=== PATIENT | male | born 1955 | race Asian ===

== ENCOUNTER 2017-06-01 17:13 | Inpatient (IN) | payer BC, MEDICAID ==
[~2017-06-01] VITALS: Ht 167.6 cm; Wt 59.0 kg
[~2017-06-01 17:13] MED LIST: ACETAMINOP650 MG/20. GT; ACETAMINOPHEN325 M1 GT; ALIGN PROBIOTIC; ALIGN PROBIOTIC GT; BACTROBAN 2% OI15 GM TOPIC; BISACODYL10 M1; BISCOLAX10 MG GT; CALCIUM 500 +1 EAC3 PO; CEFEPIME-D1 GM/50 ML IVPB; CLOTRIMAZOLE15 GM TOPIC; COLACE100 MG/10 GT; COLACE250 MG GT; Colace GT; DEXILANT30 MG ORAL; DIFLUCAN100 MG GT; ENALAPRIL MALEA10 MG GT; FLEET ENEMA133 M1; GLUCERNA 1.2; ISENTRESS400 MG ORAL; K-PHOS NEUTRAL250 MG GT; METOPROLOL TART50 MG GT; MIRALAX17 G2; MULTIVITAMIN HEX5 ML GT; MULTIVITAMINS1 EAC2 GT; NKM; NORCO 5-325 TA1 EAC1 ORAL; NORVASC5 MG GT; ONDANSETRON4 MG/2 M2 IM; OS-CAL 500+D C1 EAC1 GT; PROAIR HFA8.5 GM INH; PROTONIX40 M2 GT; SENNA LAX8.6 MG GT; SENNA8.6 M3 GT; SPIRIVA18 MCG INH; TRAZODONE HCL50 MG GT; TRUVADA1 TAB ORAL; TUMS500 MG GT; VASOTEC10 MG ORAL; Vancomycin Hcl MISC; ZITHROMAX500 M1 IVPB; ZOFRAN 4 MG4 MG/2 ML IM; ZOFRAN4 M3 GT; ZOFRAN4 MG IM; ZOFRAN4 MG/5 ML PO
[2017-06-01] MEDS ORDERED: Pantoprazole Inj IV ONE (17:30)
[2017-06-01 18:13] LABS: MEAN CORPUSCULAR HGB CONC 31.6 G/DL (32.0-36.0); MEAN CORPUSCULAR VOLUME 89 FL (80-99); MEAN PLATELET VOLUME 6.3 FL (6.5-10.1); PLATELET COUNT 377 K/UL (150-450); RED BLOOD COUNT 6.05 M/UL (4.70-6.10); RED CELL DISTRIBUTION WIDTH 12.8 % (11.6-14.8); WHITE BLOOD COUNT 14.9 K/UL (4.8-10.8)
[2017-06-01 18:16] LABS: LYMPHOCYTES % (AUTO) 4.1 % (20.0-45.0); MONOCYTES % (AUTO) 4.8 % (1.0-10.0); NEUTROPHILS % (AUTO) 90.4 % (45.0-75.0)
[2017-06-01 18:17] LABS: BASOPHILS % (AUTO) 0.7 % (0.0-2.0)
[2017-06-01 18:22] LABS: APPEARANCE,URINE CLOUDY; KETONES,URINE NEGATIVE (NEGATIVE); LEUKOCYTE ESTERASE ,URINE 3+ (NEGATIVE); NITRITE,URINE NEGATIVE (NEGATIVE); PH,URINE 8 (4.5-8.0); PROTEIN,URINE 2+ (NEGATIVE); UROBILINOGEN,URINE NORMAL MG/DL (0.0-1.0)
[2017-06-01 18:38] LABS: BACTERIA,URINE MANY /HPF; TRIPLE PHOSPHATE CRYSTAL,UR MANY /LPF; WBC,URINE 0-2 /HPF (0 - 0)
[2017-06-01 18:46] LABS: CKMB 7.8 NG/ML (0.0-3.6)
[2017-06-01 18:50] VITALS: BP 133/99
[2017-06-01 18:55] LABS: ALANINE AMINOTRANSFERASE 28 U/L (12-78); ALBUMIN/GLOBULIN RATIO 0.9 (1.0-2.7); ANION GAP 13 mmol/L (5-15); ASPARTATE AMINO TRANSFERASE 38 U/L (15-37); CARBON DIOXIDE 20 MMOL/L (21-32); CHLORIDE 99 MMOL/L (98-107); LIPASE 135 U/L (73-393); POTASSIUM 4.9 MMOL/L (3.5-5.1); SODIUM 132 MMOL/L (136-145); TOTAL PROTEIN 8.9 G/DL (6.4-8.2)
[2017-06-01 19:08] LABS: BILIRUBIN,DIRECT 0.2 MG/DL (0.0-0.3); CREATININE 1.5 MG/DL (0.55-1.30); GLOMERULAR FILTRATION RATE 47.1 mL/min (>60)
[2017-06-01] MEDS ORDERED: DULCOLAX10 MG RC (19:14)
[2017-06-01] MEDS ORDERED: FLEET ENEMA133 ML RECTAL (19:14)
[2017-06-01 19:16] LABS: CALCIUM 10.2 MG/DL (8.5-10.1)
[2017-06-01] MEDS ORDERED: CITRACAL + D E1 EACH GT (19:17)
[2017-06-01] MEDS ORDERED: OMEPRAZOLE40 M1 ORAL (19:17)
[2017-06-01] MEDS ORDERED: PAZEO2.5 ML OP (19:20)
[2017-06-01] MEDS ORDERED: PHOS-NAK PACKE1 EAC1 GT (19:20)
[2017-06-01] MEDS ORDERED: PROSCAR5 MG GT (19:20)
[2017-06-01] MEDS ORDERED: sodium chloride GT (19:22)
[2017-06-01] MEDS ORDERED: TAMSULOSIN HCL0.4 MG GT (19:22)
[2017-06-01] MEDS ORDERED: Piperacillin/Tazobactam 3.375 GM in NS 55 ML IVPB ONE (19:30)
[2017-06-01] MEDS ORDERED: Fleet's Enema 133ml RECTAL ONE (19:30)
[2017-06-01] MEDS ORDERED: Zosyn 3.375gm inj ONE (19:34)
--- NOTE | 2017-06-01 19:35 | Emergency Room Report ---
History of Present Illness General Chief Complaint: Dyspnea/Respdistress Source: Medical Record Present Illness HPI Patient is a 62-year-old male presented after increased abdominal distention as well as difficulty breathing. Patient prior history of the G-tube dependence and had previous episodes of fecal impaction. Patient was noted to having to discoloration from his Quiles catheter. The patient been given a breathing treatment by facility prior to being transported. He was noted to have increased abdominal distention. He had been recently given an enema without any resolution Allergies: Coded Allergies: NO KNOWN ALLERGIES (Unverified Allergy, Unknown, 03/02/15) Nursing Documentation-[facility] Past Medical History: No History, Except For Hx Cardiac Problems: Yes Hx Hypertension: Yes Hx Pacemaker: No Hx Asthma: No Hx COPD: Yes Hx Diabetes: No Hx Cancer: No Hx Gastrointestinal Problems: No Hx Dialysis: No Hx Neurological Problems: No Hx Cerebrovascular Accident: Yes Hx Seizures: Yes Hx Paralysis: Yes - Right sided Hemiplegia Hx Head Trauma: Yes - INTERCEREBRAL HEMORRHAGE Hx Speech Problem: Yes Hx Aphasia: Yes Hx Dysphasia: Yes Hx Weakness: Yes Physical Exam Vital Signs Date Time Temp Pulse Resp B/P (MAP) Pulse Ox O2 Delivery O2 Flow Rate FiO2 06/01/17 17:07 97.0 93 20 143/102 99 Room Air General Appearance: alert, moderate distress, Chronically Ill Eyes: bilateral eye PERRL ENT: hearing grossly normal Neck: limited range of motion Respiratory: chest non-tender, lungs clear, no rhonchi Cardiovascular #1: normal inspection, normal peripheral pulses, regular rate, rhythm Gastrointestinal: normal bowel sounds, distended, tenderness Genitourinary: other - quiles catheter in place urethral ulceration Musculoskeletal: decreased range of motion - left upper extremity Neurologic: alert, responsive, motor weakness - left upper extremity Medical Decision Making Diagnostic Impression: Primary Impression: Sepsis Additional Impressions: Quiles catheter in place on admission Obstructed Quiles catheter Feeding by G-tube ER Course Patient presented for increased distention. Differential diagnosis included wasn't limited to pneumonia, urinary tract infection, drug fever, allergic reaction, sepsis, cholecystitis, among others.Because of complexity of patient' s case laboratory testing and imaging studies were ordered. A Quiles catheter was changed with a large amount of purulent urine. The patient was noted to have CT imaging of the abdomen pelvis read by radiology which showed severe bladder distention, Quiles catheter was in the bladder. The patient started on IV antibiotics as well as IV fluids . No ureteral calculus was noted. Dr. Raza Oquendo was contacted for inpatient management due to primary care physician Labs Test 06/01/17 17:35 06/01/17 18:10 White Blood Count 14.9 K/UL (4.8-10.8) Red Blood Count 6.05 M/UL (4.70-6.10) Hemoglobin 17.0 G/DL (14.2-18.0) Hematocrit 53.7 % (42.0-52.0) Mean Corpuscular Volume 89 FL (80-99) Mean Corpuscular Hemoglobin 28.0 PG (27.0-31.0) Mean Corpuscular Hemoglobin Concent 31.6 G/DL (32.0-36.0) Red Cell Distribution Width 12.8 % (11.6-14.8) Platelet Count 377 K/UL (150-450) Mean Platelet Volume 6.3 FL (6.5-10.1) Neutrophils (%) (Auto) 90.4 % (45.0-75.0) Lymphocytes (%) (Auto) 4.1 % (20.0-45.0) Monocytes (%) (Auto) 4.8 % (1.0-10.0) Eosinophils (%) (Auto) 0.0 % (0.0-3.0) Basophils (%) (Auto) 0.7 % (0.0-2.0) Urine Color Pale yellow Urine Appearance Cloudy Urine pH 8 (4.5-8.0) Urine Specific [place] 1.010 (1.005-1.035) Urine Protein 2+ (NEGATIVE) Urine Glucose (UA) Negative (NEGATIVE) Urine Ketones Negative (NEGATIVE) Urine Occult Blood 3+ (NEGATIVE) Urine Nitrite Negative (NEGATIVE) Urine Bilirubin Negative (NEGATIVE) Urine Urobilinogen Normal MG/DL (0.0-1.0) Urine Leukocyte Esterase 3+ (NEGATIVE) Urine RBC 2-4 /HPF (0 - 0) Urine WBC 0-2 /HPF (0 - 0) Urine Squamous Epithelial Cells None /LPF (NONE/OCC) Urine Calcium Phosphate Crystals Many /LPF (NONE) Urine Triple Phosphate Crystals Many /LPF (NONE) Urine Bacteria Many /HPF (NONE) Sodium Level 132 MMOL/L (136-145) Potassium Level 4.9 MMOL/L (3.5-5.1) Chloride Level 99 MMOL/L (98-107) Carbon Dioxide Level 20 MMOL/L (21-32) Anion Gap 13 mmol/L (5-15) Blood Urea Nitrogen 35 mg/dL (7-18) Creatinine 1.5 MG/DL (0.55-1.30) Estimat Glomerular Filtration Rate 47.1 mL/min (>60) Glucose Level 122 MG/DL (74-106) Calcium Level 10.2 MG/DL (8.5-10.1) Total Bilirubin 1.2 MG/DL (0.2-1.0) Direct Bilirubin 0.2 MG/DL (0.0-0.3) Aspartate Amino Transf (AST/SGOT) 38 U/L (15-37) Alanine Aminotransferase (ALT/SGPT) 28 U/L (12-78) Alkaline Phosphatase 220 U/L (46-116) Total Creatine Kinase 702 U/L (26-308) Creatine Kinase MB 7.8 NG/ML (0.0-3.6) Creatine Kinase MB Relative Index 1.1 Troponin I 0.051 ng/mL (0.000-0.056) Total Protein 8.9 G/DL (6.4-8.2) Albumin 4.1 G/DL (3.4-5.0) Globulin 4.8 g/dL Albumin/Globulin Ratio 0.9 (1.0-2.7) Lipase 135 U/L (73-393) Lactic Acid Level 1.70 mmol/L (0.66-2.22) Last Vital Signs Date Time Temp Pulse Resp B/P (MAP) Pulse Ox O2 Delivery O2 Flow Rate FiO2 06/01/17 18:50 99.4 108 24 133/99 99 Room Air Status: improved Disposition: HOME, SELF-CARE Condition: Stable Referrals: RAZA OQUENDO (PCP) Robby Hess Jun 01, 2017 19:35
[2017-06-01 20:37] VITALS: BP 119/92
[2017-06-01] MEDS ORDERED: Sennosides 8.6mg GT PRN (21:15)
[2017-06-01] MEDS ORDERED: Acetaminophen 650mg/20.3ml GT PRN (21:15)
[2017-06-01 21:51] VITALS: BP 112/78
[2017-06-01] MEDS: TraZODone HCl 25 mg tablet GT SCH (22:30)
[2017-06-01] MEDS ORDERED: Sodium Chloride 1gm Tab GT ONE (22:30)
[2017-06-01] MEDS ORDERED: Sodium Chloride 500ML 550 ML IV SCH (22:45)
[2017-06-01] MEDS: Sodium Chloride 500ML 550 ML IV SCH (23:47)
[2017-06-02] MEDS: Sodium Chloride 500ML 550 ML IV SCH (04:49)
[2017-06-02 05:36] LABS: ALANINE AMINOTRANSFERASE 22 U/L (12-78); ALBUMIN/GLOBULIN RATIO 0.8 (1.0-2.7); ANION GAP 9 mmol/L (5-15); ASPARTATE AMINO TRANSFERASE 31 U/L (15-37); CARBON DIOXIDE 23 MMOL/L (21-32); CHLORIDE 108 MMOL/L (98-107); CREATININE 0.9 MG/DL (0.55-1.30); GLOMERULAR FILTRATION RATE > 60 mL/min (>60); MAGNESIUM 2.1 MG/DL (1.8-2.4); PHOSPHORUS 1.8 MG/DL (2.5-4.9); SODIUM 140 MMOL/L (136-145); TOTAL PROTEIN 7.2 G/DL (6.4-8.2)
[2017-06-02 05:54] LABS: BILIRUBIN,DIRECT 0.3 MG/DL (0.0-0.3)
[2017-06-02 08:00] VITALS: BP 134/93
[2017-06-02] MEDS ORDERED: Docusate 100mg cap ORAL SCH (09:00)
[2017-06-02] MEDS: Multivitamins W/Minerals 15 ML UDC GT SCH (09:15)
[2017-06-02] MEDS: Docusate 100mg/10ml Liq NG SCH (09:15)
[2017-06-02] MEDS: Pantoprazole Inj IVP SCH ×2 (09:16→21:58)
[2017-06-02 12:00] VITALS: BP 138/92
--- NOTE | 2017-06-02 13:45 | Diagnostic Imaging Report ---
Indication: Pain Technique: CT of the abdomen and pelvis utilizing automated exposure control without intravenous or oral contrast. CT dose: Total DLP 796.15 mGycm; CTDI vol 16.82 mGy Comparison: None Findings: Evaluation is limited without the use of intravenous and oral contrast. Images are also degraded by patient motion. Within these limitations, the following observations are made: Images through the lower chest demonstrate bibasilar atelectatic changes with more linear atelectasis/scarring in the left lower lobe. Heart is mildly enlarged. No pericardial effusion. There is a 1.6 cm simple cyst in the medial right hepatic lobe. Otherwise, noncontrast evaluation of the liver, gallbladder, spleen, adrenal glands and pancreas is grossly unremarkable. There is a 6.9 cm simple renal cysts arising from the lower pole of the left kidney. The bladder is markedly distended. A Lynn catheter is in place. Correlate to assure proper catheter functioning. The prostate is enlarged, particularly the central gland. There is mild fullness of the bilateral renal collecting systems, likely related to bladder distention. No urinary tract stones appreciated. There is no bowel obstruction. No free intraperitoneal air is seen. A gastrostomy tube is in place. The abdominal aorta is normal in caliber. The bones are diffusely demineralized and there are multilevel degenerative changes in the thoracolumbar spine. Degenerative changes of the bilateral hips and sacroiliac joints also noted. 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 Impression: Limited, motion degraded exam without intravenous or oral contrast. Within these limitations: * Severe bladder distention. Lynn in place. Correlate with physical exam to assure appropriate catheter functioning. Fullness of the bilateral renal collecting system likely related to bladder distention. * Prostatomegaly * Skeletal findings suggestive of ankylosing spondylitis or diffuse idiopathic skeletal hyperostosis. No acute fracture. The CT scanner at [facility] is accredited by the [employer] and the scans are performed using protocols designed to limit radiation exposure to as low as reasonably achievable to attain images of sufficient resolution adequate for diagnostic evaluation.
[2017-06-02 16:00] VITALS: BP 121/85
--- NOTE | 2017-06-02 16:09 | General Progress Note ---
Assessment/Plan Assessment/Plan GI CONSULT ATSP for abdominal distention No stool in rectal vault on examination - will try po laxatives CT shows bladder distension - RN advised to check for quiles patency Will restart TF once has a BM Thank you Trip David MD Subjective Allergies: Coded Allergies: NO KNOWN ALLERGIES (Unverified Allergy, Unknown, 03/02/15) Objective Last 24 Hour Vital Signs Date Time Temp Pulse Resp B/P (MAP) Pulse Ox O2 Delivery O2 Flow Rate FiO2 06/02/17 13:09 76 138/92 06/02/17 12:00 98.2 86 20 138/92 98 Room Air 06/02/17 12:00 76 06/02/17 09:16 134/93 06/02/17 09:16 80 134/93 06/02/17 08:00 78 06/02/17 08:00 97.9 80 19 134/93 99 Room Air 06/02/17 06:27 89 136/82 06/02/17 04:00 86 06/02/17 00:00 99 06/01/17 23:45 137 96/102 06/01/17 22:35 99.2 96 21 112/78 97 Room Air 06/01/17 21:51 96 21 112/78 97 Room Air 06/01/17 20:37 99.2 97 24 119/92 97 Room Air 06/01/17 18:50 99.4 108 24 133/99 99 Room Air 06/01/17 18:38 93 20 Room Air 06/01/17 17:07 97.0 93 20 143/102 99 Room Air Intake and Output 06/02/17 06/03/17 19:00 07:00 Intake Total 831.67 ml Balance 831.67 ml Intake Free Water 100 ml IV Total 731.67 ml Laboratory Tests 06/01/17 17:35: White Blood Count 14.9H, Red Blood Count 6.05, Hemoglobin 17.0, Hematocrit 53.7H , Mean Corpuscular Volume 89, Mean Corpuscular Hemoglobin 28.0, Mean Corpuscular Hemoglobin Concent 31.6L, Red Cell Distribution Width 12.8, Platelet Count 377, Mean Platelet Volume 6.3L, Neutrophils (%) (Auto) 90.4H, Lymphocytes (%) (Auto) 4.1L, Monocytes (%) (Auto) 4.8, Eosinophils (%) (Auto) 0.0, Basophils (%) (Auto) 0.7, Urine Color Pale yellow, Urine Appearance Cloudy , Urine pH 8, Urine Specific [place] 1.010, Urine Protein 2+H, Urine Glucose (UA ) Negative, Urine Ketones Negative, Urine Occult Blood 3+H, Urine Nitrite Negative, Urine Bilirubin Negative, Urine Urobilinogen Normal, Urine Leukocyte Esterase 3+H, Urine RBC 2-4H, Urine WBC 0-2, Urine Squamous Epithelial Cells None, Urine Calcium Phosphate Crystals Many, Urine Triple Phosphate Crystals ManyH, Urine Bacteria ManyH, Sodium Level 132L, Potassium Level 4.9, Chloride Level 99, Carbon Dioxide Level 20L, Anion Gap 13, Blood Urea Nitrogen 35H, Creatinine 1.5H, Estimat Glomerular Filtration Rate 47.1, Glucose Level 122H, Calcium Level 10.2H, Total Bilirubin 1.2H, Direct Bilirubin 0.2, Aspartate Amino Transf (AST/SGOT) 38H, Alanine Aminotransferase (ALT/SGPT) 28, Alkaline Phosphatase 220H, Total Creatine Kinase 702H, Creatine Kinase MB 7.8H, Creatine Kinase MB Relative Index 1.1, Troponin I 0.051, Total Protein 8.9H, Albumin 4.1 , Globulin 4.8, Albumin/Globulin Ratio 0.9L, Lipase 135 06/01/17 18:10: Lactic Acid Level 1.70 06/02/17 04:00: Sodium Level 140, Potassium Level 4.0, Chloride Level 108H, Carbon Dioxide Level 23, Anion Gap 9, Blood Urea Nitrogen 23H, Creatinine 0.9, Estimat Glomerular Filtration Rate > 60, Glucose Level 83, Calcium Level 9.0, Total Bilirubin 1.2H, Direct Bilirubin 0.3, Aspartate Amino Transf (AST/SGOT) 31, Alanine Aminotransferase (ALT/SGPT) 22, Alkaline Phosphatase 164H, Total Protein 7.2, Albumin 3.2L, Globulin 4.0, Albumin/Globulin Ratio 0.8L, Phosphorus Level 1.8L, Magnesium Level 2.1 Height (Feet): 5 Height (Inches): 6.00 Weight (Pounds): 130 NITATRIP PADILLA Jun 02, 2017 16:09
--- NOTE | 2017-06-02 16:40 | History & Physical ---
History and Physical History & Physicial #[id number] malfunctioning quiles and retention RI UTI sepsis HTN consiptation CARMINA SPENCE DO Jun 02, 2017 16:40
[2017-06-02] MEDS ORDERED: Sorbitol Solution UD 30ml GT ONE (17:30)
[2017-06-02] MEDS: Piperacillin/Tazobactam 3.375 GM in D5W 55 ML IVPB SCH (18:31)
[2017-06-02 20:00] VITALS: BP_SYST 121; BP_SYST 133; BP_DIAS 85; BP_DIAS 89
[2017-06-02 20:17] VITALS: BP 133/89
[2017-06-02] MEDS: TraZODone HCl 25 mg tablet GT SCH (21:58)
[2017-06-02] MEDS: Miralax 17gm pkt GT SCH (21:58)
[2017-06-02] MEDS: Tamsulosin 0.4mg cap ORAL SCH (21:58)
[2017-06-02] MEDS: Heparin 5000 units/ml inj SUBQ SCH (22:05)
--- NOTE | 2017-06-02 22:45 | History and Physical Report ---
DATE OF ADMISSION: 06/01/2017 REASON FOR ADMISSION: Shortness of breath. HISTORY OF PRESENT ILLNESS: The patient is a 62-year-old gentleman, who [facility] with increasing abdominal distention and shortness of breath. He has history of fecal impaction. He is NPO with a G-tube and Lynn catheter is in place. No episodes of nausea, vomiting, or diarrhea. He was given an enema without any resolution at the facility, admitted through the emergency room with sepsis, obstructed Lynn catheter, and fever. PAST MEDICAL HISTORY: Coronary disease, hypertension, COPD, stroke with right hemiparesis and aphasia, cerebral hemorrhage, dysphagia, and nonambulatory. MEDICATIONS: Reviewed, reconciled, and documented in the electronic medical record. ALLERGIES: No known drug allergies. SOCIAL HISTORY: Negative for tobacco, alcohol, and drugs. PHYSICAL EXAMINATION: GENERAL: At the time of my exam, he is arousable, in no acute distress, on supplemental oxygen. VITAL SIGNS: He is afebrile currently, pulse is 77, blood pressure 120/85, pulse is , and respirations are 20. He is 97% on room air. HEENT: Normocephalic and atraumatic. Oropharynx is moist. Nasal mucosa is moist. NECK: Supple without lymphadenopathy. LUNGS: Decreased breath sounds at the bases. Wheezes present. HEART: Regular rate and rhythm without a murmur. ABDOMEN: Distended, soft, and nontender. Positive bowel sounds. G-tube is in place. EXTREMITIES: Positive edema. NEUROLOGIC: He has right hemiparesis in upper and lower extremities. Cranial nerves are intact. SKIN: He has a skin rash, which appeared to be old zoster across the left breast region. DIAGNOSTIC DATA: CT of the abdomen and pelvis noted with severe bladder distention with a Lynn that was in place, prostatomegaly, and suggestion of skeletal findings for diffuse idiopathic skeletal hyperostosis or ankylosing spondylitis, renal cyst, and atelectasis. Per the emergency room record, Lynn catheter was changed out at the emergency room and a large amount of purulent urine was removed that correlates with findings that were found on CT. The patient was started on IV antibiotics. LABORATORY DATA: White count of 49, hemoglobin 17, and platelets are 377,000. His sodium was 132, potassium 4.9, chloride 90, bicarbonate 20, BUN 35, creatinine 1.5, glucose 122, and calcium 10. Lactic acid 1.7. Troponin was 0.015. Urinalysis was positive for leukocyte esterase. ASSESSMENT: 1. Urinary retention due to malfunctioning Lynn. 2. Sepsis. 3. History of fecal impaction. 4. Hypertension. 5. Zoster. 6. Gastroesophageal reflux disease. PLAN: 1. He has clinically improved. His laboratories are improving as well. 2. DVT prophylaxis. 3. Nebulizers. 4. IV antibiotics. 5. Follow up his urine culture, which has now been sent. 6. He is currently on Zosyn per pharmacy protocol. 7. Aspiration precautions. 8. G-tube feeds. 9. We will check laboratories in 24 hours. Indigo Alarcon D.O. DR: MIMI JOB#: [id number] CC:
[2017-06-03] VITALS (7 sets, daily range): BP systolic 128–148; BP diastolic 73–98
[2017-06-03] MEDS: Piperacillin/Tazobactam 3.375 GM in D5W 55 ML IVPB SCH ×3 (02:20→17:15)
[2017-06-03 05:53] LABS: BASOPHILS % (AUTO) 0.9 % (0.0-2.0); LYMPHOCYTES % (AUTO) 12.9 % (20.0-45.0); MEAN CORPUSCULAR HEMOGLOBIN 30.4 PG (27.0-31.0); MEAN CORPUSCULAR HGB CONC 33.4 G/DL (32.0-36.0); MEAN CORPUSCULAR VOLUME 91 FL (80-99); MEAN PLATELET VOLUME 6.8 FL (6.5-10.1); MONOCYTES % (AUTO) 6.2 % (1.0-10.0); PLATELET COUNT 200 K/UL (150-450); RED BLOOD COUNT 3.84 M/UL (4.70-6.10); RED CELL DISTRIBUTION WIDTH 13.6 % (11.6-14.8); WHITE BLOOD COUNT 7.3 K/UL (4.8-10.8)
[2017-06-03 06:25] LABS: ANION GAP 15 mmol/L (5-15); CARBON DIOXIDE 16 MMOL/L (21-32); CHLORIDE 114 MMOL/L (98-107); CREATININE 0.7 MG/DL (0.55-1.30); GLOMERULAR FILTRATION RATE > 60 mL/min (>60); SODIUM 146 MMOL/L (136-145)
[2017-06-03 07:07] LABS: BASOPHILS % (AUTO) 1.1 % (0.0-2.0); EOSINOPHILS % (AUTO) 2.4 % (0.0-3.0); LYMPHOCYTES % (AUTO) 11.9 % (20.0-45.0); MEAN CORPUSCULAR HEMOGLOBIN 30.1 PG (27.0-31.0); MEAN CORPUSCULAR HGB CONC 33.5 G/DL (32.0-36.0); MEAN CORPUSCULAR VOLUME 90 FL (80-99); MEAN PLATELET VOLUME 6.9 FL (6.5-10.1); MONOCYTES % (AUTO) 6.1 % (1.0-10.0); NEUTROPHILS % (AUTO) 78.6 % (45.0-75.0); PLATELET COUNT 276 K/UL (150-450); RED BLOOD COUNT 4.59 M/UL (4.70-6.10); RED CELL DISTRIBUTION WIDTH 13.5 % (11.6-14.8); WHITE BLOOD COUNT 8.1 K/UL (4.8-10.8)
[2017-06-03 07:26] LABS: ANION GAP 10 mmol/L (5-15); CALCIUM 8.8 MG/DL (8.5-10.1); CARBON DIOXIDE 21 MMOL/L (21-32); CHLORIDE 110 MMOL/L (98-107); CREATININE 0.7 MG/DL (0.55-1.30); GLOMERULAR FILTRATION RATE > 60 mL/min (>60); POTASSIUM 3.7 MMOL/L (3.5-5.1); SODIUM 141 MMOL/L (136-145)
[2017-06-03 07:32] LABS: CALCIUM 5.9 MG/DL (8.5-10.1)
[2017-06-03 07:33] LABS: POTASSIUM 2.6 MMOL/L (3.5-5.1)
[2017-06-03] MEDS: Docusate 100mg/10ml Liq NG SCH (09:00)
[2017-06-03] MEDS: Pantoprazole Inj IVP SCH ×2 (09:48→20:44)
[2017-06-03] MEDS: Multivitamins W/Minerals 15 ML UDC GT SCH (09:49)
[2017-06-03] MEDS: Heparin 5000 units/ml inj SUBQ SCH ×2 (09:50→20:48)
--- NOTE | 2017-06-03 09:59 | Pulmonology Progress Note ---
Assessment/Plan Assessment/Plan ASSESSMENT: 1. Urinary retention due to malfunctioning Quiles. 2. Sepsis. 3. History of fecal impaction. 4. Hypertension. 5. Zoster. 6. Gastroesophageal reflux disease. PLAN: 1. He has clinically improved and laboratories are improving as well. 2. DVT prophylaxis. 3. Nebulizers. 4. IV antibiotics. 5. Follow up his urine culture, which has now been sent. 6. He is currently on Zosyn per pharmacy protocol. 7. Aspiration precautions. 8. G-tube feeds. Subjective Constitutional: Reports: no symptoms HEENT: Repors: no symptoms Respiratory: Reports: no symptoms Cardiovascular: Reports: no symptoms Gastrointestinal/Abdominal: Reports: no symptoms Genitourinary: Reports: no symptoms Neurologic: Reports: no symptoms Allergies: Coded Allergies: NO KNOWN ALLERGIES (Unverified Allergy, Unknown, 03/02/15) Subjective better today uop clear in quiles toelrating po denies cp nv or bleeding nonambulatory on RA Objective Last 24 Hour Vital Signs Date Time Temp Pulse Resp B/P (MAP) Pulse Ox O2 Delivery O2 Flow Rate FiO2 06/03/17 09:18 98.2 74 19 141/98 97 Room Air 06/03/17 08:00 62 06/03/17 08:00 98.2 74 19 141/98 97 Room Air 06/03/17 06:13 74 133/90 06/03/17 04:00 98.3 81 20 133/90 100 Room Air 06/03/17 04:00 74 06/03/17 00:00 71 06/03/17 00:00 98.6 82 20 128/84 97 Room Air 06/02/17 22:07 87 133/89 06/02/17 21:59 133/89 06/02/17 20:00 81 06/02/17 20:00 98.0 87 20 133/89 97 Room Air 06/02/17 16:00 77 06/02/17 16:00 98.2 77 20 121/85 97 Room Air 06/02/17 13:09 76 138/92 06/02/17 12:00 98.2 86 20 138/92 98 Room Air 06/02/17 12:00 76 Intake and Output 06/03/17 06/04/17 19:00 07:00 Intake Total 200 ml Balance 200 ml IV Total 200 ml General Appearance: WD/WN HEENT: atraumatic, anicteric Respiratory/Chest: lungs clear Cardiovascular: normal rate Abdomen: soft, non tender, distended, other - get site .cdi Skin: no rash, no lesions Neurologic/Psychiatric: normal mood/affect, motor weakness - right Lymphatic: no neck adenopathy Microbiology Date/Time Source Procedure Growth Status 06/01/17 19:20 Blood Blood Culture - Preliminary NO GROWTH AFTER 24 HOURS Resulted 06/01/17 19:05 Blood Blood Culture - Preliminary NO GROWTH AFTER 24 HOURS Resulted Laboratory Tests 06/03/17 05:00: White Blood Count 7.3#, Red Blood Count 3.84L, Hemoglobin 11.7#L, Hematocrit 34.9#L, Mean Corpuscular Volume 91, Mean Corpuscular Hemoglobin 30.4, Mean Corpuscular Hemoglobin Concent 33.4, Red Cell Distribution Width 13.6, Platelet Count 200, Mean Platelet Volume 6.8, Neutrophils (%) (Auto) 78.0H, Lymphocytes ( %) (Auto) 12.9L, Monocytes (%) (Auto) 6.2, Eosinophils (%) (Auto) 2.0, Basophils (%) (Auto) 0.9, Sodium Level 146H, Potassium Level 2.6*L, Chloride Level 114H, Carbon Dioxide Level 16L, Anion Gap 15, Blood Urea Nitrogen 9, Creatinine 0.7, Estimat Glomerular Filtration Rate > 60, Glucose Level 194#H, Calcium Level 5.9#*L 06/03/17 06:55: White Blood Count 8.1, Red Blood Count 4.59L, Hemoglobin 13.8L, Hematocrit 41.4L , Mean Corpuscular Volume 90, Mean Corpuscular Hemoglobin 30.1, Mean Corpuscular Hemoglobin Concent 33.5, Red Cell Distribution Width 13.5, Platelet Count 276, Mean Platelet Volume 6.9, Neutrophils (%) (Auto) 78.6H, Lymphocytes ( %) (Auto) 11.9L, Monocytes (%) (Auto) 6.1, Eosinophils (%) (Auto) 2.4, Basophils (%) (Auto) 1.1, Sodium Level 141, Potassium Level 3.7, Chloride Level 110H, Carbon Dioxide Level 21, Anion Gap 10, Blood Urea Nitrogen 11, Creatinine 0.7, Estimat Glomerular Filtration Rate > 60, Glucose Level 84#, Calcium Level 8.8# Current Medications Medications (Trade) Dose Ordered Sig/Kehinde Route PRN Reason Start Time Stop Time Status Last Admin Dose Admin Acetaminophen (Tylenol) 650 mg Q6H PRN GT Mild Pain/Temp > 100.5 06/01/17 21:15 07/01/17 21:14 Acyclovir (Zovirax) 800 mg FIVE TIMES A DAY GT 06/02/17 07:00 07/02/17 06:59 06/03/17 06:13 Amlodipine Besylate (Norvasc) 5 mg DAILY GT 06/02/17 09:00 07/02/17 08:59 06/02/17 09:16 Bisacodyl (Dulcolax) 10 mg DAILYPRN PRN RECTAL Constipation 06/01/17 21:15 07/01/17 21:14 Docusate Sodium (Colace) 100 mg DAILY NG 06/02/17 09:00 07/02/17 08:59 06/02/17 09:15 Enalapril Maleate (Vasotec) 20 mg EVERY 12 HOURS GT 06/02/17 09:00 07/02/17 08:59 06/02/17 21:59 Finasteride (Proscar) 5 mg DAILY ORAL 06/02/17 09:00 07/02/17 08:59 06/02/17 09:15 Heparin Sodium (Porcine) (Heparin 5000 units/ml) 5,000 units EVERY 12 HOURS SUBQ 06/02/17 21:00 07/02/17 20:59 06/02/17 22:05 Metoprolol Tartrate (Lopressor) 100 mg Q8HR GT 06/01/17 22:00 07/01/17 21:59 06/03/17 06:13 Multivitamins (Multivitamins W/ Minerals 15ml Liquid) 15 ml DAILY GT 06/02/17 09:00 07/02/17 08:59 06/02/17 09:15 Ondansetron HCl (Zofran ODT) 4 mg Q6H PRN GT Nausea & Vomiting 06/01/17 21:15 07/01/17 21:14 Pantoprazole (Protonix) 40 mg EVERY 12 HOURS IVP 06/02/17 09:00 07/02/17 08:59 06/02/17 21:58 Piperacillin Sod/ Tazobactam Sod 3.375 gm/Dextrose 55 ml @ 13.75 mls/ hr Q8H IVPB 06/02/17 18:00 06/09/17 17:59 06/03/17 02:20 Polyethylene Glycol (Miralax) 17 gm BEDTIME GT 06/02/17 21:00 07/02/17 20:59 06/02/17 21:58 Sennosides (Senokot) 8.6 mg DAILYPRN PRN GT Constipation 06/01/17 21:15 07/01/17 21:14 Sodium Chloride 1,000 ml @ 100 mls/hr Q10H IV 06/02/17 11:00 07/02/17 10:59 06/03/17 06:13 Tamsulosin HCl (Flomax) 0.4 mg BEDTIME ORAL 06/02/17 21:00 07/02/17 20:59 06/02/17 21:58 Trazodone HCl (Desyrel) 12.5 mg BEDTIME GT 06/01/17 22:30 07/01/17 22:29 06/02/17 21:58 CARMINA SPENCE DO Jun 03, 2017 09:59
--- NOTE | 2017-06-03 13:32 | General Progress Note ---
Assessment/Plan Assessment/Plan Assessment - urinary retention - CVA - dysphagia - CAD - COPD Recommendations - resume TF - laxatives PRN - Elevate HOB Subjective Allergies: Coded Allergies: NO KNOWN ALLERGIES (Unverified Allergy, Unknown, 03/02/15) Subjective awake calm (+) BM no vomiting Objective Last 24 Hour Vital Signs Date Time Temp Pulse Resp B/P (MAP) Pulse Ox O2 Delivery O2 Flow Rate FiO2 06/03/17 12:00 64 06/03/17 12:00 97.7 97 20 138/92 97 Room Air 06/03/17 09:49 141/98 06/03/17 09:48 74 141/98 06/03/17 09:18 98.2 74 19 141/98 97 Room Air 06/03/17 08:00 62 06/03/17 08:00 98.2 74 19 141/98 97 Room Air 06/03/17 06:13 74 133/90 06/03/17 04:00 98.3 81 20 133/90 100 Room Air 06/03/17 04:00 74 06/03/17 00:00 71 06/03/17 00:00 98.6 82 20 128/84 97 Room Air 06/02/17 22:07 87 133/89 06/02/17 21:59 133/89 06/02/17 20:00 81 06/02/17 20:00 98.0 87 20 133/89 97 Room Air 06/02/17 16:00 77 06/02/17 16:00 98.2 77 20 121/85 97 Room Air Intake and Output 06/03/17 06/04/17 19:00 07:00 Intake Total 200 ml Balance 200 ml IV Total 200 ml # Bowel Movements 1 Laboratory Tests 06/03/17 05:00: White Blood Count 7.3#, Red Blood Count 3.84L, Hemoglobin 11.7#L, Hematocrit 34.9#L, Mean Corpuscular Volume 91, Mean Corpuscular Hemoglobin 30.4, Mean Corpuscular Hemoglobin Concent 33.4, Red Cell Distribution Width 13.6, Platelet Count 200, Mean Platelet Volume 6.8, Neutrophils (%) (Auto) 78.0H, Lymphocytes ( %) (Auto) 12.9L, Monocytes (%) (Auto) 6.2, Eosinophils (%) (Auto) 2.0, Basophils (%) (Auto) 0.9, Sodium Level 146H, Potassium Level 2.6*L, Chloride Level 114H, Carbon Dioxide Level 16L, Anion Gap 15, Blood Urea Nitrogen 9, Creatinine 0.7, Estimat Glomerular Filtration Rate > 60, Glucose Level 194#H, Calcium Level 5.9#*L 06/03/17 06:55: White Blood Count 8.1, Red Blood Count 4.59L, Hemoglobin 13.8L, Hematocrit 41.4L , Mean Corpuscular Volume 90, Mean Corpuscular Hemoglobin 30.1, Mean Corpuscular Hemoglobin Concent 33.5, Red Cell Distribution Width 13.5, Platelet Count 276, Mean Platelet Volume 6.9, Neutrophils (%) (Auto) 78.6H, Lymphocytes ( %) (Auto) 11.9L, Monocytes (%) (Auto) 6.1, Eosinophils (%) (Auto) 2.4, Basophils (%) (Auto) 1.1, Sodium Level 141, Potassium Level 3.7, Chloride Level 110H, Carbon Dioxide Level 21, Anion Gap 10, Blood Urea Nitrogen 11, Creatinine 0.7, Estimat Glomerular Filtration Rate > 60, Glucose Level 84#, Calcium Level 8.8# Height (Feet): 5 Height (Inches): 6.00 Weight (Pounds): 130 Objective Elderly man NCAT supple CTA RRR abd softer, less distended Ext (R) sided contractures (R) ximena HERNAN GORDON Jun 03, 2017 13:32
--- NOTE | 2017-06-03 14:29 | Cardiology Report ---
APPROVED REPORT EKG Measurement Heart [id number] Sinus tachycardia Otherwise normal ECG
[2017-06-03] MEDS ORDERED: NS 500ML ONE (17:34)
--- NOTE | 2017-06-03 20:41 | Wound Care Consultation ---
Wound Assessment Wound Assessment #1: Wound Number: 1 Wound Present on Admission: Yes New Wound: No Status Change of Wound: No Wound Location Body Site Modif: right, plantar Wound Location Body Site: metatarsal head - 1st Wound Type: pressure ulcer Nahid Test: Does not Nahid Pressure Ulcer Stage: II Wound Thickness: Partial Thickness Wound Length: 0.5 Wound Width: 0.3 Wound Depth: less than 0.1 Percent of Wound [place]/Red: 100 Wound Drainage Amount: None Wound Drainage Odor: None/Absent Tissue Surrounding Wound: Intact Wound General Appearance: Reddened Wound Assessment #2: Wound Number: 2 Wound Present on Admission: Yes New Wound: No Status Change of Wound: No Wound Location Body Site: perineal area Wound Type: chemical burn Nahid Test: Does not Nahid Percent of Wound [place]/Red: 100 Wound Drainage Amount: None Wound Drainage Odor: None/Absent Tissue Surrounding Wound: Erythemic Wound General Appearance: Reddened Wound Assessment #3: Wound Number: 3 Wound Present on Admission: Yes New Wound: No Status Change of Wound: No Wound Location Body Site Modif: mid Wound Location Body Site: coccyx Wound Type: scar - two sites Nahid Test: Does not Nahid Wound Thickness: Full Thickness Wound Length: 2.0 Wound Width: 3.5 Percent of Wound [place]/Red: 100 Wound Drainage Amount: None Wound Drainage Odor: None/Absent Tissue Surrounding Wound: Intact Wound General Appearance: Asymptomatic Wound Comment #1 Right plantar 1st metatarsal head stage II pressure ulcer #2 Chemical burn on perineal area #3 Two sites, full thickness scar tissue on coccygeal area Recommendation -Local wound care per protocol -Keep clean and dry -Turn and reposition -Low air loss mattress -Optimize nutrition -Offload both heels -Heel protector on both heels -Assess and f/u accordingly for any changes SIMONE AVITIA RN Jun 03, 2017 20:41
[2017-06-03] MEDS: Tamsulosin 0.4mg cap ORAL SCH (20:44)
[2017-06-03] MEDS: TraZODone HCl 25 mg tablet GT SCH (20:46)
[2017-06-03] MEDS: Miralax 17gm pkt GT SCH (20:46)
[2017-06-04] VITALS: BP_SYST 121; BP_SYST 148; BP_DIAS 51; BP_DIAS 78
[2017-06-04] MEDS: Piperacillin/Tazobactam 3.375 GM in D5W 55 ML IVPB SCH ×3 (02:10→18:22)
[2017-06-04 04:00] VITALS: BP 140/88
--- NOTE | 2017-06-04 04:45 | Consultation ---
DATE OF CONSULTATION: 06/02/2017 GASTROENTEROLOGY CONSULTATION CONSULTING PHYSICIAN: Trip David M.D. REFERRING PHYSICIAN: Jose J Oquendo M.D. CHIEF COMPLAINT: I was asked to see this patient by Dr. Jose J Oquendo for evaluation of abdominal distention. HISTORY OF PRESENT ILLNESS: The patient is a debilitated 62-year-old man who is from a longterm, who was brought to the hospital with progressive abdominal distention and shortness of breath. The patient himself is unable to provide any history due to his expressive aphasia, and therefore, most of the information is only available from the chart. The patient has a history of fecal impaction. There is a concern that he may have a recurrent fecal impaction. He does have a Lynn catheter and a gastrostomy tube in place. There has been no nausea or vomiting. In the emergency room, the patient appeared to be uroseptic and obstructed, and therefore, he was admitted. PAST MEDICAL HISTORY: History of coronary artery disease, hypertension, COPD, stroke with right-sided hemiparesis, hemiplegia, cerebral hemorrhage, dysphagia and bedbound state. MEDICATIONS: See the chart list for details. FAMILY HISTORY: Noncontributory. SOCIAL HISTORY: The patient does not smoke, drink, or use drugs. ALLERGIES: None. REVIEW OF SYSTEMS: Otherwise negative. PHYSICAL EXAMINATION: GENERAL: Debilitated, [place] man, seen in his room. HEENT: Normocephalic and atraumatic. Sclerae anicteric. Oropharynx clear. NECK: Supple. CHEST: Clear to auscultation. CARDIOVASCULAR: Revealed regular rate. ABDOMEN: Soft, mildly distended especially in the suprapubic region. EXTREMITIES: Revealed no edema. There was contraction deformity noted in the right upper extremity and right side of the body. NEUROLOGIC: Notable for stroke with right-sided hemiplegia and aphasia. RECTAL: Exam revealed an empty rectal vault. LABORATORY AND DIAGNOSTIC DATA: CT scan was noted. ASSESSMENT: This patient has abdominal distention, but does not appear to be impacted in the rectum. The CT scan also does not show any evidence of significant stool loading in the abdomen. Instead, it shows urinary system distention and I suspect that the catheter may be occluded since Lynn catheter does appear to be in the bladder. I have instructed the nursing staff to flush the catheter and if necessary to replace it to maintain patency. In the meantime, I will give the patient some laxatives to clear out his bowels. Should the gastrointestinal tract clear, then his tube feeding can be restarted. Should the urinary symptoms not respond, then Urology consultation can be considered. RECOMMENDATIONS: Per above discussion and per orders written in the chart. Thank you for asking me to participate in the care of this patient. Trip David M.D. DR: LANRE JOB#: [id number] CC: [email or web address]
[2017-06-04 06:12] LABS: BASOPHILS % (AUTO) 1.7 % (0.0-2.0); EOSINOPHILS % (AUTO) 4.1 % (0.0-3.0); LYMPHOCYTES % (AUTO) 22.3 % (20.0-45.0); MEAN CORPUSCULAR HEMOGLOBIN 30.1 PG (27.0-31.0); MEAN CORPUSCULAR HGB CONC 33.7 G/DL (32.0-36.0); MEAN CORPUSCULAR VOLUME 89 FL (80-99); MEAN PLATELET VOLUME 7.3 FL (6.5-10.1); MONOCYTES % (AUTO) 11.4 % (1.0-10.0); NEUTROPHILS % (AUTO) 60.6 % (45.0-75.0); PLATELET COUNT 250 K/UL (150-450); RED BLOOD COUNT 4.61 M/UL (4.70-6.10); RED CELL DISTRIBUTION WIDTH 13.2 % (11.6-14.8)
[2017-06-04 06:25] LABS: ANION GAP 9 mmol/L (5-15); CALCIUM 8.5 MG/DL (8.5-10.1); CARBON DIOXIDE 23 MMOL/L (21-32); CHLORIDE 106 MMOL/L (98-107); CREATININE 0.6 MG/DL (0.55-1.30); GLOMERULAR FILTRATION RATE > 60 mL/min (>60); POTASSIUM 3.3 MMOL/L (3.5-5.1); SODIUM 138 MMOL/L (136-145)
[2017-06-04 08:00] VITALS: BP 152/102
[2017-06-04] MEDS: Multivitamins W/Minerals 15 ML UDC GT SCH (09:10)
[2017-06-04] MEDS: Pantoprazole Inj IVP SCH ×2 (09:10→21:24)
[2017-06-04] MEDS: Docusate 100mg/10ml Liq NG SCH (09:11)
[2017-06-04] MEDS: Heparin 5000 units/ml inj SUBQ SCH ×2 (09:13→21:27)
--- NOTE | 2017-06-04 09:22 | General Progress Note ---
Assessment/Plan Assessment/Plan Assessment - urinary retention - CVA - dysphagia - CAD - COPD Recommendations - laxatives PRN - Elevate HOB - follow exam Subjective Allergies: Coded Allergies: NO KNOWN ALLERGIES (Unverified Allergy, Unknown, 03/02/15) Subjective awake calm No abdominal complaints Objective Last 24 Hour Vital Signs Date Time Temp Pulse Resp B/P (MAP) Pulse Ox O2 Delivery O2 Flow Rate FiO2 06/04/17 09:11 152/102 06/04/17 09:11 91 152/102 06/04/17 08:00 97.7 91 20 152/102 98 Room Air 06/04/17 06:00 57 138/90 06/04/17 04:00 75 06/04/17 00:00 53 06/04/17 00:00 97.5 74 20 121/51 96 28 06/04/17 00:00 97.7 77 20 148/78 97 Room Air 06/03/17 21:46 54 128/54 06/03/17 20:45 148/78 06/03/17 20:00 97.7 77 20 148/73 97 Room Air 06/03/17 20:00 53 06/03/17 16:00 98.1 73 18 128/98 98 Room Air 06/03/17 16:00 73 06/03/17 13:44 64 138/92 06/03/17 12:00 64 06/03/17 12:00 97.7 97 20 138/92 97 Room Air 06/03/17 09:49 141/98 06/03/17 09:48 74 141/98 Laboratory Tests 06/04/17 05:45: White Blood Count 5.0, Red Blood Count 4.61L, Hemoglobin 13.9L, Hematocrit 41.2L , Mean Corpuscular Volume 89, Mean Corpuscular Hemoglobin 30.1, Mean Corpuscular Hemoglobin Concent 33.7, Red Cell Distribution Width 13.2, Platelet Count 250, Mean Platelet Volume 7.3, Neutrophils (%) (Auto) 60.6, Lymphocytes (% ) (Auto) 22.3, Monocytes (%) (Auto) 11.4H, Eosinophils (%) (Auto) 4.1H, Basophils (%) (Auto) 1.7, Sodium Level 138, Potassium Level 3.3L, Chloride Level 106, Carbon Dioxide Level 23, Anion Gap 9, Blood Urea Nitrogen 7, Creatinine 0.6, Estimat Glomerular Filtration Rate > 60, Glucose Level 108H, Calcium Level 8.5 Height (Feet): 5 Height (Inches): 6.00 Weight (Pounds): 130 Objective Elderly man NCAT supple CTA RRR abd softer, less distended Ext (R) sided contractures (R) ximena HERNAN GORDON Jun 04, 2017 09:22
[2017-06-04 12:00] VITALS: BP 129/99
--- NOTE | 2017-06-04 15:59 | General Progress Note ---
Assessment/Plan Assessment/Plan 1. Urinary retention due to malfunctioning Lynn. 2. Zoster. 3. History of fecal impaction. 4. Hypertension. 5. Gastroesophageal reflux disease. Acyclovir Lynn laxatives dc plan tomorrow Subjective ROS Limited/Unobtainable: Yes Allergies: Coded Allergies: NO KNOWN ALLERGIES (Unverified Allergy, Unknown, 03/02/15) Objective Last 24 Hour Vital Signs Date Time Temp Pulse Resp B/P (MAP) Pulse Ox O2 Delivery O2 Flow Rate FiO2 06/04/17 13:27 91 152/102 06/04/17 12:00 90 06/04/17 12:00 97.7 100 20 129/99 96 Room Air 06/04/17 09:11 152/102 06/04/17 09:11 91 152/102 06/04/17 08:00 97.7 91 20 152/102 98 Room Air 06/04/17 08:00 85 06/04/17 06:00 57 138/90 06/04/17 04:00 75 06/04/17 00:00 53 06/04/17 00:00 97.5 74 20 121/51 96 28 06/04/17 00:00 97.7 77 20 148/78 97 Room Air 06/03/17 21:46 54 128/54 06/03/17 20:45 148/78 06/03/17 20:00 97.7 77 20 148/73 97 Room Air 06/03/17 20:00 53 06/03/17 16:00 98.1 73 18 128/98 98 Room Air 06/03/17 16:00 73 Intake and Output 06/04/17 06/05/17 19:00 07:00 Intake Total 455.00 ml Balance 455.00 ml IV Total 455.00 ml Laboratory Tests 06/04/17 05:45: White Blood Count 5.0, Red Blood Count 4.61L, Hemoglobin 13.9L, Hematocrit 41.2L , Mean Corpuscular Volume 89, Mean Corpuscular Hemoglobin 30.1, Mean Corpuscular Hemoglobin Concent 33.7, Red Cell Distribution Width 13.2, Platelet Count 250, Mean Platelet Volume 7.3, Neutrophils (%) (Auto) 60.6, Lymphocytes (% ) (Auto) 22.3, Monocytes (%) (Auto) 11.4H, Eosinophils (%) (Auto) 4.1H, Basophils (%) (Auto) 1.7, Sodium Level 138, Potassium Level 3.3L, Chloride Level 106, Carbon Dioxide Level 23, Anion Gap 9, Blood Urea Nitrogen 7, Creatinine 0.6, Estimat Glomerular Filtration Rate > 60, Glucose Level 108H, Calcium Level 8.5 Height (Feet): 5 Height (Inches): 6.00 Weight (Pounds): 130 General Appearance: no apparent distress, alert Cardiovascular: normal rate Respiratory/Chest: lungs clear Abdomen: non tender, no mass, distended Genitourinary/Rectal: other - Lynn Skin: rash - L chest RAZA AGUILAR Jun 04, 2017 15:59
[2017-06-04 16:00] VITALS: BP 130/83
[2017-06-04 20:00] VITALS: BP 132/88
[2017-06-04] MEDS: Miralax 17gm pkt GT SCH (21:23)
[2017-06-04] MEDS: TraZODone HCl 25 mg tablet GT SCH (21:23)
[2017-06-04] MEDS: Tamsulosin 0.4mg cap ORAL SCH (21:24)
[2017-06-05] VITALS: BP 130/84
[2017-06-05] MEDS: Piperacillin/Tazobactam 3.375 GM in D5W 55 ML IVPB SCH ×2 (02:19→10:41)
[2017-06-05 04:00] VITALS: BP 130/89
[2017-06-05 05:47] LABS: ANION GAP 7 mmol/L (5-15); CALCIUM 8.4 MG/DL (8.5-10.1); CARBON DIOXIDE 24 MMOL/L (21-32); CHLORIDE 106 MMOL/L (98-107); CREATININE 0.6 MG/DL (0.55-1.30); GLOMERULAR FILTRATION RATE > 60 mL/min (>60); SODIUM 137 MMOL/L (136-145)
[2017-06-05 08:00] VITALS: BP 148/96
[2017-06-05] MEDS ORDERED: ZOSYN 3.373.375 GM/1 IVPB (08:52)
[2017-06-05] MEDS: Multivitamins W/Minerals 15 ML UDC GT SCH (10:37)
[2017-06-05] MEDS: Docusate 100mg/10ml Liq NG SCH (10:37)
[2017-06-05] MEDS: Pantoprazole Inj IVP SCH (10:38)
[2017-06-05] MEDS: Heparin 5000 units/ml inj SUBQ SCH (10:40)
[2017-06-05 12:00] VITALS: BP 137/92
[2017-06-05] MEDS ORDERED: ZOVIRAX400 MG GT (12:41)
[2017-06-05 12:55] VITALS: BP 137/92
[2017-06-05] MEDS ORDERED: NS 500ML ONE (14:39)
--- NOTE | 2017-06-05 18:25 | Discharge Summary ---
Discharge Summary Hospital Course Date of Admission Jun 01, 2017 at 19:20 Date of Discharge Jun 05, 2017 at 14:40 Admitting Diagnosis sepsis, anemia HPI Mentalasti Claudette Martel is a 62 year old male who was admitted on Jun 01, 2017 at 19:20 for Sepsis,Anemia Hospital Course [id number] Discharge Discharge Disposition Patient was discharged to snf Discharge Diagnoses: Kenyetta Shannon NP Jun 05, 2017 18:25
--- NOTE | 2017-06-05 18:52 | General Progress Note ---
Assessment/Plan Assessment/Plan Assessment - urinary retention - CVA - dysphagia - CAD - COPD Recommendations - laxatives PRN - Elevate HOB - follow exam - d/c planning Subjective Allergies: Coded Allergies: NO KNOWN ALLERGIES (Unverified Allergy, Unknown, 03/02/15) Subjective awake calm No abdominal complaints for discharge today Objective Last 24 Hour Vital Signs Date Time Temp Pulse Resp B/P (MAP) Pulse Ox O2 Delivery O2 Flow Rate FiO2 06/05/17 12:55 77 137/92 06/05/17 12:00 97.5 77 24 137/92 97 Room Air 06/05/17 12:00 86 06/05/17 10:38 148/96 06/05/17 10:38 71 148/96 06/05/17 09:03 64 06/05/17 08:00 97.0 71 24 148/96 97 Room Air 06/05/17 06:21 76 130/89 06/05/17 04:00 99.0 75 20 130/89 98 Room Air 06/05/17 04:00 76 06/05/17 00:00 98.1 66 20 130/84 99 Room Air 06/05/17 00:00 61 06/04/17 21:25 77 132/88 06/04/17 21:24 132/88 06/04/17 20:00 98.0 77 20 132/88 98 Room Air 06/04/17 20:00 76 Intake and Output 06/05/17 06/06/17 19:00 07:00 Intake Total 60 ml Output Total 1100 ml Balance -1040 ml Tube Feeding 60 ml Output Urine Total 1100 ml # Bowel Movements 3 Laboratory Tests 06/05/17 03:30: Sodium Level 137, Potassium Level 4.0, Chloride Level 106, Carbon Dioxide Level 24, Anion Gap 7, Blood Urea Nitrogen 7, Creatinine 0.6, Estimat Glomerular Filtration Rate > 60, Glucose Level 127H, Calcium Level 8.4L Height (Feet): 5 Height (Inches): 6.00 Weight (Pounds): 130 Objective Elderly man NCAT supple CTA RRR abd softer, less distended Ext (R) sided contractures (R) ximena HERNAN GORDON Jun 05, 2017 18:52
--- NOTE | 2017-06-06 03:45 | Discharge Summary 2 SIG ---
DATE OF ADMISSION: 06/01/2017 DATE OF DISCHARGE: 06/05/2017 TRAVELING CRANE OPERATOR: Trip David M.D. BRIEF HOSPITAL COURSE: The patient is a 62-year-old gentleman, who presented from detention with increasing abdominal distention and shortness of breath. He has history of fecal impaction. He is NPO with G-tube and Lynn catheter in place. No episode of nausea, vomiting, or diarrhea. He was given an enema without any resolution. On evaluation at ED, blood work showed leukocytosis. Lynn catheter was changed and had a large amount of purulent urine. CT of the abdomen and pelvis showed severe bladder distention. He was started on IV antibiotics as well as IV fluids. Creatinine was 1.9. BUN was 35. He was admitted for sepsis and obstructed Lynn catheter with urinary retention. He was started on IV Zosyn. He was seen by Dr. David and on examination, there was no stool in the rectal vault. He was given laxatives. He had positive BM. Tube feeding was started. Urine culture showed growth of gram-negative bacillus. Potassium was replenished. He was given acyclovir 800 mg 5 times a day via G-tube. He came in with a stage II pressure ulcer on the right plantar first metatarsal head and a full-thickness scar on the coccygeal area with chemical burn on the perineal area. He was given wound care. He was eventually subsequently discharged back to detention. FINAL DIAGNOSES: 1. Urinary retention due to malfunctioning Lynn catheter. 2. Zoster. 3. History of fecal impaction. 4. Hypertension. 5. Gastroesophageal reflux disease. DISPOSITION: The patient was discharged back to [facility]. DISCHARGE MEDICATIONS: Refer to medication list. Jose J Oquendo M.D. I have been assigned to dictate discharge summary on this account and I was not involved in the patient's management. Kenyetta Shannon N.P. DR: NOE JOB#: [id number] CC: [email or web address]
== END 2017-06-05 14:40 | DRG 699 ==
LOC: EDBD 17:13 → EMR 17:28 → 2W 19:20 → EDBEDREQ 20:29
DX: T83.018A Breakdown (mechanical) of other urinary catheter, initial encounter (principal); I69.351 Hemiplegia and hemiparesis following cerebral infarction affecting right dominant side; B02.9 Zoster without complications; L89.892 Pressure ulcer of other site, stage 2; R13.10 Dysphagia, unspecified; I10 Essential (primary) hypertension; Y84.6 Urinary catheterization as the cause of abnormal reaction of the patient, or of later complication, without mention of misadventure at the time of the procedure; R33.8 Other retention of urine; K21.9 Gastro-esophageal reflux disease without esophagitis; I25.10 Atherosclerotic heart disease of native coronary artery without angina pectoris; J44.9 Chronic obstructive pulmonary disease, unspecified
CPT/HCPCS: 36415; 74176; 80048; 80053; 81003; 82248; 82550; 82553; 83605; 83690; 83735; 84100; 84484; 85025; 86850; 86900; 86901; 87040; 87081; 87086; 87181; 93005; 99285; J8499

== ENCOUNTER 2018-05-30 04:32 | Inpatient (IN) | payer MEDICARE, BC, MEDICAID ==
[~2018-05-30] VITALS: Ht 162.6 cm; Wt 72.6 kg
[~2018-05-30 04:32] MED LIST changes: +CITRACAL + D E1 EACH GT; +DULCOLAX10 MG RC; +FLEET ENEMA133 ML RECTAL; +OMEPRAZOLE40 M1 ORAL; +PAZEO2.5 ML OP; +PHOS-NAK PACKE1 EAC1 GT; +PROSCAR5 MG GT; +TAMSULOSIN HCL0.4 MG GT; +ZOSYN 3.373.375 GM/1 IVPB; +ZOVIRAX400 MG GT; +sodium chloride GT
[2018-05-30 04:35] VITALS: BP 134/95
[2018-05-30] MEDS ORDERED: Acetaminophen 500mg (ES) tab ORAL ONE (04:45)
[2018-05-30] MEDS ORDERED: NS 1000ml 2,200 ML IVLG ONE (04:45)
--- NOTE | 2018-05-30 04:54 | Emergency Room Report ---
History of Present Illness General Chief Complaint: Dyspnea/Respdistress Source: Medical Record, EMS Present Illness HPI This is a 63-year-old male with a history of CVA, G-tube, COPD who presents with chief complaint of shortness of breath. History is limited because patient is nonverbal. Per EMS, jail called 911 because he was breathing fast. No cough or congestion. Questionable fever. Onset tonight. No meds given. Allergies: Coded Allergies: NO KNOWN ALLERGIES (Unverified Allergy, Unknown, 03/02/15) Patient History Past Medical History: see triage record, old chart reviewed, HTN, COPD Past Surgical History: other Pertinent Family History: none Social History: Denies: smoking Immunizations: other Reviewed Nursing Documentation: PMH: Agreed; PSxH: Agreed Nursing Documentation-PMH Hx Cardiac Problems: Yes - atherosclerotic heart disease Hx Hypertension: Yes Hx Pacemaker: No Hx Asthma: No Hx COPD: Yes Hx Diabetes: No Hx Cancer: No Hx Gastrointestinal Problems: No - dysphagia, BPH, urinary retention Hx Dialysis: No Hx Neurological Problems: No Hx Cerebrovascular Accident: Yes - cerbral infarction Hx Seizures: Yes Hx Paralysis: Yes - right sided hemiplegia Hx Head Trauma: Yes - INTERCEREBRAL HEMORRHAGE Hx Speech Problem: Yes - APHASIA Hx Aphasia: Yes Hx Dysphasia: Yes Hx Weakness: Yes - Right sided weakness Review of Systems Eye: Denies: eye pain, blurred vision ENT: Denies: ear pain, nose congestion, throat swelling Respiratory: Reports: shortness of breath; Denies: cough Cardiovascular: Denies: chest pain, palpitations Gastrointestinal: Denies: abdominal pain, diarrhea, nausea, vomiting Musculoskeletal: Denies: back pain, joint pain Skin: Denies: rash Neurological: Denies: headache, numbness Endocrine: Denies: increased thirst, increased urine Hematologic/Lymphatic: Denies: easy bruising All Other Systems: limited - Secondary to patient condiyion Physical Exam Vital Signs Date Time Temp Pulse Resp B/P (MAP) Pulse Ox O2 Delivery O2 Flow Rate FiO2 05/30/18 04:26 101.5 145 30 140/100 100 Nasal Cannula 2.0 vitals with fever Sp02 EP Interpretation: abnormal General Appearance: moderate distress Head: normocephalic, atraumatic Eyes: bilateral eye PERRL, bilateral eye EOMI ENT: hearing grossly normal, normal pharynx Neck: full range of motion, supple, no meningismus Respiratory: chest non-tender, lungs clear, normal breath sounds Cardiovascular #1: regular rate, rhythm, no murmur Gastrointestinal: normal bowel sounds, non tender, no mass, no organomegaly, no bruit, non-distended, other - G-tube intact Genitourinary: other - Lynn Musculoskeletal: back normal Neurologic: alert Psychiatric: mood/affect normal Skin: warm/dry Procedures Critical Care Time Critical Care Time Critical care is mandated in this patient who presented with sepsis. Patient require my urgent intervention to attenuate the risks of or metabolic collapse which may lead to cardiovascular collapse and . Critical care time is 35 minutes excluding any reportable procedure. Critical care time included evaluation, multiple reevaluation, looking at old charts, interpreting laboratory and diagnostic data, discussing case with patient and family and consultants, and charting. Medical Decision Making Diagnostic Impression: Primary Impression: SEPSIS, UNSPECIFIED ORGANISM Additional Impressions: Healthcare-associated pneumonia UTI (urinary tract infection) Qualified Codes: N30.00 - Acute cystitis without hematuria Proteinuria Qualified Codes: R80.9 - Proteinuria, unspecified Prerenal azotemia HTN (hypertension) Qualified Codes: I10 - Essential (primary) hypertension ER Course Patient present with sepsis secondary to pneumonia and UTI. He grew out Morganella in the past. Sensitive to Zosyn and Levaquin. Antibiotics to cover for healthcare associated pneumonia. Blood pressure stable. Heart rate improved with IV fluid and Tylenol. Patient more alert. Patient will be admitted to telemetry. He is a DO NOT RESUSCITATE. Condition is guarded. I discussed the case with Dr. Mckeon who is covering for Dr. Oquendo. Lab Results Impression labs with elevated lactic and WBC EKG Diagnostic Results Rate: tachycardiac Rhythm: NSR ST Segments: other - Nonspecific changes Rhythm Strip Diag. Results Rhythm Strip Time: 04:54 EP Interpretation: yes Rate: 139 Rhythm: NSR, no PVC's, no ectopy Chest X-Ray Diagnostic Results Chest X-Ray Diagnostic Results : Chest X-Ray Ordered: Yes # of Views/Limited/Complete: 1 View Indication: Shortness of Breath EP Interpretation: Yes Interpretation: no effusion, no pneumothorax, other - rml infiltrate Impression: Other - RML infiltrate Electronically Signed by: Quinten Joyce MD Last Vital Signs Date Time Temp Pulse Resp B/P (MAP) Pulse Ox O2 Delivery O2 Flow Rate FiO2 05/30/18 04:26 101.5 145 30 140/100 100 Nasal Cannula 2.0 Status: improved Disposition: ADMITTED INPATIENT Condition: Critical Quinten Joyce MD May 30, 2018 04:54
[2018-05-30 05:14] LABS: APPEARANCE,URINE CLEAR; BILIRUBIN, URINE NEGATIVE (NEGATIVE); COLOR,URINE PALE YELLOW; GLUCOSE, URINE (UA) 4+ (NEGATIVE); KETONES,URINE NEGATIVE (NEGATIVE); NITRITE,URINE NEGATIVE (NEGATIVE); PH,URINE 8 (4.5-8.0); PROTEIN,URINE 3+ (NEGATIVE); UROBILINOGEN,URINE 1 MG/DL (0.0-1.0)
[2018-05-30 05:21] LABS: HEMATOCRIT 47.3 % (42.0-52.0); HEMOGLOBIN 16.1 G/DL (14.2-18.0); MEAN CORPUSCULAR VOLUME 86 FL (80-99); PLATELET COUNT 312 K/UL (150-450); RED BLOOD COUNT 5.49 M/UL (4.70-6.10); RED CELL DISTRIBUTION WIDTH 12.3 % (11.6-14.8); WHITE BLOOD COUNT 18.3 K/UL (4.8-10.8)
[2018-05-30 05:22] LABS: LEUKOCYTE ESTERASE ,URINE 1+ (NEGATIVE)
[2018-05-30 05:23] LABS: ALANINE AMINOTRANSFERASE 40 U/L (12-78); ALBUMIN 3.6 G/DL (3.4-5.0); ALBUMIN/GLOBULIN RATIO 0.6 (1.0-2.7); ALKALINE PHOSPHATASE 239 U/L (46-116); ANION GAP 12 mmol/L (5-15); ASPARTATE AMINO TRANSFERASE 40 U/L (15-37); BILIRUBIN,TOTAL 1.5 MG/DL (0.2-1.0); BLOOD UREA NITROGEN 21 mg/dL (7-18); CALCIUM 9.2 MG/DL (8.5-10.1); CARBON DIOXIDE 22 MMOL/L (21-32); CHLORIDE 100 MMOL/L (98-107); CKMB 1.5 NG/ML (0.0-3.6); CREATINE KINASE 111 U/L (26-308); CREATININE 1.2 MG/DL (0.55-1.30); POTASSIUM 4.5 MMOL/L (3.5-5.1); SODIUM 134 MMOL/L (136-145)
[2018-05-30 05:32] LABS: BILIRUBIN,DIRECT 0.3 MG/DL (0.0-0.3)
[2018-05-30] MEDS ORDERED: Piperacillin/Tazobactam 3.375 GM in NS 110 ML IVPB ONE (05:45)
[2018-05-30 08:00] VITALS: BP 145/100
--- NOTE | 2018-05-30 10:12 | Diagnostic Imaging Report ---
Indication: Shortness of breath Technique: One view of the chest Comparison: 06/09/2016 Findings: The heart is borderline enlarged. The aorta is tortuous and ectatic. No definite acute infiltrates, effusions, or congestion. Minimal interstitial prominence appears similar to the prior exam. There is considerable fracture deformity of multiple lower ribs bilaterally. There is also healed fracture deformity of the left clavicle. There are are extensive degenerative changes of the right shoulder. Impression: Borderline cardiomegaly No definite acute pulmonary process Ectatic aorta, aneurysm not excludable. Consider chest CT for further evaluation as clinically indicated
[2018-05-30] MEDS ORDERED: D5NS 1,000 ML IV SCH (11:31)
[2018-05-30] MEDS ORDERED: Acetaminophen 650mg/20.3ml GT PRN (11:45)
[2018-05-30] MEDS ORDERED: Norco 5mg/325mg tab GT PRN ×2 (11:45→16:18)
[2018-05-30] MEDS ORDERED: Fleet's Enema 133ml RECTAL PRN ×2 (11:45→16:18)
[2018-05-30] MEDS ORDERED: Albuterol ud Inhalation HHN PRN (12:15)
[2018-05-30] MEDS ORDERED: Sennosides 8.6mg tab GT SCH (12:30)
[2018-05-30] MEDS ORDERED: Sodium Chloride 1gm Tab GT SCH (13:00)
[2018-05-30] MEDS ORDERED: Miralax 17gm pkt GT SCH (13:00)
[2018-05-30] MEDS ORDERED: Phospha 250 Neutral tab GT SCH (13:00)
[2018-05-30] MEDS ORDERED: Gastrograffin 30ml RECTAL PRN ×2 (14:30→16:17)
[2018-05-30] MEDS ORDERED: Gastrograffin 30ml ORAL PRN ×2 (14:30→16:16)
[2018-05-30] MEDS ORDERED: Isovue-300 100ml vial INJ PRN ×2 (14:30→16:18)
--- NOTE | 2018-05-30 14:38 | History & Physical ---
History and Physical History & Physicial dict DNR disc w daughter move to [place] seriously ill Jose J Oquendo MD May 30, 2018 14:38
[2018-05-30] MEDS ORDERED: Vancomycin 500mg/D5W 110ml IVPB SCH ×2 (15:00)
[2018-05-30 15:15] VITALS: BP 111/80
--- NOTE | 2018-05-30 16:11 | GI Initial Consult Note ---
History of Present Illness General Date patient seen: May 30, 2018 Time patient seen: 16:10 Reason for Hospitalization: Dyspnea/Respdistress Referring physician: JOSE J AGUILAR Reason for Consultation: GT MALFUNCTION/ABDOMINAL DISTENTION Present Illness HPI This is a 63-year-old male with a history of CVA, G-tube, COPD who presents with chief complaint of shortness of breath. History is limited because patient is nonverbal. Per EMS, halfway called 911 because he was breathing fast. No cough or congestion. Questionable fever. Onset tonight. No meds given. GI consulted for reports of malfunctioning G-tube and abdominal distention. ROS is limited, patient was seen, awake alert currently on BiPAP. It was reported by the nursing staff that the G-tube has been unclogged and is now working properly. G-tube site assessed and noted to be 28 [place], clean dressing intact, minimal leakage noted. In addition, noted that the patient has severe abdominal distention, tympanic in all quadrants. Abdominal pelvic CT is pending. The patient's last upper endoscopy was performed in 2014, noted summary of findings include esophagitis, hiatal hernia, status post PEG placement. Presents today with leukocytosis and hyponatremia. No anemia noted. Unknown history of colonoscopy. Home Meds Active Scripts Fluconazole* (DIFLUCAN*) 100 Mg Tablet, 100 MG GT DAILY, #2 TAB Prov:Jose J Aguilar MD 06/12/16 [Vancomycin Hcl] 1 EA MISC No Conflict Check, 1 EA [facility] DAILY PRN for Per rx protocol, #10 Prov:Jose J Aguilar MD 02/19/15 Reported Medications Acyclovir (Zovirax) 400 Mg Tablet, 800 MG GT FIVE TIMES A DAY, TAB 06/05/17 Jptpfuixhujj-Zcab-Nziegyjq,Iso (ZOSYN 3.375 GM PRE MIX-BAG) 3.375 Gm/50 Ml Froz.piggy, 3.375 GM IVPB EVERY 8 HOURS for 3 Days, BAG 06/05/17 Tamsulosin Hcl (TAMSULOSIN HCL*) 0.4 Mg Cap.er.24h, 0.4 MG GT BEDTIME, CAP 06/01/17 [sodium chloride] No Conflict Check, 2 TAB GT DAILY 06/01/17 Finasteride* (PROSCAR*) 5 Mg Tablet, 5 MG GT DAILY, #30 TAB 0 Refills 06/01/17 Naph,Mb-Db/K Ph,Mbdb (PHOS-NAK PACKET) 1 Each Powd.pack, 1 EACH GT FOUR TIMES A DAY, PACK 06/01/17 Olopatadine HCl (Pazeo) 2.5 Ml Drops, 2.5 ML OP DAILY, ML 06/01/17 Calcium Carb & Cit/Vitamin D3 (CITRACAL + D ER TABLET) 1 Each Tablet.er, 1 EACH GT DAILY, TAB 06/01/17 Omeprazole (OMEPRAZOLE) 40 Mg Capsule., 40 MG ORAL DAILY, CAP 06/01/17 Na Phos,M-B/Na Phos,Di-Ba* (FLEET ENEMA*) 133 Ml Enema, 133 ML RECTAL DAILY PRN for Constipation, ML 0 Refills 06/01/17 Bisacodyl (DULCOLAX) 10 Mg Supp.rect, 10 MG RC PRN PRN for Constipation, SUPP 06/01/17 Tiotropium [place]* (SPIRIVA*) 18 Mcg Cap.w.dev, 1 PUFF INH DAILY, EA 06/05/16 Calcium Carbonate/Vitamin D3 (CALCIUM 500 + D TABLET) 1 Each Tablet, 1 EACH PO, TAB 06/05/16 Hydrocodone Bit/Acetaminophen 5-325* (NORCO 5-325 TABLET*) 1 Each Tablet, 1 TAB ORAL Q4H PRN for For Pain, TAB 06/05/16 Dexlansoprazole (Dexilant) 30 Mg Cap.bp, 30 MG ORAL DAILY, MG 06/05/16 Ondansetron* (ZOFRAN*) 4 Mg Tablet, 4 MG GT Q6H PRN for Nausea & Vomiting, TAB 03/02/15 Docusate Sodium (Docusate Sodium) 100 Mg/10 Ml Udc, 100 MG GT DAILY for Constipation, EA 03/02/15 Calcium Carbonate (Calcium) 500 Mg Tab, 500 MG GT DAILY PRN for supplement, #30 TAB 0 Refills 03/02/15 Sennosides (SENNA) 8.6 Mg Capsule, 8.6 MG GT HS 02/17/15 Polyethylene Glycol 3350* (MIRALAX*) 17 Gm Powd.pack, QD 02/17/15 Trazodone Hcl* (DESYREL*) 50 Mg Tablet, 12.5 MG GT QHS 04/27/13 Albuterol Sulfate* (PROAIR HFA*) 8.5 Gm Hfa.aer.ad, 1 PUFF INH Q6H, #1 INH 0 Refills 04/27/13 Pantoprazole Sodium (Protonix) 40 Mg Suspdr.pkt, 40 MG GT DAILY, #30 PKT 11/25/12 Multivitamins Liq* (MULTIVITAMIN LIQ*) 5 Ml Udc, 5 ML GT DAILY, ML 07/08/12 Ondansetron* (ZOFRAN*) 4 Mg/2 Ml Vial, 4 MG IM Q6HR PRN 07/08/12 [Glucerna 1.2 ] No Conflict Check 05/29/12 Bisacodyl (BISCOLAX) 10 Mg Supp.rect, 10 MG GT DAILY PRN 05/29/12 Acetaminophen* (TYLENOL*) 650 Mg/20.3 Ml Oral.susp, 650 MG GT Q6HR PRN 05/29/12 [Align Probiotic ] No Conflict Check, 1 CAP GT DAILY 05/29/12 Metoprolol Tartrate* (METOPROLOL TARTRATE*) 50 Mg Tablet, 100 MG GT TID, #30 TAB 05/29/12 Enalapril Maleate* (ENALAPRIL MALEATE*) 10 Mg Tablet, 20 MG GT BID 05/29/12 Phosphorus #1 (K-PHOS NEUTRAL TABLET) 250 Mg Tablet, 750 MG GT QID 05/29/12 Calcium Carbonate/Vitamin D3 (OS-IFTIKHAR 500+D CAPLET) 1 Each Tablet, 1 EACH GT 05/29/12 Amlodipine Besylate (Norvasc) 5 Mg Tab, 10 MG GT DAILY, TAB 05/29/12 Docusate Sodium (Docusate Sodium) 250 Mg Cap, 250 MG GT BID, #10 CAP 05/29/12 Med list reviewed/reconciled: Yes Allergies: Coded Allergies: NO KNOWN ALLERGIES (Unverified Allergy, Unknown, 03/02/15) Patient History Limited by: medical condition History Provided By: Medical Record PMH Narrative Past Medical History: see triage record, old chart reviewed, HTN, COPD Past Surgical History: other Pertinent Family History: none Social History: Denies: smoking Immunizations: other Reviewed Nursing Documentation: PMH: Agreed; PSxH: Agreed Nursing Documentation-PMH Hx Cardiac Problems: Yes - atherosclerotic heart disease Hx Hypertension: Yes Hx Pacemaker: No Hx Asthma: No Hx COPD: Yes Hx Diabetes: No Hx Cancer: No Hx Gastrointestinal Problems: No - dysphagia, BPH, urinary retention Hx Dialysis: No Hx Neurological Problems: No Hx Cerebrovascular Accident: Yes - cerbral infarction Hx Seizures: Yes Hx Paralysis: Yes - right sided hemiplegia Hx Head Trauma: Yes - INTERCEREBRAL HEMORRHAGE Hx Speech Problem: Yes - APHASIA Hx Aphasia: Yes Hx Dysphasia: Yes Hx Weakness: Yes - Right sided weakness Social History: Denies: smoking, alcohol use, drug use, other Review of Systems All Other Systems: limited Physical Exam Vital Signs Date Time Temp Pulse Resp B/P (MAP) Pulse Ox O2 Delivery O2 Flow Rate FiO2 05/30/18 04:26 101.5 145 30 140/100 100 Nasal Cannula 2.0 05/30/18 14:00 40 Sp02 EP Interpretation: reviewed Labs Laboratory Tests Test 05/30/18 04:30 05/30/18 04:43 05/30/18 06:55 05/30/18 13:55 White Blood Count 18.3 K/UL (4.8-10.8) H Red Blood Count 5.49 M/UL (4.70-6.10) Hemoglobin 16.1 G/DL (14.2-18.0) Hematocrit 47.3 % (42.0-52.0) Mean Corpuscular Volume 86 FL (80-99) Mean Corpuscular Hemoglobin 29.3 PG (27.0-31.0) Mean Corpuscular Hemoglobin Concent 34.0 G/DL (32.0-36.0) Red Cell Distribution Width 12.3 % (11.6-14.8) Platelet Count 312 K/UL (150-450) Mean Platelet Volume 6.4 FL (6.5-10.1) L Neutrophils (%) (Auto) % (45.0-75.0) Lymphocytes (%) (Auto) % (20.0-45.0) Monocytes (%) (Auto) % (1.0-10.0) Eosinophils (%) (Auto) % (0.0-3.0) Basophils (%) (Auto) % (0.0-2.0) Prothrombin Time 10.5 SEC (9.30-11.50) Prothromb Time International Ratio 1.0 (0.9-1.1) Activated Partial Thromboplast Time 34 SEC (23-33) H Sodium Level 134 MMOL/L (136-145) L Potassium Level 4.5 MMOL/L (3.5-5.1) Chloride Level 100 MMOL/L (98-107) Carbon Dioxide Level 22 MMOL/L (21-32) Anion Gap 12 mmol/L (5-15) Blood Urea Nitrogen 21 mg/dL (7-18) H Creatinine 1.2 MG/DL (0.55-1.30) Estimat Glomerular Filtration Rate > 60 mL/min (>60) Glucose Level 161 MG/DL (74-106) H Lactic Acid Level 3.90 mmol/L (0.4-2.0) H 1.80 mmol/L (0.66-2.22) Calcium Level 9.2 MG/DL (8.5-10.1) Total Bilirubin 1.5 MG/DL (0.2-1.0) H Direct Bilirubin 0.3 MG/DL (0.0-0.3) Aspartate Amino Transf (AST/SGOT) 40 U/L (15-37) H Alanine Aminotransferase (ALT/SGPT) 40 U/L (12-78) Alkaline Phosphatase 239 U/L (46-116) H Total Creatine Kinase 111 U/L (26-308) Creatine Kinase MB 1.5 NG/ML (0.0-3.6) Creatine Kinase MB Relative Index 1.3 Troponin I 0.000 ng/mL (0.000-0.056) Total Protein 9.5 G/DL (6.4-8.2) H Albumin 3.6 G/DL (3.4-5.0) Globulin 5.9 g/dL Albumin/Globulin Ratio 0.6 (1.0-2.7) L Urine Color Pale yellow Urine Appearance Clear Urine pH 8 (4.5-8.0) Urine Specific [place] 1.015 (1.005-1.035) Urine Protein 3+ (NEGATIVE) H Urine Glucose (UA) 4+ (NEGATIVE) H Urine Ketones Negative (NEGATIVE) Urine Blood 2+ (NEGATIVE) H Urine Nitrite Negative (NEGATIVE) Urine Bilirubin Negative (NEGATIVE) Urine Urobilinogen 1 MG/DL (0.0-1.0) H Urine Leukocyte Esterase 1+ (NEGATIVE) H Urine RBC 5-10 /HPF (0 - 0) H Urine WBC 5-10 /HPF (0 - 0) H Urine Squamous Epithelial Cells None /LPF (NONE/OCC) Urine Bacteria Moderate /HPF (NONE) H Arterial Blood pH 7.276 (7.350-7.450) Arterial Blood Partial Pressure CO2 36.6 mmHg (35.0-45.0) Arterial Blood Partial Pressure O2 132.7 mmHg (75.0-100.0) H Arterial Blood HCO3 16.7 mmol/L (22.0-26.0) *L Arterial Blood Oxygen Saturation 98.7 % (95-100) Arterial Blood Base Excess -9.3 (-2-2) *L Ja Test Positive General Appearance: well appearing, alert, mild distress, other - Patient currently on a BiPAP Head: normocephalic EENT: normal ENT inspection Neck: supple Respiratory: normal breath sounds Cardiovascular: normal rate Gastrointestinal: gt - 28 [place] NGT noted Neurologic: alert Current Medications Current Medications Medications (Trade) Dose Ordered Sig/Kehinde Route PRN Reason Start Time Stop Time Status Last Admin Dose Admin Acetaminophen (Tylenol) 650 mg Q6H PRN GT Mild Pain/Temp > 100.5 05/30/18 11:45 06/29/18 11:44 Acetaminophen/ Hydrocodone Bitart ([place] 5/325) 1 tab Q4H PRN GT PAIN 4-10 05/30/18 11:45 06/06/18 11:44 Albuterol Sulfate (Proventil) 2.5 mg Q6H PRN HHN Shortness of Breath 05/30/18 12:15 06/04/18 12:14 Bisacodyl (Dulcolax) 10 mg DAILYPRN PRN RECTAL Constipation 05/30/18 11:45 06/29/18 11:44 Calcium Carbonate (Tums) 500 mg DAILY GT 05/31/18 09:00 06/30/18 08:59 Dextrose/Sodium Chloride 1,000 ml @ 100 mls/hr Q10H IV 05/30/18 11:31 06/29/18 11:30 05/30/18 12:51 Diatrizoate Meglum/ Diatrizoate Sod (Gastrografin) 30 ml NOW PRN ORAL Radiology Procedure 05/30/18 14:30 06/01/18 14:29 Diatrizoate Meglum/ Diatrizoate Sod (Gastrografin) 60 ml NOW PRN RECTAL Radiology Procedure 05/30/18 14:30 06/01/18 14:28 Docusate Sodium (Colace) 100 mg DAILY GT 05/31/18 09:00 06/30/18 08:59 Enalapril Maleate (Vasotec) 20 mg Q12HR GT 05/30/18 21:00 06/29/18 20:59 Finasteride (Proscar) 5 mg DAILY ORAL 05/30/18 11:45 06/29/18 11:44 05/30/18 12:50 Iopamidol (Isovue-300 100ml) 100 ml NOW PRN INJ Radiology Procedure 05/30/18 14:30 06/01/18 14:29 Ketotifen Fumarate (Zatidor) 1 drop Q12HR BOTH EYES 05/30/18 21:00 06/29/18 20:59 Lansoprazole (Prevacid) 30 mg DAILY GT 05/31/18 09:00 06/30/18 08:59 Metoprolol Tartrate (Lopressor) 100 mg Q8HR GT 05/30/18 13:00 06/29/18 12:59 05/30/18 13:32 Ondansetron HCl (Zofran) 4 mg Q6H PRN GT Nausea & Vomiting 05/30/18 11:45 06/29/18 11:44 Polyethylene Glycol (Miralax) 17 gm DAILY GT 05/30/18 13:00 06/29/18 12:59 05/30/18 13:31 Sennosides (Senokot) 8.6 mg QHS GT 05/30/18 12:30 06/29/18 12:29 05/30/18 12:50 Sodium Chloride (NaCl) 2 gm DAILY GT 05/30/18 13:00 06/29/18 12:59 05/30/18 13:32 Sodium Phosphate (Fleet's Sodium Phosl Enema) 133 ml DAILYPRN PRN RECTAL Constipation 05/30/18 11:45 06/29/18 11:44 05/30/18 13:35 Trazodone HCl (Desyrel) 12.5 mg QHS GT 05/30/18 21:00 06/29/18 20:59 Vancomycin HCl (Vanco rx to dose) 1 ea DAILY PRN MISC Per rx protocol 05/30/18 11:45 06/29/18 11:44 Vancomycin HCl 500 mg/Dextrose 110 ml @ 110 mls/hr Q12H IVPB 05/30/18 15:00 06/04/18 14:59 05/30/18 15:26 GI: Plan Problems: (1) SBO (small bowel obstruction) (2) Ileus (3) Malfunction of gastrostomy tube (4) G-tube replacement (5) Abdominal distension (6) Constipated (7) PEG (percutaneous endoscopic gastrostomy) adjustment/replacement/removal Plan Differential diagnosis noted above Maintain n.p.o. with IV fluids Follow-up with the abdominal pelvis CT Note that the gastrostomy tube at this time is working properly, The gastrostomy tube at times could be kinked at the base of the retention ring which would make it appeared to be clogged. We will follow with additional recs post imaging Antibiotics Prevacid GT Bowel regimen Follow-up labs Discussed with Dr. Parra. Thank you for this patient referral, we will follow. Raudel Joyce NP May 30, 2018 16:11
--- NOTE | 2018-05-30 16:21 | Diagnostic Imaging Report ---
Indication: Shortness of breath Technique: One view of the chest Comparison: 05/30/2018 Findings: Slightly improved inspiration. The heart size is upper limits normal. The aorta is tortuous and ectatic. Upper mediastinum is unremarkable. Findings are unchanged Impression: Configuration. Otherwise little change coordinator 10 hours
--- NOTE | 2018-05-30 16:24 | Infectious Diseases Prog Note ---
Assessment/Plan Assessment/Plan Full consult dictated: sepsis, sirs, fevers, leukocytosis possible sbo, peritonitis, g-tube infection possible aspiration pna/hcap ? uti pmh noted allergies - nkda zosyn and vancomycin check cultures, labs, ct scan, chest x-ray d/w Dr. Oquendo thank you Subjective Allergies: Coded Allergies: NO KNOWN ALLERGIES (Unverified Allergy, Unknown, 03/02/15) Objective Vital Signs Last 24 Hour Vital Signs Date Time Temp Pulse Resp B/P (MAP) Pulse Ox O2 Delivery O2 Flow Rate FiO2 05/30/18 16:14 109 05/30/18 14:00 121 33 99 Facial 40 05/30/18 13:32 126 137/89 05/30/18 08:00 130 05/30/18 08:00 98.2 20 145/100 (115) 98 05/30/18 07:41 100.8 125 24 138/95 100 Nasal Cannula 2.0 05/30/18 06:24 120 24 Nasal Cannula 2.0 05/30/18 05:21 101.0 05/30/18 04:35 102.0 120 24 134/95 100 Nasal Cannula 2.0 05/30/18 04:26 101.5 145 30 140/100 100 Nasal Cannula 2.0 Height (Feet): 5 Height (Inches): 4.00 Weight (Pounds): 160 Microbiology Date/Time Source Procedure Growth Status 05/30/18 05:28 Nasal Nares Influenza Types A,B Antigen (MICAELA) - Final Complete 05/30/18 05:00 Rectum Received Laboratory Tests Test 05/30/18 04:30 05/30/18 04:43 05/30/18 06:55 05/30/18 13:55 White Blood Count 18.3 K/UL (4.8-10.8) H Red Blood Count 5.49 M/UL (4.70-6.10) Hemoglobin 16.1 G/DL (14.2-18.0) Hematocrit 47.3 % (42.0-52.0) Mean Corpuscular Volume 86 FL (80-99) Mean Corpuscular Hemoglobin 29.3 PG (27.0-31.0) Mean Corpuscular Hemoglobin Concent 34.0 G/DL (32.0-36.0) Red Cell Distribution Width 12.3 % (11.6-14.8) Platelet Count 312 K/UL (150-450) Mean Platelet Volume 6.4 FL (6.5-10.1) L Neutrophils (%) (Auto) % (45.0-75.0) Lymphocytes (%) (Auto) % (20.0-45.0) Monocytes (%) (Auto) % (1.0-10.0) Eosinophils (%) (Auto) % (0.0-3.0) Basophils (%) (Auto) % (0.0-2.0) Prothrombin Time 10.5 SEC (9.30-11.50) Prothromb Time International Ratio 1.0 (0.9-1.1) Activated Partial Thromboplast Time 34 SEC (23-33) H Sodium Level 134 MMOL/L (136-145) L Potassium Level 4.5 MMOL/L (3.5-5.1) Chloride Level 100 MMOL/L (98-107) Carbon Dioxide Level 22 MMOL/L (21-32) Anion Gap 12 mmol/L (5-15) Blood Urea Nitrogen 21 mg/dL (7-18) H Creatinine 1.2 MG/DL (0.55-1.30) Estimat Glomerular Filtration Rate > 60 mL/min (>60) Glucose Level 161 MG/DL (74-106) H Lactic Acid Level 3.90 mmol/L (0.4-2.0) H 1.80 mmol/L (0.66-2.22) Calcium Level 9.2 MG/DL (8.5-10.1) Total Bilirubin 1.5 MG/DL (0.2-1.0) H Direct Bilirubin 0.3 MG/DL (0.0-0.3) Aspartate Amino Transf (AST/SGOT) 40 U/L (15-37) H Alanine Aminotransferase (ALT/SGPT) 40 U/L (12-78) Alkaline Phosphatase 239 U/L (46-116) H Total Creatine Kinase 111 U/L (26-308) Creatine Kinase MB 1.5 NG/ML (0.0-3.6) Creatine Kinase MB Relative Index 1.3 Troponin I 0.000 ng/mL (0.000-0.056) Total Protein 9.5 G/DL (6.4-8.2) H Albumin 3.6 G/DL (3.4-5.0) Globulin 5.9 g/dL Albumin/Globulin Ratio 0.6 (1.0-2.7) L Urine Color Pale yellow Urine Appearance Clear Urine pH 8 (4.5-8.0) Urine Specific [place] 1.015 (1.005-1.035) Urine Protein 3+ (NEGATIVE) H Urine Glucose (UA) 4+ (NEGATIVE) H Urine Ketones Negative (NEGATIVE) Urine Blood 2+ (NEGATIVE) H Urine Nitrite Negative (NEGATIVE) Urine Bilirubin Negative (NEGATIVE) Urine Urobilinogen 1 MG/DL (0.0-1.0) H Urine Leukocyte Esterase 1+ (NEGATIVE) H Urine RBC 5-10 /HPF (0 - 0) H Urine WBC 5-10 /HPF (0 - 0) H Urine Squamous Epithelial Cells None /LPF (NONE/OCC) Urine Bacteria Moderate /HPF (NONE) H Arterial Blood pH 7.276 (7.350-7.450) Arterial Blood Partial Pressure CO2 36.6 mmHg (35.0-45.0) Arterial Blood Partial Pressure O2 132.7 mmHg (75.0-100.0) H Arterial Blood HCO3 16.7 mmol/L (22.0-26.0) *L Arterial Blood Oxygen Saturation 98.7 % (95-100) Arterial Blood Base Excess -9.3 (-2-2) *L Ja Test Positive Current Medications Medications (Trade) Dose Ordered Sig/Kehinde Route PRN Reason Start Time Stop Time Status Last Admin Dose Admin Acetaminophen (Tylenol) 650 mg Q6H PRN GT Mild Pain/Temp > 100.5 05/30/18 16:16 06/29/18 16:15 Acetaminophen/ Hydrocodone Bitart ([place] 5/325) 1 tab Q4H PRN GT PAIN 4-10 05/30/18 16:18 06/06/18 16:17 Albuterol Sulfate (Proventil) 2.5 mg Q6H PRN HHN Shortness of Breath 05/30/18 16:16 06/04/18 16:15 Bisacodyl (Dulcolax) 10 mg DAILYPRN PRN RECTAL Constipation 05/30/18 16:16 06/29/18 16:15 Calcium Carbonate (Tums) 500 mg DAILY GT 05/31/18 09:00 06/30/18 08:59 Dextrose/Sodium Chloride 1,000 ml @ 100 mls/hr Q10H IV 05/30/18 16:16 06/29/18 16:15 Diatrizoate Meglum/ Diatrizoate Sod (Gastrografin) 30 ml NOW PRN ORAL Radiology Procedure 05/30/18 16:16 05/31/18 23:59 Diatrizoate Meglum/ Diatrizoate Sod (Gastrografin) 60 ml NOW PRN RECTAL Radiology Procedure 05/30/18 16:17 05/31/18 23:59 Docusate Sodium (Colace) 100 mg DAILY GT 05/31/18 09:00 06/30/18 08:59 Enalapril Maleate (Vasotec) 20 mg Q12HR GT 05/30/18 21:00 06/29/18 20:59 Finasteride (Proscar) 5 mg DAILY ORAL 05/31/18 09:00 06/29/18 11:44 Iopamidol (Isovue-300 100ml) 100 ml NOW PRN INJ Radiology Procedure 05/30/18 16:18 05/31/18 23:59 Ketotifen Fumarate (Zatidor) 1 drop Q12HR BOTH EYES 05/30/18 21:00 06/29/18 20:59 Lansoprazole (Prevacid) 30 mg DAILY GT 05/31/18 09:00 06/30/18 08:59 Metoprolol Tartrate (Lopressor) 100 mg Q8HR GT 05/30/18 22:00 06/29/18 12:59 Ondansetron HCl (Zofran) 4 mg Q6H PRN GT Nausea & Vomiting 05/30/18 16:19 06/29/18 16:18 Polyethylene Glycol (Miralax) 17 gm DAILY GT 05/31/18 09:00 06/29/18 12:59 Sennosides (Senokot) 8.6 mg QHS GT 05/30/18 21:00 06/29/18 12:29 Sodium Chloride (NaCl) 2 gm DAILY GT 05/31/18 09:00 06/29/18 12:59 Sodium Phosphate (Fleet's Sodium Phosl Enema) 133 ml DAILYPRN PRN RECTAL Constipation 05/30/18 16:18 06/29/18 16:17 Trazodone HCl (Desyrel) 12.5 mg QHS GT 05/30/18 21:00 06/29/18 20:59 Vancomycin HCl (Vanco rx to dose) 1 ea DAILY PRN MISC Per rx protocol 05/31/18 09:00 06/29/18 11:44 Vancomycin HCl 500 mg/Dextrose 110 ml @ 110 mls/hr Q12H IVPB 05/31/18 03:00 06/04/18 14:59 Rodriguez Hawthorne MD May 30, 2018 16:24
[2018-05-30] MEDS: D5NS 1,000 ML IV SCH (16:52)
[2018-05-30 17:24] LABS: HEMATOCRIT 40.3 % (42.0-52.0); HEMOGLOBIN 13.7 G/DL (14.2-18.0); MEAN CORPUSCULAR VOLUME 87 FL (80-99); PLATELET COUNT 219 K/UL (150-450); RED BLOOD COUNT 4.66 M/UL (4.70-6.10); RED CELL DISTRIBUTION WIDTH 12.5 % (11.6-14.8)
[2018-05-30 17:39] LABS: ANION GAP 10 mmol/L (5-15); BLOOD UREA NITROGEN 18 mg/dL (7-18); CALCIUM 9.3 MG/DL (8.5-10.1); CARBON DIOXIDE 21 MMOL/L (21-32); CHLORIDE 107 MMOL/L (98-107); CREATININE 1.1 MG/DL (0.55-1.30); POTASSIUM 4.1 MMOL/L (3.5-5.1); SODIUM 138 MMOL/L (136-145)
[2018-05-30 17:47] LABS: ALANINE AMINOTRANSFERASE 31 U/L (12-78); ALBUMIN 2.9 G/DL (3.4-5.0); ALBUMIN/GLOBULIN RATIO 0.6 (1.0-2.7); ALKALINE PHOSPHATASE 171 U/L (46-116); ASPARTATE AMINO TRANSFERASE 23 U/L (15-37); BILIRUBIN,TOTAL 1.5 MG/DL (0.2-1.0)
[2018-05-30 17:48] LABS: BILIRUBIN,DIRECT 0.5 MG/DL (0.0-0.3)
[2018-05-30] MEDS ORDERED: Docusate 250mg cap ORAL SCH (18:00)
[2018-05-30 18:38] LABS: APPEARANCE,URINE SLIGHTLY CLOUDY; BILIRUBIN, URINE NEGATIVE (NEGATIVE); COLOR,URINE AMBER; GLUCOSE, URINE (UA) 1+ (NEGATIVE); KETONES,URINE NEGATIVE (NEGATIVE); LEUKOCYTE ESTERASE ,URINE 3+ (NEGATIVE); NITRITE,URINE NEGATIVE (NEGATIVE); PH,URINE 8 (4.5-8.0); PROTEIN,URINE 3+ (NEGATIVE); UROBILINOGEN,URINE 1 MG/DL (0.0-1.0)
[2018-05-30 20:00] VITALS: BP 125/80
[2018-05-30] MEDS: Sennosides 8.6mg tab GT SCH (20:10)
[2018-05-30] MEDS: TraZODone HCl 25 mg tablet GT SCH (20:25)
[2018-05-30] MEDS: Ketotifen Fumarate 0.035% 5ml BOTH EYES SCH (20:27)
[2018-05-30] MEDS ORDERED: Ketotifen Fumarate 0.035% 5ml BOTH EYES SCH (21:00)
[2018-05-30] MEDS ORDERED: TraZODone HCl 25 mg tablet GT SCH (21:00)
[2018-05-30] MEDS ORDERED: Tamsulosin 0.4mg cap ORAL SCH (21:00)
--- NOTE | 2018-05-30 22:45 | Consultation ---
DATE OF CONSULTATION: 05/30/2018 CARDIOLOGY CONSULTATION CONSULTING PHYSICIAN: Fuentes Gutierres M.D. REQUESTING PHYSICIAN: Jose J Oquendo M.D. REASON FOR CONSULTATION: Tachycardia. HISTORY OF PRESENT ILLNESS: This is a 63-year-old male with CVA, right hemiparesis, dysphagia, and NG-tube, as well as chronic obstructive pulmonary disease, presented to the hospital with severe shortness of breath. He was admitted late last evening with diagnosis of pneumonia. Today, he became increasingly tachypneic, tachycardic, congested, and had a drop in the blood pressure readings noted. PAST MEDICAL HISTORY: 1. Atherosclerotic cardiovascular disease. 2. Hypertension. 3. Chronic obstructive pulmonary disease. 4. Hemorrhagic stroke with right-sided hemiplegia, aphasia, and dysphagia. 5. G-tube. 6. Prostatic hypertrophy. 7. Urinary retention. MEDICATIONS: Prior to admission, reviewed and reconciled. ALLERGIES: None known. SOCIAL HISTORY: No record of prior smoking, alcohol, or substance abuse. FAMILY HISTORY: Unremarkable. REVIEW OF SYSTEMS: Cannot be reliably obtained at this time. PHYSICAL EXAMINATION: GENERAL: The patient is awake, but withdrawn. He is responsive. VITAL SIGNS: Blood pressure 145/100 to 111/82, heart rate 130, and respiratory rate 20. Monitored rhythm, sinus tachycardia. He is afebrile. T-max early this morning 102. LUNGS: Bilateral breath sounds. Scattered rhonchi. HEART: Regular rhythm. Rapid rate. Normal S1, S2. ABDOMEN: Soft. G-tube intact. EXTREMITIES: No edema. NEUROLOGIC: Right hemiparesis with contractures. LABORATORY DATA: White count 22 and hemoglobin 13.7. Sodium 138, potassium 4.1, bicarb 21, BUN 18, creatinine 1.1, and glucose 140. Lactic acid early this morning 3.9, now 1.8. Albumin 2.9. ABG, pH 7.27, pCO2 36, and pO2 132. Urinalysis 5 to 10 white cells. Chest x-ray is notable for ectatic aorta, no acute process, mild cardiomegaly. IMPRESSION: 1. Sepsis. 2. Secondary sinus tachycardia. 3. Metabolic encephalopathy. 4. Lactic acidosis. 5. Probable aspiration pneumonia. 6. Possible small bowel obstruction and G-tube infection. 7. Moderate protein-calorie malnutrition. 8. Acute respiratory acidosis. 9. Cerebrovascular disease with complications as outlined. 10. The patient is high risk. 11. Advanced directives for DNR is appropriate. PLAN: 1. Plan of care includes antimicrobials, volume support, and respiratory hygiene with BiPAP as needed. 2. We will await culture results. 3. DVT and stress ulcer prophylaxis. 4. Transfer to higher level of care. 5. No need for pressors at this time. 6. No role for antiarrhythmics. Fuentes Gutierres M.D. DR: TIMOTHY JOB#: [id number] CC:
[2018-05-31] VITALS: BP 124/95
--- NOTE | 2018-05-31 | Consultation ---
DATE OF CONSULTATION: 05/30/2018 INFECTIOUS DISEASES CONSULT: CONSULTING PHYSICIAN: Rodriguez Hawthorne M.D. ATTENDING PHYSICIAN: Jose J Oquendo M.D. REFERRING PHYSICIAN: Jose J Oquendo M.D. REASON FOR CONSULTATION: Sepsis, leukocytosis, fever, SIRS criteria. Possible bowel infection such as peritonitis or small bowel obstruction. Possible G-tube infection. Possible UTI. Possible pneumonia. CHIEF COMPLAINT: The patient's chief complaint coming to the hospital is sepsis, fever, leukocytosis, and shortness of breath. HISTORY OF PRESENT ILLNESS: This is a 63-year-old male, who has multiple medical problems who comes in to [facility] and was noted that the patient had leukocytosis, fevers likely septic with SIRS criteria. Temperature as high as 102 and white count was over 18,000, it was 18.3 to be specific. The patient now is acutely short of breath on BiPAP. He is being transferred to the step-down unit. Case was discussed with Dr. Oquendo. The patient has significantly distended abdomen and it is unclear if he has a bowel obstruction or signs of intra-abdominal infection such as peritonitis. The patient has G-tube. In discussing with the nursing staff, he had drainage from his G-tube site earlier that looked mucousy. The patient is currently on vancomycin and Zosyn. He was given a dose of Levaquin. Cultures are pending at this time. Chest x-ray initially was negative. CT scan abdomen and pelvis has been noted. UA was mildly positive with 5 to 10 white cells, 1+ leukocyte esterase. The patient will be continued on vancomycin and Zosyn. MAR was noted. Orders were noted. Notes were reviewed. Case was discussed with Dr. Oquendo and the RN. REVIEW OF SYSTEMS: CONSTITUTIONAL: He opens his eyes, but is responsive. He has BiPAP and Lynn. I do not believe he has a central line. Otherwise, he is responsive. He came in with fevers. Currently not on pressors. He is short of breath. General fatigue, weakness, and fevers. No mention of night sweats or weight loss. HEAD AND NECK: No mention of head pain or neck pain. CARDIAC: No chest pain. GASTROINTESTINAL: Distended abdomen and abdominal discomfort. He has a G-tube. GENITOURINARY: He has a Lynn. PULMONARY: Congestion and short of breath on BiPAP. No secretions seen. SKIN: No rash. NEUROLOGIC: No seizures. Review of systems is otherwise limited in this patient who is in distress on a BiPAP. PAST MEDICAL HISTORY: The patient's past medical history includes the following. The patient has G-tube and dysphagia. He has hyponatremia. The other past medical history includes history of cerebral infarction, dysphagia, G-tube, essential hypertension, history of atherosclerotic heart disease, history of COPD, history of BPH, history of urinary retention. No history of diabetes. No history of cancer mentioned. ALLERGIES: No known drug allergies. No antibiotic allergies. SOCIAL HISTORY: Negative for smoking, alcohol, or drug abuse per the records. FAMILY HISTORY: Per the records, no mention of exposure to tuberculosis or cancer. MEDICATIONS: Upon the MAR, the patient is on following medications. He is on TUMS or calcium carbonate. He is on docusate. He is on pravastatin, enalapril, and trazodone. He is on vancomycin and Zosyn. He is on Lopressor or metoprolol. He is on polyethylene glycol or MiraLAX. He is on Senokot. Antibiotics, vancomycin and Zosyn. Vancomycin per pharmacy dosing. Albuterol. He is on acetaminophen, bisacodyl, finasteride, hydrocodone, Zofran, and IV fluids. Outside medications were noted and reconciled. PHYSICAL EXAMINATION: VITAL SIGNS: Temperature maximum 102, pulse rate currently is 121, respiratory rate 33, and saturation 99% FiO2 40%. He is on BiPAP. He is on facial mass non-rebreather. GENERAL: He is responsive, but he is short of breath and in distress. HEAD AND NECK: Oral exam, no thrush. Eye exam, no icterus. Normocephalic. Neck is supple. No JVD. He is on BiPAP and breathing mask. HEART: Regular. No obvious gallop or murmur. Tachycardic. No friction rub. ABDOMEN: Significantly distended tense. Decreased bowel sounds. Possible tenderness, but there is discomfort. LUNGS: Bilateral rhonchi, rales, and crackles. SKIN: No obvious rash. I reviewed the G-tube site. There is no drainage per the RN. There is mucus drainage previously. MUSCULOSKELETAL: No effusion. Legs are without cellulitis. PERIPHERAL VASCULAR: No cyanosis or gangrene. GENITOURINARY: Has a Lynn. Urine is slightly cloudy. LINES: Line sites without phlebitis. NEUROLOGIC: Generalized weakness, responsive. LABORATORY AND DIAGNOSTIC DATA: As follows: White count 18.3 and hemoglobin 16.1. Sodium is 134, potassium 4.5, and creatinine 1.2. LFTs were noted. Urinalysis had 1+ leukocyte esterase and 5 to 10 white blood cells. Cultures are pending. Influenza screen was negative. Imaging studies, chest x-ray initially shows no acute disease noted on review. CT scan, followup chest x-ray, and cultures are pending at this time. Follow up laboratories ordered. ASSESSMENT AND PLAN: 1. The patient is certainly septic. The patient has sepsis, fevers, and leukocytosis. SIRS criteria positive with high respiratory rate and heart rate, shortness of breath, and tachycardia. The patient has distended and tense abdomen and certainly could have processes such as small bowel obstruction and peritonitis. He also could have a G-tube infection. The patient has possible UTI. The patient is short of breath and high risk for aspiration and healthcare-acquired pneumonia. Continue vancomycin and Zosyn for broad-spectrum antibiotic coverage. Vancomycin for MRSA coverage and Zosyn for gram-negative anaerobic coverage. Continue vancomycin and Zosyn. Check cultures, labs, CT scan of abdomen and pelvis, chest x-ray, G-tube culture, urine and blood culture, and sputum culture. Continue vancomycin and Zosyn pending workup. Consider also GI evaluation. On review of CT scan, there is no evidence of polyps, infections, peritonitis, or bowel obstruction. Monitor chest x-ray to see if there is any pneumonia. 2. The patient has history of dysphagia and G-tube. 3. Hypernatremia. 4. Shortness of breath requiring breathing treatments, BiPAP, and non-rebreather. 5. The patient has history of CVA and aspiration risk. 6. Dysphagia. G-tube. 7. Essential hypertension. Blood pressure treatment per Dr. Oquendo. 8. Atherosclerotic heart disease and angina pectoris history. 9. COPD. 10. BPH. 11. History of urinary retention. 12. No history diabetes. 13. No known allergies. 14. Social history is negative. 15. Family history is noncontributory. 16. MAR was noted. 17. Case was discussed with RN. 18. The patient is now in the step-down unit care. 19. Case was discussed with Dr. Oquendo. 20. Continue treatment per primary consultants. 21. Notes and records were noted. 22. Skin care protocol. 23. Orders were entered. Rodriguez Hawthorne M.D. DR: NELLY JOB#: [id number] CC:
--- NOTE | 2018-05-31 02:00 | History and Physical Report ---
DATE OF ADMISSION: 05/30/2018 CHIEF COMPLAINT: Short of breath. HISTORY OF PRESENT ILLNESS: This 63-year-old man was transferred from a snf by paramedics to the emergency department, here because of rapid breathing. He is aphasic and can provide no additional history. He was found to have sepsis with severe leukocytosis, but the chest x-ray and urine appear reasonably clear. The abdomen was reported by the emergency department not to be distended, but now it is quite distended and the gastric tube is no longer functioning. PAST MEDICAL HISTORY: He was hospitalized a year ago with similar findings of abdominal distention and shortness of breath. He has a history of fecal impaction and has a G-tube in place. He has a history of cerebral hemorrhage and right hemiparesis with aphasia, dysphagia, coronary disease, hypertension, COPD, and hyponatremia. ALLERGIES: None to medications. MEDICATIONS: Reviewed. CODE STATUS: DNR according to my discussion today with the daughter. A POLST is on file. PHYSICAL EXAMINATION: GENERAL: The patient is awake and regards me and seems to remember me. He is well developed and well nourished. VITAL SIGNS: Currently show a heart rate of 160; blood pressure 137/89; temperature was up to 102 when he arrived, but now is down to normal; respirations 24, now on BiPAP; saturation is 98%. HEENT: The head is normocephalic. NECK: No jugular venous distention. CHEST: Clear. CARDIAC: Rhythm is rapid and regular. ABDOMEN: Soft and nontender. It is markedly distended. A gastric tube is in place. There is no evidence of ascites. EXTREMITIES: No clubbing, cyanosis, or edema. NEUROLOGIC: Aphasic, right hemiparesis. LABORATORY STUDIES: The white count is 18,300 and hemoglobin is 16. Chemistry shows sodium 134, potassium was normal, creatinine 1.2, and glucose 161. Bilirubin is mildly elevated. Liver enzymes are mildly elevated. Total protein is high. Lactic acid was elevated and repeat was normal. Urinalysis shows 5 to 10 white cells with glucose and protein. Blood gas was done this afternoon at 1355 hours showing pH 7.27, pCO2 36, pO2 132, bicarbonate 16, and base excess -9. A chest x-ray was reported as showing no acute disease with cardiomegaly and ectatic aorta. IMPRESSION: 1. Sepsis with fever and leukocytosis, etiology unclear. 2. Abdominal distention, possible abdominal sepsis. 3. Acute respiratory failure, requiring BiPAP. 4. History of stroke with right hemiparesis and aphasia. 5. Gastric tube dysfunction/malfunction. 6. Hypertension. 7. DNR. PLAN: The patient will be transferred to [facility]. We will continue intravenous fluids and antibiotics. GI and cardiac consultations have been requested. The patient is seriously ill and I have informed the daughter who is aware and confirm the DNR status. Jose J Oquendo M.D. DR: EV JOB#: [id number] CC: [email or web address]
[2018-05-31] MEDS: Vancomycin 500 MG in D5W 110 ML IVPB SCH ×2 (03:00→18:22)
[2018-05-31] MEDS: D5NS 1,000 ML IV SCH ×3 (03:01→21:59)
[2018-05-31 04:00] VITALS: BP 125/72
[2018-05-31 05:17] LABS: HEMATOCRIT 41.7 % (42.0-52.0); HEMOGLOBIN 14.1 G/DL (14.2-18.0); MEAN CORPUSCULAR VOLUME 86 FL (80-99); PLATELET COUNT 194 K/UL (150-450); RED BLOOD COUNT 4.83 M/UL (4.70-6.10); RED CELL DISTRIBUTION WIDTH 12.5 % (11.6-14.8); WHITE BLOOD COUNT 13.2 K/UL (4.8-10.8)
[2018-05-31 06:17] LABS: ALANINE AMINOTRANSFERASE 28 U/L (12-78); ALBUMIN 2.9 G/DL (3.4-5.0); ALBUMIN/GLOBULIN RATIO 0.6 (1.0-2.7); ALKALINE PHOSPHATASE 179 U/L (46-116); ANION GAP 13 mmol/L (5-15); ASPARTATE AMINO TRANSFERASE 21 U/L (15-37); BILIRUBIN,TOTAL 1.4 MG/DL (0.2-1.0); BLOOD UREA NITROGEN 17 mg/dL (7-18); CALCIUM 9.3 MG/DL (8.5-10.1); CARBON DIOXIDE 19 MMOL/L (21-32); CHLORIDE 105 MMOL/L (98-107); CREATININE 1.1 MG/DL (0.55-1.30); POTASSIUM 3.6 MMOL/L (3.5-5.1); SODIUM 137 MMOL/L (136-145)
[2018-05-31 06:41] LABS: BILIRUBIN,DIRECT 0.6 MG/DL (0.0-0.3)
[2018-05-31 08:00] VITALS: BP 110/72
--- NOTE | 2018-05-31 08:27 | Pulmonology Progress Note ---
Assessment/Plan Assessment/Plan 1. Sepsis with fever and leukocytosis 2. Abdominal distention, possible abdominal sepsis. 3. Acute respiratory failure, requiring BiPAP. 4. History of stroke with right hemiparesis and aphasia. 5. Gastric tube dysfunction/malfunction. 6. Hypertension. 7. DNR. 8. Possible pneumonia off BiPAP but still SOB and wheezing temps lower HR 106 ST more comfortable repeat CXR, CT abd pdg labs better continue abx HHN Subjective ROS Limited/Unobtainable: Yes Constitutional: Reports: fever Respiratory: Reports: shortness of breath Allergies: Coded Allergies: NO KNOWN ALLERGIES (Unverified Allergy, Unknown, 03/02/15) Objective Last 24 Hour Vital Signs Date Time Temp Pulse Resp B/P (MAP) Pulse Ox O2 Delivery O2 Flow Rate FiO2 05/31/18 06:23 98 130/82 05/31/18 04:00 Bi-pap 05/31/18 04:00 Bi-pap 05/31/18 04:00 97.4 95 20 125/72 (89) 100 05/31/18 04:00 116 05/31/18 00:58 94 26 100 Facial 40 05/31/18 00:00 88 05/31/18 00:00 Bi-pap 05/31/18 00:00 98.4 91 25 124/95 (105) 100 05/30/18 23:15 81 25 99 Facial 40 05/30/18 21:44 86 121/88 05/30/18 20:42 95 27 99 Facial 40 05/30/18 20:11 124/89 05/30/18 20:00 96 05/30/18 20:00 98.6 86 20 125/80 (95) 100 05/30/18 20:00 Bi-pap 05/30/18 19:05 104 26 99 Facial 40 05/30/18 19:04 104 25 Bi-pap 40 05/30/18 18:00 Bi-pap 05/30/18 17:00 101 20 99 05/30/18 16:14 109 05/30/18 15:15 98.2 108 22 111/80 (90) 99 05/30/18 14:00 121 33 99 Facial 40 05/30/18 13:32 126 137/89 05/30/18 09:00 Nasal Cannula 3.0 05/30/18 08:32 Room Air 3.0 Intake and Output 05/30/18 05/31/18 18:59 06:59 Intake Total 173.33 ml 1260.000 ml Output Total 1750 ml 1000 ml Balance -1576.67 ml 260.000 ml Intake Free Water 60 ml 150 ml IV Total 113.33 ml 1110.000 ml Output Urine Total 1750 ml 1000 ml # Bowel Movements 2 2 General Appearance: other - mild SOB HEENT: normocephalic Respiratory/Chest: expiratory wheezing Cardiovascular: regular rhythm Abdomen: soft, non tender, distended Microbiology Date/Time Source Procedure Growth Status 05/30/18 04:30 Blood Blood Culture - Preliminary NO GROWTH AFTER 24 HOURS Resulted 05/30/18 04:15 Blood Blood Culture - Preliminary NO GROWTH AFTER 24 HOURS Resulted 05/30/18 05:28 Nasal Nares Influenza Types A,B Antigen (MICAELA) - Final Complete 05/30/18 05:00 Rectum Received Laboratory Tests 05/30/18 13:55: Arterial Blood pH 7.276L, Arterial Blood Partial Pressure CO2 36.6, Arterial Blood Partial Pressure O2 132.7H, Arterial Blood HCO3 16.7*L, Arterial Blood Oxygen Saturation 98.7, Arterial Blood Base Excess -9.3*L, Ja Test Positive 05/30/18 17:00: White Blood Count 22.0H, Red Blood Count 4.66L, Hemoglobin 13.7L, Hematocrit 40.3L, Mean Corpuscular Volume 87, Mean Corpuscular Hemoglobin 29.4, Mean Corpuscular Hemoglobin Concent 33.9, Red Cell Distribution Width 12.5, Platelet Count 219, Mean Platelet Volume 6.7, Neutrophils (%) (Auto) , Lymphocytes (%) ( Auto) , Monocytes (%) (Auto) , Eosinophils (%) (Auto) , Basophils (%) (Auto) , Differential Total Cells Counted 100, Neutrophils % (Manual) 65, Lymphocytes % ( Manual) 3L, Monocytes % (Manual) 4, Eosinophils % (Manual) 0, Basophils % ( Manual) 0, Band Neutrophils 28H, Platelet Estimate Adequate, Platelet Morphology Normal, Red Blood Cell Morphology Normal, Sodium Level 138, Potassium Level 4.1, Chloride Level 107, Carbon Dioxide Level 21, Anion Gap 10, Blood Urea Nitrogen 18, Creatinine 1.1, Estimat Glomerular Filtration Rate > 60 , Glucose Level 140H, Calcium Level 9.3, Total Bilirubin 1.5H, Direct Bilirubin 0.5H, Aspartate Amino Transf (AST/SGOT) 23, Alanine Aminotransferase (ALT/SGPT) 31, Alkaline Phosphatase 171H, Total Protein 7.6, Albumin 2.9L, Globulin 4.7, Albumin/Globulin Ratio 0.6L 05/30/18 18:20: Urine Color Josseline, Urine Appearance Slightly cloudy, Urine pH 8, Urine Specific [place] 1.010, Urine Protein 3+H, Urine Glucose (UA) 1+H, Urine Ketones Negative , Urine Blood 4+H, Urine Nitrite Negative, Urine Bilirubin Negative, Urine Ictotest Negative, Urine Urobilinogen 1H, Urine Leukocyte Esterase 3+H, Urine RBC 10-15H, Urine WBC TntcH, Urine Squamous Epithelial Cells None, Urine Bacteria Few 05/31/18 03:20: White Blood Count 13.2H, Red Blood Count 4.83, Hemoglobin 14.1L, Hematocrit 41.7L, Mean Corpuscular Volume 86, Mean Corpuscular Hemoglobin 29.3, Mean Corpuscular Hemoglobin Concent 33.9, Red Cell Distribution Width 12.5, Platelet Count 194, Mean Platelet Volume 7.2, Neutrophils (%) (Auto) , Lymphocytes (%) ( Auto) , Monocytes (%) (Auto) , Eosinophils (%) (Auto) , Basophils (%) (Auto) , Sodium Level 137, Potassium Level 3.6, Chloride Level 105, Carbon Dioxide Level 19L, Anion Gap 13, Blood Urea Nitrogen 17, Creatinine 1.1, Estimat Glomerular Filtration Rate > 60, Glucose Level 105, Calcium Level 9.3, Total Bilirubin 1.4H , Direct Bilirubin 0.6H, Aspartate Amino Transf (AST/SGOT) 21, Alanine Aminotransferase (ALT/SGPT) 28, Alkaline Phosphatase 179H, Total Protein 7.7, Albumin 2.9L, Globulin 4.8, Albumin/Globulin Ratio 0.6L Current Medications Medications (Trade) Dose Ordered Sig/Kehinde Route PRN Reason Start Time Stop Time Status Last Admin Dose Admin Acetaminophen (Tylenol) 650 mg Q6H PRN GT Mild Pain/Temp > 100.5 05/30/18 16:16 06/29/18 16:15 Acetaminophen/ Hydrocodone Bitart ([place] 5/325) 1 tab Q4H PRN GT PAIN 4-10 05/30/18 16:18 06/06/18 16:17 Albuterol Sulfate (Proventil) 2.5 mg Q6H PRN HHN Shortness of Breath 05/30/18 16:16 06/04/18 16:15 Bisacodyl (Dulcolax) 10 mg DAILYPRN PRN RECTAL Constipation 05/30/18 16:16 06/29/18 16:15 Calcium Carbonate (Tums) 500 mg DAILY GT 05/31/18 09:00 06/30/18 08:59 Dextrose/Sodium Chloride 1,000 ml @ 100 mls/hr Q10H IV 05/30/18 16:16 06/29/18 16:15 05/31/18 03:01 Diatrizoate Meglum/ Diatrizoate Sod (Gastrografin) 30 ml NOW PRN ORAL Radiology Procedure 05/30/18 16:16 05/31/18 23:59 Diatrizoate Meglum/ Diatrizoate Sod (Gastrografin) 60 ml NOW PRN RECTAL Radiology Procedure 05/30/18 16:17 05/31/18 23:59 Docusate Sodium (Colace) 100 mg DAILY GT 05/31/18 09:00 06/30/18 08:59 Enalapril Maleate (Vasotec) 20 mg Q12HR GT 05/30/18 21:00 06/29/18 20:59 05/30/18 20:11 Finasteride (Proscar) 5 mg DAILY ORAL 05/31/18 09:00 06/29/18 11:44 Iopamidol (Isovue-300 100ml) 100 ml NOW PRN INJ Radiology Procedure 05/30/18 16:18 05/31/18 23:59 Ketotifen Fumarate (Zatidor) 1 drop Q12HR BOTH EYES 05/30/18 21:00 06/29/18 20:59 05/30/18 20:27 Lansoprazole (Prevacid) 30 mg DAILY GT 05/31/18 09:00 06/30/18 08:59 Metoprolol Tartrate (Lopressor) 100 mg Q8HR GT 05/30/18 22:00 06/29/18 12:59 05/31/18 06:23 Ondansetron HCl (Zofran) 4 mg Q6H PRN GT Nausea & Vomiting 05/30/18 16:19 06/29/18 16:18 Piperacillin Sod/ Tazobactam Sod 3.375 gm/Dextrose 100 ml @ 25 mls/hr EVERY 8 HOURS IVPB 05/30/18 22:00 06/04/18 21:59 05/31/18 06:23 Polyethylene Glycol (Miralax) 17 gm DAILY GT 05/31/18 09:00 06/29/18 12:59 Sennosides (Senokot) 8.6 mg QHS GT 05/30/18 21:00 06/29/18 12:29 05/30/18 20:10 Sodium Chloride (NaCl) 2 gm DAILY GT 05/31/18 09:00 06/29/18 12:59 Sodium Phosphate (Fleet's Sodium Phosl Enema) 133 ml DAILYPRN PRN RECTAL Constipation 05/30/18 16:18 06/29/18 16:17 Trazodone HCl (Desyrel) 12.5 mg QHS GT 05/30/18 21:00 06/29/18 20:59 05/30/18 20:25 Vancomycin HCl (Vanco rx to dose) 1 ea DAILY PRN MISC Per rx protocol 05/31/18 09:00 06/29/18 11:44 Vancomycin HCl 500 mg/Dextrose 110 ml @ 110 mls/hr Q12H IVPB 05/31/18 03:00 06/04/18 14:59 05/31/18 03:00 Jose J Oquendo MD May 31, 2018 08:27
[2018-05-31] MEDS: Levalbuterol Inh UD 1.25mg/0.5ml HHN SCH ×3 (08:30→19:45)
[2018-05-31] MEDS ORDERED: Fluconazole 100mg tab GT SCH (09:00)
[2018-05-31] MEDS ORDERED: Tums 500mg GT SCH (09:00)
[2018-05-31] MEDS ORDERED: Docusate 100mg/10ml Liq GT SCH (09:00)
[2018-05-31] MEDS ORDERED: Levalbuterol Inh UD 1.25mg/0.5ml HHN SCH (09:00)
[2018-05-31] MEDS: Albuterol ud Inhalation HHN PRN (09:10)
[2018-05-31] MEDS: Tums 500mg GT SCH (09:54)
[2018-05-31] MEDS: Docusate 100mg/10ml Liq GT SCH (09:54)
[2018-05-31] MEDS: Miralax 17gm pkt GT SCH (09:54)
[2018-05-31] MEDS: Sodium Chloride 1gm Tab GT SCH (09:56)
[2018-05-31] MEDS: Ketotifen Fumarate 0.035% 5ml BOTH EYES SCH ×2 (10:03→20:28)
[2018-05-31] MEDS ORDERED: Amikacin Rx to dose MISC PRN (11:45)
[2018-05-31 12:00] VITALS: BP 109/75
[2018-05-31] MEDS ORDERED: Gastrograffin 30ml ORAL PRN (12:30)
--- NOTE | 2018-05-31 12:34 | GI Progress Note ---
Assessment/Plan Problems: (1) Malfunction of gastrostomy tube ICD Codes: K94.23 - Gastrostomy malfunction SNOMED: 257106267 (2) Ileus ICD Codes: K56.7 - Ileus, unspecified SNOMED: 293690364 (3) SBO (small bowel obstruction) ICD Codes: K56.609 - Unspecified intestinal obstruction, unspecified as to partial versus complete obstruction SNOMED: 255027104 (4) Constipated ICD Codes: K59.00 - Constipation, unspecified SNOMED: 55432079 (5) Malfunction of gastrostomy tube ICD Codes: K94.23 - Gastrostomy malfunction SNOMED: 072733829 (6) G-tube replacement (7) PEG (percutaneous endoscopic gastrostomy) adjustment/replacement/removal ICD Codes: Z43.1 - Encounter for attention to gastrostomy SNOMED: 458549899, 299030401 (8) Abdominal distension ICD Codes: R14.0 - Abdominal distension (gaseous) SNOMED: 38915259 Status: progressing Status Narrative Discussed with Dr. Parra. Assessment/Plan Differential diagnosis noted above GT changed to 24 [place], KUB for confirmation. Reviewed abdominal pelvis CT >> No bowel obstruction free fluid or free air identified. start GTFs at low rate to goal turn patient q2 hours simethicone prn GT site care daily / prn >> zinc oxide daily Antibiotics Prevacid GT Bowel regimen Follow-up labs The patient was seen and examined at bedside and all new and available data was reviewed in the patients chart. I agree with the above findings, impression and plan. (Patient seen earlier today. Signature stamp does not reflect patient encounter time.). - Homar Parra MD Subjective Subjective limited Objective Last 24 Hour Vital Signs Date Time Temp Pulse Resp B/P (MAP) Pulse Ox O2 Delivery O2 Flow Rate FiO2 05/31/18 09:55 110/72 05/31/18 09:11 102 20 100 Nasal Cannula 3.0 32 05/31/18 09:00 102 22 100 Nasal Cannula 3.0 32 05/31/18 09:00 Nasal Cannula 3.0 32 05/31/18 09:00 100 22 100 Nasal Cannula 3.0 32 05/31/18 09:00 36 05/31/18 08:00 Nasal Cannula 2.0 05/31/18 08:00 98.1 103 20 110/72 (85) 96 05/31/18 07:50 103 05/31/18 06:23 98 130/82 05/31/18 04:00 Bi-pap 05/31/18 04:00 Bi-pap 05/31/18 04:00 97.4 95 20 125/72 (89) 100 05/31/18 04:00 116 05/31/18 00:58 94 26 100 Facial 40 05/31/18 00:00 88 05/31/18 00:00 Bi-pap 05/31/18 00:00 98.4 91 25 124/95 (105) 100 05/30/18 23:15 81 25 99 Facial 40 05/30/18 21:44 86 121/88 05/30/18 20:42 95 27 99 Facial 40 05/30/18 20:11 124/89 05/30/18 20:00 96 05/30/18 20:00 98.6 86 20 125/80 (95) 100 05/30/18 20:00 Bi-pap 05/30/18 19:05 104 26 99 Facial 40 05/30/18 19:04 104 25 Bi-pap 40 05/30/18 18:00 Bi-pap 05/30/18 17:00 101 20 99 05/30/18 16:14 109 05/30/18 15:15 98.2 108 22 111/80 (90) 99 05/30/18 14:00 121 33 99 Facial 40 05/30/18 13:32 126 137/89 Intake and Output 05/30/18 05/31/18 19:00 07:00 Intake Total 273.33 ml 1260.000 ml Output Total 1750 ml 1000 ml Balance -1476.67 ml 260.000 ml Intake Free Water 60 ml 150 ml IV Total 213.33 ml 1110.000 ml Output Urine Total 1750 ml 1000 ml # Bowel Movements 2 2 Laboratory Tests Test 05/30/18 13:55 05/30/18 17:00 05/30/18 18:20 05/31/18 03:20 Arterial Blood pH 7.276 (7.350-7.450) Arterial Blood Partial Pressure CO2 36.6 mmHg (35.0-45.0) Arterial Blood Partial Pressure O2 132.7 mmHg (75.0-100.0) H Arterial Blood HCO3 16.7 mmol/L (22.0-26.0) *L Arterial Blood Oxygen Saturation 98.7 % (95-100) Arterial Blood Base Excess -9.3 (-2-2) *L Ja Test Positive White Blood Count 22.0 K/UL (4.8-10.8) H 13.2 K/UL (4.8-10.8) H Red Blood Count 4.66 M/UL (4.70-6.10) L 4.83 M/UL (4.70-6.10) Hemoglobin 13.7 G/DL (14.2-18.0) L 14.1 G/DL (14.2-18.0) L Hematocrit 40.3 % (42.0-52.0) L 41.7 % (42.0-52.0) L Mean Corpuscular Volume 87 FL (80-99) 86 FL (80-99) Mean Corpuscular Hemoglobin 29.4 PG (27.0-31.0) 29.3 PG (27.0-31.0) Mean Corpuscular Hemoglobin Concent 33.9 G/DL (32.0-36.0) 33.9 G/DL (32.0-36.0) Red Cell Distribution Width 12.5 % (11.6-14.8) 12.5 % (11.6-14.8) Platelet Count 219 K/UL (150-450) 194 K/UL (150-450) Mean Platelet Volume 6.7 FL (6.5-10.1) 7.2 FL (6.5-10.1) Neutrophils (%) (Auto) % (45.0-75.0) % (45.0-75.0) Lymphocytes (%) (Auto) % (20.0-45.0) % (20.0-45.0) Monocytes (%) (Auto) % (1.0-10.0) % (1.0-10.0) Eosinophils (%) (Auto) % (0.0-3.0) % (0.0-3.0) Basophils (%) (Auto) % (0.0-2.0) % (0.0-2.0) Differential Total Cells Counted 100 Neutrophils % (Manual) 65 % (45-75) Lymphocytes % (Manual) 3 % (20-45) L Monocytes % (Manual) 4 % (1-10) Eosinophils % (Manual) 0 % (0-3) Basophils % (Manual) 0 % (0-2) Band Neutrophils 28 % (0-8) H Platelet Estimate Adequate Platelet Morphology Normal Red Blood Cell Morphology Normal Sodium Level 138 MMOL/L (136-145) 137 MMOL/L (136-145) Potassium Level 4.1 MMOL/L (3.5-5.1) 3.6 MMOL/L (3.5-5.1) Chloride Level 107 MMOL/L (98-107) 105 MMOL/L (98-107) Carbon Dioxide Level 21 MMOL/L (21-32) 19 MMOL/L (21-32) L Anion Gap 10 mmol/L (5-15) 13 mmol/L (5-15) Blood Urea Nitrogen 18 mg/dL (7-18) 17 mg/dL (7-18) Creatinine 1.1 MG/DL (0.55-1.30) 1.1 MG/DL (0.55-1.30) Estimat Glomerular Filtration Rate > 60 mL/min (>60) > 60 mL/min (>60) Glucose Level 140 MG/DL (74-106) H 105 MG/DL (74-106) Calcium Level 9.3 MG/DL (8.5-10.1) 9.3 MG/DL (8.5-10.1) Total Bilirubin 1.5 MG/DL (0.2-1.0) H 1.4 MG/DL (0.2-1.0) H Direct Bilirubin 0.5 MG/DL (0.0-0.3) H 0.6 MG/DL (0.0-0.3) H Aspartate Amino Transf (AST/SGOT) 23 U/L (15-37) 21 U/L (15-37) Alanine Aminotransferase (ALT/SGPT) 31 U/L (12-78) 28 U/L (12-78) Alkaline Phosphatase 171 U/L (46-116) H 179 U/L (46-116) H Total Protein 7.6 G/DL (6.4-8.2) 7.7 G/DL (6.4-8.2) Albumin 2.9 G/DL (3.4-5.0) L 2.9 G/DL (3.4-5.0) L Globulin 4.7 g/dL 4.8 g/dL Albumin/Globulin Ratio 0.6 (1.0-2.7) L 0.6 (1.0-2.7) L Urine Color Josseline Urine Appearance Slightly cloudy Urine pH 8 (4.5-8.0) Urine Specific [place] 1.010 (1.005-1.035) Urine Protein 3+ (NEGATIVE) H Urine Glucose (UA) 1+ (NEGATIVE) H Urine Ketones Negative (NEGATIVE) Urine Blood 4+ (NEGATIVE) H Urine Nitrite Negative (NEGATIVE) Urine Bilirubin Negative (NEGATIVE) Urine Ictotest Negative (NEGATIVE) Urine Urobilinogen 1 MG/DL (0.0-1.0) H Urine Leukocyte Esterase 3+ (NEGATIVE) H Urine RBC 10-15 /HPF (0 - 0) H Urine WBC Tntc /HPF (0 - 0) H Urine Squamous Epithelial Cells None /LPF (NONE/OCC) Urine Bacteria Few /HPF (NONE) Microbiology Date/Time Source Procedure Growth Status 05/30/18 18:20 Indwelling Cath Urine Culture - Preliminary Resulted Height (Feet): 5 Height (Inches): 4.00 Weight (Pounds): 160 General Appearance: WD/WN, no apparent distress, alert Cardiovascular: normal rate Respiratory/Chest: normal breath sounds, no respiratory distress Abdominal Exam: normal bowel sounds, non tender, soft, GT site - changed today Extremities: non-tender Raudel Joyce NP May 31, 2018 12:34
--- NOTE | 2018-05-31 13:47 | Diagnostic Imaging Report ---
Indication: Abdominal pain Technique: Continuous helical transaxial imaging of the abdomen and pelvis was obtained from the lung bases to the pubic symphysis during intravenous contrast administration. Coronal 2-D reformats were also obtained. Study obtained in a Siemens sensation [address] Automatic Exposure Control was utilized. Total Dose length Product (DLP): 743.[address] Dose Index Volume (CTDIvol): 16.82 mGy Comparison: None Findings: There is posterior basal atelectasis. Generalized cardiomegaly demonstrated. There is mild right hydroureteronephrosis secondary to a small stone in the distal right ureter measuring 5 mm. The bladder is notable for Lynn catheter. There is some wall thickening noted. Cystitis not excluded.. In addition there is a nonobstructing 4 mm stone in the central portion of the right kidney. The left kidney is notable for a exophytic 7.2 cm cyst. The gallbladder is unremarkable. There is a gastrostomy present which appears to be in good position. No bowel obstruction free fluid or free air identified. IMPRESSION: Mild right hydroureteronephrosis secondary to a 5 mm obstructing stone in the distal right ureter. Additional 4 mm nonobstructive stone in the right kidney. Left renal cyst Gastrostomy Basilar atelectasis and/or scarring Hiatal hernia. Lynn catheter. Thickening of the wall the urinary bladder noted. Cystitis not excluded. [facility] has communicated the preliminary results to the Emergency Department. Their findings are largely concordant with this report. The CT scanner at [facility] is accredited by the [employer] and the scans are performed using dose optimization techniques as appropriate to a performed exam including Automatic Exposure control.
--- NOTE | 2018-05-31 13:48 | Diagnostic Imaging Report ---
Indication: Dyspnea Comparison: 05/30/2018 A single view chest radiograph was obtained. Findings: Interstitial edema and prominent pulmonary vascularity demonstrated. Heart is enlarged. Lung volumes are low. The bones are osteopenic. There are erosive changes involving the humeral head on the right suspected. These correlate clinically. IMPRESSION: Moderate CHF. Right humeral head erosions. Further evaluation recommended
[2018-05-31] MEDS ORDERED: Zinc Oxide Oint 2oz TOPIC SCH (14:00)
[2018-05-31] MEDS ORDERED: Simethicone 80mg tab GT SCH (14:15)
--- NOTE | 2018-05-31 14:35 | Diagnostic Imaging Report ---
Indication: Gastrostomy placement Comparison: None Single view of the abdomen obtained Findings: There is contrast within the stomach and duodenum. No extravasation is seen. The gastrostomy is not well seen however and position is uncertain. IMPRESSION: Contrast in the stomach and the first portion of duodenum. No leak identified. The gastrostomy catheter is not well seen.
[2018-05-31 15:36] VITALS: BP 125/95
[2018-05-31] MEDS: Amikacin 1,000 MG in NS 110 ML IV SCH (15:42)
[2018-05-31 20:00] VITALS: BP 133/88
[2018-05-31] MEDS: TraZODone HCl 25 mg tablet GT SCH (20:26)
[2018-05-31] MEDS: Acetaminophen 650mg/20.3ml GT PRN (20:27)
[2018-05-31] MEDS: Zinc Oxide Oint 2oz TOPIC SCH (20:29)
[2018-05-31] MEDS: Sennosides 8.6mg tab GT SCH (20:29)
[2018-06-01] VITALS (13 sets, daily range): BP systolic 116–140; BP diastolic 74–106
[2018-06-01] MEDS: Levalbuterol Inh UD 1.25mg/0.5ml HHN SCH ×4 (01:15→19:09)
--- NOTE | 2018-06-01 02:00 | Consultation ---
DATE OF CONSULTATION: 05/31/2018 CONSULTING PHYSICIAN: Freedom Paris M.D. REFERRING PHYSICIAN: Jose J Oquendo M.D. REASON FOR CONSULTATION: Evaluation of ureteral calculus and hydronephrosis. HISTORY OF PRESENT ILLNESS: This is a 63-year-old male who was transferred from the long term because of tachypnea. He had clinical findings consistent with sepsis including leukocytosis. He did have fevers and on a CT scan, there was mention of stone in his right ureter with mild hydronephrosis. Urology evaluation requested. The patient is aphasic. I am not able to get any history from him. I am not sure if he has any flank pain. He currently has a Lynn catheter indwelling. PAST MEDICAL HISTORY: Significant for above. History of cerebral hemorrhage, hemiparesis, aphasia, coronary artery disease, hypertension, COPD, and BPH. PAST SURGICAL HISTORY: Unknown. CURRENT MEDICATIONS: Here in the hospital, the patient is on zinc, amikacin, Gastrografin, Tums, Colace, Proscar, Prevacid, MiraLAX, Xopenex, vancomycin, Zosyn, Vasotec, , Senokot, trazodone, hydrocodone, Tylenol, Proventil, and Dulcolax. ALLERGIES: No known drug allergies. SOCIAL HISTORY: Resident of a long term. REVIEW OF SYSTEMS: Unable to obtain. FAMILY HISTORY: Unable to obtain. PHYSICAL EXAMINATION: GENERAL: Elderly male. VITAL SIGNS: Temperature 98.6, blood pressure 125/80, pulse 96, and respirations 20. HEENT: Normocephalic. ABDOMEN: Soft. No CVA tenderness. Lynn is in place. Urine is oracio. LABORATORY DATA: UA on admission showed 5 to 10 rbcs, 5 to 10 wbcs, 3+ protein, and moderate bacteria. He did have a urine culture, which is growing gram-negative bacilli. He did have a blood culture, and by report, the culture is also positive for gram-negative bacilli. His white count is 13.2, hemoglobin 14.1, and platelets 194. BUN 17, creatinine 1.1, and potassium 3.6. DIAGNOSTIC IMAGING STUDIES: The patient had a CT scan of the abdomen and pelvis. This is from yesterday. There was mention of mild right-sided hydronephrosis secondary to a 5 mm obstructing stone in the distal right ureter. There was also mention of 4 mm nonobstructive stone in the right kidney as well as a renal cyst. IMPRESSION: 1. UTI with sepsis. 2. Right renal and ureteral calculi. 3. Hydronephrosis. 4. Hematuria. 5. Urinary retention. 6. BPH. 7. Neurogenic bladder. 8. Proteinuria. 9. Renal cyst. PLAN AND DISCUSSION: Again, the patient does have findings consistent with sepsis and it appears that the source is urinary. He does have a stone in the ureter; however, the obstruction is mild. He appears to be improving clinically. However, again he does have both blood cultures and urine cultures that are positive. I did discuss the case with Dr. Oquendo and Dr. Hawthorne and the patient may need to have placement of ureteral stent to decompress the kidney to help resolve his sepsis and infection. He also will need to have treatment of the stone in the ureter, which potentially needs to be done once the infection has cleared. I will discuss the findings with the patient's daughter and go from there. Thank you for this consultation. Freedom Paris M.D. DR: HUNTER JOB#: [id number] CC:
[2018-06-01] MEDS: Vancomycin 500 MG in D5W 110 ML IVPB SCH ×3 (02:18→13:38)
[2018-06-01 04:10] LABS: HEMATOCRIT 40.8 % (42.0-52.0); HEMOGLOBIN 14.1 G/DL (14.2-18.0); MEAN CORPUSCULAR VOLUME 87 FL (80-99); PLATELET COUNT 168 K/UL (150-450); RED BLOOD COUNT 4.71 M/UL (4.70-6.10); RED CELL DISTRIBUTION WIDTH 12.7 % (11.6-14.8); WHITE BLOOD COUNT 15.4 K/UL (4.8-10.8)
[2018-06-01 04:29] LABS: ALANINE AMINOTRANSFERASE 23 U/L (12-78); ALBUMIN 2.7 G/DL (3.4-5.0); ALBUMIN/GLOBULIN RATIO 0.6 (1.0-2.7); ALKALINE PHOSPHATASE 149 U/L (46-116); ANION GAP 10 mmol/L (5-15); ASPARTATE AMINO TRANSFERASE 18 U/L (15-37); BILIRUBIN,TOTAL 0.9 MG/DL (0.2-1.0); BLOOD UREA NITROGEN 15 mg/dL (7-18); CARBON DIOXIDE 22 MMOL/L (21-32); CHLORIDE 109 MMOL/L (98-107); POTASSIUM 3.2 MMOL/L (3.5-5.1); SODIUM 141 MMOL/L (136-145)
[2018-06-01] MEDS: Acetaminophen 650mg/20.3ml GT PRN (05:58)
[2018-06-01] MEDS: D5NS 1,000 ML IV SCH ×2 (08:31→18:38)
[2018-06-01] MEDS ORDERED: Iothalamate Meglumine 60% 30ML INJ ONE (08:43)
[2018-06-01] MEDS: Docusate 100mg/10ml Liq GT SCH ×2 (09:00→13:05)
[2018-06-01] MEDS ORDERED: NS Irrig 1000ml ONE (09:00)
[2018-06-01] MEDS: Tums 500mg GT SCH ×2 (09:00→13:08)
[2018-06-01] MEDS: Ketotifen Fumarate 0.035% 5ml BOTH EYES SCH ×2 (09:00→20:53)
[2018-06-01] MEDS ORDERED: Sterile Water Irrig 1000ml IRRIG ONE ×2 (09:00→15:44)
[2018-06-01] MEDS ORDERED: LR 1000ml ONE (09:00)
[2018-06-01] MEDS: Sodium Chloride 1gm Tab GT SCH ×2 (09:00→13:07)
[2018-06-01] MEDS ORDERED: Sterile Water For Irrig 2000ml IRRIG ONE ×2 (09:00→10:30)
[2018-06-01] MEDS: Miralax 17gm pkt GT SCH ×2 (09:00→13:05)
[2018-06-01] MEDS ORDERED: LR 1000ml 1,000 ML IVLG SCH (09:18)
--- NOTE | 2018-06-01 09:23 | Anethesia Preoperative Eval ---
Anesthesia Pre-op PMH/ROS General Date of Evaluation: Jun 01, 2018 Time of Evaluation: 09:11 Anesthesiologist: Nica ASA Score: ASA 4 - Emergency Mallampati Score Class I : Soft palate, uvula, fauces, pillars visible Class II: Soft palate, uvula, fauces visible Class III: Soft palate, base of uvula visible Class IV: Only hard plate visible Mallampati Classification: Class II Surgeon: Raina Diagnosis: Abd Pain Surgical Procedure: Cystoscopy, Stent Anesthesia History: none Family History: no anesthesia problems Allergies: Coded Allergies: NO KNOWN ALLERGIES (Unverified Allergy, Unknown, 03/02/15) Medications: see eMAR Patient NPO?: Yes Past Medical History Cardiovascular: Reports: HTN, CAD, arrhythmia - Afib Pulmonary: Reports: COPD, other - old Trach Gastrointestinal/Genitourinary: Reports: CRI Neurologic/Psychiatric: Reports: CVA, depression/anxiety, other - Aphasia, Seizures Musculoskeletal/Integumentary: Reports: other - Contractures Anesthesia Pre-op Phys. Exam Physician Exam Last Vital Signs Date Time Temp Pulse Resp B/P (MAP) Pulse Ox O2 Delivery O2 Flow Rate FiO2 06/01/18 06:28 98.6 06/01/18 05:58 110 134/96 06/01/18 04:39 27 100 Facial 40 06/01/18 04:00 2.0 Constitutional: NAD Neurologic: CN 2-12 intact Cardiovascular: RRR Respiratory: CTA Gastrointestinal: S/NT/ND Airway Exam Mallampati Score: Class II MO: limited ROM: limited Teeth: missing Anesthesia Pre-op A/P Labs Hematology Test 06/01/18 03:00 White Blood Count 15.4 K/UL (4.8-10.8) H Red Blood Count 4.71 M/UL (4.70-6.10) Hemoglobin 14.1 G/DL (14.2-18.0) L Hematocrit 40.8 % (42.0-52.0) L Mean Corpuscular Volume 87 FL (80-99) Mean Corpuscular Hemoglobin 29.9 PG (27.0-31.0) Mean Corpuscular Hemoglobin Concent 34.5 G/DL (32.0-36.0) Red Cell Distribution Width 12.7 % (11.6-14.8) Platelet Count 168 K/UL (150-450) Mean Platelet Volume 7.7 FL (6.5-10.1) Neutrophils (%) (Auto) % (45.0-75.0) Lymphocytes (%) (Auto) % (20.0-45.0) Monocytes (%) (Auto) % (1.0-10.0) Eosinophils (%) (Auto) % (0.0-3.0) Basophils (%) (Auto) % (0.0-2.0) Neutrophils % (Manual) Pending Lymphocytes % (Manual) Pending Platelet Estimate Pending Platelet Morphology Pending Chemistry Test 06/01/18 03:00 Sodium Level 141 MMOL/L (136-145) Potassium Level 3.2 MMOL/L (3.5-5.1) L Chloride Level 109 MMOL/L (98-107) H Carbon Dioxide Level 22 MMOL/L (21-32) Anion Gap 10 mmol/L (5-15) Blood Urea Nitrogen 15 mg/dL (7-18) Creatinine 1.0 MG/DL (0.55-1.30) Estimat Glomerular Filtration Rate > 60 mL/min (>60) Glucose Level 137 MG/DL (74-106) H Calcium Level 9.0 MG/DL (8.5-10.1) Total Bilirubin 0.9 MG/DL (0.2-1.0) Aspartate Amino Transf (AST/SGOT) 18 U/L (15-37) Alanine Aminotransferase (ALT/SGPT) 23 U/L (12-78) Alkaline Phosphatase 149 U/L (46-116) H Total Protein 7.5 G/DL (6.4-8.2) Albumin 2.7 G/DL (3.4-5.0) L Globulin 4.8 g/dL Albumin/Globulin Ratio 0.6 (1.0-2.7) L Risk Assessment & Plan Assessment: ASA 4E Plan: GA, SED Status Change Before Surgery: No Pre-Antibiotics Dru Gram Ancef IV Given Within 1 Hr of Incision: Yes Time Given: 09:31 Preston Yousif MD Jun 01, 2018 09:23
[2018-06-01] MEDS ORDERED: Lidocaine 1% MPF 10mg/ml 5ml ONE (09:24)
[2018-06-01] MEDS ORDERED: Sodium Chloride 10ml vial INJ ONE (09:24)
[2018-06-01] MEDS ORDERED: Dexamethasone 4mg/ml vial ONE (09:24)
[2018-06-01] MEDS ORDERED: Propofol 200mg/20ml IV ONE (09:24)
--- NOTE | 2018-06-01 09:24 | Immediate Post-Op Evaluation ---
Immediate Post-Op Evalulation Immediate Post-Op Evalulation Procedure: Cystoscopy, Stent Date of Evaluation: Jun 01, 2018 Time of Evaluation: 11:19 IV Fluids: 200 LR Blood Products: 0 Estimated Blood Loss: 25 Urinary Output: 0 Blood Pressure Systolic: 121 Blood Pressure Diastolic: 78 Pulse Rate: 86 Respiratory Rate: 16 O2 Sat by Pulse Oximetry: 100 Temperature (Fahrenheit): 99 Pain Score (1-10): 2 Nausea: No Vomiting: No Complications 0 Patient Status: awake, reacts, patent, none Hydration Status: adequate Dru Gram Ancef IV Given Within 1 Hr of Incision: Yes Time Given: 09:31 Preston Yousif MD Jun 01, 2018 09:24
[2018-06-01] MEDS ORDERED: LORazepam Inj 2mg/ml 1ml IV PRN (09:30)
[2018-06-01] MEDS ORDERED: Hydromorphone 0.5mg/0.5ml inj IVP PRN (09:30)
[2018-06-01] MEDS ORDERED: oxyCODONE HCL/Acetaminophen 5/325mg ORAL PRN (09:30)
[2018-06-01] MEDS ORDERED: HYDROcodone/Acetamin 7.5/325 tab ORAL PRN (09:30)
[2018-06-01] MEDS ORDERED: Midazolam 2mg/2ml Inj IVP PRN (09:30)
[2018-06-01] MEDS ORDERED: Atropine Sulfate 0.4mg/ml inj IVP PRN (09:30)
[2018-06-01] MEDS ORDERED: Meperidine 50mg/ml Inj(FOR RIGORS ONLY) IVP PRN (09:30)
[2018-06-01] MEDS ORDERED: DiphenhydrAMINE 50mg/ml Inj IVP PRN (09:30)
[2018-06-01] MEDS ORDERED: Norco 5mg/325mg tab ORAL PRN (09:30)
[2018-06-01] MEDS ORDERED: fentaNYL 100 mcg/2 mL IV PRN (09:30)
[2018-06-01] MEDS ORDERED: Metoclopramide 10mg/2ml Inj IVP PRN (09:30)
--- NOTE | 2018-06-01 09:31 | Pre-Procedure Note/Attestation ---
Pre-Procedure Note/Attestation Complete Prior to Procedure Planned Procedure: right Procedure Narrative: cysto, retrograde pyelogram, ureteral stent, ureteroscopy Indications for Procedure Pre-Operative Diagnosis: urosepsis, right ureteral calc with hydro Attestation I attest that I discussed the nature of the procedure; its benefits; risks and complications; and alternatives (and the risks and benefits of such alternatives ), prior to the procedure, with the patient (or the patient's legal business representative). I attest that, if there was a reasonable possibility of needing a blood transfusion, the patient (or the patient's legal business representative) was given the [facility] standardized written summary, pursuant to the [place] Blood Safety Act ([place] Health and Safety Code # 1645, as amended). I attest that I re-evaluated the patient just prior to the surgery and that there has been no change in the patient's H&P, except as documented below: n/a Freedom Paris MD Jun 01, 2018 09:31
[2018-06-01] MEDS ORDERED: Midazolam 2mg/2ml Inj ONE (09:32)
--- NOTE | 2018-06-01 09:32 | Urology Progress Note ---
Assessment/Plan Assessment/Plan 1. UTI with sepsis. 2. Right renal and ureteral calculi. 3. Hydronephrosis. 4. Hematuria. 5. Urinary retention. 6. BPH. 7. Neurogenic bladder. 8. Proteinuria. 9. Renal cyst. case d/w pt's daughter extensively also d/w DrVanna's Jere and Christoph urosepsis with obst ureteral calc still with leukocytosis cont abx as ordered will need decompression of right kidney will proceed with placement of ureteral stent tx of stones later once infection/sepsis resolved Subjective Allergies: Coded Allergies: NO KNOWN ALLERGIES (Unverified Allergy, Unknown, 03/02/15) Subjective all noted, no new changes Objective Last 24 Hour Vital Signs Date Time Temp Pulse Resp B/P (MAP) Pulse Ox O2 Delivery O2 Flow Rate FiO2 06/01/18 06:28 98.6 06/01/18 05:58 110 134/96 06/01/18 04:39 110 27 100 Facial 40 06/01/18 04:00 110 06/01/18 04:00 99.2 110 24 134/96 (109) 99 06/01/18 04:00 Nasal Cannula 2.0 06/01/18 01:16 108 18 100 Nasal Cannula 2.0 06/01/18 01:15 97 18 97 Nasal Cannula 2.0 06/01/18 01:00 102 28 100 06/01/18 00:00 Nasal Cannula 2.0 06/01/18 00:00 98.2 93 20 116/79 (91) 99 05/31/18 23:00 98 24 100 Facial 40 05/31/18 21:29 100 133/88 05/31/18 20:27 133/88 05/31/18 20:00 Nasal Cannula 2.0 05/31/18 20:00 99.5 100 22 133/88 (103) 100 05/31/18 20:00 108 05/31/18 19:50 104 18 Nasal Cannula 2.0 05/31/18 19:48 105 18 100 Nasal Cannula 2.0 28 05/31/18 19:37 103 18 98 Nasal Cannula 2.0 28 05/31/18 16:00 Nasal Cannula 2.0 05/31/18 15:36 99.5 102 20 125/95 (105) 100 05/31/18 15:22 105 05/31/18 14:18 120 109/75 05/31/18 13:07 120 18 98 Nasal Cannula 3.0 32 05/31/18 12:52 106 20 97 Nasal Cannula 3.0 32 05/31/18 12:00 Nasal Cannula 2.0 05/31/18 12:00 97.5 101 20 109/75 (86) 100 05/31/18 11:52 96 05/31/18 09:55 110/72 Intake and Output 05/31/18 06/01/18 18:59 06:59 Intake Total 1337.33 ml 1260.000 ml Output Total 750 ml 1000 ml Balance 587.33 ml 260.000 ml Intake Free Water 150 ml IV Total 1337.33 ml 1110.000 ml Output Urine Total 750 ml 1000 ml # Bowel Movements 2 Microbiology Date/Time Source Procedure Growth Status 05/30/18 04:30 Blood Blood Culture - Preliminary Gram Negative Bacillus 1 Gram Negative Bacillus 2 Resulted 05/31/18 12:30 Wound Gram Stain - Final Resulted 05/31/18 12:30 Wound Wound Culture Pending Resulted 05/30/18 05:28 Nasal Nares Influenza Types A,B Antigen (MICAELA) - Final Complete 05/30/18 18:20 Indwelling Cath Urine Culture - Preliminary Gram Negative Ravindra Resulted 05/30/18 05:00 Rectum - Final NO CARBAPENEM-RESISTANT ENTEROBACTERI... Complete Current Medications Medications (Trade) Dose Ordered Sig/Kehinde Route PRN Reason Start Time Stop Time Status Last Admin Dose Admin Acetaminophen (Tylenol) 650 mg Q6H PRN GT Mild Pain/Temp > 100.5 05/30/18 16:16 06/29/18 16:15 06/01/18 05:58 Acetaminophen/ Hydrocodone Bitart ([place] 5/325) 1 tab Q1H PRN ORAL Mild Pain (Pain Scale 1-3) 06/01/18 09:30 UNV Acetaminophen/ Hydrocodone Bitart ([place] 5/325) 1 tab Q4H PRN GT PAIN 4-10 05/30/18 16:18 06/06/18 16:17 Acetaminophen/ Hydrocodone Bitart ([place] 7.5/325) 1 tab Q1H PRN ORAL Moderate Pain (Pain Scale 4-6) 06/01/18 09:30 UNV Al Hydroxide/Mg Hydroxide (Mylanta) 15 ml Q1H PRN ORAL gi upset 06/01/18 09:30 UNV Albuterol Sulfate (Proventil) 2.5 mg Q6H PRN HHN Shortness of Breath 05/30/18 16:16 06/04/18 16:15 05/31/18 09:10 Amikacin Protocol (Amikacin pharmacy to dose) 1 ea DAILY PRN MISC Per rx protocol 05/31/18 11:45 06/30/18 11:44 Amikacin Sulfate 1000 mg/Sodium Chloride 114 ml @ 114 mls/hr Q36H IV 05/31/18 15:00 06/07/18 14:59 05/31/18 15:42 Atropine Sulfate (Atropine 0.4mg/ ml) 0.5 mg Q5M PRN IVP HR<40 06/01/18 09:30 UNV Bisacodyl (Dulcolax) 10 mg DAILYPRN PRN RECTAL Constipation 05/30/18 16:16 06/29/18 16:15 Calcium Carbonate (Tums) 500 mg DAILY GT 05/31/18 09:00 06/30/18 08:59 05/31/18 09:54 Dextrose/Sodium Chloride 1,000 ml @ 100 mls/hr Q10H IV 05/30/18 16:16 06/29/18 16:15 06/01/18 08:31 Diatrizoate Meglum/ Diatrizoate Sod (Gastrografin) 30 ml ONCE PRN ORAL RADIOLOGY 05/31/18 12:30 06/01/18 23:59 Diphenhydramine HCl (Benadryl) 25 mg Q15M PRN IVP Itching 06/01/18 09:30 UNV Docusate Sodium (Colace) 100 mg DAILY GT 05/31/18 09:00 06/30/18 08:59 05/31/18 09:54 Enalapril Maleate (Vasotec) 20 mg Q12HR GT 05/30/18 21:00 06/29/18 20:59 05/31/18 20:27 Fentanyl Citrate (Sublimaze 100 mcg/2 mL) 25 mcg Q10M PRN IV Moderate Pain (Pain Scale 4-6) 06/01/18 09:30 UNV Finasteride (Proscar) 5 mg DAILY ORAL 05/31/18 09:00 06/29/18 11:44 05/31/18 09:55 Hydralazine HCl (Apresoline) 5 mg Q30M PRN IV SBP>160 / DBP>90 06/01/18 09:30 UNV Hydromorphone HCl (Dilaudid) 0.5 mg Q15M PRN IVP Severe Pain (Pain Scale 7-10) 06/01/18 09:30 UNV Ketotifen Fumarate (Zatidor) 1 drop Q12HR BOTH EYES 05/30/18 21:00 06/29/18 20:59 05/31/18 20:28 Lactated Ringer's 1,000 ml @ 10 mls/hr Q24H IVLG 06/01/18 09:18 06/01/18 11:17 UNV Lansoprazole (Prevacid) 30 mg DAILY GT 05/31/18 09:00 06/30/18 08:59 05/31/18 09:55 Levalbuterol HCl (Xopenex) 1.25 mg Q6HRT HHN 05/31/18 08:30 06/05/18 08:29 06/01/18 01:15 Lorazepam (Ativan 2mg/ml 1ml) 1 mg Q15M PRN IV For Anxiety 06/01/18 09:30 UNV Meperidine HCl (Demerol) 25 mg Q5M PRN IVP Shivering.May repeat x 1 06/01/18 09:30 UNV Metoclopramide HCl (Reglan) 10 mg Q1H PRN IVP Nausea & Vomiting 06/01/18 09:30 UNV Metoprolol Tartrate (Lopressor) 100 mg Q8HR GT 05/30/18 22:00 06/29/18 12:59 06/01/18 05:58 Midazolam HCl (Versed 2mg/2ml vial) 1 mg Q15M PRN IVP For Anxiety 06/01/18 09:30 UNV Ondansetron HCl (Zofran) 4 mg Q1H PRN IVP Nausea & Vomiting 06/01/18 09:30 UNV Ondansetron HCl (Zofran) 4 mg Q6H PRN GT Nausea & Vomiting 05/30/18 16:19 06/29/18 16:18 Oxycodone/ Acetaminophen (Percocet 5-325) 1 tab Q1H PRN ORAL Severe Pain (Pain Scale 7-10) 06/01/18 09:30 UNV Piperacillin Sod/ Tazobactam Sod 3.375 gm/Dextrose 100 ml @ 25 mls/hr EVERY 8 HOURS IVPB 05/30/18 22:00 06/04/18 21:59 06/01/18 06:05 Polyethylene Glycol (Miralax) 17 gm DAILY GT 05/31/18 09:00 06/29/18 12:59 05/31/18 09:54 Sennosides (Senokot) 8.6 mg QHS GT 05/30/18 21:00 06/29/18 12:29 05/30/18 20:10 Sodium Chloride (NaCl) 2 gm DAILY GT 05/31/18 09:00 06/29/18 12:59 05/31/18 09:56 Sodium Phosphate (Fleet's Sodium Phosl Enema) 133 ml DAILYPRN PRN RECTAL Constipation 05/30/18 16:18 06/29/18 16:17 Trazodone HCl (Desyrel) 12.5 mg QHS GT 05/30/18 21:00 06/29/18 20:59 05/31/18 20:26 Vancomycin HCl (Vanco rx to dose) 1 ea DAILY PRN MISC Per rx protocol 05/31/18 09:00 06/29/18 11:44 Vancomycin HCl 500 mg/Dextrose 110 ml @ 110 mls/hr Q8H IVPB 06/01/18 10:00 06/06/18 09:59 Zinc Oxide (Zinc Oxide) 1 applic BEDTIME TOPIC 05/31/18 21:00 06/30/18 13:59 05/31/18 20:29 Laboratory Tests 06/01/18 02:05: Vancomycin Level Trough 11.1 06/01/18 03:00: White Blood Count 15.4H, Red Blood Count 4.71, Hemoglobin 14.1L, Hematocrit 40.8L, Mean Corpuscular Volume 87, Mean Corpuscular Hemoglobin 29.9, Mean Corpuscular Hemoglobin Concent 34.5, Red Cell Distribution Width 12.7, Platelet Count 168, Mean Platelet Volume 7.7, Neutrophils (%) (Auto) , Lymphocytes (%) ( Auto) , Monocytes (%) (Auto) , Eosinophils (%) (Auto) , Basophils (%) (Auto) , Neutrophils % (Manual) [Pending], Lymphocytes % (Manual) [Pending], Platelet Estimate [Pending], Platelet Morphology [Pending], Sodium Level 141, Potassium Level 3.2L, Chloride Level 109H, Carbon Dioxide Level 22, Anion Gap 10, Blood Urea Nitrogen 15, Creatinine 1.0, Estimat Glomerular Filtration Rate > 60, Glucose Level 137H, Calcium Level 9.0, Total Bilirubin 0.9, Aspartate Amino Transf (AST/SGOT) 18, Alanine Aminotransferase (ALT/SGPT) 23, Alkaline Phosphatase 149H, Total Protein 7.5, Albumin 2.7L, Globulin 4.8, Albumin/ Globulin Ratio 0.6L, Random Amikacin Level 14.9 Height (Feet): 5 Height (Inches): 4.00 Weight (Pounds): 160 Objective exam stable Freedom Paris MD Jun 01, 2018 09:32
--- NOTE | 2018-06-01 09:54 | 48 Hour Post Anesthesia Eval ---
Post Anesthesia Evaluation Procedure: Cystoscopy, Stent Date of Evaluation: Jun 01, 2018 Time of Evaluation: 13:26 Blood Pressure Systolic: 145 0: 93 Pulse Rate: 97 Respiratory Rate: 18 Temperature (Fahrenheit): 99 O2 Sat by Pulse Oximetry: 100 Airway: patent Nausea: No Vomiting: No Pain Intensity: 2 Hydration Status: adequate Cardiopulmonary Status: Stable Mental Status/LOC: patient returned to baseline Follow-up Care/Observations: 0 Post-Anesthesia Complications: 0 Follow-up care needed: N/A Preston Yousif MD Jun 01, 2018 09:54
--- NOTE | 2018-06-01 11:06 | Brief Operative Note ---
Immediate Post Operative Note Operative Note Pre-op Diagnosis: urosepsis, right ureteral calc with hydro Procedure: cysto, right retrograde pyelogram, ureteroscopy, cystogram Post-op Diagnosis: urosepsis, obst right ureteral calc with hydro Post-op Diagnosis: same as pre-op Findings: other - very diff positioning secondary to contruactures, tortuous ureter, possible impacted stone, unable to pass wire or place stent Surgeon: lydia Anesthesiologist: elaina Anesthesia: general Specimen: none Complications: none Condition: stable Fluids: NS Estimated Blood Loss: minimal Implant(s) used?: No Freedom Paris MD Jun 01, 2018 11:06
[2018-06-01] MEDS ORDERED: Albuterol ud Inhalation ONE (11:24)
[2018-06-01] MEDS: Albuterol/Ipratropium 3ml neb HHN PRN (11:35)
[2018-06-01] MEDS: Albuterol ud Inhalation HHN PRN ×2 (11:35→11:37)
[2018-06-01] MEDS ORDERED: D5NS 1000ml IV ONE (15:44)
[2018-06-01] MEDS ORDERED: NS 275ml ONE (15:44)
[2018-06-01] MEDS ORDERED: Tubing IV Secondary IV ONE (15:44)
--- NOTE | 2018-06-01 16:50 | Pulmonology Progress Note ---
Assessment/Plan Assessment/Plan Assessment/Plan 1. Sepsis with fever and leukocytosis 2. Abdominal distention, possible abdominal sepsis. 3. Acute respiratory failure, requiring BiPAP. 4. History of stroke with right hemiparesis and aphasia. 5. Gastric tube dysfunction/malfunction. 6. Hypertension. 7. DNR. 8. Possible pneumonia 9. bacteremia and UTI bipap qhs adn prn distress nebs adn suction CXR in am IV abx per ID wound care and Fu with sugery recommendations TF pain control check Am labs labs better Subjective ROS Limited/Unobtainable: Yes Allergies: Coded Allergies: NO KNOWN ALLERGIES (Unverified Allergy, Unknown, 03/02/15) Subjective awake tolerating TF bipap at night' no cp nv or bleeding no fevern oted doesnt get oob Objective Last 24 Hour Vital Signs Date Time Temp Pulse Resp B/P (MAP) Pulse Ox O2 Delivery O2 Flow Rate FiO2 06/01/18 16:00 Nasal Cannula 2.0 06/01/18 15:04 104 120/87 06/01/18 13:06 134/74 06/01/18 13:00 98.1 120 24 134/74 (94) 98 06/01/18 12:50 125 06/01/18 12:12 110 18 100 Nasal Cannula 2.0 28 06/01/18 12:02 111 18 100 Simple Mask 6.0 40 06/01/18 12:00 Nasal Cannula 2.0 06/01/18 11:50 102 22 139/106 98 Simple Mask 6 06/01/18 11:35 99 22 135/98 99 Simple Mask 8 06/01/18 11:25 101 22 124/79 99 Simple Mask 8 06/01/18 11:15 93 22 130/91 99 Simple Mask 8 06/01/18 11:10 93 22 128/83 99 Simple Mask 8 06/01/18 11:08 99.0 91 22 130/93 99 Simple Mask 8 06/01/18 11:08 97 18 100 06/01/18 11:07 86 16 100 06/01/18 08:00 97.9 96 28 135/92 (106) 93 06/01/18 08:00 Nasal Cannula 2.0 06/01/18 08:00 98 06/01/18 06:30 Nasal Cannula 06/01/18 06:30 Nasal Cannula 2.0 28 06/01/18 06:30 96 Nasal Cannula 2.0 28 06/01/18 06:28 98.6 06/01/18 05:58 110 134/96 06/01/18 04:39 110 27 100 Facial 40 06/01/18 04:00 110 06/01/18 04:00 99.2 110 24 134/96 (109) 99 06/01/18 04:00 Nasal Cannula 2.0 06/01/18 01:16 108 18 100 Nasal Cannula 2.0 28 06/01/18 01:15 97 18 97 Nasal Cannula 2.0 28 06/01/18 01:00 102 28 100 06/01/18 00:00 Nasal Cannula 2.0 06/01/18 00:00 98.2 93 20 116/79 (91) 99 05/31/18 23:00 98 24 100 Facial 40 05/31/18 21:29 100 133/88 05/31/18 20:27 133/88 05/31/18 20:00 Nasal Cannula 2.0 05/31/18 20:00 99.5 100 22 133/88 (103) 100 05/31/18 20:00 108 05/31/18 19:50 104 18 Nasal Cannula 2.0 28 05/31/18 19:48 105 18 100 Nasal Cannula 2.0 28 05/31/18 19:37 103 18 98 Nasal Cannula 2.0 28 Intake and Output 05/31/18 06/01/18 19:00 07:00 Intake Total 1337.33 ml 1160.000 ml Output Total 750 ml 1000 ml Balance 587.33 ml 160.000 ml Intake Free Water 150 ml IV Total 1337.33 ml 1010.000 ml Output Urine Total 750 ml 1000 ml # Bowel Movements 2 General Appearance: cachetic Respiratory/Chest: rhonchi Cardiovascular: normal rate, regular rhythm, edema Abdomen: soft, non tender, non distended Extremities: no clubbing Skin: no rash Neurologic/Psychiatric: alert, motor weakness Lymphatic: no neck adenopathy Microbiology Date/Time Source Procedure Growth Status 05/30/18 04:30 Blood Blood Culture - Preliminary Gram Negative Bacillus 1 Gram Negative Bacillus 2 Resulted 05/30/18 04:15 Blood Blood Culture - Preliminary Gram Negative Bacillus 1 Gram Negative Bacillus 2 Resulted 05/31/18 12:30 Wound Gram Stain - Final Resulted 05/31/18 12:30 Wound Culture - Preliminary Gram Negative Bacillus 1 Resulted 05/30/18 05:28 Nasal Nares Influenza Types A,B Antigen (MICAELA) - Final Complete 05/30/18 05:00 Nose MRSA Culture - Final NO METHICILLIN RESISTANT STAPH AUREUS... Complete 05/30/18 18:20 Indwelling Cath Urine Culture - Preliminary Gram Negative Ravindra Resulted 05/30/18 04:43 Urine,Clean Catch Urine Culture - Preliminary Proteus Mirabilis Gram Negative Bacillus 2 Resulted 05/30/18 05:00 Rectum - Final NO CARBAPENEM-RESISTANT ENTEROBACTERI... Complete 05/30/18 05:00 Rectum VRE Culture - Final Enterococcus Faecium - Vre Complete Laboratory Tests 06/01/18 02:05: Vancomycin Level Trough 11.1 06/01/18 03:00: White Blood Count 15.4H, Red Blood Count 4.71, Hemoglobin 14.1L, Hematocrit 40.8L, Mean Corpuscular Volume 87, Mean Corpuscular Hemoglobin 29.9, Mean Corpuscular Hemoglobin Concent 34.5, Red Cell Distribution Width 12.7, Platelet Count 168, Mean Platelet Volume 7.7, Neutrophils (%) (Auto) , Lymphocytes (%) ( Auto) , Monocytes (%) (Auto) , Eosinophils (%) (Auto) , Basophils (%) (Auto) , Differential Total Cells Counted 100, Neutrophils % (Manual) 71, Lymphocytes % ( Manual) 7L, Monocytes % (Manual) 4, Eosinophils % (Manual) 0, Basophils % ( Manual) 0, Band Neutrophils 18H, Platelet Estimate Adequate, Platelet Morphology Normal, Red Blood Cell Morphology Normal, Sodium Level 141, Potassium Level 3.2L, Chloride Level 109H, Carbon Dioxide Level 22, Anion Gap 10 , Blood Urea Nitrogen 15, Creatinine 1.0, Estimat Glomerular Filtration Rate > 60, Glucose Level 137H, Calcium Level 9.0, Total Bilirubin 0.9, Aspartate Amino Transf (AST/SGOT) 18, Alanine Aminotransferase (ALT/SGPT) 23, Alkaline Phosphatase 149H, Total Protein 7.5, Albumin 2.7L, Globulin 4.8, Albumin/ Globulin Ratio 0.6L, Random Amikacin Level 14.9 Current Medications Medications (Trade) Dose Ordered Sig/Kehinde Route PRN Reason Start Time Stop Time Status Last Admin Dose Admin Acetaminophen (Tylenol) 650 mg Q6H PRN GT Mild Pain/Temp > 100.5 05/30/18 16:16 06/29/18 16:15 06/01/18 05:58 Acetaminophen/ Hydrocodone Bitart ([place] 5/325) 1 tab Q4H PRN GT PAIN 4-10 05/30/18 16:18 06/06/18 16:17 Albuterol Sulfate (Proventil) 2.5 mg Q6H PRN HHN Shortness of Breath 05/30/18 16:16 06/04/18 16:15 05/31/18 09:10 Albuterol/ Ipratropium (Albuterol/ Ipratropium) 3 ml STAT PRN HHN Shortness of Breath 06/01/18 11:30 06/06/18 11:29 06/01/18 11:35 Amikacin Protocol (Amikacin pharmacy to dose) 1 ea DAILY PRN MISC Per rx protocol 05/31/18 11:45 06/30/18 11:44 Amikacin Sulfate 1000 mg/Sodium Chloride 114 ml @ 114 mls/hr Q36H IV 05/31/18 15:00 06/07/18 14:59 05/31/18 15:42 Bisacodyl (Dulcolax) 10 mg DAILYPRN PRN RECTAL Constipation 05/30/18 16:16 06/29/18 16:15 Calcium Carbonate (Tums) 500 mg DAILY GT 05/31/18 09:00 06/30/18 08:59 06/01/18 13:08 Dextrose/Sodium Chloride 1,000 ml @ 100 mls/hr Q10H IV 05/30/18 16:16 06/29/18 16:15 06/01/18 08:31 Diatrizoate Meglum/ Diatrizoate Sod (Gastrografin) 30 ml ONCE PRN ORAL RADIOLOGY 05/31/18 12:30 06/01/18 23:59 Docusate Sodium (Colace) 100 mg DAILY GT 05/31/18 09:00 06/30/18 08:59 06/01/18 13:05 Enalapril Maleate (Vasotec) 20 mg Q12HR GT 05/30/18 21:00 06/29/18 20:59 06/01/18 13:06 Finasteride (Proscar) 5 mg DAILY ORAL 05/31/18 09:00 06/29/18 11:44 06/01/18 13:07 Ketotifen Fumarate (Zatidor) 1 drop Q12HR BOTH EYES 05/30/18 21:00 06/29/18 20:59 05/31/18 20:28 Lansoprazole (Prevacid) 30 mg DAILY GT 05/31/18 09:00 06/30/18 08:59 06/01/18 13:08 Levalbuterol HCl (Xopenex) 1.25 mg Q6HRT HHN 05/31/18 08:30 06/05/18 08:29 06/01/18 12:02 Metoprolol Tartrate (Lopressor) 100 mg Q8HR GT 05/30/18 22:00 06/29/18 12:59 06/01/18 15:04 Ondansetron HCl (Zofran) 4 mg Q6H PRN GT Nausea & Vomiting 05/30/18 16:19 06/29/18 16:18 Piperacillin Sod/ Tazobactam Sod 3.375 gm/Dextrose 100 ml @ 25 mls/hr EVERY 8 HOURS IVPB 05/30/18 22:00 06/04/18 21:59 06/01/18 15:03 Polyethylene Glycol (Miralax) 17 gm DAILY GT 05/31/18 09:00 06/29/18 12:59 06/01/18 13:05 Sennosides (Senokot) 8.6 mg QHS GT 05/30/18 21:00 06/29/18 12:29 05/30/18 20:10 Sodium Chloride (NaCl) 2 gm DAILY GT 05/31/18 09:00 06/29/18 12:59 06/01/18 13:07 Sodium Phosphate (Fleet's Sodium Phosl Enema) 133 ml DAILYPRN PRN RECTAL Constipation 05/30/18 16:18 06/29/18 16:17 Tamsulosin HCl (Flomax) 0.4 mg BEDTIME ORAL 06/01/18 21:00 07/01/18 20:59 Trazodone HCl (Desyrel) 12.5 mg QHS GT 05/30/18 21:00 06/29/18 20:59 05/31/18 20:26 Vancomycin HCl (Vanco rx to dose) 1 ea DAILY PRN MISC Per rx protocol 05/31/18 09:00 06/29/18 11:44 Vancomycin/Sodium Chloride 250 ml @ 166.667 mls/hr Q12H IVPB 06/02/18 04:00 06/07/18 03:59 Zinc Oxide (Zinc Oxide) 1 applic BEDTIME TOPIC 05/31/18 21:00 06/30/18 13:59 05/31/18 20:29 Indigo Alarcon DO Jun 01, 2018 16:50
--- NOTE | 2018-06-01 18:07 | Infectious Diseases Prog Note ---
Assessment/Plan Assessment/Plan ASSESSMENT AND PLAN: 1. Gram neg bacteremia, sepsis, sirs, proteus uti, nephrolithiasis/ hydronephrosis, ? g-tube infection - zosyn, vancomycin and amikacin for now - clinically improved, fevers better, leukocytosis persists - check cultures, monitor labs, f/u chest x-ray, imaging noted - d/w Dr. Paris, unable to place stent secondary to contractures and pt positioning - d/w microbiology and RN at length 2. The patient has history of dysphagia and G-tube 3. Hypernatremia. 4. Shortness of breath, chf - clinically better 5. The patient has history of CVA and aspiration risk. 6. Dysphagia. G-tube. 7. Essential hypertension. Blood pressure treatment per Dr. Oquendo. 8. Atherosclerotic heart disease and angina pectoris history. 9. COPD. 10. BPH. 11. History of urinary retention. 12. No history diabetes. 13. No known allergies. 14. Social history is negative. 15. Family history is noncontributory. 16. MAR was noted. 17. Case was discussed with RN. 18. The patient is now in the step-down unit care. 19. Case was discussed with Dr. Oquendo. 20. Continue treatment per primary consultants. 21. Notes and records were noted. 22. Skin care protocol. 23. Orders were entered. Subjective Constitutional: Reports: fever, fatigue, other - fever curve better, less sob and distress, no bipap, more alert HEENT: Reports: congestion - less Respiratory: Reports: shortness of breath - less Cardiovascular: Denies: chest pain Gastrointestinal/Abdominal: Denies: nausea, vomiting, diarrhea Genitourinary: Reports: other - + quiles Neurologic: Denies: headache Psychiatric: Denies: depression Skin: Denies: rash Hematologic: Denies: bleeding Musculoskeletal: Denies: pain Allergies: Coded Allergies: NO KNOWN ALLERGIES (Unverified Allergy, Unknown, 03/02/15) Objective Vital Signs Last 24 Hour Vital Signs Date Time Temp Pulse Resp B/P (MAP) Pulse Ox O2 Delivery O2 Flow Rate FiO2 06/01/18 16:00 Nasal Cannula 2.0 06/01/18 16:00 103 06/01/18 16:00 97.9 87 24 131/92 (105) 97 06/01/18 15:04 104 120/87 06/01/18 13:06 134/74 06/01/18 13:00 98.1 120 24 134/74 (94) 98 06/01/18 12:50 125 06/01/18 12:12 110 18 100 Nasal Cannula 2.0 28 06/01/18 12:02 111 18 100 Simple Mask 6.0 40 06/01/18 12:00 Nasal Cannula 2.0 06/01/18 11:50 102 22 139/106 98 Simple Mask 6 06/01/18 11:35 99 22 135/98 99 Simple Mask 8 06/01/18 11:25 101 22 124/79 99 Simple Mask 8 06/01/18 11:15 93 22 130/91 99 Simple Mask 8 06/01/18 11:10 93 22 128/83 99 Simple Mask 8 06/01/18 11:08 99.0 91 22 130/93 99 Simple Mask 8 06/01/18 11:08 97 18 100 06/01/18 11:07 86 16 100 06/01/18 08:00 97.9 96 28 135/92 (106) 93 06/01/18 08:00 Nasal Cannula 2.0 06/01/18 08:00 98 06/01/18 06:30 Nasal Cannula 06/01/18 06:30 Nasal Cannula 2.0 28 06/01/18 06:30 96 Nasal Cannula 2.0 28 06/01/18 06:28 98.6 06/01/18 05:58 110 134/96 06/01/18 04:39 110 27 100 Facial 40 06/01/18 04:00 110 06/01/18 04:00 99.2 110 24 134/96 (109) 99 06/01/18 04:00 Nasal Cannula 2.0 06/01/18 01:16 108 18 100 Nasal Cannula 2.0 28 06/01/18 01:15 97 18 97 Nasal Cannula 2.0 28 06/01/18 01:00 102 28 100 06/01/18 00:00 Nasal Cannula 2.0 06/01/18 00:00 98.2 93 20 116/79 (91) 99 05/31/18 23:00 98 24 100 Facial 40 05/31/18 21:29 100 133/88 05/31/18 20:27 133/88 05/31/18 20:00 Nasal Cannula 2.0 05/31/18 20:00 99.5 100 22 133/88 (103) 100 05/31/18 20:00 108 05/31/18 19:50 104 18 Nasal Cannula 2.0 28 05/31/18 19:48 105 18 100 Nasal Cannula 2.0 28 05/31/18 19:37 103 18 98 Nasal Cannula 2.0 28 Height (Feet): 5 Height (Inches): 4.00 Weight (Pounds): 160 General Appearance: no acute distress, other - less sob, more alert, less distress HEENT: normocephalic, atraumatic, anicteric Respiratory/Chest: crackles/rales, rhonchi - bilaterally Cardiovascular: normal rate, regular rhythm, no gallop/murmur, no JVD Abdomen: normal bowel sounds, soft, non tender, no organomegaly, non distended Genitourinary: other - + quiles - urine cloudy but clearer Extremities: no cyanosis, other - no cellultis Skin: no rash Neurologic/Psychiatric: restrooms or lounges maid II-XII grossly normal, alert, responsive, motor weakness Lymphatic: no neck adenopathy Musculoskeletal: no effusion Objective Chest x-ray - 05/31/18 - Findings: Interstitial edema and prominent pulmonary vascularity demonstrated. Heart is enlarged. Lung volumes are low. The bones are osteopenic. There are erosive changes involving the humeral head on the right suspected. These correlate clinically. IMPRESSION: Moderate CHF. Right humeral head erosions. Further evaluation recommended CT abdomen and pelvis - IMPRESSION: Mild right hydroureteronephrosis secondary to a 5 mm obstructing stone in the distal right ureter. Additional 4 mm nonobstructive stone in the right kidney. Left renal cyst Gastrostomy Basilar atelectasis and/or scarring Hiatal hernia. Quiles catheter. Thickening of the wall the urinary bladder noted. Cystitis not excluded. [facility] has communicated the preliminary results to the Emergency Department. Their findings are largely concordant with this report. Microbiology Date/Time Source Procedure Growth Status 05/30/18 04:30 Blood Blood Culture - Preliminary Gram Negative Bacillus 1 Gram Negative Bacillus 2 Resulted 05/30/18 04:15 Blood Blood Culture - Preliminary Gram Negative Bacillus 1 Gram Negative Bacillus 2 Resulted 05/31/18 12:30 Wound Gram Stain - Final Resulted 05/31/18 12:30 Wound Culture - Preliminary Gram Negative Bacillus 1 Resulted 12/13/18 05:28 Nasal Nares Influenza Types A,B Antigen (MICAELA) - Final Complete 05/30/18 05:00 Nose MRSA Culture - Final NO METHICILLIN RESISTANT STAPH AUREUS... Complete 05/30/18 18:20 Indwelling Cath Urine Culture - Preliminary Gram Negative Ravindra Resulted 05/30/18 04:43 Urine,Clean Catch Urine Culture - Preliminary Proteus Mirabilis Gram Negative Bacillus 2 Resulted 05/30/18 05:00 Rectum - Final NO CARBAPENEM-RESISTANT ENTEROBACTERI... Complete 05/30/18 05:00 Rectum VRE Culture - Final Enterococcus Faecium - Vre Complete Laboratory Tests Test 06/01/18 02:05 06/01/18 03:00 Vancomycin Level Trough 11.1 ug/mL (5.0-12.0) White Blood Count 15.4 K/UL (4.8-10.8) H Red Blood Count 4.71 M/UL (4.70-6.10) Hemoglobin 14.1 G/DL (14.2-18.0) L Hematocrit 40.8 % (42.0-52.0) L Mean Corpuscular Volume 87 FL (80-99) Mean Corpuscular Hemoglobin 29.9 PG (27.0-31.0) Mean Corpuscular Hemoglobin Concent 34.5 G/DL (32.0-36.0) Red Cell Distribution Width 12.7 % (11.6-14.8) Platelet Count 168 K/UL (150-450) Mean Platelet Volume 7.7 FL (6.5-10.1) Neutrophils (%) (Auto) % (45.0-75.0) Lymphocytes (%) (Auto) % (20.0-45.0) Monocytes (%) (Auto) % (1.0-10.0) Eosinophils (%) (Auto) % (0.0-3.0) Basophils (%) (Auto) % (0.0-2.0) Differential Total Cells Counted 100 Neutrophils % (Manual) 71 % (45-75) Lymphocytes % (Manual) 7 % (20-45) L Monocytes % (Manual) 4 % (1-10) Eosinophils % (Manual) 0 % (0-3) Basophils % (Manual) 0 % (0-2) Band Neutrophils 18 % (0-8) H Platelet Estimate Adequate Platelet Morphology Normal Red Blood Cell Morphology Normal Sodium Level 141 MMOL/L (136-145) Potassium Level 3.2 MMOL/L (3.5-5.1) L Chloride Level 109 MMOL/L (98-107) H Carbon Dioxide Level 22 MMOL/L (21-32) Anion Gap 10 mmol/L (5-15) Blood Urea Nitrogen 15 mg/dL (7-18) Creatinine 1.0 MG/DL (0.55-1.30) Estimat Glomerular Filtration Rate > 60 mL/min (>60) Glucose Level 137 MG/DL (74-106) H Calcium Level 9.0 MG/DL (8.5-10.1) Total Bilirubin 0.9 MG/DL (0.2-1.0) Aspartate Amino Transf (AST/SGOT) 18 U/L (15-37) Alanine Aminotransferase (ALT/SGPT) 23 U/L (12-78) Alkaline Phosphatase 149 U/L (46-116) H Total Protein 7.5 G/DL (6.4-8.2) Albumin 2.7 G/DL (3.4-5.0) L Globulin 4.8 g/dL Albumin/Globulin Ratio 0.6 (1.0-2.7) L Random Amikacin Level 14.9 ug/mL Current Medications Medications (Trade) Dose Ordered Sig/Kehinde Route PRN Reason Start Time Stop Time Status Last Admin Dose Admin Acetaminophen (Tylenol) 650 mg Q6H PRN GT Mild Pain/Temp > 100.5 05/30/18 16:16 06/29/18 16:15 06/01/18 05:58 Acetaminophen/ Hydrocodone Bitart ([place] 5/325) 1 tab Q4H PRN GT PAIN 4-10 05/30/18 16:18 06/06/18 16:17 Albuterol Sulfate (Proventil) 2.5 mg Q6H PRN HHN Shortness of Breath 05/30/18 16:16 06/04/18 16:15 05/31/18 09:10 Albuterol/ Ipratropium (Albuterol/ Ipratropium) 3 ml STAT PRN HHN Shortness of Breath 06/01/18 11:30 06/06/18 11:29 06/01/18 11:35 Amikacin Protocol (Amikacin pharmacy to dose) 1 ea DAILY PRN MISC Per rx protocol 05/31/18 11:45 06/30/18 11:44 Amikacin Sulfate 1000 mg/Sodium Chloride 114 ml @ 114 mls/hr Q36H IV 05/31/18 15:00 06/07/18 14:59 05/31/18 15:42 Bisacodyl (Dulcolax) 10 mg DAILYPRN PRN RECTAL Constipation 05/30/18 16:16 06/29/18 16:15 Calcium Carbonate (Tums) 500 mg DAILY GT 05/31/18 09:00 06/30/18 08:59 06/01/18 13:08 Dextrose/Sodium Chloride 1,000 ml @ 100 mls/hr Q10H IV 05/30/18 16:16 06/29/18 16:15 06/01/18 08:31 Diatrizoate Meglum/ Diatrizoate Sod (Gastrografin) 30 ml ONCE PRN ORAL RADIOLOGY 05/31/18 12:30 06/01/18 23:59 Docusate Sodium (Colace) 100 mg DAILY GT 05/31/18 09:00 06/30/18 08:59 06/01/18 13:05 Enalapril Maleate (Vasotec) 20 mg Q12HR GT 05/30/18 21:00 06/29/18 20:59 06/01/18 13:06 Finasteride (Proscar) 5 mg DAILY ORAL 05/31/18 09:00 06/29/18 11:44 06/01/18 13:07 Ketotifen Fumarate (Zatidor) 1 drop Q12HR BOTH EYES 05/30/18 21:00 06/29/18 20:59 05/31/18 20:28 Lansoprazole (Prevacid) 30 mg DAILY GT 05/31/18 09:00 06/30/18 08:59 06/01/18 13:08 Levalbuterol HCl (Xopenex) 1.25 mg Q6HRT HHN 05/31/18 08:30 06/05/18 08:29 06/01/18 12:02 Metoprolol Tartrate (Lopressor) 100 mg Q8HR GT 05/30/18 22:00 06/29/18 12:59 06/01/18 15:04 Ondansetron HCl (Zofran) 4 mg Q6H PRN GT Nausea & Vomiting 05/30/18 16:19 06/29/18 16:18 Piperacillin Sod/ Tazobactam Sod 3.375 gm/Dextrose 100 ml @ 25 mls/hr EVERY 8 HOURS IVPB 05/30/18 22:00 06/04/18 21:59 06/01/18 15:03 Polyethylene Glycol (Miralax) 17 gm DAILY GT 05/31/18 09:00 06/29/18 12:59 06/01/18 13:05 Sennosides (Senokot) 8.6 mg QHS GT 05/30/18 21:00 06/29/18 12:29 05/30/18 20:10 Sodium Chloride (NaCl) 2 gm DAILY GT 05/31/18 09:00 06/29/18 12:59 06/01/18 13:07 Sodium Phosphate (Fleet's Sodium Phosl Enema) 133 ml DAILYPRN PRN RECTAL Constipation 05/30/18 16:18 06/29/18 16:17 Tamsulosin HCl (Flomax) 0.4 mg BEDTIME ORAL 06/01/18 21:00 07/01/18 20:59 Trazodone HCl (Desyrel) 12.5 mg QHS GT 05/30/18 21:00 06/29/18 20:59 05/31/18 20:26 Vancomycin HCl (Vanco rx to dose) 1 ea DAILY PRN MISC Per rx protocol 05/31/18 09:00 06/29/18 11:44 Vancomycin/Sodium Chloride 250 ml @ 166.667 mls/hr Q12H IVPB 06/02/18 04:00 06/07/18 03:59 Zinc Oxide (Zinc Oxide) 1 applic BEDTIME TOPIC 05/31/18 21:00 06/30/18 13:59 05/31/18 20:29 Rodriguez Hawthorne MD Jun 01, 2018 18:07
[2018-06-01] MEDS: TraZODone HCl 25 mg tablet GT SCH (20:53)
[2018-06-01] MEDS: Tamsulosin 0.4mg cap ORAL SCH (20:53)
[2018-06-01] MEDS: Sennosides 8.6mg tab GT SCH (20:54)
[2018-06-01] MEDS: Zinc Oxide Oint 2oz TOPIC SCH (20:54)
--- NOTE | 2018-06-01 21:15 | Operative Note - Dictated ---
DATE OF OPERATION: 06/01/2018 PREOPERATIVE DIAGNOSES: Urosepsis and right hydronephrosis with right ureteral calculus. POSTOPERATIVE DIAGNOSES: Urosepsis and right hydronephrosis with right ureteral calculus. PROCEDURE PERFORMED: Cystoscopy with right retrograde pyelogram, right ureteroscopy, and cystogram. OPERATING SURGEON: Freedom Paris M.D. ANESTHESIOLOGIST: Dr. Yousif. ANESTHESIA: General. INDICATIONS FOR PROCEDURE: This is an unfortunate 63-year-old male with multiple medical problems. He was admitted to the hospital because of fevers as well as tachypnea. He was noted to have leukocytosis. He had a workup that showed positive urine and blood cultures with obstructive stone of the right ureter on CT scan. There was a question that the sepsis is arising from this obstruction of his kidney, and as such, decision was made to place a stent to unobstruct the kidney. The patient is not able to make decisions and I did talk to his daughter extensively and consent was obtained. Possible risks and complications of bleeding, infection, anesthesia, and damage to the urethra, bladder, ureter and need for surgery were discussed. No guarantees were implied. FINDINGS: The patient is severely contracted and positioning was very difficult. It was very difficult to gain access to the patient's bladder. The right ureter was tortuous. I was able to get to the ureter, however, I was not able to pass the wire up, possibly secondary to tortuosity and also possibly impacted stone, as such I was not able to place a stent. PROCEDURE IN DETAIL: Informed consent was obtained from the patient's daughter. The patient was brought to the operating room and then placed in the supine position. Successful general anesthesia was induced. The patient was then attempted to be positioned. His lower extremities are severely contracted and positioning was very difficult. We took great care not to pull on his ligaments and tendons too much, and again it was very difficult to position him and just barely be able to do a cystoscopy. He was then prepped and draped in usual sterile fashion. He had no antibiotics on the floor. I then did cystoscopy, and again because of his positioning, it was very difficult to gain access to the bladder. I was able to eventually get into the bladder. There were some bullous changes around the bladder neck and some mucosal changes. I was able to identify what appeared to be a right ureteral orifice with some mucus surrounded. This was cannulated with an open-ended catheter. Some contrast was injected and there was severe tortuosity of the entire ureter. I did attempt to pass a wire through this area, however, the wire would not go through and an open-ended catheter would not go through either. I was not able to get enough of fulcrum to pass it. I could not get a good angle on the orifice because of the positioning and anatomy of severe contractures. The flexible cystoscope was not available. I then used a flexible ureteroscope to go in through the urethra and I was able to actually gain access to the orifice and get into the distal ureter where some resistance was noted, was gently dilated with passage of the scope. I also attempted to pass a wire through the scope into the ureter and again the wire would not go up. I could not have enough of fulcrum to pass it up and this may be because of severe tortuosity of the ureter or possibly impaction of the stone. After multiple tries, this was abandoned. Ureteroscope was removed. I then placed a Lynn catheter and a cystogram was done and that showed good positioning of the Lynn. The patient was awakened, was taken to recovery room in stable condition. Blood loss was is minimal. He will be need to be monitored clinically and if need be possibly have a nephrostomy placed by Interventional Radiology to decompress the right kidney. Freedom Paris M.D. DR: ERIC JOB#: [id number] CC: Jose J Oquendo M.D.; Fax#: [phone]
[2018-06-02] VITALS: BP 141/90
[2018-06-02] MEDS: Levalbuterol Inh UD 1.25mg/0.5ml HHN SCH ×4 (01:22→20:07)
[2018-06-02] MEDS: Amikacin 1,000 MG in NS 110 ML IV SCH (02:11)
[2018-06-02 04:00] VITALS: BP 138/95
[2018-06-02] MEDS: Vancomycin 750mg/NS 250ml 250 ML IVPB SCH ×2 (04:16→16:55)
[2018-06-02] MEDS: D5NS 1,000 ML IV SCH ×2 (04:16→14:32)
[2018-06-02 05:06] LABS: HEMATOCRIT 41.7 % (42.0-52.0); HEMOGLOBIN 14.2 G/DL (14.2-18.0); MEAN CORPUSCULAR VOLUME 87 FL (80-99); PLATELET COUNT 156 K/UL (150-450); RED BLOOD COUNT 4.81 M/UL (4.70-6.10); RED CELL DISTRIBUTION WIDTH 13.1 % (11.6-14.8); WHITE BLOOD COUNT 7.2 K/UL (4.8-10.8)
[2018-06-02] MEDS: Albuterol/Ipratropium 3ml neb HHN PRN (05:23)
[2018-06-02 05:35] LABS: ALANINE AMINOTRANSFERASE 20 U/L (12-78); ALBUMIN 2.6 G/DL (3.4-5.0); ALBUMIN/GLOBULIN RATIO 0.6 (1.0-2.7); ALKALINE PHOSPHATASE 131 U/L (46-116); ANION GAP 10 mmol/L (5-15); ASPARTATE AMINO TRANSFERASE 12 U/L (15-37); BILIRUBIN,TOTAL 0.6 MG/DL (0.2-1.0); BLOOD UREA NITROGEN 14 mg/dL (7-18); CALCIUM 8.9 MG/DL (8.5-10.1); CARBON DIOXIDE 23 MMOL/L (21-32); CHLORIDE 109 MMOL/L (98-107); CREATININE 0.9 MG/DL (0.55-1.30); POTASSIUM 3.2 MMOL/L (3.5-5.1); SODIUM 142 MMOL/L (136-145)
--- NOTE | 2018-06-02 06:37 | Pulmonology Progress Note ---
Assessment/Plan Assessment/Plan Assessment/Plan 1. Sepsis with fever and leukocytosis 2. Abdominal distention, possible abdominal sepsis. 3. Acute respiratory failure, requiring BiPAP. 4. History of stroke with right hemiparesis and aphasia. 5. Gastric tube dysfunction/malfunction. 6. Hypertension. 7. DNR. 8. Possible pneumonia 9. bacteremia and UTI bipap qhs adn prn distress nebs adn suction CXR in am IV abx per ID no fever adn WBC normal this am wound care and Fu with sugery recommendations TF pain control check Am labs labs better Subjective ROS Limited/Unobtainable: Yes Allergies: Coded Allergies: NO KNOWN ALLERGIES (Unverified Allergy, Unknown, 03/02/15) Subjective awake this AM tolerating TF used bipap at night' no cp nv or bleeding no fever noted doesnt get oob Objective Last 24 Hour Vital Signs Date Time Temp Pulse Resp B/P (MAP) Pulse Ox O2 Delivery O2 Flow Rate FiO2 06/02/18 05:33 84 20 100 Nasal Cannula 2.0 28 06/02/18 05:23 89 20 98 Bi-pap 40 06/02/18 05:22 89 20 98 06/02/18 05:07 98 138/95 06/02/18 04:00 Room Air 06/02/18 04:00 97.7 96 20 138/95 (109) 98 06/02/18 04:00 86 06/02/18 03:27 85 20 100 Facial 40 06/02/18 01:35 84 18 100 Bi-pap 40 06/02/18 01:24 89 22 99 Facial 40 06/02/18 01:22 83 18 99 Bi-pap 40 06/02/18 00:00 81 06/02/18 00:00 97.7 85 22 141/90 (107) 98 06/02/18 00:00 Room Air 06/01/18 23:12 89 22 99 Facial 40 06/01/18 21:00 92 123/90 06/01/18 20:52 123/90 06/01/18 20:00 Room Air 06/01/18 20:00 96 06/01/18 20:00 98.2 93 20 123/90 (101) 97 06/01/18 19:22 92 18 99 Nasal Cannula 2.0 28 06/01/18 19:09 89 18 98 Nasal Cannula 2.0 28 06/01/18 19:09 Nasal Cannula 2.0 28 06/01/18 19:09 98 Nasal Cannula 2.0 28 06/01/18 16:00 Nasal Cannula 2.0 06/01/18 16:00 103 06/01/18 16:00 97.9 87 24 131/92 (105) 97 06/01/18 15:04 104 120/87 06/01/18 13:06 134/74 06/01/18 13:00 98.1 120 24 134/74 (94) 98 06/01/18 12:50 125 06/01/18 12:12 110 18 100 Nasal Cannula 2.0 28 06/01/18 12:05 94 22 140/88 100 Simple Mask 6 06/01/18 12:02 111 18 100 Simple Mask 6.0 40 06/01/18 12:00 Nasal Cannula 2.0 06/01/18 11:50 102 22 139/106 98 Simple Mask 6 06/01/18 11:35 99 22 135/98 99 Simple Mask 8 06/01/18 11:25 101 22 124/79 99 Simple Mask 8 06/01/18 11:15 93 22 130/91 99 Simple Mask 8 06/01/18 11:10 93 22 128/83 99 Simple Mask 8 06/01/18 11:08 99.0 91 22 130/93 99 Simple Mask 8 06/01/18 11:08 97 18 100 06/01/18 11:07 86 16 100 06/01/18 08:00 97.9 96 28 135/92 (106) 93 06/01/18 08:00 Nasal Cannula 2.0 06/01/18 08:00 98 Intake and Output 06/01/18 06/02/18 19:00 07:00 Intake Total 510 ml 1585.667 ml Output Total 1025 ml Balance -515 ml 1585.667 ml Intake Free Water 50 ml 60 ml IV Total 400 ml 1325.667 ml Tube Feeding 60 ml 200 ml Output Urine Total 1000 ml Estimated Blood Loss 25 ml # Bowel Movements 1 General Appearance: cachetic HEENT: atraumatic, anicteric Respiratory/Chest: rhonchi Cardiovascular: normal rate, regular rhythm, edema Abdomen: soft, non tender, no organomegaly Skin: no rash Neurologic/Psychiatric: alert Microbiology Date/Time Source Procedure Growth Status 05/31/18 20:00 Blood Blood Culture - Preliminary NO GROWTH AFTER 24 HOURS Resulted 05/31/18 19:45 Blood Blood Culture - Preliminary NO GROWTH AFTER 24 HOURS Resulted 05/31/18 12:30 Wound Gram Stain - Final Resulted 05/31/18 12:30 Wound Culture - Preliminary Gram Negative Bacillus 1 Resulted 05/30/18 18:20 Indwelling Cath Urine Culture - Preliminary Gram Negative Ravindra Resulted Laboratory Tests 06/02/18 03:35: White Blood Count 7.2#, Red Blood Count 4.81, Hemoglobin 14.2, Hematocrit 41.7L , Mean Corpuscular Volume 87, Mean Corpuscular Hemoglobin 29.6, Mean Corpuscular Hemoglobin Concent 34.2, Red Cell Distribution Width 13.1, Platelet Count 156, Mean Platelet Volume 7.4, Neutrophils (%) (Auto) , Lymphocytes (%) ( Auto) , Monocytes (%) (Auto) , Eosinophils (%) (Auto) , Basophils (%) (Auto) , Neutrophils % (Manual) [Pending], Lymphocytes % (Manual) [Pending], Platelet Estimate [Pending], Platelet Morphology [Pending], Sodium Level 142, Potassium Level 3.2L, Chloride Level 109H, Carbon Dioxide Level 23, Anion Gap 10, Blood Urea Nitrogen 14, Creatinine 0.9, Estimat Glomerular Filtration Rate > 60, Glucose Level 205H, Calcium Level 8.9, Total Bilirubin 0.6, Aspartate Amino Transf (AST/SGOT) 12L, Alanine Aminotransferase (ALT/SGPT) 20, Alkaline Phosphatase 131H, Total Protein 7.3, Albumin 2.6L, Globulin 4.7, Albumin/ Globulin Ratio 0.6L Current Medications Medications (Trade) Dose Ordered Sig/Kehinde Route PRN Reason Start Time Stop Time Status Last Admin Dose Admin Acetaminophen (Tylenol) 650 mg Q6H PRN GT Mild Pain/Temp > 100.5 05/30/18 16:16 06/29/18 16:15 06/01/18 05:58 Acetaminophen/ Hydrocodone Bitart ([place] 5/325) 1 tab Q4H PRN GT PAIN 4-10 05/30/18 16:18 06/06/18 16:17 Albuterol Sulfate (Proventil) 2.5 mg Q6H PRN HHN Shortness of Breath 05/30/18 16:16 06/04/18 16:15 12/14/18 09:10 Albuterol/ Ipratropium (Albuterol/ Ipratropium) 3 ml STAT PRN HHN Shortness of Breath 06/01/18 11:30 06/06/18 11:29 06/02/18 05:23 Amikacin Protocol (Amikacin pharmacy to dose) 1 ea DAILY PRN MISC Per rx protocol 05/31/18 11:45 06/30/18 11:44 Amikacin Sulfate 1000 mg/Sodium Chloride 114 ml @ 114 mls/hr Q36H IV 05/31/18 15:00 06/07/18 14:59 06/02/18 02:11 Bisacodyl (Dulcolax) 10 mg DAILYPRN PRN RECTAL Constipation 05/30/18 16:16 06/29/18 16:15 Calcium Carbonate (Tums) 500 mg DAILY GT 05/31/18 09:00 06/30/18 08:59 06/01/18 13:08 Dextrose/Sodium Chloride 1,000 ml @ 100 mls/hr Q10H IV 05/30/18 16:16 06/29/18 16:15 06/01/18 18:38 Docusate Sodium (Colace) 100 mg DAILY GT 05/31/18 09:00 06/30/18 08:59 06/01/18 13:05 Enalapril Maleate (Vasotec) 20 mg Q12HR GT 05/30/18 21:00 06/29/18 20:59 06/01/18 20:52 Finasteride (Proscar) 5 mg DAILY ORAL 05/31/18 09:00 06/29/18 11:44 06/01/18 13:07 Ketotifen Fumarate (Zatidor) 1 drop Q12HR BOTH EYES 05/30/18 21:00 06/29/18 20:59 06/01/18 20:53 Lansoprazole (Prevacid) 30 mg DAILY GT 05/31/18 09:00 06/30/18 08:59 06/01/18 13:08 Levalbuterol HCl (Xopenex) 1.25 mg Q6HRT HHN 05/31/18 08:30 06/05/18 08:29 06/02/18 01:22 Metoprolol Tartrate (Lopressor) 100 mg Q8HR GT 05/30/18 22:00 06/29/18 12:59 06/02/18 05:07 Ondansetron HCl (Zofran) 4 mg Q6H PRN GT Nausea & Vomiting 05/30/18 16:19 06/29/18 16:18 Piperacillin Sod/ Tazobactam Sod 3.375 gm/Dextrose 100 ml @ 25 mls/hr EVERY 8 HOURS IVPB 05/30/18 22:00 06/04/18 21:59 06/02/18 05:04 Polyethylene Glycol (Miralax) 17 gm DAILY GT 05/31/18 09:00 06/29/18 12:59 06/01/18 13:05 Sennosides (Senokot) 8.6 mg QHS GT 05/30/18 21:00 06/29/18 12:29 05/30/18 20:10 Sodium Chloride (NaCl) 2 gm DAILY GT 05/31/18 09:00 06/29/18 12:59 06/01/18 13:07 Sodium Phosphate (Fleet's Sodium Phosl Enema) 133 ml DAILYPRN PRN RECTAL Constipation 05/30/18 16:18 06/29/18 16:17 Tamsulosin HCl (Flomax) 0.4 mg BEDTIME ORAL 06/01/18 21:00 07/01/18 20:59 06/01/18 20:53 Trazodone HCl (Desyrel) 12.5 mg QHS GT 05/30/18 21:00 06/29/18 20:59 06/01/18 20:53 Vancomycin HCl (Vanco rx to dose) 1 ea DAILY PRN MISC Per rx protocol 05/31/18 09:00 06/29/18 11:44 Vancomycin/Sodium Chloride 250 ml @ 166.667 mls/hr Q12H IVPB 06/02/18 04:00 06/07/18 03:59 06/02/18 04:16 Zinc Oxide (Zinc Oxide) 1 applic BEDTIME TOPIC 05/31/18 21:00 06/30/18 13:59 06/01/18 20:54 Indigo Alarcon DO Jun 02, 2018 06:37
[2018-06-02 08:00] VITALS: BP 135/97
[2018-06-02] MEDS: Docusate 100mg/10ml Liq GT SCH (08:36)
[2018-06-02] MEDS: Tums 500mg GT SCH (08:36)
[2018-06-02] MEDS: Sodium Chloride 1gm Tab GT SCH (08:36)
[2018-06-02] MEDS: Miralax 17gm pkt GT SCH (08:38)
[2018-06-02] MEDS: Ketotifen Fumarate 0.035% 5ml BOTH EYES SCH ×2 (09:02→21:25)
--- NOTE | 2018-06-02 09:12 | Urology Progress Note ---
Assessment/Plan Assessment/Plan 1. UTI with sepsis. 2. Right renal and ureteral calculi. 3. Hydronephrosis. 4. Hematuria. 5. Urinary retention. 6. BPH. 7. Neurogenic bladder. 8. Proteinuria. 9. Renal cyst. 10. POD # 1, cysto, right attempted ureteral stent urosepsis with obst right ureteral calc unable to place ureteral stent leukocytosis improved cont abx as ordered monitor clinically may need decompression of right kidney with nephrostomy tx of stones later once infection/sepsis resolved I personally irrigated quiles, no sig clots d/w 's Jere and Christoph Subjective Allergies: Coded Allergies: NO KNOWN ALLERGIES (Unverified Allergy, Unknown, 03/02/15) Subjective all noted, looks comfortable Objective Last 24 Hour Vital Signs Date Time Temp Pulse Resp B/P (MAP) Pulse Ox O2 Delivery O2 Flow Rate FiO2 06/02/18 08:37 135/97 06/02/18 08:00 97.0 89 20 135/97 (110) 97 06/02/18 07:04 88 18 99 Nasal Cannula 3.0 32 06/02/18 07:04 Nasal Cannula 2.0 28 06/02/18 07:04 98 Nasal Cannula 2.0 28 06/02/18 07:00 85 18 98 Nasal Cannula 3.0 32 06/02/18 05:33 84 20 100 Nasal Cannula 2.0 28 06/02/18 05:23 89 20 98 Bi-pap 40 06/02/18 05:22 89 20 98 06/02/18 05:07 98 138/95 06/02/18 04:00 Room Air 06/02/18 04:00 97.7 96 20 138/95 (109) 98 06/02/18 04:00 86 06/02/18 03:27 85 20 100 Facial 40 06/02/18 01:35 84 18 100 Bi-pap 40 06/02/18 01:24 89 22 99 Facial 40 06/02/18 01:22 83 18 99 Bi-pap 40 06/02/18 00:00 81 06/02/18 00:00 97.7 85 22 141/90 (107) 98 06/02/18 00:00 Room Air 06/01/18 23:12 89 22 99 Facial 40 06/01/18 21:00 92 123/90 06/01/18 20:52 123/90 06/01/18 20:00 Room Air 06/01/18 20:00 96 06/01/18 20:00 98.2 93 20 123/90 (101) 97 06/01/18 19:22 92 18 99 Nasal Cannula 2.0 28 06/01/18 19:09 89 18 98 Nasal Cannula 2.0 28 06/01/18 19:09 Nasal Cannula 2.0 28 06/01/18 19:09 98 Nasal Cannula 2.0 28 06/01/18 16:00 Nasal Cannula 2.0 06/01/18 16:00 103 06/01/18 16:00 97.9 87 24 131/92 (105) 97 06/01/18 15:04 104 120/87 06/01/18 13:06 134/74 06/01/18 13:00 98.1 120 24 134/74 (94) 98 06/01/18 12:50 125 06/01/18 12:12 110 18 100 Nasal Cannula 2.0 28 06/01/18 12:05 94 22 140/88 100 Simple Mask 6 06/01/18 12:02 111 18 100 Simple Mask 6.0 40 06/01/18 12:00 Nasal Cannula 2.0 06/01/18 11:50 102 22 139/106 98 Simple Mask 6 06/01/18 11:35 99 22 135/98 99 Simple Mask 8 06/01/18 11:25 101 22 124/79 99 Simple Mask 8 06/01/18 11:15 93 22 130/91 99 Simple Mask 8 06/01/18 11:10 93 22 128/83 99 Simple Mask 8 06/01/18 11:08 99.0 91 22 130/93 99 Simple Mask 8 06/01/18 11:08 97 18 100 06/01/18 11:07 86 16 100 Intake and Output 06/01/18 06/02/18 19:00 07:00 Intake Total 510 ml 1615.667 ml Output Total 1025 ml 1000 ml Balance -515 ml 615.667 ml Intake Free Water 50 ml 60 ml IV Total 400 ml 1325.667 ml Tube Feeding 60 ml 230 ml Output Urine Total 1000 ml 1000 ml Estimated Blood Loss 25 ml # Bowel Movements 1 Microbiology Date/Time Source Procedure Growth Status 05/31/18 20:00 Blood Blood Culture - Preliminary NO GROWTH AFTER 24 HOURS Resulted 05/31/18 12:30 Wound Gram Stain - Final Resulted 05/31/18 12:30 Wound Culture - Preliminary Gram Negative Bacillus 1 Resulted 05/30/18 05:28 Nasal Nares Influenza Types A,B Antigen (MICAELA) - Final Complete 05/30/18 18:20 Indwelling Cath Urine Culture - Final Providencia Stuartii Proteus Mirabilis Complete 05/30/18 05:00 Rectum - Final NO CARBAPENEM-RESISTANT ENTEROBACTERI... Complete Current Medications Medications (Trade) Dose Ordered Sig/Kehinde Route PRN Reason Start Time Stop Time Status Last Admin Dose Admin Acetaminophen (Tylenol) 650 mg Q6H PRN GT Mild Pain/Temp > 100.5 05/30/18 16:16 06/29/18 16:15 06/01/18 05:58 Acetaminophen/ Hydrocodone Bitart ([place] 5/325) 1 tab Q4H PRN GT PAIN 4-10 05/30/18 16:18 06/06/18 16:17 Albuterol Sulfate (Proventil) 2.5 mg Q6H PRN HHN Shortness of Breath 05/30/18 16:16 06/04/18 16:15 05/31/18 09:10 Albuterol/ Ipratropium (Albuterol/ Ipratropium) 3 ml STAT PRN HHN Shortness of Breath 06/01/18 11:30 06/06/18 11:29 06/02/18 05:23 Amikacin Protocol (Amikacin pharmacy to dose) 1 ea DAILY PRN MISC Per rx protocol 05/31/18 11:45 06/30/18 11:44 Amikacin Sulfate 1000 mg/Sodium Chloride 114 ml @ 114 mls/hr Q36H IV 05/31/18 15:00 06/07/18 14:59 06/02/18 02:11 Bisacodyl (Dulcolax) 10 mg DAILYPRN PRN RECTAL Constipation 05/30/18 16:16 06/29/18 16:15 Calcium Carbonate (Tums) 500 mg DAILY GT 05/31/18 09:00 06/30/18 08:59 06/02/18 08:36 Dextrose/Sodium Chloride 1,000 ml @ 100 mls/hr Q10H IV 05/30/18 16:16 06/29/18 16:15 06/01/18 18:38 Docusate Sodium (Colace) 100 mg DAILY GT 05/31/18 09:00 06/30/18 08:59 06/02/18 08:36 Enalapril Maleate (Vasotec) 20 mg Q12HR GT 05/30/18 21:00 06/29/18 20:59 06/02/18 08:37 Finasteride (Proscar) 5 mg DAILY ORAL 05/31/18 09:00 06/29/18 11:44 06/02/18 08:36 Ketotifen Fumarate (Zatidor) 1 drop Q12HR BOTH EYES 05/30/18 21:00 06/29/18 20:59 06/02/18 09:02 Lansoprazole (Prevacid) 30 mg DAILY GT 05/31/18 09:00 06/30/18 08:59 06/02/18 08:36 Levalbuterol HCl (Xopenex) 1.25 mg Q6HRT HHN 05/31/18 08:30 06/05/18 08:29 06/02/18 07:04 Metoprolol Tartrate (Lopressor) 100 mg Q8HR GT 05/30/18 22:00 06/29/18 12:59 06/02/18 05:07 Ondansetron HCl (Zofran) 4 mg Q6H PRN GT Nausea & Vomiting 05/30/18 16:19 06/29/18 16:18 Piperacillin Sod/ Tazobactam Sod 3.375 gm/Dextrose 100 ml @ 25 mls/hr EVERY 8 HOURS IVPB 05/30/18 22:00 06/04/18 21:59 06/02/18 05:04 Polyethylene Glycol (Miralax) 17 gm DAILY GT 05/31/18 09:00 06/29/18 12:59 06/01/18 13:05 Sennosides (Senokot) 8.6 mg QHS GT 05/30/18 21:00 06/29/18 12:29 05/30/18 20:10 Sodium Chloride (NaCl) 2 gm DAILY GT 05/31/18 09:00 06/29/18 12:59 06/02/18 08:36 Sodium Phosphate (Fleet's Sodium Phosl Enema) 133 ml DAILYPRN PRN RECTAL Constipation 05/30/18 16:18 06/29/18 16:17 Tamsulosin HCl (Flomax) 0.4 mg BEDTIME ORAL 06/01/18 21:00 07/01/18 20:59 06/01/18 20:53 Trazodone HCl (Desyrel) 12.5 mg QHS GT 05/30/18 21:00 06/29/18 20:59 06/01/18 20:53 Vancomycin HCl (Vanco rx to dose) 1 ea DAILY PRN MISC Per rx protocol 05/31/18 09:00 06/29/18 11:44 Vancomycin/Sodium Chloride 250 ml @ 166.667 mls/hr Q12H IVPB 06/02/18 04:00 06/07/18 03:59 06/02/18 04:16 Zinc Oxide (Zinc Oxide) 1 applic BEDTIME TOPIC 05/31/18 21:00 06/30/18 13:59 06/01/18 20:54 Laboratory Tests 06/02/18 03:35: White Blood Count 7.2#, Red Blood Count 4.81, Hemoglobin 14.2, Hematocrit 41.7L , Mean Corpuscular Volume 87, Mean Corpuscular Hemoglobin 29.6, Mean Corpuscular Hemoglobin Concent 34.2, Red Cell Distribution Width 13.1, Platelet Count 156, Mean Platelet Volume 7.4, Neutrophils (%) (Auto) , Lymphocytes (%) ( Auto) , Monocytes (%) (Auto) , Eosinophils (%) (Auto) , Basophils (%) (Auto) , Differential Total Cells Counted 100, Neutrophils % (Manual) 89H, Lymphocytes % (Manual) 3L, Monocytes % (Manual) 4, Eosinophils % (Manual) 0, Basophils % ( Manual) 0, Band Neutrophils 4, Platelet Estimate Adequate, Platelet Morphology Normal, Red Blood Cell Morphology Normal, Sodium Level 142, Potassium Level 3.2L , Chloride Level 109H, Carbon Dioxide Level 23, Anion Gap 10, Blood Urea Nitrogen 14, Creatinine 0.9, Estimat Glomerular Filtration Rate > 60, Glucose Level 205H, Calcium Level 8.9, Total Bilirubin 0.6, Aspartate Amino Transf (AST/ SGOT) 12L, Alanine Aminotransferase (ALT/SGPT) 20, Alkaline Phosphatase 131H, Total Protein 7.3, Albumin 2.6L, Globulin 4.7, Albumin/Globulin Ratio 0.6L Height (Feet): 5 Height (Inches): 4.00 Weight (Pounds): 160 Objective exam stable, quiles indwelling, urine blood-tinged Freedom Paris MD Jun 02, 2018 09:12
--- NOTE | 2018-06-02 09:12 | Diagnostic Imaging Report ---
EXAM: XR Chest, 1 View CLINICAL HISTORY: INFECT TECHNIQUE: Frontal view of the chest. COMPARISON: Chest x-ray 05/31/18 813 FINDINGS: Lungs: Vascular and interstitial prominence, slightly worse than prior study. No consolidation. Pleural space: Unremarkable. No pneumothorax. Heart: Cardiac memory. Mediastinum: Unremarkable. Bones/joints: Unremarkable. IMPRESSION: Vascular and interstitial prominence, slightly worse than prior study. Slightly worsening CHF.
[2018-06-02 12:30] VITALS: BP 130/89
[2018-06-02] MEDS: Meropenem 1 GM in NS 55 ML IVPB SCH (15:07)
[2018-06-02] MEDS ORDERED: Sterile Water Irrig 1000ml IRRIG ONE (15:50)
[2018-06-02] MEDS ORDERED: Tubing IV Secondary IV ONE (15:50)
[2018-06-02] MEDS ORDERED: NS 275ml ONE (15:50)
[2018-06-02] MEDS ORDERED: D5 1/2NS 1000ml IV ONE (15:50)
[2018-06-02] MEDS ORDERED: D5W 275ml ONE (15:50)
[2018-06-02 16:00] VITALS: BP 129/93
[2018-06-02 20:00] VITALS: BP 146/90
[2018-06-02] MEDS: Sennosides 8.6mg tab GT SCH (21:00)
[2018-06-02] MEDS: TraZODone HCl 25 mg tablet GT SCH (21:24)
[2018-06-02] MEDS: Tamsulosin 0.4mg cap ORAL SCH (21:24)
[2018-06-02] MEDS: Zinc Oxide Oint 2oz TOPIC SCH (21:26)
--- NOTE | 2018-06-02 21:38 | General Progress Note ---
Assessment/Plan Assessment/Plan Assessment (1) Malfunction of gastrostomy tube ICD Codes: K94.23 - Gastrostomy malfunction SNOMED: 791982036 (2) Ileus ICD Codes: K56.7 - Ileus, unspecified SNOMED: 561872341 (3) SBO (small bowel obstruction) ICD Codes: K56.609 - Unspecified intestinal obstruction, unspecified as to partial versus complete obstruction SNOMED: 416946753 (4) Constipation - resolved ICD Codes: K59.00 - Constipation, unspecified SNOMED: 65853904 (5) Malfunction of gastrostomy tube ICD Codes: K94.23 - Gastrostomy malfunction SNOMED: 948898210 (6) G-tube replacement (7) PEG (percutaneous endoscopic gastrostomy) adjustment/replacement/removal ICD Codes: Z43.1 - Encounter for attention to gastrostomy SNOMED: 502901090, 510090002 (8) Abdominal distension ICD Codes: R14.0 - Abdominal distension (gaseous) SNOMED: 39873033 Status: progressing Status Narrative Recommendations GTFs to goal turn patient q2 hours simethicone prn GT site care daily / prn >> zinc oxide daily Antibiotics Prevacid GT Bowel regimen Follow-up labs Subjective Allergies: Coded Allergies: NO KNOWN ALLERGIES (Unverified Allergy, Unknown, 03/02/15) Subjective Above noted NAD non communicative tolerating TF diarrhea per staffing coordinator (on laxatives) Objective Last 24 Hour Vital Signs Date Time Temp Pulse Resp B/P (MAP) Pulse Ox O2 Delivery O2 Flow Rate FiO2 06/02/18 21:25 86 140/90 06/02/18 21:25 140/90 06/02/18 20:00 98 Nasal Cannula 2.0 28 06/02/18 20:00 Nasal Cannula 2.0 28 06/02/18 20:00 90 18 98 Nasal Cannula 3.0 32 06/02/18 19:50 79 18 95 Nasal Cannula 3.0 32 06/02/18 16:00 86 06/02/18 16:00 97.2 84 22 129/93 (105) 96 06/02/18 16:00 Room Air Room Air 06/02/18 14:32 83 130/89 06/02/18 12:40 89 18 99 Nasal Cannula 3.0 32 06/02/18 12:32 75 18 96 Nasal Cannula 3.0 32 06/02/18 12:30 97.9 83 20 130/89 (103) 97 06/02/18 12:00 86 06/02/18 12:00 Room Air Room Air 06/02/18 08:37 135/97 06/02/18 08:00 Room Air Room Air 06/02/18 08:00 89 06/02/18 08:00 97.0 89 20 135/97 (110) 97 06/02/18 07:04 88 18 99 Nasal Cannula 3.0 32 06/02/18 07:04 Nasal Cannula 2.0 28 06/02/18 07:04 98 Nasal Cannula 2.0 28 06/02/18 07:00 85 18 98 Nasal Cannula 3.0 32 06/02/18 05:33 84 20 100 Nasal Cannula 2.0 28 06/02/18 05:23 89 20 98 Bi-pap 40 06/02/18 05:22 89 20 98 06/02/18 05:07 98 138/95 06/02/18 04:00 Room Air 06/02/18 04:00 97.7 96 20 138/95 (109) 98 06/02/18 04:00 86 06/02/18 03:27 85 20 100 Facial 40 06/02/18 01:35 84 18 100 Bi-pap 40 06/02/18 01:24 89 22 99 Facial 40 06/02/18 01:22 83 18 99 Bi-pap 40 06/02/18 00:00 81 06/02/18 00:00 97.7 85 22 141/90 (107) 98 06/02/18 00:00 Room Air 06/01/18 23:12 89 22 99 Facial 40 Intake and Output 06/01/18 06/02/18 19:00 07:00 Intake Total 510 ml 1773.167 ml Output Total 1025 ml 1000 ml Balance -515 ml 773.167 ml Intake Free Water 50 ml 60 ml IV Total 400 ml 1453.167 ml Tube Feeding 60 ml 260 ml Output Urine Total 1000 ml 1000 ml Estimated Blood Loss 25 ml # Bowel Movements 1 Laboratory Tests 06/02/18 03:35: White Blood Count 7.2#, Red Blood Count 4.81, Hemoglobin 14.2, Hematocrit 41.7L , Mean Corpuscular Volume 87, Mean Corpuscular Hemoglobin 29.6, Mean Corpuscular Hemoglobin Concent 34.2, Red Cell Distribution Width 13.1, Platelet Count 156, Mean Platelet Volume 7.4, Neutrophils (%) (Auto) , Lymphocytes (%) ( Auto) , Monocytes (%) (Auto) , Eosinophils (%) (Auto) , Basophils (%) (Auto) , Differential Total Cells Counted 100, Neutrophils % (Manual) 89H, Lymphocytes % (Manual) 3L, Monocytes % (Manual) 4, Eosinophils % (Manual) 0, Basophils % ( Manual) 0, Band Neutrophils 4, Platelet Estimate Adequate, Platelet Morphology Normal, Red Blood Cell Morphology Normal, Sodium Level 142, Potassium Level 3.2L , Chloride Level 109H, Carbon Dioxide Level 23, Anion Gap 10, Blood Urea Nitrogen 14, Creatinine 0.9, Estimat Glomerular Filtration Rate > 60, Glucose Level 205H, Calcium Level 8.9, Total Bilirubin 0.6, Aspartate Amino Transf (AST/ SGOT) 12L, Alanine Aminotransferase (ALT/SGPT) 20, Alkaline Phosphatase 131H, Total Protein 7.3, Albumin 2.6L, Globulin 4.7, Albumin/Globulin Ratio 0.6L Height (Feet): 5 Height (Inches): 4.00 Weight (Pounds): 160 Objective Elderly man NCAT supple scattered ronchi RR abd soft, (+) GT no edema OBS Trip David MD Jun 02, 2018 21:38
[2018-06-03] VITALS: BP 138/78
[2018-06-03] MEDS: Meropenem 1 GM in NS 55 ML IVPB SCH ×3 (00:27→18:43)
[2018-06-03] MEDS: Levalbuterol Inh UD 1.25mg/0.5ml HHN SCH ×4 (02:30→19:25)
[2018-06-03 03:23] LABS: ANION GAP 8 mmol/L (5-15); BLOOD UREA NITROGEN 11 mg/dL (7-18); CALCIUM 8.8 MG/DL (8.5-10.1); CARBON DIOXIDE 25 MMOL/L (21-32); CHLORIDE 107 MMOL/L (98-107); CREATININE 0.7 MG/DL (0.55-1.30); POTASSIUM 3.1 MMOL/L (3.5-5.1); SODIUM 140 MMOL/L (136-145)
[2018-06-03] MEDS: Vancomycin 750mg/NS 250ml 250 ML IVPB SCH (03:24)
[2018-06-03 03:31] VITALS: BP 147/99
[2018-06-03] MEDS ORDERED: Vancomycin 1gm in D5W 275ml IVPB SCH ×2 (04:00→16:00)
[2018-06-03 08:00] VITALS: BP 143/80
--- NOTE | 2018-06-03 08:53 | Pulmonology Progress Note ---
Assessment/Plan Assessment/Plan 1. G neg sepsis due to UTI 2. Abdominal distention, improved 3. Acute respiratory failure, requiring BiPAP, resolved 4. History of stroke with right hemiparesis and aphasia. 5. Gastric tube dysfunction/malfunction. 6. Hypertension. 7. DNR. 8. R ureter obstruction due to stone, failed stent placement dc BiPAP no fever, taper abx per sensi labs better, WBC normal dc to snf Subjective ROS Limited/Unobtainable: Yes Allergies: Coded Allergies: NO KNOWN ALLERGIES (Unverified Allergy, Unknown, 03/02/15) Objective Last 24 Hour Vital Signs Date Time Temp Pulse Resp B/P (MAP) Pulse Ox O2 Delivery O2 Flow Rate FiO2 06/03/18 07:39 84 18 100 Bi-pap 40 06/03/18 07:31 Nasal Cannula 2.0 28 06/03/18 07:31 76 18 97 Nasal Cannula 2.0 28 06/03/18 07:31 98 Nasal Cannula 2.0 28 06/03/18 05:17 74 21 100 Full Face 40 06/03/18 05:05 99 147/99 06/03/18 04:00 Room Air Room Air 06/03/18 04:00 89 06/03/18 03:31 97.7 99 19 147/99 (115) 96 06/03/18 03:30 71 18 98 Facial 40 06/03/18 02:00 82 20 100 Bi-pap 40 06/03/18 01:50 77 18 98 Bi-pap 40 06/03/18 01:30 72 18 100 Facial 40 06/03/18 00:00 Room Air Room Air 06/03/18 00:00 97.7 85 18 138/78 (98) 96 06/02/18 23:30 80 20 100 Facial 40 06/02/18 21:25 86 140/90 06/02/18 21:25 140/90 06/02/18 20:00 85 06/02/18 20:00 Room Air Room Air 06/02/18 20:00 98 Nasal Cannula 2.0 28 06/02/18 20:00 97.5 89 20 146/90 (108) 96 06/02/18 20:00 Nasal Cannula 2.0 28 06/02/18 20:00 90 18 98 Nasal Cannula 3.0 32 06/02/18 19:50 79 18 95 Nasal Cannula 3.0 32 06/02/18 16:00 86 06/02/18 16:00 97.2 84 22 129/93 (105) 96 06/02/18 16:00 Room Air Room Air 06/02/18 14:32 83 130/89 06/02/18 12:40 89 18 99 Nasal Cannula 3.0 32 06/02/18 12:32 75 18 96 Nasal Cannula 3.0 32 06/02/18 12:30 97.9 83 20 130/89 (103) 97 06/02/18 12:00 86 06/02/18 12:00 Room Air Room Air Intake and Output 06/02/18 06/03/18 19:00 07:00 Intake Total 1195.0 ml 900 ml Output Total 1400 ml 2000 ml Balance -205.0 ml -1100 ml Intake Free Water 130 ml 60 ml IV Total 455.0 ml 210 ml Tube Feeding 610 ml 630 ml Output Urine Total 1400 ml 2000 ml # Bowel Movements 2 1 General Appearance: no acute distress Respiratory/Chest: lungs clear Cardiovascular: normal rate Microbiology Date/Time Source Procedure Growth Status 05/31/18 20:00 Blood Blood Culture - Preliminary NO GROWTH AFTER 48 HOURS Resulted 05/31/18 19:45 Blood Blood Culture - Preliminary NO GROWTH AFTER 48 HOURS Resulted 05/31/18 12:30 Wound Gram Stain - Final Complete 05/31/18 12:30 Wound Culture - Final Escherichia Coli - Esbl Debi Albicans Complete Laboratory Tests 06/03/18 02:55: Sodium Level 140, Potassium Level 3.1L, Chloride Level 107, Carbon Dioxide Level 25, Anion Gap 8, Blood Urea Nitrogen 11, Creatinine 0.7, Estimat Glomerular Filtration Rate > 60, Glucose Level 101#, Calcium Level 8.8, Vancomycin Level Trough 11.6 Current Medications Medications (Trade) Dose Ordered Sig/Kehinde Route PRN Reason Start Time Stop Time Status Last Admin Dose Admin Acetaminophen (Tylenol) 650 mg Q6H PRN GT Mild Pain/Temp > 100.5 05/30/18 16:16 06/29/18 16:15 06/01/18 05:58 Acetaminophen/ Hydrocodone Bitart ([place] 5/325) 1 tab Q4H PRN GT PAIN 4-10 05/30/18 16:18 06/06/18 16:17 Albuterol Sulfate (Proventil) 2.5 mg Q6H PRN HHN Shortness of Breath 05/30/18 16:16 06/04/18 16:15 05/31/18 09:10 Albuterol/ Ipratropium (Albuterol/ Ipratropium) 3 ml STAT PRN HHN Shortness of Breath 06/01/18 11:30 06/06/18 11:29 06/02/18 05:23 Amikacin Protocol (Amikacin pharmacy to dose) 1 ea DAILY PRN MISC Per rx protocol 05/31/18 11:45 06/30/18 11:44 Amikacin Sulfate 1000 mg/Sodium Chloride 114 ml @ 114 mls/hr Q36H IV 05/31/18 15:00 06/07/18 14:59 06/02/18 02:11 Bisacodyl (Dulcolax) 10 mg DAILYPRN PRN RECTAL Constipation 05/30/18 16:16 06/29/18 16:15 Calcium Carbonate (Tums) 500 mg DAILY GT 05/31/18 09:00 06/30/18 08:59 06/02/18 08:36 Docusate Sodium (Colace) 100 mg DAILY GT 05/31/18 09:00 06/30/18 08:59 06/02/18 08:36 Enalapril Maleate (Vasotec) 20 mg Q12HR GT 05/30/18 21:00 06/29/18 20:59 06/02/18 21:25 Finasteride (Proscar) 5 mg DAILY ORAL 05/31/18 09:00 06/29/18 11:44 06/02/18 08:36 Ketotifen Fumarate (Zatidor) 1 drop Q12HR BOTH EYES 05/30/18 21:00 06/29/18 20:59 06/02/18 21:25 Lansoprazole (Prevacid) 30 mg DAILY GT 05/31/18 09:00 06/30/18 08:59 06/02/18 08:36 Levalbuterol HCl (Xopenex) 1.25 mg Q6HRT HHN 05/31/18 08:30 06/05/18 08:29 06/03/18 07:31 Meropenem 1 gm/ Sodium Chloride 55 ml @ 110 mls/hr Q8H IVPB 06/02/18 16:00 06/07/18 15:59 06/03/18 00:27 Metoprolol Tartrate (Lopressor) 100 mg Q8HR GT 05/30/18 22:00 06/29/18 12:59 06/03/18 05:05 Ondansetron HCl (Zofran) 4 mg Q6H PRN GT Nausea & Vomiting 05/30/18 16:19 06/29/18 16:18 Polyethylene Glycol (Miralax) 17 gm DAILY GT 05/31/18 09:00 06/29/18 12:59 06/01/18 13:05 Sennosides (Senokot) 8.6 mg QHS GT 05/30/18 21:00 06/29/18 12:29 05/30/18 20:10 Sodium Chloride (NaCl) 2 gm DAILY GT 05/31/18 09:00 06/29/18 12:59 06/02/18 08:36 Sodium Phosphate (Fleet's Sodium Phosl Enema) 133 ml DAILYPRN PRN RECTAL Constipation 05/30/18 16:18 06/29/18 16:17 Tamsulosin HCl (Flomax) 0.4 mg BEDTIME ORAL 06/01/18 21:00 07/01/18 20:59 06/02/18 21:24 Trazodone HCl (Desyrel) 12.5 mg QHS GT 05/30/18 21:00 06/29/18 20:59 06/02/18 21:24 Vancomycin HCl (Vanco rx to dose) 1 ea DAILY PRN MISC Per rx protocol 05/31/18 09:00 06/29/18 11:44 Vancomycin HCl 1 gm/Dextrose 275 ml @ 183.708 mls/hr Q12H IVPB 06/03/18 16:00 06/08/18 15:59 Zinc Oxide (Zinc Oxide) 1 applic BEDTIME TOPIC 05/31/18 21:00 06/30/18 13:59 06/02/18 21:26 Jose J Oquendo MD Jun 03, 2018 08:53
[2018-06-03] MEDS: Sodium Chloride 1gm Tab GT SCH (09:19)
[2018-06-03] MEDS: Tums 500mg GT SCH (09:19)
[2018-06-03] MEDS: Docusate 100mg/10ml Liq GT SCH (09:19)
[2018-06-03] MEDS: Miralax 17gm pkt GT SCH (09:28)
[2018-06-03] MEDS: Ketotifen Fumarate 0.035% 5ml BOTH EYES SCH (09:32)
--- NOTE | 2018-06-03 11:15 | Urology Progress Note ---
Assessment/Plan Assessment/Plan 1. UTI with sepsis. 2. Right renal and ureteral calculi. 3. Hydronephrosis. 4. Hematuria. 5. Urinary retention. 6. BPH. 7. Neurogenic bladder. 8. Proteinuria. 9. Renal cyst. 10. POD # 2, cysto, right attempted ureteral stent urosepsis with obst right ureteral calc unable to place ureteral stent leukocytosis improved cont abx as ordered, per ID monitor clinically may need decompression of right kidney with nephrostomy tx of stones later once infection/sepsis resolved Hand irrigate quiles PRN f/u on repeat blood cx Subjective Allergies: Coded Allergies: NO KNOWN ALLERGIES (Unverified Allergy, Unknown, 03/02/15) Subjective all noted, looks comfortable Objective Last 24 Hour Vital Signs Date Time Temp Pulse Resp B/P (MAP) Pulse Ox O2 Delivery O2 Flow Rate FiO2 06/03/18 09:27 143/80 06/03/18 08:00 87 06/03/18 07:39 84 18 100 Bi-pap 40 06/03/18 07:31 Nasal Cannula 2.0 28 06/03/18 07:31 76 18 97 Nasal Cannula 2.0 28 06/03/18 07:31 98 Nasal Cannula 2.0 28 06/03/18 05:17 74 21 100 Full Face 40 06/03/18 05:05 99 147/99 06/03/18 04:00 Room Air Room Air 06/03/18 04:00 89 06/03/18 03:31 97.7 99 19 147/99 (115) 96 06/03/18 03:30 71 18 98 Facial 40 06/03/18 02:00 82 20 100 Bi-pap 40 06/03/18 01:50 77 18 98 Bi-pap 40 06/03/18 01:30 72 18 100 Facial 40 06/03/18 00:00 Room Air Room Air 06/03/18 00:00 97.7 85 18 138/78 (98) 96 06/02/18 23:30 80 20 100 Facial 40 06/02/18 21:25 86 140/90 06/02/18 21:25 140/90 06/02/18 20:00 85 06/02/18 20:00 Room Air Room Air 06/02/18 20:00 98 Nasal Cannula 2.0 28 06/02/18 20:00 97.5 89 20 146/90 (108) 96 06/02/18 20:00 Nasal Cannula 2.0 28 06/02/18 20:00 90 18 98 Nasal Cannula 3.0 32 06/02/18 19:50 79 18 95 Nasal Cannula 3.0 32 18 16:00 86 06/02/18 16:00 97.2 84 22 129/93 (105) 96 06/02/18 16:00 Room Air Room Air 06/02/18 14:32 83 130/89 06/02/18 12:40 89 18 99 Nasal Cannula 3.0 32 06/02/18 12:32 75 18 96 Nasal Cannula 3.0 32 06/02/18 12:30 97.9 83 20 130/89 (103) 97 06/02/18 12:00 86 06/02/18 12:00 Room Air Room Air Intake and Output 06/02/18 06/03/18 19:00 07:00 Intake Total 1195.0 ml 900 ml Output Total 1400 ml 2000 ml Balance -205.0 ml -1100 ml Intake Free Water 130 ml 60 ml IV Total 455.0 ml 210 ml Tube Feeding 610 ml 630 ml Output Urine Total 1400 ml 2000 ml # Bowel Movements 2 1 Microbiology Date/Time Source Procedure Growth Status 05/31/18 20:00 Blood Blood Culture - Preliminary NO GROWTH AFTER 48 HOURS Resulted 05/31/18 12:30 Wound Gram Stain - Final Complete 05/31/18 12:30 Wound Culture - Final Escherichia Coli - Esbl Debi Albicans Complete 05/30/18 05:28 Nasal Nares Influenza Types A,B Antigen (MICAELA) - Final Complete 05/30/18 18:20 Indwelling Cath Urine Culture - Final Providencia Stuartii Proteus Mirabilis Complete 05/30/18 05:00 Rectum - Final NO CARBAPENEM-RESISTANT ENTEROBACTERI... Complete Current Medications Medications (Trade) Dose Ordered Sig/Kehinde Route PRN Reason Start Time Stop Time Status Last Admin Dose Admin Acetaminophen (Tylenol) 650 mg Q6H PRN GT Mild Pain/Temp > 100.5 05/30/18 16:16 06/29/18 16:15 06/01/18 05:58 Acetaminophen/ Hydrocodone Bitart ([place] 5/325) 1 tab Q4H PRN GT PAIN 4-10 05/30/18 16:18 06/06/18 16:17 Albuterol Sulfate (Proventil) 2.5 mg Q6H PRN HHN Shortness of Breath 05/30/18 16:16 06/04/18 16:15 05/31/18 09:10 Albuterol/ Ipratropium (Albuterol/ Ipratropium) 3 ml STAT PRN HHN Shortness of Breath 06/01/18 11:30 06/06/18 11:29 06/02/18 05:23 Amikacin Protocol (Amikacin pharmacy to dose) 1 ea DAILY PRN MISC Per rx protocol 05/31/18 11:45 06/30/18 11:44 Amikacin Sulfate 1000 mg/Sodium Chloride 114 ml @ 114 mls/hr Q36H IV 05/31/18 15:00 06/07/18 14:59 06/02/18 02:11 Bisacodyl (Dulcolax) 10 mg DAILYPRN PRN RECTAL Constipation 05/30/18 16:16 06/29/18 16:15 Calcium Carbonate (Tums) 500 mg DAILY GT 05/31/18 09:00 06/30/18 08:59 06/03/18 09:19 Docusate Sodium (Colace) 100 mg DAILY GT 05/31/18 09:00 06/30/18 08:59 06/03/18 09:19 Enalapril Maleate (Vasotec) 20 mg Q12HR GT 05/30/18 21:00 06/29/18 20:59 06/03/18 09:27 Finasteride (Proscar) 5 mg DAILY ORAL 05/31/18 09:00 06/29/18 11:44 06/03/18 09:19 Ketotifen Fumarate (Zatidor) 1 drop Q12HR BOTH EYES 05/30/18 21:00 06/29/18 20:59 06/03/18 09:32 Lansoprazole (Prevacid) 30 mg DAILY GT 05/31/18 09:00 06/30/18 08:59 06/03/18 09:27 Levalbuterol HCl (Xopenex) 1.25 mg Q6HRT HHN 05/31/18 08:30 06/05/18 08:29 06/03/18 07:31 Meropenem 1 gm/ Sodium Chloride 55 ml @ 110 mls/hr Q8H IVPB 06/02/18 16:00 06/07/18 15:59 06/03/18 09:18 Metoprolol Tartrate (Lopressor) 100 mg Q8HR GT 05/30/18 22:00 06/29/18 12:59 06/03/18 05:05 Ondansetron HCl (Zofran) 4 mg Q6H PRN GT Nausea & Vomiting 05/30/18 16:19 06/29/18 16:18 Polyethylene Glycol (Miralax) 17 gm DAILY GT 05/31/18 09:00 06/29/18 12:59 06/03/18 09:28 Potassium Chloride (K-Dur) 20 meq BID GT 06/03/18 09:15 07/03/18 09:14 06/03/18 09:19 Sennosides (Senokot) 8.6 mg QHS GT 05/30/18 21:00 06/29/18 12:29 05/30/18 20:10 Sodium Chloride (NaCl) 2 gm DAILY GT 05/31/18 09:00 06/29/18 12:59 06/03/18 09:19 Sodium Phosphate (Fleet's Sodium Phosl Enema) 133 ml DAILYPRN PRN RECTAL Constipation 05/30/18 16:18 06/29/18 16:17 Tamsulosin HCl (Flomax) 0.4 mg BEDTIME ORAL 06/01/18 21:00 07/01/18 20:59 06/02/18 21:24 Trazodone HCl (Desyrel) 12.5 mg QHS GT 05/30/18 21:00 06/29/18 20:59 06/02/18 21:24 Vancomycin HCl (Vanco rx to dose) 1 ea DAILY PRN MISC Per rx protocol 05/31/18 09:00 06/29/18 11:44 Vancomycin HCl 1 gm/Dextrose 275 ml @ 183.708 mls/hr Q12H IVPB 06/03/18 16:00 06/08/18 15:59 Zinc Oxide (Zinc Oxide) 1 applic BEDTIME TOPIC 05/31/18 21:00 06/30/18 13:59 06/02/18 21:26 Laboratory Tests 06/03/18 02:55: Sodium Level 140, Potassium Level 3.1L, Chloride Level 107, Carbon Dioxide Level 25, Anion Gap 8, Blood Urea Nitrogen 11, Creatinine 0.7, Estimat Glomerular Filtration Rate > 60, Glucose Level 101#, Calcium Level 8.8, Vancomycin Level Trough 11.6 Height (Feet): 5 Height (Inches): 4.00 Weight (Pounds): 160 Objective exam stable, quiles indwelling, urine clearing Freedom Paris MD Jun 03, 2018 11:15
--- NOTE | 2018-06-03 11:41 | GI Progress Note ---
Assessment/Plan Problems: (1) Malfunction of gastrostomy tube ICD Codes: K94.23 - Gastrostomy malfunction SNOMED: 109622269 (2) Ileus ICD Codes: K56.7 - Ileus, unspecified SNOMED: 854450343 (3) SBO (small bowel obstruction) ICD Codes: K56.609 - Unspecified intestinal obstruction, unspecified as to partial versus complete obstruction SNOMED: 846746777 (4) Constipated ICD Codes: K59.00 - Constipation, unspecified SNOMED: 98949199 (5) Malfunction of gastrostomy tube ICD Codes: K94.23 - Gastrostomy malfunction SNOMED: 361650859 (6) G-tube replacement (7) PEG (percutaneous endoscopic gastrostomy) adjustment/replacement/removal ICD Codes: Z43.1 - Encounter for attention to gastrostomy SNOMED: 754103762, 097245661 (8) Abdominal distension ICD Codes: R14.0 - Abdominal distension (gaseous) SNOMED: 12002085 Status: unchanged Status Narrative Discussed with Dr. Parra. Assessment/Plan Differential diagnosis noted above GT changed to 24 kiswahili, KUB for confirmation. Reviewed abdominal pelvis CT >> No bowel obstruction free fluid or free air identified. GTFs to goal turn patient q2 hours simethicone prn GT site care daily / prn >> zinc oxide daily Antibiotics Prevacid GT Bowel regimen Follow-up labs The patient was seen and examined at bedside and all new and available data was reviewed in the patients chart. I agree with the above findings, impression and plan. (Patient seen earlier today. Signature stamp does not reflect patient encounter time.). - Homar Parra MD Subjective Subjective limited Objective Last 24 Hour Vital Signs Date Time Temp Pulse Resp B/P (MAP) Pulse Ox O2 Delivery O2 Flow Rate FiO2 06/03/18 09:27 143/80 06/03/18 08:00 87 06/03/18 07:39 84 18 100 Bi-pap 40 06/03/18 07:31 Nasal Cannula 2.0 28 06/03/18 07:31 76 18 97 Nasal Cannula 2.0 28 06/03/18 07:31 98 Nasal Cannula 2.0 28 06/03/18 05:17 74 21 100 Full Face 40 06/03/18 05:05 99 147/99 06/03/18 04:00 Room Air Room Air 06/03/18 04:00 89 06/03/18 03:31 97.7 99 19 147/99 (115) 96 06/03/18 03:30 71 18 98 Facial 40 06/03/18 02:00 82 20 100 Bi-pap 40 06/03/18 01:50 77 18 98 Bi-pap 40 06/03/18 01:30 72 18 100 Facial 40 06/03/18 00:00 Room Air Room Air 06/03/18 00:00 97.7 85 18 138/78 (98) 96 06/02/18 23:30 80 20 100 Facial 40 06/02/18 21:25 86 140/90 06/02/18 21:25 140/90 06/02/18 20:00 85 06/02/18 20:00 Room Air Room Air 06/02/18 20:00 98 Nasal Cannula 2.0 28 06/02/18 20:00 97.5 89 20 146/90 (108) 96 06/02/18 20:00 Nasal Cannula 2.0 28 06/02/18 20:00 90 18 98 Nasal Cannula 3.0 32 06/02/18 19:50 79 18 95 Nasal Cannula 3.0 32 06/02/18 16:00 86 06/02/18 16:00 97.2 84 22 129/93 (105) 96 06/02/18 16:00 Room Air Room Air 06/02/18 14:32 83 130/89 06/02/18 12:40 89 18 99 Nasal Cannula 3.0 32 06/02/18 12:32 75 18 96 Nasal Cannula 3.0 32 06/02/18 12:30 97.9 83 20 130/89 (103) 97 06/02/18 12:00 86 06/02/18 12:00 Room Air Room Air Intake and Output 06/02/18 06/03/18 19:00 07:00 Intake Total 1195.0 ml 900 ml Output Total 1400 ml 2000 ml Balance -205.0 ml -1100 ml Intake Free Water 130 ml 60 ml IV Total 455.0 ml 210 ml Tube Feeding 610 ml 630 ml Output Urine Total 1400 ml 2000 ml # Bowel Movements 2 1 Laboratory Tests Test 06/03/18 02:55 Sodium Level 140 MMOL/L (136-145) Potassium Level 3.1 MMOL/L (3.5-5.1) L Chloride Level 107 MMOL/L (98-107) Carbon Dioxide Level 25 MMOL/L (21-32) Anion Gap 8 mmol/L (5-15) Blood Urea Nitrogen 11 mg/dL (7-18) Creatinine 0.7 MG/DL (0.55-1.30) Estimat Glomerular Filtration Rate > 60 mL/min (>60) Glucose Level 101 MG/DL (74-106) # Calcium Level 8.8 MG/DL (8.5-10.1) Vancomycin Level Trough 11.6 ug/mL (5.0-12.0) Height (Feet): 5 Height (Inches): 4.00 Weight (Pounds): 160 General Appearance: WD/WN, no apparent distress, alert Cardiovascular: normal rate Respiratory/Chest: normal breath sounds, no respiratory distress Abdominal Exam: normal bowel sounds, non tender, soft, distended, GT site - c/d /i Extremities: non-tender Raudel Joyce NP Jun 03, 2018 11:41
[2018-06-03 12:00] VITALS: BP 136/98
[2018-06-03 16:00] VITALS: BP 139/98
[2018-06-03] MEDS: Amikacin 1,000 MG in NS 110 ML IV SCH (16:27)
--- NOTE | 2018-06-03 16:29 | Diagnostic Imaging Report ---
INDICATION: Pain, intraoperative TECHNIQUE: Intraoperative imaging Fluoroscopy time: 47.9 seconds Total dose: 13.5 mGy Total number of images: 6 COMPARISON: None FINDINGS: Intraoperative images demonstrate opacification of the right ureter and bladder IMPRESSION: Intraoperative images as described
--- NOTE | 2018-06-03 18:02 | Infectious Diseases Prog Note ---
Assessment/Plan Assessment/Plan ASSESSMENT AND PLAN: 1. esbl e.coli bacteremia, sepsis, sirs, esbl e.coli/providencia/proteus uti, nephrolithiasis/hydronephrosis, ? e.coli g-tube infection, fevers, leukocytosis - meropenem x 10 days more, discontinue other antibiotics - clinically improved, fevers better, leukocytosis persists. surveillance blood cultures negative - check cultures, monitor labs, f/u chest x-ray, chest x-ray with chf - d/w RN about antibiotics - see multiple orders for abx change 2. The patient has history of dysphagia and G-tube 3. Hypernatremia. 4. Shortness of breath, chf - clinically better 5. The patient has history of CVA and aspiration risk. 6. Dysphagia. G-tube. 7. Essential hypertension. Blood pressure treatment per Dr. Oquendo. 8. Atherosclerotic heart disease and angina pectoris history. 9. COPD. 10. BPH. 11. History of urinary retention. 12. No history diabetes. 13. No known allergies. 14. Social history is negative. 15. Family history is noncontributory. 16. MAR was noted. 17. Case was discussed with RN. 18. The patient is now in the step-down unit care. 19. Case was discussed with Dr. Oquendo. 20. Continue treatment per primary consultants. 21. Notes and records were noted. 22. Skin care protocol. 23. Orders were entered. 24. vre colonization and isolation Subjective Constitutional: Reports: fatigue, other - more alert ; Denies: fever HEENT: Reports: congestion - less Respiratory: Reports: shortness of breath - less Cardiovascular: Reports: other - no pressors; Denies: chest pain Gastrointestinal/Abdominal: Denies: nausea, vomiting, diarrhea Genitourinary: Reports: other - + quiles Neurologic: Reports: other - no sz Psychiatric: Reports: other - na Skin: Denies: rash Hematologic: Denies: bleeding Musculoskeletal: Denies: pain Allergies: Coded Allergies: NO KNOWN ALLERGIES (Unverified Allergy, Unknown, 03/02/15) Objective Vital Signs Last 24 Hour Vital Signs Date Time Temp Pulse Resp B/P (MAP) Pulse Ox O2 Delivery O2 Flow Rate FiO2 06/03/18 16:00 Room Air 2.0 Nasal Cannula 06/03/18 16:00 98.1 85 22 139/98 (112) 98 06/03/18 13:49 90 136/98 06/03/18 12:47 78 18 100 Nasal Cannula 2.0 28 06/03/18 12:39 78 18 98 Nasal Cannula 3.0 32 06/03/18 12:00 98.2 90 22 136/98 (111) 98 06/03/18 12:00 Room Air 2.0 Nasal Cannula 06/03/18 09:27 143/80 06/03/18 08:00 87 06/03/18 08:00 98.1 87 20 143/80 (101) 100 06/03/18 08:00 Room Air 2.0 Nasal Cannula 06/03/18 07:39 84 18 100 Nasal Cannula 2.0 28 06/03/18 07:31 Nasal Cannula 2.0 28 06/03/18 07:31 76 18 97 Nasal Cannula 2.0 28 06/03/18 07:31 98 Nasal Cannula 2.0 28 06/03/18 05:17 74 21 100 Full Face 40 06/03/18 05:05 99 147/99 06/03/18 04:00 Room Air Room Air 06/03/18 04:00 89 06/03/18 03:31 97.7 99 19 147/99 (115) 96 06/03/18 03:30 71 18 98 Facial 40 06/03/18 02:00 82 20 100 Bi-pap 40 06/03/18 01:50 77 18 98 Bi-pap 40 06/03/18 01:30 72 18 100 Facial 40 06/03/18 00:00 Room Air Room Air 06/03/18 00:00 97.7 85 18 138/78 (98) 96 06/02/18 23:30 80 20 100 Facial 40 06/02/18 21:25 86 140/90 06/02/18 21:25 140/90 06/02/18 20:00 85 06/02/18 20:00 Room Air Room Air 06/02/18 20:00 98 Nasal Cannula 2.0 28 06/02/18 20:00 97.5 89 20 146/90 (108) 96 06/02/18 20:00 Nasal Cannula 2.0 28 06/02/18 20:00 90 18 98 Nasal Cannula 3.0 32 06/02/18 19:50 79 18 95 Nasal Cannula 3.0 32 Height (Feet): 5 Height (Inches): 4.00 Weight (Pounds): 160 General Appearance: no acute distress HEENT: normocephalic, atraumatic, anicteric, mucous membranes moist, EOMI, pharynx normal, supple Respiratory/Chest: crackles/rales, rhonchi - bilaterally Cardiovascular: normal rate, regular rhythm, no gallop/murmur, no JVD Abdomen: normal bowel sounds, soft, non tender, no organomegaly, distended Genitourinary: other - + quiles - urine slt cloudy Extremities: no cyanosis Skin: no rash 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 Heart is enlarged. Lung volumes are low. The bones are osteopenic. There are erosive changes involving the humeral head on the right suspected. These correlate clinically. IMPRESSION: Moderate CHF. Right humeral head erosions. Further evaluation recommended CT abdomen and pelvis - IMPRESSION: Mild right hydroureteronephrosis secondary to a 5 mm obstructing stone in the distal right ureter. Additional 4 mm nonobstructive stone in the right kidney. Left renal cyst Gastrostomy Basilar atelectasis and/or scarring Hiatal hernia. Quiles catheter. Thickening of the wall the urinary bladder noted. Cystitis not excluded. [facility] has communicated the preliminary results to the Emergency Department. Their findings are largely concordant with this report. Chest x-ray - 06/02/18 - IMPRESSION: Vascular and interstitial prominence, slightly worse than prior study. Slightly worsening CHF. Labs Test 06/01/18 02:05 06/01/18 03:00 06/02/18 03:35 06/03/18 02:55 Vancomycin Level Trough 11.1 ug/mL (5.0-12.0) 11.6 ug/mL (5.0-12.0) White Blood Count 15.4 K/UL (4.8-10.8) 7.2 K/UL (4.8-10.8) Red Blood Count 4.71 M/UL (4.70-6.10) 4.81 M/UL (4.70-6.10) Hemoglobin 14.1 G/DL (14.2-18.0) 14.2 G/DL (14.2-18.0) Hematocrit 40.8 % (42.0-52.0) 41.7 % (42.0-52.0) Mean Corpuscular Volume 87 FL (80-99) 87 FL (80-99) Mean Corpuscular Hemoglobin 29.9 PG (27.0-31.0) 29.6 PG (27.0-31.0) Mean Corpuscular Hemoglobin Concent 34.5 G/DL (32.0-36.0) 34.2 G/DL (32.0-36.0) Red Cell Distribution Width 12.7 % (11.6-14.8) 13.1 % (11.6-14.8) Platelet Count 168 K/UL (150-450) 156 K/UL (150-450) Mean Platelet Volume 7.7 FL (6.5-10.1) 7.4 FL (6.5-10.1) Neutrophils (%) (Auto) % (45.0-75.0) % (45.0-75.0) Lymphocytes (%) (Auto) % (20.0-45.0) % (20.0-45.0) Monocytes (%) (Auto) % (1.0-10.0) % (1.0-10.0) Eosinophils (%) (Auto) % (0.0-3.0) % (0.0-3.0) Basophils (%) (Auto) % (0.0-2.0) % (0.0-2.0) Differential Total Cells Counted 100 100 Neutrophils % (Manual) 71 % (45-75) 89 % (45-75) Lymphocytes % (Manual) 7 % (20-45) 3 % (20-45) Monocytes % (Manual) 4 % (1-10) 4 % (1-10) Eosinophils % (Manual) 0 % (0-3) 0 % (0-3) Basophils % (Manual) 0 % (0-2) 0 % (0-2) Band Neutrophils 18 % (0-8) 4 % (0-8) Platelet Estimate Adequate Adequate Platelet Morphology Normal Normal Red Blood Cell Morphology Normal Normal Sodium Level 141 MMOL/L (136-145) 142 MMOL/L (136-145) 140 MMOL/L (136-145) Potassium Level 3.2 MMOL/L (3.5-5.1) 3.2 MMOL/L (3.5-5.1) 3.1 MMOL/L (3.5-5.1) Chloride Level 109 MMOL/L (98-107) 109 MMOL/L (98-107) 107 MMOL/L (98-107) Carbon Dioxide Level 22 MMOL/L (21-32) 23 MMOL/L (21-32) 25 MMOL/L (21-32) Anion Gap 10 mmol/L (5-15) 10 mmol/L (5-15) 8 mmol/L (5-15) Blood Urea Nitrogen 15 mg/dL (7-18) 14 mg/dL (7-18) 11 mg/dL (7-18) Creatinine 1.0 MG/DL (0.55-1.30) 0.9 MG/DL (0.55-1.30) 0.7 MG/DL (0.55-1.30) Estimat Glomerular Filtration Rate > 60 mL/min (>60) > 60 mL/min (>60) > 60 mL/min (>60) Glucose Level 137 MG/DL (74-106) 205 MG/DL (74-106) 101 MG/DL (74-106) Calcium Level 9.0 MG/DL (8.5-10.1) 8.9 MG/DL (8.5-10.1) 8.8 MG/DL (8.5-10.1) Total Bilirubin 0.9 MG/DL (0.2-1.0) 0.6 MG/DL (0.2-1.0) Aspartate Amino Transf (AST/SGOT) 18 U/L (15-37) 12 U/L (15-37) Alanine Aminotransferase (ALT/SGPT) 23 U/L (12-78) 20 U/L (12-78) Alkaline Phosphatase 149 U/L (46-116) 131 U/L (46-116) Total Protein 7.5 G/DL (6.4-8.2) 7.3 G/DL (6.4-8.2) Albumin 2.7 G/DL (3.4-5.0) 2.6 G/DL (3.4-5.0) Globulin 4.8 g/dL 4.7 g/dL Albumin/Globulin Ratio 0.6 (1.0-2.7) 0.6 (1.0-2.7) Random Amikacin Level 14.9 ug/mL Microbiology Date/Time Source Procedure Growth Status 05/31/18 20:00 Blood Blood Culture - Preliminary NO GROWTH AFTER 48 HOURS Resulted 05/31/18 19:45 Blood Blood Culture - Preliminary NO GROWTH AFTER 48 HOURS Resulted Microbiology Date/Time Source Procedure Growth Status 05/31/18 20:00 Blood Blood Culture - Preliminary NO GROWTH AFTER 48 HOURS Resulted 05/31/18 12:30 Wound Gram Stain - Final Complete 05/31/18 12:30 Wound Culture - Final Escherichia Coli - Esbl Debi Albicans Complete 05/30/18 05:28 Nasal Nares Influenza Types A,B Antigen (MICAELA) - Final Complete 05/30/18 18:20 Indwelling Cath Urine Culture - Final Providencia Stuartii Proteus Mirabilis Complete 05/30/18 05:00 Rectum - Final NO CARBAPENEM-RESISTANT ENTEROBACTERI... Complete Laboratory Tests Test 06/03/18 02:55 Sodium Level 140 MMOL/L (136-145) Potassium Level 3.1 MMOL/L (3.5-5.1) L Chloride Level 107 MMOL/L (98-107) Carbon Dioxide Level 25 MMOL/L (21-32) Anion Gap 8 mmol/L (5-15) Blood Urea Nitrogen 11 mg/dL (7-18) Creatinine 0.7 MG/DL (0.55-1.30) Estimat Glomerular Filtration Rate > 60 mL/min (>60) Glucose Level 101 MG/DL (74-106) # Calcium Level 8.8 MG/DL (8.5-10.1) Vancomycin Level Trough 11.6 ug/mL (5.0-12.0) Current Medications Medications (Trade) Dose Ordered Sig/Kehinde Route PRN Reason Start Time Stop Time Status Last Admin Dose Admin Acetaminophen (Tylenol) 650 mg Q6H PRN GT Mild Pain/Temp > 100.5 05/30/18 16:16 06/29/18 16:15 06/01/18 05:58 Acetaminophen/ Hydrocodone Bitart (Madison 5/325) 1 tab Q4H PRN GT PAIN 4-10 05/30/18 16:18 06/06/18 16:17 Albuterol Sulfate (Proventil) 2.5 mg Q6H PRN HHN Shortness of Breath 05/30/18 16:16 06/04/18 16:15 05/31/18 09:10 Albuterol/ Ipratropium (Albuterol/ Ipratropium) 3 ml STAT PRN HHN Shortness of Breath 06/01/18 11:30 06/06/18 11:29 06/02/18 05:23 Amikacin Protocol (Amikacin pharmacy to dose) 1 ea DAILY PRN MISC Per rx protocol 05/31/18 11:45 06/30/18 11:44 Amikacin Sulfate 1000 mg/Sodium Chloride 114 ml @ 114 mls/hr Q36H IV 05/31/18 15:00 06/07/18 14:59 06/03/18 16:27 Bisacodyl (Dulcolax) 10 mg DAILYPRN PRN RECTAL Constipation 05/30/18 16:16 06/29/18 16:15 Calcium Carbonate (Tums) 500 mg DAILY GT 05/31/18 09:00 06/30/18 08:59 06/03/18 09:19 Docusate Sodium (Colace) 100 mg DAILY GT 05/31/18 09:00 06/30/18 08:59 06/03/18 09:19 Enalapril Maleate (Vasotec) 20 mg Q12HR GT 05/30/18 21:00 06/29/18 20:59 06/03/18 09:27 Finasteride (Proscar) 5 mg DAILY ORAL 05/31/18 09:00 06/29/18 11:44 06/03/18 09:19 Ketotifen Fumarate (Zatidor) 1 drop Q12HR BOTH EYES 05/30/18 21:00 06/29/18 20:59 06/03/18 09:32 Lansoprazole (Prevacid) 30 mg DAILY GT 05/31/18 09:00 06/30/18 08:59 06/03/18 09:27 Levalbuterol HCl (Xopenex) 1.25 mg Q6HRT HHN 05/31/18 08:30 06/05/18 08:29 06/03/18 12:39 Meropenem 1 gm/ Sodium Chloride 55 ml @ 110 mls/hr Q8H IVPB 06/02/18 16:00 06/07/18 15:59 06/03/18 09:18 Metoprolol Tartrate (Lopressor) 100 mg Q8HR GT 05/30/18 22:00 06/29/18 12:59 06/03/18 13:49 Ondansetron HCl (Zofran) 4 mg Q6H PRN GT Nausea & Vomiting 05/30/18 16:19 06/29/18 16:18 Polyethylene Glycol (Miralax) 17 gm DAILY GT 05/31/18 09:00 06/29/18 12:59 06/03/18 09:28 Potassium Chloride (K-Dur) 20 meq BID GT 06/03/18 09:15 07/03/18 09:14 06/03/18 09:19 Sennosides (Senokot) 8.6 mg QHS GT 05/30/18 21:00 06/29/18 12:29 05/30/18 20:10 Sodium Chloride (NaCl) 2 gm DAILY GT 05/31/18 09:00 06/29/18 12:59 06/03/18 09:19 Sodium Phosphate (Fleet's Sodium Phosl Enema) 133 ml DAILYPRN PRN RECTAL Constipation 05/30/18 16:18 06/29/18 16:17 Tamsulosin HCl (Flomax) 0.4 mg BEDTIME ORAL 06/01/18 21:00 07/01/18 20:59 06/02/18 21:24 Trazodone HCl (Desyrel) 12.5 mg QHS GT 05/30/18 21:00 06/29/18 20:59 06/02/18 21:24 Vancomycin HCl (Vanco rx to dose) 1 ea DAILY PRN MISC Per rx protocol 05/31/18 09:00 06/29/18 11:44 Vancomycin HCl 1 gm/Dextrose 275 ml @ 183.708 mls/hr Q12H IVPB 06/03/18 16:00 06/08/18 15:59 06/03/18 16:58 Zinc Oxide (Zinc Oxide) 1 applic BEDTIME TOPIC 05/31/18 21:00 06/30/18 13:59 06/02/18 21:26 Rodriguez Hawthorne MD Jun 03, 2018 18:02
[2018-06-03 20:00] VITALS: BP 109/98
--- NOTE | 2018-06-03 21:00 | Progress Note ---
CARDIOLOGY PROGRESS NOTE DATE: 06/03/2018 OBJECTIVE: GENERAL: The patient is more awake and alert, and in no distress. He is off high-flow oxygen with no distress. VITAL SIGNS: Blood pressure 147/99, pulse 99, and respirations 21. Afebrile. Earlier, 138/78, heart rate 85, and respiratory rate 18. HEENT: Right-sided hemiplegia with aphasia. G-tube site intact. LUNGS: Clear. CARDIAC: Regular rhythm and rate. Normal S1, S2 with a fourth heart sound. EXTREMITIES: No edema. LABORATORY DATA: Labs yesterday, white count 7.2. Today, sodium 140, potassium 3.1, BUN 11, and creatinine 0.7. IMPRESSION: 1. Sepsis with recovered shock. 2. Hypovolemia and dehydration, corrected. 3. Hypokalemia. 4. Cerebrovascular accident with hemiparesis. 5. Arteriosclerotic cardiovascular disease. 6. Hypertensive heart disease with labile blood pressure. 7. Lactic acidosis, recovered. 8. Metabolic encephalopathy, resolved. 9. Moderate protein-calorie malnutrition. PLAN: 1. Titrate antihypertensives based on clinical parameters. 2. Maintain adequate hydration by G-tube. 3. Replace potassium, check magnesium. 4. Protein supplementation. Fuentes Gutierres M.D. DR: BUNNY JOB#: [id number] CC:
--- NOTE | 2018-06-05 09:37 | Discharge Summary ---
Discharge Summary Discharge Summary _ DATE OF ADMISSION: 05/30/2018 DATE OF DISCHARGE: 06/03/2018 DISCHARGED BY: Dr. Oquendo REASON FOR ADMISSION: 63 years old male , with DNR/DNI status, with past medical history of CVA with right hemiparesis and aphasia, dysphagia, G-tube, coronary artery disease, hypertension, COPD, presented with abdominal distention and shortness of breath. Patient by himself aphasic and was unable to provide any history. Upon evaluation patient was febrile tachycardic tachypneic and requiring supplemental oxygen. Laboratory workup revealed significant leukocytosis WBC 18.3. Chemistry unremarkable with stable electrolytes and renal parameters. Total bilirubin 1.5 direct bilirubin 0.5. Stable LFT. Albumin 2.9. Troponin negative. EKG reveals sinus tachycardia no acute ischemic changes. ABG with evidence of hypoxemia. Patient was subsequently placed on BiPAP. Urinalysis revealed +3 protein, plus for glucose, +2 blood, and show evidence of pyuria and moderate bacteria. Chest x-ray revealed borderline cardiomegaly but no acute cardiopulmonary process otherwise. Septic workup initiated patient . Patient admitted with diagnoses of sepsis, urinary tract infection , acute respiratory failure. CONSULTANTS: gopherman Dr. Gutierres ID specialist Urologist Dr. Paris GI specialist dr. David [facility] COURSE: Patient admitted to [facility] and started on intravenous hydration and empiric antibiotics. Upon evaluation by attending physician, patient noted to be quite distended , and gastrostomy tube was not functioning. Patient was kept n.p.o. CT of the abdomen and pelvis was subsequently done and revealed mild right hydroureteronephrosis, secondary to a 5 mm obstructing stone in the distal right ureter. Additional 4 mm nonobstructive stone in the right kidney. GI , urology and ID specialist consults were requested . Urologist seen and evaluated patient. Patient subsequently undergone cystoscopy with right retrograde pyelogram, right ureteroscopy and cystogram on 06/01/2018. Right ureteral stent placement was attempted, but failed. Lynn catheter was placed with cystogram confirming the placement. Renal parameters remained stable. Patient was clinically monitored. Urologist recommended treatment of stones later , once infection/sepsis resolved. Per urologist, patient may need decompression of right kidney with nephrostomy tube if not improving. Infectious disease specialist closely followed. Blood culture revealed growth of Proteus mirabilis and E. coli ESBL. Urine culture revealed growth of Proteus mirabilis, E. coli ESBL and Providencia. Influenza screen was negative. Repeated blood culture on 05/31 were negative. Antibiotic regimen provided as per ID specialist recommendations. Patient was discharged on IV meropenem [facility] to complete the course of treatment , for additional 10 days. Leukocytosis and fevers resolved. GI specialist closely followed for e initial malfunctioning of G-tube. Patient initially kept n.p.o. as mentioned above due to concern of possible small bowel obstruction. CT of the abdomen revealed no evidence of small bowel obstruction. G-tube was evaluated by GI specialist and at time of evaluation was working properly. According to GI specialist , gastrostomy tube at times could become kinked at the base of the retention ring , which would make it appeared to be clogged. G-tube site care provided as per GI recommendations. Bowel regimen instituted. Supportive care provided. Patient started on tube feeding with strict aspiration /reflux precautions per surveillance dual rate officer recommendations with slowly advancing to goal rate. Patient was able to tolerate tube feeding. Abdominal distention resolved. Um Rn followed for initial tachycardia and management of cardiovascular status. Blood pressure initially was trending down., but responded to volume support. There was no need for pressors or antiarrhythmics. Antihypertensive regimen was titrated based on clinical parameters. Patient initially required BiPAP. Pulmonary toilet provided as needed. Patient was able to be weaned from the BiPAP . Pulse ohmmetry stable on oxygen 2 L via nasal cannula prior to discharge. Supplemental oxygen provided as needed to keep pulse oximetry above 92%. DVT prophylaxis provided. Patient was maintained adequate hydration , initially with IV fluids and then by G-tube with flushes. Renal parameters and electrolytes were closely monitored. Electrolytes replaced as needed , nephrotoxins were avoided. Protein supplementation provided. Supportive care provided. Patient stabilized and was [facility] . Patient with DNR/DNI status. FINAL DIAGNOSES: Acute respiratory failure requiring BiPAP - resolved Sepsis with Proteus and E. coli ESBL bacteremia Providencia, E. coli ESBL, Proteus UTI Recovering shock Right ureteral obstruction due to stone Status post cystoscopy with attempted but failed ureteral stent placement G-tube dysfunction/malfunction -resolved Dehydration and hypovolemia -corrected Hypokalemia History of CVA with right hemiparesis and aphasia Metabolic encephalopathy Lactic acidosis Moderate protein calorie malnutrition COPD Atherosclerotic cardiovascular disease Hypertensive heart disease with labile blood pressure Hematuria Hydronephrosis Urinary retention BPH Neurogenic bladder DISCHARGE MEDICATIONS: List of medication was sent to accepting facility. DISCHARGE INSTRUCTIONS: [facility]. Follow up with medical doctor at the facility. I have been assigned to dictate discharge summary for this account. I was not involved in the patient's management. Mimi Feliz NP Jun 05, 2018 09:37
== END 2018-06-03 20:55 | DRG 871 ==
LOC: EDBD 04:32 → EDBEDREQ 04:57 → EMR 05:30 → 2E 05:41 → EDBEDREQ 06:20 → 2W 15:30
PROC: 5A09457 Assistance with Respiratory Ventilation, 24-96 Consecutive Hours, Continuous Positive Airway Pressure (ICD-10-PCS; 2018-06-01)
PROC: BT1DZZZ Fluoroscopy of Right Kidney, Ureter and Bladder (ICD-10-PCS; principal; 2018-06-01 13:00)
PROC: 0TJ98ZZ Inspection of Ureter, Via Natural or Artificial Opening Endoscopic (ICD-10-PCS; principal; 2018-06-01 13:00)
DX: A41.51 Sepsis due to Escherichia coli [E. coli] (principal); J96.00 Acute respiratory failure, unspecified whether with hypoxia or hypercapnia; G93.41 Metabolic encephalopathy; R65.21 Severe sepsis with septic shock; N39.0 Urinary tract infection, site not specified; N20.1 Calculus of ureter; K94.23 Gastrostomy malfunction; I69.351 Hemiplegia and hemiparesis following cerebral infarction affecting right dominant side; E44.0 Moderate protein-calorie malnutrition; K56.609 Unspecified intestinal obstruction, unspecified as to partial versus complete obstruction; K56.7 Ileus, unspecified; N13.2 Hydronephrosis with renal and ureteral calculous obstruction; B96.4 Proteus (mirabilis) (morganii) as the cause of diseases classified elsewhere; B96.89 Other specified bacterial agents as the cause of diseases classified elsewhere; Z16.12 Extended spectrum beta lactamase (ESBL) resistance; Y83.3 Surgical operation with formation of external stoma as the cause of abnormal reaction of the patient, or of later complication, without mention of misadventure at the time of the procedure; E86.1 Hypovolemia; E86.0 Dehydration; I69.320 Aphasia following cerebral infarction; I69.391 Dysphagia following cerebral infarction; R13.10 Dysphagia, unspecified; J44.9 Chronic obstructive pulmonary disease, unspecified; I25.10 Atherosclerotic heart disease of native coronary artery without angina pectoris; I11.9 Hypertensive heart disease without heart failure; N40.1 Benign prostatic hyperplasia with lower urinary tract symptoms; R33.8 Other retention of urine; N31.9 Neuromuscular dysfunction of bladder, unspecified; Z66 Do not resuscitate; R14.0 Abdominal distension (gaseous); Z68.27 Body mass index [BMI] 27.0-27.9, adult
CPT/HCPCS: 36415; 36600; 71045; 74018; 74177; 74420; 76000; 80048; 80053; 80150; 80202; 81003; 82248; 82550; 82553; 82803; 83605; 84484; 85007; 85025; 85610; 85730; 86710; 87040; 87070; 87081; 87086; 87181; 87205; 93005; 94640; 94660; 94664; 94760; 96361; 96365; 96368; 99291; J2250; J2405; J7620; J8499

== ENCOUNTER 2018-07-05 15:39 | Inpatient (IN) | payer MEDICARE, BC ==
[2018-07-05] VITALS: BP 177/117
[~2018-07-05] VITALS: Ht 172.7 cm; Wt 71.7 kg
--- NOTE | 2018-07-05 15:42 | NUR ---
ED Nurse Note: patient brought in by ambulance from [facility] due to abnormal x-ray result facility called ambulance to send the patient, patient has g-tube/ aspiration pneumonia suspected. patient has lot of secretion, oral suction done
[2018-07-05] MEDS ORDERED: CATAPRES0.2 MG GT (16:00)
[2018-07-05] MEDS ORDERED: TAMSULOSIN HCL0.4 MG GT (16:02)
[2018-07-05] MEDS ORDERED: ALBUTEROL SULF8.5 GM INH (16:08)
[2018-07-05] MEDS ORDERED: POTASSIUM CHLO20 ME1 GT (16:16)
[2018-07-05] MEDS ORDERED: LEVALBUTER0.31 MG/3 IH (16:16)
[2018-07-05] MEDS ORDERED: LANSOPRAZOLE30 MG GT (16:16)
[2018-07-05] MEDS ORDERED: NORCO 5-325 TA1 EACH GT (16:16)
[2018-07-05] MEDS ORDERED: PREVACID30 M2 GT (16:16)
[2018-07-05] MEDS ORDERED: MIRALAX17 G2 GT (16:16)
[2018-07-05] MEDS ORDERED: Sodium chloride GT (16:18)
[2018-07-05] MEDS ORDERED: SENOKOT8.6 MG GT (16:18)
[2018-07-05] MEDS ORDERED: VASOTEC20 MG GT (16:19)
--- NOTE | 2018-07-05 16:32 | History & Physical ---
History and Physical History & Physicial DATE OF ADMISSION: 07/05/2018 CHIEF COMPLAINT: cough and congestion HISTORY OF PRESENT ILLNESS: This 63-year-old man was transferred from a halfway by paramedics to the emergency department because of congestion and pneumonia on CXR today. He is aphasic and can provide no additional history. He was confirmed to have pneumonia and admitted. PAST MEDICAL HISTORY: He was hospitalized a month ago with similar findings of pneumonia. He has a history of fecal impaction. He has a G-tube in place for dysphagia. He has a history of cerebral hemorrhage and right hemiparesis with aphasia, dysphagia, coronary disease, hypertension, COPD, and hyponatremia. ALLERGIES: None to medications. MEDICATIONS: Reviewed. CODE STATUS: DNR according to my discussions with the daughter last month. A POLST is on file. PHYSICAL EXAMINATION: GENERAL: The patient is awake and regards me and seems to remember me. He is well developed and well nourished and not in distress. VITAL SIGNS: are stable HEENT: The head is normocephalic. NECK: No jugular venous distention. CHEST: rhonchi CARDIAC: Rhythm is regular. ABDOMEN: Soft and nontender. It is mildly distended. A gastric tube is in place. There is no evidence of ascites. EXTREMITIES: No clubbing, cyanosis, or edema. NEUROLOGIC: Aphasic, right hemiparesis. LABORATORY STUDIES: pending. An outpatient CXR showed RUL infiltrate IMPRESSION: 1. Sepsis with fever and leukocytosis, etiology unclear. 2. Abdominal distention, possible abdominal sepsis. 3. Acute respiratory failure, requiring BiPAP. 4. History of stroke with right hemiparesis and aphasia. 5. Gastric tube dysfunction/malfunction. 6. Hypertension. 7. DNR. PLAN: The patient will be admitted. We will continue intravenous fluids and antibiotics. Respiratory treatments were ordered. Jose J Oquendo MD Jul 05, 2018 16:32
--- NOTE | 2018-07-05 16:44 | Emergency Room Report ---
History of Present Illness General Chief Complaint: Abnormal Labs Source: Medical Record, PMD Present Illness HPI patient is aphasic and offers no meaningful history. sent by PMD for pneumonia and SOB. Allergies: Coded Allergies: NO KNOWN ALLERGIES (Unverified Allergy, Unknown, 03/02/15) Patient History Past Medical History: see triage record, old chart reviewed Past Surgical History: unable to obtain Pertinent Family History: unable to obtain Nursing Documentation-PMH Past Medical History: No History, Except For Hx Cardiac Problems: Yes - atherosclerotic heart disease Hx Hypertension: Yes Hx Pacemaker: No Hx Asthma: No Hx COPD: Yes Hx Diabetes: No Hx Cancer: No Hx Gastrointestinal Problems: No - dysphagia, BPH, urinary retention Hx Dialysis: No Hx Neurological Problems: No Hx Cerebrovascular Accident: Yes - cerbral infarction Hx Seizures: Yes Hx Paralysis: Yes - right sided hemiplegia Hx Head Trauma: Yes - INTERCEREBRAL HEMORRHAGE Hx Speech Problem: Yes - APHASIA Hx Aphasia: Yes Hx Dysphasia: Yes Hx Weakness: Yes - Right sided weakness Review of Systems All Other Systems: limited Physical Exam Vital Signs Date Time Temp Pulse Resp B/P (MAP) Pulse Ox O2 Delivery O2 Flow Rate FiO2 07/05/18 15:35 99.1 89 16 152/103 98 Room Air General Appearance: well appearing, no apparent distress ENT: normal ENT inspection Neck: normal inspection Respiratory: crackles Gastrointestinal: normal inspection, other - G-tube in place Neurologic: aphasia Medical Decision Making Diagnostic Impression: Primary Impression: Sepsis due to pneumonia ER Course Patient has stable vital signs. Is very concerned about acute pneumonia and septic shock. IV advise have been started. Discussed this with the admitting physician, who has placed admitting orders as well. Laboratory Tests Test 07/05/18 16:40 07/05/18 17:23 07/05/18 18:46 Urine Color Yellow Urine Appearance Cloudy Urine pH 6 (4.5-8.0) Urine Specific [place] 1.010 (1.005-1.035) Urine Protein 2+ (NEGATIVE) H Urine Glucose (UA) Negative (NEGATIVE) Urine Ketones Negative (NEGATIVE) Urine Blood 5+ (NEGATIVE) H Urine Nitrite Positive (NEGATIVE) H Urine Bilirubin Negative (NEGATIVE) Urine Urobilinogen 1 MG/DL (0.0-1.0) H Urine Leukocyte Esterase 3+ (NEGATIVE) H Urine RBC 30-40 /HPF (0 - 0) H Urine WBC 20-30 /HPF (0 - 0) H Urine Squamous Epithelial Cells Occasional /LPF Urine Bacteria Many /HPF (NONE) H Sodium Level 125 MMOL/L (136-145) L Potassium Level 5.3 MMOL/L (3.5-5.1) H Chloride Level 94 MMOL/L (98-107) L Carbon Dioxide Level 22 MMOL/L (21-32) Anion Gap 9 mmol/L (5-15) Blood Urea Nitrogen 15 mg/dL (7-18) Creatinine 0.7 MG/DL (0.55-1.30) Estimate Glomerular Filtration Rate > 60 mL/min (>60) Glucose Level 100 MG/DL (74-106) Lactic Acid Level 1.20 mmol/L (0.4-2.0) Calcium Level 9.2 MG/DL (8.5-10.1) Total Bilirubin 1.3 MG/DL (0.2-1.0) H Direct Bilirubin 0.2 MG/DL (0.0-0.3) Aspartate Amino Transferase (AST) 41 U/L (15-37) H Alanine Aminotransferase (ALT) 26 U/L (12-78) Alkaline Phosphatase 204 U/L (46-116) H Creatine Kinase MB 0.9 NG/ML (0.0-3.6) Total Protein 8.3 G/DL (6.4-8.2) H Albumin 3.5 G/DL (3.4-5.0) Globulin 4.8 g/dL Albumin/Globulin Ratio 0.7 (1.0-2.7) L White Blood Count 13.5 K/UL (4.8-10.8) H Red Blood Count 4.68 M/UL (4.70-6.10) L Hemoglobin 14.2 G/DL (14.2-18.0) Hematocrit 41.2 % (42.0-52.0) L Mean Corpuscular Volume 88 FL (80-99) Mean Corpuscular Hemoglobin 30.3 PG (27.0-31.0) Mean Corpuscular Hemoglobin Concent 34.5 G/DL (32.0-36.0) Red Cell Distribution Width 12.4 % (11.6-14.8) Platelet Count 282 K/UL (150-450) Mean Platelet Volume 6.4 FL (6.5-10.1) L Neutrophils (%) (Auto) 80.5 % (45.0-75.0) H Lymphocytes (%) (Auto) 5.8 % (20.0-45.0) L Monocytes (%) (Auto) 9.6 % (1.0-10.0) Eosinophils (%) (Auto) 0.8 % (0.0-3.0) Basophils (%) (Auto) 3.3 % (0.0-2.0) H EKG Diagnostic Results EKG Time: 17:24 Rate: normal Rhythm: NSR ST Segments: no acute changes ASA given to the pt in ED: No Chest X-Ray Diagnostic Results Chest X-Ray Diagnostic Results : Chest X-Ray Ordered: Yes # of Views/Limited/Complete: 1 View Indication: Shortness of Breath EP Interpretation: Yes Impression: Other - increased pulm congestion, ?LLL infiltrate Last Vital Signs Date Time Temp Pulse Resp B/P (MAP) Pulse Ox O2 Delivery O2 Flow Rate FiO2 07/05/18 15:35 99.1 89 16 152/103 98 Room Air Disposition: ADMITTED INPATIENT Admit Decision Time: 19:31 Condition: Serious MELO BURT Jul 05, 2018 16:44
[2018-07-05 17:10] LABS: APPEARANCE,URINE CLOUDY; BILIRUBIN, URINE NEGATIVE (NEGATIVE); COLOR,URINE YELLOW; GLUCOSE, URINE (UA) NEGATIVE (NEGATIVE); KETONES,URINE NEGATIVE (NEGATIVE); LEUKOCYTE ESTERASE ,URINE 3+ (NEGATIVE); NITRITE,URINE POSITIVE (NEGATIVE); PH,URINE 6 (4.5-8.0); PROTEIN,URINE 2+ (NEGATIVE); UROBILINOGEN,URINE 1 MG/DL (0.0-1.0)
[2018-07-05] MEDS: Piperacillin/Tazobactam 3.375 GM in D5W 110 ML IV SCH ×3 (17:10→19:33)
[2018-07-05 17:46] LABS: ANION GAP 9 mmol/L (5-15); BLOOD UREA NITROGEN 15 mg/dL (7-18); CALCIUM 9.2 MG/DL (8.5-10.1); CARBON DIOXIDE 22 MMOL/L (21-32); CHLORIDE 94 MMOL/L (98-107); CREATININE 0.7 MG/DL (0.55-1.30); POTASSIUM 5.3 MMOL/L (3.5-5.1); SODIUM 125 MMOL/L (136-145)
--- NOTE | 2018-07-05 17:58 | Diagnostic Imaging Report ---
EXAM: XR Chest, 1 View CLINICAL HISTORY: SOB TECHNIQUE: Frontal view of the chest. COMPARISON: No relevant prior studies available. FINDINGS: Lungs: Reduced lung volumes and accentuation of markings. Retrocardiac atelectasis/consolidation. Pleural space: Unremarkable. No pneumothorax. Heart: Large cardiomediastinal silhouette. Mediastinum: See above. Bones/joints: Old rib fractures. Old left clavicular fracture. Degenerative arthritic changes of the right shoulder. IMPRESSION: Reduced lung volumes and accentuation of markings. Mild edema could be considered in proper clinical setting.
[2018-07-05 18:01] VITALS: BP 147/105
[2018-07-05 18:01] LABS: ALANINE AMINOTRANSFERASE 26 U/L (12-78); ALBUMIN 3.5 G/DL (3.4-5.0); ALBUMIN/GLOBULIN RATIO 0.7 (1.0-2.7); ALKALINE PHOSPHATASE 204 U/L (46-116); ASPARTATE AMINO TRANSFERASE 41 U/L (15-37); BILIRUBIN,TOTAL 1.3 MG/DL (0.2-1.0); CKMB 0.9 NG/ML (0.0-3.6)
[2018-07-05 18:16] LABS: BILIRUBIN,DIRECT 0.2 MG/DL (0.0-0.3)
[2018-07-05] MEDS ORDERED: METOPROLOL TAR100 M1 GT (18:29)
[2018-07-05] MEDS ORDERED: DOCUSATE SODIU100 MG GT (18:41)
[2018-07-05] MEDS ORDERED: CALCIUM CARBON600 M1 GT (18:41)
[2018-07-05] MEDS ORDERED: ALBUTEROL2.5 MG/3 M INH (18:41)
[2018-07-05] MEDS ORDERED: BISACODYL10 MG/30 M RC (18:41)
[2018-07-05] MEDS ORDERED: SODIUM CHLORIDE1 GM GT (18:43)
[2018-07-05 18:54] LABS: BASOPHILS % (AUTO) 3.3 % (0.0-2.0); EOSINOPHILS % (AUTO) 0.8 % (0.0-3.0); HEMATOCRIT 41.2 % (42.0-52.0); HEMOGLOBIN 14.2 G/DL (14.2-18.0); LYMPHOCYTES % (AUTO) 5.8 % (20.0-45.0); MEAN CORPUSCULAR VOLUME 88 FL (80-99); MONOCYTES % (AUTO) 9.6 % (1.0-10.0); NEUTROPHILS % (AUTO) 80.5 % (45.0-75.0); PLATELET COUNT 282 K/UL (150-450); RED BLOOD COUNT 4.68 M/UL (4.70-6.10); RED CELL DISTRIBUTION WIDTH 12.4 % (11.6-14.8); WHITE BLOOD COUNT 13.5 K/UL (4.8-10.8)
--- NOTE | 2018-07-05 19:15 | NUR ---
HAND-OFF: Report given to Paola Vann RN.
--- NOTE | 2018-07-05 20:16 | NUR ---
ER Nurse Note: Pt a&ox1, able to follow commands. Pt VSS, no signs of distress. Crackles heard on inspiration and expiration; oral suction provided; O2 stat 97%. Pt is infusing vanco, left forearm. Awaiting bed room; will continue to [facility].
[2018-07-05 20:26] VITALS: BP 150/110
[2018-07-05 23:03] VITALS: BP 148/107
--- NOTE | 2018-07-05 23:30 | NUR ---
ER Nurse Note: Report given to NAV Malik in [place]. Pt stable and all belongings taken with pt.
[2018-07-06] VITALS (7 sets, daily range): BP systolic 118–182; BP diastolic 77–127
[2018-07-06] MEDS ORDERED: Albuterol ud Inhalation HHN PRN (00:15)
[2018-07-06] MEDS ORDERED: Norco 5mg/325mg tab GT PRN ×2 (00:15→08:15)
[2018-07-06] MEDS ORDERED: cloNIDine 0.2mg Tab GT PRN (00:15)
--- NOTE | 2018-07-06 00:22 | NUR ---
NURSE NOTES: Received report over the phone from NAV Guevara. Received patient via tech on [facility]. No belongings with patient. Nonverbal. Satting over 95% on room air. Rhonci and rhales heard in lung sounds. IV intact, patent, and saline locked. Bed in lowest position with call light in reach. Will call MD for orders.
[2018-07-06] MEDS ORDERED: Piperacillin/Tazobactam 3.375 GM in NS 110 ML IVPB SCH (01:00)
[2018-07-06] MEDS ORDERED: Vancomycin 1gm in D5W 275ml IVPB SCH ×2 (04:00→06:00)
--- NOTE | 2018-07-06 05:00 | NUR ---
NURSE NOTES: At 0350 patient vitals show HR of 138 and BP of 182/112. Radial pulses bounding. Charge nurse made aware. Rapid response called. MD dairy feed sales consultant notified. Patient received 0.2 mg of Catapres and Tylenol for fever. Gambling Dealer recommended transfer to [facility] and MD agreed. See handwritten rapid response documentation.
--- NOTE | 2018-07-06 05:48 | NUR ---
TRANSFER TO FLOOR: Patient transferred to Tele, per Dr. Alarcon. Report given to NAV Palumbo.
--- NOTE | 2018-07-06 05:50 | NUR ---
NURSE NOTES: Pt transferred from medical-surgical [facility] without incidence. Pt is aphasic but can provide non-verbal yes/no responses to questions. Pt oriented x1-2 to name. Pt is on 2L O2 via nasal cannula. Breathing noted to be somewhat labored with intercostal retractions and rhonchi auscultated throughout bilateral lobes. O2 saturation is 98%. IV site is infiltrated, will attempt to replace LUIZ and contact MD to notify. G-tube site noted to be patent and intact and dressing is also dry and intact. G-tube feeding on hold s/p TRACK CAR OPERATOR called prior to transfer. HOB kept >30 degrees. Bed placed in lowest position with brake engaged, side rails up x3, and bed alarm on. Call light and side table placed within reach. Will continue to monitor.
--- NOTE | 2018-07-06 06:21 | NUR ---
NURSE NOTES: Vitals noted to be as followed: BP: 163/112 O2: 98% on 2L O2 via nasal cannula P: 138 Temp: 100.1F R: 24 MD Alarcon notified of pt status upon transfer and current vitals. No new orders at this time. Pt has already received Clonidine and Tylenol, see emar for further details. MD Alarcon notified that pt does not have IV access at this time but that multiple nurses are attempting to place peripheral IV access. Will continue to monitor and update with any changes in patient condition.
--- NOTE | 2018-07-06 06:30 | NUR ---
NURSE NOTES: IV site placed on L hand #[id number].
--- NOTE | 2018-07-06 07:00 | NUR ---
NURSE NOTES: No residual noted from GT. Okay to restart tube feeding per MD Alarcon. MD Alarcon at bedside. Addendum: 07/06/18 at 0754 by JOHN SIMS RN MD Alarcon notified of all recent labs and vital signs. New orders placed per and endorsed to AM shift.
--- NOTE | 2018-07-06 07:13 | Pulmonology Progress Note ---
Assessment/Plan Assessment/Plan uti sepsis ? 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 ST anysomptomatic check ekg, tropponins IVF home meds via GT TF wound care IV abx FU cultures nebs Subjective ROS Limited/Unobtainable: Yes Allergies: Coded Allergies: NO KNOWN ALLERGIES (Unverified Allergy, Unknown, 03/02/15) Subjective noted with sinus tach over night no distress bp stable positive fever no cp nv or bleeding tolerating tf home meds resumed pt wtih cva expressive aphasia and right HP on abx Objective Last 24 Hour Vital Signs Date Time Temp Pulse Resp B/P (MAP) Pulse Ox O2 Delivery O2 Flow Rate FiO2 07/06/18 06:30 100.1 140 24 163/112 (129) 98 07/06/18 05:59 100.1 07/06/18 05:45 135 07/06/18 04:25 183/112 07/06/18 04:00 98.8 138 20 182/112 (135) 95 07/06/18 02:11 118 20 99 Room Air 21 07/06/18 02:01 116 20 94 Room Air 21 07/06/18 02:00 116 20 Room Air 21 07/06/18 01:07 Room Air 07/05/18 23:30 99.4 124 20 148/107 97 Room Air 07/05/18 23:03 99.4 124 20 148/107 97 Room Air 07/05/18 20:26 99.5 110 22 150/110 98 Room Air 07/05/18 18:01 99.7 106 27 147/105 97 Room Air 07/05/18 15:35 99.1 89 16 152/103 98 Room Air Intake and Output 07/05/18 07/06/18 19:00 07:00 Intake Total 1360 ml Output Total 1000 ml Balance 360 ml Intake IV Total 1360 ml Output Urine Total 1000 ml General Appearance: WD/WN Respiratory/Chest: rhonchi Cardiovascular: arrhythmia, edema Abdomen: soft, non tender, no organomegaly Neurologic/Psychiatric: alert, other - right HP unchanged, expressive aphasia Laboratory Tests 07/05/18 16:40: Urine Color Yellow, Urine Appearance Cloudy, Urine pH 6, Urine Specific [place] 1.010, Urine Protein 2+H, Urine Glucose (UA) Negative, Urine Ketones Negative, Urine Blood 5+H, Urine Nitrite PositiveH, Urine Bilirubin Negative, Urine Urobilinogen 1H, Urine Leukocyte Esterase 3+H, Urine RBC 30-40H, Urine WBC 20- 30H, Urine Squamous Epithelial Cells Occasional, Urine Bacteria ManyH 07/05/18 17:23: Sodium Level 125L, Potassium Level 5.3H, Chloride Level 94L, Carbon Dioxide Level 22, Anion Gap 9, Blood Urea Nitrogen 15, Creatinine 0.7, Estimat Glomerular Filtration Rate > 60, Glucose Level 100, Lactic Acid Level 1.20, Calcium Level 9.2, Total Bilirubin 1.3H, Direct Bilirubin 0.2, Aspartate Amino Transf (AST/SGOT) 41H, Alanine Aminotransferase (ALT/SGPT) 26, Alkaline Phosphatase 204H, Creatine Kinase MB 0.9, Total Protein 8.3H, Albumin 3.5, Globulin 4.8, Albumin/Globulin Ratio 0.7L 07/05/18 18:46: White Blood Count 13.5H, Red Blood Count 4.68L, Hemoglobin 14.2, Hematocrit 41.2L, Mean Corpuscular Volume 88, Mean Corpuscular Hemoglobin 30.3, Mean Corpuscular Hemoglobin Concent 34.5, Red Cell Distribution Width 12.4, Platelet Count 282, Mean Platelet Volume 6.4L, Neutrophils (%) (Auto) 80.5H, Lymphocytes (%) (Auto) 5.8L, Monocytes (%) (Auto) 9.6, Eosinophils (%) (Auto) 0.8, Basophils (%) (Auto) 3.3H Current Medications Medications (Trade) Dose Ordered Sig/Kehinde Route PRN Reason Start Time Stop Time Status Last Admin Dose Admin Acetaminophen (Tylenol) 650 mg Q6H PRN ORAL Mild Pain/Temp > 100.5 07/06/18 10:45 08/05/18 04:44 Acetaminophen/ Hydrocodone Bitart ([place] 5/325) 1 tab Q4H PRN GT Severe Pain (Pain Scale 7-10) 07/06/18 08:15 07/13/18 00:14 Albuterol Sulfate (Proventil) 2.5 mg Q4H PRN HHN Shortness of Breath 07/06/18 08:15 07/11/18 00:14 Calcium Carbonate (Tums) 600 mg DAILY GT 07/06/18 09:00 08/05/18 08:59 Clonidine HCl (Catapres tab) 0.2 mg Q4H PRN GT For SBP >170 07/06/18 08:15 08/05/18 00:14 Docusate Sodium (Colace) 100 mg DAILY ORAL 07/06/18 09:00 08/05/18 08:59 Finasteride (Proscar) 5 mg DAILY ORAL 07/06/18 09:00 08/05/18 08:59 Lansoprazole (Prevacid) 30 mg DAILY GT 07/06/18 09:00 08/05/18 08:59 Metoprolol Tartrate (Lopressor) 100 mg EVERY 8 HOURS GT 07/06/18 06:30 08/05/18 05:59 Ondansetron HCl (Zofran) 4 mg Q6H PRN GT Nausea & Vomiting 07/06/18 12:15 08/05/18 00:14 Piperacillin Sod/ Tazobactam Sod 3.375 gm/Sodium Chloride 110 ml @ 27.5 mls/hr Q8H IVPB 07/06/18 09:00 07/13/18 00:59 Polyethylene Glycol (Miralax) 17 gm DAILY GT 07/06/18 09:00 08/05/18 08:59 Sennosides (Senokot) 8.6 mg BEDTIME GT 07/06/18 21:00 08/05/18 20:59 Sodium Chloride 1,000 ml @ 75 mls/hr [id number] IV 07/06/18 14:00 08/05/18 13:59 Tamsulosin HCl (Flomax) 0.4 mg BEDTIME ORAL 07/06/18 21:00 08/05/18 20:59 Vancomycin HCl (Vanco rx to dose) 1 ea DAILY PRN MISC Per rx protocol 07/06/18 09:00 08/05/18 00:14 Vancomycin HCl 1 gm/Dextrose 275 ml @ 183.708 mls/hr Q12H IVPB 07/06/18 18:00 07/11/18 05:59 Indigo Alarcon DO Jul 06, 2018 07:13
--- NOTE | 2018-07-06 07:30 | NUR ---
HAND-OFF: Report given to Manan Fraga RN. Pt is resting in bed in stable condition. No acute distress noted. Endorsed plan of care.
--- NOTE | 2018-07-06 07:32 | NUR ---
NURSE NOTES: pt awake alert, nonverbal. hob elevated gtf infusing, no residual. scrotal edema. call light within reach. bed in lowest position. will continue to monitor. dr Alarcon aware of recent labs and vitals. pt still sinus tachycardia 120s now in the monitor.
[2018-07-06] MEDS: Tums 500mg GT SCH (08:10)
[2018-07-06] MEDS: Piperacillin/Tazobactam 3.375 GM in NS 110 ML IVPB SCH ×2 (08:10→18:50)
[2018-07-06] MEDS: Miralax 17gm pkt GT SCH (08:11)
[2018-07-06] MEDS: Docusate 100mg/10ml Liq GT SCH (08:11)
--- NOTE | 2018-07-06 08:47 | NUR ---
CASE MANAGEMENT: INITIAL REVIEW 63 YO M TAB FROM REHAB ON CC: ABNORMAL LABS PMHx: ATHEROSCLEROTIC HEART DX. BPH. CVA. APHASIA. SI:LEFT LOWER LOBE PNA. T 99.1 HR 89 RR 16 B/P 152/103 SATS 98% ON RA WBC 13.5 NA 125 K 5.3 CL 94 TBILI 1.3 AST 41 ALP 204 IS: VANCO IV X1 NS BOLUS X1 ZOSYN IV X1 PATIENT ADMITTED TO TELE 07/05/2018 @ 1908 DCP: PATIENT TO BE DISCHARGED TO SNF ONCE MEDICALLY CLEARED. PLAN OF CARE: IVF AND IV ANTIBx Addendum: 07/06/18 at 1425 by Ara Blevins CM INTERQUAL MET FOR ACUTE
[2018-07-06] MEDS ORDERED: Tums 500mg GT SCH (09:00)
[2018-07-06] MEDS ORDERED: Miralax 17gm pkt GT SCH (09:00)
[2018-07-06] MEDS ORDERED: Docusate 100mg cap ORAL SCH ×2 (09:00)
--- NOTE | 2018-07-06 10:11 | Urology Progress Note ---
Assessment/Plan Assessment/Plan hx of right ureteral calc hydro hx BPH hx urinary retention scrotal edema pyuria/UTI hematuria proteinuria possible neurogenic bladder monitor clinically abx as ordered f/u on urine cx quiles for now flomax and proscar check renal u/s may need nephrostomy thanks, Subjective Allergies: Coded Allergies: NO KNOWN ALLERGIES (Unverified Allergy, Unknown, 03/02/15) Subjective pt known to me, recent eval in Dec for right mid ureteral calc with hydro, sepsis, stent attempted, unsuccessful admitted with cough/congestion, pneumonia quiles indwelling PMH/chart all noted Objective Last 24 Hour Vital Signs Date Time Temp Pulse Resp B/P (MAP) Pulse Ox O2 Delivery O2 Flow Rate FiO2 07/06/18 08:38 102 20 Nasal Cannula 2.0 28 07/06/18 07:47 106 07/06/18 07:37 98.6 07/06/18 07:27 Nasal Cannula 2.0 07/06/18 07:15 136 20 147/101 (116) 07/06/18 07:06 140 163/112 07/06/18 06:30 100.1 140 24 163/112 (129) 98 07/06/18 05:59 100.1 07/06/18 05:45 135 07/06/18 04:25 183/112 07/06/18 04:00 98.8 138 20 182/112 (135) 95 07/06/18 02:11 118 20 99 Room Air 21 07/06/18 02:01 116 20 94 Room Air 21 07/06/18 02:00 116 20 Room Air 21 07/06/18 01:07 Room Air 07/05/18 23:30 99.4 124 20 148/107 97 Room Air 07/05/18 23:03 99.4 124 20 148/107 97 Room Air 07/05/18 20:26 99.5 110 22 150/110 98 Room Air 07/05/18 18:01 99.7 106 27 147/105 97 Room Air 07/05/18 15:35 99.1 89 16 152/103 98 Room Air Intake and Output 07/05/18 07/06/18 19:00 07:00 Intake Total 1360 ml Output Total 1000 ml Balance 360 ml Intake IV Total 1360 ml Output Urine Total 1000 ml Microbiology Date/Time Source Procedure Growth Status 07/05/18 16:40 Urine,Clean Catch Urine Culture - Preliminary Gram Negative Ravindra Resulted Current Medications Medications (Trade) Dose Ordered Sig/Kehinde Route PRN Reason Start Time Stop Time Status Last Admin Dose Admin Acetaminophen (Tylenol) 650 mg Q6H PRN ORAL Mild Pain/Temp > 100.5 07/06/18 10:45 08/05/18 04:44 Acetaminophen/ Hydrocodone Bitart ([place] 5/325) 1 tab Q4H PRN GT Severe Pain (Pain Scale 7-10) 07/06/18 08:15 07/13/18 00:14 Albuterol Sulfate (Proventil) 2.5 mg Q4H PRN HHN Shortness of Breath 07/06/18 08:15 07/11/18 00:14 Calcium Carbonate (Tums) 600 mg DAILY GT 07/06/18 09:00 08/05/18 08:59 07/06/18 08:10 Clonidine HCl (Catapres tab) 0.2 mg Q4H PRN GT For SBP >170 07/06/18 08:15 08/05/18 00:14 Docusate Sodium (Colace) 100 mg DAILY GT 07/06/18 09:00 08/05/18 08:59 07/06/18 08:11 Finasteride (Proscar) 5 mg DAILY ORAL 07/06/18 09:00 08/05/18 08:59 07/06/18 08:11 Lansoprazole (Prevacid) 30 mg DAILY GT 07/06/18 09:00 08/05/18 08:59 07/06/18 08:35 Metoprolol Tartrate (Lopressor) 100 mg EVERY 8 HOURS GT 07/06/18 06:30 08/05/18 05:59 07/06/18 07:06 Ondansetron HCl (Zofran) 4 mg Q6H PRN GT Nausea & Vomiting 07/06/18 12:15 08/05/18 00:14 Piperacillin Sod/ Tazobactam Sod 3.375 gm/Sodium Chloride 110 ml @ 27.5 mls/hr Q8H IVPB 07/06/18 09:00 07/13/18 00:59 07/06/18 08:10 Polyethylene Glycol (Miralax) 17 gm DAILY GT 07/06/18 09:00 08/05/18 08:59 07/06/18 08:11 Sennosides (Senokot) 8.6 mg BEDTIME GT 07/06/18 21:00 08/05/18 20:59 Sodium Chloride 1,000 ml @ 75 mls/hr [id number] IV 07/06/18 14:00 08/05/18 13:59 Tamsulosin HCl (Flomax) 0.4 mg BEDTIME ORAL 07/06/18 21:00 08/05/18 20:59 Vancomycin HCl (Vanco rx to dose) 1 ea DAILY PRN MISC Per rx protocol 07/06/18 09:00 08/05/18 00:14 Vancomycin HCl 1 gm/Dextrose 275 ml @ 183.708 mls/hr Q12H IVPB 07/06/18 18:00 07/11/18 05:59 Laboratory Tests 07/05/18 16:40: Urine Color Yellow, Urine Appearance Cloudy, Urine pH 6, Urine Specific [place] 1.010, Urine Protein 2+H, Urine Glucose (UA) Negative, Urine Ketones Negative, Urine Blood 5+H, Urine Nitrite PositiveH, Urine Bilirubin Negative, Urine Urobilinogen 1H, Urine Leukocyte Esterase 3+H, Urine RBC 30-40H, Urine WBC 20- 30H, Urine Squamous Epithelial Cells Occasional, Urine Bacteria ManyH 07/05/18 17:23: Sodium Level 125L, Potassium Level 5.3H, Chloride Level 94L, Carbon Dioxide Level 22, Anion Gap 9, Blood Urea Nitrogen 15, Creatinine 0.7, Estimat Glomerular Filtration Rate > 60, Glucose Level 100, Lactic Acid Level 1.20, Calcium Level 9.2, Total Bilirubin 1.3H, Direct Bilirubin 0.2, Aspartate Amino Transf (AST/SGOT) 41H, Alanine Aminotransferase (ALT/SGPT) 26, Alkaline Phosphatase 204H, Creatine Kinase MB 0.9, Total Protein 8.3H, Albumin 3.5, Globulin 4.8, Albumin/Globulin Ratio 0.7L 07/05/18 18:46: White Blood Count 13.5H, Red Blood Count 4.68L, Hemoglobin 14.2, Hematocrit 41.2L, Mean Corpuscular Volume 88, Mean Corpuscular Hemoglobin 30.3, Mean Corpuscular Hemoglobin Concent 34.5, Red Cell Distribution Width 12.4, Platelet Count 282, Mean Platelet Volume 6.4L, Neutrophils (%) (Auto) 80.5H, Lymphocytes (%) (Auto) 5.8L, Monocytes (%) (Auto) 9.6, Eosinophils (%) (Auto) 0.8, Basophils (%) (Auto) 3.3H Height (Feet): 5 Height (Inches): 8.00 Weight (Pounds): 180 Objective quiles indwelling urine is grossly yellow scrotal edema recent imaging noted Freedom Paris MD Jul 06, 2018 10:11
[2018-07-06] MEDS: Albuterol ud Inhalation HHN PRN ×2 (10:59→15:48)
--- NOTE | 2018-07-06 13:18 | Cardiology Report ---
APPROVED REPORT EKG Measurement Heart [id number] Sinus tachycardia Otherwise normal ECG
--- NOTE | 2018-07-06 13:31 | Cardiology Report ---
APPROVED REPORT EKG Measurement Heart [id number] Sinus rhythm Baseline artifact normal ECG
--- NOTE | 2018-07-06 15:34 | Diagnostic Imaging Report ---
EXAM: US Retroperitoneal Complete, Renal CLINICAL HISTORY: PAIN TECHNIQUE: Real-time ultrasound of the retroperitoneum (complete) with image documentation. COMPARISON: CT abdomen and pelvis 05/30/18 FINDINGS: Limitations: Limited due to body habitus. Right kidney: Right kidney measures 9 x 4.2 x 6.6 cm. No definite stones. No hydronephrosis. Left kidney: 7 cm cystic structure of the left kidney. No hydronephrosis. Left kidney measures 10.6 x 5.8 x 5.4 cm. No stones. Bladder: Lynn catheter in urinary bladder. Other findings: Dense liver likely fatty. IMPRESSION: 1. Limited due to body habitus. 2. 7 cm cystic structure of the left kidney. No hydronephrosis. 3. Dense liver likely fatty.
--- NOTE | 2018-07-06 15:41 | NUR ---
NURSE NOTES: SUCTIONED PT NASOTRACHEAL SUCTION DUE TO WHEEZING AND CONGESTION, COUGHING PT CANNOT EXPECTORATE. OUTPUT SPUTUM IS MODERATE AND WHITISH. HOB ELEVATED. RT CALLED FOR BREATHING TX. PER RT THEY'LL COME
[2018-07-06] MEDS: Vancomycin 1 GM in D5W 275 ML IVPB SCH (17:10)
--- NOTE | 2018-07-06 19:07 | NUR ---
HAND-OFF: Report given to TRUDY CHOPRA. SUCTIONED PT X 1 MINIMAL WHITISH SPUTUM OUTPUT. PT SLEEPING AT THIS TIME. HOB ELEVATED ZOSYN INFUSING. GT PATENT AND INTACT. NO GT RESIDUAL
--- NOTE | 2018-07-06 19:11 | NUR ---
NURSE NOTES: Got report from Manan CHOPRA. Pt in stable condition. No s/s of distress or discomfort noted. Pt resting in bed comfortably. Bed in low and locked position, call light within reach, bedside table within reach. Continue to monitor.
[2018-07-06] MEDS ORDERED: Tubing IV Secondary IV ONE (19:56)
[2018-07-06] MEDS: Sennosides 8.6mg tab GT SCH (20:33)
[2018-07-06] MEDS: Tamsulosin 0.4mg cap ORAL SCH (20:34)
[2018-07-06] MEDS: cloNIDine 0.2mg Tab GT PRN (20:35)
[2018-07-06] MEDS ORDERED: Sennosides 8.6mg tab GT SCH (21:00)
[2018-07-06] MEDS ORDERED: Tamsulosin 0.4mg cap ORAL SCH (21:00)
[2018-07-07] VITALS (7 sets, daily range): BP systolic 126–154; BP diastolic 88–103
[2018-07-07] MEDS: Piperacillin/Tazobactam 3.375 GM in NS 110 ML IVPB SCH ×3 (00:36→17:01)
[2018-07-07] MEDS: Vancomycin 1 GM in D5W 275 ML IVPB SCH ×2 (05:32→18:40)
--- NOTE | 2018-07-07 06:59 | NUR ---
HAND-OFF: Report given to narinder Lezama. endorsed plan of care.
--- NOTE | 2018-07-07 07:00 | NUR ---
NURSE NOTES: pt awake alert, no distress. hob elevated, gtf running. left hand infiltrated iv , puffy hand, instructed prior rn to remove it. will start new iv. call light within reach. will monitor.
[2018-07-07] MEDS: Tums 500mg GT SCH (08:13)
[2018-07-07] MEDS: Docusate 100mg/10ml Liq GT SCH (08:14)
[2018-07-07] MEDS: Miralax 17gm pkt GT SCH (08:14)
[2018-07-07 08:27] LABS: BASOPHILS % (AUTO) 1.4 % (0.0-2.0); EOSINOPHILS % (AUTO) 2.8 % (0.0-3.0); HEMATOCRIT 39.3 % (42.0-52.0); HEMOGLOBIN 13.4 G/DL (14.2-18.0); LYMPHOCYTES % (AUTO) 9.4 % (20.0-45.0); MEAN CORPUSCULAR VOLUME 87 FL (80-99); MONOCYTES % (AUTO) 12.3 % (1.0-10.0); NEUTROPHILS % (AUTO) 74.1 % (45.0-75.0); PLATELET COUNT 338 K/UL (150-450); RED CELL DISTRIBUTION WIDTH 12.9 % (11.6-14.8); WHITE BLOOD COUNT 8.7 K/UL (4.8-10.8)
--- NOTE | 2018-07-07 08:34 | NUR ---
CASE MANAGEMENT: REVIEW 07/07/2018 SI:LEFT LOWER LOBE PNA. T 97.8 HR 84 RR 19 B/P 142/95 SATS 99% ON 2L/NC AML PENDING IS: IVF @ 75 mL/HR LOPRESSOR GT Q8H FLOMAX PO QHS PROSCAR PO QD VANCO IV Q12H ZOSYNIV Q8H TELE STATUS DCP: PATIENT TO BE DISCHARGED TO SNF ONCE MEDICALLY CLEARED. PLAN OF CARE: IVF AND IV ANTIBx
[2018-07-07 08:52] LABS: ALANINE AMINOTRANSFERASE 20 U/L (12-78); ALBUMIN 2.9 G/DL (3.4-5.0); ALKALINE PHOSPHATASE 201 U/L (46-116); ANION GAP 9 mmol/L (5-15); ASPARTATE AMINO TRANSFERASE 17 U/L (15-37); BILIRUBIN,DIRECT 0.2 MG/DL (0.0-0.3); BILIRUBIN,TOTAL 0.6 MG/DL (0.2-1.0); BLOOD UREA NITROGEN 10 mg/dL (7-18); CALCIUM 8.5 MG/DL (8.5-10.1); CARBON DIOXIDE 26 MMOL/L (21-32); CHLORIDE 99 MMOL/L (98-107); CREATININE 0.7 MG/DL (0.55-1.30); POTASSIUM 3.7 MMOL/L (3.5-5.1); SODIUM 133 MMOL/L (136-145)
[2018-07-07] MEDS: Albuterol ud Inhalation HHN PRN (09:02)
--- NOTE | 2018-07-07 09:45 | Pulmonology Progress Note ---
Assessment/Plan Assessment/Plan uti sepsis ? 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 ST asymptomatic resolved IVF home meds via GT TF wound care IV abx FU cultures nebs Subjective ROS Limited/Unobtainable: Yes Constitutional: Reports: fever HEENT: Repors: no symptoms Respiratory: Reports: productive cough, sputum Cardiovascular: Reports: no symptoms Gastrointestinal/Abdominal: Reports: no symptoms Allergies: Coded Allergies: NO KNOWN ALLERGIES (Unverified Allergy, Unknown, 03/02/15) Subjective stillw eak and ill appearing no distress bp stable positive fever no cp nv or bleeding tolerating tf pt wtih cva expressive aphasia and right HP on abx Objective Last 24 Hour Vital Signs Date Time Temp Pulse Resp B/P (MAP) Pulse Ox O2 Delivery O2 Flow Rate FiO2 07/07/18 09:05 99 20 99 Nasal Cannula 2.0 28 07/07/18 09:04 100 20 98 Nasal Cannula 2.0 21 07/07/18 07:48 97.8 84 19 142/95 (111) 99 07/07/18 07:35 74 20 Nasal Cannula 2.0 28 07/07/18 07:03 Nasal Cannula 2.0 07/07/18 05:32 105 143/90 07/07/18 04:00 105 07/07/18 04:00 97.8 105 19 143/90 (107) 99 07/07/18 00:07 98.5 106 19 126/88 (101) 99 07/07/18 00:00 99 07/06/18 22:23 101 118/77 07/06/18 21:15 99.0 07/06/18 21:01 99 07/06/18 21:00 99.0 101 20 118/77 (91) 07/06/18 21:00 Nasal Cannula 2.0 07/06/18 20:35 182/127 07/06/18 20:00 100.0 115 20 182/127 (145) 07/06/18 20:00 117 07/06/18 19:41 101 20 Nasal Cannula 2.0 28 07/06/18 16:25 98.1 104 20 149/109 (122) 07/06/18 15:59 114 20 99 Nasal Cannula 2.0 28 07/06/18 15:48 108 20 98 Nasal Cannula 2.0 07/06/18 13:40 115 138/101 07/06/18 12:51 97.0 115 20 138/101 (113) 07/06/18 11:05 112 20 99 Room Air 21 07/06/18 10:54 110 20 99 Nasal Cannula 2.0 21 Intake and Output 07/06/18 07/07/18 19:00 07:00 Intake Total 1442.416 ml Output Total 700 ml 1000 ml Balance 742.416 ml -1000 ml Intake Free Water 200 ml IV Total 852.416 ml Tube Feeding 390 ml Output Urine Total 700 ml 1000 ml # Bowel Movements 1 General Appearance: cachetic HEENT: atraumatic, anicteric Respiratory/Chest: rhonchi Cardiovascular: tachycardia, edema Abdomen: soft, non tender, no organomegaly Microbiology Date/Time Source Procedure Growth Status 07/05/18 16:43 Blood Blood Culture - Preliminary NO GROWTH AFTER 24 HOURS Resulted 07/05/18 16:40 Blood Blood Culture - Preliminary NO GROWTH AFTER 24 HOURS Resulted 07/06/18 07:00 Indwelling Cath Urine Culture - Preliminary Gram Negative Ravindra Resulted 07/05/18 16:40 Urine,Clean Catch Urine Culture - Final Escherichia Coli - Esbl Complete Laboratory Tests 07/07/18 08:07: White Blood Count 8.7, Red Blood Count 4.50L, Hemoglobin 13.4L, Hematocrit 39.3L , Mean Corpuscular Volume 87, Mean Corpuscular Hemoglobin 29.8, Mean Corpuscular Hemoglobin Concent 34.1, Red Cell Distribution Width 12.9, Platelet Count 338, Mean Platelet Volume 6.2L, Neutrophils (%) (Auto) 74.1, Lymphocytes ( %) (Auto) 9.4L, Monocytes (%) (Auto) 12.3H, Eosinophils (%) (Auto) 2.8, Basophils (%) (Auto) 1.4, Sodium Level 133L, Potassium Level 3.7, Chloride Level 99, Carbon Dioxide Level 26, Anion Gap 9, Blood Urea Nitrogen 10, Creatinine 0.7, Estimat Glomerular Filtration Rate > 60, Glucose Level 174H, Calcium Level 8.5, Magnesium Level 2.3, Total Bilirubin 0.6, Direct Bilirubin 0.2, Aspartate Amino Transf (AST/SGOT) 17, Alanine Aminotransferase (ALT/SGPT) 20, Alkaline Phosphatase 201H, Troponin I 0.003, Pro-B-Type Natriuretic Peptide 598H, Total Protein 6.8, Albumin 2.9L Current Medications Medications (Trade) Dose Ordered Sig/Kehinde Route PRN Reason Start Time Stop Time Status Last Admin Dose Admin Acetaminophen (Tylenol) 650 mg Q6H PRN ORAL Mild Pain/Temp > 100.5 07/06/18 10:45 08/05/18 04:44 07/06/18 20:43 Acetaminophen/ Hydrocodone Bitart ([place] 5/325) 1 tab Q4H PRN GT Severe Pain (Pain Scale 7-10) 07/06/18 08:15 07/13/18 00:14 Albuterol Sulfate (Proventil) 2.5 mg Q4H PRN HHN Shortness of Breath 07/06/18 08:15 07/11/18 00:14 07/07/18 09:02 Calcium Carbonate (Tums) 600 mg DAILY GT 07/06/18 09:00 08/05/18 08:59 07/07/18 08:13 Clonidine HCl (Catapres tab) 0.2 mg Q4H PRN GT For SBP >170 07/06/18 08:15 08/05/18 00:14 07/06/18 20:35 Docusate Sodium (Colace) 100 mg DAILY GT 07/06/18 09:00 08/05/18 08:59 07/07/18 08:14 Finasteride (Proscar) 5 mg DAILY ORAL 07/06/18 09:00 08/05/18 08:59 07/07/18 08:14 Lansoprazole (Prevacid) 30 mg DAILY GT 07/06/18 09:00 08/05/18 08:59 07/07/18 08:14 Metoprolol Tartrate (Lopressor) 100 mg EVERY 8 HOURS GT 07/06/18 06:30 08/05/18 05:59 07/07/18 05:32 Ondansetron HCl (Zofran) 4 mg Q6H PRN GT Nausea & Vomiting 07/06/18 12:15 08/05/18 00:14 Piperacillin Sod/ Tazobactam Sod 3.375 gm/Sodium Chloride 110 ml @ 27.5 mls/hr Q8H IVPB 07/06/18 09:00 07/13/18 00:59 07/07/18 08:49 Polyethylene Glycol (Miralax) 17 gm DAILY GT 07/06/18 09:00 08/05/18 08:59 07/07/18 08:14 Sennosides (Senokot) 8.6 mg BEDTIME GT 07/06/18 21:00 08/05/18 20:59 07/06/18 20:33 Sodium Chloride 1,000 ml @ 75 mls/hr [id number] IV 07/06/18 14:00 08/05/18 13:59 07/07/18 03:15 Tamsulosin HCl (Flomax) 0.4 mg BEDTIME ORAL 07/06/18 21:00 08/05/18 20:59 07/06/18 20:34 Vancomycin HCl (Vanco rx to dose) 1 ea DAILY PRN MISC Per rx protocol 07/06/18 09:00 08/05/18 00:14 Vancomycin HCl 1 gm/Dextrose 275 ml @ 183.708 mls/hr Q12H IVPB 07/06/18 18:00 07/11/18 05:59 07/07/18 05:32 Indigo Alarcon DO Jul 07, 2018 09:45
--- NOTE | 2018-07-07 10:02 | Urology Progress Note ---
Assessment/Plan Assessment/Plan hx of right ureteral calc hydro hx BPH hx urinary retention scrotal edema pyuria/UTI hematuria proteinuria possible neurogenic bladder monitor clinically abx as ordered f/u on urine and blood cx's quiles for now flomax and proscar may need nephrostomy Subjective Allergies: Coded Allergies: NO KNOWN ALLERGIES (Unverified Allergy, Unknown, 03/02/15) Subjective all noted, looks comfortable Objective Last 24 Hour Vital Signs Date Time Temp Pulse Resp B/P (MAP) Pulse Ox O2 Delivery O2 Flow Rate FiO2 07/07/18 09:05 99 20 99 Nasal Cannula 2.0 28 07/07/18 09:04 100 20 98 Nasal Cannula 2.0 07/07/18 07:48 90 07/07/18 07:48 97.8 84 19 142/95 (111) 99 07/07/18 07:35 74 20 Nasal Cannula 2.0 28 07/07/18 07:03 Nasal Cannula 2.0 07/07/18 05:32 105 143/90 07/07/18 04:00 105 07/07/18 04:00 97.8 105 19 143/90 (107) 99 07/07/18 00:07 98.5 106 19 126/88 (101) 99 07/07/18 00:00 99 07/06/18 22:23 101 118/77 07/06/18 21:15 99.0 07/06/18 21:01 99 07/06/18 21:00 99.0 101 20 118/77 (91) 07/06/18 21:00 Nasal Cannula 2.0 07/06/18 20:35 182/127 07/06/18 20:00 100.0 115 20 182/127 (145) 07/06/18 20:00 117 07/06/18 19:41 101 20 Nasal Cannula 2.0 28 07/06/18 16:25 98.1 104 20 149/109 (122) 07/06/18 15:59 114 20 99 Nasal Cannula 2.0 28 07/06/18 15:48 108 20 98 Nasal Cannula 2.0 07/06/18 13:40 115 138/101 07/06/18 12:51 97.0 115 20 138/101 (113) 07/06/18 11:05 112 20 99 Room Air 07/06/18 10:54 110 20 99 Nasal Cannula 2.0 21 Intake and Output 07/06/18 07/07/18 19:00 07:00 Intake Total 1442.416 ml Output Total 700 ml 1000 ml Balance 742.416 ml -1000 ml Intake Free Water 200 ml IV Total 852.416 ml Tube Feeding 390 ml Output Urine Total 700 ml 1000 ml # Bowel Movements 1 Microbiology Date/Time Source Procedure Growth Status 07/05/18 16:43 Blood Blood Culture - Preliminary NO GROWTH AFTER 24 HOURS Resulted 07/06/18 07:00 Indwelling Cath Urine Culture - Preliminary Gram Negative Ravindra Resulted Current Medications Medications (Trade) Dose Ordered Sig/Kehinde Route PRN Reason Start Time Stop Time Status Last Admin Dose Admin Acetaminophen (Tylenol) 650 mg Q6H PRN ORAL Mild Pain/Temp > 100.5 07/06/18 10:45 08/05/18 04:44 07/06/18 20:43 Acetaminophen/ Hydrocodone Bitart ([place] 5/325) 1 tab Q4H PRN GT Severe Pain (Pain Scale 7-10) 07/06/18 08:15 07/13/18 00:14 Albuterol Sulfate (Proventil) 2.5 mg Q4H PRN HHN Shortness of Breath 07/06/18 08:15 07/11/18 00:14 07/07/18 09:02 Calcium Carbonate (Tums) 600 mg DAILY GT 07/06/18 09:00 08/05/18 08:59 07/07/18 08:13 Clonidine HCl (Catapres tab) 0.2 mg Q4H PRN GT For SBP >170 07/06/18 08:15 08/05/18 00:14 07/06/18 20:35 Docusate Sodium (Colace) 100 mg DAILY GT 07/06/18 09:00 08/05/18 08:59 07/07/18 08:14 Finasteride (Proscar) 5 mg DAILY ORAL 07/06/18 09:00 08/05/18 08:59 07/07/18 08:14 Lansoprazole (Prevacid) 30 mg DAILY GT 07/06/18 09:00 08/05/18 08:59 07/07/18 08:14 Metoprolol Tartrate (Lopressor) 100 mg EVERY 8 HOURS GT 07/06/18 06:30 08/05/18 05:59 07/07/18 05:32 Ondansetron HCl (Zofran) 4 mg Q6H PRN GT Nausea & Vomiting 07/06/18 12:15 08/05/18 00:14 Piperacillin Sod/ Tazobactam Sod 3.375 gm/Sodium Chloride 110 ml @ 27.5 mls/hr Q8H IVPB 07/06/18 09:00 07/13/18 00:59 07/07/18 08:49 Polyethylene Glycol (Miralax) 17 gm DAILY GT 07/06/18 09:00 08/05/18 08:59 07/07/18 08:14 Sennosides (Senokot) 8.6 mg BEDTIME GT 07/06/18 21:00 08/05/18 20:59 07/06/18 20:33 Sodium Chloride 1,000 ml @ 75 mls/hr [id number] IV 07/06/18 14:00 08/05/18 13:59 07/07/18 03:15 Tamsulosin HCl (Flomax) 0.4 mg BEDTIME ORAL 07/06/18 21:00 08/05/18 20:59 07/06/18 20:34 Vancomycin HCl (Vanco rx to dose) 1 ea DAILY PRN MISC Per rx protocol 07/06/18 09:00 08/05/18 00:14 Vancomycin HCl 1 gm/Dextrose 275 ml @ 183.708 mls/hr Q12H IVPB 07/06/18 18:00 07/11/18 05:59 07/07/18 05:32 Laboratory Tests 07/07/18 08:07: White Blood Count 8.7, Red Blood Count 4.50L, Hemoglobin 13.4L, Hematocrit 39.3L , Mean Corpuscular Volume 87, Mean Corpuscular Hemoglobin 29.8, Mean Corpuscular Hemoglobin Concent 34.1, Red Cell Distribution Width 12.9, Platelet Count 338, Mean Platelet Volume 6.2L, Neutrophils (%) (Auto) 74.1, Lymphocytes ( %) (Auto) 9.4L, Monocytes (%) (Auto) 12.3H, Eosinophils (%) (Auto) 2.8, Basophils (%) (Auto) 1.4, Sodium Level 133L, Potassium Level 3.7, Chloride Level 99, Carbon Dioxide Level 26, Anion Gap 9, Blood Urea Nitrogen 10, Creatinine 0.7, Estimat Glomerular Filtration Rate > 60, Glucose Level 174H, Calcium Level 8.5, Magnesium Level 2.3, Total Bilirubin 0.6, Direct Bilirubin 0.2, Aspartate Amino Transf (AST/SGOT) 17, Alanine Aminotransferase (ALT/SGPT) 20, Alkaline Phosphatase 201H, Troponin I 0.003, Pro-B-Type Natriuretic Peptide 598H, Total Protein 6.8, Albumin 2.9L Height (Feet): 5 Height (Inches): 8.00 Weight (Pounds): 180 Objective quiles indwelling urine is grossly yellow scrotal edema stable renal u/s (07/06) noted Freedom Paris MD Jul 07, 2018 10:02
--- NOTE | 2018-07-07 11:36 | Diagnostic Imaging Report ---
EXAM: XR Chest, 1 View CLINICAL HISTORY: COUGH TECHNIQUE: Frontal view of the chest. COMPARISON: Chest x-ray 07/05/18 1652 FINDINGS: Lungs: May be mild vascular congestion. No focal infiltrate or consolidation. Hypoventilatory lungs. Pleural space: Unremarkable. No pneumothorax. Heart: Cardiomegaly. Mediastinum: Unremarkable. Bones/joints: Old bilateral rib fractures. Old left clavicle fracture. IMPRESSION: No significant interval change. May be mild vascular congestion. No focal infiltrate or consolidation.
--- NOTE | 2018-07-07 12:40 | NUR ---
RD ASSESSMENT & RECOMMENDATIONS SEE CARE ACTIVITY FOR COMPLETE ASSESSMENT DAILY ESTIMATED NEEDS: Needs based on Sepsis 60kg 25-35 kcals/kg 3102-2005 total kcals 1.2-2 g protein/kg 72-120 g total protein 25-30 mL/kg 5402-6777 total fluid mLs NUTRITION DIAGNOSIS: 1) Swallowing difficulty r/t dysphagia, h/o CVA as evidenced by pt is PEG dep for all nutritional needs. 2) Altered nutrition related lab values r/t hyperglycemia as evidenced by elev BG (160-174) CURRENT TF: Jevity 1.2 @65ml x20 hrs ENTERAL NUTRITION RECOMMENDATIONS: Glucerna 1.2 @ 65ml/hr x 20hrs + Prosource qdaily to provide 1300ml, 1560kcal, 78g + 11g prot, 1047ml free H2O - REC TF CHANGE TO-> Glucerna 1.2 for glycemic control. - Start at 25ml/hr for 4-6 hours, advance by 10ml/hr every 4-6 hours as tolerated to goal rate of 65ml/[id number] -HOB>30degrees, flush per MD ADDITIONAL RECOMMENDATIONS: 1) RE-calibrate bed scale-> per SNF wt of 132# 2) Add PROSOURCE 1 pack daily to better meet est prot needs 3) Check A1C (adm w/ elev BG) 4) Consult RD for any skin breakdown 5) Monitor lytes daily on TF/ replete as needed
[2018-07-07] MEDS ORDERED: Albuterol ud Inhalation HHN SCH (13:00)
--- NOTE | 2018-07-07 17:02 | NUR ---
NURSE NOTES: pt pulled out iv from right hand, reinserted left upper arm patent with good blood return. pt tolerated well.
--- NOTE | 2018-07-07 19:07 | NUR ---
HAND-OFF: Report given to TRUDY CHOPRA.
--- NOTE | 2018-07-07 19:11 | NUR ---
NURSE NOTES: Got report from Manan Lezama. Pt in stable condition. No s/s of distress or discomfort noted. Pt resting in bed comfortably. Bed in low and locked position, call light within reach, bedside table within reach. Continue to monitor.
[2018-07-07] MEDS: Albuterol ud Inhalation HHN SCH ×2 (19:37→23:26)
[2018-07-07] MEDS: Sennosides 8.6mg tab GT SCH (21:01)
[2018-07-07] MEDS: Tamsulosin 0.4mg cap ORAL SCH (21:01)
[2018-07-08] VITALS (7 sets, daily range): BP systolic 116–178; BP diastolic 59–116
[2018-07-08] MEDS: Piperacillin/Tazobactam 3.375 GM in NS 110 ML IVPB SCH ×3 (00:56→17:13)
[2018-07-08] MEDS: Albuterol ud Inhalation HHN SCH ×6 (03:20→23:54)
[2018-07-08] MEDS: Vancomycin 1 GM in D5W 275 ML IVPB SCH ×2 (05:27→17:13)
[2018-07-08 07:23] LABS: ANION GAP 8 mmol/L (5-15); BLOOD UREA NITROGEN 7 mg/dL (7-18); CALCIUM 8.4 MG/DL (8.5-10.1); CARBON DIOXIDE 25 MMOL/L (21-32); CHLORIDE 100 MMOL/L (98-107); CREATININE 0.7 MG/DL (0.55-1.30); POTASSIUM 3.9 MMOL/L (3.5-5.1); SODIUM 133 MMOL/L (136-145)
[2018-07-08 07:26] LABS: BASOPHILS % (AUTO) 1.4 % (0.0-2.0); EOSINOPHILS % (AUTO) 6.2 % (0.0-3.0); HEMATOCRIT 38.1 % (42.0-52.0); HEMOGLOBIN 13.2 G/DL (14.2-18.0); LYMPHOCYTES % (AUTO) 11.3 % (20.0-45.0); MEAN CORPUSCULAR VOLUME 88 FL (80-99); MONOCYTES % (AUTO) 10.4 % (1.0-10.0); NEUTROPHILS % (AUTO) 70.7 % (45.0-75.0); PLATELET COUNT 351 K/UL (150-450); RED BLOOD COUNT 4.32 M/UL (4.70-6.10); RED CELL DISTRIBUTION WIDTH 13.2 % (11.6-14.8); WHITE BLOOD COUNT 7.4 K/UL (4.8-10.8)
--- NOTE | 2018-07-08 07:35 | NUR ---
HAND-OFF: Report given to coretz chacon. endorsed plan of care.
--- NOTE | 2018-07-08 07:36 | NUR ---
NURSE NOTES: Pt received from Pito Pinon RN. Pt is alert and oriented x2, nonverbal but able to answer by nodding and shaking head. No complaints or s/s of pain, SOB, or n/v. Lynn draining to clear and yellow urine. Gtube feed tolerated - 15mL gastric residual, no abd distention or pain. Aspiration precautions implemented - HOB elevated and suction at bedside. IV site asymptomatic and patent, running to NS at 75. Bed in lowest position, call light and belongings within reach.
--- NOTE | 2018-07-08 07:53 | Urology Progress Note ---
Assessment/Plan Assessment/Plan hx of right ureteral calc hydro hx BPH hx urinary retention scrotal edema pyuria/UTI hematuria proteinuria possible neurogenic bladder monitor clinically abx as ordered f/u on urine and blood cx's quiles for now flomax and proscar may need nephrostomy Subjective Allergies: Coded Allergies: NO KNOWN ALLERGIES (Unverified Allergy, Unknown, 03/02/15) Subjective all noted, looks comfortable Objective Last 24 Hour Vital Signs Date Time Temp Pulse Resp B/P (MAP) Pulse Ox O2 Delivery O2 Flow Rate FiO2 07/08/18 06:29 140/95 (110) 07/08/18 05:26 86 145/100 07/08/18 04:55 86 07/08/18 04:48 97.9 102 16 145/100 (115) 98 07/08/18 03:32 96 18 99 Nasal Cannula 2.0 28 07/08/18 03:20 94 18 98 Nasal Cannula 2.0 28 07/08/18 00:00 77 07/08/18 00:00 97.3 91 18 155/102 (119) 98 07/07/18 23:36 90 18 99 Nasal Cannula 2.0 28 07/07/18 23:26 89 18 99 Nasal Cannula 2.0 28 07/07/18 22:30 90 147/99 (115) 07/07/18 21:01 93 153/100 07/07/18 21:00 Nasal Cannula 2.0 07/07/18 20:00 90 07/07/18 20:00 97.5 98 18 153/100 (117) 99 07/07/18 19:47 92 18 99 Nasal Cannula 2.0 28 07/07/18 19:37 92 18 99 Nasal Cannula 2.0 28 07/07/18 19:37 Nasal Cannula 2.0 28 07/07/18 19:37 99 Nasal Cannula 2.0 28 07/07/18 15:48 98.6 96 19 147/103 (118) 99 07/07/18 15:41 98 07/07/18 14:01 100 20 99 Nasal Cannula 2.0 28 07/07/18 13:58 102 20 98 Nasal Cannula 2.0 21 07/07/18 13:10 101 154/102 07/07/18 12:11 98.6 101 19 154/102 (119) 99 07/07/18 11:48 100 07/07/18 09:05 99 20 99 Nasal Cannula 2.0 28 07/07/18 09:04 100 20 98 Nasal Cannula 2.0 21 Intake and Output 07/07/18 07/08/18 19:00 07:00 Intake Total 1060.0 ml Output Total 1100 ml Balance -40.0 ml Intake Free Water 150 ml IV Total 390.0 ml Tube Feeding 520 ml Output Urine Total 1100 ml Microbiology Date/Time Source Procedure Growth Status 07/05/18 16:43 Blood Blood Culture - Preliminary NO GROWTH AFTER 48 HOURS Resulted 07/06/18 07:00 Indwelling Cath Urine Culture - Preliminary Gram Negative Ravindra Resulted Current Medications Medications (Trade) Dose Ordered Sig/Kehinde Route PRN Reason Start Time Stop Time Status Last Admin Dose Admin Acetaminophen (Tylenol) 650 mg Q6H PRN ORAL Mild Pain/Temp > 100.5 07/06/18 10:45 08/05/18 04:44 07/06/18 20:43 Acetaminophen/ Hydrocodone Bitart ([place] 5/325) 1 tab Q4H PRN GT Severe Pain (Pain Scale 7-10) 07/06/18 08:15 07/13/18 00:14 Albuterol Sulfate (Proventil) 2.5 mg Q4HRT HHN 07/07/18 19:00 07/11/18 12:59 07/08/18 03:20 Calcium Carbonate (Tums) 600 mg DAILY GT 07/06/18 09:00 08/05/18 08:59 07/07/18 08:13 Clonidine HCl (Catapres tab) 0.2 mg Q4H PRN GT For SBP >170 07/06/18 08:15 08/05/18 00:14 07/06/18 20:35 Docusate Sodium (Colace) 100 mg DAILY GT 07/06/18 09:00 08/05/18 08:59 07/07/18 08:14 Finasteride (Proscar) 5 mg DAILY ORAL 07/06/18 09:00 08/05/18 08:59 07/07/18 08:14 Lansoprazole (Prevacid) 30 mg DAILY GT 07/06/18 09:00 08/05/18 08:59 07/07/18 08:14 Metoprolol Tartrate (Lopressor) 100 mg EVERY 8 HOURS GT 07/06/18 06:30 08/05/18 05:59 07/08/18 05:26 Ondansetron HCl (Zofran) 4 mg Q6H PRN GT Nausea & Vomiting 07/06/18 12:15 08/05/18 00:14 Piperacillin Sod/ Tazobactam Sod 3.375 gm/Sodium Chloride 110 ml @ 27.5 mls/hr Q8H IVPB 07/06/18 09:00 07/13/18 00:59 07/08/18 00:56 Polyethylene Glycol (Miralax) 17 gm DAILY GT 07/06/18 09:00 08/05/18 08:59 07/07/18 08:14 Sennosides (Senokot) 8.6 mg BEDTIME GT 07/06/18 21:00 08/05/18 20:59 07/07/18 21:01 Sodium Chloride 1,000 ml @ 75 mls/hr [id number] IV 07/06/18 14:00 08/05/18 13:59 07/08/18 05:26 Tamsulosin HCl (Flomax) 0.4 mg BEDTIME ORAL 07/06/18 21:00 08/05/18 20:59 07/07/18 21:01 Vancomycin HCl (Vanco rx to dose) 1 ea DAILY PRN MISC Per rx protocol 07/06/18 09:00 08/05/18 00:14 Vancomycin HCl 1 gm/Dextrose 275 ml @ 183.708 mls/hr Q12H IVPB 07/06/18 18:00 07/11/18 05:59 07/08/18 05:27 Laboratory Tests 07/07/18 08:07: White Blood Count 8.7, Red Blood Count 4.50L, Hemoglobin 13.4L, Hematocrit 39.3L , Mean Corpuscular Volume 87, Mean Corpuscular Hemoglobin 29.8, Mean Corpuscular Hemoglobin Concent 34.1, Red Cell Distribution Width 12.9, Platelet Count 338, Mean Platelet Volume 6.2L, Neutrophils (%) (Auto) 74.1, Lymphocytes ( %) (Auto) 9.4L, Monocytes (%) (Auto) 12.3H, Eosinophils (%) (Auto) 2.8, Basophils (%) (Auto) 1.4, Sodium Level 133L, Potassium Level 3.7, Chloride Level 99, Carbon Dioxide Level 26, Anion Gap 9, Blood Urea Nitrogen 10, Creatinine 0.7, Estimat Glomerular Filtration Rate > 60, Glucose Level 174H, Calcium Level 8.5, Magnesium Level 2.3, Total Bilirubin 0.6, Direct Bilirubin 0.2, Aspartate Amino Transf (AST/SGOT) 17, Alanine Aminotransferase (ALT/SGPT) 20, Alkaline Phosphatase 201H, Troponin I 0.003, Pro-B-Type Natriuretic Peptide 598H, Total Protein 6.8, Albumin 2.9L 07/07/18 15:20: Vancomycin Level Trough 14.1H 07/08/18 05:40: White Blood Count 7.4, Red Blood Count 4.32L, Hemoglobin 13.2L, Hematocrit 38.1L , Mean Corpuscular Volume 88, Mean Corpuscular Hemoglobin 30.5, Mean Corpuscular Hemoglobin Concent 34.6, Red Cell Distribution Width 13.2, Platelet Count 351, Mean Platelet Volume 6.1L, Neutrophils (%) (Auto) 70.7, Lymphocytes ( %) (Auto) 11.3L, Monocytes (%) (Auto) 10.4H, Eosinophils (%) (Auto) 6.2H, Basophils (%) (Auto) 1.4, Sodium Level 133L, Potassium Level 3.9, Chloride Level 100, Carbon Dioxide Level 25, Anion Gap 8, Blood Urea Nitrogen 7, Creatinine 0.7, Estimat Glomerular Filtration Rate > 60, Glucose Level 165H, Calcium Level 8.4L Height (Feet): 5 Height (Inches): 8.00 Weight (Pounds): 180 Objective quiles indwelling urine is grossly yellow scrotal edema stable renal u/s (07/06) noted Freedom Paris MD Jul 08, 2018 07:53
[2018-07-08] MEDS: Tums 500mg GT SCH (08:44)
[2018-07-08] MEDS: Docusate 100mg/10ml Liq GT SCH (08:45)
[2018-07-08] MEDS: Miralax 17gm pkt GT SCH (08:45)
--- NOTE | 2018-07-08 09:35 | NUR ---
NURSE NOTES: Received phone call from Sheila Huber from lab regarding pt's positive MRSA of nares.
--- NOTE | 2018-07-08 09:52 | Pulmonology Progress Note ---
Assessment/Plan Assessment/Plan uti sepsis ? 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 ST asymptomatic resolved IVF home meds via GT TF wound care IV abx FU cultures [facility] urology notes reviewed Subjective Interval Events: None reported; seen by urology Constitutional: Reports: no symptoms HEENT: Repors: no symptoms Respiratory: Reports: no symptoms Cardiovascular: Reports: no symptoms Gastrointestinal/Abdominal: Reports: no symptoms Genitourinary: Reports: no symptoms Allergies: Coded Allergies: NO KNOWN ALLERGIES (Unverified Allergy, Unknown, 03/02/15) Objective Last 24 Hour Vital Signs Date Time Temp Pulse Resp B/P (MAP) Pulse Ox O2 Delivery O2 Flow Rate FiO2 07/08/18 09:00 Nasal Cannula 2.0 07/08/18 08:05 91 16 99 Nasal Cannula 2.0 28 07/08/18 08:00 98.8 82 18 155/103 (120) 99 07/08/18 07:55 91 20 99 Nasal Cannula 2.0 28 07/08/18 07:55 Nasal Cannula 2.0 28 07/08/18 07:54 99 Nasal Cannula 2.0 28 07/08/18 06:29 140/95 (110) 07/08/18 05:26 86 145/100 07/08/18 04:55 86 07/08/18 04:48 97.9 102 16 145/100 (115) 98 07/08/18 03:32 96 18 99 Nasal Cannula 2.0 28 07/08/18 03:20 94 18 98 Nasal Cannula 2.0 28 07/08/18 00:00 77 07/08/18 00:00 97.3 91 18 155/102 (119) 98 07/07/18 23:36 90 18 99 Nasal Cannula 2.0 28 07/07/18 23:26 89 18 99 Nasal Cannula 2.0 28 07/07/18 22:30 90 147/99 (115) 07/07/18 21:01 93 153/100 07/07/18 21:00 Nasal Cannula 2.0 07/07/18 20:00 90 07/07/18 20:00 97.5 98 18 153/100 (117) 99 07/07/18 19:47 92 18 99 Nasal Cannula 2.0 28 07/07/18 19:37 92 18 99 Nasal Cannula 2.0 28 07/07/18 19:37 Nasal Cannula 2.0 28 07/07/18 19:37 99 Nasal Cannula 2.0 28 07/07/18 15:48 98.6 96 19 147/103 (118) 99 07/07/18 15:41 98 07/07/18 14:01 100 20 99 Nasal Cannula 2.0 28 07/07/18 13:58 102 20 98 Nasal Cannula 2.0 21 07/07/18 13:10 101 154/102 07/07/18 12:11 98.6 101 19 154/102 (119) 99 07/07/18 11:48 100 Intake and Output 07/07/18 07/08/18 19:00 07:00 Intake Total 1060.0 ml Output Total 1100 ml Balance -40.0 ml Intake Free Water 150 ml IV Total 390.0 ml Tube Feeding 520 ml Output Urine Total 1100 ml General Appearance: no acute distress HEENT: normocephalic Respiratory/Chest: chest wall non-tender, lungs clear Cardiovascular: normal peripheral pulses, normal rate Abdomen: normal bowel sounds, soft, non tender Microbiology Date/Time Source Procedure Growth Status 07/05/18 16:43 Blood Blood Culture - Preliminary NO GROWTH AFTER 48 HOURS Resulted 07/05/18 16:40 Blood Blood Culture - Preliminary NO GROWTH AFTER 48 HOURS Resulted 07/05/18 16:40 Nasal Nares MRSA Culture - Final Staphylococcus Aureus - Mrsa Complete 07/06/18 07:00 Indwelling Cath Urine Culture - Preliminary Gram Negative Ravindra Resulted 07/05/18 16:40 Urine,Clean Catch Urine Culture - Final Escherichia Coli - Esbl Complete 07/05/18 16:40 Rectum VRE Culture - Final NO VANCOMYCIN RESISTANT ENTEROCOCCUS ... Complete 07/05/18 16:40 Rectum - Final NO CARBAPENEM-RESISTANT ENTEROBACTERI... Complete Laboratory Tests 07/07/18 15:20: Vancomycin Level Trough 14.1H 07/08/18 05:40: White Blood Count 7.4, Red Blood Count 4.32L, Hemoglobin 13.2L, Hematocrit 38.1L , Mean Corpuscular Volume 88, Mean Corpuscular Hemoglobin 30.5, Mean Corpuscular Hemoglobin Concent 34.6, Red Cell Distribution Width 13.2, Platelet Count 351, Mean Platelet Volume 6.1L, Neutrophils (%) (Auto) 70.7, Lymphocytes ( %) (Auto) 11.3L, Monocytes (%) (Auto) 10.4H, Eosinophils (%) (Auto) 6.2H, Basophils (%) (Auto) 1.4, Sodium Level 133L, Potassium Level 3.9, Chloride Level 100, Carbon Dioxide Level 25, Anion Gap 8, Blood Urea Nitrogen 7, Creatinine 0.7, Estimat Glomerular Filtration Rate > 60, Glucose Level 165H, Calcium Level 8.4L Current Medications Medications (Trade) Dose Ordered Sig/Kehinde Route PRN Reason Start Time Stop Time Status Last Admin Dose Admin Acetaminophen (Tylenol) 650 mg Q6H PRN ORAL Mild Pain/Temp > 100.5 07/06/18 10:45 08/05/18 04:44 07/06/18 20:43 Acetaminophen/ Hydrocodone Bitart ([place] 5/325) 1 tab Q4H PRN GT Severe Pain (Pain Scale 7-10) 07/06/18 08:15 07/13/18 00:14 Albuterol Sulfate (Proventil) 2.5 mg Q4HRT HHN 07/07/18 19:00 07/11/18 12:59 07/08/18 07:55 Calcium Carbonate (Tums) 600 mg DAILY GT 07/06/18 09:00 08/05/18 08:59 07/08/18 08:44 Clonidine HCl (Catapres tab) 0.2 mg Q4H PRN GT For SBP >170 07/06/18 08:15 08/05/18 00:14 07/06/18 20:35 Docusate Sodium (Colace) 100 mg DAILY GT 07/06/18 09:00 08/05/18 08:59 07/08/18 08:45 Finasteride (Proscar) 5 mg DAILY ORAL 07/06/18 09:00 08/05/18 08:59 07/08/18 08:45 Lansoprazole (Prevacid) 30 mg DAILY GT 07/06/18 09:00 08/05/18 08:59 07/08/18 08:45 Metoprolol Tartrate (Lopressor) 100 mg EVERY 8 HOURS GT 07/06/18 06:30 08/05/18 05:59 07/08/18 05:26 Ondansetron HCl (Zofran) 4 mg Q6H PRN GT Nausea & Vomiting 07/06/18 12:15 2/18/19 00:14 Piperacillin Sod/ Tazobactam Sod 3.375 gm/Sodium Chloride 110 ml @ 27.5 mls/hr Q8H IVPB 07/06/18 09:00 07/13/18 00:59 07/08/18 08:44 Polyethylene Glycol (Miralax) 17 gm DAILY GT 07/06/18 09:00 08/05/18 08:59 07/08/18 08:45 Sennosides (Senokot) 8.6 mg BEDTIME GT 07/06/18 21:00 08/05/18 20:59 07/07/18 21:01 Sodium Chloride 1,000 ml @ 75 mls/hr [id number] IV 07/06/18 14:00 08/05/18 13:59 07/08/18 05:26 Tamsulosin HCl (Flomax) 0.4 mg BEDTIME ORAL 07/06/18 21:00 08/05/18 20:59 07/07/18 21:01 Vancomycin HCl (Vanco rx to dose) 1 ea DAILY PRN MISC Per rx protocol 07/06/18 09:00 08/05/18 00:14 Vancomycin HCl 1 gm/Dextrose 275 ml @ 183.708 mls/hr Q12H IVPB 07/06/18 18:00 07/11/18 05:59 07/08/18 05:27 Toño Jane MD Jul 08, 2018 09:52
--- NOTE | 2018-07-08 16:58 | NUR ---
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 98.0 HR 82 RR 20 B/P 116/59 2L NC NA 133 IS: ZOSYN IV VANCO IV TELE STATUS
--- NOTE | 2018-07-08 19:15 | NUR ---
HAND-OFF: Report given to Kristian Geronimo RN.
--- NOTE | 2018-07-08 19:20 | NUR ---
NURSE NOTES: Received report from Navneet Mills RN. Pt was resting in the bed w.o any acute disress noted. AO x2-3. patient monitor is on. Bed is on the lowest position and call light is within reach. HOB is elevated more than 45 degree. Zero residual in GT feeding. Will continue to follow the plan of care.
[2018-07-08] MEDS: Sennosides 8.6mg tab GT SCH (21:00)
[2018-07-08] MEDS: Tamsulosin 0.4mg cap ORAL SCH (21:00)
[2018-07-08] MEDS: cloNIDine 0.2mg Tab GT PRN (21:00)
--- NOTE | 2018-07-08 22:44 | Diagnostic Imaging Report ---
APPROVED REPORT CPT Code: 53459 Present Symptoms Shortness of breath BILATERAL: Imaging reveals a patent deep venous system bilaterally. There is no evidence of thrombus within the femoral, popliteal or tibial segments. The greater saphenous veins are also within normal limits. Doppler indicates normal spontaneous flow within these segments.
--- NOTE | 2018-07-08 23:04 | NUR ---
NURSE NOTES: No Residual on NG tube. New feeding bottle of Jevity 1.2 started @ 65 ml/hr . Changed the tubing. Will continue to follow the plan of care.
[2018-07-09] VITALS (7 sets, daily range): BP systolic 143–166; BP diastolic 100–112
[2018-07-09] MEDS: Piperacillin/Tazobactam 3.375 GM in NS 110 ML IVPB SCH ×3 (01:04→18:20)
[2018-07-09] MEDS: Albuterol ud Inhalation HHN SCH ×6 (03:41→22:58)
[2018-07-09] MEDS: Vancomycin 1 GM in D5W 275 ML IVPB SCH ×2 (06:24→17:06)
[2018-07-09] MEDS: cloNIDine 0.2mg Tab GT PRN (06:24)
--- NOTE | 2018-07-09 07:03 | NUR ---
HAND-OFF: Report given to Fatou CHOPRA. No acute distress noted.
--- NOTE | 2018-07-09 07:19 | NUR ---
NURSE NOTES: receive dpatient report from guy chacon. patient is on bed asleep. no acute distress noted. no arrythmias reported during the night.bed is low and locked. will continue plan of care.
[2018-07-09] MEDS: Docusate 100mg/10ml Liq GT SCH (08:23)
[2018-07-09] MEDS: Tums 500mg GT SCH (08:24)
[2018-07-09] MEDS: Miralax 17gm pkt GT SCH (08:24)
--- NOTE | 2018-07-09 09:30 | NUR ---
NURSE NOTES: patient refused to insert another IV line. will continue to monitor.
--- NOTE | 2018-07-09 10:23 | Urology Progress Note ---
Assessment/Plan Assessment/Plan hx of right ureteral calc hydro hx BPH hx urinary retention scrotal edema pyuria/UTI hematuria proteinuria possible neurogenic bladder monitor clinically abx as ordered f/u on blood cx quiles for now flomax and proscar may need nephrostomy Subjective Allergies: Coded Allergies: NO KNOWN ALLERGIES (Unverified Allergy, Unknown, 03/02/15) Subjective all noted, looks comfortable Objective Last 24 Hour Vital Signs Date Time Temp Pulse Resp B/P (MAP) Pulse Ox O2 Delivery O2 Flow Rate FiO2 07/09/18 09:00 Nasal Cannula 2.0 07/09/18 09:00 98.4 79 20 162/109 (126) 98 07/09/18 08:03 87 20 99 Nasal Cannula 2.0 28 07/09/18 07:53 99 Room Air 21 07/09/18 07:53 86 20 99 Room Air 21 07/09/18 07:53 Room Air 21 07/09/18 06:24 81 162/100 07/09/18 06:24 162/100 07/09/18 04:00 97.9 84 19 162/100 (120) 100 07/09/18 04:00 81 07/09/18 03:51 86 18 99 Nasal Cannula 2.0 28 07/09/18 03:41 85 18 99 Nasal Cannula 2.0 28 07/09/18 00:04 70 18 99 Nasal Cannula 2.0 28 07/09/18 00:00 97.7 74 18 143/100 (114) 99 07/09/18 00:00 69 07/08/18 23:54 71 18 98 Nasal Cannula 2.0 28 07/08/18 21:00 85 178/116 07/08/18 21:00 178/116 07/08/18 21:00 Nasal Cannula 2.0 07/08/18 20:44 85 20 99 Nasal Cannula 2.0 28 07/08/18 20:34 88 18 99 Nasal Cannula 2.0 28 07/08/18 20:33 99 Nasal Cannula 2.0 28 07/08/18 20:33 Nasal Cannula 2.0 28 07/08/18 20:00 84 07/08/18 20:00 98.5 85 19 178/116 (136) 97 07/08/18 16:00 77 07/08/18 16:00 97.9 83 24 142/99 (113) 98 07/08/18 15:59 98 20 98 Nasal Cannula 2.0 28 07/08/18 15:49 99 18 98 Nasal Cannula 2.0 28 07/08/18 14:10 82 116/59 07/08/18 12:07 93 20 99 Nasal Cannula 2.0 28 07/08/18 12:00 92 07/08/18 12:00 98.0 82 20 116/59 (78) 96 07/08/18 11:57 93 20 99 Nasal Cannula 2.0 28 Intake and Output 07/08/18 07/09/18 19:00 07:00 Intake Total 455 ml 875 ml Output Total 1350 ml 1000 ml Balance -895 ml -125 ml Tube Feeding 455 ml 715 ml Blood Product 160 ml Output Urine Total 1350 ml 1000 ml # Bowel Movements 1 1 Microbiology Date/Time Source Procedure Growth Status 07/05/18 16:43 Blood Blood Culture - Preliminary NO GROWTH AFTER 72 HOURS Resulted 07/05/18 16:40 Nasal Nares MRSA Culture - Final Staphylococcus Aureus - Mrsa Complete 07/06/18 07:00 Indwelling Cath Urine Culture - Final Pseudomonas Aeruginosa Complete 07/05/18 16:40 Rectum VRE Culture - Final NO VANCOMYCIN RESISTANT ENTEROCOCCUS ... Complete 07/05/18 16:40 Rectum - Final NO CARBAPENEM-RESISTANT ENTEROBACTERI... Complete Current Medications Medications (Trade) Dose Ordered Sig/Kehinde Route PRN Reason Start Time Stop Time Status Last Admin Dose Admin Acetaminophen (Tylenol) 650 mg Q6H PRN ORAL Mild Pain/Temp > 100.5 07/06/18 10:45 08/05/18 04:44 07/08/18 17:18 Acetaminophen/ Hydrocodone Bitart ([place] 5/325) 1 tab Q4H PRN GT Severe Pain (Pain Scale 7-10) 07/06/18 08:15 07/13/18 00:14 Albuterol Sulfate (Proventil) 2.5 mg Q4HRT HHN 07/07/18 19:00 07/11/18 12:59 07/09/18 07:51 Calcium Carbonate (Tums) 500 mg DAILY GT 07/09/18 09:00 08/05/18 08:59 07/09/18 08:24 Clonidine HCl (Catapres tab) 0.2 mg Q4H PRN GT For SBP >170 07/06/18 08:15 08/05/18 00:14 07/09/18 06:24 Docusate Sodium (Colace) 100 mg DAILY GT 07/06/18 09:00 08/05/18 08:59 07/09/18 08:23 Finasteride (Proscar) 5 mg DAILY ORAL 07/06/18 09:00 08/05/18 08:59 07/09/18 08:24 Lansoprazole (Prevacid) 30 mg DAILY GT 07/06/18 09:00 08/05/18 08:59 07/09/18 08:24 Metoprolol Tartrate (Lopressor) 100 mg EVERY 8 HOURS GT 07/06/18 06:30 08/05/18 05:59 07/09/18 06:24 Ondansetron HCl (Zofran) 4 mg Q6H PRN GT Nausea & Vomiting 07/06/18 12:15 08/05/18 00:14 Piperacillin Sod/ Tazobactam Sod 3.375 gm/Sodium Chloride 110 ml @ 27.5 mls/hr Q8H IVPB 07/06/18 09:00 07/13/18 00:59 07/09/18 08:39 Polyethylene Glycol (Miralax) 17 gm DAILY GT 07/06/18 09:00 08/05/18 08:59 07/09/18 08:24 Sennosides (Senokot) 8.6 mg BEDTIME GT 07/06/18 21:00 08/05/18 20:59 07/08/18 21:00 Sodium Chloride 1,000 ml @ 75 mls/hr [id number] IV 07/06/18 14:00 08/05/18 13:59 07/09/18 08:25 Tamsulosin HCl (Flomax) 0.4 mg BEDTIME ORAL 07/06/18 21:00 08/05/18 20:59 07/08/18 21:00 Vancomycin HCl (Vanco rx to dose) 1 ea DAILY PRN MISC Per rx protocol 07/06/18 09:00 08/05/18 00:14 Vancomycin HCl 1 gm/Dextrose 275 ml @ 183.708 mls/hr Q12H IVPB 07/06/18 18:00 07/11/18 05:59 07/09/18 06:24 Height (Feet): 5 Height (Inches): 8.00 Weight (Pounds): 180 Objective quiles indwelling urine is grossly yellow scrotal edema stable renal u/s (07/06) noted Freedom Paris MD Jul 09, 2018 10:23
--- NOTE | 2018-07-09 12:44 | NUR ---
NURSE NOTES: left a message to dr sosa regarding proscar and flomax alternate meds. per pharmacy these meds could not be crushed and cannot be given through GT.
--- NOTE | 2018-07-09 17:21 | NUR ---
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 98.7 HR 88 RR 20 B/P 156/107 2L NC O2 SAT @ 98% IS: VANCO IV IVF NS@ 75ML/HR ZOSYN IV TELE STATUS
--- NOTE | 2018-07-09 19:15 | NUR ---
HAND-OFF: Report given to kristi chacon.
--- NOTE | 2018-07-09 19:51 | NUR ---
NURSE NOTES: Report received from Fatou CHOPRA. Patient is observed in bed, awake, alert, able to open eyes spontaneously and follow simple commands, however, unable to make needs known. IV site is asymptomatic, patent, and intact. IVF and GTF are running at a prescribed rate. No residual noted, pt tolerating feeding well. Bed is in lowest position with side rails up x2 and brakes are engaged. Bed alarm is on. HOB elevated. Will continue to monitor.
[2018-07-09] MEDS: Sennosides 8.6mg tab GT SCH (20:46)
[2018-07-09] MEDS: Terazosin 1mg cap ORAL SCH (20:46)
--- NOTE | 2018-07-10 | NUR ---
NURSE NOTES: Patient is asleep but arousable by voice. No s/s of distress at this time. VSS. SR on the monitor. Will continue to monitor.
[2018-07-10] MEDS: Piperacillin/Tazobactam 3.375 GM in NS 110 ML IVPB SCH ×3 (01:06→16:42)
[2018-07-10] MEDS: Albuterol ud Inhalation HHN SCH ×6 (03:05→23:17)
--- NOTE | 2018-07-10 03:30 | NUR ---
NURSE NOTES: Patient's stomach is distended and tender to touch. Patient c/o abdominal pain, held GTF at this time. Will resume at a later time.
[2018-07-10 04:00] VITALS: BP 171/110
[2018-07-10] MEDS: cloNIDine 0.2mg Tab GT PRN ×2 (04:22→16:42)
[2018-07-10] MEDS: Vancomycin 1 GM in D5W 275 ML IVPB SCH ×2 (05:42→18:00)
--- NOTE | 2018-07-10 07:25 | NUR ---
HAND-OFF: Report given to Natasha CHOPRA. Patient is observed in bed, awake, and alert. No s/s of acute distess. GTF resumed. Lynn catheter in in place and intact. Endorsed plan of care.
--- NOTE | 2018-07-10 07:25 | NUR ---
NURSE NOTES: I received the patient awake and resting in bed. Patient alert and oriented x3. Patient does not display any signs of distress or SOB. Bed in the lowest position and call light within reach. I will continue to monitor the patient and implement care.
[2018-07-10 08:00] VITALS: BP 137/80
[2018-07-10] MEDS: Miralax 17gm pkt GT SCH (09:16)
[2018-07-10] MEDS: Tums 500mg GT SCH (09:16)
[2018-07-10] MEDS: Docusate 100mg/10ml Liq GT SCH (09:16)
--- NOTE | 2018-07-10 09:17 | Pulmonology Progress Note ---
Assessment/Plan Assessment/Plan uti sepsis ? 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 ST asymptomatic resolved IVF home meds via GT TF wound care IV abx FU cultures [facility] urology notes reviewed DC planning Subjective Interval Events: Looking better Constitutional: Reports: no symptoms HEENT: Repors: no symptoms Respiratory: Reports: no symptoms Cardiovascular: Reports: no symptoms Gastrointestinal/Abdominal: Reports: no symptoms Genitourinary: Reports: no symptoms Allergies: Coded Allergies: NO KNOWN ALLERGIES (Unverified Allergy, Unknown, 03/02/15) Objective Last 24 Hour Vital Signs Date Time Temp Pulse Resp B/P (MAP) Pulse Ox O2 Delivery O2 Flow Rate FiO2 07/10/18 07:33 80 18 99 Nasal Cannula 2.0 28 07/10/18 07:28 Nasal Cannula 2.0 28 07/10/18 07:21 73 20 99 Nasal Cannula 2.0 28 07/10/18 07:20 99 Nasal Cannula 2.0 28 07/10/18 05:48 95 155/110 07/10/18 04:22 171/110 07/10/18 04:00 97.2 99 22 171/110 (130) 100 07/10/18 03:15 87 07/10/18 03:15 81 16 99 Nasal Cannula 2.0 28 07/10/18 03:05 79 16 99 Nasal Cannula 2.0 28 07/09/18 23:47 97.3 83 22 164/112 (129) 99 07/09/18 23:08 86 16 99 Nasal Cannula 2.0 28 07/09/18 22:58 81 14 99 Nasal Cannula 2.0 28 07/09/18 21:13 85 166/112 07/09/18 21:00 Nasal Cannula 2.0 07/09/18 20:00 75 07/09/18 20:00 98.0 87 20 166/112 (130) 99 07/09/18 19:44 83 18 99 Nasal Cannula 2.0 28 07/09/18 19:34 80 16 99 Nasal Cannula 2.0 28 07/09/18 19:34 Nasal Cannula 2.0 28 07/09/18 19:34 99 Nasal Cannula 2.0 28 07/09/18 16:00 98.7 88 20 156/107 (123) 98 07/09/18 16:00 77 07/09/18 15:58 79 18 99 Nasal Cannula 2.0 28 07/09/18 15:46 89 18 99 Nasal Cannula 2.0 28 07/09/18 14:09 85 160/105 07/09/18 12:00 81 07/09/18 12:00 98.7 85 20 160/105 (123) 99 07/09/18 11:45 84 18 99 Nasal Cannula 2.0 28 07/09/18 11:40 82 18 97 Nasal Cannula 2.0 28 Intake and Output 07/09/18 07/10/18 19:00 07:00 Intake Total 2068.124 ml 661.208 ml Output Total 1550 ml 1500 ml Balance 518.124 ml -838.792 ml Intake Free Water 90 ml IV Total 1458.124 ml 661.208 ml Tube Feeding 520 ml Output Urine Total 1550 ml 1500 ml General Appearance: no acute distress HEENT: normocephalic Respiratory/Chest: chest wall non-tender, lungs clear Cardiovascular: normal peripheral pulses, normal rate Abdomen: normal bowel sounds, soft, non tender Current Medications Medications (Trade) Dose Ordered Sig/Kehinde Route PRN Reason Start Time Stop Time Status Last Admin Dose Admin Acetaminophen (Tylenol) 650 mg Q6H PRN ORAL Mild Pain/Temp > 100.5 07/06/18 10:45 08/05/18 04:44 07/08/18 17:18 Acetaminophen/ Hydrocodone Bitart ([place] 5/325) 1 tab Q4H PRN GT Severe Pain (Pain Scale 7-10) 07/06/18 08:15 07/13/18 00:14 Albuterol Sulfate (Proventil) 2.5 mg Q4HRT HHN 07/07/18 19:00 07/11/18 12:59 07/10/18 07:24 Calcium Carbonate (Tums) 500 mg DAILY GT 07/09/18 09:00 08/05/18 08:59 07/09/18 08:24 Clonidine HCl (Catapres tab) 0.2 mg Q4H PRN GT For SBP >170 07/06/18 08:15 08/05/18 00:14 07/10/18 04:22 Docusate Sodium (Colace) 100 mg DAILY GT 07/06/18 09:00 08/05/18 08:59 07/09/18 08:23 Lansoprazole (Prevacid) 30 mg DAILY GT 07/06/18 09:00 08/05/18 08:59 07/09/18 08:24 Metoprolol Tartrate (Lopressor) 100 mg EVERY 8 HOURS GT 07/06/18 06:30 08/05/18 05:59 07/10/18 05:48 Ondansetron HCl (Zofran) 4 mg Q6H PRN GT Nausea & Vomiting 07/06/18 12:15 08/05/18 00:14 Piperacillin Sod/ Tazobactam Sod 3.375 gm/Sodium Chloride 110 ml @ 27.5 mls/hr Q8H IVPB 07/06/18 09:00 07/13/18 00:59 07/10/18 01:06 Polyethylene Glycol (Miralax) 17 gm DAILY GT 07/06/18 09:00 08/05/18 08:59 07/09/18 08:24 Sennosides (Senokot) 8.6 mg BEDTIME GT 07/06/18 21:00 08/05/18 20:59 07/09/18 20:46 Sodium Chloride 1,000 ml @ 75 mls/hr [id number] IV 07/06/18 14:00 08/05/18 13:59 07/09/18 21:14 Terazosin HCl (Hytrin) 2 mg BEDTIME ORAL 07/09/18 21:00 08/08/18 20:59 07/09/18 20:46 Vancomycin HCl (Vanco rx to dose) 1 ea DAILY PRN MISC Per rx protocol 07/06/18 09:00 08/05/18 00:14 Vancomycin HCl 1 gm/Dextrose 275 ml @ 183.708 mls/hr Q12H IVPB 07/06/18 18:00 07/11/18 05:59 07/10/18 05:42 Toño Jane MD Jul 10, 2018 09:17
--- NOTE | 2018-07-10 11:08 | Urology Progress Note ---
Assessment/Plan Assessment/Plan hx of right ureteral calc hydro hx BPH hx urinary retention scrotal edema pyuria/UTI hematuria proteinuria possible neurogenic bladder monitor clinically abx as ordered f/u on blood cx quiles indwelling flomax and proscar voiding trial at some point may need nephrostomy, if becomes toxic d/w Dr. Jnae Subjective Allergies: Coded Allergies: NO KNOWN ALLERGIES (Unverified Allergy, Unknown, 03/02/15) Subjective all noted, looks comfortable Objective Last 24 Hour Vital Signs Date Time Temp Pulse Resp B/P (MAP) Pulse Ox O2 Delivery O2 Flow Rate FiO2 07/10/18 08:00 97.7 98 20 137/80 (99) 07/10/18 07:33 80 18 99 Nasal Cannula 2.0 28 07/10/18 07:28 Nasal Cannula 2.0 28 07/10/18 07:21 73 20 99 Nasal Cannula 2.0 28 07/10/18 07:20 99 Nasal Cannula 2.0 28 07/10/18 05:48 95 155/110 07/10/18 04:22 171/110 07/10/18 04:00 97.2 99 22 171/110 (130) 100 07/10/18 03:15 87 07/10/18 03:15 81 16 99 Nasal Cannula 2.0 28 07/10/18 03:05 79 16 99 Nasal Cannula 2.0 28 07/09/18 23:47 97.3 83 22 164/112 (129) 99 07/09/18 23:08 86 16 99 Nasal Cannula 2.0 28 07/09/18 22:58 81 14 99 Nasal Cannula 2.0 28 07/09/18 21:13 85 166/112 07/09/18 21:00 Nasal Cannula 2.0 07/09/18 20:00 75 07/09/18 20:00 98.0 87 20 166/112 (130) 99 07/09/18 19:44 83 18 99 Nasal Cannula 2.0 28 07/09/18 19:34 80 16 99 Nasal Cannula 2.0 28 07/09/18 19:34 Nasal Cannula 2.0 28 07/09/18 19:34 99 Nasal Cannula 2.0 28 07/09/18 16:00 98.7 88 20 156/107 (123) 98 07/09/18 16:00 77 07/09/18 15:58 79 18 99 Nasal Cannula 2.0 28 07/09/18 15:46 89 18 99 Nasal Cannula 2.0 28 07/09/18 14:09 85 160/105 07/09/18 12:00 81 07/09/18 12:00 98.7 85 20 160/105 (123) 99 07/09/18 11:45 84 18 99 Nasal Cannula 2.0 28 07/09/18 11:40 82 18 97 Nasal Cannula 2.0 28 Intake and Output 07/09/18 07/10/18 19:00 07:00 Intake Total 2068.124 ml 661.208 ml Output Total 1550 ml 1500 ml Balance 518.124 ml -838.792 ml Intake Free Water 90 ml IV Total 1458.124 ml 661.208 ml Tube Feeding 520 ml Output Urine Total 1550 ml 1500 ml Microbiology Date/Time Source Procedure Growth Status 07/05/18 16:43 Blood Blood Culture - Preliminary NO GROWTH AFTER 4 DAYS Resulted 07/05/18 16:40 Nasal Nares MRSA Culture - Final Staphylococcus Aureus - Mrsa Complete 07/06/18 07:00 Indwelling Cath Urine Culture - Final Pseudomonas Aeruginosa Complete 07/05/18 16:40 Rectum VRE Culture - Final NO VANCOMYCIN RESISTANT ENTEROCOCCUS ... Complete 07/05/18 16:40 Rectum - Final NO CARBAPENEM-RESISTANT ENTEROBACTERI... Complete Current Medications Medications (Trade) Dose Ordered Sig/Kehinde Route PRN Reason Start Time Stop Time Status Last Admin Dose Admin Acetaminophen (Tylenol) 650 mg Q6H PRN ORAL Mild Pain/Temp > 100.5 07/06/18 10:45 08/05/18 04:44 07/08/18 17:18 Acetaminophen/ Hydrocodone Bitart ([place] 5/325) 1 tab Q4H PRN GT Severe Pain (Pain Scale 7-10) 07/06/18 08:15 07/13/18 00:14 Albuterol Sulfate (Proventil) 2.5 mg Q4HRT HHN 07/07/18 19:00 07/11/18 12:59 07/10/18 07:24 Calcium Carbonate (Tums) 500 mg DAILY GT 07/09/18 09:00 08/05/18 08:59 07/10/18 09:16 Clonidine HCl (Catapres tab) 0.2 mg Q4H PRN GT For SBP >170 07/06/18 08:15 08/05/18 00:14 07/10/18 04:22 Docusate Sodium (Colace) 100 mg DAILY GT 07/06/18 09:00 08/05/18 08:59 07/10/18 09:16 Lansoprazole (Prevacid) 30 mg DAILY GT 07/06/18 09:00 08/05/18 08:59 07/10/18 09:16 Metoprolol Tartrate (Lopressor) 100 mg EVERY 8 HOURS GT 07/06/18 06:30 08/05/18 05:59 07/10/18 05:48 Ondansetron HCl (Zofran) 4 mg Q6H PRN GT Nausea & Vomiting 07/06/18 12:15 08/05/18 00:14 Piperacillin Sod/ Tazobactam Sod 3.375 gm/Sodium Chloride 110 ml @ 27.5 mls/hr Q8H IVPB 07/06/18 09:00 07/13/18 00:59 07/10/18 09:16 Polyethylene Glycol (Miralax) 17 gm DAILY GT 07/06/18 09:00 08/05/18 08:59 07/10/18 09:16 Sennosides (Senokot) 8.6 mg BEDTIME GT 07/06/18 21:00 08/05/18 20:59 07/09/18 20:46 Sodium Chloride 1,000 ml @ 75 mls/hr [id number] IV 07/06/18 14:00 08/05/18 13:59 07/09/18 21:14 Terazosin HCl (Hytrin) 2 mg BEDTIME ORAL 07/09/18 21:00 08/08/18 20:59 07/09/18 20:46 Vancomycin HCl (Vanco rx to dose) 1 ea DAILY PRN MISC Per rx protocol 07/06/18 09:00 07/11/18 05:59 Vancomycin HCl 1 gm/Dextrose 275 ml @ 183.708 mls/hr Q12H IVPB 07/06/18 18:00 07/11/18 05:59 07/10/18 05:42 Height (Feet): 5 Height (Inches): 8.00 Weight (Pounds): 158 Objective quiles indwelling urine is grossly yellow scrotal edema stable renal u/s (07/06) noted Freedom Paris MD Jul 10, 2018 11:08
[2018-07-10 12:00] VITALS: BP 162/108
--- NOTE | 2018-07-10 12:37 | NUR ---
NURSE NOTES: Patient resting in bed. Patient nonverbal but able to non-verbally respond to questions. Patient's g-tube feeding infusing well and no residual noted. Bed in the lowest position and call light within reach.
--- NOTE | 2018-07-10 14:51 | NUR ---
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 97.8 HR 95 RR 12 B/P 162/98 2L NC O2 SAT @ 98% IS: VANCO IV IVF NS @ 75ML/HR ZOSYN IV ALB HHN MED/SURG STATUS
[2018-07-10 16:00] VITALS: BP 171/102
[2018-07-10 18:47] VITALS: BP 156/101
--- NOTE | 2018-07-10 19:38 | NUR ---
HAND-OFF: Report given to NAV Sheldon.
--- NOTE | 2018-07-10 19:40 | NUR ---
NURSE NOTES: Got report from Natasha CHOPRA. Pt in stable condition. No s/s of distress or discomfort. Pt resting in bed comfortably. Bed in low and locked position, call light within reach, bedside table within reach. Continue to monitor.
[2018-07-10 20:00] VITALS: BP 157/97
[2018-07-10] MEDS: Terazosin 1mg cap ORAL SCH (21:00)
[2018-07-10] MEDS: Sennosides 8.6mg tab GT SCH (21:00)
[2018-07-11] VITALS: BP 146/83
[2018-07-11] MEDS: Piperacillin/Tazobactam 3.375 GM in NS 110 ML IVPB SCH ×2 (01:03→09:14)
[2018-07-11] MEDS: Albuterol ud Inhalation HHN SCH ×3 (02:47→11:22)
[2018-07-11 04:21] VITALS: BP 150/60
[2018-07-11 04:27] VITALS: BP 160/90
--- NOTE | 2018-07-11 07:19 | NUR ---
HAND-OFF: Report given to vania RN. endorsed plan of care.
--- NOTE | 2018-07-11 07:20 | NUR ---
NURSE NOTES: Received bedside report from Anthony CHOPRA. Pt. in bed, asleep but arousable. No sign of distress. No grimacing noted. On GTF Glucerna 1.2 at 65cc/hr. Tolerating well. HOB elevated at all times. F/C in placed patent/intact draining pale yellow colored urine. IV at right hand #[id number]. in placed patent/intact running NS at 75cc/hr. Bed in low position, locked. Call light within reach. Will cont. to monitor.
[2018-07-11 07:38] LABS: ANION GAP 9 mmol/L (5-15); BLOOD UREA NITROGEN 9 mg/dL (7-18); CALCIUM 8.6 MG/DL (8.5-10.1); CARBON DIOXIDE 25 MMOL/L (21-32); CHLORIDE 105 MMOL/L (98-107); CREATININE 0.9 MG/DL (0.55-1.30); POTASSIUM 3.7 MMOL/L (3.5-5.1); SODIUM 139 MMOL/L (136-145)
[2018-07-11 07:42] LABS: BASOPHILS % (AUTO) 1.4 % (0.0-2.0); EOSINOPHILS % (AUTO) 4.9 % (0.0-3.0); HEMATOCRIT 39.7 % (42.0-52.0); HEMOGLOBIN 13.3 G/DL (14.2-18.0); LYMPHOCYTES % (AUTO) 15.8 % (20.0-45.0); MEAN CORPUSCULAR VOLUME 89 FL (80-99); MONOCYTES % (AUTO) 13.5 % (1.0-10.0); NEUTROPHILS % (AUTO) 64.4 % (45.0-75.0); PLATELET COUNT 382 K/UL (150-450); RED BLOOD COUNT 4.44 M/UL (4.70-6.10); RED CELL DISTRIBUTION WIDTH 13.7 % (11.6-14.8); WHITE BLOOD COUNT 5.6 K/UL (4.8-10.8)
[2018-07-11 08:00] VITALS: BP 167/108
--- NOTE | 2018-07-11 09:02 | Urology Progress Note ---
Assessment/Plan Assessment/Plan hx of right ureteral calc hydro hx BPH hx urinary retention scrotal edema pyuria/UTI hematuria proteinuria possible neurogenic bladder monitor clinically abx as ordered quiles indwelling flomax and proscar voiding trial at some point may need nephrostomy, if becomes toxic d/w Dr. Jane Subjective Allergies: Coded Allergies: NO KNOWN ALLERGIES (Unverified Allergy, Unknown, 03/02/15) Subjective all noted, looks comfortable Objective Last 24 Hour Vital Signs Date Time Temp Pulse Resp B/P (MAP) Pulse Ox O2 Delivery O2 Flow Rate FiO2 07/11/18 08:00 97.3 82 20 167/108 (127) 99 07/11/18 07:43 73 18 100 Nasal Cannula 2.0 28 07/11/18 07:36 Nasal Cannula 2.0 28 07/11/18 07:36 99 Nasal Cannula 2.0 28 07/11/18 07:35 78 18 99 Nasal Cannula 2.0 28 07/11/18 05:40 84 160/90 07/11/18 04:29 84 07/11/18 04:27 160/90 (113) 07/11/18 04:21 97.0 71 20 150/60 (90) 96 07/11/18 02:57 74 18 99 Nasal Cannula 2.0 28 07/11/18 02:47 77 18 99 Nasal Cannula 2.0 28 07/11/18 00:00 98.0 72 20 146/83 (104) 96 07/11/18 00:00 77 07/10/18 23:27 78 18 100 Nasal Cannula 2.0 28 07/10/18 23:17 75 18 98 Nasal Cannula 2.0 28 07/10/18 21:33 87 151/97 07/10/18 21:00 Nasal Cannula 2.0 07/10/18 20:16 82 18 99 Nasal Cannula 2.0 28 07/10/18 20:05 98 Nasal Cannula 2.0 28 07/10/18 20:05 Nasal Cannula 2.0 28 07/10/18 20:04 89 20 98 Nasal Cannula 2.0 28 07/10/18 20:00 79 07/10/18 20:00 98.4 87 20 157/97 (117) 99 07/10/18 18:47 156/101 (119) 07/10/18 16:42 171/102 07/10/18 16:00 97.9 95 20 171/102 (125) 100 07/10/18 15:55 76 18 99 Nasal Cannula 2.0 28 07/10/18 15:40 76 20 99 Nasal Cannula 2.0 28 07/10/18 15:09 88 07/10/18 14:09 95 162/108 07/10/18 12:00 97.8 95 18 162/108 (126) 98 07/10/18 11:53 83 07/10/18 11:53 83 07/10/18 11:49 77 18 99 Nasal Cannula 2.0 28 07/10/18 11:40 70 20 99 Nasal Cannula 2.0 28 Intake and Output 07/10/18 07/11/18 18:59 06:59 Intake Total 1170.0 ml Output Total 1700 ml Balance -530.0 ml Intake Free Water 140 ml IV Total 315.0 ml Tube Feeding 715 ml Output Urine Total 1700 ml # Bowel Movements 1 Microbiology Date/Time Source Procedure Growth Status 07/05/18 16:43 Blood Blood Culture - Final NO GROWTH AFTER 5 DAYS Complete 07/05/18 16:40 Nasal Nares MRSA Culture - Final Staphylococcus Aureus - Mrsa Complete 07/06/18 07:00 Indwelling Cath Urine Culture - Final Pseudomonas Aeruginosa Complete 07/05/18 16:40 Rectum VRE Culture - Final NO VANCOMYCIN RESISTANT ENTEROCOCCUS ... Complete 07/05/18 16:40 Rectum - Final NO CARBAPENEM-RESISTANT ENTEROBACTERI... Complete Current Medications Medications (Trade) Dose Ordered Sig/Kehinde Route PRN Reason Start Time Stop Time Status Last Admin Dose Admin Acetaminophen (Tylenol) 650 mg Q6H PRN ORAL Mild Pain/Temp > 100.5 07/06/18 10:45 08/05/18 04:44 07/08/18 17:18 Acetaminophen/ Hydrocodone Bitart ([place] 5/325) 1 tab Q4H PRN GT Severe Pain (Pain Scale 7-10) 07/06/18 08:15 07/13/18 00:14 Albuterol Sulfate (Proventil) 2.5 mg Q4HRT HHN 07/07/18 19:00 07/11/18 12:59 07/11/18 07:33 Calcium Carbonate (Tums) 500 mg DAILY GT 07/09/18 09:00 08/05/18 08:59 07/10/18 09:16 Clonidine HCl (Catapres tab) 0.2 mg Q4H PRN GT For SBP >170 07/06/18 08:15 08/05/18 00:14 07/10/18 16:42 Docusate Sodium (Colace) 100 mg DAILY GT 07/06/18 09:00 08/05/18 08:59 07/10/18 09:16 Lansoprazole (Prevacid) 30 mg DAILY GT 07/06/18 09:00 08/05/18 08:59 07/10/18 09:16 Metoprolol Tartrate (Lopressor) 100 mg EVERY 8 HOURS GT 07/06/18 06:30 08/05/18 05:59 07/11/18 05:40 Ondansetron HCl (Zofran) 4 mg Q6H PRN GT Nausea & Vomiting 07/06/18 12:15 08/05/18 00:14 Piperacillin Sod/ Tazobactam Sod 3.375 gm/Sodium Chloride 110 ml @ 27.5 mls/hr Q8H IVPB 07/06/18 09:00 07/13/18 00:59 07/11/18 01:03 Polyethylene Glycol (Miralax) 17 gm DAILY GT 07/06/18 09:00 08/05/18 08:59 07/10/18 09:16 Sennosides (Senokot) 8.6 mg BEDTIME GT 07/06/18 21:00 08/05/18 20:59 07/10/18 21:00 Sodium Chloride 1,000 ml @ 75 mls/hr [id number] IV 07/06/18 14:00 08/05/18 13:59 07/11/18 01:03 Terazosin HCl (Hytrin) 2 mg BEDTIME ORAL 07/09/18 21:00 08/08/18 20:59 07/10/18 21:00 Laboratory Tests 07/11/18 05:54: White Blood Count 5.6, Red Blood Count 4.44L, Hemoglobin 13.3L, Hematocrit 39.7L , Mean Corpuscular Volume 89, Mean Corpuscular Hemoglobin 29.9, Mean Corpuscular Hemoglobin Concent 33.5, Red Cell Distribution Width 13.7, Platelet Count 382, Mean Platelet Volume 5.8L, Neutrophils (%) (Auto) 64.4, Lymphocytes ( %) (Auto) 15.8L, Monocytes (%) (Auto) 13.5H, Eosinophils (%) (Auto) 4.9H, Basophils (%) (Auto) 1.4, Sodium Level 139, Potassium Level 3.7, Chloride Level 105, Carbon Dioxide Level 25, Anion Gap 9, Blood Urea Nitrogen 9, Creatinine 0.9 , Estimat Glomerular Filtration Rate > 60, Glucose Level 97, Calcium Level 8.6 Height (Feet): 5 Height (Inches): 8.00 Weight (Pounds): 158 Objective quiles indwelling urine is grossly yellow scrotal edema stable renal u/s (07/06) noted Freedom Paris MD Jul 11, 2018 09:02
[2018-07-11] MEDS: Miralax 17gm pkt GT SCH (09:13)
[2018-07-11] MEDS: Docusate 100mg/10ml Liq GT SCH (09:13)
[2018-07-11] MEDS: Tums 500mg GT SCH (09:13)
--- NOTE | 2018-07-11 10:14 | Pulmonology Progress Note ---
Assessment/Plan Assessment/Plan uti sepsis ? 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 ST asymptomatic resolved IVF.. will dc home meds via GT TF wound care IV abx has pseudomonas UTI; ogden sensitive nebs urology notes reviewed; no need for nephrostomy at this time DC planning Subjective Interval Events: No new events Constitutional: Reports: no symptoms HEENT: Repors: no symptoms Respiratory: Reports: no symptoms Cardiovascular: Reports: no symptoms Gastrointestinal/Abdominal: Reports: no symptoms Genitourinary: Reports: no symptoms Neurologic: Reports: no symptoms Allergies: Coded Allergies: NO KNOWN ALLERGIES (Unverified Allergy, Unknown, 03/02/15) Objective Last 24 Hour Vital Signs Date Time Temp Pulse Resp B/P (MAP) Pulse Ox O2 Delivery O2 Flow Rate FiO2 07/11/18 09:00 Nasal Cannula 2.0 07/11/18 08:00 97.3 82 20 167/108 (127) 99 07/11/18 07:43 73 18 100 Nasal Cannula 2.0 28 07/11/18 07:36 Nasal Cannula 2.0 28 07/11/18 07:36 99 Nasal Cannula 2.0 28 07/11/18 07:35 78 18 99 Nasal Cannula 2.0 28 07/11/18 05:40 84 160/90 07/11/18 04:29 84 07/11/18 04:27 160/90 (113) 07/11/18 04:21 97.0 71 20 150/60 (90) 96 07/11/18 02:57 74 18 99 Nasal Cannula 2.0 28 07/11/18 02:47 77 18 99 Nasal Cannula 2.0 28 07/11/18 00:00 98.0 72 20 146/83 (104) 96 07/11/18 00:00 77 07/10/18 23:27 78 18 100 Nasal Cannula 2.0 28 07/10/18 23:17 75 18 98 Nasal Cannula 2.0 28 07/10/18 21:33 87 151/97 07/10/18 21:00 Nasal Cannula 2.0 07/10/18 20:16 82 18 99 Nasal Cannula 2.0 28 07/10/18 20:05 98 Nasal Cannula 2.0 28 07/10/18 20:05 Nasal Cannula 2.0 28 07/10/18 20:04 89 20 98 Nasal Cannula 2.0 28 07/10/18 20:00 79 07/10/18 20:00 98.4 87 20 157/97 (117) 99 07/10/18 18:47 156/101 (119) 07/10/18 16:42 171/102 07/10/18 16:00 97.9 95 20 171/102 (125) 100 07/10/18 15:55 76 18 99 Nasal Cannula 2.0 28 07/10/18 15:40 76 20 99 Nasal Cannula 2.0 28 07/10/18 15:09 88 07/10/18 14:09 95 162/108 07/10/18 12:00 97.8 95 18 162/108 (126) 98 07/10/18 11:53 83 07/10/18 11:53 83 07/10/18 11:49 77 18 99 Nasal Cannula 2.0 28 07/10/18 11:40 70 20 99 Nasal Cannula 2.0 28 Intake and Output 07/10/18 07/11/18 18:59 06:59 Intake Total 1170.0 ml Output Total 1700 ml Balance -530.0 ml Intake Free Water 140 ml IV Total 315.0 ml Tube Feeding 715 ml Output Urine Total 1700 ml # Bowel Movements 1 General Appearance: no acute distress HEENT: normocephalic Respiratory/Chest: chest wall non-tender, lungs clear Cardiovascular: normal peripheral pulses, normal rate Abdomen: normal bowel sounds Laboratory Tests 07/11/18 05:54: White Blood Count 5.6, Red Blood Count 4.44L, Hemoglobin 13.3L, Hematocrit 39.7L , Mean Corpuscular Volume 89, Mean Corpuscular Hemoglobin 29.9, Mean Corpuscular Hemoglobin Concent 33.5, Red Cell Distribution Width 13.7, Platelet Count 382, Mean Platelet Volume 5.8L, Neutrophils (%) (Auto) 64.4, Lymphocytes ( %) (Auto) 15.8L, Monocytes (%) (Auto) 13.5H, Eosinophils (%) (Auto) 4.9H, Basophils (%) (Auto) 1.4, Sodium Level 139, Potassium Level 3.7, Chloride Level 105, Carbon Dioxide Level 25, Anion Gap 9, Blood Urea Nitrogen 9, Creatinine 0.9 , Estimat Glomerular Filtration Rate > 60, Glucose Level 97, Calcium Level 8.6 Current Medications Medications (Trade) Dose Ordered Sig/Kehinde Route PRN Reason Start Time Stop Time Status Last Admin Dose Admin Acetaminophen (Tylenol) 650 mg Q6H PRN ORAL Mild Pain/Temp > 100.5 07/06/18 10:45 08/05/18 04:44 07/08/18 17:18 Acetaminophen/ Hydrocodone Bitart ([place] 5/325) 1 tab Q4H PRN GT Severe Pain (Pain Scale 7-10) 07/06/18 08:15 07/13/18 00:14 Albuterol Sulfate (Proventil) 2.5 mg Q4HRT HHN 07/07/18 19:00 07/11/18 12:59 07/11/18 07:33 Calcium Carbonate (Tums) 500 mg DAILY GT 07/09/18 09:00 08/05/18 08:59 07/11/18 09:13 Clonidine HCl (Catapres tab) 0.2 mg Q4H PRN GT For SBP >170 07/06/18 08:15 08/05/18 00:14 07/10/18 16:42 Docusate Sodium (Colace) 100 mg DAILY GT 07/06/18 09:00 08/05/18 08:59 07/11/18 09:13 Lansoprazole (Prevacid) 30 mg DAILY GT 07/06/18 09:00 08/05/18 08:59 07/11/18 09:13 Metoprolol Tartrate (Lopressor) 100 mg EVERY 8 HOURS GT 07/06/18 06:30 08/05/18 05:59 07/11/18 05:40 Ondansetron HCl (Zofran) 4 mg Q6H PRN GT Nausea & Vomiting 07/06/18 12:15 08/05/18 00:14 Piperacillin Sod/ Tazobactam Sod 3.375 gm/Sodium Chloride 110 ml @ 27.5 mls/hr Q8H IVPB 07/06/18 09:00 07/13/18 00:59 07/11/18 09:14 Polyethylene Glycol (Miralax) 17 gm DAILY GT 07/06/18 09:00 08/05/18 08:59 07/11/18 09:13 Sennosides (Senokot) 8.6 mg BEDTIME GT 07/06/18 21:00 2/18/19 20:59 07/10/18 21:00 Sodium Chloride 1,000 ml @ 75 mls/hr [id number] IV 07/06/18 14:00 08/05/18 13:59 07/11/18 01:03 Terazosin HCl (Hytrin) 2 mg BEDTIME ORAL 07/09/18 21:00 08/08/18 20:59 07/10/18 21:00 Toño Jane MD Jul 11, 2018 10:14
[2018-07-11] MEDS ORDERED: LEVAQUIN500 MG ORAL (10:15)
--- NOTE | 2018-07-11 11:18 | NUR ---
*-* DISCHARGE PLANNING *-* PATIENT HAS BEEN REFERRED BACK TO: THE [facility] P:[phone] F: [phone]
--- NOTE | 2018-07-11 11:36 | NUR ---
*-* DISCHARGE PLANNED *-* PATIENT IS DISCHARGE TO: THE [facility] ROOM# 29-C FDC T:[phone] FOR NURSE TO NURSE REPORT [facility] HAS BEEN ARRANGED FOR ORNAMENTER 1230 S/[address] FELIX X88
--- NOTE | 2018-07-11 11:40 | NUR ---
NURSE NOTES: Gave report to [facility] [place] and spoke to Lina CHOPRA.
--- NOTE | 2018-07-11 11:49 | NUR ---
RD ASSESSMENT & RECOMMENDATIONS SEE CARE ACTIVITY FOR COMPLETE ASSESSMENT DAILY ESTIMATED NEEDS: Needs based on Sepsis 60kg 25-35 kcals/kg 4739-9074 total kcals 1.2-2 g protein/kg 72-120 g total protein 25-30 mL/kg 3959-9709 total fluid mLs NUTRITION DIAGNOSIS: 1) Swallowing difficulty r/t dysphagia, h/o CVA as evidenced by pt is PEG dep for all nutritional needs. 2) Altered nutrition related lab values r/t hyperglycemia as evidenced by elev BG (160-174, now improved) CURRENT TF:Jevity 1.2 @65ml x20 hrs ENTERAL NUTRITION RECOMMENDATIONS: Glucerna 1.2 @ 65ml/hr x 20hrs + Prosource qdaily to provide 1300ml, 1560kcal, 78g + 11g prot, 1047ml free H2O - REC TF CHANGE TO-> Glucerna 1.2 for glycemic control. - Start at 25ml/hr for 4-6 hours, advance by 10ml/hr every 4-6 hours as tolerated to goal rate of 65ml/[id number] -HOB>30degrees, flush per MD ADDITIONAL RECOMMENDATIONS: 1) RE-calibrate bed scale-> per SNF wt of 132# 2) Add PROSOURCE 1 pack daily to better meet est prot needs 3) Check A1C (adm w/ elev BG) 4) Consult RD for any skin breakdown 5) Monitor lytes daily on TF/ replete as needed
[2018-07-11 12:00] VITALS: BP 158/108
--- NOTE | 2018-07-11 12:05 | NUR ---
NURSE NOTES: Informed Winter Martel (daughter) of the pt. that her father will be d/c back to SNF today.
--- NOTE | 2018-07-11 13:55 | NUR ---
Discharge: Patient is being discharged to SNF [facility] on from medical care. Awake, alert and oriented x2-3. All medical devices such as IV, monitoring and evaluation advisor and ID band were removed. Discharged with f/c. Patient wheeled out via life line ambulance with all personal belongings.
--- NOTE | 2018-07-12 14:36 | Discharge Summary ---
Discharge Summary Discharge Summary _ DATE OF ADMISSION: 07/05/2018 DATE OF DISCHARGE: 07/11/2018 DISCHARGED BY: Dr. Phong Jane CONSULTANTS: Dr. Freedom Paris BRIEF HOSPITAL COURSE: Patient is a 63-year-old male, who was transferred from [facility] by paramedics because of congestion and pneumonia seen on x-ray. Patient was aphasic and unable to provide any additional history. He has medical history significant for cerebral hemorrhage with right hemiparesis and aphasia, dysphagia, coronary artery disease, hypertension, COPD, hyponatremia fecal impaction. He was hospitalized a month ago with findings of pneumonia. Patient is DNR. On evaluation at ED, blood work showed leukocytosis, WBC was 13. Hemoglobin and hematocrit were stable. He was hyponatremic, sodium level of 125, potassium was elevated at 5.3, chloride 94. BUN was 15, creatinine 0.7. Lactic acid 1.2. Urinalysis showed 20-30 WBC, 30-40 RBC, 3+ leukocyte esterase , positive nitrite, 2+ protein. Chest x-ray showed reduced lung volumes with accentuation of markings. Outpatient chest x-ray showed right upper lung infiltrate. He was then admitted for evaluation of sepsis with fever and leukocytosis, abdominal distention possible abdominal sepsis. He was given respiratory treatments. Patient was febrile and was noted to be sinus tachycardic. He was continued on IV hydration and IV antibiotics. Urologist was consulted. Patient had an indwelling Lynn catheter. Had a history of right ureter renal calculus and hydronephrosis. He had recent evaluation on May where a stent was attempted however was unsuccessful. He was continued on Flomax and Proscar. Renal ultrasound was done and showed cystic structure on the left kidney, no hydronephrosis. Patient may eventually need nephrostomy. Urine culture showed growth of ESBL E. coli. Repeat urine culture with growth of pansensitive Pseudomonas. Blood culture did not isolate any growth. He eventually defervesced. He was discharged back to snf. 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 DISCHARGE MEDICATIONS: Refer to medication reconciliation list. Continue with Levaquin 500 mg daily times 10 days. I have been assigned to complete a discharge summary on this account, I was not involved with the patient's management. Kenyetta Shannon NP Jul 12, 2018 14:36
== END 2018-07-11 13:55 | DRG 871 ==
LOC: EDBD 15:39 → EMR 17:56 → EDBEDREQ 18:24 → 4E 19:08 → EDBEDREQ 22:17 → 2E 07-06 05:56
DX: A41.9 Sepsis, unspecified organism (principal); J18.9 Pneumonia, unspecified organism; J96.00 Acute respiratory failure, unspecified whether with hypoxia or hypercapnia; I69.351 Hemiplegia and hemiparesis following cerebral infarction affecting right dominant side; K94.23 Gastrostomy malfunction; N39.0 Urinary tract infection, site not specified; N20.1 Calculus of ureter; I69.920 Aphasia following unspecified cerebrovascular disease; Z66 Do not resuscitate; Y83.3 Surgical operation with formation of external stoma as the cause of abnormal reaction of the patient, or of later complication, without mention of misadventure at the time of the procedure; I10 Essential (primary) hypertension; I69.320 Aphasia following cerebral infarction; R13.10 Dysphagia, unspecified; I25.10 Atherosclerotic heart disease of native coronary artery without angina pectoris; J44.9 Chronic obstructive pulmonary disease, unspecified; N40.1 Benign prostatic hyperplasia with lower urinary tract symptoms; R33.8 Other retention of urine; N50.89 Other specified disorders of the male genital organs; R80.9 Proteinuria, unspecified; N31.9 Neuromuscular dysfunction of bladder, unspecified; B96.20 Unspecified Escherichia coli [E. coli] as the cause of diseases classified elsewhere; Z16.12 Extended spectrum beta lactamase (ESBL) resistance
CPT/HCPCS: 36415; 71045; 76770; 80048; 80053; 80076; 80202; 81003; 82248; 82553; 83605; 83735; 83880; 84484; 85025; 87040; 87081; 87086; 87181; 93005; 93970; 94640; 94664; 94760; 96361; 96365; 99285

== ENCOUNTER 2018-08-11 11:41 | Inpatient (IN) | payer MEDICARE, BC ==
[~2018-08-11] VITALS: Ht 165.1 cm; Wt 63.5 kg
[~2018-08-11 11:41] MED LIST changes: +ALBUTEROL SULF8.5 GM INH; +ALBUTEROL2.5 MG/3 M INH; +BISACODYL10 MG/30 M RC; +CALCIUM CARBON600 M1 GT; +CATAPRES0.2 MG GT; +DOCUSATE SODIU100 MG GT; +LANSOPRAZOLE30 MG GT; +LEVALBUTER0.31 MG/3 IH; +LEVAQUIN500 MG ORAL; +METOPROLOL TAR100 M1 GT; +MIRALAX17 G2 GT; +NORCO 5-325 TA1 EACH GT; +POTASSIUM CHLO20 ME1 GT; +PREVACID30 M2 GT; +SENOKOT8.6 MG GT; +SODIUM CHLORIDE1 GM GT; +Sodium chloride GT; +VASOTEC20 MG GT
--- NOTE | 2018-08-11 11:50 | NUR ---
ED Nurse Note: Patient biba from [place] c/o of inflamed g tube, patient is awake and is able to nod head but is unable to verbalize pain, upon arrival patient's G tube does have a whitish dicharge surrounding the tube itself. patient is on a gusset stitcher, no distress noted
[2018-08-11 12:00] VITALS: BP 133/96
--- NOTE | 2018-08-11 12:31 | Emergency Room Report ---
History of Present Illness General Chief Complaint: General Complaint Source: Medical Record, EMS Present Illness HPI Patient arrives from a nursing care facility for possible infected feeding tube. The patient offers no history. The patient is nonverbal. History of CVA. Allergies: Coded Allergies: NO KNOWN ALLERGIES (Unverified Allergy, Unknown, 03/02/15) Patient History Past Medical History: see triage record Past Surgical History: unable to obtain Pertinent Family History: unable to obtain Nursing Documentation-PMH Past Medical History: No History, Except For Hx Cardiac Problems: Yes Hx Hypertension: Yes Hx Pacemaker: No Hx Asthma: No Hx COPD: Yes Hx Diabetes: No Hx Cancer: No Hx Gastrointestinal Problems: Yes - abdominal distension, gastrostomy malfunction Hx Dialysis: No Hx Neurological Problems: Yes - contracture 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 Hx Seizures: Yes Hx Paralysis: Yes - right sided hemiplegia Hx Head Trauma: Yes - INTERCEREBRAL HEMORRHAGE Hx Speech Problem: Yes - APHASIA Hx Aphasia: Yes Hx Dysphasia: Yes Hx Weakness: Yes - Right sided weakness Review of Systems All Other Systems: limited Physical Exam Vital Signs Date Time Temp Pulse Resp B/P (MAP) Pulse Ox O2 Delivery O2 Flow Rate FiO2 08/11/18 11:44 98.1 108 20 133/96 93 Room Air ENT: normal ENT inspection Cardiovascular #1: normal inspection, no edema Gastrointestinal: other - G Tube is intact. surrounding erythema. no fluctuance Neurologic: other - unable to obtain Medical Decision Making Diagnostic Impression: Primary Impression: cellulitis ER Course We were able to to flush the G-tube. However, he does have surrounding cellulitis. We will admit the patient for IV antibiotics. Laboratory Tests Test 08/11/18 13:00 White Blood Count 7.7 K/UL (4.8-10.8) Red Blood Count 5.45 M/UL (4.70-6.10) Hemoglobin 15.9 G/DL (14.2-18.0) Hematocrit 48.8 % (42.0-52.0) Mean Corpuscular Volume 89 FL (80-99) Mean Corpuscular Hemoglobin 29.2 PG (27.0-31.0) Mean Corpuscular Hemoglobin Concent 32.6 G/DL (32.0-36.0) Red Cell Distribution Width 14.2 % (11.6-14.8) Platelet Count 217 K/UL (150-450) Mean Platelet Volume 7.5 FL (6.5-10.1) Neutrophils (%) (Auto) 71.0 % (45.0-75.0) Lymphocytes (%) (Auto) 16.6 % (20.0-45.0) L Monocytes (%) (Auto) 9.5 % (1.0-10.0) Eosinophils (%) (Auto) 1.7 % (0.0-3.0) Basophils (%) (Auto) 1.3 % (0.0-2.0) Sodium Level 140 MMOL/L (136-145) Potassium Level 4.3 MMOL/L (3.5-5.1) Chloride Level 101 MMOL/L (98-107) Carbon Dioxide Level 29 MMOL/L (21-32) Anion Gap 11 mmol/L (5-15) Blood Urea Nitrogen 20 mg/dL (7-18) H Creatinine 1.0 MG/DL (0.55-1.30) Estimate Glomerular Filtration Rate > 60 mL/min (>60) Glucose Level 105 MG/DL (74-106) Calcium Level 10.1 MG/DL (8.5-10.1) Total Bilirubin 1.0 MG/DL (0.2-1.0) Aspartate Amino Transferase (AST) 20 U/L (15-37) Alanine Aminotransferase (ALT) 19 U/L (12-78) Alkaline Phosphatase 214 U/L (46-116) H Total Protein 8.8 G/DL (6.4-8.2) H Albumin 3.9 G/DL (3.4-5.0) Globulin 4.9 g/dL Albumin/Globulin Ratio 0.8 (1.0-2.7) L Last Vital Signs Date Time Temp Pulse Resp B/P (MAP) Pulse Ox O2 Delivery O2 Flow Rate FiO2 08/11/18 12:00 98.1 106 20 133/96 93 Room Air Disposition: ADMITTED INPATIENT Condition: Serious MELO BURT Aug 11, 2018 12:31
[2018-08-11 13:27] LABS: BASOPHILS % (AUTO) 1.3 % (0.0-2.0); EOSINOPHILS % (AUTO) 1.7 % (0.0-3.0); HEMATOCRIT 48.8 % (42.0-52.0); HEMOGLOBIN 15.9 G/DL (14.2-18.0); LYMPHOCYTES % (AUTO) 16.6 % (20.0-45.0); MEAN CORPUSCULAR VOLUME 89 FL (80-99); MONOCYTES % (AUTO) 9.5 % (1.0-10.0); PLATELET COUNT 217 K/UL (150-450); RED BLOOD COUNT 5.45 M/UL (4.70-6.10); RED CELL DISTRIBUTION WIDTH 14.2 % (11.6-14.8); WHITE BLOOD COUNT 7.7 K/UL (4.8-10.8)
[2018-08-11 13:36] LABS: ANION GAP 11 mmol/L (5-15); BLOOD UREA NITROGEN 20 mg/dL (7-18); CALCIUM 10.1 MG/DL (8.5-10.1); CARBON DIOXIDE 29 MMOL/L (21-32); CHLORIDE 101 MMOL/L (98-107); POTASSIUM 4.3 MMOL/L (3.5-5.1); SODIUM 140 MMOL/L (136-145)
[2018-08-11 13:46] LABS: ALANINE AMINOTRANSFERASE 19 U/L (12-78); ALBUMIN 3.9 G/DL (3.4-5.0); ALBUMIN/GLOBULIN RATIO 0.8 (1.0-2.7); ALKALINE PHOSPHATASE 214 U/L (46-116); ASPARTATE AMINO TRANSFERASE 20 U/L (15-37)
[2018-08-11] MEDS ORDERED: ceFAZolin 1gm/50ml Premix 50 ML IV ONE (14:15)
--- NOTE | 2018-08-11 16:30 | NUR ---
TRANSFER TO FLOOR: Patient transferred to [facility]. Report given to NAV [place].
--- NOTE | 2018-08-11 16:35 | NUR ---
NURSE NOTES: Received patient from ER. Patient is awake, non-verbal but patient nods his head to some questions. Patient is not in acute respiratory/cardiac distress. Breathing is even and unlabored. Denies any pain or discomfort. Skin assessment done noted with open wound on right sole near right big toe and redness around GT site. And GT is leaking. Rn changed the dressing and took the picture.right side with contracture and right foot drop. No belongings. IV on right hand intact, no s/s of infiltration. Unable to get medical records from the patient since he is non-verbal. Medical records obtained from custodial records. Lynn intact, draining well to gravity. Orientation given about the unit,patient nodded his head. Call light within reach, bed is in lowest position and locked.Will continue plan of care. dr. Oquendo was paged.
--- NOTE | 2018-08-11 17:00 | NUR ---
NURSE NOTES: Received admission orders from Dr. Alarcon to continue fci meds, verified meds with doctor. No IVF per Dr. Alarcon, Dr. Parra for consults and RN relayed that GT is leaking, Dr. Alarcon said may use the GT for meds and keep the patient on NPO.
[2018-08-11] MEDS ORDERED: Albuterol ud Inhalation HHN PRN (18:00)
[2018-08-11] MEDS ORDERED: cloNIDine 0.2mg Tab GT PRN (18:00)
[2018-08-11] MEDS ORDERED: HYDROcodone/Acetamin 5/325 tab GT PRN (18:00)
[2018-08-11] MEDS ORDERED: Sennosides 8.6mg tab GT PRN (18:00)
--- NOTE | 2018-08-11 18:42 | History & Physical ---
History and Physical History & Physicial [id number] gt cellulitis cva with right hp expressive aphasia [facility] Indigo Alarcon DO Aug 11, 2018 18:42
--- NOTE | 2018-08-11 19:30 | NUR ---
HAND-OFF: Report given to Mary.
--- NOTE | 2018-08-11 19:35 | NUR ---
NURSE NOTES: Received patient in bed. On RA, no SOB no acute distress, no s/sx of pain. on NPO status. R hand IV intact patent. GT clamped. F/C intact inplace draining yellowish urine. Bed in lowest position, locked, alarms on. Call light in reach.
[2018-08-11 20:00] VITALS: BP 115/84
[2018-08-11] MEDS: Sennosides 8.6mg tab GT SCH (21:11)
[2018-08-11] MEDS: Tamsulosin 0.4mg cap ORAL SCH (21:11)
[2018-08-11] MEDS: Vancomycin 750mg/D5W 275ml IVPB SCH ×2 (21:11)
[2018-08-11] MEDS: Sodium Chloride 1gm Tab GT SCH (21:11)
[2018-08-11] MEDS: D5NS 1,000 ML IV SCH (21:49)
--- NOTE | 2018-08-11 22:15 | History and Physical Report ---
DATE OF ADMISSION: 08/11/2018 REASON FOR ADMISSION: G-tube insertion site cellulitis. HISTORY OF PRESENT ILLNESS: The patient was admitted. He has a history of CVA with right hemiparesis as well as expressive aphasia, came in with hypertension, which was subsequently controlled, but noted to have a significant amount of erythema and some purulent discharge and malfunctioning G-tube. He was initially given Ancef, but with the history of being in a nosocomial environment, this has been upgraded to Vanco. PAST MEDICAL HISTORY: Includes coronary artery disease, hypertension, COPD, G-tube placement with multiple episodes of G-tube malfunction, CVA with right hemiparesis and cerebral hemorrhage, expressive aphasia, seizure disorder, and dysphagia. SOCIAL HISTORY: Unavailable. MEDICATIONS: Pre-hospital and current hospital medications reviewed and reconciled and documented in the electronic medical record by dose, frequency, and route. ALLERGIES: None. REVIEW OF SYSTEMS: Unavailable as the patient has expressive aphasia. PHYSICAL EXAMINATION: GENERAL: At the time of my exam, he is awake. He is oriented. He is currently in no acute respiratory distress. VITAL SIGNS: He is afebrile. Pulse is 102, blood pressure 133/96, he is 93% on room air. HEENT: Normocephalic, atraumatic. Oropharynx is dry. Nasal mucosa is dry. NECK: Supple. LUNGS: Decreased at bases. HEART: Regular rate and rhythm without murmur. ABDOMEN: Soft, nontender. He has about 3-inch circumferential area of erythema and edema around his G-tube site and purulent material is leaking. EXTREMITIES: He has positive edema in the upper and lower extremities. NEUROLOGIC: He has right hemiparesis, expressive aphasia. LABORATORY DATA: His sodium is 140, potassium 4.3, chloride 101, bicarb 29, BUN 20, creatinine 1, his glucose is 105. His white count 7.7, hemoglobin 15.9, and platelets are 217. IMAGING: No imaging was performed. ASSESSMENT: G-tube cellulitis, malfunctioning G-tube, history of seizure, history of CVA from a right intracranial hemorrhage, right hemiparesis, expressive aphasia, hypertension, coronary artery disease. PLAN: For the patient, he has been admitted. His present medications have been resumed. DVT prophylaxis. Following up with GI. At this time, we will monitor his G-tube site and IV antibiotics. Nebulizers as needed. Fall precautions. We will continue to follow the patient for the remainder of his hospital stay. Indigo Alarcon D.O. DR: PRABHAKAR JOB#: [id number] CC:
[2018-08-11] MEDS: ceFAZolin sod 1 GM in D5W 55 ML IVPB SCH (22:55)
[2018-08-12] VITALS: BP 141/96
[2018-08-12 04:00] VITALS: BP 154/93
[2018-08-12] MEDS: ceFAZolin sod 1 GM in D5W 55 ML IVPB SCH ×2 (05:00→13:02)
[2018-08-12 07:37] LABS: BASOPHILS % (AUTO) 1.3 % (0.0-2.0); EOSINOPHILS % (AUTO) 2.1 % (0.0-3.0); HEMATOCRIT 45.1 % (42.0-52.0); HEMOGLOBIN 14.6 G/DL (14.2-18.0); LYMPHOCYTES % (AUTO) 18.1 % (20.0-45.0); MEAN CORPUSCULAR VOLUME 92 FL (80-99); MONOCYTES % (AUTO) 10.9 % (1.0-10.0); NEUTROPHILS % (AUTO) 67.7 % (45.0-75.0); PLATELET COUNT 207 K/UL (150-450); RED BLOOD COUNT 4.92 M/UL (4.70-6.10); RED CELL DISTRIBUTION WIDTH 14.3 % (11.6-14.8); WHITE BLOOD COUNT 5.7 K/UL (4.8-10.8)
--- NOTE | 2018-08-12 07:46 | NUR ---
HAND-OFF: Report given to Radha CHOPRA.
--- NOTE | 2018-08-12 07:50 | NUR ---
NURSE NOTES: Pt is nonverbal but is able to communicate using hand gestures. Will require to be repositioned Q 2 hours for comfort and preventive measures
[2018-08-12 08:00] VITALS: BP 149/91
[2018-08-12 08:04] LABS: ANION GAP 8 mmol/L (5-15); BLOOD UREA NITROGEN 24 mg/dL (7-18); CALCIUM 9.1 MG/DL (8.5-10.1); CARBON DIOXIDE 26 MMOL/L (21-32); CHLORIDE 107 MMOL/L (98-107); CREATININE 0.9 MG/DL (0.55-1.30); POTASSIUM 3.9 MMOL/L (3.5-5.1); SODIUM 141 MMOL/L (136-145)
[2018-08-12] MEDS: Sodium Chloride 1gm Tab GT SCH ×2 (08:55→20:33)
[2018-08-12] MEDS: Miralax 17gm pkt GT SCH (08:55)
[2018-08-12] MEDS: Lisinopril 20mg tab ORAL SCH ×2 (08:56→17:39)
[2018-08-12] MEDS: Tums 500mg GT SCH (08:56)
[2018-08-12] MEDS: Docusate 100mg/10ml Liq NG SCH (08:56)
[2018-08-12] MEDS: Vancomycin 750mg/D5W 275ml IVPB SCH ×4 (09:03→20:40)
--- NOTE | 2018-08-12 09:59 | NUR ---
NURSE NOTES: Dr Oquendo here to see pt, gave orders to place pt under consult with Fredy. He also gave orders for pt to be seen by Fidel. Call placed to Dr. Daniel , verbal message left at . Dr Novak phoned as well to inform that Dr. Oquendo was here and inquired about GI consult.
--- NOTE | 2018-08-12 10:07 | NUR ---
NURSE NOTES: Dr. Aaron returned call stated he would be in today to see pt.
[2018-08-12] MEDS: D5NS 1,000 ML IV SCH ×2 (11:05→17:39)
--- NOTE | 2018-08-12 11:18 | NUR ---
NURSE NOTES: Emmanuel METAL CASTER is here to see pt, Medications given via gtube, gtube patent , some grainage around site. No facial grimace during medication administration. Current plan of care will be followed
[2018-08-12 12:00] VITALS: BP 140/88
--- NOTE | 2018-08-12 13:51 | GI Initial Consult Note ---
History of Present Illness General Date patient seen: Aug 12, 2018 Time patient seen: 13:46 Reason for Hospitalization: General Complaint Referring physician: JEFF Reason for Consultation: GT SITE CELLULITIS Present Illness HPI The patient was admitted. He has a history of CVA with right hemiparesis as well as expressive aphasia, came in with hypertension, which was subsequently controlled, but noted to have a significant amount of erythema and some purulent discharge and malfunctioning G-tube. He was initially given Ancef, but with the history of being in a nosocomial environment, this has been upgraded to Vanco. GI consulted for GT site cellulitis. ROS limited, patient nonverbal. Patient seen, awake alert no apparent distress, no signs or symptoms of nausea or vomiting. GT site assessed; noted to have severe erythema, mild purulent drainage from the site. The patient has a recent history of PEG placement back in May 2018. Labs reviewed; no anemia, no transaminitis, no leukocytosis. Home Meds Active Scripts Levofloxacin* (LEVAQUIN*) 500 Mg Tablet, 500 MG ORAL DAILY for 10 Days, TAB Prov:Toño Jane MD 07/11/18 Reported Medications Sodium Chloride* (SODIUM CHLORIDE*) 1 Gm Tablet, 1 GM GT BID, TAB 07/05/18 Albuterol Sulfate* (ALBUTEROL SULFATE HHN*) 2.5 Mg/3 Ml Vial.neb, 3 ML INH Q4H PRN for Shortness of Breath, EA 07/05/18 Bisacodyl (BISACODYL) 10 Mg/30 Ml Enema, 10 MG RC PRN, EA 07/05/18 Docusate Sodium* (DOCUSATE SODIUM*) 100 Mg Capsule, 100 MG GT DAILY, CAP 07/05/18 Calcium Carbonate (CALCIUM CARBONATE) 600 Mg Tablet, 600 MG GT DAILY, TAB 07/05/18 Metoprolol Tartrate* (METOPROLOL TARTRATE*) 100 Mg Tablet, 100 MG GT EVERY 8 HOURS, TAB 07/05/18 Enalapril Maleate* (VASOTEC*) 20 Mg Tablet, 20 MG GT EVERY 12 HOURS, TAB 07/05/18 Sennosides (Senokot) 8.6 Mg Tablet, 8.6 MG GT BEDTIME, TAB 07/05/18 Lansoprazole* (LANSOPRAZOLE*) 30 Mg Capsule.dr, 30 MG GT DAILY, CAP 07/05/18 Potassium Chloride* (K-DUR*) 20 Meq Tab.er.prt, 20 MEQ GT BID 07/05/18 Hydrocodone Bit/Acetaminophen 5-325* (NORCO 5-325*) 1 Each Tablet, 1 TAB GT Q4H PRN for Severe Pain (Pain Scale 7-10), TAB 0 Refills 07/05/18 Polyethylene Glycol 3350* (MIRALAX*) 17 Gm Powd.pack, 17 GM GT DAILY, PACKET 07/05/18 Levalbuterol Hcl (LEVALBUTEROL HCL) 0.31 Mg/3 Ml Vial.neb, 0.31 MG IH EVERY 4 HOURS PRN for Shortness of Breath, VIAL 07/05/18 Tamsulosin Hcl (TAMSULOSIN HCL*) 0.4 Mg Cap.er.24h, 0.4 MG GT BEDTIME, CAP 07/05/18 Clonidine Hcl* (CATAPRES*) 0.2 Mg Tablet, 0.2 MG GT Q4HR PRN for For High Blood Pressure, TAB 07/05/18 Finasteride* (PROSCAR*) 5 Mg Tablet, 5 MG GT DAILY, TAB 06/01/17 Ondansetron* (ZOFRAN*) 4 Mg Tablet, 4 MG GT Q6H PRN for Nausea & Vomiting, TAB 03/02/15 Med list reviewed/reconciled: Yes Allergies: Coded Allergies: NO KNOWN ALLERGIES (Unverified Allergy, Unknown, 03/02/15) Patient History Family History Narrative PAST MEDICAL HISTORY: Includes coronary artery disease, hypertension, COPD, G- tube placement with multiple episodes of G-tube malfunction, CVA with right hemiparesis and cerebral hemorrhage, expressive aphasia, seizure disorder, and dysphagia. Review of Systems All Other Systems: limited Physical Exam Vital Signs Date Time Temp Pulse Resp B/P (MAP) Pulse Ox O2 Delivery O2 Flow Rate FiO2 08/11/18 11:44 98.1 108 20 133/96 93 Room Air 08/11/18 20:11 21 Sp02 EP Interpretation: reviewed Labs Laboratory Tests Test 08/12/18 06:20 White Blood Count 5.7 K/UL (4.8-10.8) Red Blood Count 4.92 M/UL (4.70-6.10) Hemoglobin 14.6 G/DL (14.2-18.0) Hematocrit 45.1 % (42.0-52.0) Mean Corpuscular Volume 92 FL (80-99) Mean Corpuscular Hemoglobin 29.6 PG (27.0-31.0) Mean Corpuscular Hemoglobin Concent 32.3 G/DL (32.0-36.0) Red Cell Distribution Width 14.3 % (11.6-14.8) Platelet Count 207 K/UL (150-450) Mean Platelet Volume 6.9 FL (6.5-10.1) Neutrophils (%) (Auto) 67.7 % (45.0-75.0) Lymphocytes (%) (Auto) 18.1 % (20.0-45.0) L Monocytes (%) (Auto) 10.9 % (1.0-10.0) H Eosinophils (%) (Auto) 2.1 % (0.0-3.0) Basophils (%) (Auto) 1.3 % (0.0-2.0) Sodium Level 141 MMOL/L (136-145) Potassium Level 3.9 MMOL/L (3.5-5.1) Chloride Level 107 MMOL/L (98-107) Carbon Dioxide Level 26 MMOL/L (21-32) Anion Gap 8 mmol/L (5-15) Blood Urea Nitrogen 24 mg/dL (7-18) H Creatinine 0.9 MG/DL (0.55-1.30) Estimat Glomerular Filtration Rate > 60 mL/min (>60) Glucose Level 116 MG/DL (74-106) H Calcium Level 9.1 MG/DL (8.5-10.1) Magnesium Level 2.4 MG/DL (1.8-2.4) General Appearance: no apparent distress Head: normocephalic EENT: normal ENT inspection, TMs normal Neck: supple Respiratory: normal breath sounds, no respiratory distress Cardiovascular: normal rate Gastrointestinal: soft, other - See HPI Rectal: deferred Musculoskeletal: back normal Neurologic: alert, responsive Skin: normal inspection, normal color, no rash, warm/dry Lymphatic: normal inspection, no adenopathy Current Medications Current Medications Medications (Trade) Dose Ordered Sig/Kehinde Route PRN Reason Start Time Stop Time Status Last Admin Dose Admin Acetaminophen/ Hydrocodone Bitart ([place] 5/325) 1 tab Q4H PRN GT Severe Pain (Pain Scale 7-10) 08/11/18 18:00 08/18/18 17:59 Albuterol Sulfate (Proventil) 2.5 mg Q4H PRN HHN Shortness of Breath 08/11/18 18:00 08/16/18 17:59 Calcium Carbonate (Tums) 500 mg DAILY GT 08/12/18 09:00 09/11/18 08:59 08/12/18 08:56 Cefazolin Sodium 1 gm/Dextrose 55 ml @ 110 mls/hr Q8HR IVPB 08/11/18 22:00 08/18/18 21:59 08/12/18 13:02 Clonidine HCl (Catapres tab) 0.2 mg Q4H PRN GT For High Blood Pressure 08/11/18 18:00 09/10/18 17:59 Dextrose/Sodium Chloride 1,000 ml @ 75 mls/hr [id number] IV 08/11/18 21:45 09/10/18 21:44 08/11/18 21:49 Docusate Sodium (Colace) 100 mg DAILY NG 08/12/18 09:00 09/11/18 08:59 08/12/18 08:56 Finasteride (Proscar) 5 mg DAILY ORAL 08/12/18 09:00 09/11/18 08:59 08/12/18 08:55 Lansoprazole (Prevacid) 30 mg DAILY GT 08/12/18 09:00 09/11/18 08:59 08/12/18 08:55 Lisinopril (Prinivil) 20 mg BID ORAL 08/12/18 09:00 09/11/18 08:59 08/12/18 08:56 Metoprolol Tartrate (Lopressor) 100 mg EVERY 8 HOURS GT 08/11/18 22:00 09/10/18 21:59 08/12/18 13:01 Ondansetron HCl (Zofran) 4 mg Q6H PRN GT Nausea & Vomiting 08/11/18 18:00 09/10/18 17:59 Polyethylene Glycol (Miralax) 17 gm DAILY GT 08/12/18 09:00 09/11/18 08:59 08/12/18 08:55 Potassium Chloride (K-Dur) 20 meq Q12HR GT 08/11/18 21:00 09/10/18 20:59 2/25/19 08:56 Sennosides (Senokot) 8.6 mg BEDTIME GT 08/11/18 21:00 09/10/18 20:59 08/11/18 21:11 Sennosides (Senokot) 8.6 mg BEDTIME PRN GT Constipation 08/11/18 18:00 09/10/18 17:59 Sodium Chloride (NaCl) 1 gm Q12HR GT 08/11/18 21:00 09/10/18 20:59 08/12/18 08:55 Tamsulosin HCl (Flomax) 0.4 mg BEDTIME ORAL 08/11/18 21:00 09/10/18 20:59 08/11/18 21:11 Vancomycin HCl (Vanco rx to dose) 1 ea DAILY PRN MISC Per rx protocol 08/11/18 19:15 09/10/18 19:14 Vancomycin HCl 750 mg/Dextrose 275 ml @ 183.333 mls/hr Q12H IVPB 08/11/18 21:00 08/16/18 20:59 08/12/18 09:03 GI: Plan Problems: (1) Cellulitis (2) Abdominal wall cellulitis (3) Sepsis due to pneumonia (4) Malfunction of gastrostomy tube (5) G-tube replacement (6) Malfunction of gastrostomy tube (7) Abdominal distension Plan new Gtube to bedside, will replace, obtain imaging confirmation post Obtain wound culture Antibiotics per infectious disease zinc oxide daily around GT site daily GT site care 3 times daily and as needed PPI GTFs per RD Follow labs Discussed with Dr. Parra. Thank you for this patient referral, we will follow. The patient was seen and examined at bedside and all new and available data was reviewed in the patients chart. I agree with the above findings, impression and plan. (Patient seen earlier today. Signature stamp does not reflect patient encounter time.). - MD Maria Del Carmen Kim,[facility] SALES SUPPORT ASSISTANT Aug 12, 2018 13:51
[2018-08-12 16:00] VITALS: BP 144/82
--- NOTE | 2018-08-12 16:55 | General Progress Note ---
Assessment/Plan Assessment/Plan G-tube cellulitis malfunctioning G-tube history of seizure, history of intracranial hemorrhage with right hemiparesis, expressive aphasia hypertension coronary artery disease Abx, called ID GI consult, replace GT cont IVF, hold feeds cont BP rx Subjective Allergies: Coded Allergies: NO KNOWN ALLERGIES (Unverified Allergy, Unknown, 03/02/15) Objective Last 24 Hour Vital Signs Date Time Temp Pulse Resp B/P (MAP) Pulse Ox O2 Delivery O2 Flow Rate FiO2 08/12/18 13:01 79 140/88 08/12/18 12:00 98.5 79 18 140/88 (105) 08/12/18 10:07 84 20 Room Air 21 08/12/18 09:00 Room Air 08/12/18 08:56 149/91 08/12/18 08:00 98.2 18 149/91 (110) 08/12/18 05:00 82 154/93 08/12/18 04:00 98.3 82 18 154/93 (113) 96 08/12/18 00:00 97.7 87 18 141/96 (111) 95 08/11/18 21:49 103 115/84 08/11/18 21:00 Room Air 08/11/18 20:11 99 18 Room Air 21 08/11/18 20:00 97.3 103 18 115/84 (94) 94 Intake and Output 08/11/18 08/12/18 18:59 06:59 Intake Total 0 ml 835.000 ml Output Total 500 ml 750 ml Balance -500 ml 85.000 ml Intake Oral 0 ml IV Total 835.000 ml Output Urine Total 500 ml 750 ml # Bowel Movements 1 Laboratory Tests 08/12/18 06:20: White Blood Count 5.7, Red Blood Count 4.92, Hemoglobin 14.6, Hematocrit 45.1, Mean Corpuscular Volume 92, Mean Corpuscular Hemoglobin 29.6, Mean Corpuscular Hemoglobin Concent 32.3, Red Cell Distribution Width 14.3, Platelet Count 207, Mean Platelet Volume 6.9, Neutrophils (%) (Auto) 67.7, Lymphocytes (%) (Auto) 18.1L, Monocytes (%) (Auto) 10.9H, Eosinophils (%) (Auto) 2.1, Basophils (%) ( Auto) 1.3, Sodium Level 141, Potassium Level 3.9, Chloride Level 107, Carbon Dioxide Level 26, Anion Gap 8, Blood Urea Nitrogen 24H, Creatinine 0.9, Estimat Glomerular Filtration Rate > 60, Glucose Level 116H, Calcium Level 9.1, Magnesium Level 2.4 Height (Feet): 5 Height (Inches): 4.00 Weight (Pounds): 138 Jose J Oquendo MD Aug 12, 2018 16:55
--- NOTE | 2018-08-12 17:35 | Infectious Diseases Prog Note ---
Assessment/Plan Assessment/Plan Full consult dictated: A) abdominal wall cellulitis g-tube infection/cellulitis malfunctioning g-tube pmh noted allergies - nkda P) vancomycin and cefepime check wound culture GI f/u for g-tube replacement continue per Dr. Oquendo thank you Subjective Allergies: Coded Allergies: NO KNOWN ALLERGIES (Unverified Allergy, Unknown, 03/02/15) Objective Vital Signs Last 24 Hour Vital Signs Date Time Temp Pulse Resp B/P (MAP) Pulse Ox O2 Delivery O2 Flow Rate FiO2 08/12/18 16:00 98.4 83 18 144/82 (102) 08/12/18 13:01 79 140/88 08/12/18 12:00 98.5 79 18 140/88 (105) 08/12/18 10:07 84 20 Room Air 21 08/12/18 09:00 Room Air 08/12/18 08:56 149/91 08/12/18 08:00 98.2 18 149/91 (110) 08/12/18 05:00 82 154/93 08/12/18 04:00 98.3 82 18 154/93 (113) 96 08/12/18 00:00 97.7 87 18 141/96 (111) 95 08/11/18 21:49 103 115/84 08/11/18 21:00 Room Air 08/11/18 20:11 99 18 Room Air 21 08/11/18 20:00 97.3 103 18 115/84 (94) 94 Height (Feet): 5 Height (Inches): 4.00 Weight (Pounds): 138 Laboratory Tests Test 08/12/18 06:20 White Blood Count 5.7 K/UL (4.8-10.8) Red Blood Count 4.92 M/UL (4.70-6.10) Hemoglobin 14.6 G/DL (14.2-18.0) Hematocrit 45.1 % (42.0-52.0) Mean Corpuscular Volume 92 FL (80-99) Mean Corpuscular Hemoglobin 29.6 PG (27.0-31.0) Mean Corpuscular Hemoglobin Concent 32.3 G/DL (32.0-36.0) Red Cell Distribution Width 14.3 % (11.6-14.8) Platelet Count 207 K/UL (150-450) Mean Platelet Volume 6.9 FL (6.5-10.1) Neutrophils (%) (Auto) 67.7 % (45.0-75.0) Lymphocytes (%) (Auto) 18.1 % (20.0-45.0) L Monocytes (%) (Auto) 10.9 % (1.0-10.0) H Eosinophils (%) (Auto) 2.1 % (0.0-3.0) Basophils (%) (Auto) 1.3 % (0.0-2.0) Sodium Level 141 MMOL/L (136-145) Potassium Level 3.9 MMOL/L (3.5-5.1) Chloride Level 107 MMOL/L (98-107) Carbon Dioxide Level 26 MMOL/L (21-32) Anion Gap 8 mmol/L (5-15) Blood Urea Nitrogen 24 mg/dL (7-18) H Creatinine 0.9 MG/DL (0.55-1.30) Estimat Glomerular Filtration Rate > 60 mL/min (>60) Glucose Level 116 MG/DL (74-106) H Calcium Level 9.1 MG/DL (8.5-10.1) Magnesium Level 2.4 MG/DL (1.8-2.4) Current Medications Medications (Trade) Dose Ordered Sig/Kehinde Route PRN Reason Start Time Stop Time Status Last Admin Dose Admin Acetaminophen/ Hydrocodone Bitart ([place] 5/325) 1 tab Q4H PRN GT Severe Pain (Pain Scale 7-10) 08/11/18 18:00 08/18/18 17:59 Albuterol Sulfate (Proventil) 2.5 mg Q4H PRN HHN Shortness of Breath 08/11/18 18:00 08/16/18 17:59 Calcium Carbonate (Tums) 500 mg DAILY GT 08/12/18 09:00 09/11/18 08:59 08/12/18 08:56 Clonidine HCl (Catapres tab) 0.2 mg Q4H PRN GT For High Blood Pressure 08/11/18 18:00 09/10/18 17:59 Dextrose/Sodium Chloride 1,000 ml @ 75 mls/hr [id number] IV 08/11/18 21:45 09/10/18 21:44 08/11/18 21:49 Docusate Sodium (Colace) 100 mg DAILY NG 08/12/18 09:00 09/11/18 08:59 08/12/18 08:56 Finasteride (Proscar) 5 mg DAILY ORAL 08/12/18 09:00 09/11/18 08:59 08/12/18 08:55 Lansoprazole (Prevacid) 30 mg DAILY GT 08/12/18 09:00 09/11/18 08:59 08/12/18 08:55 Lisinopril (Prinivil) 20 mg BID ORAL 08/12/18 09:00 09/11/18 08:59 08/12/18 08:56 Metoprolol Tartrate (Lopressor) 100 mg EVERY 8 HOURS GT 08/11/18 22:00 09/10/18 21:59 08/12/18 13:01 Ondansetron HCl (Zofran) 4 mg Q6H PRN GT Nausea & Vomiting 08/11/18 18:00 09/10/18 17:59 Polyethylene Glycol (Miralax) 17 gm DAILY GT 08/12/18 09:00 09/11/18 08:59 08/12/18 08:55 Potassium Chloride (K-Dur) 20 meq Q12HR GT 08/11/18 21:00 09/10/18 20:59 08/12/18 08:56 Sennosides (Senokot) 8.6 mg BEDTIME GT 08/11/18 21:00 09/10/18 20:59 08/11/18 21:11 Sennosides (Senokot) 8.6 mg BEDTIME PRN GT Constipation 08/11/18 18:00 09/10/18 17:59 Sodium Chloride (NaCl) 1 gm Q12HR GT 08/11/18 21:00 09/10/18 20:59 08/12/18 08:55 Tamsulosin HCl (Flomax) 0.4 mg BEDTIME ORAL 08/11/18 21:00 09/10/18 20:59 08/11/18 21:11 Vancomycin HCl (Vanco rx to dose) 1 ea DAILY PRN MISC Per rx protocol 08/11/18 19:15 09/10/18 19:14 Vancomycin HCl 750 mg/Dextrose 275 ml @ 183.333 mls/hr Q12H IVPB 08/11/18 21:00 08/16/18 20:59 08/12/18 09:03 Zinc Oxide (Zinc Oxide) 1 applic DAILY TOPIC 08/13/18 09:00 09/12/18 08:59 Rodriguez Hawthorne MD Aug 12, 2018 17:35
--- NOTE | 2018-08-12 17:58 | NUR ---
CASE MANAGEMENT: INITIAL REVIEW 08/12/2018 63 YO Bev BARTH FROM REHAB ON CC: G TUBE INFECTION PMHx: CVA. HTN. COPD. SI:ABD WALL CELLULITIS. T 98.1 HR 108 RR 20 B/P 133/96 SATS 93% ON RA BUN 20 ALP 214 IS: CEFAZOLIN IV X1 TYLENOL PO X1 PATIENT ADMITTED TO MED/SURG 08/11/2018 @ 1501 DCP: PATIENT TO BE DISCHARGED TO SNF ONCE MEDICALLY CLEARED. PLAN OF CARE: ABD WOUND CX WOUND CARE ID AND GI CONSULT Addendum: 08/12/18 at 2009 by Ara Blevins CM INTERQUAL MET
--- NOTE | 2018-08-12 19:45 | Consultation ---
DATE OF CONSULTATION: 08/12/2018 INFECTIOUS DISEASE CONSULTATION: CONSULTING PHYSICIAN: Rodriguez Hawthorne M.D. ATTENDING PHYSICIAN: Jose J Oquendo M.D. REFERRING PHYSICIAN: Jose J Oquendo M.D. REASON FOR CONSULTATION: Abdominal wall cellulitis and G-tube infection and malfunctioning G-tube. CHIEF COMPLAINT: The patient's chief complaint coming in to the hospital is abdominal wall cellulitis. HISTORY OF PRESENT ILLNESS: This is a 63-year-old male who is mostly nonverbal. The patient has dysphagia and G-tube, but now has a malfunctioning G-tube with G-tube infection abdominal wall cellulitis. Infectious Disease consultation requested for antibiotic management. The patient with abdominal wall cellulitis and G-tube infection. The patient is currently on vancomycin. I am adding cefepime for gram-negative coverage. Culture of the G-tube site is pending and has been ordered previously. The patient really cannot give any further history due to this. MAR was noted. Notes were reviewed. Case discussed with the RN. REVIEW OF SYSTEMS: CONSTITUTIONAL: He is alert, responsive with his eyes. He is nonverbal. He has generalized fatigue and weakness. No fevers. HEAD AND NECK: Limited communication. No obvious head and neck pain. CARDIAC: No chest pain or pressors. GASTROINTESTINAL: No nausea, vomiting, diarrhea. He has a G-tube infection with abdominal wall cellulitis. PULMONARY: No hemoptysis, secretions, cough, and congestion. SKIN: No rash or itching. EXTREMITIES: No extremity pain. NEUROLOGIC: No seizures. Generalized fatigue. No focal weakness. GENITOURINARY: He has a Lynn. PAST MEDICAL HISTORY: Includes the following: The patient has a past medical history of coronary artery disease, history of hypertension, history of G-tube placement, history of COPD, history of G-tube malfunction, history of CVA with weakness and right hemiparesis, history of cerebral hemorrhage, history of expressive aphasia, seizure disorder, and dysphagia. ALLERGIES: No known drug allergies. No antibiotic allergies. SOCIAL HISTORY: Negative for smoking, alcohol, drug abuse. FAMILY HISTORY: Noncontributory. Negative for exposure to tuberculosis or cancer. MEDICATIONS: Upon reviewing the MAR, the patient is on following medications: He is on zinc oxide, calcium carbonate, finasteride, Prevacid, docusate, lisinopril, metoprolol. He is on IV fluids, potassium, Senokot, tamsulosin or Flomax, Vanco, cefepime, albuterol, clonidine, hydrocodone, Zofran. Antibiotics, Vanco and cefepime. Outside medications are noted and reconciliated. PHYSICAL EXAMINATION: VITAL SIGNS: Temperature 98.4, pulse rate 83, respiratory rate 18, blood pressure 144/82, saturation is 96%. GENERAL: Alert, responsive, no acute distress. HEAD AND NECK: Oral exam, no thrush. Eye exam, no icterus. Neck is supple. No JVD. Normocephalic. CARDIAC: Regular. No obvious gallop or murmur. No friction rub. ABDOMEN: Soft. Positive bowel sounds. G-tube has infection with abdominal wall redness and warmth. Positive bowel sounds. No rebound. LUNGS: Clear bilaterally. No rhonchi or rales. SKIN: No other rash noted. MUSCULOSKELETAL: No effusions. Legs are without cellulitis. PERIPHERAL VASCULAR: No cyanosis or gangrene. GENITOURINARY: Has a Lynn. Urine is slightly cloudy. NEUROLOGIC: Generalized weakness. Responsive. He has hemiparesis on the right. LINE SITES: Without phlebitis. Wounds were reviewed. No acutely infected wounds noted on the sacral leg area upon reviewing the wound care photos. LABORATORY DATA: As follows: White count 5.7, hemoglobin 14.6. Creatinine is 0.9. LFTs were noted. Culture of the G-tube site or wound is pending. IMAGING STUDIES: Pending. ASSESSMENT AND PLAN: 1. The patient has abdominal wall cellulitis and G-tube site infection and G-tube site cellulitis. The patient is on Vanco. I am going to add cefepime for gram-negative coverage. There is not an uncommon pathogen G-tube infection and cellulitis. I agree with Vanco for MRSA and Streptococcus pyogenes coverage and begin cefepime for gram-negative coverage. We will G-tube culture. The patient also will need a GI referral, which will be obtained per Dr. Oquendo's note for G-tube replacement. The patient has a malfunction G-tube. Continue Vanco and cefepime. Check G-tube culture. Continue treatment for abdominal wall cellulitis and G-tube infection pending cultures. Check followup labs. Watch creatinine closely. 2. The patient has dysphagia and G-tube. 3. Hypertension. Blood pressure treatment per Dr. Oquendo. 4. CVA. 5. Right hemiparesis. 6. Cerebral hemorrhage. 7. Expressive aphasia. 8. Seizure disorder. 9. COPD. 10. Coronary artery disease. 11. Skin care protocol. 12. No known drug allergies. 13. Social history negative. 14. Family history noncontributory. 15. MAR was noted. 16. Case discussed with RN. 17. Continue treatment per primary consultants. Rodriguez Hawthorne M.D. DR: NELLY JOB#: [id number] CC:
--- NOTE | 2018-08-12 19:48 | NUR ---
NURSE NOTES: Received patient in bed, asleep, eyes closed, no acute distress noted or reported,patient is responsive to verbal and tactile stimuli. Call light is within reach, bed is in low position, locked and alarm is on. Will continue to monitor for safety and comfort.
[2018-08-12 20:00] VITALS: BP 152/100
--- NOTE | 2018-08-12 20:22 | NUR ---
NURSE NOTES: All anticipated needs required to be met 2 to nonverbal status. Is able to communicate minimally with hand gestures. Follows commands. Wound to gtube site swabbed and sent to lab, Bandage saturated, required to be changed. BM today abdomen remained slightly firm. Pt breathing room air. Dr Parra called to inform him that pt remains without NPO. gtube feeding remain pending . Current paln of acre will be followed.
--- NOTE | 2018-08-12 20:28 | NUR ---
HAND-OFF: Report given to .Bobbi CHOPRA
--- NOTE | 2018-08-12 20:29 | NUR ---
NURSE NOTES: Emmanuel gave orders for site to be cleaned with normal saline, pat dry apply zinc oxide and cover. Bandage clean and intact changed due to saturated site. He also stated he was going to change gtube at bedside. Oncoming nurse made aware
[2018-08-12] MEDS: Sennosides 8.6mg tab GT SCH (20:33)
[2018-08-12] MEDS: Tamsulosin 0.4mg cap ORAL SCH (20:34)
[2018-08-13] VITALS: BP 153/88
[2018-08-13 04:47] VITALS: BP 159/90
--- NOTE | 2018-08-13 07:00 | NUR ---
HAND-OFF: Report given to Manan CHOPRA.
[2018-08-13 07:33] LABS: BASOPHILS % (AUTO) 1.2 % (0.0-2.0); EOSINOPHILS % (AUTO) 6.2 % (0.0-3.0); HEMATOCRIT 41.7 % (42.0-52.0); HEMOGLOBIN 13.4 G/DL (14.2-18.0); LYMPHOCYTES % (AUTO) 21.4 % (20.0-45.0); MEAN CORPUSCULAR VOLUME 92 FL (80-99); MONOCYTES % (AUTO) 9.6 % (1.0-10.0); NEUTROPHILS % (AUTO) 61.6 % (45.0-75.0); PLATELET COUNT 212 K/UL (150-450); RED BLOOD COUNT 4.52 M/UL (4.70-6.10); RED CELL DISTRIBUTION WIDTH 14.2 % (11.6-14.8); WHITE BLOOD COUNT 5.5 K/UL (4.8-10.8)
[2018-08-13 07:45] LABS: ALANINE AMINOTRANSFERASE 17 U/L (12-78); ALBUMIN 3.3 G/DL (3.4-5.0); ALBUMIN/GLOBULIN RATIO 0.8 (1.0-2.7); ALKALINE PHOSPHATASE 172 U/L (46-116); ANION GAP 9 mmol/L (5-15); ASPARTATE AMINO TRANSFERASE 19 U/L (15-37); BLOOD UREA NITROGEN 11 mg/dL (7-18); CARBON DIOXIDE 26 MMOL/L (21-32); CHLORIDE 107 MMOL/L (98-107); CREATININE 0.9 MG/DL (0.55-1.30); POTASSIUM 4.1 MMOL/L (3.5-5.1); SODIUM 141 MMOL/L (136-145)
[2018-08-13 07:59] VITALS: BP 168/100
[2018-08-13] MEDS: Sodium Chloride 1gm Tab GT SCH ×2 (08:14→20:29)
[2018-08-13] MEDS: Tums 500mg GT SCH (08:14)
[2018-08-13] MEDS: Lisinopril 20mg tab ORAL SCH ×2 (08:14→17:09)
[2018-08-13] MEDS: Docusate 100mg/10ml Liq NG SCH (08:14)
[2018-08-13] MEDS: Miralax 17gm pkt GT SCH (08:15)
[2018-08-13] MEDS: Zinc Oxide Oint 2oz TOPIC SCH (08:30)
[2018-08-13] MEDS: Vancomycin 750mg/D5W 275ml IVPB SCH ×4 (08:30→20:47)
--- NOTE | 2018-08-13 09:40 | NUR ---
NURSE NOTES: pt asleep arousable, no distress. no sob. call light within reach. will monitor. bed in lowest position, locked.
--- NOTE | 2018-08-13 09:41 | NUR ---
NURSE NOTES: pt awake alert, no distress. no sob. call light within reach. will monitor. bed in lowest position, locked. gt site with redness to surrounding site and still with leakage , pending gt replacement by Josué [employer].
[2018-08-13] MEDS ORDERED: Gastrograffin 30ml ORAL ONE (10:30)
--- NOTE | 2018-08-13 10:37 | General Progress Note ---
Assessment/Plan Assessment/Plan G-tube cellulitis malfunctioning G-tube history of seizure, history of intracranial hemorrhage with right hemiparesis, expressive aphasia hypertension, poor control coronary artery disease Abx adjusted per ID GI consult, replace GT today cont IVF, hold feeds cont BP rx Subjective ROS Limited/Unobtainable: Yes Allergies: Coded Allergies: NO KNOWN ALLERGIES (Unverified Allergy, Unknown, 03/02/15) Objective Last 24 Hour Vital Signs Date Time Temp Pulse Resp B/P (MAP) Pulse Ox O2 Delivery O2 Flow Rate FiO2 08/13/18 09:27 Room Air 08/13/18 08:14 168/100 08/13/18 07:59 98.4 74 20 168/100 (122) 08/13/18 07:12 80 20 Room Air 21 08/13/18 06:26 90 159/90 08/13/18 04:47 98.4 89 20 159/90 (113) 08/13/18 00:00 97.9 72 18 153/88 (109) 08/12/18 22:23 89 145/100 08/12/18 21:51 Room Air 08/12/18 21:44 78 20 Room Air 21 08/12/18 20:00 98.4 78 18 152/100 (117) 08/12/18 17:39 129/74 08/12/18 16:00 98.4 83 18 144/82 (102) 08/12/18 13:01 79 140/88 08/12/18 12:00 98.5 79 18 140/88 (105) Intake and Output 08/12/18 08/13/18 19:00 07:00 Intake Total 741.333 ml 375 ml Output Total 1100 ml 680 ml Balance -358.667 ml -305 ml IV Total 741.333 ml 375 ml Output Urine Total 1100 ml 680 ml Laboratory Tests 08/12/18 20:15: Vancomycin Level Trough 12.8H 08/13/18 05:45: White Blood Count 5.5, Red Blood Count 4.52L, Hemoglobin 13.4L, Hematocrit 41.7L , Mean Corpuscular Volume 92, Mean Corpuscular Hemoglobin 29.8, Mean Corpuscular Hemoglobin Concent 32.3, Red Cell Distribution Width 14.2, Platelet Count 212, Mean Platelet Volume 6.9, Neutrophils (%) (Auto) 61.6, Lymphocytes (% ) (Auto) 21.4, Monocytes (%) (Auto) 9.6, Eosinophils (%) (Auto) 6.2H, Basophils (%) (Auto) 1.2, Sodium Level 141, Potassium Level 4.1, Chloride Level 107, Carbon Dioxide Level 26, Anion Gap 9, Blood Urea Nitrogen 11, Creatinine 0.9, Estimat Glomerular Filtration Rate > 60, Glucose Level 114H, Calcium Level 9.0, Total Bilirubin 1.0, Aspartate Amino Transf (AST/SGOT) 19, Alanine Aminotransferase (ALT/SGPT) 17, Alkaline Phosphatase 172H, Total Protein 7.5, Albumin 3.3L, Globulin 4.2, Albumin/Globulin Ratio 0.8L Height (Feet): 5 Height (Inches): 4.00 Weight (Pounds): 138 General Appearance: alert Cardiovascular: normal rate Respiratory/Chest: lungs clear Abdomen: other - GT cellulitis Jose J Oquendo MD Aug 13, 2018 10:36
[2018-08-13 12:00] VITALS: BP 166/90
--- NOTE | 2018-08-13 12:32 | NUR ---
RADIOLOGY DEPT ABDOMEN X-RAY WITH GASTROGRAFFIN FOR T-TUBE PLMT COMPLETED.-P.DYE
--- NOTE | 2018-08-13 12:43 | Diagnostic Imaging Report ---
Indication: Post gastrostomy Technique: Supine view of the abdomen after injection of water-soluble contrast into gastrostomy Comparison: 05/31/2018 Findings: Contrast opacifies the stomach. No contrast extravasation is demonstrated. The bowel gas pattern is unremarkable. No CVA change Impression: Satisfactory position of gastrostomy tube
--- NOTE | 2018-08-13 13:23 | GI Progress Note ---
Assessment/Plan Problems: (1) G-tube replacement (2) Malfunction of gastrostomy tube ICD Codes: K94.23 - Gastrostomy malfunction SNOMED: 271521145 (3) Abdominal wall cellulitis ICD Codes: L03.311 - Cellulitis of abdominal wall SNOMED: 03468491 (4) Cellulitis ICD Codes: L03.90 - Cellulitis SNOMED: 844916367 (5) Abdominal distension ICD Codes: R14.0 - Abdominal distension (gaseous) SNOMED: 33607927 (6) PEG (percutaneous endoscopic gastrostomy) adjustment/replacement/removal ICD Codes: Z43.1 - Encounter for attention to gastrostomy SNOMED: 934811600, 153816851 Status: unchanged Status Narrative Discussed with Dr. Parra. Assessment/Plan Gtube changed at bedside (24 portuguese), confirmed by KUB start GTFs per RD Obtain wound culture Antibiotics per infectious disease zinc oxide daily around GT site daily GT site care 3 times daily and as needed PPI follow labs The patient was seen and examined at bedside and all new and available data was reviewed in the patients chart. I agree with the above findings, impression and plan. (Patient seen earlier today. Signature stamp does not reflect patient encounter time.). - Homar Parra MD Subjective Gastrointestinal/Abdominal: Reports: no symptoms Subjective limited Objective Last 24 Hour Vital Signs Date Time Temp Pulse Resp B/P (MAP) Pulse Ox O2 Delivery O2 Flow Rate FiO2 08/13/18 12:14 70 150/90 08/13/18 12:00 98.4 95 20 166/90 (115) 08/13/18 09:27 Room Air 08/13/18 08:14 168/100 08/13/18 07:59 98.4 74 20 168/100 (122) 08/13/18 07:12 80 20 Room Air 21 08/13/18 06:26 90 159/90 08/13/18 04:47 98.4 89 20 159/90 (113) 08/13/18 00:00 97.9 72 18 153/88 (109) 08/12/18 22:23 89 145/100 08/12/18 21:51 Room Air 08/12/18 21:44 78 20 Room Air 21 08/12/18 20:00 98.4 78 18 152/100 (117) 08/12/18 17:39 129/74 08/12/18 16:00 98.4 83 18 144/82 (102) Intake and Output 08/12/18 08/13/18 19:00 07:00 Intake Total 741.333 ml 375 ml Output Total 1100 ml 680 ml Balance -358.667 ml -305 ml IV Total 741.333 ml 375 ml Output Urine Total 1100 ml 680 ml Laboratory Tests Test 08/12/18 20:15 08/13/18 05:45 Vancomycin Level Trough 12.8 ug/mL (5.0-12.0) H White Blood Count 5.5 K/UL (4.8-10.8) Red Blood Count 4.52 M/UL (4.70-6.10) L Hemoglobin 13.4 G/DL (14.2-18.0) L Hematocrit 41.7 % (42.0-52.0) L Mean Corpuscular Volume 92 FL (80-99) Mean Corpuscular Hemoglobin 29.8 PG (27.0-31.0) Mean Corpuscular Hemoglobin Concent 32.3 G/DL (32.0-36.0) Red Cell Distribution Width 14.2 % (11.6-14.8) Platelet Count 212 K/UL (150-450) Mean Platelet Volume 6.9 FL (6.5-10.1) Neutrophils (%) (Auto) 61.6 % (45.0-75.0) Lymphocytes (%) (Auto) 21.4 % (20.0-45.0) Monocytes (%) (Auto) 9.6 % (1.0-10.0) Eosinophils (%) (Auto) 6.2 % (0.0-3.0) H Basophils (%) (Auto) 1.2 % (0.0-2.0) Sodium Level 141 MMOL/L (136-145) Potassium Level 4.1 MMOL/L (3.5-5.1) Chloride Level 107 MMOL/L (98-107) Carbon Dioxide Level 26 MMOL/L (21-32) Anion Gap 9 mmol/L (5-15) Blood Urea Nitrogen 11 mg/dL (7-18) Creatinine 0.9 MG/DL (0.55-1.30) Estimat Glomerular Filtration Rate > 60 mL/min (>60) Glucose Level 114 MG/DL (74-106) H Calcium Level 9.0 MG/DL (8.5-10.1) Total Bilirubin 1.0 MG/DL (0.2-1.0) Aspartate Amino Transf (AST/SGOT) 19 U/L (15-37) Alanine Aminotransferase (ALT/SGPT) 17 U/L (12-78) Alkaline Phosphatase 172 U/L (46-116) H Total Protein 7.5 G/DL (6.4-8.2) Albumin 3.3 G/DL (3.4-5.0) L Globulin 4.2 g/dL Albumin/Globulin Ratio 0.8 (1.0-2.7) L Height (Feet): 5 Height (Inches): 4.00 Weight (Pounds): 138 General Appearance: WD/WN, no apparent distress, alert Cardiovascular: normal rate Respiratory/Chest: normal breath sounds, no respiratory distress Abdominal Exam: normal bowel sounds, non tender, soft, GT site - erythema Extremities: normal range of motion, non-tender Raudel Joyce NP Aug 13, 2018 13:23
[2018-08-13] MEDS: D5NS 1,000 ML IV SCH (13:45)
--- NOTE | 2018-08-13 14:22 | NUR ---
RD ASSESSMENT & RECOMMENDATIONS SEE CARE ACTIVITY FOR COMPLETE ASSESSMENT DAILY ESTIMATED NEEDS: Needs based on cardiac, wound 62.7kg 25-35 kcals/kg 0585-0107 total kcals 1.25-1.5 g protein/kg 78-94 g total protein 25-30 mL/kg 4327-3641 total fluid mLs NUTRITION DIAGNOSIS: 1) Swallowing difficulty r/t dysphagia, h/o CVA as evidenced by pt is PEG dep for all nutritional needs. 2) Increased protein needs r/t wound healing as evidenced by R halux pressure injury ENTERAL NUTRITION RECOMMENDATIONS: Jevity 1.2 @ 65ml/hr x 22hrs + Prosource qdaily to provide 1430ml, 1716kcal, 79g + 11g prot, 1154ml free H2O - As medically able, rec to start Jevity 1.2 @ 25ml/hr for 4-6 hours, advance by 10ml/hr every 4-6 hours as tolerated to goal rate of 65ml/hr x22hrs -HOB over 30 degrees, flush per MD ADDITIONAL RECOMMENDATIONS: 1) Maintain calibrated bed scale wts 2) Add PROSOURCE 1 pack daily to better meet est prot needs 3) Monitor BG / need for carb control formula 4) Wound care: Add ALIS BID + Vit C 250mg daily 5) Monitor lytes daily on TF/ replete as needed
[2018-08-13 16:00] VITALS: BP 151/117
--- NOTE | 2018-08-13 19:04 | NUR ---
HAND-OFF: Report given to KIESHA CHOPRA.
--- NOTE | 2018-08-13 19:20 | NUR ---
NURSE NOTES: Received patient in bed, non verbal, responsive to verbal and tactile stimuli, no acute distress noted, call light is within reach, bed is in low position, alarm is on and be dis locked. Will continue to monitor for safety and comfort.
[2018-08-13 20:00] VITALS: BP 150/96
[2018-08-13] MEDS: Tamsulosin 0.4mg cap ORAL SCH (20:28)
[2018-08-13] MEDS: Sennosides 8.6mg tab GT SCH (20:29)
[2018-08-13] MEDS ORDERED: D5NS 1000ml IV ONE (22:24)
[2018-08-14] VITALS (7 sets, daily range): BP systolic 125–160; BP diastolic 78–115
[2018-08-14] MEDS: D5NS 1,000 ML IV SCH ×3 (03:56→21:31)
--- NOTE | 2018-08-14 07:15 | NUR ---
HAND-OFF: Report given to Fuentes CHOPRA.
[2018-08-14] MEDS: Tums 500mg GT SCH (09:58)
[2018-08-14] MEDS: Miralax 17gm pkt GT SCH (09:58)
[2018-08-14] MEDS: Docusate 100mg/10ml Liq NG SCH (09:59)
[2018-08-14] MEDS: Lisinopril 20mg tab ORAL SCH ×2 (09:59→17:49)
[2018-08-14] MEDS: Sodium Chloride 1gm Tab GT SCH ×2 (09:59→21:13)
[2018-08-14] MEDS: Zinc Oxide Oint 2oz TOPIC SCH (10:13)
[2018-08-14] MEDS: Vancomycin 750mg/D5W 275ml IVPB SCH ×2 (10:13)
--- NOTE | 2018-08-14 10:36 | NUR ---
NURSE NOTES: Hold feeding per PEYMAN quinn due to ab ray and distended abdomen.
--- NOTE | 2018-08-14 10:47 | GI Progress Note ---
Assessment/Plan Problems: (1) G-tube replacement (2) Malfunction of gastrostomy tube ICD Codes: K94.23 - Gastrostomy malfunction SNOMED: 402415971 (3) Abdominal wall cellulitis ICD Codes: L03.311 - Cellulitis of abdominal wall SNOMED: 25094213 (4) Cellulitis ICD Codes: L03.90 - Cellulitis SNOMED: 892683184 (5) Abdominal distension ICD Codes: R14.0 - Abdominal distension (gaseous) SNOMED: 95407043 (6) PEG (percutaneous endoscopic gastrostomy) adjustment/replacement/removal ICD Codes: Z43.1 - Encounter for attention to gastrostomy SNOMED: 090380918, 545767194 Status: unchanged Status Narrative Discussed with Dr. Parra. Assessment/Plan new onset abdominal distention, KUB ordered hold GTFs, reported bleeding at site Gtube changed at bedside (24 spanish), confirmed by KUB Obtain wound culture Antibiotics per infectious disease zinc oxide daily around GT site daily GT site care 3 times daily and as needed PPI follow labs The patient was seen and examined at bedside and all new and available data was reviewed in the patients chart. I agree with the above findings, impression and plan. (Patient seen earlier today. Signature stamp does not reflect patient encounter time.). - Homar Parra MD Subjective Subjective limited Objective Last 24 Hour Vital Signs Date Time Temp Pulse Resp B/P (MAP) Pulse Ox O2 Delivery O2 Flow Rate FiO2 08/14/18 09:59 81 160/115 08/14/18 09:59 160/115 08/14/18 08:45 80 20 Room Air 21 08/14/18 08:00 98.1 81 17 160/115 (130) 96 08/14/18 06:19 90 145/85 08/14/18 04:00 97.5 63 17 152/96 (114) 08/14/18 01:25 97.9 81 18 155/98 (117) 08/14/18 00:00 97.9 81 18 155/98 (117) 08/13/18 22:24 89 145/95 08/13/18 21:59 82 20 Room Air 21 08/13/18 21:40 Room Air 08/13/18 20:00 97.7 82 18 150/96 (114) 08/13/18 17:09 151/117 08/13/18 16:00 98.1 89 20 151/117 (128) 08/13/18 14:21 70 150/90 08/13/18 12:14 70 150/90 08/13/18 12:00 98.4 95 20 166/90 (115) Intake and Output 08/13/18 08/14/18 19:00 07:00 Intake Total 1476.666 ml 1285 ml Output Total 600 ml Balance 876.666 ml 1285 ml Free Water 200 ml 100 ml IV Total 1091.666 ml 600 ml Tube Feeding 185 ml 585 ml Output Urine Total 600 ml # Bowel Movements 1 Height (Feet): 5 Height (Inches): 4.00 Weight (Pounds): 138 General Appearance: WD/WN, no apparent distress, alert Cardiovascular: normal rate Respiratory/Chest: normal breath sounds, no respiratory distress Abdominal Exam: normal bowel sounds, non tender, soft, GT site - Erythema improving Extremities: non-tender Raudel Joyce BAKERY MANAGER Aug 14, 2018 10:47
--- NOTE | 2018-08-14 12:20 | Diagnostic Imaging Report ---
Indication: Abdominal pain Comparison: 08/13/2018 Single view of the abdomen obtained Findings: Bowel gas pattern is nonspecific. There is contrast material within portions of the colon. Gastrostomy tube is present. There is diffuse ankylosis of the visualized spine. There is also apparent fusion of the sacroiliac joints. IMPRESSION: Nonspecific bowel gas
--- NOTE | 2018-08-14 13:10 | NUR ---
NURSE NOTES: Resume Gtube feeding, turn Q2 hours.
--- NOTE | 2018-08-14 13:10 | NUR ---
RADIOLOGY DEPT ABDOMEN X-RAY DONE. -P.DYE
[2018-08-14] MEDS ORDERED: Simethicone 80mg tab GT PRN (14:00)
[2018-08-14] MEDS: Simethicone 80mg tab GT PRN (14:35)
--- NOTE | 2018-08-14 17:06 | Infectious Diseases Prog Note ---
Assessment/Plan Assessment/Plan ASSESSMENT AND PLAN: 1. abdominal wall cellulitis, gram neg g-tube infection - vancomycin and cefepime - check g-tube culture/wound culture - monitor labs - g-tube changed - continue treatment per Dr. Oquendo and GI 2. The patient has dysphagia and G-tube. 3. Hypertension. Blood pressure treatment per Dr. Oquendo. 4. CVA. 5. Right hemiparesis. 6. Cerebral hemorrhage. 7. Expressive aphasia. 8. Seizure disorder. 9. COPD. 10. Coronary artery disease. 11. Skin care protocol. 12. No known drug allergies. 13. Social history negative. 14. Family history noncontributory. 15. MAR was noted. 16. Case discussed with RN. 17. Continue treatment per primary consultants. 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, vre colonization Subjective Constitutional: Reports: fatigue, other - alert, non-verbal ; Denies: fever HEENT: Denies: congestion Respiratory: Denies: shortness of breath Cardiovascular: Denies: chest pain Gastrointestinal/Abdominal: Denies: nausea, diarrhea Genitourinary: Reports: other - + Quiles Neurologic: Denies: headache Psychiatric: Denies: depression Skin: Denies: rash Musculoskeletal: Denies: pain Allergies: Coded Allergies: NO KNOWN ALLERGIES (Unverified Allergy, Unknown, 03/02/15) Objective Vital Signs Last 24 Hour Vital Signs Date Time Temp Pulse Resp B/P (MAP) Pulse Ox O2 Delivery O2 Flow Rate FiO2 08/14/18 14:35 110 125/78 08/14/18 12:00 98.8 110 20 125/78 (94) 94 08/14/18 11:14 Room Air 08/14/18 09:59 81 160/115 08/14/18 09:59 160/115 08/14/18 08:45 80 20 Room Air 21 08/14/18 08:00 98.1 81 17 160/115 (130) 96 08/14/18 06:19 90 145/85 08/14/18 04:00 97.5 63 17 152/96 (114) 08/14/18 01:25 97.9 81 18 155/98 (117) 08/14/18 00:00 97.9 81 18 155/98 (117) 08/13/18 22:24 89 145/95 08/13/18 21:59 82 20 Room Air 21 08/13/18 21:40 Room Air 08/13/18 20:00 97.7 82 18 150/96 (114) 08/13/18 17:09 151/117 Height (Feet): 5 Height (Inches): 4.00 Weight (Pounds): 138 General Appearance: no acute distress HEENT: normocephalic, atraumatic, anicteric, mucous membranes moist, EOMI, pharynx normal, supple, no JVD Respiratory/Chest: crackles/rales, rhonchi - bilaterally Cardiovascular: normal rate, regular rhythm, no gallop/murmur, no JVD Abdomen: normal bowel sounds, distended, other - abdominal wall redness/ cellulitis decreased, g-tube site with drainage but less Genitourinary: other - + quiles - urine slt cloudy Extremities: no cyanosis Skin: no rash, other - wounds - covered Neurologic/Psychiatric: filling winder II-XII grossly normal, alert, responsive Lymphatic: no neck adenopathy Musculoskeletal: no effusion Objective Comparison: 08/13/2018 KUB - Single view of the abdomen obtained Findings: Bowel gas pattern is nonspecific. There is contrast material within portions of the colon. Gastrostomy tube is present. There is diffuse ankylosis of the visualized spine. There is also apparent fusion of the sacroiliac joints. IMPRESSION: Nonspecific bowel gas Microbiology Date/Time Source Procedure Growth Status 08/11/18 13:00 Blood Blood Culture - Preliminary NO GROWTH AFTER 48 HOURS Resulted 08/12/18 21:00 Wound Gram Stain - Final Resulted 08/12/18 21:00 Wound Culture - Preliminary Gram Negative Bacillus 1 Resulted 08/11/18 15:30 Nasal Nares MRSA Culture - Final Staphylococcus Aureus - Mrsa Complete 08/11/18 15:30 Rectum VRE Culture - Final Enterococcus Faecalis - Vre Complete 08/11/18 15:30 Rectum - Final NO CARBAPENEM-RESISTANT ENTEROBACTERI... Complete Microbiology Date/Time Source Procedure Growth Status 08/12/18 21:00 Wound Gram Stain - Final Resulted 08/12/18 21:00 Wound Culture - Preliminary Gram Negative Bacillus 1 Resulted Labs Test 08/12/18 06:20 08/12/18 20:15 08/13/18 05:45 White Blood Count 5.7 K/UL (4.8-10.8) 5.5 K/UL (4.8-10.8) Red Blood Count 4.92 M/UL (4.70-6.10) 4.52 M/UL (4.70-6.10) Hemoglobin 14.6 G/DL (14.2-18.0) 13.4 G/DL (14.2-18.0) Hematocrit 45.1 % (42.0-52.0) 41.7 % (42.0-52.0) Mean Corpuscular Volume 92 FL (80-99) 92 FL (80-99) Mean Corpuscular Hemoglobin 29.6 PG (27.0-31.0) 29.8 PG (27.0-31.0) Mean Corpuscular Hemoglobin Concent 32.3 G/DL (32.0-36.0) 32.3 G/DL (32.0-36.0) Red Cell Distribution Width 14.3 % (11.6-14.8) 14.2 % (11.6-14.8) Platelet Count 207 K/UL (150-450) 212 K/UL (150-450) Mean Platelet Volume 6.9 FL (6.5-10.1) 6.9 FL (6.5-10.1) Neutrophils (%) (Auto) 67.7 % (45.0-75.0) 61.6 % (45.0-75.0) Lymphocytes (%) (Auto) 18.1 % (20.0-45.0) 21.4 % (20.0-45.0) Monocytes (%) (Auto) 10.9 % (1.0-10.0) 9.6 % (1.0-10.0) Eosinophils (%) (Auto) 2.1 % (0.0-3.0) 6.2 % (0.0-3.0) Basophils (%) (Auto) 1.3 % (0.0-2.0) 1.2 % (0.0-2.0) Sodium Level 141 MMOL/L (136-145) 141 MMOL/L (136-145) Potassium Level 3.9 MMOL/L (3.5-5.1) 4.1 MMOL/L (3.5-5.1) Chloride Level 107 MMOL/L (98-107) 107 MMOL/L (98-107) Carbon Dioxide Level 26 MMOL/L (21-32) 26 MMOL/L (21-32) Anion Gap 8 mmol/L (5-15) 9 mmol/L (5-15) Blood Urea Nitrogen 24 mg/dL (7-18) 11 mg/dL (7-18) Creatinine 0.9 MG/DL (0.55-1.30) 0.9 MG/DL (0.55-1.30) Estimat Glomerular Filtration Rate > 60 mL/min (>60) > 60 mL/min (>60) Glucose Level 116 MG/DL (74-106) 114 MG/DL (74-106) Calcium Level 9.1 MG/DL (8.5-10.1) 9.0 MG/DL (8.5-10.1) Magnesium Level 2.4 MG/DL (1.8-2.4) Vancomycin Level Trough 12.8 ug/mL (5.0-12.0) Total Bilirubin 1.0 MG/DL (0.2-1.0) Aspartate Amino Transf (AST/SGOT) 19 U/L (15-37) Alanine Aminotransferase (ALT/SGPT) 17 U/L (12-78) Alkaline Phosphatase 172 U/L (46-116) Total Protein 7.5 G/DL (6.4-8.2) Albumin 3.3 G/DL (3.4-5.0) Globulin 4.2 g/dL Albumin/Globulin Ratio 0.8 (1.0-2.7) Current Medications Medications (Trade) Dose Ordered Sig/Kehinde Route PRN Reason Start Time Stop Time Status Last Admin Dose Admin Acetaminophen/ Hydrocodone Bitart ([place] 5/325) 1 tab Q4H PRN GT Severe Pain (Pain Scale 7-10) 08/11/18 18:00 08/18/18 17:59 Albuterol Sulfate (Proventil) 2.5 mg Q4H PRN HHN Shortness of Breath 08/11/18 18:00 08/16/18 17:59 Amlodipine Besylate (Norvasc) 10 mg DAILY GT 08/13/18 11:00 09/12/18 10:59 08/14/18 09:59 Calcium Carbonate (Tums) 500 mg DAILY GT 08/12/18 09:00 09/11/18 08:59 08/14/18 09:58 Cefepime HCl 1 gm/ Dextrose 50 ml @ 100 mls/hr Q12HR@0600,1800 IVPB 08/12/18 18:30 08/19/18 18:29 08/14/18 06:19 Clonidine HCl (Catapres tab) 0.2 mg Q4H PRN GT For High Blood Pressure 08/11/18 18:00 09/10/18 17:59 Dextrose/Sodium Chloride 1,000 ml @ 75 mls/hr [id number] IV 08/11/18 21:45 09/10/18 21:44 08/14/18 03:56 Docusate Sodium (Colace) 100 mg DAILY NG 08/12/18 09:00 09/11/18 08:59 08/14/18 09:59 Finasteride (Proscar) 5 mg DAILY ORAL 08/12/18 09:00 09/11/18 08:59 08/14/18 09:59 Lansoprazole (Prevacid) 30 mg DAILY GT 08/12/18 09:00 09/11/18 08:59 08/14/18 09:58 Lisinopril (Prinivil) 20 mg BID ORAL 08/12/18 09:00 09/11/18 08:59 08/14/18 09:59 Metoprolol Tartrate (Lopressor) 100 mg EVERY 8 HOURS GT 08/11/18 22:00 09/10/18 21:59 08/14/18 14:35 Ondansetron HCl (Zofran) 4 mg Q6H PRN GT Nausea & Vomiting 08/11/18 18:00 09/10/18 17:59 Polyethylene Glycol (Miralax) 17 gm DAILY GT 08/12/18 09:00 09/11/18 08:59 08/14/18 09:58 Potassium Chloride (K-Dur) 20 meq Q12HR GT 08/11/18 21:00 09/10/18 20:59 08/14/18 09:58 Sennosides (Senokot) 8.6 mg BEDTIME GT 08/11/18 21:00 09/10/18 20:59 08/13/18 20:29 Sennosides (Senokot) 8.6 mg BEDTIME PRN GT Constipation 08/11/18 18:00 09/10/18 17:59 Simethicone (Mylicon) 80 mg Q8H PRN GT Abdominal cramps 08/14/18 14:30 09/13/18 14:29 08/14/18 14:35 Sodium Chloride (NaCl) 1 gm Q12HR GT 08/11/18 21:00 09/10/18 20:59 08/14/18 09:59 Tamsulosin HCl (Flomax) 0.4 mg BEDTIME ORAL 08/11/18 21:00 09/10/18 20:59 08/13/18 20:28 Vancomycin HCl (Vanco rx to dose) 1 ea DAILY PRN MISC Per rx protocol 08/11/18 19:15 09/10/18 19:14 Vancomycin HCl 750 mg/Dextrose 275 ml @ 183.333 mls/hr Q12H IVPB 08/11/18 21:00 08/16/18 20:59 08/14/18 10:13 Zinc Oxide (Zinc Oxide) 1 applic DAILY TOPIC 08/13/18 09:00 09/12/18 08:59 08/14/18 10:13 Rodriguez Hawthorne MD Aug 14, 2018 17:06
--- NOTE | 2018-08-14 18:10 | General Progress Note ---
Assessment/Plan Assessment/Plan G-tube cellulitis malfunctioning G-tube history of seizure, history of intracranial hemorrhage with right hemiparesis, expressive aphasia hypertension, poor control coronary artery disease bleeding at GT site Abx per ID GI replaced GT cont IVF, hold feeds cont BP rx Subjective ROS Limited/Unobtainable: Yes Allergies: Coded Allergies: NO KNOWN ALLERGIES (Unverified Allergy, Unknown, 03/02/15) Objective Last 24 Hour Vital Signs Date Time Temp Pulse Resp B/P (MAP) Pulse Ox O2 Delivery O2 Flow Rate FiO2 08/14/18 17:49 139/91 08/14/18 16:00 98.6 80 19 139/91 (107) 94 08/14/18 14:35 110 125/78 08/14/18 12:00 98.8 110 20 125/78 (94) 94 08/14/18 11:14 Room Air 08/14/18 09:59 81 160/115 08/14/18 09:59 160/115 08/14/18 08:45 80 20 Room Air 21 08/14/18 08:00 98.1 81 17 160/115 (130) 96 08/14/18 06:19 90 145/85 08/14/18 04:00 97.5 63 17 152/96 (114) 08/14/18 01:25 97.9 81 18 155/98 (117) 08/14/18 00:00 97.9 81 18 155/98 (117) 08/13/18 22:24 89 145/95 08/13/18 21:59 82 20 Room Air 21 08/13/18 21:40 Room Air 08/13/18 20:00 97.7 82 18 150/96 (114) Intake and Output 08/13/18 08/14/18 18:59 06:59 Intake Total 1311.666 ml 1450 ml Output Total 600 ml Balance 711.666 ml 1450 ml Free Water 100 ml 200 ml IV Total 1091.666 ml 600 ml Tube Feeding 120 ml 650 ml Output Urine Total 600 ml # Bowel Movements 1 Height (Feet): 5 Height (Inches): 4.00 Weight (Pounds): 138 General Appearance: alert Neck: non-tender Cardiovascular: normal rate Respiratory/Chest: lungs clear Abdomen: non tender, no organomegaly, distended, other - GT site cellulitis Jose J Oquendo MD Aug 14, 2018 18:10
--- NOTE | 2018-08-14 18:51 | NUR ---
CASE MANAGEMENT: REVIEW SI: CELLULITIS ABD WALL T 98.8 HR 110 RR 20 BP 160/115 SAT 94% ROOM AIR IS: VANCO IV Q12HR NORVASC GT QD CEFEPIME IV Q12HR LOPRESSOR GT Q12HR D5 NS IVF @ 75ML/HR MED/SURG STATUS' DCP: PATIENT IS FROM [facility]
--- NOTE | 2018-08-14 19:30 | NUR ---
HAND-OFF: Report given to NAV Perry.
--- NOTE | 2018-08-14 20:05 | NUR ---
NURSE NOTES: Received patient asleep,comfortable,tolerating his g-tube feeding well.Kept clean and dry.
[2018-08-14] MEDS: Sennosides 8.6mg tab GT SCH (21:12)
[2018-08-14] MEDS: Vancomycin 750 MG in D5W 275 ML IVPB SCH (21:12)
[2018-08-14] MEDS: Tamsulosin 0.4mg cap ORAL SCH (21:13)
--- NOTE | 2018-08-14 23:00 | NUR ---
NURSE NOTES: Dressing changed on his right foot(hallux). Dressing on his G-tube site is dry and intact.
[2018-08-15] VITALS: BP 142/95
[2018-08-15 04:00] VITALS: BP 136/90
--- NOTE | 2018-08-15 07:17 | NUR ---
HAND-OFF: Report given to Fuentes Jiang RN.
[2018-08-15 07:27] LABS: BASOPHILS % (AUTO) 1.6 % (0.0-2.0); EOSINOPHILS % (AUTO) 10.8 % (0.0-3.0); HEMATOCRIT 40.1 % (42.0-52.0); HEMOGLOBIN 13.3 G/DL (14.2-18.0); LYMPHOCYTES % (AUTO) 20.1 % (20.0-45.0); MEAN CORPUSCULAR VOLUME 91 FL (80-99); MONOCYTES % (AUTO) 9.9 % (1.0-10.0); NEUTROPHILS % (AUTO) 57.6 % (45.0-75.0); PLATELET COUNT 211 K/UL (150-450); WHITE BLOOD COUNT 5.8 K/UL (4.8-10.8)
--- NOTE | 2018-08-15 07:45 | NUR ---
NURSE NOTES: Received patient on bed, awake. Iv site intact and patent. Gtube intact and patent. Lynn catheter present and intact, patent and draining. Bed in low and locked position, call light in reach. no signs of respiratory distress. Abdomen distended. Room board updated, will continue to monitor.
[2018-08-15 07:46] LABS: ALANINE AMINOTRANSFERASE 13 U/L (12-78); ALBUMIN 3.3 G/DL (3.4-5.0); ALBUMIN/GLOBULIN RATIO 0.8 (1.0-2.7); ALKALINE PHOSPHATASE 177 U/L (46-116); ANION GAP 9 mmol/L (5-15); ASPARTATE AMINO TRANSFERASE 18 U/L (15-37); BILIRUBIN,TOTAL 0.8 MG/DL (0.2-1.0); BLOOD UREA NITROGEN 7 mg/dL (7-18); CALCIUM 8.7 MG/DL (8.5-10.1); CARBON DIOXIDE 22 MMOL/L (21-32); CHLORIDE 105 MMOL/L (98-107); CREATININE 0.6 MG/DL (0.55-1.30); POTASSIUM 4.3 MMOL/L (3.5-5.1); SODIUM 136 MMOL/L (136-145)
[2018-08-15 08:00] VITALS: BP 149/104
[2018-08-15] MEDS: Miralax 17gm pkt GT SCH (09:09)
[2018-08-15] MEDS: Tums 500mg GT SCH (09:09)
[2018-08-15] MEDS: Sodium Chloride 1gm Tab GT SCH ×2 (09:10→20:51)
[2018-08-15] MEDS: Zinc Oxide Oint 2oz TOPIC SCH (09:11)
[2018-08-15] MEDS: Docusate 100mg/10ml Liq NG SCH (09:11)
[2018-08-15] MEDS: Lisinopril 20mg tab ORAL SCH ×2 (09:11→18:29)
[2018-08-15] MEDS: Vancomycin 750 MG in D5W 275 ML IVPB SCH ×2 (09:14→20:51)
--- NOTE | 2018-08-15 10:30 | NUR ---
NURSE NOTES: Gtube dressing changed with PEYMAN Moses.
--- NOTE | 2018-08-15 11:00 | NUR ---
NURSE NOTES: [place] [address] until 1500 hours. Line flushed.
--- NOTE | 2018-08-15 11:38 | GI Progress Note ---
Assessment/Plan Problems: (1) G-tube replacement (2) Malfunction of gastrostomy tube ICD Codes: K94.23 - Gastrostomy malfunction SNOMED: 790251332 (3) Abdominal wall cellulitis ICD Codes: L03.311 - Cellulitis of abdominal wall SNOMED: 48809247 (4) Cellulitis ICD Codes: L03.90 - Cellulitis SNOMED: 940770016 (5) Abdominal distension ICD Codes: R14.0 - Abdominal distension (gaseous) SNOMED: 51877998 (6) PEG (percutaneous endoscopic gastrostomy) adjustment/replacement/removal ICD Codes: Z43.1 - Encounter for attention to gastrostomy SNOMED: 047819465, 617462735 Status: progressing, not improved, unchanged Status Narrative Discussed with Dr. Parra Assessment/Plan Gtube changed at bedside (24 senegalese), confirmed by KUB new onset abdominal distention, KUB ordered which was negative GT site bleeding/leakage >> GT site care 3 times daily and as needed Plan for GJ tube tomorrow. - NPO @ [place]. - hold all blood thinners tonight. turn q2 hours Antibiotics per infectious disease zinc oxide daily around GT site daily PPI bowel regime follow labs The patient was seen and examined at bedside and all new and available data was reviewed in the patients chart. I agree with the above findings, impression and plan. (Patient seen earlier today. Signature stamp does not reflect patient encounter time.). - Homar Parra MD Subjective Gastrointestinal/Abdominal: Reports: no symptoms Subjective limited Objective Last 24 Hour Vital Signs Date Time Temp Pulse Resp B/P (MAP) Pulse Ox O2 Delivery O2 Flow Rate FiO2 08/15/18 09:46 89 20 Room Air 21 08/15/18 09:11 149/104 08/15/18 09:09 79 149/104 08/15/18 09:00 Room Air 08/15/18 08:00 99.0 79 19 149/104 (119) 97 08/15/18 05:27 81 136/90 08/15/18 04:00 98.0 81 20 136/90 (105) 98 08/15/18 00:00 97.5 80 18 142/95 (111) 98 08/14/18 21:13 86 139/99 08/14/18 21:00 Room Air 08/14/18 20:06 86 20 Room Air 21 08/14/18 20:00 98.5 86 18 139/99 (112) 94 08/14/18 17:49 139/91 08/14/18 16:00 98.6 80 19 139/91 (107) 94 08/14/18 14:35 110 125/78 08/14/18 12:00 98.8 110 20 125/78 (94) 94 Intake and Output 08/14/18 08/15/18 19:00 07:00 Intake Total 1605.000 ml 2055.000 ml Output Total 600 ml Balance 1005.000 ml 2055.000 ml Free Water 300 ml 200 ml IV Total 850.000 ml 1075.000 ml Tube Feeding 455 ml 780 ml Output Urine Total 600 ml # Bowel Movements 1 Laboratory Tests Test 08/15/18 05:40 White Blood Count 5.8 K/UL (4.8-10.8) Red Blood Count 4.40 M/UL (4.70-6.10) L Hemoglobin 13.3 G/DL (14.2-18.0) L Hematocrit 40.1 % (42.0-52.0) L Mean Corpuscular Volume 91 FL (80-99) Mean Corpuscular Hemoglobin 30.2 PG (27.0-31.0) Mean Corpuscular Hemoglobin Concent 33.2 G/DL (32.0-36.0) Red Cell Distribution Width 14.0 % (11.6-14.8) Platelet Count 211 K/UL (150-450) Mean Platelet Volume 7.0 FL (6.5-10.1) Neutrophils (%) (Auto) 57.6 % (45.0-75.0) Lymphocytes (%) (Auto) 20.1 % (20.0-45.0) Monocytes (%) (Auto) 9.9 % (1.0-10.0) Eosinophils (%) (Auto) 10.8 % (0.0-3.0) H Basophils (%) (Auto) 1.6 % (0.0-2.0) Sodium Level 136 MMOL/L (136-145) Potassium Level 4.3 MMOL/L (3.5-5.1) Chloride Level 105 MMOL/L (98-107) Carbon Dioxide Level 22 MMOL/L (21-32) Anion Gap 9 mmol/L (5-15) Blood Urea Nitrogen 7 mg/dL (7-18) Creatinine 0.6 MG/DL (0.55-1.30) Estimat Glomerular Filtration Rate > 60 mL/min (>60) Glucose Level 95 MG/DL (74-106) Calcium Level 8.7 MG/DL (8.5-10.1) Total Bilirubin 0.8 MG/DL (0.2-1.0) Aspartate Amino Transf (AST/SGOT) 18 U/L (15-37) Alanine Aminotransferase (ALT/SGPT) 13 U/L (12-78) Alkaline Phosphatase 177 U/L (46-116) H Total Protein 7.4 G/DL (6.4-8.2) Albumin 3.3 G/DL (3.4-5.0) L Globulin 4.1 g/dL Albumin/Globulin Ratio 0.8 (1.0-2.7) L Height (Feet): 5 Height (Inches): 4.00 Weight (Pounds): 138 General Appearance: WD/WN, no apparent distress, alert Cardiovascular: normal rate Respiratory/Chest: normal breath sounds, no respiratory distress Abdominal Exam: normal bowel sounds, non tender, soft, GT site - Erythema improved Extremities: non-tender Raudel Joyce NP Aug 15, 2018 11:38
[2018-08-15 12:00] VITALS: BP 149/99
[2018-08-15] MEDS: Simethicone 80mg tab GT PRN (14:50)
[2018-08-15] MEDS: D5NS 1,000 ML IV SCH (14:52)
--- NOTE | 2018-08-15 15:00 | NUR ---
NURSE NOTES: Restarted Gtube feeding.
--- NOTE | 2018-08-15 15:49 | NUR ---
NURSE NOTES: received telephone consent for EGD and GJttube placement over telephone from daughter Winter Martel. Myself and charge nurse Jacey witnessed and signed consent form. RONALDO Moses spoke to Winter prior to telephoen consent.
[2018-08-15 16:00] VITALS: BP 144/98
--- NOTE | 2018-08-15 16:37 | General Progress Note ---
Assessment/Plan Assessment/Plan G-tube cellulitis malfunctioning G-tube history of seizure, history of intracranial hemorrhage with right hemiparesis, expressive aphasia hypertension, poor control coronary artery disease bleeding at GT site Abx per ID GI to be changed to GJT by EGD tomorrow cont IVF, hold feeds adjust BP rx Subjective ROS Limited/Unobtainable: Yes Allergies: Coded Allergies: NO KNOWN ALLERGIES (Unverified Allergy, Unknown, 03/02/15) Objective Last 24 Hour Vital Signs Date Time Temp Pulse Resp B/P (MAP) Pulse Ox O2 Delivery O2 Flow Rate FiO2 08/15/18 16:00 97.5 82 20 144/98 (113) 96 08/15/18 14:50 94 149/99 08/15/18 12:00 99.4 94 19 149/99 (116) 97 08/15/18 11:46 88 20 99 Room Air 21 08/15/18 11:35 89 18 97 Room Air 21 08/15/18 09:46 89 20 Room Air 21 08/15/18 09:11 149/104 08/15/18 09:09 79 149/104 08/15/18 09:00 Room Air 08/15/18 08:00 99.0 79 19 149/104 (119) 97 08/15/18 05:27 81 136/90 08/15/18 04:00 98.0 81 20 136/90 (105) 98 08/15/18 00:00 97.5 80 18 142/95 (111) 98 08/14/18 21:13 86 139/99 08/14/18 21:00 Room Air 08/14/18 20:06 86 20 Room Air 21 08/14/18 20:00 98.5 86 18 139/99 (112) 94 08/14/18 17:49 139/91 Intake and Output 08/14/18 08/15/18 19:00 07:00 Intake Total 1605.000 ml 2055.000 ml Output Total 600 ml Balance 1005.000 ml 2055.000 ml Free Water 300 ml 200 ml IV Total 850.000 ml 1075.000 ml Tube Feeding 455 ml 780 ml Output Urine Total 600 ml # Bowel Movements 1 Laboratory Tests 08/15/18 05:40: White Blood Count 5.8, Red Blood Count 4.40L, Hemoglobin 13.3L, Hematocrit 40.1L , Mean Corpuscular Volume 91, Mean Corpuscular Hemoglobin 30.2, Mean Corpuscular Hemoglobin Concent 33.2, Red Cell Distribution Width 14.0, Platelet Count 211, Mean Platelet Volume 7.0, Neutrophils (%) (Auto) 57.6, Lymphocytes (% ) (Auto) 20.1, Monocytes (%) (Auto) 9.9, Eosinophils (%) (Auto) 10.8H, Basophils (%) (Auto) 1.6, Sodium Level 136, Potassium Level 4.3, Chloride Level 105, Carbon Dioxide Level 22, Anion Gap 9, Blood Urea Nitrogen 7, Creatinine 0.6 , Estimat Glomerular Filtration Rate > 60, Glucose Level 95, Calcium Level 8.7, Total Bilirubin 0.8, Aspartate Amino Transf (AST/SGOT) 18, Alanine Aminotransferase (ALT/SGPT) 13, Alkaline Phosphatase 177H, Total Protein 7.4, Albumin 3.3L, Globulin 4.1, Albumin/Globulin Ratio 0.8L Height (Feet): 5 Height (Inches): 4.00 Weight (Pounds): 138 General Appearance: no apparent distress Neck: normal alignment Cardiovascular: normal rate Respiratory/Chest: lungs clear Abdomen: non tender, distended Jose J Oqeundo MD Aug 15, 2018 16:37
[2018-08-15] MEDS: HydrALAZINE 50mg tab ORAL SCH (18:29)
--- NOTE | 2018-08-15 19:27 | NUR ---
HAND-OFF: Report given to NAV Day.
--- NOTE | 2018-08-15 19:30 | NUR ---
NURSE NOTES: Received patient in no apparent distress. Alert and awake, non verbal. IV site patent and intact. G-tube in place, running Jevity 1.2, 65cc/hr, 0cc residual noted, elevated HOB. Lynn draining well by gravity, yellow urine noted. Bed in lowest position. Call light within reach. Will continue to monitor.
[2018-08-15 20:00] VITALS: BP 130/82
[2018-08-15] MEDS: Sennosides 8.6mg tab GT SCH (20:51)
[2018-08-15] MEDS: Tamsulosin 0.4mg cap ORAL SCH (20:51)
[2018-08-16] VITALS (9 sets, daily range): BP systolic 123–155; BP diastolic 89–108
--- NOTE | 2018-08-16 07:12 | NUR ---
HAND-OFF: Report given to Chana Hoover RN.
[2018-08-16 07:31] LABS: BASOPHILS % (AUTO) 0.8 % (0.0-2.0); EOSINOPHILS % (AUTO) 5.3 % (0.0-3.0); HEMATOCRIT 45.4 % (42.0-52.0); HEMOGLOBIN 14.9 G/DL (14.2-18.0); MEAN CORPUSCULAR VOLUME 91 FL (80-99); MONOCYTES % (AUTO) 7.2 % (1.0-10.0); NEUTROPHILS % (AUTO) 64.7 % (45.0-75.0); PLATELET COUNT 261 K/UL (150-450); RED BLOOD COUNT 5.01 M/UL (4.70-6.10); RED CELL DISTRIBUTION WIDTH 14.2 % (11.6-14.8)
[2018-08-16 07:43] LABS: ANION GAP 9 mmol/L (5-15); BLOOD UREA NITROGEN 5 mg/dL (7-18); CALCIUM 9.3 MG/DL (8.5-10.1); CARBON DIOXIDE 23 MMOL/L (21-32); CHLORIDE 104 MMOL/L (98-107); CREATININE 0.7 MG/DL (0.55-1.30); POTASSIUM 4.1 MMOL/L (3.5-5.1); SODIUM 136 MMOL/L (136-145)
--- NOTE | 2018-08-16 07:51 | NUR ---
NURSE NOTES: pt in bed with no sob nor in any form of distress noted. HOB elevated for aspiration precaution. kept NPO for EGD and J tube placement. kept GT site clean and dry. Lynn draining well. will continue to monitor.
--- NOTE | 2018-08-16 08:33 | General Progress Note ---
Assessment/Plan Assessment/Plan G-tube cellulitis, improved malfunctioning G-tube history of seizure history of intracranial hemorrhage with right hemiparesis, expressive aphasia hypertension, fair control coronary artery disease Abx per ID GT to be changed to GJT by EGD tomorrow cont IVF, hold feeds cont BP rx Subjective ROS Limited/Unobtainable: Yes Allergies: Coded Allergies: NO KNOWN ALLERGIES (Unverified Allergy, Unknown, 03/02/15) Objective Last 24 Hour Vital Signs Date Time Temp Pulse Resp B/P (MAP) Pulse Ox O2 Delivery O2 Flow Rate FiO2 08/16/18 05:40 87 142/95 08/16/18 04:00 98.3 87 18 142/95 (111) 98 08/16/18 00:00 99.3 100 17 155/108 (124) 98 08/15/18 21:17 82 130/82 08/15/18 21:00 Room Air 08/15/18 20:00 97.3 82 17 130/82 (98) 98 08/15/18 19:36 76 18 Room Air 21 08/15/18 18:29 144/98 08/15/18 18:29 144/98 08/15/18 16:00 97.5 82 20 144/98 (113) 96 08/15/18 14:50 94 149/99 08/15/18 12:00 99.4 94 19 149/99 (116) 97 08/15/18 11:46 88 20 99 Room Air 21 08/15/18 11:35 89 18 97 Room Air 21 08/15/18 09:46 89 20 Room Air 21 08/15/18 09:11 149/104 08/15/18 09:09 79 149/104 08/15/18 09:00 Room Air Intake and Output 08/15/18 08/16/18 19:00 07:00 Intake Total 1525.000 ml 1491.666 ml Output Total 3000 ml Balance 1525.000 ml -1508.334 ml Free Water 160 ml 100 ml IV Total 975.000 ml 1066.666 ml Tube Feeding 390 ml 325 ml Output Urine Total 3000 ml # Bowel Movements 1 1 Laboratory Tests 08/16/18 05:40: White Blood Count 8.0, Red Blood Count 5.01, Hemoglobin 14.9, Hematocrit 45.4, Mean Corpuscular Volume 91, Mean Corpuscular Hemoglobin 29.8, Mean Corpuscular Hemoglobin Concent 32.9, Red Cell Distribution Width 14.2, Platelet Count 261, Mean Platelet Volume 7.5, Neutrophils (%) (Auto) 64.7, Lymphocytes (%) (Auto) 22.0, Monocytes (%) (Auto) 7.2, Eosinophils (%) (Auto) 5.3H, Basophils (%) (Auto ) 0.8, Prothrombin Time 10.1, Prothromb Time International Ratio 1.0, Activated Partial Thromboplast Time 32, Sodium Level 136, Potassium Level 4.1, Chloride Level 104, Carbon Dioxide Level 23, Anion Gap 9, Blood Urea Nitrogen 5L, Creatinine 0.7, Estimat Glomerular Filtration Rate > 60, Glucose Level 99, Calcium Level 9.3 Height (Feet): 5 Height (Inches): 5.00 Weight (Pounds): 138 General Appearance: alert, other - aphasic Neck: supple Cardiovascular: normal rate Respiratory/Chest: lungs clear Abdomen: non tender, soft, no organomegaly, distended, other - cellulitis better Jose J Oquendo MD Aug 16, 2018 08:33
[2018-08-16] MEDS: Miralax 17gm pkt GT SCH (08:46)
[2018-08-16] MEDS: Sodium Chloride 1gm Tab GT SCH ×2 (08:46→20:37)
[2018-08-16] MEDS: D5NS 1,000 ML IV SCH (08:46)
[2018-08-16] MEDS: Zinc Oxide Oint 2oz TOPIC SCH (08:47)
[2018-08-16] MEDS: HydrALAZINE 50mg tab ORAL SCH ×2 (08:47→17:01)
[2018-08-16] MEDS: Lisinopril 20mg tab ORAL SCH ×2 (08:47→17:02)
[2018-08-16] MEDS: Docusate 100mg/10ml Liq NG SCH (08:48)
[2018-08-16] MEDS: Tums 500mg GT SCH (08:48)
[2018-08-16] MEDS: Vancomycin 750 MG in D5W 275 ML IVPB SCH ×2 (08:49→20:38)
--- NOTE | 2018-08-16 13:12 | Anethesia Preoperative Eval ---
Anesthesia Pre-op PMH/ROS General Date of Evaluation: Aug 16, 2018 Time of Evaluation: 13:09 ASA Score: ASA 3 Mallampati Score Class I : Soft palate, uvula, fauces, pillars visible Class II: Soft palate, uvula, fauces visible Class III: Soft palate, base of uvula visible Class IV: Only hard plate visible Mallampati Classification: Class II Surgeon: Fidel Diagnosis: abdominal wall cellulitis Surgical Procedure: change G-tube fot GJ tube Anesthesia History: none Family History: no anesthesia problems Allergies: Coded Allergies: NO KNOWN ALLERGIES (Unverified Allergy, Unknown, 03/02/15) Medications: see eMAR Patient NPO?: Yes NPO Date: Aug 16, 2018 Past Medical History Cardiovascular: Reports: HTN Pulmonary: Reports: other - pneumonia; Denies: asthma, COPD, [place] Gastrointestinal/Genitourinary: Reports: other - ilieus, SBO, abdominal wall cellulitis; Denies: GERD, CRI, ESRD Neurologic/Psychiatric: Reports: CVA; Denies: dementia, depression/anxiety, TIA, other Endocrine: Denies: DM, hypothyroidism, steroids, other HEENT: Denies: cataract (L), cataract (R), glaucoma, [place] (L), [place] (R), other Hematology/Immune: Denies: anemia, DVT, bleeding disorder, other Musculoskeletal/Integumentary: Reports: other - tib-fib fracture; Denies: OA, RA, DJD, DDD, edema PMH Narrative: ABOVE PSxH Narrative: see h & p Anesthesia Pre-op Phys. Exam Physician Exam Last Vital Signs Date Time Temp Pulse Resp B/P (MAP) Pulse Ox O2 Delivery O2 Flow Rate FiO2 08/16/18 09:38 Room Air 08/16/18 08:47 144/94 08/16/18 08:47 81 08/16/18 08:28 19 21 08/16/18 08:00 97.8 98 Constitutional: NAD Neurologic: CN 2-12 intact Cardiovascular: RRR Respiratory: CTA Gastrointestinal: S/NT/ND Airway Exam Mallampati Score: Class II MO: full Neck: from TMD: >3FB ROM: full Teeth: intact Dentures: no upper, no lower Anesthesia Pre-op A/P Labs Hematology Test 08/16/18 05:40 White Blood Count 8.0 K/UL (4.8-10.8) Red Blood Count 5.01 M/UL (4.70-6.10) Hemoglobin 14.9 G/DL (14.2-18.0) Hematocrit 45.4 % (42.0-52.0) Mean Corpuscular Volume 91 FL (80-99) Mean Corpuscular Hemoglobin 29.8 PG (27.0-31.0) Mean Corpuscular Hemoglobin Concent 32.9 G/DL (32.0-36.0) Red Cell Distribution Width 14.2 % (11.6-14.8) Platelet Count 261 K/UL (150-450) Mean Platelet Volume 7.5 FL (6.5-10.1) Neutrophils (%) (Auto) 64.7 % (45.0-75.0) Lymphocytes (%) (Auto) 22.0 % (20.0-45.0) Monocytes (%) (Auto) 7.2 % (1.0-10.0) Eosinophils (%) (Auto) 5.3 % (0.0-3.0) H Basophils (%) (Auto) 0.8 % (0.0-2.0) Coagulation Test 08/16/18 05:40 Prothrombin Time 10.1 SEC (9.30-11.50) Prothromb Time International Ratio 1.0 (0.9-1.1) Activated Partial Thromboplast Time 32 SEC (23-33) Chemistry Test 08/16/18 05:40 Sodium Level 136 MMOL/L (136-145) Potassium Level 4.1 MMOL/L (3.5-5.1) Chloride Level 104 MMOL/L (98-107) Carbon Dioxide Level 23 MMOL/L (21-32) Anion Gap 9 mmol/L (5-15) Blood Urea Nitrogen 5 mg/dL (7-18) L Creatinine 0.7 MG/DL (0.55-1.30) Estimat Glomerular Filtration Rate > 60 mL/min (>60) Glucose Level 99 MG/DL (74-106) Calcium Level 9.3 MG/DL (8.5-10.1) Risk Assessment & Plan Status Change Before Surgery: Yes Pre-Antibiotics Given Within 1 Hr of Incision: No Katelyn Reilly CRNA Aug 16, 2018 13:12
--- NOTE | 2018-08-16 13:26 | Pre-Procedure Note/Attestation ---
Pre-Procedure Note/Attestation Complete Prior to Procedure Planned Procedure: not applicable Procedure Narrative: EGD and JT placement Indications for Procedure Pre-Operative Diagnosis: GT leak Attestation I attest that I discussed the nature of the procedure; its benefits; risks and complications; and alternatives (and the risks and benefits of such alternatives ), prior to the procedure, with the patient (or the patient's legal parts counter representative). I attest that, if there was a reasonable possibility of needing a blood transfusion, the patient (or the patient's legal parts counter representative) was given the [place] Department [employer] Services standardized written summary, pursuant to the [place] Blood Safety Act ([place] Health and Safety Code # 1645, as amended). I attest that I re-evaluated the patient just prior to the surgery and that there has been no change in the patient's H&P, except as documented below: Homar Parra MD Aug 16, 2018 13:26
--- NOTE | 2018-08-16 13:36 | NUR ---
RD ASSESSMENT & RECOMMENDATIONS SEE CARE ACTIVITY FOR COMPLETE ASSESSMENT DAILY ESTIMATED NEEDS: Needs based on cardiac, wound 62.7kg 25-30 kcals/kg 8658-3016 total kcals 1.25-1.5 g protein/kg 78-94 g total protein 25-30 mL/kg 9820-6094 total fluid mLs NUTRITION DIAGNOSIS: 1) Swallowing difficulty r/t dysphagia, h/o CVA as evidenced by pt is previously PEG dep, pending GJ tube placement, NPO at this time. 2) Increased protein needs r/t wound healing as evidenced by R halux pressure injury CURRENT TF:NPO ENTERAL NUTRITION RECOMMENDATIONS: Jevity 1.2 @ 60ml/hr x 24 hrs to provide 1440ml, 1728kcal, 80g prot, 1162ml free water - As medically able, rec to resume TF - Initiate Jevity 1.2 @ 20ml/hr X 6 hrs, advance 10ml q 4-6 hrs as tolerated to goal rate. - HOB over 30 degrees/ water flush per MD ADDITIONAL RECOMMENDATIONS: 1) Calibrated bed scale wt 2) Wound care: Add ALIS BID, rec wound eval 3) Monitor lytes, replete as needed . .
[2018-08-16] MEDS ORDERED: Propofol 200mg/20ml IV ONE (14:00)
[2018-08-16] MEDS ORDERED: Midazolam 2mg/2ml Inj ONE (14:00)
--- NOTE | 2018-08-16 14:15 | Anethesia Preoperative Eval ---
Anesthesia Pre-op PMH/ROS General Date of Evaluation: Aug 16, 2018 Time of Evaluation: 14:11 Anesthesiologist: Leo ASA Score: ASA 4 Mallampati Score Class I : Soft palate, uvula, fauces, pillars visible Class II: Soft palate, uvula, fauces visible Class III: Soft palate, base of uvula visible Class IV: Only hard plate visible Mallampati Classification: Class III Surgeon: Fidel Diagnosis: PEG tube malfunction Surgical Procedure: EGD G-tune to J-tube conversion Anesthesia History: none Family History: no anesthesia problems Allergies: Coded Allergies: NO KNOWN ALLERGIES (Unverified Allergy, Unknown, 03/02/15) Medications: see eMAR Patient NPO?: Yes NPO Date: Aug 16, 2018 Past Medical History Cardiovascular: Reports: HTN; Denies: CAD, DC, valve dz, arrhythmia, other Pulmonary: Reports: GUEVARA Gastrointestinal/Genitourinary: Reports: GERD, other - dysphagia Neurologic/Psychiatric: Reports: dementia, CVA; Denies: depression/anxiety, TIA, other Endocrine: Denies: DM, hypothyroidism, steroids, other HEENT: Denies: cataract (L), cataract (R), glaucoma, [place] (L[place] (R), other Hematology/Immune: Reports: anemia Musculoskeletal/Integumentary: Reports: other - contracted; Denies: OA, RA, DJD, DDD, edema Other: other - contructed PMH Narrative: as above PSxH Narrative: see H&P Anesthesia Pre-op Phys. Exam Physician Exam Last Vital Signs Date Time Temp Pulse Resp B/P (MAP) Pulse Ox O2 Delivery O2 Flow Rate FiO2 08/16/18 13:41 81 144/94 08/16/18 09:38 Room Air 08/16/18 08:28 19 21 08/16/18 08:00 97.8 98 Constitutional: NAD Neurologic: other - unable to obtainer Cardiovascular: RRR Respiratory: other Gastrointestinal: S/NT/ND Airway Exam Mallampati Score: Class III MO: limited Neck: stiff ROM: limited Teeth: missing Dentures: no upper, no lower Anesthesia Pre-op A/P Labs Hematology Test 08/16/18 05:40 White Blood Count 8.0 K/UL (4.8-10.8) Red Blood Count 5.01 M/UL (4.70-6.10) Hemoglobin 14.9 G/DL (14.2-18.0) Hematocrit 45.4 % (42.0-52.0) Mean Corpuscular Volume 91 FL (80-99) Mean Corpuscular Hemoglobin 29.8 PG (27.0-31.0) Mean Corpuscular Hemoglobin Concent 32.9 G/DL (32.0-36.0) Red Cell Distribution Width 14.2 % (11.6-14.8) Platelet Count 261 K/UL (150-450) Mean Platelet Volume 7.5 FL (6.5-10.1) Neutrophils (%) (Auto) 64.7 % (45.0-75.0) Lymphocytes (%) (Auto) 22.0 % (20.0-45.0) Monocytes (%) (Auto) 7.2 % (1.0-10.0) Eosinophils (%) (Auto) 5.3 % (0.0-3.0) H Basophils (%) (Auto) 0.8 % (0.0-2.0) Coagulation Test 08/16/18 05:40 Prothrombin Time 10.1 SEC (9.30-11.50) Prothromb Time International Ratio 1.0 (0.9-1.1) Activated Partial Thromboplast Time 32 SEC (23-33) Chemistry Test 08/16/18 05:40 Sodium Level 136 MMOL/L (136-145) Potassium Level 4.1 MMOL/L (3.5-5.1) Chloride Level 104 MMOL/L (98-107) Carbon Dioxide Level 23 MMOL/L (21-32) Anion Gap 9 mmol/L (5-15) Blood Urea Nitrogen 5 mg/dL (7-18) L Creatinine 0.7 MG/DL (0.55-1.30) Estimat Glomerular Filtration Rate > 60 mL/min (>60) Glucose Level 99 MG/DL (74-106) Calcium Level 9.3 MG/DL (8.5-10.1) Risk Assessment & Plan Assessment: ASA 4 Plan: MAC Status Change Before Surgery: Galen Melgar MD Aug 16, 2018 14:15
[2018-08-16] MEDS ORDERED: NS 500ML IVPB ONE (14:27)
--- NOTE | 2018-08-16 14:27 | NUR ---
NURSE NOTES: pt went for GI procedure picked up by transporter with stable condition.
--- NOTE | 2018-08-16 15:11 | Immediate Post-Op Evaluation ---
Immediate Post-Op Evalulation Immediate Post-Op Evalulation Procedure: EGD Attempted J-tube placement Date of Evaluation: Aug 16, 2018 Time of Evaluation: 15:10 IV Fluids: 200 Blood Products: none Estimated Blood Loss: none Urinary Output: none Blood Pressure Systolic: 148 Blood Pressure Diastolic: 94 Pulse Rate: 86 Respiratory Rate: 22 O2 Sat by Pulse Oximetry: 96 Temperature (Fahrenheit): 97.5 Pain Score (1-10): 1 Nausea: No Vomiting: No Complications none Patient Status: reacts, patent, none Galen Bailey MD Aug 16, 2018 15:11
--- NOTE | 2018-08-16 15:28 | NUR ---
NURSE NOTES: pt came back from procedure. still with old GT in placed, per GI nurse, doctor celina was unable to perform J-tube at this time. VSS. will continue to monitor
--- NOTE | 2018-08-16 15:34 | Infectious Diseases Prog Note ---
Assessment/Plan Assessment/Plan ASSESSMENT AND PLAN: 1. abdominal wall cellulitis, esbl e.coli g-tube infection, fungal wound culture likely contaminant - vancomycin meropenem x 5 days, cefepime discontinued - cellulitis clinically improved - monitor labs - g-tube changed - continue treatment per Dr. Oquendo and GI 2. The patient has dysphagia and G-tube - s/p egd 3. Hypertension. Blood pressure treatment per Dr. Oquendo. 4. CVA. 5. Right hemiparesis. 6. Cerebral hemorrhage. 7. Expressive aphasia. 8. Seizure disorder. 9. COPD. 10. Coronary artery disease. 11. Skin care protocol. 12. No known drug allergies. 13. Social history negative. 14. Family history noncontributory. 15. MAR was noted. 16. Case discussed with RN. 17. Continue treatment per primary consultants. 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, vre colonization Subjective Constitutional: Reports: fatigue, other - no fevers; Denies: fever HEENT: Denies: congestion Respiratory: Denies: shortness of breath, productive cough Cardiovascular: Denies: chest pain Gastrointestinal/Abdominal: Denies: nausea, vomiting, diarrhea Genitourinary: Reports: other - + quiles Neurologic: Denies: headache Psychiatric: Reports: other - na Skin: Denies: rash Hematologic: Denies: bleeding Musculoskeletal: Denies: pain Allergies: Coded Allergies: NO KNOWN ALLERGIES (Unverified Allergy, Unknown, 03/02/15) Objective Vital Signs Last 24 Hour Vital Signs Date Time Temp Pulse Resp B/P (MAP) Pulse Ox O2 Delivery O2 Flow Rate FiO2 08/16/18 15:11 86 22 96 08/16/18 15:10 91 15 134/89 99 Nasal Cannula 3 08/16/18 15:06 97.0 92 22 142/94 99 Nasal Cannula 3 08/16/18 13:41 81 144/94 08/16/18 12:00 97.8 85 20 144/94 (111) 98 08/16/18 09:38 Room Air 08/16/18 09:34 Room Air 08/16/18 08:47 144/94 08/16/18 08:47 81 144/94 08/16/18 08:47 144/94 08/16/18 08:28 81 19 Room Air 21 08/16/18 08:00 97.8 85 20 144/94 (111) 98 08/16/18 05:40 87 142/95 08/16/18 04:00 98.3 87 18 142/95 (111) 98 08/16/18 00:00 99.3 100 17 155/108 (124) 98 08/15/18 21:17 82 130/82 08/15/18 21:00 Room Air 08/15/18 20:00 97.3 82 17 130/82 (98) 98 08/15/18 19:36 76 18 Room Air 21 08/15/18 18:29 144/98 08/15/18 18:29 144/98 08/15/18 16:00 97.5 82 20 144/98 (113) 96 Height (Feet): 5 Height (Inches): 5.00 Weight (Pounds): 138 General Appearance: no acute distress HEENT: normocephalic, atraumatic, anicteric, mucous membranes moist, EOMI, pharynx normal, supple, no JVD Respiratory/Chest: lungs clear, normal breath sounds, no respiratory distress, no accessory muscle use Cardiovascular: normal rate, regular rhythm, no gallop/murmur, no JVD Abdomen: normal bowel sounds, soft, non tender, distended Genitourinary: other - + quiles - urine clear Extremities: no cyanosis Skin: no rash, other - abdominal wall cellulitis improved Neurologic/Psychiatric: [place] II-XII grossly normal, alert, responsive Lymphatic: no neck adenopathy Musculoskeletal: no effusion Objective Comparison: 08/13/2018 KUB - Single view of the abdomen obtained Findings: Bowel gas pattern is nonspecific. There is contrast material within portions of the colon. Gastrostomy tube is present. There is diffuse ankylosis of the visualized spine. There is also apparent fusion of the sacroiliac joints. IMPRESSION: Nonspecific bowel gas Microbiology Date/Time Source Procedure Growth Status 08/11/18 13:00 Blood Blood Culture - Preliminary NO GROWTH AFTER 4 DAYS Resulted 08/12/18 21:00 Wound Gram Stain - Final Resulted 08/12/18 21:00 Wound Culture - Preliminary Escherichia Coli Debi Albicans Resulted 08/11/18 15:30 Nasal Nares MRSA Culture - Final Staphylococcus Aureus - Mrsa Complete 08/11/18 15:30 Rectum VRE Culture - Final Enterococcus Faecalis - Vre Complete 08/11/18 15:30 Rectum - Final NO CARBAPENEM-RESISTANT ENTEROBACTERI... Complete Laboratory Tests Test 08/16/18 05:40 White Blood Count 8.0 K/UL (4.8-10.8) Red Blood Count 5.01 M/UL (4.70-6.10) Hemoglobin 14.9 G/DL (14.2-18.0) Hematocrit 45.4 % (42.0-52.0) Mean Corpuscular Volume 91 FL (80-99) Mean Corpuscular Hemoglobin 29.8 PG (27.0-31.0) Mean Corpuscular Hemoglobin Concent 32.9 G/DL (32.0-36.0) Red Cell Distribution Width 14.2 % (11.6-14.8) Platelet Count 261 K/UL (150-450) Mean Platelet Volume 7.5 FL (6.5-10.1) Neutrophils (%) (Auto) 64.7 % (45.0-75.0) Lymphocytes (%) (Auto) 22.0 % (20.0-45.0) Monocytes (%) (Auto) 7.2 % (1.0-10.0) Eosinophils (%) (Auto) 5.3 % (0.0-3.0) H Basophils (%) (Auto) 0.8 % (0.0-2.0) Prothrombin Time 10.1 SEC (9.30-11.50) Prothromb Time International Ratio 1.0 (0.9-1.1) Activated Partial Thromboplast Time 32 SEC (23-33) Sodium Level 136 MMOL/L (136-145) Potassium Level 4.1 MMOL/L (3.5-5.1) Chloride Level 104 MMOL/L (98-107) Carbon Dioxide Level 23 MMOL/L (21-32) Anion Gap 9 mmol/L (5-15) Blood Urea Nitrogen 5 mg/dL (7-18) L Creatinine 0.7 MG/DL (0.55-1.30) Estimat Glomerular Filtration Rate > 60 mL/min (>60) Glucose Level 99 MG/DL (74-106) Calcium Level 9.3 MG/DL (8.5-10.1) Current Medications Medications (Trade) Dose Ordered Sig/Kehinde Route PRN Reason Start Time Stop Time Status Last Admin Dose Admin Acetaminophen/ Hydrocodone Bitart ([place] 5/325) 1 tab Q4H PRN GT Severe Pain (Pain Scale 7-10) 08/11/18 18:00 08/18/18 17:59 Albuterol Sulfate (Proventil) 2.5 mg Q4H PRN HHN Shortness of Breath 08/11/18 18:00 08/16/18 17:59 08/15/18 11:45 Amlodipine Besylate (Norvasc) 10 mg DAILY GT 08/13/18 11:00 09/12/18 10:59 08/16/18 08:47 Calcium Carbonate (Tums) 500 mg DAILY GT 08/12/18 09:00 09/11/18 08:59 08/15/18 09:09 Clonidine HCl (Catapres tab) 0.2 mg Q4H PRN GT For High Blood Pressure 08/11/18 18:00 09/10/18 17:59 Dextrose/Sodium Chloride 1,000 ml @ 75 mls/hr [id number] IV 08/11/18 21:45 09/10/18 21:44 08/16/18 08:46 Docusate Sodium (Colace) 100 mg DAILY NG 08/12/18 09:00 09/11/18 08:59 08/15/18 09:11 Finasteride (Proscar) 5 mg DAILY ORAL 08/12/18 09:00 09/11/18 08:59 08/15/18 09:09 Hydralazine HCl (Apresoline) 50 mg BID ORAL 08/15/18 18:00 09/14/18 17:59 08/16/18 08:47 Lansoprazole (Prevacid) 30 mg DAILY GT 08/12/18 09:00 09/11/18 08:59 08/15/18 09:09 Lisinopril (Prinivil) 20 mg BID ORAL 08/12/18 09:00 09/11/18 08:59 08/16/18 08:47 Meropenem 1 gm/ Sodium Chloride 100 ml @ 200 mls/hr Q8HR IVPB 08/16/18 06:00 08/21/18 05:59 08/16/18 13:23 Metoprolol Tartrate (Lopressor) 100 mg EVERY 8 HOURS GT 08/11/18 22:00 09/10/18 21:59 08/16/18 13:41 Ondansetron HCl (Zofran) 4 mg Q6H PRN GT Nausea & Vomiting 08/11/18 18:00 09/10/18 17:59 Polyethylene Glycol (Miralax) 17 gm DAILY GT 08/12/18 09:00 09/11/18 08:59 08/15/18 09:09 Potassium Chloride (K-Dur) 20 meq Q12HR GT 08/11/18 21:00 09/10/18 20:59 08/15/18 20:51 Sennosides (Senokot) 8.6 mg BEDTIME GT 08/11/18 21:00 09/10/18 20:59 08/15/18 20:51 Sennosides (Senokot) 8.6 mg BEDTIME PRN GT Constipation 08/11/18 18:00 09/10/18 17:59 Simethicone (Mylicon) 80 mg Q8H PRN GT Abdominal cramps 08/14/18 14:30 09/13/18 14:29 08/15/18 14:50 Sodium Chloride (NaCl) 1 gm Q12HR GT 08/11/18 21:00 09/10/18 20:59 08/15/18 20:51 Tamsulosin HCl (Flomax) 0.4 mg BEDTIME ORAL 08/11/18 21:00 09/10/18 20:59 08/15/18 20:51 Vancomycin HCl (Vanco rx to dose) 1 ea DAILY PRN MISC Per rx protocol 08/11/18 19:15 09/10/18 19:14 Vancomycin HCl 750 mg/Dextrose 275 ml @ 183.333 mls/hr Q12H IVPB 08/14/18 21:00 08/19/18 20:59 08/16/18 08:49 Zinc Oxide (Zinc Oxide) 1 applic DAILY TOPIC 08/13/18 09:00 09/12/18 08:59 08/16/18 08:47 Rodriguez Hawthorne MD Aug 16, 2018 15:34
--- NOTE | 2018-08-16 16:01 | NUR ---
BANK ADVISORCAR DELIVERER SI: ABDOMINAL WALL CELLULITIS T.97.8 HR 91 RR 15 B/P 123/93 NC 3L O2 SAT @ 100% IS; MEROPENEM IV VANCO IV IVF D5NS @ 75ML/HR K-DUR PO MED/SURG STATUS
--- NOTE | 2018-08-16 19:10 | NUR ---
HAND-OFF: Report given to NAV Day.
--- NOTE | 2018-08-16 19:30 | NUR ---
NURSE NOTES: Received patient in no apparent distress. Alert and awake, non verbal. IV site patent and intact. G-tube in place, running Jevity 1.2, 30cc/hr, 0cc residual noted, elevated HOB. Lynn draining well by gravity, yellow urine noted. Bed in lowest position. Call light within reach. Will continue to monitor.
[2018-08-16] MEDS: Tamsulosin 0.4mg cap ORAL SCH (20:37)
[2018-08-16] MEDS: Sennosides 8.6mg tab GT SCH (20:37)
[2018-08-17] VITALS: BP 151/88
[2018-08-17 04:00] VITALS: BP 146/90
--- NOTE | 2018-08-17 07:25 | NUR ---
NURSE NOTES: Received patient in bed, patient awake, non verbal. IV site patent and intact.on G-tube feeding ,site still leaking ,no residual noted, on aspiration and fall precaution, elevated HOB. Lynn draining well by gravity, yellow urine noted. Bed in lowest position. Call light within reach. Will continue to monitor. ines christopher
--- NOTE | 2018-08-17 07:27 | NUR ---
HAND-OFF: Report given to Lucy CHOPRA.
[2018-08-17 08:00] VITALS: BP 140/88
[2018-08-17 08:29] LABS: BASOPHILS % (AUTO) 1.2 % (0.0-2.0); EOSINOPHILS % (AUTO) 4.9 % (0.0-3.0); HEMATOCRIT 44.5 % (42.0-52.0); HEMOGLOBIN 14.7 G/DL (14.2-18.0); LYMPHOCYTES % (AUTO) 20.2 % (20.0-45.0); MEAN CORPUSCULAR VOLUME 89 FL (80-99); MONOCYTES % (AUTO) 8.6 % (1.0-10.0); PLATELET COUNT 263 K/UL (150-450); RED BLOOD COUNT 5.01 M/UL (4.70-6.10); RED CELL DISTRIBUTION WIDTH 14.1 % (11.6-14.8); WHITE BLOOD COUNT 6.4 K/UL (4.8-10.8)
[2018-08-17] MEDS: HydrALAZINE 50mg tab ORAL SCH (08:38)
[2018-08-17] MEDS: Lisinopril 20mg tab ORAL SCH ×2 (08:39→17:09)
[2018-08-17] MEDS: Docusate 100mg/10ml Liq NG SCH (08:39)
[2018-08-17] MEDS: Tums 500mg GT SCH (08:39)
[2018-08-17] MEDS: Sodium Chloride 1gm Tab GT SCH ×2 (08:39→21:00)
--- NOTE | 2018-08-17 08:44 | General Progress Note ---
Assessment/Plan Problem List: (1) G-tube replacement (2) Malfunction of gastrostomy tube ICD Codes: K94.23 - Gastrostomy malfunction SNOMED: 115381567 (3) Abdominal distension ICD Codes: R14.0 - Abdominal distension (gaseous) SNOMED: 59217727 (4) HTN (hypertension) ICD Codes: I10 - Essential (primary) hypertension SNOMED: 97526807 Assessment/Plan attempt for JT placement failed yesterday GT site is large and still leaking plan remove the GT today and hopping that the opening will shrink kub fu labs ivf for now Subjective ROS Limited/Unobtainable: No Allergies: Coded Allergies: NO KNOWN ALLERGIES (Unverified Allergy, Unknown, 03/02/15) Objective Last 24 Hour Vital Signs Date Time Temp Pulse Resp B/P (MAP) Pulse Ox O2 Delivery O2 Flow Rate FiO2 08/17/18 08:39 92 146/90 08/17/18 08:39 146/90 08/17/18 08:38 146/90 08/17/18 05:35 92 146/90 08/17/18 04:00 98.5 92 19 146/90 (108) 95 08/17/18 00:00 98.5 82 18 151/88 (109) 96 08/16/18 22:19 94 130/92 08/16/18 21:00 Room Air 08/16/18 20:00 98.0 94 18 130/92 (105) 97 08/16/18 17:02 131/93 08/16/18 17:01 131/93 08/16/18 16:00 98.1 90 19 131/93 (106) 98 08/16/18 15:15 97.8 91 15 123/95 100 Nasal Cannula 3 08/16/18 15:11 86 22 96 08/16/18 15:10 91 15 134/89 99 Nasal Cannula 3 08/16/18 15:06 97.0 92 22 142/94 99 Nasal Cannula 3 08/16/18 13:41 81 144/94 08/16/18 12:00 97.8 85 20 144/94 (111) 98 08/16/18 09:38 Room Air 08/16/18 09:34 Room Air 08/16/18 08:47 144/94 08/16/18 08:47 81 144/94 08/16/18 08:47 144/94 Intake and Output 08/16/18 08/17/18 18:59 06:59 Intake Total 905.000 ml 1100.000 ml Output Total 600 ml 1100 ml Balance 305.000 ml 0 ml Free Water 150 ml IV Total 875.000 ml 475.000 ml Tube Feeding 30 ml 475 ml Output Urine Total 600 ml 1100 ml # Bowel Movements 2 1 Laboratory Tests 08/17/18 07:43: White Blood Count 6.4, Red Blood Count 5.01, Hemoglobin 14.7, Hematocrit 44.5, Mean Corpuscular Volume 89, Mean Corpuscular Hemoglobin 29.3, Mean Corpuscular Hemoglobin Concent 33.1, Red Cell Distribution Width 14.1, Platelet Count 263, Mean Platelet Volume 6.7, Neutrophils (%) (Auto) 65.0, Lymphocytes (%) (Auto) 20.2, Monocytes (%) (Auto) 8.6, Eosinophils (%) (Auto) 4.9H, Basophils (%) (Auto ) 1.2, Sodium Level [Pending], Potassium Level [Pending], Chloride Level [ Pending], Carbon Dioxide Level [Pending], Blood Urea Nitrogen [Pending], Creatinine [Pending], Estimat Glomerular Filtration Rate [Pending], Glucose Level [Pending], Calcium Level [Pending] Height (Feet): 5 Height (Inches): 5.00 Weight (Pounds): 138 General Appearance: alert EENT: normal ENT inspection Neck: supple Cardiovascular: normal rate Respiratory/Chest: decreased breath sounds Abdomen: normal bowel sounds, non tender, soft Extremities: non-tender Homar Parra MD Aug 17, 2018 08:44
[2018-08-17] MEDS: Zinc Oxide Oint 2oz TOPIC SCH (09:00)
[2018-08-17] MEDS: Miralax 17gm pkt GT SCH (09:00)
[2018-08-17 09:20] LABS: ANION GAP 9 mmol/L (5-15); BLOOD UREA NITROGEN 9 mg/dL (7-18); CALCIUM 9.5 MG/DL (8.5-10.1); CARBON DIOXIDE 24 MMOL/L (21-32); CHLORIDE 105 MMOL/L (98-107); CREATININE 0.7 MG/DL (0.55-1.30); POTASSIUM 3.9 MMOL/L (3.5-5.1); SODIUM 138 MMOL/L (136-145)
[2018-08-17] MEDS: Vancomycin 750 MG in D5W 275 ML IVPB SCH (09:48)
--- NOTE | 2018-08-17 10:11 | 48 Hour Post Anesthesia Eval ---
Post Anesthesia Evaluation Procedure: EGD Attempted J-tube placement Date of Evaluation: Aug 17, 2018 Time of Evaluation: 10:09 Blood Pressure Systolic: 148 0: 76 Pulse Rate: 82 Respiratory Rate: 22 Temperature (Fahrenheit): 97.6 O2 Sat by Pulse Oximetry: 97 Airway: patent Nausea: No Vomiting: No Pain Intensity: 1 Hydration Status: adequate Cardiopulmonary Status: stable Mental Status/LOC: patient returned to baseline Follow-up Care/Observations: n/a Post-Anesthesia Complications: none Follow-up care needed: N/A Galen Bailey MD Aug 17, 2018 10:11
--- NOTE | 2018-08-17 10:35 | General Progress Note ---
Assessment/Plan Assessment/Plan G-tube cellulitis, improved malfunctioning G-tube history of seizure history of intracranial hemorrhage with right hemiparesis, expressive aphasia hypertension, fair control coronary artery disease Abx per ID failed JT placement GT removed will place PICC line for TPN cont IVF, no feeds cont BP rx Subjective ROS Limited/Unobtainable: Yes Allergies: Coded Allergies: NO KNOWN ALLERGIES (Unverified Allergy, Unknown, 03/02/15) Objective Last 24 Hour Vital Signs Date Time Temp Pulse Resp B/P (MAP) Pulse Ox O2 Delivery O2 Flow Rate FiO2 08/17/18 10:11 82 22 97 08/17/18 08:39 92 146/90 08/17/18 08:39 146/90 08/17/18 08:38 146/90 08/17/18 08:10 Room Air 08/17/18 08:00 97.7 98 19 140/88 (105) 95 08/17/18 05:35 92 146/90 08/17/18 04:00 98.5 92 19 146/90 (108) 95 08/17/18 00:00 98.5 82 18 151/88 (109) 96 08/16/18 22:19 94 130/92 08/16/18 21:00 Room Air 08/16/18 20:00 98.0 94 18 130/92 (105) 97 08/16/18 17:02 131/93 08/16/18 17:01 131/93 08/16/18 16:00 98.1 90 19 131/93 (106) 98 08/16/18 15:15 97.8 91 15 123/95 100 Nasal Cannula 3 08/16/18 15:11 86 22 96 08/16/18 15:10 91 15 134/89 99 Nasal Cannula 3 08/16/18 15:06 97.0 92 22 142/94 99 Nasal Cannula 3 08/16/18 13:41 81 144/94 08/16/18 12:00 97.8 85 20 144/94 (111) 98 Intake and Output 08/16/18 08/17/18 19:00 07:00 Intake Total 935.000 ml 1070.000 ml Output Total 600 ml 1100 ml Balance 335.000 ml -30.000 ml Free Water 150 ml IV Total 875.000 ml 475.000 ml Tube Feeding 60 ml 445 ml Output Urine Total 600 ml 1100 ml # Bowel Movements 2 1 Laboratory Tests 08/17/18 07:43: White Blood Count 6.4, Red Blood Count 5.01, Hemoglobin 14.7, Hematocrit 44.5, Mean Corpuscular Volume 89, Mean Corpuscular Hemoglobin 29.3, Mean Corpuscular Hemoglobin Concent 33.1, Red Cell Distribution Width 14.1, Platelet Count 263, Mean Platelet Volume 6.7, Neutrophils (%) (Auto) 65.0, Lymphocytes (%) (Auto) 20.2, Monocytes (%) (Auto) 8.6, Eosinophils (%) (Auto) 4.9H, Basophils (%) (Auto ) 1.2, Sodium Level 138, Potassium Level 3.9, Chloride Level 105, Carbon Dioxide Level 24, Anion Gap 9, Blood Urea Nitrogen 9, Creatinine 0.7, Estimat Glomerular Filtration Rate > 60, Glucose Level 118H, Calcium Level 9.5 Height (Feet): 5 Height (Inches): 5.00 Weight (Pounds): 138 General Appearance: no apparent distress Neck: supple Cardiovascular: normal rate Respiratory/Chest: lungs clear Abdomen: non tender Jose J Oquendo MD Aug 17, 2018 10:35
[2018-08-17] MEDS ORDERED: Lidocaine 1% Plain 30 ml INJ PRN (10:45)
[2018-08-17] MEDS ORDERED: Heparin1,000 units/500ml Premix(Conc:2 units/ml) IV PRN (10:45)
[2018-08-17] MEDS: D5 1/2NS w/KCL 10meq 1,000 ML IV SCH (11:55)
[2018-08-17 12:00] VITALS: BP 148/102
[2018-08-17 16:00] VITALS: BP 154/103
--- NOTE | 2018-08-17 17:30 | Procedure Note ---
DATE OF PROCEDURE: 08/16/2018 SURGEON: Homar Parra M.D. REFERRING PHYSICIAN: Jose J Oquendo M.D. ANESTHESIOLOGIST: Galen Bailey M.D. PROCEDURE: Upper endoscopy with biopsy. ANESTHESIA: Per Dr. Bailey. INSTRUMENT: Olympus adult flexible upper endoscope. INDICATION: Malfunctioning G-tube. The procedure, risks, benefits, and possible consequences, including hemorrhage, aspiration, perforation and infection, and alternative treatments, were explained to the patient/legal guardian by Dr. Homar Parra and the patient/legal guardian understood and accepted these risks. DESCRIPTION OF PROCEDURE: After informed consent was obtained and the patient was adequately sedated, the Olympus upper endoscope was advanced from the mouth into the second portion of duodenum and retroflexion was performed in the stomach. The patient had a gastric polyp in the prepyloric area, which measured roughly about 6-7 mm. This polyp was biopsied. Then, we tried to change the G-tube to a J-tube. Unfortunately, this was a very challenging procedure. We were not successful for few reasons, one is that opening of the G-tube stoma was very large and air was leaking out constantly. The other problem was that the abdomen was distended and every time the patient coughed, the J-tube that we placed all the way in would come back out again into the stomach, so after trying for over half an hour, we decided to call the case and we replaced the G-tube again with another 24-Cymro balloon-type G-tube. The patient tolerated the procedure very well without any complication. SUMMARY OF FINDINGS: 1. Gastric polyp, status post biopsy. 2. Status post replacement of the G-tube. RECOMMENDATIONS: 1. We will resume tube feeding. 2. Follow up biopsy results. I want to thank Dr. Oquendo for this kind referral. Homar Parra M.D. DR: PATY JOB#: [id number] CC: Jose J Oquendo M.D.; Fax#: [phone]
--- NOTE | 2018-08-17 19:28 | NUR ---
HAND-OFF: Report given to NAV Pierre
--- NOTE | 2018-08-17 19:42 | NUR ---
NURSE NOTES: Pt received awake, non verbal at the moment, quiles catheter in place, IV fluids running, may need new iV site, bed in lowest position, call light within reach, dressing on abdomen intact and not soiled. will continue to monitor.
[2018-08-17 20:00] VITALS: BP 139/99
[2018-08-17] MEDS ORDERED: Dyna-Hex 2% Top Sol 2oz TOPIC SCH (20:00)
[2018-08-17] MEDS: Sennosides 8.6mg tab GT SCH (21:00)
[2018-08-17] MEDS: Tamsulosin 0.4mg cap ORAL SCH (21:00)
--- NOTE | 2018-08-17 21:06 | NUR ---
NURSE NOTES: Pharmacy called stating Vanco Trough is high, they will decrease the dose to 500mg and not to hang the 750mg.
[2018-08-17] MEDS ORDERED: Vancomycin 500mg/D5W 110ml IVPB SCH ×2 (22:00)
[2018-08-18 04:00] VITALS: BP 155/111
[2018-08-18] MEDS: D5 1/2NS w/KCL 10meq 1,000 ML IV SCH (04:27)
--- NOTE | 2018-08-18 05:10 | NUR ---
Pt BP 165/105 and HR 134, previous BP 155/111 and HR 126. Called Dr Oquendo, received order to transfer to Tele and call him back at change of shift.
--- NOTE | 2018-08-18 05:50 | NUR ---
Pt stat EKG showed Sinus Tachy, called MD Oquendo, order to transfer pt to Tele next shift 7am.
--- NOTE | 2018-08-18 07:20 | NUR ---
NURSE NOTES: received patient awake, non verbal , no sign of distress,NPO , IVF patent and infusing well ,quiles catheter in place draining well,, bed in lowest position, call light within reach, dressing on abdomen dry and intact . will continue to monitor. ines christopher
--- NOTE | 2018-08-18 07:25 | NUR ---
HAND-OFF: Report given to NAV Harrsi. Endorsed about pt transfer to tele.
[2018-08-18 07:45] LABS: BASOPHILS % (AUTO) 1.4 % (0.0-2.0); EOSINOPHILS % (AUTO) 4.2 % (0.0-3.0); HEMOGLOBIN 13.9 G/DL (14.2-18.0); LYMPHOCYTES % (AUTO) 21.6 % (20.0-45.0); MEAN CORPUSCULAR VOLUME 90 FL (80-99); MONOCYTES % (AUTO) 11.5 % (1.0-10.0); NEUTROPHILS % (AUTO) 61.4 % (45.0-75.0); PLATELET COUNT 273 K/UL (150-450); RED BLOOD COUNT 4.68 M/UL (4.70-6.10); RED CELL DISTRIBUTION WIDTH 14.1 % (11.6-14.8); WHITE BLOOD COUNT 5.9 K/UL (4.8-10.8)
[2018-08-18 08:00] VITALS: BP 137/97
[2018-08-18 08:15] LABS: ALANINE AMINOTRANSFERASE 17 U/L (12-78); ALBUMIN 3.5 G/DL (3.4-5.0); ALBUMIN/GLOBULIN RATIO 0.9 (1.0-2.7); ALKALINE PHOSPHATASE 188 U/L (46-116); ANION GAP 10 mmol/L (5-15); ASPARTATE AMINO TRANSFERASE 15 U/L (15-37); BLOOD UREA NITROGEN 5 mg/dL (7-18); CALCIUM 9.2 MG/DL (8.5-10.1); CARBON DIOXIDE 24 MMOL/L (21-32); CHLORIDE 103 MMOL/L (98-107); CREATININE 0.7 MG/DL (0.55-1.30); POTASSIUM 3.4 MMOL/L (3.5-5.1); SODIUM 137 MMOL/L (136-145)
--- NOTE | 2018-08-18 08:30 | NUR ---
NURSE NOTES: Received report from Lucy CHOPRA. Pt was transferred to Tele from Med-Surg via hospital bed. Tele monitor placed on pt, displays Sinus Tachy with HR fluctuating from 105-120's. Pt is awake, alert, oriented x4, pt is nonverbal, however able to comprehend verbal communication, and able to communicate by facial expressions and move of left upper extremity. Skin has dressing on GT site, which has GT removed by Dr Parra on 08/17/18 per report by Lucy CHOPRA, dressing is currently dry/intact, will reassess and change according to order/as needed. Lynn catheter 16F in place, draining clear/yellow urine. Per report, pt is bedbound. Call light is placed within easy reach, bed in lowest position, three side rails up, brakes engaged, alarm on. Will continue to monitor pt and follow plan of care per MD orders and protocol.
--- NOTE | 2018-08-18 08:40 | NUR ---
nurse notes transferred to [facility] bed 2, via bed no belongings ,report given to NAV Nelson, Accordingly notified Marlene daughter tel [phone] regarding patient transfer to [address] nav christopher
[2018-08-18] MEDS: Docusate 100mg/10ml Liq NG SCH (09:00)
[2018-08-18] MEDS: Lisinopril 20mg tab ORAL SCH (09:00)
[2018-08-18] MEDS: Miralax 17gm pkt GT SCH (09:00)
[2018-08-18] MEDS: Tums 500mg GT SCH (09:00)
[2018-08-18] MEDS: Sodium Chloride 1gm Tab GT SCH ×2 (09:00→21:00)
--- NOTE | 2018-08-18 10:06 | General Progress Note ---
Assessment/Plan Assessment/Plan G-tube cellulitis, improved malfunctioning G-tube history of seizure history of intracranial hemorrhage with right hemiparesis, expressive aphasia hypertension, fair control coronary artery disease Abx per ID GT site leaking disc w GI today if we cannot place a feeding tube will need PICC line for TPN cont IVF, no feeds K replacement IV BP rx, catapres topical Subjective ROS Limited/Unobtainable: Yes Allergies: Coded Allergies: NO KNOWN ALLERGIES (Unverified Allergy, Unknown, 03/02/15) Objective Last 24 Hour Vital Signs Date Time Temp Pulse Resp B/P (MAP) Pulse Ox O2 Delivery O2 Flow Rate FiO2 08/18/18 08:00 Room Air 08/18/18 08:00 97.6 110 16 137/97 (110) 96 08/18/18 04:00 97.7 126 21 155/111 (126) 96 08/17/18 21:00 Room Air 08/17/18 20:00 97.7 99 19 139/99 (112) 97 08/17/18 17:09 154/103 08/17/18 16:00 98.2 109 20 154/103 (120) 97 08/17/18 14:59 148/102 08/17/18 12:00 99.3 104 21 148/102 (117) 95 08/17/18 10:11 82 22 97 Intake and Output 08/17/18 08/18/18 18:59 06:59 Intake Total 1035.33 ml 1110 ml Output Total 1500 ml Balance 1035.33 ml -390 ml IV Total 885.33 ml 1110 ml Tube Feeding 150 ml Output Urine Total 1500 ml Laboratory Tests 08/17/18 19:44: Vancomycin Level Trough 17.1H 08/18/18 06:35: White Blood Count 5.9, Red Blood Count 4.68L, Hemoglobin 13.9L, Hematocrit 42.0 , Mean Corpuscular Volume 90, Mean Corpuscular Hemoglobin 29.6, Mean Corpuscular Hemoglobin Concent 33.0, Red Cell Distribution Width 14.1, Platelet Count 273, Mean Platelet Volume 7.2, Neutrophils (%) (Auto) 61.4, Lymphocytes (% ) (Auto) 21.6, Monocytes (%) (Auto) 11.5H, Eosinophils (%) (Auto) 4.2H, Basophils (%) (Auto) 1.4, Sodium Level 137, Potassium Level 3.4L, Chloride Level 103, Carbon Dioxide Level 24, Anion Gap 10, Blood Urea Nitrogen 5L, Creatinine 0.7, Estimat Glomerular Filtration Rate > 60, Glucose Level 120H, Calcium Level 9.2, Total Bilirubin 1.0, Aspartate Amino Transf (AST/SGOT) 15, Alanine Aminotransferase (ALT/SGPT) 17, Alkaline Phosphatase 188H, Total Protein 7.6, Albumin 3.5, Globulin 4.1, Albumin/Globulin Ratio 0.9L Height (Feet): 5 Height (Inches): 5.00 Weight (Pounds): 138 General Appearance: no apparent distress Cardiovascular: regular rhythm, tachycardia Respiratory/Chest: lungs clear Abdomen: non tender Jose J Oquendo MD Aug 18, 2018 10:06
--- NOTE | 2018-08-18 10:16 | NUR ---
CASE MANAGEMENT: REVIEW 08/18/2018 SI:ABD WALL CELLULITIS. T 97.6 HR 110 RR 16 B/P 137/97 SATS 96% ON RA K 3.4 BUN 5 GLU 120 ALP 188 IS: IVF @ 75 mL/HR FLOMAX PO QHS LISINOPRIL PO BID PROSCAR PO QD PREVACID GT QD NORVASC GT QD VANCO IV Q12H K DUR GT Q12H NACL GT 12H MEROPENEM IV Q8H METOPROLOL IV Q6H TELE STATUS DCP: PATIENT TO BE DISCHARGED TO REHAB ON [facility] ONCE MEDICALLY CLEARED.
--- NOTE | 2018-08-18 10:39 | General Progress Note ---
Assessment/Plan Problem List: (1) G-tube replacement (2) Malfunction of gastrostomy tube ICD Codes: K94.23 - Gastrostomy malfunction SNOMED: 332014244 (3) Abdominal distension ICD Codes: R14.0 - Abdominal distension (gaseous) SNOMED: 74514211 (4) HTN (hypertension) ICD Codes: I10 - Essential (primary) hypertension SNOMED: 48774825 Assessment/Plan attempt for JT placement failed GT is now closing plan new PEG placement on Sunday zinc oxide ivf for now Subjective ROS Limited/Unobtainable: No Allergies: Coded Allergies: NO KNOWN ALLERGIES (Unverified Allergy, Unknown, 03/02/15) Objective Last 24 Hour Vital Signs Date Time Temp Pulse Resp B/P (MAP) Pulse Ox O2 Delivery O2 Flow Rate FiO2 08/18/18 08:00 Room Air 08/18/18 08:00 97.6 110 16 137/97 (110) 96 08/18/18 04:00 97.7 126 21 155/111 (126) 96 08/17/18 21:00 Room Air 08/17/18 20:00 97.7 99 19 139/99 (112) 97 08/17/18 17:09 154/103 08/17/18 16:00 98.2 109 20 154/103 (120) 97 08/17/18 14:59 148/102 08/17/18 12:00 99.3 104 21 148/102 (117) 95 Intake and Output 08/17/18 08/18/18 18:59 06:59 Intake Total 1035.33 ml 1110 ml Output Total 1500 ml Balance 1035.33 ml -390 ml IV Total 885.33 ml 1110 ml Tube Feeding 150 ml Output Urine Total 1500 ml Laboratory Tests 08/17/18 19:44: Vancomycin Level Trough 17.1H 08/18/18 06:35: White Blood Count 5.9, Red Blood Count 4.68L, Hemoglobin 13.9L, Hematocrit 42.0 , Mean Corpuscular Volume 90, Mean Corpuscular Hemoglobin 29.6, Mean Corpuscular Hemoglobin Concent 33.0, Red Cell Distribution Width 14.1, Platelet Count 273, Mean Platelet Volume 7.2, Neutrophils (%) (Auto) 61.4, Lymphocytes (% ) (Auto) 21.6, Monocytes (%) (Auto) 11.5H, Eosinophils (%) (Auto) 4.2H, Basophils (%) (Auto) 1.4, Sodium Level 137, Potassium Level 3.4L, Chloride Level 103, Carbon Dioxide Level 24, Anion Gap 10, Blood Urea Nitrogen 5L, Creatinine 0.7, Estimat Glomerular Filtration Rate > 60, Glucose Level 120H, Calcium Level 9.2, Total Bilirubin 1.0, Aspartate Amino Transf (AST/SGOT) 15, Alanine Aminotransferase (ALT/SGPT) 17, Alkaline Phosphatase 188H, Total Protein 7.6, Albumin 3.5, Globulin 4.1, Albumin/Globulin Ratio 0.9L Height (Feet): 5 Height (Inches): 5.00 Weight (Pounds): 138 General Appearance: no apparent distress EENT: normal ENT inspection Neck: supple Cardiovascular: normal rate Respiratory/Chest: decreased breath sounds Abdomen: normal bowel sounds, non tender, soft Extremities: non-tender Homar Parra MD Aug 18, 2018 10:39
[2018-08-18] MEDS ORDERED: Heparin1,000 units/500ml Premix(Conc:2 units/ml) IV PRN (11:00)
[2018-08-18] MEDS ORDERED: Lidocaine 1% Plain 30 ml INJ PRN (11:00)
[2018-08-18] MEDS: D5 1/2NS w/KCl 20mEq 1,000 ML IV SCH (11:30)
[2018-08-18] MEDS ORDERED: D5 1/2NS w/KCl 20mEq 1,000 ML IV SCH (11:30)
[2018-08-18 12:00] VITALS: BP 153/110
[2018-08-18] MEDS ORDERED: cloNIDine 0.2mg Tab GT PRN (12:00)
[2018-08-18] MEDS ORDERED: HYDROcodone/Acetamin 5/325 tab GT PRN (12:00)
[2018-08-18] MEDS ORDERED: Simethicone 80mg tab GT PRN (12:00)
[2018-08-18] MEDS ORDERED: Metoprolol Tartrate 10 MG in D5W 55 ML IVPB SCH (12:00)
[2018-08-18] MEDS: Metoprolol Tartrate 10 MG in D5W 55 ML IVPB SCH ×2 (12:05→18:13)
--- NOTE | 2018-08-18 13:00 | NUR ---
NURSE NOTES: Dr Oquendo aware of pt's heart rhythm/rate, ST at 110's-120's, IV Metoprolol ordered.
--- NOTE | 2018-08-18 15:18 | Infectious Diseases Prog Note ---
Assessment/Plan Assessment/Plan ASSESSMENT AND PLAN: 1. abdominal wall cellulitis, esbl e.coli g-tube infection, fungal wound culture likely contaminant - vancomycin meropenem x 3 days, cefepime discontinued - lotrimin cream for possible fungal rash abdominal wall started - cellulitis clinically improved - monitor labs - g-tube changed - continue treatment per Dr. Oquendo and GI 2. The patient has dysphagia and G-tube - s/p egd 3. Hypertension. Blood pressure treatment per Dr. Oquendo. 4. CVA. 5. Right hemiparesis. 6. Cerebral hemorrhage. 7. Expressive aphasia. 8. Seizure disorder. 9. COPD. 10. Coronary artery disease. 11. Skin care protocol. 12. No known drug allergies. 13. Social history negative. 14. Family history noncontributory. 15. MAR was noted. 16. Case discussed with RN. 17. Continue treatment per primary consultants. 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, vre colonization Subjective Constitutional: Denies: fever HEENT: Denies: congestion Respiratory: Denies: shortness of breath Cardiovascular: Denies: chest pain Gastrointestinal/Abdominal: Denies: nausea, vomiting, diarrhea Genitourinary: Reports: other - + quiles Neurologic: Denies: headache Psychiatric: Denies: depression Skin: Reports: other - cellulitis and rash Hematologic: Denies: swollen lymph nodes Musculoskeletal: Denies: pain Allergies: Coded Allergies: NO KNOWN ALLERGIES (Unverified Allergy, Unknown, 03/02/15) Objective Vital Signs Last 24 Hour Vital Signs Date Time Temp Pulse Resp B/P (MAP) Pulse Ox O2 Delivery O2 Flow Rate FiO2 08/18/18 12:05 117 137/97 08/18/18 08:00 Room Air 08/18/18 08:00 97.6 110 16 137/97 (110) 96 08/18/18 04:00 97.7 126 21 155/111 (126) 96 08/17/18 21:00 Room Air 08/17/18 20:00 97.7 99 19 139/99 (112) 97 08/17/18 17:09 154/103 08/17/18 16:00 98.2 109 20 154/103 (120) 97 Height (Feet): 5 Height (Inches): 5.00 Weight (Pounds): 138 General Appearance: no acute distress HEENT: normocephalic, atraumatic, mucous membranes moist Respiratory/Chest: lungs clear, normal breath sounds, no respiratory distress, no accessory muscle use Cardiovascular: normal rate, regular rhythm, no gallop/murmur, no JVD Abdomen: normal bowel sounds, soft, non tender, no organomegaly, non distended Genitourinary: other - + quiles - urine clear Extremities: no cyanosis Skin: other - abdominal wall redness less, possible fungal rash Neurologic/Psychiatric: consumer services advisor II-XII grossly normal, alert, responsive Lymphatic: no neck adenopathy Musculoskeletal: no effusion Objective Comparison: 08/13/2018 KUB - Single view of the abdomen obtained Findings: Bowel gas pattern is nonspecific. There is contrast material within portions of the colon. Gastrostomy tube is present. There is diffuse ankylosis of the visualized spine. There is also apparent fusion of the sacroiliac joints. IMPRESSION: Nonspecific bowel gas Microbiology Date/Time Source Procedure Growth Status 08/11/18 13:00 Blood Blood Culture - Final NO GROWTH AFTER 5 DAYS Complete 08/12/18 21:00 Wound Gram Stain - Final Complete 08/12/18 21:00 Wound Culture - Final Escherichia Coli - Esbl Debi Albicans Debi Tropicalis Complete 08/11/18 15:30 Nasal Nares MRSA Culture - Final Staphylococcus Aureus - Mrsa Complete 08/11/18 15:30 Rectum VRE Culture - Final Enterococcus Faecalis - Vre Complete 08/11/18 15:30 Rectum - Final NO CARBAPENEM-RESISTANT ENTEROBACTERI... Complete Laboratory Tests Test 08/17/18 19:44 08/18/18 06:35 Vancomycin Level Trough 17.1 ug/mL (5.0-12.0) H White Blood Count 5.9 K/UL (4.8-10.8) Red Blood Count 4.68 M/UL (4.70-6.10) L Hemoglobin 13.9 G/DL (14.2-18.0) L Hematocrit 42.0 % (42.0-52.0) Mean Corpuscular Volume 90 FL (80-99) Mean Corpuscular Hemoglobin 29.6 PG (27.0-31.0) Mean Corpuscular Hemoglobin Concent 33.0 G/DL (32.0-36.0) Red Cell Distribution Width 14.1 % (11.6-14.8) Platelet Count 273 K/UL (150-450) Mean Platelet Volume 7.2 FL (6.5-10.1) Neutrophils (%) (Auto) 61.4 % (45.0-75.0) Lymphocytes (%) (Auto) 21.6 % (20.0-45.0) Monocytes (%) (Auto) 11.5 % (1.0-10.0) H Eosinophils (%) (Auto) 4.2 % (0.0-3.0) H Basophils (%) (Auto) 1.4 % (0.0-2.0) Sodium Level 137 MMOL/L (136-145) Potassium Level 3.4 MMOL/L (3.5-5.1) L Chloride Level 103 MMOL/L (98-107) Carbon Dioxide Level 24 MMOL/L (21-32) Anion Gap 10 mmol/L (5-15) Blood Urea Nitrogen 5 mg/dL (7-18) L Creatinine 0.7 MG/DL (0.55-1.30) Estimat Glomerular Filtration Rate > 60 mL/min (>60) Glucose Level 120 MG/DL (74-106) H Calcium Level 9.2 MG/DL (8.5-10.1) Total Bilirubin 1.0 MG/DL (0.2-1.0) Aspartate Amino Transf (AST/SGOT) 15 U/L (15-37) Alanine Aminotransferase (ALT/SGPT) 17 U/L (12-78) Alkaline Phosphatase 188 U/L (46-116) H Total Protein 7.6 G/DL (6.4-8.2) Albumin 3.5 G/DL (3.4-5.0) Globulin 4.1 g/dL Albumin/Globulin Ratio 0.9 (1.0-2.7) L Current Medications Medications (Trade) Dose Ordered Sig/Kehinde Route PRN Reason Start Time Stop Time Status Last Admin Dose Admin Amlodipine Besylate (Norvasc) 10 mg DAILY GT 08/19/18 09:00 09/12/18 10:59 Calcium Carbonate (Tums) 500 mg DAILY GT 08/19/18 09:00 09/11/18 08:59 Chlorhexidine Gluconate (Ivett-Hex 2%) 1 applic DAILY@1999 TOPIC 08/18/18 20:00 09/16/18 19:59 Clonidine HCl (Catapres TTS-3) 1 patch QWEEK TDERMAL 08/24/18 15:00 09/16/18 14:59 Clonidine HCl (Catapres tab) 0.2 mg Q4H PRN GT SBP > 170mmHg 08/18/18 12:00 09/10/18 11:59 Dextrose/ Electrolytes 1,000 ml @ 75 mls/hr [id number] IV 08/18/18 11:30 09/17/18 11:29 08/18/18 11:30 Docusate Sodium (Colace) 100 mg DAILY NG 08/19/18 09:00 09/11/18 08:59 Finasteride (Proscar) 5 mg DAILY ORAL 08/19/18 09:00 09/11/18 08:59 Heparin Sodium/ Sodium Chloride (Heparin 1000 units/500ml Premix) 1,000 unit ONCE PRN IV PICC PLACEMENT 08/18/18 11:00 08/19/18 23:59 Lansoprazole (Prevacid) 30 mg DAILY GT 08/19/18 09:00 09/11/18 08:59 Lidocaine HCl (Xylocaine 1% 30ml) 30 ml ONCE PRN INJ PICC PLACEMENT 08/18/18 11:00 08/19/18 23:59 Lisinopril (Prinivil) 20 mg BID GT 08/18/18 18:00 09/11/18 08:59 Meropenem 1 gm/ Sodium Chloride 100 ml @ 200 mls/hr Q8HR IVPB 08/18/18 14:00 08/21/18 05:59 08/18/18 13:54 Metoprolol Tartrate 10 mg/ Dextrose 65 ml @ 130 mls/hr Q6HR IVPB 08/18/18 12:00 09/17/18 11:59 08/18/18 12:05 Ondansetron HCl (Zofran) 4 mg Q6H PRN GT Nausea & Vomiting 08/18/18 12:00 09/10/18 17:59 Polyethylene Glycol (Miralax) 17 gm DAILY GT 08/19/18 09:00 09/11/18 08:59 Potassium Chloride (K-Dur) 20 meq Q12HR GT 08/18/18 21:00 09/10/18 20:59 Sennosides (Senokot) 8.6 mg BEDTIME GT 08/18/18 21:00 09/10/18 20:59 Sennosides (Senokot) 8.6 mg BEDTIME PRN GT Constipation 08/18/18 21:00 09/10/18 17:59 Simethicone (Mylicon) 80 mg Q8H PRN GT Abdominal cramps 08/18/18 12:00 09/13/18 11:59 Sodium Chloride (NaCl) 1 gm Q12HR GT 08/18/18 21:00 09/10/18 20:59 Tamsulosin HCl (Flomax) 0.4 mg BEDTIME ORAL 08/18/18 21:00 09/10/18 20:59 Vancomycin HCl (Vanco rx to dose) 1 ea DAILY PRN MISC Per rx protocol 08/18/18 11:00 09/17/18 10:59 Vancomycin HCl 500 mg/Dextrose 110 ml @ 110 mls/hr Q12H IVPB 08/18/18 22:00 08/22/18 21:59 Zinc Oxide (Zinc Oxide) 1 applic TWICE A DAY TOPIC 08/18/18 18:00 09/12/18 08:59 Rodriguez Hawthorne MD Aug 18, 2018 15:18
[2018-08-18 16:00] VITALS: BP 149/97
[2018-08-18] MEDS: Lisinopril 20mg tab GT SCH (17:47)
[2018-08-18] MEDS ORDERED: Zinc Oxide Oint 2oz TOPIC SCH (18:00)
[2018-08-18] MEDS: Zinc Oxide Oint 2oz TOPIC SCH (18:12)
--- NOTE | 2018-08-18 18:30 | NUR ---
NURSE NOTES: Dr Oquendo and Dr Parra both saw pt at bedside. Pt is currently NPO, per MD instructions, ok to hold and non-admin all GT meds due to GT-removal yesterday. Per Dr Oquendo, no need for NG insertion due to risk of gastric contents spilling out from the current GT-site. Per Dr Parra, plan is to wait for GT site to heal/close completely until next PEG placement. Consents filed in chart for PICC placement, EGD and PEG placement. Dressing on GT-site was changed, Zinc Oxide applied topically as ordered and covered with 4x4 gauze and abdominal pad.
[2018-08-18] MEDS: Dyna-Hex 2% Top Sol 2oz TOPIC SCH (19:46)
[2018-08-18 20:00] VITALS: BP 124/87
--- NOTE | 2018-08-18 20:14 | NUR ---
HAND-OFF: Report given to Celina CHOPRA. Pt is resting in bed in stable condition. Endorsed plan of care.
--- NOTE | 2018-08-18 20:20 | NUR ---
NURSE NOTES: Received report from NAV Nelson. Patient is awake lying semi-sena's; resting comfortably. No signs of acute distress noted; denies pain at this time. AOx2-3; able to follow commands, but unable to verbalize needs. Aphasic. Patient on strict NPO. Checked IV site, lines, and IV rate; patent and running. No erythema, bleeding, or infiltration noted. Wound dressings on abdomen and right hallux dry and intact. Lynn catheter draining well to gravity. Bed at lowest position, brakes on, siderails up x3. Call light within reach. Will continue to monitor.
[2018-08-18] MEDS ORDERED: Sennosides 8.6mg tab GT PRN (21:00)
[2018-08-18] MEDS: Tamsulosin 0.4mg cap ORAL SCH (21:00)
[2018-08-18] MEDS: Sennosides 8.6mg tab GT SCH (21:00)
[2018-08-18] MEDS ORDERED: Vancomycin 500 MG in D5W 110 ML IVPB SCH (22:00)
[2018-08-19] VITALS: BP 122/89
[2018-08-19] MEDS: Metoprolol Tartrate 10 MG in D5W 55 ML IVPB SCH ×5 (01:04→17:56)
[2018-08-19] MEDS: D5 1/2NS w/KCl 20mEq 1,000 ML IV SCH ×3 (01:04→21:59)
[2018-08-19 04:00] VITALS: BP 136/87
--- NOTE | 2018-08-19 04:31 | NUR ---
NURSE NOTES: Patient is asleep lying semi-sena's; resting comfortably. No signs of acute distress or pain noted at this time.
--- NOTE | 2018-08-19 07:30 | NUR ---
NURSE NOTES: Received report from Celina CHOPRA. Pt awake, alert, oriented, however nonverbal. Pt is able to comprehend communication, and responds with facial expression and left upper extremity movement. No signs/symptoms of pain or any other discomfort noted. Pt is on room air, with sP02 at 97%. IV access on left hand #24G, infusing D5 0.45%NS with [id number] at 75/hour. Dressing on previous GT site (GT was removed on 08/17/18), small amount of drainage noted, site is covered with 4x4 gauze and abdominal pad. Also dressing on right foot. Will change dressings as needed. Lynn catheter 16F in place, draining clear/yellow urine. Pt is NPO, awaiting for poss PEG placement tomorrow pending successful closure of current GT-surgical site. Pt is placed on seizure, aspiration and fall precautions. Head of bed at 30degrees, side rails padded, bed-height in lowest position, three side rails up, brakes engaged, alarm on.
--- NOTE | 2018-08-19 07:39 | NUR ---
HAND-OFF: Report given to NAV Nelson. Patient is awake lying semi-sena's; resting comfortably. In stable condition. No seizure activity noted throughout shift. Endorsed to oncoming shift RN regarding patient's PICC line procedure later today; verbalized understanding.
[2018-08-19 08:00] VITALS: BP 140/100
[2018-08-19] MEDS ORDERED: Lidocaine 1% Plain 30 ml INJ PRN (08:12)
[2018-08-19] MEDS ORDERED: Heparin1,000 units/500ml Premix(Conc:2 units/ml) IV PRN (08:15)
[2018-08-19] MEDS: Lisinopril 20mg tab GT SCH ×2 (09:00→17:50)
[2018-08-19] MEDS: Sodium Chloride 1gm Tab GT SCH ×2 (09:00→20:16)
[2018-08-19] MEDS: Tums 500mg GT SCH (09:00)
[2018-08-19] MEDS: Docusate 100mg/10ml Liq NG SCH (09:00)
[2018-08-19] MEDS: Miralax 17gm pkt GT SCH (09:00)
[2018-08-19] MEDS: Zinc Oxide Oint 2oz TOPIC SCH ×2 (10:27→17:56)
--- NOTE | 2018-08-19 10:44 | Diagnostic Imaging Report ---
Indications: Needs long-term IV access Technique: Ultrasound confirms patent compressible left basilic vein. Total sterile technique, including sterile probe cover and sterile gel, hat, mask, sterile gown, large sterile drape, and preparation with 2% chlorhexidine utilized. Local anesthesia with 1% lidocaine. Under real-time ultrasound guidance, puncture basilic vein using 21-gauge needle, documented and archived, passage 0.018 guidewire under direct fluoroscopy, which was used to determine appropriate catheter length, exchange for 5 Serbian peel-away sheath. 5 Serbian Bard dual-lumen power PICC cut to 40 cm. It was inserted through the peel-away sheath. Peel-away sheath and guidewire removed. Catheter fixed to the skin. Both catheter ports aspirated and flushed. Patient tolerated procedure well, without immediate complication. Digital radiograph documents satisfactory catheter tip position, at the cavoatrial junction. Total fluoroscopy time 31 seconds . Total dose area product 4.13 mGy Total number of images: 1 Impression: Successful placement of left arm PICC under sonographic and fluoroscopic guidance, as described above.
--- NOTE | 2018-08-19 10:54 | GI Progress Note ---
Assessment/Plan Problems: (1) G-tube replacement (2) Malfunction of gastrostomy tube ICD Codes: K94.23 - Gastrostomy malfunction SNOMED: 054530243 (3) Abdominal wall cellulitis ICD Codes: L03.311 - Cellulitis of abdominal wall SNOMED: 36721971 (4) Cellulitis ICD Codes: L03.90 - Cellulitis SNOMED: 920950241 (5) Abdominal distension ICD Codes: R14.0 - Abdominal distension (gaseous) SNOMED: 02502786 (6) PEG (percutaneous endoscopic gastrostomy) adjustment/replacement/removal ICD Codes: Z43.1 - Encounter for attention to gastrostomy SNOMED: 636296211, 340705923 Status: unchanged Status Narrative Discussed with Dr. Parra. Assessment/Plan attempt for JT placement failed GT is now closing plan new PEG placement on Sunday zinc oxide ivf for now The patient was seen and examined at bedside and all new and available data was reviewed in the patients chart. I agree with the above findings, impression and plan. (Patient seen earlier today. Signature stamp does not reflect patient encounter time.). - Homar Parra MD Subjective Subjective limited Objective Last 24 Hour Vital Signs Date Time Temp Pulse Resp B/P (MAP) Pulse Ox O2 Delivery O2 Flow Rate FiO2 08/19/18 05:42 73 136/87 08/19/18 04:00 97.9 85 20 136/87 (103) 97 08/19/18 04:00 73 08/19/18 01:04 81 122/89 08/19/18 00:00 86 08/19/18 00:00 98.2 81 20 122/89 (100) 98 08/18/18 21:00 Room Air 08/18/18 20:00 98.3 83 20 124/87 (99) 99 08/18/18 20:00 73 08/18/18 18:13 98 149/97 08/18/18 16:00 100 08/18/18 16:00 99.0 98 18 149/97 (114) 98 08/18/18 12:05 117 137/97 08/18/18 12:00 99.0 123 16 153/110 (124) 98 08/18/18 12:00 119 Intake and Output 08/18/18 08/19/18 18:59 06:59 Intake Total 75 ml 1235 ml Output Total 450 ml 450 ml Balance -375 ml 785 ml IV Total 75 ml 1235 ml Output Urine Total 450 ml 450 ml Height (Feet): 5 Height (Inches): 5.00 Weight (Pounds): 138 General Appearance: WD/WN, no apparent distress, alert Cardiovascular: normal rate Respiratory/Chest: normal breath sounds, no respiratory distress Abdominal Exam: normal bowel sounds, non tender, soft Extremities: non-tender Raudel Joyce NP Aug 19, 2018 10:54
[2018-08-19 11:29] LABS: BASOPHILS % (AUTO) 1.9 % (0.0-2.0); EOSINOPHILS % (AUTO) 9.2 % (0.0-3.0); HEMATOCRIT 40.2 % (42.0-52.0); HEMOGLOBIN 13.4 G/DL (14.2-18.0); LYMPHOCYTES % (AUTO) 19.5 % (20.0-45.0); MEAN CORPUSCULAR VOLUME 89 FL (80-99); MONOCYTES % (AUTO) 14.8 % (1.0-10.0); NEUTROPHILS % (AUTO) 54.6 % (45.0-75.0); PLATELET COUNT 251 K/UL (150-450); RED BLOOD COUNT 4.49 M/UL (4.70-6.10); RED CELL DISTRIBUTION WIDTH 14.1 % (11.6-14.8)
[2018-08-19 12:00] VITALS: BP 166/98
--- NOTE | 2018-08-19 12:09 | Infectious Diseases Prog Note ---
Assessment/Plan Assessment/Plan ASSESSMENT AND PLAN: 1. abdominal wall cellulitis, esbl e.coli g-tube infection, fungal wound culture likely contaminant - vancomycin meropenem x 2 days - lotrimin cream for possible fungal rash abdominal wall started - cellulitis clinically improved, less redness - monitor labs - g-tube changed - continue treatment per Dr. Oquendo and GI 2. The patient has dysphagia and G-tube - s/p egd 3. Hypertension. Blood pressure treatment per Dr. Oquendo. 4. CVA. 5. Right hemiparesis. 6. Cerebral hemorrhage. 7. Expressive aphasia. 8. Seizure disorder. 9. COPD. 10. Coronary artery disease. 11. Skin care protocol. 12. No known drug allergies. 13. Social history negative. 14. Family history noncontributory. 15. MAR was noted. 16. Case discussed with RN. 17. Continue treatment per primary consultants. 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, vre colonization Subjective Constitutional: Denies: fever HEENT: Denies: congestion Respiratory: Denies: shortness of breath Cardiovascular: Denies: chest pain Gastrointestinal/Abdominal: Denies: nausea, vomiting, diarrhea Genitourinary: Reports: other - + quiles Neurologic: Denies: headache, numbness Psychiatric: Denies: depression Skin: Denies: rash Hematologic: Denies: bleeding Musculoskeletal: Denies: pain Allergies: Coded Allergies: NO KNOWN ALLERGIES (Unverified Allergy, Unknown, 03/02/15) Objective Vital Signs Last 24 Hour Vital Signs Date Time Temp Pulse Resp B/P (MAP) Pulse Ox O2 Delivery O2 Flow Rate FiO2 08/19/18 05:42 73 136/87 08/19/18 04:00 97.9 85 20 136/87 (103) 97 08/19/18 04:00 73 08/19/18 01:04 81 122/89 08/19/18 00:00 86 08/19/18 00:00 98.2 81 20 122/89 (100) 98 08/18/18 21:00 Room Air 08/18/18 20:00 98.3 83 20 124/87 (99) 99 08/18/18 20:00 73 08/18/18 18:13 98 149/97 08/18/18 16:00 100 08/18/18 16:00 99.0 98 18 149/97 (114) 98 Height (Feet): 5 Height (Inches): 5.00 Weight (Pounds): 138 General Appearance: no acute distress HEENT: normocephalic, atraumatic, anicteric, mucous membranes moist Respiratory/Chest: lungs clear, normal breath sounds, no respiratory distress, no accessory muscle use Cardiovascular: normal rate, regular rhythm, no gallop/murmur, no JVD Abdomen: soft, non tender, no organomegaly, non distended Genitourinary: other - no quiles Extremities: no cyanosis Skin: no rash Neurologic/Psychiatric: recreation adviser II-XII grossly normal, alert, responsive Lymphatic: no neck adenopathy Musculoskeletal: no effusion Objective Comparison: 08/13/2018 KUB - Single view of the abdomen obtained Findings: Bowel gas pattern is nonspecific. There is contrast material within portions of the colon. Gastrostomy tube is present. There is diffuse ankylosis of the visualized spine. There is also apparent fusion of the sacroiliac joints. IMPRESSION: Nonspecific bowel gas Microbiology Date/Time Source Procedure Growth Status 08/11/18 13:00 Blood Blood Culture - Final NO GROWTH AFTER 5 DAYS Complete 08/12/18 21:00 Wound Gram Stain - Final Complete 08/12/18 21:00 Wound Culture - Final Escherichia Coli - Esbl Debi Albicans Debi Tropicalis Complete 08/11/18 15:30 Nasal Nares MRSA Culture - Final Staphylococcus Aureus - Mrsa Complete 08/11/18 15:30 Rectum VRE Culture - Final Enterococcus Faecalis - Vre Complete 08/11/18 15:30 Rectum - Final NO CARBAPENEM-RESISTANT ENTEROBACTERI... Complete Laboratory Tests Test 08/19/18 11:00 White Blood Count 4.0 K/UL (4.8-10.8) L Red Blood Count 4.49 M/UL (4.70-6.10) L Hemoglobin 13.4 G/DL (14.2-18.0) L Hematocrit 40.2 % (42.0-52.0) L Mean Corpuscular Volume 89 FL (80-99) Mean Corpuscular Hemoglobin 29.8 PG (27.0-31.0) Mean Corpuscular Hemoglobin Concent 33.4 G/DL (32.0-36.0) Red Cell Distribution Width 14.1 % (11.6-14.8) Platelet Count 251 K/UL (150-450) Mean Platelet Volume 6.8 FL (6.5-10.1) Neutrophils (%) (Auto) 54.6 % (45.0-75.0) Lymphocytes (%) (Auto) 19.5 % (20.0-45.0) L Monocytes (%) (Auto) 14.8 % (1.0-10.0) H Eosinophils (%) (Auto) 9.2 % (0.0-3.0) H Basophils (%) (Auto) 1.9 % (0.0-2.0) Vancomycin Level Trough 9.5 ug/mL (5.0-12.0) Current Medications Medications (Trade) Dose Ordered Sig/Kehinde Route PRN Reason Start Time Stop Time Status Last Admin Dose Admin Amlodipine Besylate (Norvasc) 10 mg DAILY GT 08/19/18 09:00 09/12/18 10:59 Calcium Carbonate (Tums) 500 mg DAILY GT 08/19/18 09:00 09/11/18 08:59 Chlorhexidine Gluconate (Ivett-Hex 2%) 1 applic DAILY@2000 TOPIC 08/18/18 20:00 09/16/18 19:59 Clonidine HCl (Catapres TTS-3) 1 patch QWEEK TDERMAL 08/24/18 15:00 09/16/18 14:59 Clonidine HCl (Catapres tab) 0.2 mg Q4H PRN GT SBP > 170mmHg 08/18/18 12:00 09/10/18 11:59 Clotrimazole (Lotrimin) 1 applic Q12HR TOPIC 08/18/18 21:00 09/17/18 20:59 08/19/18 10:27 Dextrose/ Electrolytes 1,000 ml @ 75 mls/hr [id number] IV 08/18/18 11:30 09/17/18 11:29 08/19/18 01:04 Docusate Sodium (Colace) 100 mg DAILY NG 08/19/18 09:00 09/11/18 08:59 Finasteride (Proscar) 5 mg DAILY ORAL 08/19/18 09:00 09/11/18 08:59 Heparin Sodium/ Sodium Chloride (Heparin 1000 units/500ml Premix) 1,000 unit ONCE PRN IV LINE 08/19/18 08:15 08/19/18 23:59 Lansoprazole (Prevacid) 30 mg DAILY GT 08/19/18 09:00 09/11/18 08:59 Lidocaine HCl (Xylocaine 1% 30ml) 30 ml ONCE PRN INJ linee 08/19/18 08:12 08/19/18 23:59 Lisinopril (Prinivil) 20 mg BID GT 08/18/18 18:00 09/11/18 08:59 Meropenem 1 gm/ Sodium Chloride 100 ml @ 200 mls/hr Q8HR IVPB 08/18/18 14:00 08/21/18 05:59 08/19/18 07:30 Metoprolol Tartrate 10 mg/ Dextrose 65 ml @ 130 mls/hr Q6HR IVPB 08/18/18 12:00 09/17/18 11:59 08/19/18 05:42 Ondansetron HCl (Zofran) 4 mg Q6H PRN GT Nausea & Vomiting 08/18/18 12:00 09/10/18 17:59 Polyethylene Glycol (Miralax) 17 gm DAILY GT 08/19/18 09:00 09/11/18 08:59 Potassium Chloride (K-Dur) 20 meq Q12HR GT 08/18/18 21:00 09/10/18 20:59 Sennosides (Senokot) 8.6 mg BEDTIME GT 08/18/18 21:00 09/10/18 20:59 Sennosides (Senokot) 8.6 mg BEDTIME PRN GT Constipation 08/18/18 21:00 09/10/18 17:59 Simethicone (Mylicon) 80 mg Q8H PRN GT Abdominal cramps 08/18/18 12:00 09/13/18 11:59 Sodium Chloride (NaCl) 1 gm Q12HR GT 08/18/18 21:00 09/10/18 20:59 Tamsulosin HCl (Flomax) 0.4 mg BEDTIME ORAL 08/18/18 21:00 09/10/18 20:59 Vancomycin HCl (Vanco rx to dose) 1 ea DAILY PRN MISC Per rx protocol 08/18/18 11:00 09/17/18 10:59 Vancomycin HCl 500 mg/Dextrose 110 ml @ 110 mls/hr Q12H IVPB 08/18/18 22:00 08/22/18 21:59 08/18/18 23:40 Zinc Oxide (Zinc Oxide) 1 applic TWICE A DAY TOPIC 08/18/18 18:00 09/12/18 08:59 08/19/18 10:27 Rodriguez Hawthorne MD Aug 19, 2018 12:09
[2018-08-19] MEDS: Morphine Sulfate 2mg/ml Inj(IV/IM USE ONLY) IVP PRN ×2 (13:10→17:56)
[2018-08-19] MEDS: Vancomycin 500 MG in D5W 110 ML IVPB SCH (13:11)
--- NOTE | 2018-08-19 13:38 | General Progress Note ---
Assessment/Plan Assessment/Plan G-tube cellulitis, improved malfunctioning G-tube history of seizure history of intracranial hemorrhage with right hemiparesis, expressive aphasia hypertension, fair control coronary artery disease Abx per ID GT site less leakage GT is now closing plan new PEG placement on Sunday zinc oxide cont IVF, no feeds K replacement IV BP rx, catapres topical Subjective ROS Limited/Unobtainable: Yes Allergies: Coded Allergies: NO KNOWN ALLERGIES (Unverified Allergy, Unknown, 03/02/15) Objective Last 24 Hour Vital Signs Date Time Temp Pulse Resp B/P (MAP) Pulse Ox O2 Delivery O2 Flow Rate FiO2 08/19/18 12:55 73 166/98 08/19/18 05:42 73 136/87 08/19/18 04:00 97.9 85 20 136/87 (103) 97 08/19/18 04:00 73 08/19/18 01:04 81 122/89 08/19/18 00:00 86 08/19/18 00:00 98.2 81 20 122/89 (100) 98 08/18/18 21:00 Room Air 08/18/18 20:00 98.3 83 20 124/87 (99) 99 08/18/18 20:00 73 08/18/18 18:13 98 149/97 08/18/18 16:00 100 08/18/18 16:00 99.0 98 18 149/97 (114) 98 Intake and Output 08/18/18 08/19/18 18:59 06:59 Intake Total 75 ml 1235 ml Output Total 450 ml 450 ml Balance -375 ml 785 ml IV Total 75 ml 1235 ml Output Urine Total 450 ml 450 ml Laboratory Tests 08/19/18 11:00: White Blood Count 4.0L, Red Blood Count 4.49L, Hemoglobin 13.4L, Hematocrit 40.2L, Mean Corpuscular Volume 89, Mean Corpuscular Hemoglobin 29.8, Mean Corpuscular Hemoglobin Concent 33.4, Red Cell Distribution Width 14.1, Platelet Count 251, Mean Platelet Volume 6.8, Neutrophils (%) (Auto) 54.6, Lymphocytes (% ) (Auto) 19.5L, Monocytes (%) (Auto) 14.8H, Eosinophils (%) (Auto) 9.2H, Basophils (%) (Auto) 1.9, Vancomycin Level Trough 9.5 Height (Feet): 5 Height (Inches): 5.00 Weight (Pounds): 138 General Appearance: no apparent distress Neck: supple Cardiovascular: normal rate Respiratory/Chest: lungs clear Jose J Oquendo MD Aug 19, 2018 13:38
[2018-08-19 16:00] VITALS: BP 176/99
--- NOTE | 2018-08-19 17:00 | NUR ---
NURSE NOTES: Pt was placed on overlay mattress to prevent pressure ulcer.
--- NOTE | 2018-08-19 17:39 | NUR ---
NURSE NOTES: Received report from Celina CHOPRA. Pt awake, alert, oriented, however nonverbal. Pt is able to comprehend communication, and responds with facial expression and left upper extremity movement. No signs/symptoms of pain or any other discomfort noted. Pt is on room air, with sP02 at 97%. IV access on left hand #24G, infusing D5 0.45%NS with [id number] at 75/hour. Dressing on previous GT site (GT was removed on 08/17/18), small amount of drainage noted, site is covered with 4x4 gauze and abdominal pad. Also dressing on right foot. Will change dressings as needed. Lynn catheter 16F in place, draining clear/yellow urine. Pt is NPO, awaiting for poss PEG placement tomorrow pending successful closure of current GT-surgical site. Pt is placed on seizure, aspiration and fall precautions. Head of bed at 30degrees, side rails padded, bed-height in lowest position, three side rails up, brakes engaged, alarm on. Addendum: 08/19/18 at 1858 by DELILAH BARNETT RN CORRECTION TO PREVIOUS NOTE: note is duplication from 0730.
--- NOTE | 2018-08-19 19:48 | NUR ---
HAND-OFF: Report given to Celina CHOPRA. Pt is resting in bed in stable condition. Endorsed plan of care.
--- NOTE | 2018-08-19 19:58 | NUR ---
NURSE NOTES: Received report from NAV Nelson. Patient is asleep lying semi-sena's; resting comfortably. Arousable to verbal and tactile stimuli. No signs of acute distress noted; denies pain at this time. AOx2-3; able to follow commands. Aphasic. Patient on strict NPO. Checked left upper arem PICC, lines, and IV rate; patent and running. No erythema, bleeding, or infiltration noted. Wound dressing on abdomen dry and intact. Lynn catheter draining well to gravity. Bed at lowest position, brakes on, siderails up x3. Siderails padded following seizure precautions. Suction at bedside. Call light within reach. Will continue to monitor.
[2018-08-19 20:00] VITALS: BP 160/107
[2018-08-19] MEDS: Sennosides 8.6mg tab GT SCH (20:16)
[2018-08-19] MEDS: Tamsulosin 0.4mg cap ORAL SCH (20:17)
[2018-08-19] MEDS: Dyna-Hex 2% Top Sol 2oz TOPIC SCH (21:45)
[2018-08-20] VITALS: BP 153/100
[2018-08-20] MEDS: Metoprolol Tartrate 10 MG in D5W 55 ML IVPB SCH ×4 (00:52→18:51)
[2018-08-20] MEDS: Vancomycin 500 MG in D5W 110 ML IVPB SCH ×2 (02:06→13:37)
[2018-08-20 04:00] VITALS: BP 148/95
--- NOTE | 2018-08-20 04:41 | NUR ---
NURSE NOTES: Patient is awake lying semi-sena's; resting comfortably. No signs of acute distress noted; complains of pain. Addendum: 08/20/18 at 0441 by SIRENA CRESPO RN RN Wrong patient.
--- NOTE | 2018-08-20 04:42 | NUR ---
NURSE NOTES: Patient is asleep lying semi-sena's; resting comfortably. No signs of acute distress or pain noted at this time.
[2018-08-20 07:10] LABS: BASOPHILS % (AUTO) 1.7 % (0.0-2.0); EOSINOPHILS % (AUTO) 4.3 % (0.0-3.0); HEMATOCRIT 39.8 % (42.0-52.0); HEMOGLOBIN 13.2 G/DL (14.2-18.0); LYMPHOCYTES % (AUTO) 15.9 % (20.0-45.0); MEAN CORPUSCULAR VOLUME 89 FL (80-99); MONOCYTES % (AUTO) 12.3 % (1.0-10.0); NEUTROPHILS % (AUTO) 65.8 % (45.0-75.0); PLATELET COUNT 242 K/UL (150-450); RED BLOOD COUNT 4.45 M/UL (4.70-6.10); RED CELL DISTRIBUTION WIDTH 13.8 % (11.6-14.8); WHITE BLOOD COUNT 5.8 K/UL (4.8-10.8)
[2018-08-20 07:12] LABS: ANION GAP 5 mmol/L (5-15); BLOOD UREA NITROGEN 4 mg/dL (7-18); CALCIUM 8.6 MG/DL (8.5-10.1); CARBON DIOXIDE 26 MMOL/L (21-32); CHLORIDE 99 MMOL/L (98-107); CREATININE 0.6 MG/DL (0.55-1.30); POTASSIUM 3.7 MMOL/L (3.5-5.1); SODIUM 130 MMOL/L (136-145)
--- NOTE | 2018-08-20 07:24 | NUR ---
HAND-OFF: Report given to NAV Knutson. Patient is asleep lying semi-sena's; resting comfortably. In stable condition. Endorsed to oncoming RN regarding patient's pending EGD procedure later today; verbalized understanding.
--- NOTE | 2018-08-20 07:33 | Pre-Procedure Note/Attestation ---
Pre-Procedure Note/Attestation Complete Prior to Procedure Planned Procedure: not applicable Procedure Narrative: egd/peg Indications for Procedure Pre-Operative Diagnosis: GT leak Attestation I attest that I discussed the nature of the procedure; its benefits; risks and complications; and alternatives (and the risks and benefits of such alternatives ), prior to the procedure, with the patient (or the patient's legal scheduling representative). I attest that, if there was a reasonable possibility of needing a blood transfusion, the patient (or the patient's legal scheduling representative) was given the [facility] standardized written summary, pursuant to the [employer] Blood Safety Act ([place] Health and Safety Code # 1645, as amended). I attest that I re-evaluated the patient just prior to the surgery and that there has been no change in the patient's H&P, except as documented below: Homar Parra MD Aug 20, 2018 07:33
[2018-08-20 08:00] VITALS: BP 174/109
--- NOTE | 2018-08-20 08:01 | NUR ---
NURSE NOTES: Received report from NAV Mendez. Patient is asleep lying semi-sena's; resting comfortably. Arousable to verbal and tactile stimuli. No signs of acute distress noted; denies pain at this time. AAOx2; able to follow commands. Aphasic. Patient on strict NPO. Checked left upper arm PICC, lines, and IV rate; patent and running. No erythema, bleeding, or infiltration noted. Wound dressing on abdomen dry and intact. Lynn catheter draining well to gravity. Bed at lowest position, brakes on, siderails up x3. Siderails padded following seizure precautions. Suction at bedside. Call light within reach. Will continue to monitor.
[2018-08-20] MEDS: Miralax 17gm pkt GT SCH (08:31)
[2018-08-20] MEDS: Tums 500mg GT SCH (08:32)
[2018-08-20] MEDS: Docusate 100mg/10ml Liq NG SCH (08:32)
[2018-08-20] MEDS: Sodium Chloride 1gm Tab GT SCH ×2 (08:32→20:33)
[2018-08-20] MEDS: Lisinopril 20mg tab GT SCH ×2 (08:32→18:00)
[2018-08-20] MEDS ORDERED: D5 1/2NS w/KCl 20mEq 1,000 ML IV SCH (09:23)
[2018-08-20] MEDS ORDERED: Metoprolol Tartrate 10 MG in D5W 55 ML IVPB ONE (09:30)
--- NOTE | 2018-08-20 09:30 | NUR ---
NURSE NOTES: @9:30am: Spoke to Dr. Oquendo about sodium 130, elevated blood pressure of 174/109. Received orders.
--- NOTE | 2018-08-20 10:00 | NUR ---
NURSE NOTES: Spoke to GI lab about patient have Caroline gonzalez/nica Will be assessed downstairs.
[2018-08-20] MEDS ORDERED: Lidocaine 1% Plain 30 ml INJ ONE (10:30)
[2018-08-20] MEDS ORDERED: NS 500ML IVPB ONE (10:50)
[2018-08-20] MEDS ORDERED: Atropine Inj 1mg/10ml Syr IV PRN (11:15)
[2018-08-20] MEDS ORDERED: fentaNYL 100 mcg/2 mL IV PRN (11:15)
[2018-08-20] MEDS ORDERED: DiphenhydrAMINE 50mg/ml Inj IVP PRN (11:15)
[2018-08-20] MEDS ORDERED: Midazolam 2mg/2ml Inj IVP PRN (11:15)
--- NOTE | 2018-08-20 11:23 | General Progress Note ---
Assessment/Plan Problem List: (1) G-tube replacement (2) Malfunction of gastrostomy tube ICD Codes: K94.23 - Gastrostomy malfunction SNOMED: 827432695 (3) Abdominal distension ICD Codes: R14.0 - Abdominal distension (gaseous) SNOMED: 90193500 (4) HTN (hypertension) ICD Codes: I10 - Essential (primary) hypertension SNOMED: 02770219 Assessment/Plan attempt for JT placement failed GT is now closing plan new PEG placement for tomorrow today the procedure was canceled due to tachycardia, hypertension and labored breathing zinc oxide ivf for now Subjective ROS Limited/Unobtainable: No Allergies: Coded Allergies: NO KNOWN ALLERGIES (Unverified Allergy, Unknown, 03/02/15) Objective Last 24 Hour Vital Signs Date Time Temp Pulse Resp B/P (MAP) Pulse Ox O2 Delivery O2 Flow Rate FiO2 08/20/18 08:00 97.4 76 18 174/109 (130) 98 08/20/18 06:24 93 148/95 08/20/18 04:00 79 08/20/18 04:00 97.5 93 19 148/95 (112) 99 08/20/18 00:52 94 153/100 08/20/18 00:00 97.3 94 18 153/100 (117) 98 08/20/18 00:00 71 08/19/18 21:00 Room Air 08/19/18 20:00 69 08/19/18 20:00 97.4 87 20 160/107 (124) 98 08/19/18 18:26 98.5 08/19/18 17:56 76 176/99 08/19/18 16:00 98.5 96 16 176/99 (124) 99 08/19/18 16:00 76 08/19/18 12:55 73 166/98 08/19/18 12:00 74 08/19/18 12:00 97.5 67 18 166/98 (120) 98 Intake and Output 08/19/18 08/20/18 18:59 06:59 Intake Total 75 ml 1265 ml Output Total 2000 ml Balance -1925 ml 1265 ml IV Total 75 ml 1265 ml Output Urine Total 2000 ml Laboratory Tests 08/20/18 05:00: White Blood Count 5.8, Red Blood Count 4.45L, Hemoglobin 13.2L, Hematocrit 39.8L , Mean Corpuscular Volume 89, Mean Corpuscular Hemoglobin 29.7, Mean Corpuscular Hemoglobin Concent 33.1, Red Cell Distribution Width 13.8, Platelet Count 242, Mean Platelet Volume 6.7, Neutrophils (%) (Auto) 65.8, Lymphocytes (% ) (Auto) 15.9L, Monocytes (%) (Auto) 12.3H, Eosinophils (%) (Auto) 4.3H, Basophils (%) (Auto) 1.7, Prothrombin Time 10.9, Prothromb Time International Ratio 1.0, Activated Partial Thromboplast Time 35H, Sodium Level 130L, Potassium Level 3.7, Chloride Level 99, Carbon Dioxide Level 26, Anion Gap 5, Blood Urea Nitrogen 4L, Creatinine 0.6, Estimat Glomerular Filtration Rate > 60 , Glucose Level 116H, Calcium Level 8.6 Height (Feet): 5 Height (Inches): 5.00 Weight (Pounds): 162 General Appearance: no apparent distress EENT: normal ENT inspection Neck: supple Cardiovascular: tachycardia Respiratory/Chest: decreased breath sounds Abdomen: soft, decreased bowel sounds, distended Extremities: non-tender Homar Parra MD Aug 20, 2018 11:23
--- NOTE | 2018-08-20 11:33 | General Progress Note ---
Assessment/Plan Assessment/Plan G-tube cellulitis, improved malfunctioning G-tube history of seizure history of intracranial hemorrhage with right hemiparesis, expressive aphasia hypertension, fair control coronary artery disease BP high and some resp distress when EGD attempted unable to control BP well without enteral meds NGT placed by GI and will resume meds Abx per ID GT site less leakage GT is now closing plan new PEG placement when BP controlled zinc oxide cont IVF, no feeds adjust IV for low Na NGT BP rx, catapres topical Subjective ROS Limited/Unobtainable: Yes Allergies: Coded Allergies: NO KNOWN ALLERGIES (Unverified Allergy, Unknown, 03/02/15) Objective Last 24 Hour Vital Signs Date Time Temp Pulse Resp B/P (MAP) Pulse Ox O2 Delivery O2 Flow Rate FiO2 08/20/18 08:00 97.4 76 18 174/109 (130) 98 08/20/18 06:24 93 148/95 08/20/18 04:00 79 08/20/18 04:00 97.5 93 19 148/95 (112) 99 08/20/18 00:52 94 153/100 08/20/18 00:00 97.3 94 18 153/100 (117) 98 08/20/18 00:00 71 08/19/18 21:00 Room Air 08/19/18 20:00 69 08/19/18 20:00 97.4 87 20 160/107 (124) 98 08/19/18 18:26 98.5 08/19/18 17:56 76 176/99 08/19/18 16:00 98.5 96 16 176/99 (124) 99 08/19/18 16:00 76 08/19/18 12:55 73 166/98 08/19/18 12:00 74 08/19/18 12:00 97.5 67 18 166/98 (120) 98 Intake and Output 08/19/18 08/20/18 18:59 06:59 Intake Total 75 ml 1265 ml Output Total 2000 ml Balance -1925 ml 1265 ml IV Total 75 ml 1265 ml Output Urine Total 2000 ml Laboratory Tests 08/20/18 05:00: White Blood Count 5.8, Red Blood Count 4.45L, Hemoglobin 13.2L, Hematocrit 39.8L , Mean Corpuscular Volume 89, Mean Corpuscular Hemoglobin 29.7, Mean Corpuscular Hemoglobin Concent 33.1, Red Cell Distribution Width 13.8, Platelet Count 242, Mean Platelet Volume 6.7, Neutrophils (%) (Auto) 65.8, Lymphocytes (% ) (Auto) 15.9L, Monocytes (%) (Auto) 12.3H, Eosinophils (%) (Auto) 4.3H, Basophils (%) (Auto) 1.7, Prothrombin Time 10.9, Prothromb Time International Ratio 1.0, Activated Partial Thromboplast Time 35H, Sodium Level 130L, Potassium Level 3.7, Chloride Level 99, Carbon Dioxide Level 26, Anion Gap 5, Blood Urea Nitrogen 4L, Creatinine 0.6, Estimat Glomerular Filtration Rate > 60 , Glucose Level 116H, Calcium Level 8.6 Height (Feet): 5 Height (Inches): 5.00 Weight (Pounds): 162 General Appearance: no apparent distress Cardiovascular: normal rate Jose J Oquendo MD Aug 20, 2018 11:33
--- NOTE | 2018-08-20 11:34 | Anethesia Preoperative Eval ---
Anesthesia Pre-op PMH/ROS General Date of Evaluation: Aug 20, 2018 Time of Evaluation: 10:26 Anesthesiologist: conrad ASA Score: ASA 4 Mallampati Score Class I : Soft palate, uvula, fauces, pillars visible Class II: Soft palate, uvula, fauces visible Class III: Soft palate, base of uvula visible Class IV: Only hard plate visible Mallampati Classification: Class III Surgeon: celina Diagnosis: anemia Surgical Procedure: peg Anesthesia History: none Family History: no anesthesia problems Allergies: Coded Allergies: NO KNOWN ALLERGIES (Unverified Allergy, Unknown, 03/02/15) Medications: see eMAR Patient NPO?: Yes NPO Date: Aug 16, 2018 Past Medical History Cardiovascular: Reports: HTN, CAD, arrhythmia - atrial fibrillation, sinus tachycardia, other - atherosclerotic heart disease, Pulmonary: Reports: COPD, other - tracheostomy (closed) Gastrointestinal/Genitourinary: Reports: GERD, other - gi bleed Neurologic/Psychiatric: Reports: CVA, other HEENT: Reports: cataract (L), cataract (R) Hematology/Immune: Reports: anemia Musculoskeletal/Integumentary: Reports: OA Anesthesia Pre-op Phys. Exam Physician Exam Last Vital Signs Date Time Temp Pulse Resp B/P (MAP) Pulse Ox O2 Delivery O2 Flow Rate FiO2 08/20/18 08:00 97.4 76 18 174/109 (130) 98 08/19/18 21:00 Room Air 08/16/18 15:15 3 08/16/18 08:28 21 Constitutional: NAD Neurologic: other - cva with ride sided weakness Cardiovascular: other - tachycardia Respiratory: other - tachypneia using abdominal muscles and accessory muscles Gastrointestinal: other - distended, abdominal wall cellulitis Airway Exam Mallampati Score: Class III MO: limited Neck: flexible TMD: 2fb ROM: limited - contracture right upper extremity Teeth: missing Anesthesia Pre-op A/P Labs Hematology Test 08/20/18 05:00 White Blood Count 5.8 K/UL (4.8-10.8) Red Blood Count 4.45 M/UL (4.70-6.10) L Hemoglobin 13.2 G/DL (14.2-18.0) L Hematocrit 39.8 % (42.0-52.0) L Mean Corpuscular Volume 89 FL (80-99) Mean Corpuscular Hemoglobin 29.7 PG (27.0-31.0) Mean Corpuscular Hemoglobin Concent 33.1 G/DL (32.0-36.0) Red Cell Distribution Width 13.8 % (11.6-14.8) Platelet Count 242 K/UL (150-450) Mean Platelet Volume 6.7 FL (6.5-10.1) Neutrophils (%) (Auto) 65.8 % (45.0-75.0) Lymphocytes (%) (Auto) 15.9 % (20.0-45.0) L Monocytes (%) (Auto) 12.3 % (1.0-10.0) H Eosinophils (%) (Auto) 4.3 % (0.0-3.0) H Basophils (%) (Auto) 1.7 % (0.0-2.0) Coagulation Test 08/20/18 05:00 Prothrombin Time 10.9 SEC (9.30-11.50) Prothromb Time International Ratio 1.0 (0.9-1.1) Activated Partial Thromboplast Time 35 SEC (23-33) H Chemistry Test 08/20/18 05:00 Sodium Level 130 MMOL/L (136-145) L Potassium Level 3.7 MMOL/L (3.5-5.1) Chloride Level 99 MMOL/L (98-107) Carbon Dioxide Level 26 MMOL/L (21-32) Anion Gap 5 mmol/L (5-15) Blood Urea Nitrogen 4 mg/dL (7-18) L Creatinine 0.6 MG/DL (0.55-1.30) Estimat Glomerular Filtration Rate > 60 mL/min (>60) Glucose Level 116 MG/DL (74-106) H Calcium Level 8.6 MG/DL (8.5-10.1) Risk Assessment & Plan Assessment: asa4. patient is tachypneic, using abdominal and accessory muscles, tachycardic with heart rate remaining above 100, and malignant hypertension not responding to hydralazine. ticket writer discussed with drs. bryant and celina Plan: mac when patient's clinical status optimized Status Change Before Surgery: No Pre-Antibiotics Drug: Melodie Olivera MD Aug 20, 2018 11:34
--- NOTE | 2018-08-20 11:39 | NUR ---
NURSE NOTES: Received report from GI lab nurse. Was unsuccessful to put G-tube in. V/s were given. Will call Dr. Oquendo about breathing treatments.
[2018-08-20 12:00] VITALS: BP 170/111
--- NOTE | 2018-08-20 12:06 | NUR ---
RD ASSESSMENT & RECOMMENDATIONS SEE CARE ACTIVITY FOR COMPLETE ASSESSMENT DAILY ESTIMATED NEEDS: Needs based on cardiac, wound 62.7kg 25-30 kcals/kg 5389-7158 total kcals 1.25-1.5 g protein/kg 78-94 g total protein 25-30 mL/kg 3347-0731 total fluid mLs NUTRITION DIAGNOSIS: 1) Swallowing difficulty r/t dysphagia, h/o CVA as evidenced by pt is previously PEG dep, pending GJ tube replacement, NPO at this time. 2) Increased protein needs r/t wound healing as evidenced by R halux pressure injury ENTERAL NUTRITION RECOMMENDATIONS: Jevity 1.2 @ 60ml/hr x 24 hrs to provide 1440ml, 1728kcal, 80g prot, 1162ml free water - As medically able, rec to resume TF - Initiate Jevity 1.2 @ 20ml/hr X 6 hrs, advance 10ml q 4-6 hrs as tolerated to goal rate. - HOB over 30 degrees/ water flush per MD TPN Comment: * CONSULT RD W/ PROLONGED NPO STATUS * ADDITIONAL RECOMMENDATIONS: 1) Calibrated bed scale wt (pt w/ added P200 mattress + pump) 2) Wound care: Add ALIS BID w/ GI access, rec wound eval 3) Monitor lytes, replete as needed 4) Rec TPN w/ anticipated prolonged NPO status .
[2018-08-20] MEDS: Zinc Oxide Oint 2oz TOPIC SCH ×2 (14:06→18:51)
[2018-08-20] MEDS: Albuterol/Ipratropium 3ml neb HHN SCH ×3 (14:29→23:06)
--- NOTE | 2018-08-20 14:30 | NUR ---
NURSE NOTES: NG tube inserted at 14:30. Awaiting CXR for verification.
[2018-08-20 16:00] VITALS: BP 149/65
--- NOTE | 2018-08-20 16:30 | NUR ---
NURSE NOTES: At 70 cm of NG tube, NG tube is patent. Notified Florencio Joyce NP for tube feeding orders. Addendum: 08/20/18 at 1909 by Eamno Goff RN Spoke to Maria Del Carmen HIGGINS. NG tube only for medications order will be entered.
--- NOTE | 2018-08-20 16:53 | Diagnostic Imaging Report ---
Indication: Post nasogastric tube placement Technique: Supine view of the upper abdomen Comparison: 08/17/2018 Findings: Interim placement of a nasogastric tube, tip which projects at the level of the gastric body, proximal port beyond the gastroesophageal junction. Bowel gas pattern is unremarkable. Extensive bilateral pulmonary parenchymal disease is incidentally noted. Impression: Satisfactory nasogastric tube position, suitable for use Other findings as noted
--- NOTE | 2018-08-20 17:19 | Infectious Diseases Prog Note ---
Assessment/Plan Assessment/Plan ASSESSMENT AND PLAN: 1. abdominal wall cellulitis, esbl e.coli g-tube infection, fungal wound culture likely contaminant - vancomycin meropenem x 1 day - lotrimin cream for possible fungal rash abdominal wall started - cellulitis clinically improved, less redness - monitor labs - g-tube changed - continue treatment per Dr. Oquendo and GI 2. The patient has dysphagia and G-tube - s/p egd 3. Hypertension. Blood pressure treatment per Dr. Oquendo. 4. CVA. 5. Right hemiparesis. 6. Cerebral hemorrhage. 7. Expressive aphasia. 8. Seizure disorder. 9. COPD. 10. Coronary artery disease. 11. Skin care protocol. 12. No known drug allergies. 13. Social history negative. 14. Family history noncontributory. 15. MAR was noted. 16. Case discussed with RN. 17. Continue treatment per primary consultants. 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, vre colonization Subjective Constitutional: Denies: fever HEENT: Denies: coryza, congestion Respiratory: Denies: shortness of breath Cardiovascular: Denies: chest pain Gastrointestinal/Abdominal: Denies: nausea, vomiting, diarrhea Genitourinary: Reports: other - + quiles Neurologic: Denies: headache, numbness Psychiatric: Reports: other - na Skin: Denies: rash Hematologic: Denies: bleeding Musculoskeletal: Denies: pain Allergies: Coded Allergies: NO KNOWN ALLERGIES (Unverified Allergy, Unknown, 03/02/15) Objective Vital Signs Last 24 Hour Vital Signs Date Time Temp Pulse Resp B/P (MAP) Pulse Ox O2 Delivery O2 Flow Rate FiO2 08/20/18 14:37 81 22 99 Nasal Cannula 2.0 28 08/20/18 14:33 Nasal Cannula 2.0 28 08/20/18 14:33 98 Nasal Cannula 2.0 28 08/20/18 14:32 84 20 97 Nasal Cannula 2.0 28 08/20/18 13:18 76 174/109 08/20/18 12:38 101 08/20/18 12:00 97.0 112 20 170/111 (130) 100 08/20/18 09:00 Room Air 08/20/18 08:00 97.4 76 18 174/109 (130) 98 08/20/18 07:18 81 08/20/18 06:24 93 148/95 08/20/18 04:00 79 08/20/18 04:00 97.5 93 19 148/95 (112) 99 08/20/18 00:52 94 153/100 08/20/18 00:00 97.3 94 18 153/100 (117) 98 08/20/18 00:00 71 08/19/18 21:00 Room Air 08/19/18 20:00 69 08/19/18 20:00 97.4 87 20 160/107 (124) 98 08/19/18 18:26 98.5 08/19/18 17:56 76 176/99 Height (Feet): 5 Height (Inches): 5.00 Weight (Pounds): 162 General Appearance: no acute distress HEENT: normocephalic, atraumatic, anicteric Respiratory/Chest: lungs clear, normal breath sounds, no respiratory distress, no accessory muscle use Cardiovascular: normal rate, regular rhythm, no gallop/murmur, no JVD Abdomen: normal bowel sounds, soft, non tender, no organomegaly, non distended , distended Genitourinary: other - + quiles - urine slt cloudy Extremities: no cyanosis Skin: no rash Neurologic/Psychiatric: production analyst II-XII grossly normal, alert, oriented x 3, responsive Lymphatic: no neck adenopathy Musculoskeletal: no effusion Objective Comparison: 08/13/2018 KUB - Single view of the abdomen obtained Findings: Bowel gas pattern is nonspecific. There is contrast material within portions of the colon. Gastrostomy tube is present. There is diffuse ankylosis of the visualized spine. There is also apparent fusion of the sacroiliac joints. IMPRESSION: Nonspecific bowel gas Microbiology Date/Time Source Procedure Growth Status 08/11/18 13:00 Blood Blood Culture - Final NO GROWTH AFTER 5 DAYS Complete 08/12/18 21:00 Wound Gram Stain - Final Complete 08/12/18 21:00 Wound Culture - Final Escherichia Coli - Esbl Debi Albicans Debi Tropicalis Complete 08/11/18 15:30 Nasal Nares MRSA Culture - Final Staphylococcus Aureus - Mrsa Complete 08/11/18 15:30 Rectum VRE Culture - Final Enterococcus Faecalis - Vre Complete 08/11/18 15:30 Rectum - Final NO CARBAPENEM-RESISTANT ENTEROBACTERI... Complete Laboratory Tests Test 08/20/18 05:00 White Blood Count 5.8 K/UL (4.8-10.8) Red Blood Count 4.45 M/UL (4.70-6.10) L Hemoglobin 13.2 G/DL (14.2-18.0) L Hematocrit 39.8 % (42.0-52.0) L Mean Corpuscular Volume 89 FL (80-99) Mean Corpuscular Hemoglobin 29.7 PG (27.0-31.0) Mean Corpuscular Hemoglobin Concent 33.1 G/DL (32.0-36.0) Red Cell Distribution Width 13.8 % (11.6-14.8) Platelet Count 242 K/UL (150-450) Mean Platelet Volume 6.7 FL (6.5-10.1) Neutrophils (%) (Auto) 65.8 % (45.0-75.0) Lymphocytes (%) (Auto) 15.9 % (20.0-45.0) L Monocytes (%) (Auto) 12.3 % (1.0-10.0) H Eosinophils (%) (Auto) 4.3 % (0.0-3.0) H Basophils (%) (Auto) 1.7 % (0.0-2.0) Prothrombin Time 10.9 SEC (9.30-11.50) Prothromb Time International Ratio 1.0 (0.9-1.1) Activated Partial Thromboplast Time 35 SEC (23-33) H Sodium Level 130 MMOL/L (136-145) L Potassium Level 3.7 MMOL/L (3.5-5.1) Chloride Level 99 MMOL/L (98-107) Carbon Dioxide Level 26 MMOL/L (21-32) Anion Gap 5 mmol/L (5-15) Blood Urea Nitrogen 4 mg/dL (7-18) L Creatinine 0.6 MG/DL (0.55-1.30) Estimat Glomerular Filtration Rate > 60 mL/min (>60) Glucose Level 116 MG/DL (74-106) H Calcium Level 8.6 MG/DL (8.5-10.1) Current Medications Medications (Trade) Dose Ordered Sig/Kehinde Route PRN Reason Start Time Stop Time Status Last Admin Dose Admin Al Hydroxide/Mg Hydroxide (Mylanta) 15 ml Q1H PRN ORAL gi upset 08/20/18 11:15 08/20/18 18:00 Albuterol/ Ipratropium (Albuterol/ Ipratropium) 3 ml Q4HRT HHN 08/20/18 15:00 08/25/18 14:59 08/20/18 14:29 Amlodipine Besylate (Norvasc) 10 mg DAILY GT 08/19/18 09:00 09/12/18 10:59 Atropine Sulfate (Atropine) 0.5 mg Q5M PRN IV bpm less than 45 08/20/18 11:15 08/20/18 18:00 Calcium Carbonate (Tums) 500 mg DAILY GT 08/19/18 09:00 09/11/18 08:59 Chlorhexidine Gluconate (Ivett-Hex 2%) 1 applic DAILY@2000 TOPIC 08/18/18 20:00 09/16/18 19:59 08/19/18 21:45 Clonidine HCl (Catapres TTS-3) 1 patch QWEEK TDERMAL 08/24/18 15:00 09/16/18 14:59 Clonidine HCl (Catapres tab) 0.2 mg Q4H PRN GT SBP > 170mmHg 08/18/18 12:00 09/10/18 11:59 Clotrimazole (Lotrimin) 1 applic Q12HR TOPIC 08/18/18 21:00 09/17/18 20:59 08/20/18 14:06 Dextrose/ Electrolytes 1,000 ml @ 75 mls/hr [id number] IV 08/20/18 11:00 09/19/18 10:59 08/20/18 13:18 Diphenhydramine HCl (Benadryl) 25 mg Q15M PRN IVP Itching 08/20/18 11:15 08/20/18 18:00 Docusate Sodium (Colace) 100 mg DAILY NG 08/19/18 09:00 09/11/18 08:59 Fentanyl Citrate (Sublimaze 100 mcg/2 mL) 25 mcg Q10M PRN IV Moderate Pain (Pain Scale 4-6) 08/20/18 11:15 08/20/18 18:00 Finasteride (Proscar) 5 mg DAILY ORAL 08/19/18 09:00 09/11/18 08:59 Hydralazine HCl (Apresoline) 5 mg Q30M PRN IV SBP>160 OR___/DBP>90 OR___ 08/20/18 11:15 08/20/18 18:00 Lansoprazole (Prevacid) 30 mg DAILY GT 08/19/18 09:00 09/11/18 08:59 Lisinopril (Prinivil) 20 mg BID GT 08/18/18 18:00 09/11/18 08:59 Meropenem 1 gm/ Sodium Chloride 100 ml @ 200 mls/hr Q8HR IVPB 08/18/18 14:00 08/21/18 05:59 08/20/18 15:24 Metoprolol Tartrate 10 mg/ Dextrose 65 ml @ 130 mls/hr ONCE ONCE IVPB 08/20/18 09:30 08/20/18 09:59 UNV Metoprolol Tartrate 10 mg/ Dextrose 65 ml @ 130 mls/hr Q6HR IVPB 08/18/18 12:00 09/17/18 11:59 08/20/18 13:18 Midazolam HCl (Versed 2mg/2ml vial) 1 mg Q15M PRN IVP For Anxiety 08/20/18 11:15 08/20/18 18:00 Morphine Sulfate (Morphine Sulfate) 1 mg Q3H PRN IVP For Pain 08/19/18 12:30 08/26/18 12:29 08/19/18 17:56 Ondansetron HCl (Zofran) 4 mg Q1H PRN IVP Nausea & Vomiting 08/20/18 11:15 08/20/18 18:00 Ondansetron HCl (Zofran) 4 mg Q6H PRN GT Nausea & Vomiting 08/18/18 12:00 09/10/18 17:59 Polyethylene Glycol (Miralax) 17 gm DAILY GT 08/19/18 09:00 09/11/18 08:59 Potassium Chloride (K-Dur) 20 meq Q12HR GT 08/18/18 21:00 09/10/18 20:59 Sennosides (Senokot) 8.6 mg BEDTIME GT 08/18/18 21:00 09/10/18 20:59 Sennosides (Senokot) 8.6 mg BEDTIME PRN GT Constipation 08/18/18 21:00 09/10/18 17:59 Simethicone (Mylicon) 80 mg Q8H PRN GT Abdominal cramps 08/18/18 12:00 09/13/18 11:59 Sodium Chloride (NaCl) 1 gm Q12HR GT 08/18/18 21:00 09/10/18 20:59 Tamsulosin HCl (Flomax) 0.4 mg BEDTIME ORAL 08/18/18 21:00 09/10/18 20:59 Vancomycin HCl (Vanco rx to dose) 1 ea DAILY PRN MISC Per rx protocol 08/18/18 11:00 09/17/18 10:59 Vancomycin HCl 500 mg/Dextrose 110 ml @ 110 mls/hr Q12H IVPB 08/19/18 13:00 08/24/18 12:59 08/20/18 13:37 Zinc Oxide (Zinc Oxide) 1 applic TWICE A DAY TOPIC 08/18/18 18:00 09/12/18 08:59 08/20/18 14:06 Rodriguez Hawthorne MD Aug 20, 2018 17:19
--- NOTE | 2018-08-20 19:45 | NUR ---
NURSE NOTES: Gave report to NAV Muniz. Endorsed plan of NG tube only for medications and g tube placement for tomorrow. In addition, endorsed to verify IVPB blood pressure medication metoprolol and ng tube medications.
[2018-08-20 20:00] VITALS: BP 154/90
[2018-08-20] MEDS: Tamsulosin 0.4mg cap ORAL SCH (20:33)
[2018-08-20] MEDS: Dyna-Hex 2% Top Sol 2oz TOPIC SCH (20:34)
[2018-08-20] MEDS: Sennosides 8.6mg tab GT SCH (20:34)
[2018-08-21] VITALS (9 sets, daily range): BP systolic 106–141; BP diastolic 61–99
--- NOTE | 2018-08-21 01:28 | Cardiology Report ---
APPROVED REPORT EKG Measurement Heart [id number] Sinus tachycardia Minimal voltage criteria for LVH, may be normal variant Borderline ECG
[2018-08-21] MEDS: Metoprolol Tartrate 10 MG in D5W 55 ML IVPB SCH ×2 (01:47→06:15)
[2018-08-21] MEDS: Vancomycin 500 MG in D5W 110 ML IVPB SCH (01:48)
--- NOTE | 2018-08-21 02:33 | NUR ---
NURSE NOTES: Recvd pt. Pt is awake and lying in bed comfortably. Pt is on room air with no sign of sob or resp distress. Pt has NGT in placed with cxr confirmation of placement. Pt has nonverbal expressive. Rhonchi is immediately noticeable, Dr aware. Pt is NPO prior to procedure. Assessed left upper arm PICC, lines c/d/i and running . Wound dressing on abdomen dry and intact. Lynn catheter in place and draining. Bed at lowest position, brakes on, siderails up x2. Siderails padded following seizure precautions. Suction at bedside. Call light within reach. Will continue to monitor.
[2018-08-21] MEDS: Albuterol/Ipratropium 3ml neb HHN SCH ×4 (03:00→14:33)
--- NOTE | 2018-08-21 06:41 | Pre-Procedure Note/Attestation ---
Pre-Procedure Note/Attestation Complete Prior to Procedure Planned Procedure: not applicable Procedure Narrative: egd Indications for Procedure Pre-Operative Diagnosis: GT leak Attestation I attest that I discussed the nature of the procedure; its benefits; risks and complications; and alternatives (and the risks and benefits of such alternatives ), prior to the procedure, with the patient (or the patient's legal licensing representative). I attest that, if there was a reasonable possibility of needing a blood transfusion, the patient (or the patient's legal licensing representative) was given the [facility] standardized written summary, pursuant to the [place] Blood Safety Act ([place] Health and Safety Code # 1645, as amended). I attest that I re-evaluated the patient just prior to the surgery and that there has been no change in the patient's H&P, except as documented below: Homar Parra MD Aug 21, 2018 06:41
[2018-08-21] MEDS ORDERED: Atropine Sulfate 0.4mg/ml inj IVP PRN (06:45)
[2018-08-21] MEDS ORDERED: DiphenhydrAMINE 50mg/ml Inj IVP PRN (06:45)
[2018-08-21] MEDS ORDERED: fentaNYL 100 mcg/2 mL IV PRN (06:45)
[2018-08-21] MEDS ORDERED: Midazolam 2mg/2ml Inj IVP PRN (06:45)
[2018-08-21] MEDS ORDERED: Lidocaine 1% MPF 10mg/ml 5ml ONE (07:00)
[2018-08-21] MEDS ORDERED: Propofol 200mg/20ml IV ONE (07:00)
--- NOTE | 2018-08-21 07:05 | NUR ---
NURSE NOTES: Received patient from NAV Muniz Pt is awake and lying in bed comfortably. Pt is on room air with no sign of sob or resp distress. Pt has NGT in placed with cxr confirmation of placement. Pt has nonverbal expressive. Rhonchi is immediately noticeable, Dr aware. Pt is NPO prior to procedure. Assessed left upper arm PICC, lines c/d/i and running . Wound dressing on abdomen dry and intact. Lynn catheter in place and draining. Bed at lowest position, brakes on, siderails up x2. Siderails padded following seizure precautions. Suction at bedside. Call light within reach. Patient left for GI LAB for g-tube placement. Will continue to monitor.
[2018-08-21 07:11] LABS: HEMATOCRIT 38.5 % (42.0-52.0); HEMOGLOBIN 12.8 G/DL (14.2-18.0); MEAN CORPUSCULAR VOLUME 89 FL (80-99); PLATELET COUNT 231 K/UL (150-450); RED BLOOD COUNT 4.34 M/UL (4.70-6.10); RED CELL DISTRIBUTION WIDTH 14.2 % (11.6-14.8)
[2018-08-21] MEDS ORDERED: NS 500ML IVPB ONE (07:15)
[2018-08-21 07:29] LABS: ANION GAP 8 mmol/L (5-15); BLOOD UREA NITROGEN 4 mg/dL (7-18); CALCIUM 8.3 MG/DL (8.5-10.1); CARBON DIOXIDE 24 MMOL/L (21-32); CHLORIDE 103 MMOL/L (98-107); CREATININE 0.6 MG/DL (0.55-1.30); POTASSIUM 3.5 MMOL/L (3.5-5.1); SODIUM 135 MMOL/L (136-145)
--- NOTE | 2018-08-21 07:40 | NUR ---
HAND-OFF: Report given to Eamon CHOPRA.
--- NOTE | 2018-08-21 07:44 | Endoscopy Procedure Note ---
Endoscopy Procedure Note General Indication for Procedure: dysphagia Procedures Performed: EGD, PEG Operative Findings/Diagnosis: same Specimen: none Pt Tolerated Procedure Well: Yes Estimated Blood Loss: none Anesthesia Anesthesiologist: conrad Anesthesia: MAC Inserted Devices Implant(s) used?: No GI Core Measures 50 yrs or older w/o bx or poly: Not Applicable 10yrs. F/U not recommended: Not Applicable Homar Parra MD Aug 21, 2018 07:44
--- NOTE | 2018-08-21 08:29 | Immediate Post-Op Evaluation ---
Immediate Post-Op Evalulation Immediate Post-Op Evalulation Procedure: EGD/ g-tube placement Date of Evaluation: Aug 21, 2018 Time of Evaluation: 08:04 IV Fluids: 250ml 0.9ns Blood Products: none Estimated Blood Loss: negligible Blood Pressure Systolic: 106 Blood Pressure Diastolic: 71 Pulse Rate: 84 Respiratory Rate: 23 O2 Sat by Pulse Oximetry: 100 Temperature (Fahrenheit): 97.3 Pain Score (1-10): 0 Nausea: No Vomiting: No Complications none Patient Status: awake, reacts, patent Hydration Status: adequate Drug: Melodie Olivera MD Aug 21, 2018 08:29
--- NOTE | 2018-08-21 08:30 | NUR ---
NURSE NOTES: Spoke to NAV Pedraza. EGD and g-tube placement successful. Tube feeding orders entered by Dr. Parra. Saw patient. Patient is alert and non-verbal from expressive aphasia. Patient denies pain. NG tube removed. Dressing on abdomen is intact and dry. patient is on 2l NC breathing easy and unlabored. Patient on p200 matress. Lynn intact. Left arm picc line still patent, dry and intact. Will follow up with g-tube feeding orders.
--- NOTE | 2018-08-21 08:31 | 48 Hour Post Anesthesia Eval ---
Post Anesthesia Evaluation Procedure: EGD/ g-tube placement Date of Evaluation: Aug 21, 2018 Time of Evaluation: 08:06 Blood Pressure Systolic: 121 0: 73 Pulse Rate: 78 Respiratory Rate: 23 Temperature (Fahrenheit): 97.3 O2 Sat by Pulse Oximetry: 100 Airway: patent Nausea: No Vomiting: No Pain Intensity: 0 Hydration Status: adequate Cardiopulmonary Status: stable Mental Status/LOC: patient returned to baseline Post-Anesthesia Complications: none Follow-up care needed: N/A Melodie Steel MD Aug 21, 2018 08:31
--- NOTE | 2018-08-21 08:40 | NUR ---
NURSE NOTES: Dr. Oquendo saw patient. Received orders. Will follow up with plan of care. Addendum: 08/21/18 at 0917 by Eamon Goff RN Dr. Oquendo is aware of sodium 135 and wbc 3.0.
[2018-08-21] MEDS: Lisinopril 20mg tab GT SCH ×2 (09:29→18:00)
[2018-08-21] MEDS: Tums 500mg GT SCH (09:29)
[2018-08-21] MEDS: Miralax 17gm pkt GT SCH (09:29)
[2018-08-21] MEDS: Sodium Chloride 1gm Tab GT SCH (09:29)
[2018-08-21] MEDS: Docusate 100mg/10ml Liq NG SCH (09:29)
[2018-08-21] MEDS: Zinc Oxide Oint 2oz TOPIC SCH ×2 (09:38→18:00)
--- NOTE | 2018-08-21 10:10 | NUR ---
NURSE NOTES: Start Glucerna 1.2 at 20ml/hr at 10:10. G-tube site is patent and intact. Noted scant sanguinous drainage after checking under dressing. Patient will be monitored.
--- NOTE | 2018-08-21 11:55 | Infectious Diseases Prog Note ---
Assessment/Plan Assessment/Plan ASSESSMENT AND PLAN: 1. abdominal wall cellulitis, esbl e.coli g-tube infection, fungal wound culture likely contaminant - vancomycin, meropenem - finish course, will discontinue - lotrimin cream for possible fungal rash - cellulitis clinically improved/resolved - monitor labs - g-tube changed - continue treatment per Dr. Oquendo and GI 2. The patient has dysphagia and G-tube - s/p egd 3. Hypertension. Blood pressure treatment per Dr. Oquendo. 4. CVA. 5. Right hemiparesis. 6. Cerebral hemorrhage. 7. Expressive aphasia. 8. Seizure disorder. 9. COPD. 10. Coronary artery disease. 11. Skin care protocol. 12. No known drug allergies. 13. Social history negative. 14. Family history noncontributory. 15. MAR was noted. 16. Case discussed with RN. 17. Continue treatment per primary consultants. 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, vre colonization Subjective Constitutional: Denies: fever HEENT: Denies: congestion Respiratory: Denies: shortness of breath Cardiovascular: Denies: chest pain Gastrointestinal/Abdominal: Denies: nausea, vomiting, diarrhea Genitourinary: Reports: other - + quiles Neurologic: Denies: headache Psychiatric: Reports: other - na Skin: Denies: rash Hematologic: Denies: bleeding Musculoskeletal: Denies: pain Allergies: Coded Allergies: NO KNOWN ALLERGIES (Unverified Allergy, Unknown, 03/02/15) Objective Vital Signs Last 24 Hour Vital Signs Date Time Temp Pulse Resp B/P (MAP) Pulse Ox O2 Delivery O2 Flow Rate FiO2 08/21/18 11:47 95 20 99 Room Air 21 08/21/18 11:39 98 Room Air 21 08/21/18 11:39 Room Air 21 08/21/18 11:37 92 18 98 Room Air 21 08/21/18 09:29 110/61 08/21/18 09:29 81 110/61 08/21/18 09:00 Room Air 2.0 Nasal Cannula 08/21/18 08:50 81 08/21/18 08:45 98.2 71 18 110/61 (77) 95 08/21/18 08:31 78 23 100 08/21/18 08:29 84 23 100 08/21/18 08:15 Nasal Cannula 2.0 28 08/21/18 08:15 Nasal Cannula 2.0 28 08/21/18 08:13 97.8 76 20 110/68 100 Nasal Cannula 2 08/21/18 08:02 77 20 110/69 100 Nasal Cannula 2 08/21/18 07:57 78 21 121/73 100 Nasal Cannula 2 08/21/18 07:52 97.3 84 23 106/71 100 Nasal Cannula 2 08/21/18 06:15 79 135/96 08/21/18 04:51 Nasal Cannula 2.0 28 08/21/18 04:00 79 08/21/18 04:00 97.2 84 18 135/96 (109) 100 08/21/18 04:00 Nasal Cannula 2.0 28 08/21/18 01:47 104 141/99 08/21/18 00:00 98.2 104 20 141/99 (113) 98 08/21/18 00:00 104 08/20/18 23:15 94 20 99 Nasal Cannula 2.0 28 08/20/18 23:07 93 20 96 Nasal Cannula 2.0 28 08/20/18 21:11 89 18 Nasal Cannula 2.0 28 08/20/18 21:00 Room Air 08/20/18 20:00 98 Nasal Cannula 2.0 28 08/20/18 20:00 89 08/20/18 20:00 92 20 99 Nasal Cannula 2.0 28 08/20/18 20:00 Nasal Cannula 2.0 28 08/20/18 20:00 98.1 91 20 154/90 (111) 100 08/20/18 20:00 89 18 Nasal Cannula 2.0 28 08/20/18 19:50 88 20 98 Nasal Cannula 2.0 28 08/20/18 19:20 89 18 Nasal Cannula 2.0 28 08/20/18 18:51 104 149/65 08/20/18 16:17 113 08/20/18 16:00 99.2 104 20 149/65 (93) 99 08/20/18 14:37 81 22 99 Nasal Cannula 2.0 28 08/20/18 14:33 Nasal Cannula 2.0 28 08/20/18 14:33 98 Nasal Cannula 2.0 28 08/20/18 14:32 84 20 97 Nasal Cannula 2.0 28 08/20/18 13:18 76 174/109 08/20/18 12:38 101 08/20/18 12:00 97.0 112 20 170/111 (130) 100 Height (Feet): 5 Height (Inches): 5.00 Weight (Pounds): 140 General Appearance: no acute distress HEENT: normocephalic, atraumatic, anicteric, mucous membranes moist Respiratory/Chest: lungs clear, normal breath sounds, no respiratory distress, no accessory muscle use Cardiovascular: normal rate, regular rhythm, no gallop/murmur, no JVD Abdomen: normal bowel sounds, soft, non tender, no organomegaly, non distended Genitourinary: other - + quiles - urine clear Extremities: no cyanosis Skin: no rash, other - abdominal wall cellultis resolved, mild fungal rash Neurologic/Psychiatric: medical scientific liaison II-XII grossly normal, alert, responsive Lymphatic: no neck adenopathy Musculoskeletal: no effusion Objective Comparison: 08/13/2018 KUB - Single view of the abdomen obtained Findings: Bowel gas pattern is nonspecific. There is contrast material within portions of the colon. Gastrostomy tube is present. There is diffuse ankylosis of the visualized spine. There is also apparent fusion of the sacroiliac joints. IMPRESSION: Nonspecific bowel gas Microbiology Date/Time Source Procedure Growth Status 08/11/18 13:00 Blood Blood Culture - Final NO GROWTH AFTER 5 DAYS Complete 08/12/18 21:00 Wound Gram Stain - Final Complete 08/12/18 21:00 Wound Culture - Final Escherichia Coli - Esbl Debi Albicans Debi Tropicalis Complete 08/11/18 15:30 Nasal Nares MRSA Culture - Final Staphylococcus Aureus - Mrsa Complete 08/11/18 15:30 Rectum VRE Culture - Final Enterococcus Faecalis - Vre Complete 08/11/18 15:30 Rectum - Final NO CARBAPENEM-RESISTANT ENTEROBACTERI... Complete Laboratory Tests Test 08/21/18 06:35 White Blood Count 3.0 K/UL (4.8-10.8) L Red Blood Count 4.34 M/UL (4.70-6.10) L Hemoglobin 12.8 G/DL (14.2-18.0) L Hematocrit 38.5 % (42.0-52.0) L Mean Corpuscular Volume 89 FL (80-99) Mean Corpuscular Hemoglobin 29.6 PG (27.0-31.0) Mean Corpuscular Hemoglobin Concent 33.3 G/DL (32.0-36.0) Red Cell Distribution Width 14.2 % (11.6-14.8) Platelet Count 231 K/UL (150-450) Mean Platelet Volume 6.6 FL (6.5-10.1) Neutrophils (%) (Auto) % (45.0-75.0) Lymphocytes (%) (Auto) % (20.0-45.0) Monocytes (%) (Auto) % (1.0-10.0) Eosinophils (%) (Auto) % (0.0-3.0) Basophils (%) (Auto) % (0.0-2.0) Differential Total Cells Counted 100 Neutrophils % (Manual) 43 % (45-75) L Lymphocytes % (Manual) 34 % (20-45) Monocytes % (Manual) 18 % (1-10) H Eosinophils % (Manual) 3 % (0-3) Basophils % (Manual) 0 % (0-2) Band Neutrophils 2 % (0-8) Platelet Estimate Adequate Platelet Morphology Normal Red Blood Cell Morphology Normal Sodium Level 135 MMOL/L (136-145) L Potassium Level 3.5 MMOL/L (3.5-5.1) Chloride Level 103 MMOL/L (98-107) Carbon Dioxide Level 24 MMOL/L (21-32) Anion Gap 8 mmol/L (5-15) Blood Urea Nitrogen 4 mg/dL (7-18) L Creatinine 0.6 MG/DL (0.55-1.30) Estimat Glomerular Filtration Rate > 60 mL/min (>60) Glucose Level 133 MG/DL (74-106) H Calcium Level 8.3 MG/DL (8.5-10.1) L Current Medications Medications (Trade) Dose Ordered Sig/Kehinde Route PRN Reason Start Time Stop Time Status Last Admin Dose Admin Al Hydroxide/Mg Hydroxide (Mylanta) 15 ml Q1H PRN ORAL gi upset 08/21/18 06:45 08/21/18 14:00 Albuterol/ Ipratropium (Albuterol/ Ipratropium) 3 ml Q4HRT HHN 08/20/18 15:00 08/25/18 14:59 08/21/18 11:37 Amlodipine Besylate (Norvasc) 10 mg DAILY GT 08/19/18 09:00 09/12/18 10:59 08/21/18 09:29 Atropine Sulfate (Atropine 0.4mg/ ml) 0.5 mg Q5M PRN IVP HR less than 45 BPM 08/21/18 06:45 08/21/18 14:00 Calcium Carbonate (Tums) 500 mg DAILY GT 08/19/18 09:00 09/11/18 08:59 08/21/18 09:29 Chlorhexidine Gluconate (Ivett-Hex 2%) 1 applic DAILY@2000 TOPIC 08/18/18 20:00 09/16/18 19:59 08/20/18 20:34 Clonidine HCl (Catapres TTS-3) 1 patch QWEEK TDERMAL 08/24/18 15:00 09/16/18 14:59 Clonidine HCl (Catapres tab) 0.2 mg Q4H PRN GT SBP > 170mmHg 08/18/18 12:00 09/10/18 11:59 Clotrimazole (Lotrimin) 1 applic Q12HR TOPIC 08/18/18 21:00 09/17/18 20:59 08/21/18 09:38 Dextrose/ Electrolytes 1,000 ml @ 75 mls/hr [id number] IV 08/20/18 11:00 09/19/18 10:59 08/21/18 01:48 Diphenhydramine HCl (Benadryl) 25 mg Q15M PRN IVP Itching 08/21/18 06:45 08/21/18 14:00 Docusate Sodium (Colace) 100 mg DAILY NG 08/19/18 09:00 09/11/18 08:59 08/21/18 09:29 Fentanyl Citrate (Sublimaze 100 mcg/2 mL) 25 mcg Q10M PRN IV Moderate Pain (Pain Scale 4-6) 08/21/18 06:45 08/21/18 14:00 Finasteride (Proscar) 5 mg DAILY ORAL 08/19/18 09:00 09/11/18 08:59 Hydralazine HCl (Apresoline) 5 mg Q30M PRN IV SBP>160 /DBP>90 08/21/18 06:45 08/21/18 14:00 Lansoprazole (Prevacid) 30 mg DAILY GT 08/19/18 09:00 3/27/19 08:59 08/21/18 09:29 Lisinopril (Prinivil) 20 mg BID GT 08/18/18 18:00 09/11/18 08:59 08/21/18 09:29 Midazolam HCl (Versed 2mg/2ml vial) 1 mg Q15M PRN IVP For Anxiety 08/21/18 06:45 08/21/18 14:00 Morphine Sulfate (Morphine Sulfate) 1 mg Q3H PRN IVP For Pain 08/19/18 12:30 08/26/18 12:29 08/19/18 17:56 Ondansetron HCl (Zofran) 4 mg Q1H PRN IVP Nausea & Vomiting 08/21/18 06:45 08/21/18 14:00 Ondansetron HCl (Zofran) 4 mg Q6H PRN GT Nausea & Vomiting 08/18/18 12:00 09/10/18 17:59 Polyethylene Glycol (Miralax) 17 gm DAILY GT 08/19/18 09:00 09/11/18 08:59 08/21/18 09:29 Potassium Chloride (K-Dur) 20 meq Q12HR GT 08/18/18 21:00 09/10/18 20:59 08/21/18 09:29 Sennosides (Senokot) 8.6 mg BEDTIME GT 08/18/18 21:00 09/10/18 20:59 08/20/18 20:34 Sennosides (Senokot) 8.6 mg BEDTIME PRN GT Constipation 08/18/18 21:00 09/10/18 17:59 Simethicone (Mylicon) 80 mg Q8H PRN GT Abdominal cramps 08/18/18 12:00 09/13/18 11:59 Sodium Chloride (NaCl) 1 gm Q12HR GT 08/18/18 21:00 09/10/18 20:59 08/21/18 09:29 Tamsulosin HCl (Flomax) 0.4 mg BEDTIME ORAL 08/18/18 21:00 09/10/18 20:59 08/20/18 20:33 Zinc Oxide (Zinc Oxide) 1 applic TWICE A DAY TOPIC 08/18/18 18:00 09/12/18 08:59 08/21/18 09:38 Rodriguez Hawthorne MD Aug 21, 2018 11:55
--- NOTE | 2018-08-21 13:00 | NUR ---
NURSE NOTES: G-tube patent. No residual. Flushed 100ml of NS. Increased rate to 40ml/hr of Glucerna 1.2.
--- NOTE | 2018-08-21 13:50 | NUR ---
DISCHARGE PLANNING CLINICALS HAVE BEEN FAXED TO [facility] [address] T: [phone] F: [phone] WAITING FOR BED ASSIGNMENT
--- NOTE | 2018-08-21 14:36 | NUR ---
DISCHARGE PLANNED PATIENT HAS BEEN ACCEPTED BACK AT [facility] [address] T:[phone] FOR NURSE TO NURSE REPORT [facility] HAS BEEN ARRANGED FOR [address] [employer] AND [employer] CHECKOUT TECHNICIAN SPOKE WITH PATIENT'S DAUGHTER AILYN, WHO IS IN AGREEMENT WITH DISCHARGE PLAN
--- NOTE | 2018-08-21 14:36 | NUR ---
NURSE NOTES: Spoke to Dr. Oquendo. Ok to keep PICC line post discharge. IN addition, notified doctor of patient's tolerance of feeding and no residuals. From Dr. Oquendo, to discontinued IV fluids.
--- NOTE | 2018-08-21 15:01 | Procedure Note ---
DATE OF PROCEDURE: 08/21/2018 SURGEON: Homar Parra M.D. PROCEDURE: Upper endoscopy with PEG placement. ANESTHESIA: Per Dr. Chun. INSTRUMENT: Olympus adult flexible upper endoscope. INDICATION: Dysphagia. REASON FOR PROCEDURE: The procedure, risks, benefits, and possible consequences, including hemorrhage, aspiration, perforation and infection, and alternative treatments, were explained to the patient/legal guardian by Dr. Homar Parra and the patient/legal guardian understood and accepted these risks. PROCEDURE IN DETAIL: After informed consent was obtained and the patient was adequately sedated, the Olympus upper endoscope was advanced from mouth into the second portion of the duodenum and retroflexion was performed in the stomach. The patient had persistent leakage from the G-tube site. The G-tube site looks relatively closed from outside, but when we look inside the stoma is wide open and we could see going through the hole, so we decided at this point to place the G-tube through the same hole that would be the safest way to do it, otherwise with the new G-tube will continue to leak from the old G-tube site and will be a disaster. So, over a guidewire, we placed a 20-Prydeinig pull type of G-tube through the same opening without any complication. Of note, the patient had another G-tube site, which was closed. SUMMARY OF FINDINGS: 1. Gastritis. 2. Dysphagia, status post G-tube placement. RECOMMENDATIONS: 1. Abdominal binder. 2. Elevate the head of the bed at all times. 3. G-tube flush. 4. G-tube care. 5. Start tube feeding later today. Homar Parra M.D. DR: MOODY JOB#: [id number] CC:
--- NOTE | 2018-08-21 16:15 | NUR ---
NURSE NOTES: Gave report to [facility]. Endorsed about continuing PICC line and report.
--- NOTE | 2018-08-21 18:08 | NUR ---
SNF Discharge: Patient is being discharged from [facility] to [facility]. Awake, alert and non-verbal. patient is able to follow commands. Patient is on room air with audible ronchi (doctor is aware). Patient has patent G-tube with dressing. Patient has PICC line on left upper arm that was inserted on 08/19. PICC dressing change was completed today at 3pm. Patient abdomen is round and soft. Patient urinate once after quiles was removed 3:15pm. All medical devices such as IV, heart monitor, and ID band were removed. Patient left with [facility] on stretcher to ems vehicle.
[2018-08-21] MEDS ORDERED: D5NS 1000ml IV ONE (18:09)
--- NOTE | 2018-08-22 14:39 | Discharge Summary ---
Discharge Summary Discharge Summary _ DATE OF ADMISSION: 08/11/2018 DATE OF DISCHARGE: 08/21/2018 DISCHARGED BY: Dr. Jose J Oquendo CONSULTANTS: Dr. Hattie Gutierres BRIEF HOSPITAL COURSE: Patient is a 63-year-old male, with history of CVA with right hemiparesis as well as expressive aphasia and hypertension. He was brought in to ED from snf for evaluation of infected feeding tube. He was initially given Ancef, but with history of being in a nosocomial environment. Antibiotic was switched to Vanco. On evaluation at the ED, vital signs were stable. He was slightly tachycardic, heart rate of 108. He was afebrile. Blood work did not show any leukocytosis. He was admitted for evaluation of G-tube cellulitis and malfunctioning G-tube. GI was consulted. On assessment G-tube site was noted to have severe edema with mild purulent drainage coming from the site. He was recommended G-tube care with zinc oxide. G-tube was replaced at bedside. KUB post insertion showed satisfactory position of the gastrostomy tube. ID was consulted. Patient was continued on vancomycin. He was started on cefepime for gram-negative coverage. There was new onset abdominal distention, KUB was negative. There was bleeding noted on G-tube site. On 08/16/2018, he underwent upper endoscopy. Attempted to change the G-tube to a J-tube. Unfortunately was not successful. The G-tube was then replaced with another 24 Ghanaian balloon-type G-tube. He tolerated procedure well. However G- tube size was large and was still leaking. G-tube was removed the following day await for G-tube opening to shrink. He was continued on IV fluids. PICC line was inserted to the left arm. Wound culture showed growth of ESBL E. coli and Debi. Cefepime was discontinued. He was started on meropenem. He was given Lotrimin cream for fungal rash on the abdominal wall. G-tube site was closing. He was scheduled for PEG placement, however procedure was canceled due to tachycardia, hypertension and labored breathing. BP was elevated and patient had respiratory distress when EGD was attempted. Unable to control BP well without enteral medications. NG tube was placed. He was resumed on antihypertensives. On August 21, 2018, he underwent EGD with PEG tube placement. During the procedure. G-tube looked closed from outside, however looking inside, stoma was wide open. A new G-tube was inserted through the same hole. He tolerated procedure well. He was placed on a abdominal binder. He was eventually discharged back to snf. FINAL DIAGNOSES: G-tube cellulitis with ESBL E. coli infection Malfunctioning G-tube status post replacement Seizure disorder History of intracranial hemorrhage with right hemiparesis and expressive aphasia Hypertension Coronary artery disease DISPOSITION: Patient was discharged to a SNF. DISCHARGE MEDICATIONS: Refer to Discharge Medication List. I have been assigned to complete a discharge summary on this account, I was not involved with the patient's management. Kenyetta Shannon NP Aug 22, 2018 14:39
== END 2018-08-21 18:10 | DRG 394 ==
LOC: EDBD 11:41 → EDBEDREQ 14:10 → EMR 14:25 → EDBEDREQ 14:48 → 4E 15:01 → 2E 08-18 08:40
PROC: 0D20XUZ Change Feeding Device in Upper Intestinal Tract, External Approach (ICD-10-PCS; principal; 2018-08-16 14:34)
PROC: 0DB68ZX Excision of Stomach, Via Natural or Artificial Opening Endoscopic, Diagnostic (ICD-10-PCS; principal; 2018-08-16 14:34)
PROC: 02HV33Z Insertion of Infusion Device into Superior Vena Cava, Percutaneous Approach (ICD-10-PCS; 2018-08-19)
PROC: B518ZZA Fluoroscopy of Superior Vena Cava, Guidance (ICD-10-PCS; 2018-08-19)
PROC: 0D20XUZ Change Feeding Device in Upper Intestinal Tract, External Approach (ICD-10-PCS; 2018-08-21)
PROC: 0DJ08ZZ Inspection of Upper Intestinal Tract, Via Natural or Artificial Opening Endoscopic (ICD-10-PCS; 2018-08-21)
DX: K94.23 Gastrostomy malfunction (principal); L03.311 Cellulitis of abdominal wall; I69.351 Hemiplegia and hemiparesis following cerebral infarction affecting right dominant side; K94.22 Gastrostomy infection; I10 Essential (primary) hypertension; R00.0 Tachycardia, unspecified; J44.9 Chronic obstructive pulmonary disease, unspecified; I25.10 Atherosclerotic heart disease of native coronary artery without angina pectoris; K29.70 Gastritis, unspecified, without bleeding; R13.10 Dysphagia, unspecified; K31.7 Polyp of stomach and duodenum; I69.920 Aphasia following unspecified cerebrovascular disease; G40.909 Epilepsy, unspecified, not intractable, without status epilepticus; Z16.12 Extended spectrum beta lactamase (ESBL) resistance
CPT/HCPCS: 36415; 36569; 74018; 76937; 80048; 80053; 80202; 83735; 85007; 85025; 85610; 85730; 87040; 87070; 87081; 87181; 87205; 93005; 94003; 94150; 94640; 94664; 94760; 96365; 99285; J2250; J7620; J8499

== ENCOUNTER 2018-08-27 18:43 | Inpatient (IN) | payer MEDICARE, BC, MEDICAID ==
[~2018-08-27] VITALS: Ht 167.6 cm; Wt 63.0 kg
--- NOTE | 2018-08-27 18:43 | NUR ---
ED Nurse Note: Pt brought in by ambulance from [facility] due to abdominal distention and SOB since today. Possible bowel obstruction per EMS. Pt is awake but non verbal, with SOB at rest and wheezing noted. Noted enlarged abdomen. Gtube and quiles catheter placed.
[2018-08-27] MEDS: Albuterol ud Inhalation HHN SCH ×3 (18:45→19:15)
[2018-08-27] MEDS: Ipratropium 0.02% Inh Soln 2.5ml UD HHN SCH ×3 (18:45→19:15)
[2018-08-27] MEDS ORDERED: ZOFRAN4 M3 ORAL (18:59)
[2018-08-27] MEDS ORDERED: AMLODIPINE BESY10 MG ORAL (18:59)
[2018-08-27] MEDS ORDERED: LISINOPRIL20 MG ORAL (18:59)
[2018-08-27] MEDS ORDERED: CATAPRES-TTS-31 EA TDERMAL (18:59)
--- NOTE | 2018-08-27 19:10 | NUR ---
HAND-OFF: Report given to Meghan CHOPRA.
[2018-08-27 19:15] VITALS: BP 156/95
--- NOTE | 2018-08-27 19:40 | NUR ---
ED Nurse Note: RECIEVED REPORT FROM AM NURSE TO RESUME CARE, PT IS RETURNING FROM IMAGING DEPARTMENT, PT IMMEDIATELY PLACED ON BIPAP, PT IS AWAKE AND ALERT, PT IS NON-VERBAL BUT DOES FOLLOW COMMANDS AND YES NO GESTURES ARE APPROPRIATE, PT HAS PICC LINE IN LEFT ARM, UNABLE TO DRAW, PT LABS DRAWNA AND SENT, PT HAS JOHNS, URINE SAMPLE SENT ALSO, TP ABDOMEN IS VERY DISTENDED AND FIRM, G-TUBE INTACT, PT HAS BILAT FOOT DROP, MD AWARE OF PT INCREASED HEART RATE AT 130'S, AGAIN INFORMED , WILL RESUME CARE ORDERED AND CONTINUE TO CLOSELY MONITOR AND PREPRE FOR PT ADMISSION.
[2018-08-27 20:11] LABS: APPEARANCE,URINE SLIGHTLY CLOUDY; COLOR,URINE YELLOW
[2018-08-27 20:12] LABS: BASOPHILS % (AUTO) 1.3 % (0.0-2.0); EOSINOPHILS % (AUTO) 2.4 % (0.0-3.0); HEMATOCRIT 42.9 % (42.0-52.0); HEMOGLOBIN 13.5 G/DL (14.2-18.0); LYMPHOCYTES % (AUTO) 12.1 % (20.0-45.0); MEAN CORPUSCULAR VOLUME 92 FL (80-99); MONOCYTES % (AUTO) 8.2 % (1.0-10.0); NEUTROPHILS % (AUTO) 76.1 % (45.0-75.0); PLATELET COUNT 335 K/UL (150-450); RED BLOOD COUNT 4.69 M/UL (4.70-6.10); RED CELL DISTRIBUTION WIDTH 14.1 % (11.6-14.8); WHITE BLOOD COUNT 11.8 K/UL (4.8-10.8)
[2018-08-27 20:12] LABS: BILIRUBIN, URINE NEGATIVE (NEGATIVE); GLUCOSE, URINE (UA) NEGATIVE (NEGATIVE); KETONES,URINE NEGATIVE (NEGATIVE); LEUKOCYTE ESTERASE ,URINE 3+ (NEGATIVE); NITRITE,URINE NEGATIVE (NEGATIVE); PROTEIN,URINE 2+ (NEGATIVE); UROBILINOGEN,URINE 1 MG/DL (0.0-1.0)
[2018-08-27 20:24] LABS: INR 0.9 (0.9-1.1)
[2018-08-27 20:34] LABS: ALANINE AMINOTRANSFERASE 19 U/L (12-78); ALBUMIN 3.7 G/DL (3.4-5.0); ALBUMIN/GLOBULIN RATIO 0.8 (1.0-2.7); ALKALINE PHOSPHATASE 195 U/L (46-116); ANION GAP 7 mmol/L (5-15); ASPARTATE AMINO TRANSFERASE 20 U/L (15-37); BILIRUBIN,TOTAL 0.6 MG/DL (0.2-1.0); BLOOD UREA NITROGEN 41 mg/dL (7-18); CALCIUM 9.7 MG/DL (8.5-10.1); CARBON DIOXIDE 24 MMOL/L (21-32); CHLORIDE 106 MMOL/L (98-107); CREATININE 1.2 MG/DL (0.55-1.30); SODIUM 138 MMOL/L (136-145)
[2018-08-27 20:39] LABS: POTASSIUM 6.7 MMOL/L (3.5-5.1)
[2018-08-27 20:45] VITALS: BP 110/75
--- NOTE | 2018-08-27 21:00 | NUR ---
ED Nurse Note: PT CONTINUES TO REST IN BED, REPOSITIONED AND TURNED WITH PILLOW SUPPORT, PT REMAINS ON CARDIAC MONITORING, MD STATES TO CONNECT PT G-TUBE TO SUCTION, PT HAS LARGE AMOUNTS OF AIR IN STOMACH, WILL CONTINUE TO MONITOR WHILE WAITING FOR ADMISION PLACEMENT.
[2018-08-27] MEDS ORDERED: Insulin Human Regular 100units/ml 3ml IV ONE (21:15)
[2018-08-27] MEDS ORDERED: Sodium Bicarbonate 50ml Carp IV ONE (21:15)
[2018-08-27] MEDS ORDERED: Sodium Polystyrene Sulfonate 15gm Powder ORAL ONE (21:15)
[2018-08-27] MEDS ORDERED: Sodium Polystyrene Sulfonate Enema RECTAL ONE (21:30)
[2018-08-27] MEDS ORDERED: Vancomycin 1 GM in NS 275 ML IVPB ONE (21:30)
[2018-08-27] MEDS ORDERED: Azithromycin 500 MG in D5W 275 ML IVPB ONE (21:30)
[2018-08-27] MEDS ORDERED: Piperacillin/Tazobactam 3.375 GM in NS 110 ML IVPB ONE (21:30)
--- NOTE | 2018-08-27 21:30 | NUR ---
ED Nurse Note: PT REPEAT CHEMISTRY DRAWN AND SENT TO MD DU STATES NOT TO MEDICATE TIL RESULTS GIVEN TO MAKE SURE PREVIOUS SAMPLE IS NOT HEMOLIZED.
[2018-08-27 21:58] LABS: ANION GAP 5 mmol/L (5-15); BLOOD UREA NITROGEN 43 mg/dL (7-18); CALCIUM 9.3 MG/DL (8.5-10.1); CARBON DIOXIDE 26 MMOL/L (21-32); CHLORIDE 107 MMOL/L (98-107); CREATININE 1.2 MG/DL (0.55-1.30); SODIUM 138 MMOL/L (136-145)
[2018-08-27 22:04] LABS: POTASSIUM 6.3 MMOL/L (3.5-5.1)
--- NOTE | 2018-08-27 22:13 | Emergency Room Report ---
History of Present Illness General Chief Complaint: General Complaint Source: EMS, PMD Present Illness HPI Patient is from her assisted. Patient has a history of a G-tube. Patient was noted to express evidence of worsening shortness of breath and was with abdominal distention and was brought here for further evaluation referred here by Dr. Jose J Oquendo. Symptoms noted to be highly severe. Patient at baseline is unable to provide much history. History was obtained from medical records. Apparently patient's started to deteriorate today.No other modifying factors. No other associated signs and symptoms. No other complaints were noted. Allergies: Coded Allergies: NO KNOWN ALLERGIES (Unverified Allergy, Unknown, 03/02/15) Patient History Past Medical History: HTN, COPD, CVA/TIA - Right-sided paralysis, seizures, other - Abdominal distention Past Surgical History: other - G-tube Social History Narrative stays at a assisted Reviewed Nursing Documentation: PMH: Agreed; PSxH: Agreed Nursing Documentation-PMH Past Medical History: No History, Except For Hx Cardiac Problems: Yes Hx Hypertension: Yes Hx Pacemaker: No Hx Asthma: No Hx COPD: Yes Hx Diabetes: No Hx Cancer: No Hx Gastrointestinal Problems: Yes - abdominal distension, gastrostomy malfunction Hx Dialysis: No Hx Neurological Problems: Yes - contracture 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 Hx Seizures: Yes Hx Paralysis: Yes - right sided hemiplegia Hx Head Trauma: Yes - INTERCEREBRAL HEMORRHAGE Hx Speech Problem: Yes - APHASIA Hx Aphasia: Yes Hx Dysphasia: Yes Hx Weakness: Yes - Right sided weakness Review of Systems All Other Systems: limited - Patient unable to speak Physical Exam Vital Signs Date Time Temp Pulse Resp B/P (MAP) Pulse Ox O2 Delivery O2 Flow Rate FiO2 08/27/18 18:29 98.8 125 26 130/85 98 Nasal Cannula 5.0 08/27/18 19:15 40 Sp02 EP Interpretation: reviewed, normal General Appearance: alert, moderate distress Head: normocephalic, atraumatic Eyes: bilateral eye normal inspection ENT: normal ENT inspection, dry mucus membranes Neck: normal inspection, full range of motion, supple Respiratory: respiratory distress, decreased breath sounds, accessory muscle use, wheezing, expiration, inspiration Cardiovascular #1: tachycardia Gastrointestinal: distended, other - G-tube in place, decreased bowel sounds Genitourinary: normal inspection Musculoskeletal: decreased range of motion Neurologic: other - Altered, shortness of breath, unable to fully assess Psychiatric: depressed affect, anxious Skin: normal inspection, normal color, no rash Procedures Critical Care Time Critical Care Time Patient had a critical medical condition which untreated could potentially result in life or limb threatening injury. Total critical care time excluding procedures was approximately 45 minutes. Medical Decision Making Diagnostic Impression: Primary Impression: Hyperkalemia Additional Impressions: Respiratory distress Pneumonia Tachycardia UTI (urinary tract infection) Abdominal distention ER Course Patient presents emergency department today complaining of shortness of breath. Differential diagnoses include acute pneumonia, CHF, acute coronary syndrome, pneumothorax, asthma, COPD flare, just to name a few.Given the severity of the patient's presentation I felt this is a highly complex patient. This patient required extensive workup. Because severe he patient's presentation this was considered be a critical patient. Patient was placed on BiPAP for his respirations. X-ray shows evidence of pneumonia blood cultures were obtained patient was started on IV antibiotics. He was also ordered for Solu-Medrol. Because of patient's large amount of abdominal distention patient received a CAT scan the abdomen pelvis. CAT scan abdomen and pelvis show evidence of bowel distention but no definite evidence of bowel obstruction. Because of his bowel distention and dilatation G-tube was placed to suction. Patient's laboratory workup shows evidence of elevated potassium. Because of his elevated potassium repeat potassium was obtained which also shows that it is elevated. Because of the concern patient was started on Kayexalate I car glucose and insulin. Patient case was discussed with Dr. Jose J Oquendo who knows the patient well. Patient's blood pressure has been stable. Patient will be admitted to the [facility] for further treatment. Labs Test 08/27/18 19:30 08/27/18 19:45 08/27/18 21:30 White Blood Count 11.8 K/UL (4.8-10.8) Red Blood Count 4.69 M/UL (4.70-6.10) Hemoglobin 13.5 G/DL (14.2-18.0) Hematocrit 42.9 % (42.0-52.0) Mean Corpuscular Volume 92 FL (80-99) Mean Corpuscular Hemoglobin 28.8 PG (27.0-31.0) Mean Corpuscular Hemoglobin Concent 31.5 G/DL (32.0-36.0) Red Cell Distribution Width 14.1 % (11.6-14.8) Platelet Count 335 K/UL (150-450) Mean Platelet Volume 5.5 FL (6.5-10.1) Neutrophils (%) (Auto) 76.1 % (45.0-75.0) Lymphocytes (%) (Auto) 12.1 % (20.0-45.0) Monocytes (%) (Auto) 8.2 % (1.0-10.0) Eosinophils (%) (Auto) 2.4 % (0.0-3.0) Basophils (%) (Auto) 1.3 % (0.0-2.0) Prothrombin Time 10.0 SEC (9.30-11.50) Prothromb Time International Ratio 0.9 (0.9-1.1) Activated Partial Thromboplast Time 29 SEC (23-33) Sodium Level 138 MMOL/L (136-145) 138 MMOL/L (136-145) Potassium Level 6.7 MMOL/L (3.5-5.1) 6.3 MMOL/L (3.5-5.1) Chloride Level 106 MMOL/L (98-107) 107 MMOL/L (98-107) Carbon Dioxide Level 24 MMOL/L (21-32) 26 MMOL/L (21-32) Anion Gap 7 mmol/L (5-15) 5 mmol/L (5-15) Blood Urea Nitrogen 41 mg/dL (7-18) 43 mg/dL (7-18) Creatinine 1.2 MG/DL (0.55-1.30) 1.2 MG/DL (0.55-1.30) Estimat Glomerular Filtration Rate > 60 mL/min (>60) > 60 mL/min (>60) Glucose Level 108 MG/DL (74-106) 125 MG/DL (74-106) Calcium Level 9.7 MG/DL (8.5-10.1) 9.3 MG/DL (8.5-10.1) Total Bilirubin 0.6 MG/DL (0.2-1.0) Aspartate Amino Transf (AST/SGOT) 20 U/L (15-37) Alanine Aminotransferase (ALT/SGPT) 19 U/L (12-78) Alkaline Phosphatase 195 U/L (46-116) Troponin I 0.000 ng/mL (0.000-0.056) Pro-B-Type Natriuretic Peptide 194 pg/mL (0-125) Total Protein 8.3 G/DL (6.4-8.2) Albumin 3.7 G/DL (3.4-5.0) Globulin 4.6 g/dL Albumin/Globulin Ratio 0.8 (1.0-2.7) Lipase 325 U/L (73-393) Urine Color Yellow Urine Appearance Slightly cloudy Urine pH 7.0 (4.5-8.0) Urine Specific Anselmo 1.010 (1.005-1.035) Urine Protein 2+ (NEGATIVE) Urine Glucose (UA) Negative (NEGATIVE) Urine Ketones Negative (NEGATIVE) Urine Blood 2+ (NEGATIVE) Urine Nitrite Negative (NEGATIVE) Urine Bilirubin Negative (NEGATIVE) Urine Urobilinogen 1 MG/DL (0.0-1.0) Urine Leukocyte Esterase 3+ (NEGATIVE) Urine RBC 5-10 /HPF (0 - 0) Urine WBC 15-20 /HPF (0 - 0) Urine Squamous Epithelial Cells Occasional /LPF Urine Bacteria Few /HPF (NONE) Urine Yeast Many /HPF (NONE) EKG Diagnostic Results Rate: tachycardiac Rhythm: NSR ST Segments: no acute changes Rhythm Strip Diag. Results EP Interpretation: yes Rate: 130s Rhythm: NSR, no PVC's, no ectopy Chest X-Ray Diagnostic Results Chest X-Ray Diagnostic Results : Chest X-Ray Ordered: Yes # of Views/Limited/Complete: 1 View Indication: Shortness of Breath EP Interpretation: Yes Interpretation: other - Left sided consolidatio tortuous aorta, cardiomegaly , pulmonary congestion Impression: Other - Pneumonia, cardiomegaly Electronically Signed by: Electronically signed by Pito Mccrary MD Last Vital Signs Date Time Temp Pulse Resp B/P (MAP) Pulse Ox O2 Delivery O2 Flow Rate FiO2 08/27/18 21:16 117 24 100 Full Face 40 08/27/18 20:45 98.8 110/75 5.0 Status: improved Disposition: ADMITTED INPATIENT Condition: Serious Referrals: Jose J Oquendo MD (PCP) Pito Mccrary MD Aug 27, 2018 22:13
[2018-08-27 22:15] VITALS: BP 121/85
[2018-08-27] MEDS ORDERED: Solu-MEDROL 125mg Inj IVP ONE (22:30)
--- NOTE | 2018-08-27 23:00 | NUR ---
ED Nurse Note: pt has room for admission, pt is currently recieving iv antibiotics as ordered, will send to bull bed when completed, pt also remains on suction to g-tube, noted with coffee ground like contents, immediately reported to md ely, no new orders recieved, will continue to monitor and prepare for admisison when meds complete.
[2018-08-27 23:30] VITALS: BP 112/68
--- NOTE | 2018-08-28 | NUR ---
NURSE NOTES: Received report from ER nurse, Louis Sanders RN. Awaiting patient's arrival
--- NOTE | 2018-08-28 00:05 | NUR ---
ED Nurse Note: PT CONTINUING WITH MEDS ORDERED, TOLERATING WELL, PT NOT TO GO TO FLOOR BED FOR ABOUT ANOTHER HOUR, REPORT CALLED TO FLOOR NURSE [facility] BEFORE COMPUTER CLOSES, WILL SEND PT UP WHEN IVPB COMPLETED.
--- NOTE | 2018-08-28 01:30 | NUR ---
ED Nurse Note: PT REMAINS IN ED RECIEVING IV ANTIBIOTICS, FURTHER MEDS TO GIVE BEFORE PT CAN GO TO FLOOR BED, RECIEVED CALL FROM FLOOR STATING MD IS THERE AND WANTS PT UP THERE NOW, EXPLAINED REASON PT STILL HERE AND INFORMED NURSE THAT VANCOMYCIN STILL NEEDS TO BE GIVEN, PT TAKEN TO FLOOR BED IMMEDIATELY, VIA GURNEY WITH ACLS PROTOCOLS AND ER-TECH, IV ZITHROMAX COMPLETING, PT IS AWAKE AND ALERT, NAD NOTED DURING PT TRANSPORT TO FLOOR.
[2018-08-28 01:40] VITALS: BP 136/83
[2018-08-28] MEDS ORDERED: Sodium Polystyrene Sulfonate 15gm Powder GT ONE (02:00)
[2018-08-28] MEDS ORDERED: Sodium Polystyrene Sulfon/Sorb 15gm/60ml Susp ONE (02:38)
[2018-08-28] MEDS ORDERED: Albuterol/Ipratropium 3ml neb ONE ×2 (02:49→07:43)
--- NOTE | 2018-08-28 03:58 | NUR ---
ED Nurse Note: previous charting on paper, computer on downtime, went to floor unit to hang ordered vancomycin, floor nurse will not do, pt taken to unit before done per md request.
[2018-08-28] MEDS ORDERED: Acetaminophen 650mg/20.3ml GT PRN (04:00)
[2018-08-28 04:31] LABS: HEMATOCRIT 41.7 % (42.0-52.0); HEMOGLOBIN 13.5 G/DL (14.2-18.0); MEAN CORPUSCULAR VOLUME 91 FL (80-99); PLATELET COUNT 308 K/UL (150-450); RED BLOOD COUNT 4.59 M/UL (4.70-6.10); WHITE BLOOD COUNT 7.8 K/UL (4.8-10.8)
[2018-08-28 04:55] LABS: ANION GAP 9 mmol/L (5-15); BLOOD UREA NITROGEN 34 mg/dL (7-18); CALCIUM 9.6 MG/DL (8.5-10.1); CARBON DIOXIDE 26 MMOL/L (21-32); CHLORIDE 106 MMOL/L (98-107); CREATININE 1.2 MG/DL (0.55-1.30); POTASSIUM 5.2 MMOL/L (3.5-5.1); SODIUM 141 MMOL/L (136-145)
[2018-08-28 05:08] LABS: ALANINE AMINOTRANSFERASE 24 U/L (12-78); ALBUMIN 3.5 G/DL (3.4-5.0); ALBUMIN/GLOBULIN RATIO 0.8 (1.0-2.7); ALKALINE PHOSPHATASE 183 U/L (46-116); ASPARTATE AMINO TRANSFERASE 17 U/L (15-37); BILIRUBIN,TOTAL 0.9 MG/DL (0.2-1.0)
[2018-08-28] MEDS ORDERED: Piperacillin/Tazobactam 3.375 GM in NS 110 ML IVPB SCH ×4 (06:00)
--- NOTE | 2018-08-28 07:40 | NUR ---
HAND-OFF: Report given to Juana Garcia RN.
[2018-08-28] MEDS: Albuterol/Ipratropium 3ml neb HHN SCH ×5 (07:45→23:19)
--- NOTE | 2018-08-28 07:45 | NUR ---
NURSE NOTES: Received pt from [facility]. Pt in stable condition. No cardiopulmonary distress noted. Pt is AAOx3 on 4L NC. GT noted on low continuos suction draining gastric content. F/C noted draining yellow urine. Skin alterations noted. Pt has BILLY PICC line. Pt is on seizure precaution with seizure pads attached to side rails. Bed is in lowest position. Call light within reach. Side rails up x 3. Will monitor pt.
[2018-08-28 08:00] VITALS: BP 144/109
[2018-08-28] MEDS ORDERED: Pantoprazole Inj IVP SCH (09:00)
[2018-08-28] MEDS ORDERED: Dyna-Hex 2% Top Sol 2oz TOPIC SCH ×3 (09:00→20:00)
--- NOTE | 2018-08-28 09:31 | Consultation ---
Consult Note Consult Note [id number] Stuart Moyer MD Aug 28, 2018 09:31
--- NOTE | 2018-08-28 10:06 | NUR ---
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 110ml ADMITTED TO SDU DC PLAN: [facility]
[2018-08-28] MEDS: Zosyn 3.375gm q8h **Extended infusion IVPB SCH ×4 (10:15→15:10)
[2018-08-28] MEDS: Pantoprazole Inj IVP SCH (10:16)
--- NOTE | 2018-08-28 11:06 | GI Initial Consult Note ---
History of Present Illness General Date patient seen: Aug 28, 2018 Time patient seen: 10:59 Reason for Hospitalization: General Complaint Referring physician: JOSE J OQUENDO Reason for Consultation: ABDOMINAL DISTENTION Present Illness HPI Patient is from her detention. Patient has a history of a G-tube. Patient was noted to express evidence of worsening shortness of breath and was with abdominal distention and was brought here for further evaluation referred here by Dr. Jose J Oquendo. Symptoms noted to be highly severe. Patient at baseline is unable to provide much history. History was obtained from medical records. Apparently patient's started to deteriorate today.No other modifying factors. No other associated signs and symptoms. No other complaints were noted. GI consulted for abdominal distention. ROS limited, patient nonverbal NAD no active s/sx of N/V/D. Had recent admission here at [place] with GT site cellulitis and GT replacement. Presents today with abdominal distention. Abdominal Pelvis CT was done, pending final read at this time. Labs reviewed; Hgb 13.5, K 5.2. Home Meds Reported Medications Ondansetron* (ZOFRAN*) 4 Mg Tablet, 4 MG ORAL Q6H PRN for Nausea & Vomiting, TAB 08/27/18 Lisinopril (LISINOPRIL*) 20 Mg Tablet, 20 MG ORAL DAILY, TAB 08/27/18 Clonidine HCl (Catapres-Tts 3) 1 Each Patch.tdwk, 1 PATCH TDERMAL ONCE A WEEK, PATCH 08/27/18 Amlodipine Besylate* (AMLODIPINE BESYLATE*) 10 Mg Tablet, 10 MG ORAL DAILY, TAB 08/27/18 Sodium Chloride* (SODIUM CHLORIDE*) 1 Gm Tablet, 1 GM GT BID, TAB 07/05/18 Albuterol Sulfate* (ALBUTEROL SULFATE HHN*) 2.5 Mg/3 Ml Vial.neb, 3 ML INH Q4H PRN for Shortness of Breath, EA 07/05/18 Bisacodyl (BISACODYL) 10 Mg/30 Ml Enema, 10 MG RC PRN, EA 07/05/18 Docusate Sodium* (DOCUSATE SODIUM*) 100 Mg Capsule, 100 MG GT DAILY, CAP 07/05/18 Calcium Carbonate (CALCIUM CARBONATE) 600 Mg Tablet, 600 MG GT DAILY, TAB 07/05/18 Metoprolol Tartrate* (METOPROLOL TARTRATE*) 100 Mg Tablet, 100 MG GT EVERY 8 HOURS, TAB 07/05/18 Enalapril Maleate* (VASOTEC*) 20 Mg Tablet, 20 MG GT EVERY 12 HOURS, TAB 07/05/18 Sennosides (Senokot) 8.6 Mg Tablet, 8.6 MG GT BEDTIME, TAB 07/05/18 Lansoprazole* (LANSOPRAZOLE*) 30 Mg Capsule.dr, 30 MG GT DAILY, CAP 07/05/18 Potassium Chloride* (K-DUR*) 20 Meq Tab.er.prt, 20 MEQ GT BID 07/05/18 Hydrocodone Bit/Acetaminophen 5-325* (NORCO 5-325*) 1 Each Tablet, 1 TAB GT Q4H PRN for Severe Pain (Pain Scale 7-10), TAB 0 Refills 07/05/18 Polyethylene Glycol 3350* (MIRALAX*) 17 Gm Powd.pack, 17 GM GT DAILY, PACKET 07/05/18 Levalbuterol Hcl (LEVALBUTEROL HCL) 0.31 Mg/3 Ml Vial.neb, 0.31 MG IH EVERY 4 HOURS PRN for Shortness of Breath, VIAL 07/05/18 Tamsulosin Hcl (TAMSULOSIN HCL*) 0.4 Mg Cap.er.24h, 0.4 MG GT BEDTIME, CAP 07/05/18 Clonidine Hcl* (CATAPRES*) 0.2 Mg Tablet, 0.2 MG GT Q4HR PRN for For High Blood Pressure, TAB 07/05/18 Finasteride* (PROSCAR*) 5 Mg Tablet, 5 MG GT DAILY, TAB 06/01/17 Ondansetron* (ZOFRAN*) 4 Mg Tablet, 4 MG GT Q6H PRN for Nausea & Vomiting, TAB 03/02/15 Discontinued Scripts Levofloxacin* (LEVAQUIN*) 500 Mg Tablet, 500 MG ORAL DAILY for 10 Days, TAB Prov:Toño Jane MD 07/11/18 Med list reviewed/reconciled: Yes Allergies: Coded Allergies: NO KNOWN ALLERGIES (Unverified Allergy, Unknown, 03/02/15) Patient History Limited by: medical condition History Provided By: Medical Record [facility] Narrative Past Medical History: HTN, COPD, CVA/TIA - Right-sided paralysis, seizures, other - Abdominal distention Past Surgical History: other - G-tube Social History Narrative stays at a detention Reviewed Nursing Documentation: PMH: Agreed; PSxH: Agreed Nursing Documentation-PMH Past Medical History: No History, Except For Hx Cardiac Problems: Yes Hx Hypertension: Yes Hx Pacemaker: No Hx Asthma: No Hx COPD: Yes Hx Diabetes: No Hx Cancer: No Hx Gastrointestinal Problems: Yes - abdominal distension, gastrostomy malfunction Hx Dialysis: No Hx Neurological Problems: Yes - contracture 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 Hx Seizures: Yes Hx Paralysis: Yes - right sided hemiplegia Hx Head Trauma: Yes - INTERCEREBRAL HEMORRHAGE Hx Speech Problem: Yes - APHASIA Hx Aphasia: Yes Hx Dysphasia: Yes Hx Weakness: Yes - Right sided weakness Social History: Denies: smoking, alcohol use, drug use, other Review of Systems All Other Systems: negative except mentioned in HPI Physical Exam Vital Signs Date Time Temp Pulse Resp B/P (MAP) Pulse Ox O2 Delivery O2 Flow Rate FiO2 08/27/18 18:29 98.8 125 26 130/85 98 Nasal Cannula 5.0 08/27/18 19:15 40 Sp02 EP Interpretation: reviewed, normal Labs Laboratory Tests Test 08/27/18 18:46 08/27/18 19:30 08/27/18 19:45 08/27/18 21:30 Arterial Blood pH 7.411 (7.350-7.450) Arterial Blood Partial Pressure CO2 35.1 mmHg (35.0-45.0) Arterial Blood Partial Pressure O2 135.8 mmHg (75.0-100.0) H Arterial Blood HCO3 21.8 mmol/L (22.0-26.0) L Arterial Blood Oxygen Saturation 98.4 % (95-100) Arterial Blood Base Excess -2.3 (-2-2) L Ja Test Positive White Blood Count 11.8 K/UL (4.8-10.8) H Red Blood Count 4.69 M/UL (4.70-6.10) L Hemoglobin 13.5 G/DL (14.2-18.0) L Hematocrit 42.9 % (42.0-52.0) Mean Corpuscular Volume 92 FL (80-99) Mean Corpuscular Hemoglobin 28.8 PG (27.0-31.0) Mean Corpuscular Hemoglobin Concent 31.5 G/DL (32.0-36.0) L Red Cell Distribution Width 14.1 % (11.6-14.8) Platelet Count 335 K/UL (150-450) Mean Platelet Volume 5.5 FL (6.5-10.1) L Neutrophils (%) (Auto) 76.1 % (45.0-75.0) H Lymphocytes (%) (Auto) 12.1 % (20.0-45.0) L Monocytes (%) (Auto) 8.2 % (1.0-10.0) Eosinophils (%) (Auto) 2.4 % (0.0-3.0) Basophils (%) (Auto) 1.3 % (0.0-2.0) Prothrombin Time 10.0 SEC (9.30-11.50) Prothromb Time International Ratio 0.9 (0.9-1.1) Activated Partial Thromboplast Time 29 SEC (23-33) Sodium Level 138 MMOL/L (136-145) 138 MMOL/L (136-145) Potassium Level 6.7 MMOL/L (3.5-5.1) *H 6.3 MMOL/L (3.5-5.1) *H Chloride Level 106 MMOL/L (98-107) 107 MMOL/L (98-107) Carbon Dioxide Level 24 MMOL/L (21-32) 26 MMOL/L (21-32) Anion Gap 7 mmol/L (5-15) 5 mmol/L (5-15) Blood Urea Nitrogen 41 mg/dL (7-18) H 43 mg/dL (7-18) H Creatinine 1.2 MG/DL (0.55-1.30) 1.2 MG/DL (0.55-1.30) Estimat Glomerular Filtration Rate > 60 mL/min (>60) > 60 mL/min (>60) Glucose Level 108 MG/DL (74-106) H 125 MG/DL (74-106) H Calcium Level 9.7 MG/DL (8.5-10.1) 9.3 MG/DL (8.5-10.1) Total Bilirubin 0.6 MG/DL (0.2-1.0) Aspartate Amino Transf (AST/SGOT) 20 U/L (15-37) Alanine Aminotransferase (ALT/SGPT) 19 U/L (12-78) Alkaline Phosphatase 195 U/L (46-116) H Troponin I 0.000 ng/mL (0.000-0.056) Pro-B-Type Natriuretic Peptide 194 pg/mL (0-125) H Total Protein 8.3 G/DL (6.4-8.2) H Albumin 3.7 G/DL (3.4-5.0) Globulin 4.6 g/dL Albumin/Globulin Ratio 0.8 (1.0-2.7) L Lipase 325 U/L (73-393) Urine Color Yellow Urine Appearance Slightly cloudy Urine pH 7.0 (4.5-8.0) Urine Specific Bells 1.010 (1.005-1.035) Urine Protein 2+ (NEGATIVE) H Urine Glucose (UA) Negative (NEGATIVE) Urine Ketones Negative (NEGATIVE) Urine Blood 2+ (NEGATIVE) H Urine Nitrite Negative (NEGATIVE) Urine Bilirubin Negative (NEGATIVE) Urine Urobilinogen 1 MG/DL (0.0-1.0) H Urine Leukocyte Esterase 3+ (NEGATIVE) H Urine RBC 5-10 /HPF (0 - 0) H Urine WBC 15-20 /HPF (0 - 0) H Urine Squamous Epithelial Cells Occasional /LPF Urine Bacteria Few /HPF (NONE) Urine Yeast Many /HPF (NONE) H Test 08/28/18 03:50 White Blood Count 7.8 K/UL (4.8-10.8) Red Blood Count 4.59 M/UL (4.70-6.10) L Hemoglobin 13.5 G/DL (14.2-18.0) L Hematocrit 41.7 % (42.0-52.0) L Mean Corpuscular Volume 91 FL (80-99) Mean Corpuscular Hemoglobin 29.4 PG (27.0-31.0) Mean Corpuscular Hemoglobin Concent 32.4 G/DL (32.0-36.0) Red Cell Distribution Width 15.0 % (11.6-14.8) H Platelet Count 308 K/UL (150-450) Mean Platelet Volume 6.2 FL (6.5-10.1) L Neutrophils (%) (Auto) % (45.0-75.0) Lymphocytes (%) (Auto) % (20.0-45.0) Monocytes (%) (Auto) % (1.0-10.0) Eosinophils (%) (Auto) % (0.0-3.0) Basophils (%) (Auto) % (0.0-2.0) Sodium Level 141 MMOL/L (136-145) Potassium Level 5.2 MMOL/L (3.5-5.1) H Chloride Level 106 MMOL/L (98-107) Carbon Dioxide Level 26 MMOL/L (21-32) Anion Gap 9 mmol/L (5-15) Blood Urea Nitrogen 34 mg/dL (7-18) H Creatinine 1.2 MG/DL (0.55-1.30) Estimat Glomerular Filtration Rate > 60 mL/min (>60) Glucose Level 170 MG/DL (74-106) H Calcium Level 9.6 MG/DL (8.5-10.1) Total Bilirubin 0.9 MG/DL (0.2-1.0) Aspartate Amino Transf (AST/SGOT) 17 U/L (15-37) Alanine Aminotransferase (ALT/SGPT) 24 U/L (12-78) Alkaline Phosphatase 183 U/L (46-116) H Total Protein 8.0 G/DL (6.4-8.2) Albumin 3.5 G/DL (3.4-5.0) Globulin 4.5 g/dL Albumin/Globulin Ratio 0.8 (1.0-2.7) L Thyroid Stimulating Hormone (TSH) 3.821 uiU/mL (0.358-3.740) General Appearance: well appearing, no apparent distress, alert Head: normocephalic EENT: PERRL/EOMI, normal ENT inspection Neck: supple Respiratory: normal breath sounds, no respiratory distress Cardiovascular: normal rate Gastrointestinal: normal inspection, non tender, soft, normal bowel sounds, distended, gt Rectal: deferred Genitourinary: deferred Musculoskeletal: normal inspection, back normal Neurologic: normal inspection, alert, responsive Psychiatric: normal inspection, memory normal Skin: normal inspection, normal color, no rash, warm/dry, palpation normal, well hydrated Lymphatic: normal inspection, no adenopathy Current Medications Current Medications Medications (Trade) Dose Ordered Sig/Kehinde Route PRN Reason Start Time Stop Time Status Last Admin Dose Admin Acetaminophen (Tylenol) 650 mg Q4H PRN GT Mild Pain/Temp > 100.5 08/28/18 04:00 09/27/18 03:59 Albuterol/ Ipratropium (Albuterol/ Ipratropium) 3 ml Q4HRT HHN 08/28/18 07:00 09/02/18 06:59 08/28/18 07:45 Chlorhexidine Gluconate (Ivett-Hex 2%) 1 applic DAILY TOPIC 08/28/18 20:00 09/27/18 19:59 Clonidine HCl (Catapres Tab) 0.1 mg Q3HR PRN GT SBP >150 08/28/18 04:30 09/27/18 04:14 Furosemide (Lasix) 40 mg Q8H IV 08/28/18 10:30 08/28/18 18:31 08/28/18 10:16 Ondansetron HCl (Zofran) 4 mg Q4HR PRN IVP nausea/vomiting 08/28/18 04:30 09/27/18 04:14 Pantoprazole (Protonix) 40 mg DAILY IVP 08/28/18 09:00 09/27/18 08:59 08/28/18 10:16 Piperacillin Sod/ Tazobactam Sod 3.375 gm/Sodium Chloride 110 ml @ 27.5 mls/hr Q8H IVPB 08/28/18 08:00 09/04/18 07:59 08/28/18 10:15 Tamsulosin HCl (Flomax) 0.4 mg BEDTIME ORAL 08/28/18 21:00 09/27/18 20:59 Vancomycin HCl (Vanco rx to dose) 1 ea DAILY PRN MISC Per rx protocol 08/28/18 04:15 09/27/18 03:59 Vancomycin HCl 1.25 gm/Dextrose 275 ml @ 183.333 mls/hr Q24H IVPB 08/28/18 21:00 09/02/18 20:59 GI: Plan Problems: (1) Cellulitis (2) G-tube replacement (3) Abdominal distension (4) Constipated (5) SBO (small bowel obstruction) (6) Ileus Plan maintain NPO + IVFs await AP CT r/o SBO place GT to LIS Antibiotics per infectious disease zinc oxide daily around GT site daily GT site care 3 times daily and as needed PPI GTFs per RD when cleared Follow labs Discussed with Dr. Parra. Thank you for this patient referral, we will follow. The patient was seen and examined at bedside and all new and available data was reviewed in the patients chart. I agree with the above findings, impression and plan. (Patient seen earlier today. Signature stamp does not reflect patient encounter time.). - MD Maria Del Carmen KimHaleigh-Josué RONALDO Aug 28, 2018 11:06
[2018-08-28 12:00] VITALS: BP 124/91
--- NOTE | 2018-08-28 13:02 | History & Physical ---
History and Physical History & Physicial HISTORY OF PRESENT ILLNESS: The patient was admitted for resp distress and abd distension. I saw him at his SNF before transfer. He was on BiPAP last night but improved and is off. PAST MEDICAL HISTORY: CVA with right hemiparesis as well as expressive aphasia, hypertension, coronary artery disease, COPD, G-tube placement with multiple episodes of G- tube malfunction, cerebral hemorrhage, seizure disorder, and dysphagia. Recently hospitalized with GT site cellulitis and tube malfcn. SOCIAL HISTORY: Unavailable. MEDICATIONS: Pre-hospital and current hospital medications reviewed and reconciled and documented in the electronic medical record by dose, frequency, and route. ALLERGIES: None. REVIEW OF SYSTEMS: Unavailable as the patient has expressive aphasia. PHYSICAL EXAMINATION: GENERAL: At the time of my exam, he is awake. He is currently in no acute respiratory distress. VITAL SIGNS: He is afebrile. Pulse is high, BP high HEENT: Normocephalic, atraumatic. Oropharynx is dry. Nasal mucosa is dry. NECK: Supple. LUNGS: Decreased at bases. HEART: Regular rate and rhythm without murmur. ABDOMEN: Soft, nontender. Very distended and tympanitic. EXTREMITIES: He has mild edema in the upper and lower extremities. NEUROLOGIC: He has right hemiparesis, expressive aphasia. LABORATORY DATA: K high - given Kayexelate. Ct doubled to 1.2 IMAGING: reports pdg ASSESSMENT: Resp failure, abd distension, history of seizure,history of CVA from a right intracranial hemorrhage, right hemiparesis, expressive aphasia, hypertension, coronary artery disease. PLAN: Admitted. His present medications have been resumed. DVT prophylaxis. Following up with GI. Nebulizers as needed. Fall precautions. renal, cardiology called. Jose J Oquendo MD Aug 28, 2018 13:02
--- NOTE | 2018-08-28 13:59 | NUR ---
RD ASSESSMENT & RECOMMENDATIONS SEE CARE ACTIVITY FOR COMPLETE ASSESSMENT DAILY ESTIMATED NEEDS: Needs based on cardiac, wound 62.7kg 25-30 kcals/kg 1014-9163 total kcals 1.25-1.5 g protein/kg 78-94 g total protein 25-30 mL/kg 0792-4816 total fluid mLs NUTRITION DIAGNOSIS: 1) Swallowing difficulty r/t dysphagia, h/o CVA as evidenced by pt is PEG dep, NPO at this time w/ GT to LIS. 2) Increased protein needs r/t wound healing as evidenced by R halux pressure injury CURRENT TF:NPO ENTERAL NUTRITION RECOMMENDATIONS: Glucerna 1.2 @ 55ml/hr x 24 hrs to provide 1320ml, 1584kcal, 79g prot, 1062ml free water - As medically able, rec to resume TF - Initiate Glucerna 1.2 @ 25ml/hr X 6 hrs, advance 10ml q 4-6 hrs as tolerated to goal rate. - HOB over 30 degrees/ water flush per PARENTERAL NUTRITION RECOMMENDATIONS: * CONSULT RD W/ PROLONGED NPO STATUS * ADDITIONAL RECOMMENDATIONS: 1) Calibrated bed scale wt (pt w/ added P200 mattress + pump) 2) Wound care: Add ALIS BID w/ GI access, rec wound eval 3) Monitor lytes w/ lasix, replete as needed 4) Monitor K closely, need for renal TF formula - critically elev upon adm, trending down at this time (on Kdur [facility]ITONE[facility] DIAL[facility] REGISTERED NURSE) 5) Monitor NPO status, need for TPN -> on GT to LIS at this time
--- NOTE | 2018-08-28 15:39 | NUR ---
NURSE NOTES:WOUND CARE NOTES:Pt presented on admission with loosening dry eschar L buttocks (L)2cm x (W)0.4cm .Periwound without erythema or induration .Sacral area pink and intact. Stable dry eschar with callused borders noted to R Hallux (L)1cm x (W)1cm. Both heels are boggy but blanchable. Recommendations:Apply Betadine to R hallux.Cover with Optifoam drsg Daily and prn. Apply Moisture Barrier Paste to L Buttocks .Cover with Optifoam drsg. Change Q 3days and prn. Apply Cavilon Skin Barrier to Both heels. Cover each heel with Optifoam drsg. Change Q 7days and prn. APM/AJ mattress overlay. Reposition at least every 2hours or as tolerated. Off-load heels with Pillow.
[2018-08-28 16:00] VITALS: BP 133/92
--- NOTE | 2018-08-28 19:19 | NUR ---
HAND-OFF: Report given to NAV Ellis. Stable condition.
--- NOTE | 2018-08-28 19:25 | NUR ---
NURSE NOTES: Observed pt lying on the bed. Awake and A/O x3. ST with hall monitor. On NC 4L, no signs of SOB noted. Gtube intact and patent and noted low continuous suction. PICC on L UA, intact and patent. Bed in the lowest position. Side rails up x3. Call light within reach. Will continue to monitor.
[2018-08-28 20:00] VITALS: BP 133/92
[2018-08-28] MEDS: Vancomycin 1.25mg/D5W 275ml IVPB SCH ×2 (20:21)
[2018-08-28] MEDS: Tamsulosin 0.4mg cap ORAL SCH (20:22)
[2018-08-28] MEDS ORDERED: Tamsulosin 0.4mg cap ORAL SCH (21:00)
[2018-08-29] VITALS (7 sets, daily range): BP systolic 122–144; BP diastolic 86–99
[2018-08-29] MEDS: Zosyn 3.375gm q8h **Extended infusion IVPB SCH ×8 (00:37→23:00)
[2018-08-29] MEDS: Albuterol/Ipratropium 3ml neb HHN SCH ×6 (03:36→23:00)
[2018-08-29 06:16] LABS: BASOPHILS % (AUTO) 0.5 % (0.0-2.0); EOSINOPHILS % (AUTO) 0.2 % (0.0-3.0); HEMATOCRIT 37.1 % (42.0-52.0); HEMOGLOBIN 12.2 G/DL (14.2-18.0); MEAN CORPUSCULAR VOLUME 90 FL (80-99); MONOCYTES % (AUTO) 11.4 % (1.0-10.0); NEUTROPHILS % (AUTO) 73.9 % (45.0-75.0); PLATELET COUNT 294 K/UL (150-450); RED BLOOD COUNT 4.11 M/UL (4.70-6.10); RED CELL DISTRIBUTION WIDTH 14.5 % (11.6-14.8)
[2018-08-29 06:44] LABS: ANION GAP 8 mmol/L (5-15); BLOOD UREA NITROGEN 20 mg/dL (7-18); CALCIUM 9.6 MG/DL (8.5-10.1); CARBON DIOXIDE 28 MMOL/L (21-32); CHLORIDE 106 MMOL/L (98-107); CREATININE 0.9 MG/DL (0.55-1.30); SODIUM 142 MMOL/L (136-145)
--- NOTE | 2018-08-29 07:00 | NUR ---
NURSE NOTES: Notified MD regarding K level. Will continue to monitor.
--- NOTE | 2018-08-29 07:40 | NUR ---
HAND-OFF: Report given to NAV Marte. No acute disterss noted at this time.
--- NOTE | 2018-08-29 07:41 | NUR ---
NURSE NOTES: RECEIVED PATIENT FROM Juana FITZGERALD RN. PATIENT IS LYING IN BED, AWAKE, RESPONSIVE. 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 ON ROOM AIR. NO SIGNS OF DISTRESS. GT IN PLACE, DRY AND INTACT CONNECTED TO LIS. NOTED GREENISH FLUID FROM GT TUBE. JOHNS NOTED. SKIN ALTERATION NOTED. PICC ON L UA, TKO. CALL LIGHT WITHIN REACH. BED AT LOWEST POSITION. SIDE RAILS UP. WILL CONTINUE TO MONITOR.
[2018-08-29] MEDS: Metoprolol Tartrate 50mg tab GT SCH ×2 (08:44→20:24)
[2018-08-29] MEDS: Pantoprazole Inj IVP SCH (08:49)
--- NOTE | 2018-08-29 09:31 | Diagnostic Imaging Report ---
Indication: Cough Technique: One view of the chest Comparison: 07/07/2018 Findings: Atelectatic bands are seen at the right lung base. There is suggestion of mild interstitial congestion. The colon is distended with gas. The heart is borderline enlarged. There is a left arm PICC now present Impression: Mild cardiomegaly Borderline interstitial congestion Right basilar atelectatic changes Colonic distention, also described on recent CT scan
--- NOTE | 2018-08-29 09:31 | Diagnostic Imaging Report ---
Indication: Abdominal pain Technique: Spiral acquisitions obtained through the abdomen and pelvis. No oral contrast utilized, per emergency room physician request No IV contrast utilized, per referring physician request.. Multiplanar reconstructions were generated. Total dose length product 1033.82 mGycm. CTDIvol(s) 17.73 mGy. Dose reduction achieved using automated exposure control Comparison: 05/30/2018 contrast study Findings: The transverse colon is distended by gas, as is a short segment of the sigmoid colon. No obstructive pathology is demonstrated, however. The appendix is not definitely demonstrated, but no findings to suggest acute appendicitis are evident. The distal ileum is distended by gas, but this extends to the ileocecal valve and no obstructive lesion is demonstrated. Other small bowel loops are prominent, gas-filled and fluid-filled. Considerable stool is seen in the ascending colon and distal colon although there is no distention by such. No free or loculated intraperitoneal gas or fluid is evident. No evidence of diverticulosis or diverticulitis. There is a gastrostomy in good position. There is a small sliding-type hiatal hernia. The duodenum is unremarkable. The hepatic flexure of the colon is now interposed between the anterior left hepatic lobe and left hemidiaphragm, and indents the anterior liver surface to some extent. This is a new finding. Since the previous exam, the colonic distention has increased somewhat. Lack of IV contrast limits assessment of the solid organs. The liver demonstrates some cysts in segment 5, also evident previously. The gallbladder, bile ducts, pancreas, spleen, adrenals are unremarkable. Calcifications are again demonstrated in the upper pole collecting system of the right kidney. A large cyst again comes off of the lower pole of the left kidney. No retroperitoneal or mesenteric mass or adenopathy. No pelvic mass or adenopathy. The bladder is empty, contains a Lynn catheter. The prostate is enlarged. There are small bilateral hydroceles in the scrotum The included lung bases demonstrate atelectasis and consolidation. The heart is mildly enlarged. The bones demonstrate extensive degenerative spondylosis changes, as well as evidence of ankylosis of the bilateral sacroiliac joints. There are extensive degenerative changes of the bilateral hips. Impression: Segmentally distended colon and distal small bowel, as described, without evidence of obstructive pathology. Most likely functional in nature No definite acute process otherwise Nonvisualized appendix Basilar pulmonary parenchymal atelectasis and consolidation Mild cardiomegaly Nonobstructive right upper pole intrarenal calculi Incidental findings as noted, including degenerative spondylosis, bilateral sacroiliac joint ankylosis, bilateral hip degeneration, prostatomegaly, Lynn catheter, left lower pole renal cyst, hepatic cysts, gastrostomy, hiatal hernia, scrotal hydroceles This agrees with the preliminary interpretation provided overnight by [facility] teleradiology service. The CT scanner at [facility] is accredited by the [employer] and the scans are performed using protocols designed to limit radiation exposure to as low as reasonably achievable to attain images of sufficient resolution adequate for diagnostic evaluation.
--- NOTE | 2018-08-29 09:32 | Diagnostic Imaging Report ---
Indication: Acute renal failure Technique: Grayscale and duplex images of the kidneys, retroperitoneum, and bladder were obtained. Comparison: none Findings: Exam is somewhat limited due to patient body habitus. Right kidney measures 9.5 cm in length. Left kidney not well visualized, measures 9.8 cm in length. Both kidneys demonstrate normal echogenicity. No hydronephrosis. Left kidney demonstrates a 7.1 cm cyst coming off of the lower pole. Normal inferior vena cava. Bladder is empty, contains a Lynn catheter. Inferior vena cava is not clearly demonstrated Impression: Limited exam as described Negative for hydronephrosis Left renal cyst incidentally noted.
--- NOTE | 2018-08-29 09:33 | Cardiology Report ---
APPROVED REPORT EXAM: Two-dimensional and M-mode echocardiogram with Doppler and color Doppler. INDICATION Congestive Heart Failure M-Mode DIMENSIONS IVSd0.9 (0.7-1.1cm)Left Atrium (MM)4.5 (1.6-4.0cm) LVDd5.2 (3.5-5.6cm)Aortic Root3.2 (2.0-3.7cm) PWd1.0 (0.7-1.1cm)Aortic Cusp Exc.2.0 (1.5-2.0cm) LVDs3.9 (2.5-4.0cm) PWs1.3 cm Technically difficult study due to poor acoustical windows. Normal left ventricular chamber size, systolic function and wall motion to extent visualized. Left ventricular ejection fraction estimated to be 55-60 %. Mild left ventricular hypertrophy by 2-D. No evidence of pericardial effusion. All other cardiac chamber sizes are within normal limits. Focal aortic valve sclerosis with adequate cusp excursion. Thickened mitral valve leaflets with normal excursion. Mitral annulus and aortic root calcification. Pulmonic valve not well visualized. Normal tricuspid valve structure. IVC at normal size with slight physiologic collapse. A color flow and spectral Doppler study was performed and revealed: Trace aortic regurgitation. Mild mitral regurgitation. Mitral inflow velocities indicates possible pseudo normalization pattern implying moderately elevated left atrial pressure (Grade II). Trace tricuspid regurgitation. Tricuspid systolic velocities suggests peak right ventricular systolic pressure of 17 mmHg.
--- NOTE | 2018-08-29 09:33 | Diagnostic Imaging Report ---
APPROVED REPORT CPT Code: 13987 Present Symptoms Shortness of breath Comments: TDS due to right knee contracture BILATERAL: Imaging reveals a patent deep venous system bilaterally. There is no evidence of thrombus within the common femoral, superficial femoral, popliteal or tibial segments. The greater saphenous veins are within normal limits. Doppler indicates normal spontaneous flow within these segments.
[2018-08-29] MEDS ORDERED: D5 1/2NS w/KCl 20mEq 1,000 ML IV SCH (10:00)
--- NOTE | 2018-08-29 11:58 | GI Progress Note ---
Assessment/Plan Problems: (1) Colon distention ICD Codes: K63.89 - Other specified diseases of intestine SNOMED: 684671070 (2) Constipated ICD Codes: K59.00 - Constipation, unspecified SNOMED: 24079311 (3) SBO (small bowel obstruction) ICD Codes: K56.609 - Unspecified intestinal obstruction, unspecified as to partial versus complete obstruction SNOMED: 598492251 (4) Ileus ICD Codes: K56.7 - Ileus, unspecified SNOMED: 076462106 (5) Abdominal distension ICD Codes: R14.0 - Abdominal distension (gaseous) SNOMED: 97847202 Status: progressing Status Narrative Discussed with Dr. Parra. Assessment/Plan abdominal distention greatly improved CT AP reviewed, SB and sigmoid distention more likely functional in nature insert rectal tube for colonic decompression reglan ATC okay to start GTFs Antibiotics per infectious disease zinc oxide daily around GT site daily GT site care 3 times daily and as needed PPI GTFs per RD when cleared Follow labs The patient was seen and examined at bedside and all new and available data was reviewed in the patients chart. I agree with the above findings, impression and plan. (Patient seen earlier today. Signature stamp does not reflect patient encounter time.). - Homar Parra MD Subjective Subjective LIMITED Objective Last 24 Hour Vital Signs Date Time Temp Pulse Resp B/P (MAP) Pulse Ox O2 Delivery O2 Flow Rate FiO2 08/29/18 09:47 97.5 113 18 141/99 (113) 95 08/29/18 08:44 118 144/105 08/29/18 08:00 113 08/29/18 08:00 Nasal Cannula 4.0 08/29/18 08:00 97.5 113 18 141/99 (113) 95 08/29/18 07:28 109 18 98 Nasal Cannula 2.0 28 08/29/18 07:21 109 20 95 Room Air 21 08/29/18 07:21 95 Room Air 21 08/29/18 07:21 Room Air 21 08/29/18 04:00 98.6 121 24 122/86 (98) 98 08/29/18 04:00 119 08/29/18 04:00 Nasal Cannula 4.0 08/29/18 03:49 116 18 98 Nasal Cannula 2.0 28 3/14/19 03:39 118 20 96 Nasal Cannula 2.0 28 08/29/18 00:00 111 08/29/18 00:00 97.8 122 24 135/88 (104) 100 08/29/18 00:00 Nasal Cannula 4.0 08/28/18 23:29 108 18 99 Nasal Cannula 2.0 28 08/28/18 23:20 110 20 99 Nasal Cannula 3.0 32 08/28/18 20:00 Nasal Cannula 4.0 08/28/18 20:00 98.5 115 24 133/92 (106) 100 08/28/18 20:00 115 08/28/18 19:59 120 18 100 Nasal Cannula 4.0 08/28/18 19:58 97 Nasal Cannula 4.0 36 08/28/18 19:58 Nasal Cannula 4.0 36 08/28/18 19:50 117 20 97 Nasal Cannula 4.0 36 08/28/18 16:00 97.7 121 18 133/92 (106) 97 08/28/18 16:00 Nasal Cannula 4.0 08/28/18 16:00 131 08/28/18 15:37 110 20 100 Nasal Cannula 4.0 08/28/18 15:17 107 20 97 Nasal Cannula 4.0 08/28/18 12:00 116 08/28/18 12:00 97.3 119 20 124/91 (102) 98 08/28/18 12:00 Nasal Cannula 4.0 Intake and Output 08/28/18 08/29/18 19:00 07:00 Intake Total 192.5 ml 385.0 ml Output Total 2625 ml Balance -2432.5 ml 385.0 ml Intake IV Total 192.5 ml 385.0 ml Output Urine Total 2425 ml Gastric Drainage Total 200 ml Laboratory Tests Test 08/29/18 04:25 White Blood Count 7.0 K/UL (4.8-10.8) Red Blood Count 4.11 M/UL (4.70-6.10) L Hemoglobin 12.2 G/DL (14.2-18.0) L Hematocrit 37.1 % (42.0-52.0) L Mean Corpuscular Volume 90 FL (80-99) Mean Corpuscular Hemoglobin 29.8 PG (27.0-31.0) Mean Corpuscular Hemoglobin Concent 33.0 G/DL (32.0-36.0) Red Cell Distribution Width 14.5 % (11.6-14.8) Platelet Count 294 K/UL (150-450) Mean Platelet Volume 5.8 FL (6.5-10.1) L Neutrophils (%) (Auto) 73.9 % (45.0-75.0) Lymphocytes (%) (Auto) 14.0 % (20.0-45.0) L Monocytes (%) (Auto) 11.4 % (1.0-10.0) H Eosinophils (%) (Auto) 0.2 % (0.0-3.0) Basophils (%) (Auto) 0.5 % (0.0-2.0) Sodium Level 142 MMOL/L (136-145) Potassium Level 3.0 MMOL/L (3.5-5.1) L Chloride Level 106 MMOL/L (98-107) Carbon Dioxide Level 28 MMOL/L (21-32) Anion Gap 8 mmol/L (5-15) Blood Urea Nitrogen 20 mg/dL (7-18) H Creatinine 0.9 MG/DL (0.55-1.30) Estimat Glomerular Filtration Rate > 60 mL/min (>60) Glucose Level 118 MG/DL (74-106) H Calcium Level 9.6 MG/DL (8.5-10.1) Pro-B-Type Natriuretic Peptide 494 pg/mL (0-125) H Height (Feet): 5 Height (Inches): 6.00 Weight (Pounds): 139 General Appearance: WD/WN, no apparent distress, alert Cardiovascular: normal rate Respiratory/Chest: normal breath sounds, no respiratory distress Abdominal Exam: normal bowel sounds, non tender, soft, distended - greatly improved Extremities: non-tender Raudel Joyce NP Aug 29, 2018 11:58
--- NOTE | 2018-08-29 13:13 | Consultation ---
DATE OF CONSULTATION: 08/28/2018 NEPHROLOGY CONSULTATION CONSULTING PHYSICIAN: Stuart Moyer M.D. REFERRING PHYSICIAN: Jose J Oquendo M.D. REASON FOR CONSULTATION: Acute kidney injury and hyperkalemia. HISTORY OF PRESENT ILLNESS: This is a very pleasant 63-year-old male, who is a resident of a shelter. He has underlying dementia, has had previous stroke, is not able to give me a very fruitful history, is being brought to the emergency room of [facility], has been admitted after he has had some increasing shortness of breath. He also has very distended abdomen with some tympanic sounds into. He is not able to give me a very fruitful history. His baseline serum creatinine being in the range of 0.6 mg/dL, has gone up to about 1.2 mg/dL and his potassium was 6.8, has been started on normal saline at 100 mL/hour. He is on O2 via nasal cannula. He is complaining of some shortness of breath. Chest x-ray is showing some interstitial pattern with apical redistribution of the vessels, some cardiomegaly. I have been asked to see him for this worsening kidney function and hyperkalemia. PAST MEDICAL HISTORY: Significant for previous septicemia, ileus, small bowel obstruction, dysphagia status post G-tube placement, hypertension, previous cellulitis, left hemispheric CVA with right-sided hemiplegia. PAST SURGICAL HISTORY: Status post fibula fracture, status post G-tube placement. MEDICATIONS: Prior to admission albuterol nebulizer every four hours as needed, amlodipine 10 mg daily, Dulcolax 10 mg rectally as needed, calcium carbonate 600 mg per G-tube daily, clonidine patch apply every week, clonidine 0.2 mg per G-tube every 4 hours as needed, enalapril 20 mg per G-tube q.12 hours, Proscar 5 mg per G-tube daily, hydrocodone 5/325 one tablet per G-tube every 4 hours as needed, Prevacid 30 mg per G-tube daily, lisinopril 20 mg per G-tube daily, metoprolol 100 mg per G-tube every 8 hours, MiraLAX 17 gram per G-tube daily, potassium chloride 20 mEq per G-tube t.i.d., sodium chloride 1 gram per G-tube b.i.d., Flomax 0.4 mg per G-tube daily. SOCIAL HISTORY: He is a resident of a shelter. REVIEW OF SYSTEMS: Unable to give me a very fruitful history. PHYSICAL EXAMINATION: GENERAL: He does not seem to be in much acute distress, lying down in bed. VITAL SIGNS: Blood pressure is 112/68, pulse of 126, respirations 22, temperature 98.8 HEENT: Head is atraumatic. Eyes, pupils reactive to light. He has right-sided facial droop. NECK: Supple. Jugular venous distention is somewhat increased. HEART: Regular rhythm. No gallop. LUNGS: Few expiratory wheezes and few crackles in both bases. ABDOMEN: Bowel sounds diminished. Abdomen is distended, very tympanic in percussion. EXTREMITIES: Lower extremity shows 2+ pedal edema. NEUROLOGICAL: He has right-sided hemiplegia, somewhat aphasic and disoriented. LABORATORY DATA: Sodium 141, potassium 5.2 now, chloride is 106, carbon dioxide 26, BUN is 34, creatinine is 1.2. Troponin 0. Alkaline phosphatase 183. IMPRESSION: 1. Acute kidney injury is most likely secondary to prerenal state caused by congestive heart failure and I am suspecting cardiorenal syndrome. 2. Clinically, he seems to be in congestive heart failure. 3. Distended abdomen with enlarge bowels, rule out small bowel obstruction versus ileus. 4. Hyperkalemia due to the fact that he has been on lisinopril and potassium supplementation as well as prerenal state causing low sodium delivery today in distal tubules. PLAN: 1. I agree with the discontinuation of the lisinopril. 2. I would discontinue IV fluids. 3. We will give him some Lasix. 4. He needs to have a 2D echo performed. 5. A renal ultrasound is going to be ordered. At the end, I would like to thank you, Dr. Oquendo, for letting me be involved in care of this very nice gentleman. Please do not hesitate to contact me if you have any questions. Sincerely, Stuart Moyer M.D. DR: Kristan JOB#: [id number] CC:
--- NOTE | 2018-08-29 13:14 | Progress Note ---
DATE: 08/28/2018 CARDIOLOGY PROGRESS NOTE: SUBJECTIVE: The patient has improvement in respiratory parameters and has come off BiPAP support. The patient's potassium was corrected with several doses of Kayexalate. Monitored rhythm remains sinus and sinus tachycardia with no significant pauses or bradyarrhythmias. The patient had an echocardiogram today that revealed normal ejection fraction, mild mitral regurgitation with diastolic dysfunction, and normal PA systolic pressure. OBJECTIVE: VITAL SIGNS: Blood pressure 133/92, heart rate 115, respiratory rate 24, afebrile. LUNGS: Coarse breath sounds. Scattered rhonchi. HEART: Regular rhythm. Rapid rate. Normal S1, S2 with a fourth heart sound. ABDOMEN: Soft. G-tube intact. EXTREMITIES: Trace dependent edema. NEUROLOGIC: Right hemiparesis. Expressive dysphagia. IMPRESSION: 1. Healthcare-acquired aspiration pneumonia. 2. Acute respiratory insufficiency, resolved. 3. Acute myocardial ischemia, resolved. 4. Hypokalemia, corrected. 5. Hypovolemia, corrected. 6. Secondary sinus tachycardia may be due to beta-josh withdrawal. PLAN: 1. Continue antimicrobials. 2. Bronchodilators. 3. Respiratory hygiene. 4. Discontinue IV fluids. 5. Continue to hold diuretics. 6. Continue to hold angiotensin-converting enzyme inhibitors. 7. Restart beta-josh. 8. DVT and stress ulcer prophylaxes. Fuentes Gutierres M.D. DR: NONA JOB#: [id number] CC:
--- NOTE | 2018-08-29 13:14 | Consultation ---
DATE OF CONSULTATION: 08/27/2018 CARDIOLOGY CONSULT: TIME SEEN: 11 p.m. CONSULTING PHYSICIAN: Fuentes Gutierres M.D. REFERRING PHYSICIAN: Jose J Oquendo M.D. REASON FOR CONSULTATION: Elevated troponin level and acute respiratory distress. HISTORY OF PRESENT ILLNESS: This is an elderly male, age 63 who resides at a assisted facility and is debilitated due to a prior hemorrhagic stroke with resultant aphasia, dysphagia, and right hemiparesis. He was transferred to the emergency room with respiratory distress. On arrival, he required initiation of BiPAP support. He was noted to have abnormal cardiac enzymes. I have been asked to assist with cardiovascular care. The patient was also noted to have an elevated potassium level with concern raised over conduction system abnormalities as a result. PAST MEDICAL HISTORY: Includes: 1. CVA with right hemiparesis. 2. Expressive aphasia. 3. Dysphagia with G-tube. 4. Hypertensive heart disease. 5. Coronary artery disease. 6. COPD. 7. Seizure disorder. 8. History of G-tube cellulitis. MEDICATIONS: Prior to admission, reviewed and reconciled. ALLERGIES: None known. SOCIAL HISTORY: Not obtainable. REVIEW OF SYSTEMS: Unavailable from the patient and chart review is performed for pertinent data as outlined above. PHYSICAL EXAMINATION: GENERAL: Awake and in moderate respiratory distress on a BiPAP mask. VITAL SIGNS: Blood pressure 130/85, pulse 125, respirations 26, afebrile. LUNGS: Coarse breath sounds. Scattered rhonchi. Accessory muscle use. HEART: Regular rhythm. Rapid rate. Normal S1, S2 with no appreciable murmur, but respiratory sounds are loud. ABDOMEN: Soft, nontender with G-tube intact. EXTREMITIES: Without clubbing or cyanosis. No edema. There is right-sided hemiparesis and aphasia. LABORATORY DATA: White count 11.8, hemoglobin 13.5. ABG 7.41, 35, 135. Sodium 138, potassium 6.7, bicarb 24, BUN 41, creatinine 1.2, glucose 108. Troponin 0. Albumin 3.7. EKG reveals sinus tachycardia with nonspecific ST-T wave changes. Chest x-ray reveals left-sided infiltrate and mild pulmonary venous congestion. Urinalysis with 15 to 20 white cells and many yeasts. IMPRESSION: 1. Acute respiratory insufficiency. 2. Healthcare-acquired pneumonia. 3. Secondary sinus tachycardia. 4. Acute myocardial ischemia. 5. Possible fungal cystitis. 6. Probable aspiration pneumonia. 7. History of hypertension. 8. Cerebrovascular disease with right hemiparesis, aphasia, and dysphagia. 9. Hyperkalemia. 10. Prerenal azotemia. 11. Acute kidney insufficiency. PLAN: 1. Hydration with saline. 2. Kayexalate by G-tube. 3. Repeat electrolytes. 4. Cardiac monitoring. 5. Observe for bradyarrhythmias. 6. Woods culture. 7. Broad-spectrum antibiotics. 8. Respiratory hygiene. 9. No potassium replacement. 10. Hold angiotensin-converting enzyme inhibitor therapy. 11. Hold beta-josh until potassium is corrected. 12. No current need for additional antihypertensives. 13. BiPAP support. Fuentes Gutierres M.D. DR: NONA JOB#: [id number] CC:
[2018-08-29] MEDS: Metoclopramide 10mg/2ml Inj IVP SCH ×2 (14:33→22:55)
--- NOTE | 2018-08-29 15:43 | Nephrology Progress Note ---
Assessment/Plan Assessment 1) RANCHO most likely due to cardio-renal syndrome, improved with diuresis 2) Hypokalemia 3) CHF has improved Plan: No IV fluid please Replete K Will check CXR again today Subjective Subjective He had a very good diuresis with lasix yesterday, I/O -2 L, much less sob, creat is down to 0.9, K is 3.0 Objective Objective Last 24 Hour Vital Signs Date Time Temp Pulse Resp B/P (MAP) Pulse Ox O2 Delivery O2 Flow Rate FiO2 08/29/18 12:11 Nasal Cannula 4.0 08/29/18 12:00 97.7 94 20 144/97 (113) 95 08/29/18 11:35 Room Air 08/29/18 11:35 Room Air 08/29/18 09:47 97.5 113 18 141/99 (113) 95 08/29/18 08:44 118 144/105 08/29/18 08:00 113 08/29/18 08:00 Nasal Cannula 4.0 08/29/18 08:00 97.5 113 18 141/99 (113) 95 08/29/18 07:28 109 18 98 Nasal Cannula 2.0 28 08/29/18 07:21 109 20 95 Room Air 21 08/29/18 07:21 95 Room Air 21 08/29/18 07:21 Room Air 21 08/29/18 04:00 98.6 121 24 122/86 (98) 98 08/29/18 04:00 119 08/29/18 04:00 Nasal Cannula 4.0 08/29/18 03:49 116 18 98 Nasal Cannula 2.0 28 08/29/18 03:39 118 20 96 Nasal Cannula 2.0 28 08/29/18 00:00 111 08/29/18 00:00 97.8 122 24 135/88 (104) 100 08/29/18 00:00 Nasal Cannula 4.0 08/28/18 23:29 108 18 99 Nasal Cannula 2.0 28 08/28/18 23:20 110 20 99 Nasal Cannula 3.0 32 08/28/18 20:00 Nasal Cannula 4.0 08/28/18 20:00 98.5 115 24 133/92 (106) 100 08/28/18 20:00 115 08/28/18 19:59 120 18 100 Nasal Cannula 4.0 08/28/18 19:58 97 Nasal Cannula 4.0 36 08/28/18 19:58 Nasal Cannula 4.0 36 08/28/18 19:50 117 20 97 Nasal Cannula 4.0 36 08/28/18 16:00 97.7 121 18 133/92 (106) 97 08/28/18 16:00 Nasal Cannula 4.0 08/28/18 16:00 131 Intake and Output 08/28/18 08/29/18 19:00 07:00 Intake Total 192.5 ml 385.0 ml Output Total 2625 ml Balance -2432.5 ml 385.0 ml Intake IV Total 192.5 ml 385.0 ml Output Urine Total 2425 ml Gastric Drainage Total 200 ml Laboratory Tests 08/29/18 04:25: White Blood Count 7.0, Red Blood Count 4.11L, Hemoglobin 12.2L, Hematocrit 37.1L , Mean Corpuscular Volume 90, Mean Corpuscular Hemoglobin 29.8, Mean Corpuscular Hemoglobin Concent 33.0, Red Cell Distribution Width 14.5, Platelet Count 294, Mean Platelet Volume 5.8L, Neutrophils (%) (Auto) 73.9, Lymphocytes ( %) (Auto) 14.0L, Monocytes (%) (Auto) 11.4H, Eosinophils (%) (Auto) 0.2, Basophils (%) (Auto) 0.5, Sodium Level 142, Potassium Level 3.0L, Chloride Level 106, Carbon Dioxide Level 28, Anion Gap 8, Blood Urea Nitrogen 20H, Creatinine 0.9, Estimat Glomerular Filtration Rate > 60, Glucose Level 118H, Calcium Level 9.6, Pro-B-Type Natriuretic Peptide 494H Height (Feet): 5 Height (Inches): 6.00 Weight (Pounds): 139 General Appearance: WD/WN, no apparent distress EENT: PERRL/EOMI Neck: non-tender Cardiovascular: normal rate, regular rhythm, JVD - nl Respiratory/Chest: decreased breath sounds Abdomen: non tender, soft Neurologic: other - R sided hemiplegia Stuart Moyer MD Aug 29, 2018 15:42
--- NOTE | 2018-08-29 16:04 | Pulmonology Progress Note ---
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 much better with diuresis echo with diastolic dysfcn doubt pneumonia abd less distended, tolerating start of feeding disc w sister at bedside Subjective ROS Limited/Unobtainable: Yes Allergies: Coded Allergies: NO KNOWN ALLERGIES (Unverified Allergy, Unknown, 03/02/15) Objective Last 24 Hour Vital Signs Date Time Temp Pulse Resp B/P (MAP) Pulse Ox O2 Delivery O2 Flow Rate FiO2 08/29/18 15:20 Room Air 08/29/18 15:20 Room Air 08/29/18 12:11 Nasal Cannula 4.0 08/29/18 12:00 97.7 94 20 144/97 (113) 95 08/29/18 11:35 Room Air 08/29/18 11:35 Room Air 08/29/18 09:47 97.5 113 18 141/99 (113) 95 08/29/18 08:44 118 144/105 08/29/18 08:00 113 08/29/18 08:00 Nasal Cannula 4.0 08/29/18 08:00 97.5 113 18 141/99 (113) 95 08/29/18 07:28 109 18 98 Nasal Cannula 2.0 28 08/29/18 07:21 109 20 95 Room Air 21 08/29/18 07:21 95 Room Air 21 08/29/18 07:21 Room Air 21 08/29/18 04:00 98.6 121 24 122/86 (98) 98 08/29/18 04:00 119 08/29/18 04:00 Nasal Cannula 4.0 08/29/18 03:49 116 18 98 Nasal Cannula 2.0 28 08/29/18 03:39 118 20 96 Nasal Cannula 2.0 28 08/29/18 00:00 111 08/29/18 00:00 97.8 122 24 135/88 (104) 100 08/29/18 00:00 Nasal Cannula 4.0 08/28/18 23:29 108 18 99 Nasal Cannula 2.0 28 08/28/18 23:20 110 20 99 Nasal Cannula 3.0 32 08/28/18 20:00 Nasal Cannula 4.0 08/28/18 20:00 98.5 115 24 133/92 (106) 100 08/28/18 20:00 115 08/28/18 19:59 120 18 100 Nasal Cannula 4.0 08/28/18 19:58 97 Nasal Cannula 4.0 36 08/28/18 19:58 Nasal Cannula 4.0 36 08/28/18 19:50 117 20 97 Nasal Cannula 4.0 36 Intake and Output 08/28/18 08/29/18 19:00 07:00 Intake Total 192.5 ml 385.0 ml Output Total 2625 ml Balance -2432.5 ml 385.0 ml Intake IV Total 192.5 ml 385.0 ml Output Urine Total 2425 ml Gastric Drainage Total 200 ml General Appearance: no acute distress HEENT: atraumatic Respiratory/Chest: lungs clear Cardiovascular: normal rate Abdomen: soft, non tender, distended Microbiology Date/Time Source Procedure Growth Status 08/27/18 19:45 Blood Blood Culture - Preliminary NO GROWTH AFTER 24 HOURS Resulted 08/27/18 19:30 Blood Blood Culture - Preliminary NO GROWTH AFTER 24 HOURS Resulted 08/28/18 08:46 Sputum Gram Stain - Final Resulted 08/28/18 08:46 Sputum Culture - Preliminary Gram Negative Bacillus 1 Resulted 08/27/18 19:45 Urine,Clean Catch Urine Culture - Preliminary NO GROWTH Resulted Laboratory Tests 08/29/18 04:25: White Blood Count 7.0, Red Blood Count 4.11L, Hemoglobin 12.2L, Hematocrit 37.1L , Mean Corpuscular Volume 90, Mean Corpuscular Hemoglobin 29.8, Mean Corpuscular Hemoglobin Concent 33.0, Red Cell Distribution Width 14.5, Platelet Count 294, Mean Platelet Volume 5.8L, Neutrophils (%) (Auto) 73.9, Lymphocytes ( %) (Auto) 14.0L, Monocytes (%) (Auto) 11.4H, Eosinophils (%) (Auto) 0.2, Basophils (%) (Auto) 0.5, Sodium Level 142, Potassium Level 3.0L, Chloride Level 106, Carbon Dioxide Level 28, Anion Gap 8, Blood Urea Nitrogen 20H, Creatinine 0.9, Estimat Glomerular Filtration Rate > 60, Glucose Level 118H, Calcium Level 9.6, Pro-B-Type Natriuretic Peptide 494H Current Medications Medications (Trade) Dose Ordered Sig/Kehinde Route PRN Reason Start Time Stop Time Status Last Admin Dose Admin Acetaminophen (Tylenol) 650 mg Q4H PRN GT Mild Pain/Temp > 100.5 08/28/18 04:00 09/27/18 03:59 Albuterol/ Ipratropium (Albuterol/ Ipratropium) 3 ml Q4HRT HHN 08/28/18 15:00 09/02/18 14:59 08/29/18 07:20 Chlorhexidine Gluconate (Ivett-Hex 2%) 1 applic DAILY TOPIC 08/29/18 20:00 09/27/18 19:59 Clonidine HCl (Catapres Tab) 0.1 mg Q3HR PRN GT SBP >150 08/28/18 04:30 09/27/18 04:14 Metoclopramide HCl (Reglan) 10 mg Q8HR IVP 08/29/18 14:00 09/28/18 13:59 08/29/18 14:33 Metoprolol Tartrate (Lopressor) 50 mg Q12HR GT 08/29/18 09:00 09/28/18 08:59 08/29/18 08:44 Ondansetron HCl (Zofran) 4 mg Q4HR PRN IVP nausea/vomiting 08/28/18 04:30 09/27/18 04:14 Pantoprazole (Protonix) 40 mg DAILY IVP 08/28/18 09:00 09/27/18 08:59 08/29/18 08:49 Piperacillin Sod/ Tazobactam Sod 3.375 gm/Sodium Chloride 110 ml @ 27.5 mls/hr Q8H IVPB 08/28/18 08:00 09/04/18 07:59 08/29/18 15:51 Potassium Chloride (K-Dur) 20 meq ONCE NG 08/29/18 15:41 08/29/18 16:41 08/29/18 15:51 Tamsulosin HCl (Flomax) 0.4 mg BEDTIME ORAL 08/28/18 21:00 09/27/18 20:59 08/28/18 20:22 Vancomycin HCl (Vanco rx to dose) 1 ea DAILY PRN MISC Per rx protocol 08/28/18 04:15 09/27/18 03:59 Vancomycin HCl 1.25 gm/Dextrose 275 ml @ 183.333 mls/hr Q24H IVPB 08/28/18 21:00 09/02/18 20:59 08/28/18 20:21 Jose J Oquendo MD Aug 29, 2018 16:04
--- NOTE | 2018-08-29 19:23 | NUR ---
HAND-OFF: Report given to Rajani Gomez RN.
--- NOTE | 2018-08-29 19:24 | NUR ---
NURSE NOTES: BEDSIDE REPORT RECEIVED FROM NAV COONEY. PT IS X3-4, NONVERBAL, ABLE TO SHAKE HEAD YES/NO. RA, SATING WELL. CGT HELD D/T DISTENTION. RT ORDERED FOR POTENTIAL PROCEDURE W/ GO LYTELY. JOHNS NOTED, DRAINING. SKIN IS CLEAN AND DRY, DRESSINGS INTACT. SEJAL PICC NOTED; ASYMPTOMATIC. LOW K, 20 MEQ K GIVEN ON AM SHIFT, OTHER LABS OK. BED IS LOCKED IN LOWEST POSITION, SR X3, CALL NIXON W/ IN REACH, BED ALARM ON, SZ PRECAUTIONS CTND. WILL CONTINUE TO MONITOR AND FOLLOW PLAN OF CARE.
[2018-08-29] MEDS ORDERED: Dyna-Hex 2% Top Sol 2oz TOPIC SCH (20:00)
[2018-08-29] MEDS: Vancomycin 1.25mg/D5W 275ml IVPB SCH ×2 (20:23)
[2018-08-29] MEDS: Tamsulosin 0.4mg cap ORAL SCH (20:24)
[2018-08-30] VITALS: BP 140/96
[2018-08-30] MEDS: Albuterol/Ipratropium 3ml neb HHN SCH ×6 (03:00→23:41)
[2018-08-30 04:00] VITALS: BP 135/96
--- NOTE | 2018-08-30 05:15 | Progress Note ---
DATE: 08/29/2018 CARDIOLOGY PROGRESS NOTE SUBJECTIVE: There is some improvement in his respiratory parameters, episodically off BiPAP support. Monitored sinus rhythm. Sinus tachycardia. Occasional ectopic. OBJECTIVE: VITAL SIGNS: Blood pressure 127/94, pulse 98, respirations 24, and afebrile. LUNGS: Coarse breath sounds. Scattered rhonchi. HEART: Regular rhythm and rate. Normal S1 and S2. ABDOMEN: Soft. EXTREMITIES: Trace edema. Hemiparesis without change. LABORATORY DATA: White count 7 and hemoglobin 12. Potassium 3, BUN 20, and creatinine 0.9. Pro-natriuretic peptide 494. IMPRESSION: 1. Sepsis. 2. Respiratory insufficiency. 3. Pneumonia. 4. Cerebrovascular accident with aphasia. 5. Coronary atherosclerosis. 6. Acute on chronic diastolic congestive heart failure. 7. Hypertensive heart disease. 8. Hyperkalemia. Recovered hypokalemia present. PLAN: 1. Antimicrobials. 2. Respiratory hygiene. 3. Diuresis. 4. DVT and stress ulcer prophylaxis. 5. Normalized potassium levels. Fuentes Gutierres M.D. DR: JUSTIN JOB#: [id number] CC:
[2018-08-30] MEDS: Metoclopramide 10mg/2ml Inj IVP SCH ×2 (05:39→17:23)
[2018-08-30 05:59] LABS: BASOPHILS % (AUTO) 1.2 % (0.0-2.0); HEMOGLOBIN 12.5 G/DL (14.2-18.0); LYMPHOCYTES % (AUTO) 11.7 % (20.0-45.0); MEAN CORPUSCULAR VOLUME 91 FL (80-99); MONOCYTES % (AUTO) 9.2 % (1.0-10.0); NEUTROPHILS % (AUTO) 76.9 % (45.0-75.0); PLATELET COUNT 298 K/UL (150-450); RED BLOOD COUNT 4.18 M/UL (4.70-6.10); RED CELL DISTRIBUTION WIDTH 14.2 % (11.6-14.8); WHITE BLOOD COUNT 6.3 K/UL (4.8-10.8)
[2018-08-30 06:18] LABS: ANION GAP 8 mmol/L (5-15); BLOOD UREA NITROGEN 25 mg/dL (7-18); CALCIUM 9.7 MG/DL (8.5-10.1); CARBON DIOXIDE 24 MMOL/L (21-32); CHLORIDE 110 MMOL/L (98-107); CREATININE 0.7 MG/DL (0.55-1.30); POTASSIUM 3.8 MMOL/L (3.5-5.1); SODIUM 142 MMOL/L (136-145)
--- NOTE | 2018-08-30 07:05 | NUR ---
HAND-OFF: Report given to NAV COONEY.
--- NOTE | 2018-08-30 07:06 | NUR ---
NURSE NOTES: RECEIVED PATIENT FROM Rajani BONE RN. PATIENT IS LYING IN BED, ASLEEP. 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 ON ROOM AIR. NO SIGNS OF DISTRESS. GT IN PLACE, DRY AND INTACT CONNECTED TO LIS. RECTAL TUBE NOTED. JOHNS NOTED. SKIN ALTERATION NOTED. ON OVERLAY MATTRESS. PICC ON L UA, SL. CALL LIGHT WITHIN REACH. BED AT LOWEST POSITION. SIDE RAILS UP. WILL CONTINUE TO MONITOR.
[2018-08-30 08:00] VITALS: BP 145/104
[2018-08-30] MEDS: Zosyn 3.375gm q8h **Extended infusion IVPB SCH ×4 (08:39→17:23)
[2018-08-30] MEDS: Pantoprazole Inj IVP SCH (08:39)
[2018-08-30] MEDS: Metoprolol Tartrate 50mg tab GT SCH ×2 (08:41→20:36)
[2018-08-30] MEDS ORDERED: Lisinopril 20mg tab ORAL SCH (09:00)
--- NOTE | 2018-08-30 09:10 | NUR ---
RADIOLOGY DEPT., CHEST X-RAY DONE..-P.DYE
--- NOTE | 2018-08-30 09:37 | Diagnostic Imaging Report ---
Indication: Shortness of breath Technique: One view of the chest Comparison: 08/27/2018 Findings: Patient is rotated to the left. Stable satisfactory position of left arm PICC. The heart is enlarged. No definite infiltrates, effusions, or congestion. Previously demonstrated interstitial congestive changes have improved Impression: Cardiomegaly. No definite acute process
[2018-08-30 12:00] VITALS: BP 151/107
--- NOTE | 2018-08-30 12:27 | General Progress Note ---
Assessment/Plan Problem List: (1) Colon distention ICD Codes: K63.89 - Other specified diseases of intestine SNOMED: 855355983 (2) Ileus ICD Codes: K56.7 - Ileus, unspecified SNOMED: 569545874 (3) HTN (hypertension) ICD Codes: I10 - Essential (primary) hypertension SNOMED: 39108618 Assessment/Plan abdominal distention greatly improved CT AP reviewed, SB and sigmoid distention more likely functional in nature insert rectal tube for colonic decompression reglan ATC start GTFs Antibiotics per infectious disease zinc oxide daily around GT site daily GT site care 3 times daily and as needed PPI frequent turning in bed Follow lab Subjective ROS Limited/Unobtainable: No Allergies: Coded Allergies: NO KNOWN ALLERGIES (Unverified Allergy, Unknown, 03/02/15) Objective Last 24 Hour Vital Signs Date Time Temp Pulse Resp B/P (MAP) Pulse Ox O2 Delivery O2 Flow Rate FiO2 08/30/18 10:44 82 20 99 Room Air 21 08/30/18 10:33 86 20 96 Room Air 21 08/30/18 08:42 145/104 08/30/18 08:41 97 145/104 08/30/18 08:00 Room Air 08/30/18 08:00 98.4 97 21 145/104 (118) 99 08/30/18 07:56 84 20 98 Room Air 21 08/30/18 07:54 Room Air 21 08/30/18 07:54 96 Room Air 08/30/18 07:50 81 20 95 Room Air 21 08/30/18 04:31 Room Air 08/30/18 04:30 Room Air 08/30/18 04:00 97.5 86 24 135/96 (109) 96 08/30/18 04:00 63 08/30/18 04:00 Room Air 08/30/18 00:50 Nasal Cannula 2.0 28 08/30/18 00:50 Nasal Cannula 2.0 28 08/30/18 00:00 87 08/30/18 00:00 Room Air 08/30/18 00:00 97.5 86 24 140/96 (111) 100 08/29/18 20:24 98 127/94 08/29/18 20:00 87 08/29/18 20:00 Room Air 08/29/18 20:00 97.5 98 24 127/94 (105) 98 08/29/18 19:28 90 20 99 Nasal Cannula 2.0 28 08/29/18 19:15 Nasal Cannula 4.0 36 08/29/18 19:15 84 20 99 Nasal Cannula 2.0 28 08/29/18 19:14 99 Nasal Cannula 4.0 36 08/29/18 16:00 Nasal Cannula 4.0 08/29/18 16:00 97.9 92 20 138/98 (111) 95 08/29/18 15:20 Room Air 08/29/18 15:20 Room Air 08/29/18 15:10 93 Intake and Output 08/29/18 08/30/18 19:00 07:00 Intake Total 415 ml 0 ml Output Total 1700 ml 900 ml Balance -1285 ml -900 ml Intake IV Total 335 ml Tube Feeding 30 ml 0 ml Other 50 ml Output Urine Total 1700 ml 900 ml Laboratory Tests 08/30/18 04:00: White Blood Count 6.3, Red Blood Count 4.18L, Hemoglobin 12.5L, Hematocrit 38.0L , Mean Corpuscular Volume 91, Mean Corpuscular Hemoglobin 29.8, Mean Corpuscular Hemoglobin Concent 32.9, Red Cell Distribution Width 14.2, Platelet Count 298, Mean Platelet Volume 5.8L, Neutrophils (%) (Auto) 76.9H, Lymphocytes (%) (Auto) 11.7L, Monocytes (%) (Auto) 9.2, Eosinophils (%) (Auto) 1.0, Basophils (%) (Auto) 1.2, Sodium Level 142, Potassium Level 3.8, Chloride Level 110H, Carbon Dioxide Level 24, Anion Gap 8, Blood Urea Nitrogen 25H, Creatinine 0.7, Estimat Glomerular Filtration Rate > 60, Glucose Level 100, Calcium Level 9.7 Height (Feet): 5 Height (Inches): 6.00 Weight (Pounds): 139 General Appearance: lethargic EENT: normal ENT inspection Neck: supple Cardiovascular: normal rate Respiratory/Chest: decreased breath sounds Abdomen: soft, hypoactive bowel sounds, distended Extremities: non-tender Homar Parra MD Aug 30, 2018 12:27
--- NOTE | 2018-08-30 12:27 | NUR ---
ACCOUNTING RECONCILIATION CLERKVP LEGAL AFFAIRS SI:HYPERKALEMIA . RESPIRATORY DISTRESS VS: BP145/104, P 97, T 98.4, RR 21, SpO2 96 RBC 4.18, HgB 12.5, Hct 38.0, BUN 25 CXR Impression: Cardiomegaly. No definite acute process IS:LISINOPRIL 40mg REGLAN 10mG IVP LOPRESSOR 50mG GT ALBUTEROL 3ml HHN PROTONIX 40mg PIPERACILLIN SOD/ TAZOBACTAM SOD 110ml SDU STATUS
--- NOTE | 2018-08-30 13:36 | Pulmonology Progress Note ---
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 distended with feeds feeds held and GT to suction no pneumonia on CXR cont rx per GI Subjective ROS Limited/Unobtainable: Yes Allergies: Coded Allergies: NO KNOWN ALLERGIES (Unverified Allergy, Unknown, 03/02/15) Objective Last 24 Hour Vital Signs Date Time Temp Pulse Resp B/P (MAP) Pulse Ox O2 Delivery O2 Flow Rate FiO2 08/30/18 12:00 91 08/30/18 12:00 97.7 95 19 151/107 (122) 97 08/30/18 12:00 Room Air 08/30/18 10:44 82 20 99 Room Air 21 08/30/18 10:33 86 20 96 Room Air 21 08/30/18 08:42 145/104 08/30/18 08:41 97 145/104 08/30/18 08:00 88 08/30/18 08:00 Room Air 08/30/18 08:00 98.4 97 21 145/104 (118) 99 08/30/18 07:56 84 20 98 Room Air 21 08/30/18 07:54 Room Air 21 08/30/18 07:54 96 Room Air 21 08/30/18 07:50 81 20 95 Room Air 21 08/30/18 04:31 Room Air 08/30/18 04:30 Room Air 08/30/18 04:00 97.5 86 24 135/96 (109) 96 08/30/18 04:00 63 08/30/18 04:00 Room Air 08/30/18 00:50 Nasal Cannula 2.0 28 08/30/18 00:50 Nasal Cannula 2.0 28 08/30/18 00:00 87 08/30/18 00:00 Room Air 08/30/18 00:00 97.5 86 24 140/96 (111) 100 08/29/18 20:24 98 127/94 08/29/18 20:00 87 08/29/18 20:00 Room Air 08/29/18 20:00 97.5 98 24 127/94 (105) 98 08/29/18 19:28 90 20 99 Nasal Cannula 2.0 28 08/29/18 19:15 Nasal Cannula 4.0 36 08/29/18 19:15 84 20 99 Nasal Cannula 2.0 28 08/29/18 19:14 99 Nasal Cannula 4.0 36 08/29/18 16:00 Nasal Cannula 4.0 08/29/18 16:00 97.9 92 20 138/98 (111) 95 08/29/18 15:20 Room Air 08/29/18 15:20 Room Air 08/29/18 15:10 93 Intake and Output 08/29/18 08/30/18 19:00 07:00 Intake Total 415 ml 0 ml Output Total 1700 ml 900 ml Balance -1285 ml -900 ml Intake IV Total 335 ml Tube Feeding 30 ml 0 ml Other 50 ml Output Urine Total 1700 ml 900 ml General Appearance: no acute distress HEENT: atraumatic Respiratory/Chest: lungs clear Cardiovascular: normal rate Abdomen: soft, non tender, distended Microbiology Date/Time Source Procedure Growth Status 08/27/18 19:45 Blood Blood Culture - Preliminary NO GROWTH AFTER 48 HOURS Resulted 08/27/18 19:30 Blood Blood Culture - Preliminary NO GROWTH AFTER 48 HOURS Resulted 08/28/18 08:46 Sputum Gram Stain - Final Complete 08/28/18 08:46 Sputum Culture - Final Escherichia Coli - Esbl Complete 08/27/18 19:45 Urine,Clean Catch Urine Culture - Final Debi Albicans Complete Laboratory Tests 08/30/18 04:00: White Blood Count 6.3, Red Blood Count 4.18L, Hemoglobin 12.5L, Hematocrit 38.0L , Mean Corpuscular Volume 91, Mean Corpuscular Hemoglobin 29.8, Mean Corpuscular Hemoglobin Concent 32.9, Red Cell Distribution Width 14.2, Platelet Count 298, Mean Platelet Volume 5.8L, Neutrophils (%) (Auto) 76.9H, Lymphocytes (%) (Auto) 11.7L, Monocytes (%) (Auto) 9.2, Eosinophils (%) (Auto) 1.0, Basophils (%) (Auto) 1.2, Sodium Level 142, Potassium Level 3.8, Chloride Level 110H, Carbon Dioxide Level 24, Anion Gap 8, Blood Urea Nitrogen 25H, Creatinine 0.7, Estimat Glomerular Filtration Rate > 60, Glucose Level 100, Calcium Level 9.7 Current Medications Medications (Trade) Dose Ordered Sig/Keihnde Route PRN Reason Start Time Stop Time Status Last Admin Dose Admin Acetaminophen (Tylenol) 650 mg Q4H PRN GT Mild Pain/Temp > 100.5 08/28/18 04:00 09/27/18 03:59 Albuterol/ Ipratropium (Albuterol/ Ipratropium) 3 ml Q4HRT HHN 08/28/18 15:00 09/02/18 14:59 08/30/18 10:32 Chlorhexidine Gluconate (Ivett-Hex 2%) 1 applic DAILY@2000 TOPIC 08/30/18 20:00 09/28/18 19:59 Clonidine HCl (Catapres Tab) 0.1 mg Q3HR PRN GT SBP >150 08/28/18 04:30 09/27/18 04:14 Docusate Sodium (Colace) 100 mg TWICE A DAY ORAL 08/30/18 18:00 09/29/18 17:59 Lisinopril (Prinivil) 40 mg DAILY ORAL 08/30/18 09:00 09/29/18 08:59 08/30/18 08:42 Metoclopramide HCl (Reglan) 10 mg EVERY 6 HOURS IVP 08/30/18 18:00 09/28/18 13:59 Metoprolol Tartrate (Lopressor) 50 mg Q12HR GT 08/29/18 09:00 09/28/18 08:59 08/30/18 08:41 Ondansetron HCl (Zofran) 4 mg Q4HR PRN IVP nausea/vomiting 08/28/18 04:30 09/27/18 04:14 Pantoprazole (Protonix) 40 mg DAILY IVP 08/28/18 09:00 09/27/18 08:59 08/30/18 08:39 Piperacillin Sod/ Tazobactam Sod 3.375 gm/Sodium Chloride 110 ml @ 27.5 mls/hr Q8H IVPB 08/28/18 08:00 09/04/18 07:59 08/30/18 08:39 Polyethylene Glycol (Miralax) 17 gm BEDTIME ORAL 08/30/18 21:00 09/29/18 20:59 Tamsulosin HCl (Flomax) 0.4 mg BEDTIME ORAL 08/28/18 21:00 09/27/18 20:59 08/29/18 20:24 Vancomycin HCl (Vanco rx to dose) 1 ea DAILY PRN MISC Per rx protocol 08/28/18 04:15 09/27/18 03:59 Vancomycin HCl 1.25 gm/Dextrose 275 ml @ 183.333 mls/hr Q24H IVPB 08/28/18 21:00 09/02/18 20:59 08/29/18 20:23 Jose J Oquendo MD Aug 30, 2018 13:36
[2018-08-30 16:00] VITALS: BP 144/94
[2018-08-30] MEDS ORDERED: Docusate 100mg cap ORAL SCH (18:00)
--- NOTE | 2018-08-30 19:07 | NUR ---
NURSE NOTES: BEDSIDE REPORT RECEIVED FROM NAV COONE[facility]. PT IS X3-4, NONVERBAL, ABLE TO SHAKE HEAD YES/NO. RA, SATING WELL. CGT RUNNING GLUCERNA 1.5 AT 20, GOAL 45. RT ORDERED FOR BOWEL DECOMPRESSION. JOHNS NOTED, DRAINING. SKIN IS CLEAN AND DRY, DRESSINGS INTACT. BILLY PICC NOTED; ASYMPTOMATIC. BED IS LOCKED IN LOWEST POSITION, SR X3, CALL NIXON W/ IN REACH, BED ALARM ON, SZ PRECAUTIONS CTND. WILL CONTINUE TO MONITOR AND FOLLOW PLAN OF CARE.
[2018-08-30 20:00] VITALS: BP 150/100
--- NOTE | 2018-08-30 20:07 | Nephrology Progress Note ---
Assessment/Plan Assessment 1) RANCHO most likely due to cardio-renal syndrome, improved with diuresis 2) Hypokalemia 3) CHF has improved Plan: Will continue current measures Subjective Subjective He had still very good diuresis, I/O -2.1 l, creat is down to 0.7, looks more comfortable, tolerates TF Objective Objective Last 24 Hour Vital Signs Date Time Temp Pulse Resp B/P (MAP) Pulse Ox O2 Delivery O2 Flow Rate FiO2 08/30/18 16:00 105 08/30/18 16:00 Room Air 08/30/18 16:00 97.8 108 19 144/94 (111) 96 08/30/18 15:17 91 20 99 Room Air 21 08/30/18 14:56 93 20 96 Room Air 21 08/30/18 12:00 91 08/30/18 12:00 97.7 95 19 151/107 (122) 97 08/30/18 12:00 Room Air 08/30/18 10:44 82 20 99 Room Air 21 08/30/18 10:33 86 20 96 Room Air 21 08/30/18 08:42 145/104 08/30/18 08:41 97 145/104 08/30/18 08:00 88 08/30/18 08:00 Room Air 08/30/18 08:00 98.4 97 21 145/104 (118) 99 08/30/18 07:56 84 20 98 Room Air 21 08/30/18 07:54 Room Air 21 08/30/18 07:54 96 Room Air 21 08/30/18 07:50 81 20 95 Room Air 21 08/30/18 04:31 Room Air 08/30/18 04:30 Room Air 08/30/18 04:00 97.5 86 24 135/96 (109) 96 08/30/18 04:00 63 08/30/18 04:00 Room Air 08/30/18 00:50 Nasal Cannula 2.0 28 08/30/18 00:50 Nasal Cannula 2.0 28 08/30/18 00:00 87 08/30/18 00:00 Room Air 08/30/18 00:00 97.5 86 24 140/96 (111) 100 08/29/18 20:24 98 127/94 Intake and Output 08/29/18 08/30/18 18:59 06:59 Intake Total 415 ml 0 ml Output Total 1700 ml 900 ml Balance -1285 ml -900 ml IV Total 335 ml Tube Feeding 30 ml 0 ml Other 50 ml Output Urine Total 1700 ml 900 ml Laboratory Tests 08/30/18 04:00: White Blood Count 6.3, Red Blood Count 4.18L, Hemoglobin 12.5L, Hematocrit 38.0L , Mean Corpuscular Volume 91, Mean Corpuscular Hemoglobin 29.8, Mean Corpuscular Hemoglobin Concent 32.9, Red Cell Distribution Width 14.2, Platelet Count 298, Mean Platelet Volume 5.8L, Neutrophils (%) (Auto) 76.9H, Lymphocytes (%) (Auto) 11.7L, Monocytes (%) (Auto) 9.2, Eosinophils (%) (Auto) 1.0, Basophils (%) (Auto) 1.2, Sodium Level 142, Potassium Level 3.8, Chloride Level 110H, Carbon Dioxide Level 24, Anion Gap 8, Blood Urea Nitrogen 25H, Creatinine 0.7, Estimat Glomerular Filtration Rate > 60, Glucose Level 100, Calcium Level 9.7 Height (Feet): 5 Height (Inches): 6.00 Weight (Pounds): 139 General Appearance: WD/WN, no apparent distress EENT: PERRL/EOMI, TMs normal Cardiovascular: normal rate, regular rhythm, no JVD Respiratory/Chest: lungs clear, decreased breath sounds Abdomen: normal bowel sounds, non tender 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
[2018-08-30] MEDS: Miralax 17gm pkt ORAL SCH (20:36)
[2018-08-30] MEDS: Tamsulosin 0.4mg cap ORAL SCH (20:36)
[2018-08-30] MEDS: Dyna-Hex 2% Top Sol 2oz TOPIC SCH (20:36)
[2018-08-30] MEDS: Vancomycin 1.25mg/D5W 275ml IVPB SCH ×2 (20:38)
--- NOTE | 2018-08-30 21:21 | NUR ---
NURSE NOTES: NON ADMIN OF AMLODIPINE, METOPROLOL. PT WAS ALREADY GIVEN METOPROLOL 50 MG. SEE EMAR FOR TIME. WILL MONITOR PT BP.
--- NOTE | 2018-08-30 22:45 | Progress Note ---
DATE: 08/30/2018 NOTE: INCOMPLETE DICTATION CARDIOLOGY PROGRESS NOTE SUBJECTIVE: The patient has diuresed well, less congestion noted. Monitored rhythm, sinus with ectopic atrial beats. OBJECTIVE: VITAL SIGNS: Blood pressure 151/107, pulse rate 95, respirations 19, and afebrile. LUNGS: Diminished breath sounds. CARDIAC: Regular rhythm and rate. Normal S1, S2. ABDOMEN: Slightly distended, but soft. G-tube site intact. EXTREMITIES: With dependent edema. There is left hemiparesis. LABORATORY DATA: White count 6.3, hemoglobin 12.5, potassium 3.8, BUN 25, and creatinine 0.7. Fuentes Gutierres M.D. DR: SOLEDAD JOB#: [id number] CC:
[2018-08-31] VITALS: BP 141/100
--- NOTE | 2018-08-31 00:15 | Progress Note ---
DATE: 08/30/2018 CARDIOLOGY PROGRESS NOTE SUBJECTIVE: The patient has labile blood pressure. Diuresis has been adequate. The patient is saturating at 96% to 99% on room air. OBJECTIVE: VITAL SIGNS: Blood pressure 144/94, pulse 108, and respirations 19. LUNGS: Bilateral breath sounds. Scattered rales. CARDIAC: Regular rhythm and rate. Normal S1, S2 with a fourth heart sound. ABDOMEN: Soft, distended. G-tube intact. EXTREMITIES: Left hemiparesis. Trace dependent edema. LABORATORY DATA: White count 6.3, hemoglobin 12.5. Potassium 3.8, BUN 25, creatinine 0.7. Cultures are noted. IMPRESSION: 1. ESBL E. coli pneumonia. 2. Fungal cystitis. 3. CVA. 4. Acute on chronic kidney injury, resolving. 5. Acute on chronic diastolic congestive heart failure. 6. Hypertensive cardiomyopathy with labile blood pressure. PLAN: 1. Cautious diuresis. 2. Titrate antihypertensive regimen. 3. Antimicrobials. 4. Respiratory hygiene. 5. Promotility agents. Fuentes Gutierres M.D. DR: PRISCILLA JOB#: [id number] CC:
[2018-08-31] MEDS: Metoclopramide 10mg/2ml Inj IVP SCH ×4 (00:58→17:25)
[2018-08-31] MEDS: Zosyn 3.375gm q8h **Extended infusion IVPB SCH ×6 (00:58→16:13)
[2018-08-31] MEDS: Albuterol/Ipratropium 3ml neb HHN SCH ×6 (03:34→23:11)
[2018-08-31 04:00] VITALS: BP 150/100
--- NOTE | 2018-08-31 07:15 | NUR ---
Received pt from [facility] in stable condition. No cardiopulmonary distress noted. Pt is awake lying calmly in bed. Pt is on RA. GT noted running Glucerna 1.5 at 40cc/hr. Rectal tube noted draining stool. F/C noted draining yellow urine. Pt has BILLY PICC. Seizure pads on side rails and SCDs on. Bed is in lowest position and call light within reach. Side rails up x 3. Will continue to monitor pt.
--- NOTE | 2018-08-31 07:50 | General Progress Note ---
Assessment/Plan Problem List: (1) Colon distention ICD Codes: K63.89 - Other specified diseases of intestine SNOMED: 118707184 (2) Ileus ICD Codes: K56.7 - Ileus, unspecified SNOMED: 038935346 (3) HTN (hypertension) ICD Codes: I10 - Essential (primary) hypertension SNOMED: 35692579 Assessment/Plan abdominal distention greatly improved CT AP reviewed, SB and sigmoid distention more likely functional in nature rectal tube for colonic decompression reglan ATC GTF at 40 cc goal of 50>>> no leakage around the GT Antibiotics per infectious disease zinc oxide daily around GT site daily GT site care 3 times daily and as needed PPI frequent turning in bed Follow lab bowel regimen Subjective ROS Limited/Unobtainable: No Allergies: Coded Allergies: NO KNOWN ALLERGIES (Unverified Allergy, Unknown, 03/02/15) Objective Last 24 Hour Vital Signs Date Time Temp Pulse Resp B/P (MAP) Pulse Ox O2 Delivery O2 Flow Rate FiO2 08/31/18 07:14 98 20 100 Room Air 08/31/18 07:07 92 18 98 Room Air 08/31/18 07:07 Room Air 08/31/18 07:07 98 Room Air 08/31/18 04:00 94 08/31/18 04:00 Room Air 08/31/18 04:00 98.3 97 24 150/100 (117) 97 08/31/18 03:45 102 20 100 Room Air 08/31/18 03:35 100 18 100 Room Air 08/31/18 00:00 92 08/31/18 00:00 Room Air 08/31/18 00:00 97.4 93 22 141/100 (114) 97 08/30/18 23:51 89 20 99 Room Air 08/30/18 23:41 90 18 97 Room Air 08/30/18 21:00 89 150/100 08/30/18 21:00 89 150/100 08/30/18 20:36 89 150/100 08/30/18 20:33 90 20 98 Room Air 21 08/30/18 20:23 Room Air 21 08/30/18 20:23 95 18 97 Room Air 21 08/30/18 20:23 97 Room Air 08/30/18 20:23 95 18 Room Air 08/30/18 20:00 97.5 97 24 150/100 (117) 95 08/30/18 20:00 Room Air 08/30/18 20:00 97 08/30/18 16:00 105 08/30/18 16:00 Room Air 08/30/18 16:00 97.8 108 19 144/94 (111) 96 08/30/18 15:17 91 20 99 Room Air 21 08/30/18 14:56 93 20 96 Room Air 21 08/30/18 12:00 91 08/30/18 12:00 97.7 95 19 151/107 (122) 97 08/30/18 12:00 Room Air 08/30/18 10:44 82 20 99 Room Air 21 08/30/18 10:33 86 20 96 Room Air 21 08/30/18 08:42 145/104 08/30/18 08:41 97 145/104 08/30/18 08:00 88 08/30/18 08:00 Room Air 08/30/18 08:00 98.4 97 21 145/104 (118) 99 08/30/18 07:56 84 20 98 Room Air 21 08/30/18 07:54 Room Air 21 08/30/18 07:54 96 Room Air 21 08/30/18 07:50 81 20 95 Room Air 21 Intake and Output 08/30/18 08/31/18 19:00 07:00 Intake Total 465.00 ml 733.333 ml Output Total 650 ml 600 ml Balance -185.00 ml 133.333 ml Intake Free Water 200 ml 90 ml IV Total 165.00 ml 293.333 ml Tube Feeding 100 ml 350 ml Output Urine Total 650 ml 600 ml Height (Feet): 5 Height (Inches): 6.00 Weight (Pounds): 139 General Appearance: no apparent distress EENT: normal ENT inspection Neck: supple Cardiovascular: normal rate Respiratory/Chest: decreased breath sounds Abdomen: soft, hypoactive bowel sounds, distended Extremities: non-tender Homar Parra MD Aug 31, 2018 07:50
[2018-08-31 08:00] VITALS: BP 145/108
[2018-08-31] MEDS ORDERED: Mineral Oil 30ml ud GT SCH (08:30)
[2018-08-31] MEDS: Docusate 100mg/10ml Liq GT SCH ×2 (08:40→17:28)
[2018-08-31] MEDS: Lisinopril 20mg tab GT SCH (08:43)
[2018-08-31 10:32] LABS: BASOPHILS % (AUTO) 1.7 % (0.0-2.0); EOSINOPHILS % (AUTO) 1.3 % (0.0-3.0); HEMATOCRIT 44.6 % (42.0-52.0); HEMOGLOBIN 14.3 G/DL (14.2-18.0); LYMPHOCYTES % (AUTO) 8.2 % (20.0-45.0); MEAN CORPUSCULAR VOLUME 90 FL (80-99); MONOCYTES % (AUTO) 8.9 % (1.0-10.0); NEUTROPHILS % (AUTO) 79.8 % (45.0-75.0); PLATELET COUNT 319 K/UL (150-450); RED BLOOD COUNT 4.94 M/UL (4.70-6.10); RED CELL DISTRIBUTION WIDTH 14.2 % (11.6-14.8); WHITE BLOOD COUNT 7.4 K/UL (4.8-10.8)
[2018-08-31 10:43] LABS: ANION GAP 9 mmol/L (5-15); BLOOD UREA NITROGEN 21 mg/dL (7-18); CALCIUM 9.6 MG/DL (8.5-10.1); CARBON DIOXIDE 23 MMOL/L (21-32); CHLORIDE 109 MMOL/L (98-107); CREATININE 0.9 MG/DL (0.55-1.30); PHOSPHORUS 1.5 MG/DL (2.5-4.9); POTASSIUM 3.6 MMOL/L (3.5-5.1); SODIUM 141 MMOL/L (136-145)
[2018-08-31 12:00] VITALS: BP 157/109
[2018-08-31 16:00] VITALS: BP 131/111
--- NOTE | 2018-08-31 17:51 | Pulmonology Progress Note ---
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 abdomen better TF per GI and GT site care abx o2 fu labs no pneumonia on CXR cont rx per GI Subjective Constitutional: Reports: no symptoms HEENT: Repors: no symptoms Respiratory: Reports: no symptoms Cardiovascular: Reports: no symptoms Gastrointestinal/Abdominal: Reports: no symptoms Allergies: Coded Allergies: NO KNOWN ALLERGIES (Unverified Allergy, Unknown, 03/02/15) Subjective awake toelraign tf no bleeding not getting oob no cp nv or bleeding noted' Objective Last 24 Hour Vital Signs Date Time Temp Pulse Resp B/P (MAP) Pulse Ox O2 Delivery O2 Flow Rate FiO2 08/31/18 16:00 Room Air 08/31/18 16:00 98.3 92 22 131/111 (118) 98 08/31/18 16:00 90 08/31/18 15:37 98 20 100 Room Air 08/31/18 15:30 97 18 98 Room Air 08/31/18 12:48 157/109 08/31/18 12:19 97 20 100 Room Air 08/31/18 12:09 94 18 98 Room Air 21 08/31/18 12:00 97.9 87 20 157/109 (125) 96 08/31/18 12:00 Room Air 08/31/18 12:00 86 08/31/18 08:43 145/108 08/31/18 08:42 111 145/108 08/31/18 08:41 111 145/108 08/31/18 08:00 97.8 111 19 145/108 (120) 97 08/31/18 08:00 Room Air 08/31/18 08:00 109 08/31/18 07:14 98 20 100 Room Air 08/31/18 07:07 92 18 98 Room Air 21 08/31/18 07:07 Room Air 21 08/31/18 07:07 98 Room Air 08/31/18 04:00 94 08/31/18 04:00 Room Air 08/31/18 04:00 98.3 97 24 150/100 (117) 97 08/31/18 03:45 102 20 100 Room Air 08/31/18 03:35 100 18 100 Room Air 21 08/31/18 00:00 92 08/31/18 00:00 Room Air 08/31/18 00:00 97.4 93 22 141/100 (114) 97 08/30/18 23:51 89 20 99 Room Air 21 08/30/18 23:41 90 18 97 Room Air 21 08/30/18 21:00 89 150/100 08/30/18 21:00 89 150/100 08/30/18 20:36 89 150/100 08/30/18 20:33 90 20 98 Room Air 21 08/30/18 20:23 Room Air 21 08/30/18 20:23 95 18 97 Room Air 21 08/30/18 20:23 97 Room Air 21 08/30/18 20:23 95 18 Room Air 21 08/30/18 20:00 97.5 97 24 150/100 (117) 95 08/30/18 20:00 Room Air 08/30/18 20:00 97 Intake and Output 08/30/18 08/31/18 19:00 07:00 Intake Total 465.00 ml 773.333 ml Output Total 650 ml 600 ml Balance -185.00 ml 173.333 ml Intake Free Water 200 ml 90 ml IV Total 165.00 ml 293.333 ml Tube Feeding 100 ml 390 ml Output Urine Total 650 ml 600 ml General Appearance: WD/WN Respiratory/Chest: rhonchi Cardiovascular: normal rate, regular rhythm, edema Abdomen: soft, non tender, non distended Extremities: no cyanosis, no clubbing Neurologic/Psychiatric: responsive Laboratory Tests 08/31/18 09:50: White Blood Count 7.4, Red Blood Count 4.94, Hemoglobin 14.3, Hematocrit 44.6, Mean Corpuscular Volume 90, Mean Corpuscular Hemoglobin 28.9, Mean Corpuscular Hemoglobin Concent 32.0, Red Cell Distribution Width 14.2, Platelet Count 319, Mean Platelet Volume 6.2L, Neutrophils (%) (Auto) 79.8H, Lymphocytes (%) (Auto) 8.2L, Monocytes (%) (Auto) 8.9, Eosinophils (%) (Auto) 1.3, Basophils (%) (Auto ) 1.7, Sodium Level 141, Potassium Level 3.6, Chloride Level 109H, Carbon Dioxide Level 23, Anion Gap 9, Blood Urea Nitrogen 21H, Creatinine 0.9, Estimat Glomerular Filtration Rate > 60, Glucose Level 125H, Calcium Level 9.6, Phosphorus Level 1.5L, Magnesium Level 1.9 Current Medications Medications (Trade) Dose Ordered Sig/Ekhinde Route PRN Reason Start Time Stop Time Status Last Admin Dose Admin Acetaminophen (Tylenol) 650 mg Q4H PRN GT Mild Pain/Temp > 100.5 08/28/18 04:00 09/27/18 03:59 Albuterol/ Ipratropium (Albuterol/ Ipratropium) 3 ml Q4HRT HHN 08/28/18 15:00 09/02/18 14:59 08/31/18 15:29 Amlodipine Besylate (Norvasc) 5 mg Q12HR GT 08/30/18 21:00 09/29/18 20:59 08/31/18 08:42 Chlorhexidine Gluconate (Ivett-Hex 2%) 1 applic DAILY@2000 TOPIC 08/30/18 20:00 09/28/18 19:59 08/30/18 20:36 Clonidine HCl (Catapres Tab) 0.1 mg Q3HR PRN GT SBP >150 08/28/18 04:30 09/27/18 04:14 08/31/18 12:48 Docusate Sodium (Colace) 100 mg TWICE A DAY GT 08/31/18 09:00 09/30/18 08:59 08/31/18 17:28 Lansoprazole (Prevacid) 30 mg DAILY GT 08/31/18 09:00 09/30/18 08:59 08/31/18 08:41 Lisinopril (Prinivil) 40 mg DAILY GT 08/31/18 09:00 09/30/18 08:59 08/31/18 08:43 Metoclopramide HCl (Reglan) 10 mg EVERY 6 HOURS IVP 08/30/18 18:00 09/28/18 13:59 08/31/18 17:25 Metoprolol Tartrate (Lopressor) 100 mg Q12HR GT 08/30/18 21:00 09/29/18 20:59 08/31/18 08:41 Ondansetron HCl (Zofran) 4 mg Q4HR PRN IVP nausea/vomiting 08/28/18 04:30 09/27/18 04:14 Piperacillin Sod/ Tazobactam Sod 3.375 gm/Sodium Chloride 110 ml @ 27.5 mls/hr Q8H IVPB 08/28/18 08:00 09/04/18 07:59 08/31/18 16:13 Polyethylene Glycol (Miralax) 17 gm BEDTIME ORAL 08/30/18 21:00 09/29/18 20:59 08/30/18 20:36 Tamsulosin HCl (Flomax) 0.4 mg BEDTIME ORAL 08/28/18 21:00 09/27/18 20:59 08/30/18 20:36 Vancomycin HCl (Vanco rx to dose) 1 ea DAILY PRN MISC Per rx protocol 08/28/18 04:15 09/27/18 03:59 Vancomycin HCl 1.25 gm/Dextrose 275 ml @ 183.333 mls/hr Q24H IVPB 08/28/18 21:00 09/02/18 20:59 08/30/18 20:38 Indigo Alarcon 16, 2019 17:51
--- NOTE | 2018-08-31 18:06 | Nephrology Progress Note ---
Assessment/Plan Problem List: (1) RANCHO (acute kidney injury) (2) Debi infection (3) Pneumonia (4) Late effects of CVA (cerebrovascular accident) (5) Abdominal distension Plan renal function improving, cont rx sepsis, avoid fluid overload, atonic bowel cont miralax Subjective ROS Limited/Unobtainable: Yes Objective Objective Last 24 Hour Vital Signs Date Time Temp Pulse Resp B/P (MAP) Pulse Ox O2 Delivery O2 Flow Rate FiO2 08/31/18 16:00 Room Air 08/31/18 16:00 98.3 92 22 131/111 (118) 98 08/31/18 16:00 90 08/31/18 15:37 98 20 100 Room Air 08/31/18 15:30 97 18 98 Room Air 08/31/18 12:48 157/109 08/31/18 12:19 97 20 100 Room Air 08/31/18 12:09 94 18 98 Room Air 08/31/18 12:00 97.9 87 20 157/109 (125) 96 08/31/18 12:00 Room Air 08/31/18 12:00 86 08/31/18 08:43 145/108 08/31/18 08:42 111 145/108 08/31/18 08:41 111 145/108 08/31/18 08:00 97.8 111 19 145/108 (120) 97 08/31/18 08:00 Room Air 08/31/18 08:00 109 08/31/18 07:14 98 20 100 Room Air 08/31/18 07:07 92 18 98 Room Air 08/31/18 07:07 Room Air 08/31/18 07:07 98 Room Air 08/31/18 04:00 94 08/31/18 04:00 Room Air 08/31/18 04:00 98.3 97 24 150/100 (117) 97 08/31/18 03:45 102 20 100 Room Air 08/31/18 03:35 100 18 100 Room Air 08/31/18 00:00 92 08/31/18 00:00 Room Air 08/31/18 00:00 97.4 93 22 141/100 (114) 97 08/30/18 23:51 89 20 99 Room Air 08/30/18 23:41 90 18 97 Room Air 21 08/30/18 21:00 89 150/100 08/30/18 21:00 89 150/100 08/30/18 20:36 89 150/100 08/30/18 20:33 90 20 98 Room Air 21 08/30/18 20:23 Room Air 21 08/30/18 20:23 95 18 97 Room Air 21 08/30/18 20:23 97 Room Air 21 08/30/18 20:23 95 18 Room Air 21 08/30/18 20:00 97.5 97 24 150/100 (117) 95 08/30/18 20:00 Room Air 08/30/18 20:00 97 Intake and Output 08/30/18 08/31/18 19:00 07:00 Intake Total 465.00 ml 773.333 ml Output Total 650 ml 600 ml Balance -185.00 ml 173.333 ml Intake Free Water 200 ml 90 ml IV Total 165.00 ml 293.333 ml Tube Feeding 100 ml 390 ml Output Urine Total 650 ml 600 ml Laboratory Tests 08/31/18 09:50: White Blood Count 7.4, Red Blood Count 4.94, Hemoglobin 14.3, Hematocrit 44.6, Mean Corpuscular Volume 90, Mean Corpuscular Hemoglobin 28.9, Mean Corpuscular Hemoglobin Concent 32.0, Red Cell Distribution Width 14.2, Platelet Count 319, Mean Platelet Volume 6.2L, Neutrophils (%) (Auto) 79.8H, Lymphocytes (%) (Auto) 8.2L, Monocytes (%) (Auto) 8.9, Eosinophils (%) (Auto) 1.3, Basophils (%) (Auto ) 1.7, Sodium Level 141, Potassium Level 3.6, Chloride Level 109H, Carbon Dioxide Level 23, Anion Gap 9, Blood Urea Nitrogen 21H, Creatinine 0.9, Estimat Glomerular Filtration Rate > 60, Glucose Level 125H, Calcium Level 9.6, Phosphorus Level 1.5L, Magnesium Level 1.9 Height (Feet): 5 Height (Inches): 6.00 Weight (Pounds): 139 General Appearance: no apparent distress, alert, confused EENT: normal ENT inspection Neck: normal alignment Cardiovascular: normal rate, regular rhythm Respiratory/Chest: lungs clear, normal breath sounds Abdomen: distended Extremities: trace edema Neurologic: motor weakness Sid Mckeon MD Aug 31, 2018 18:06
--- NOTE | 2018-08-31 19:20 | NUR ---
HAND-OFF: Report given to [facility]. Pt in stable condition.
--- NOTE | 2018-08-31 19:22 | NUR ---
NURSE NOTES: BEDSIDE REPORT RECEIVED FROM [facility]. PT IS X3-4, NONVERBAL, ABLE TO SHAKE HEAD YES/NO. RA, SATING WELL. CGT RUNNING GLUCERNA 1.5 AT GOAL 45, NO RESIDUAL. RT ORDERED FOR BOWEL DECOMPRESSION. JOHNS NOTED, DRAINING. SKIN IS CLEAN AND DRY, DRESSINGS INTACT. BILLY PICC NOTED; RED CLOTTED, OTHERWISE ASYMPTOMATIC. BED IS LOCKED IN LOWEST POSITION, SR X3, CALL NIXON W/ IN REACH, BED ALARM ON, SZ PRECAUTIONS CTND. WILL CONTINUE TO MONITOR AND FOLLOW PLAN OF CARE.
[2018-08-31 20:00] VITALS: BP 155/88
[2018-08-31] MEDS: Dyna-Hex 2% Top Sol 2oz TOPIC SCH (20:11)
[2018-08-31] MEDS: Tamsulosin 0.4mg cap ORAL SCH (20:12)
[2018-08-31] MEDS: Miralax 17gm pkt ORAL SCH (20:13)
[2018-08-31] MEDS: Vancomycin 1.25mg/D5W 275ml IVPB SCH ×2 (20:13)
[2018-09-01] VITALS: BP 150/100
--- NOTE | 2018-09-01 | NUR ---
NURSE NOTES: LEFT MESSAGE FOR DR. BRISCOE REGARDING 10 BEATS OF VTACH, ORDER FOR ISOSORBID AND POTASSIUM ONE TIME.
[2018-09-01] MEDS: Metoclopramide 10mg/2ml Inj IVP SCH ×4 (00:04→17:39)
[2018-09-01] MEDS: Zosyn 3.375gm q8h **Extended infusion IVPB SCH ×6 (00:04→15:49)
--- NOTE | 2018-09-01 01:00 | Progress Note ---
DATE: 08/31/2018 CARDIOLOGY PROGRESS NOTE SUBJECTIVE: Condition largely unchanged. Slow improvement in renal function. Remains on antimicrobials. Had an episode of nonsustained ventricular tachycardia today. Blood pressure parameters remained quite elevated. OBJECTIVE: LUNGS: Coarse breath sounds. HEART: Regular rhythm and rate. Normal S1, S2 with a fourth heart sound. ABDOMEN: Soft. G-tube intact. EXTREMITIES: Trace edema. LABORATORY DATA: ESBL in the sputum. Debi in the urine. Potassium 3.6. Magnesium 1.9. Phosphorus 1.5. IMPRESSION: 1. E. coli pneumonia. 2. Fungal cystitis. 3. Hypokalemia. 4. Hypophosphatemia. 5. Recovering renal failure. 6. Hypertensive heart disease with labile blood pressure. 7. Acute myocardial ischemia. 8. Nonsustained ventricular tachycardia. PLAN: 1. Advance antihypertensives. 2. Continue beta-blockade. 3. Bowel regimen. 4. Antimicrobials. 5. Potassium and magnesium replacement as needed. 6. Add phosphorus replacement per Nephrology. 7. DVT prophylaxis. 8. Add anti-platelet therapy if no bleeding concern. Fuentes Gutierres M.D. DR: PRISCILLA JOB#: [id number] CC:
[2018-09-01] MEDS: Albuterol/Ipratropium 3ml neb HHN SCH ×6 (03:16→23:13)
[2018-09-01 04:00] VITALS: BP 157/107
--- NOTE | 2018-09-01 06:59 | NUR ---
HAND-OFF: Report given to [facility].
--- NOTE | 2018-09-01 07:00 | Pulmonology Progress Note ---
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 abdomen better TF per GI and GT site care abx o2 fu labs no pneumonia on CXR cont rx per GI Subjective Constitutional: Reports: no symptoms HEENT: Repors: no symptoms Respiratory: Reports: no symptoms Allergies: Coded Allergies: NO KNOWN ALLERGIES (Unverified Allergy, Unknown, 03/02/15) Subjective sleeping thsi am no distress did not use bipap over night tolerating tf no bleeding not getting oob no cp nv or bleeding noted' no pain Objective Last 24 Hour Vital Signs Date Time Temp Pulse Resp B/P (MAP) Pulse Ox O2 Delivery O2 Flow Rate FiO2 09/01/18 06:55 Room Air 21 09/01/18 06:55 97 Room Air 21 09/01/18 06:55 96 17 97 Room Air 09/01/18 06:33 157/107 09/01/18 04:00 Room Air 09/01/18 04:00 98.6 101 20 157/107 (124) 97 09/01/18 04:00 107 09/01/18 03:26 97 20 100 Room Air 09/01/18 03:16 97 19 96 Room Air 09/01/18 00:00 97.8 89 24 150/100 (117) 97 09/01/18 00:00 88 09/01/18 00:00 Room Air 08/31/18 23:26 89 20 100 Room Air 21 08/31/18 23:12 87 18 97 Room Air 21 08/31/18 20:12 89 155/88 08/31/18 20:12 89 155/88 08/31/18 20:00 99 08/31/18 20:00 98.0 98 24 155/88 (110) 96 08/31/18 20:00 Room Air 08/31/18 19:33 97 20 97 Room Air 21 08/31/18 19:01 Room Air 21 08/31/18 19:01 95 Room Air 21 08/31/18 18:59 91 18 95 Room Air 21 08/31/18 16:00 Room Air 08/31/18 16:00 98.3 92 22 131/111 (118) 98 08/31/18 16:00 90 08/31/18 15:37 98 20 100 Room Air 21 08/31/18 15:30 97 18 98 Room Air 21 08/31/18 12:48 157/109 08/31/18 12:19 97 20 100 Room Air 21 08/31/18 12:09 94 18 98 Room Air 21 08/31/18 12:00 97.9 87 20 157/109 (125) 96 08/31/18 12:00 Room Air 08/31/18 12:00 86 08/31/18 08:43 145/108 08/31/18 08:42 111 145/108 08/31/18 08:41 111 145/108 08/31/18 08:00 97.8 111 19 145/108 (120) 97 08/31/18 08:00 Room Air 08/31/18 08:00 109 08/31/18 07:14 98 20 100 Room Air 21 08/31/18 07:07 92 18 98 Room Air 21 08/31/18 07:07 Room Air 21 08/31/18 07:07 98 Room Air 21 Intake and Output 08/31/18 09/01/18 19:00 07:00 Intake Total 1005.0 ml 695.0 ml Output Total 725 ml 1050 ml Balance 280.0 ml -355.0 ml Intake Free Water 300 ml 90 ml IV Total 165.0 ml 110.0 ml Tube Feeding 540 ml 495 ml Output Urine Total 675 ml 1000 ml Stool Total 50 ml 50 ml General Appearance: WD/WN Respiratory/Chest: lungs clear, normal breath sounds Cardiovascular: normal rate, regular rhythm, edema Abdomen: soft, non tender, tender Neurologic/Psychiatric: alert Laboratory Tests 08/31/18 09:50: White Blood Count 7.4, Red Blood Count 4.94, Hemoglobin 14.3, Hematocrit 44.6, Mean Corpuscular Volume 90, Mean Corpuscular Hemoglobin 28.9, Mean Corpuscular Hemoglobin Concent 32.0, Red Cell Distribution Width 14.2, Platelet Count 319, Mean Platelet Volume 6.2L, Neutrophils (%) (Auto) 79.8H, Lymphocytes (%) (Auto) 8.2L, Monocytes (%) (Auto) 8.9, Eosinophils (%) (Auto) 1.3, Basophils (%) (Auto ) 1.7, Sodium Level 141, Potassium Level 3.6, Chloride Level 109H, Carbon Dioxide Level 23, Anion Gap 9, Blood Urea Nitrogen 21H, Creatinine 0.9, Estimat Glomerular Filtration Rate > 60, Glucose Level 125H, Calcium Level 9.6, Phosphorus Level 1.5L, Magnesium Level 1.9 08/31/18 20:35: Vancomycin Level Trough 27.8H Current Medications Medications (Trade) Dose Ordered Sig/Kehinde Route PRN Reason Start Time Stop Time Status Last Admin Dose Admin Acetaminophen (Tylenol) 650 mg Q4H PRN GT Mild Pain/Temp > 100.5 08/28/18 04:00 09/27/18 03:59 Albuterol/ Ipratropium (Albuterol/ Ipratropium) 3 ml Q4HRT HHN 08/28/18 15:00 09/02/18 14:59 09/01/18 06:54 Amlodipine Besylate (Norvasc) 5 mg Q12HR GT 08/30/18 21:00 09/29/18 20:59 08/31/18 20:12 Aspirin (ASA) 81 mg DAILY GT 09/01/18 09:00 10/01/18 08:59 Chlorhexidine Gluconate (Ivett-Hex 2%) 1 applic DAILY@2000 TOPIC 08/30/18 20:00 09/28/18 19:59 08/31/18 20:11 Clonidine HCl (Catapres Tab) 0.1 mg Q3HR PRN GT SBP >150 08/28/18 04:30 09/27/18 04:14 09/01/18 06:33 Docusate Sodium (Colace) 100 mg TWICE A DAY GT 08/31/18 09:00 09/30/18 08:59 08/31/18 17:28 Isosorbide Dinitrate (Isordil) 20 mg TID PEG 09/01/18 09:00 10/01/18 08:59 Lansoprazole (Prevacid) 30 mg DAILY GT 08/31/18 09:00 09/30/18 08:59 08/31/18 08:41 Lisinopril (Prinivil) 40 mg DAILY GT 08/31/18 09:00 09/30/18 08:59 08/31/18 08:43 Metoclopramide HCl (Reglan) 10 mg EVERY 6 HOURS IVP 08/30/18 18:00 09/28/18 13:59 09/01/18 05:18 Metoprolol Tartrate (Lopressor) 100 mg Q12HR GT 08/30/18 21:00 09/29/18 20:59 08/31/18 20:12 Ondansetron HCl (Zofran) 4 mg Q4HR PRN IVP nausea/vomiting 08/28/18 04:30 09/27/18 04:14 Phosphorus (Phospha 250 Neutral) 250 mg THREE TIMES A DAY ORAL 09/01/18 09:00 09/04/18 08:00 Piperacillin Sod/ Tazobactam Sod 3.375 gm/Sodium Chloride 110 ml @ 27.5 mls/hr Q8H IVPB 08/28/18 08:00 09/04/18 07:59 09/01/18 00:04 Polyethylene Glycol (Miralax) 17 gm BID ORAL 09/01/18 09:00 10/01/18 08:59 Potassium Chloride (K-Dur) 20 meq ONCE GT 09/01/18 06:30 10/01/18 06:29 09/01/18 06:35 Tamsulosin HCl (Flomax) 0.4 mg BEDTIME ORAL 08/28/18 21:00 09/27/18 20:59 08/31/18 20:12 Vancomycin HCl (Vanco rx to dose) 1 ea DAILY PRN MISC Per rx protocol 08/28/18 04:15 09/27/18 03:59 Indigo Alarcon DO Sep 01, 2018 07:00
--- NOTE | 2018-09-01 07:05 | NUR ---
NURSE NOTES: Received pt from [facility] in stable condition. No cardiopulmonary distress noted. Pt is asleep in bed. Pt is on RA. GT noted running Glucerna 1.5 at 45cc/hr. No residuals noted at this time. Rectal tube noted draining stool. F/C noted draining yellow urine. Pt has BILLY PICC. Seizure pads on side rails and SCDs on. Bed is in lowest position and call light within reach. Side rails up x 3. Will continue to monitor pt.
[2018-09-01 07:46] VITALS: BP 131/91
[2018-09-01] MEDS: Docusate 100mg/10ml Liq GT SCH ×2 (08:14→17:39)
[2018-09-01] MEDS: Phospha 250 Neutral tab GT SCH ×3 (08:15→17:39)
[2018-09-01] MEDS: Lisinopril 20mg tab GT SCH (08:16)
[2018-09-01] MEDS: Aspirin Baby 81mg GT SCH (08:17)
[2018-09-01] MEDS: Miralax 17gm pkt GT SCH ×2 (08:22→17:39)
[2018-09-01] MEDS ORDERED: Phospha 250 Neutral tab ORAL SCH (09:00)
[2018-09-01] MEDS ORDERED: Miralax 17gm pkt ORAL SCH (09:00)
--- NOTE | 2018-09-01 10:37 | General Progress Note ---
Assessment/Plan Problem List: (1) Colon distention ICD Codes: K63.89 - Other specified diseases of intestine SNOMED: 732312015 (2) Ileus ICD Codes: K56.7 - Ileus, unspecified SNOMED: 915540408 (3) HTN (hypertension) ICD Codes: I10 - Essential (primary) hypertension SNOMED: 98637953 Assessment/Plan abdominal distention CT AP reviewed, SB and sigmoid distention more likely functional in nature rectal tube for colonic decompression reglan ATC GTF at 40 cc goal of 50>>> m leakage around the GT Antibiotics per infectious disease zinc oxide daily around GT site daily GT site care 3 times daily and as needed PPI frequent turning in bed Follow lab bowel regimen 2 lit of golytely for today repeat labs Subjective ROS Limited/Unobtainable: No Allergies: Coded Allergies: NO KNOWN ALLERGIES (Unverified Allergy, Unknown, 03/02/15) Objective Last 24 Hour Vital Signs Date Time Temp Pulse Resp B/P (MAP) Pulse Ox O2 Delivery O2 Flow Rate FiO2 09/01/18 08:16 131/91 09/01/18 08:16 106 131/91 09/01/18 08:15 106 131/91 09/01/18 08:14 131/91 09/01/18 08:00 101 09/01/18 08:00 Room Air 09/01/18 07:46 98.1 106 20 131/91 (104) 98 09/01/18 07:05 96 18 98 Room Air 09/01/18 06:55 Room Air 09/01/18 06:55 97 Room Air 09/01/18 06:55 96 17 97 Room Air 09/01/18 06:33 157/107 09/01/18 04:00 Room Air 09/01/18 04:00 98.6 101 20 157/107 (124) 97 09/01/18 04:00 107 09/01/18 03:26 97 20 100 Room Air 21 09/01/18 03:16 97 19 96 Room Air 21 09/01/18 00:00 97.8 89 24 150/100 (117) 97 09/01/18 00:00 88 09/01/18 00:00 Room Air 08/31/18 23:26 89 20 100 Room Air 21 08/31/18 23:12 87 18 97 Room Air 21 08/31/18 20:12 89 155/88 08/31/18 20:12 89 155/88 08/31/18 20:00 99 08/31/18 20:00 98.0 98 24 155/88 (110) 96 08/31/18 20:00 Room Air 08/31/18 19:33 97 20 97 Room Air 21 08/31/18 19:01 Room Air 21 08/31/18 19:01 95 Room Air 21 08/31/18 18:59 91 18 95 Room Air 21 08/31/18 16:00 Room Air 08/31/18 16:00 98.3 92 22 131/111 (118) 98 08/31/18 16:00 90 08/31/18 15:37 98 20 100 Room Air 08/31/18 15:30 97 18 98 Room Air 08/31/18 12:48 157/109 08/31/18 12:19 97 20 100 Room Air 08/31/18 12:09 94 18 98 Room Air 08/31/18 12:00 97.9 87 20 157/109 (125) 96 08/31/18 12:00 Room Air 08/31/18 12:00 86 Intake and Output 08/31/18 09/01/18 19:00 07:00 Intake Total 1005.0 ml 770.0 ml Output Total 725 ml 1050 ml Balance 280.0 ml -280.0 ml Intake Free Water 300 ml 120 ml IV Total 165.0 ml 110.0 ml Tube Feeding 540 ml 540 ml Output Urine Total 675 ml 1000 ml Stool Total 50 ml 50 ml Laboratory Tests 08/31/18 20:35: Vancomycin Level Trough 27.8H 09/01/18 09:45: Sodium Level [Pending], Potassium Level [Pending], Chloride Level [Pending], Carbon Dioxide Level [Pending], Blood Urea Nitrogen [Pending], Creatinine [ Pending], Estimat Glomerular Filtration Rate [Pending], Glucose Level [Pending] , Calcium Level [Pending], Troponin I [Pending], Pro-B-Type Natriuretic Peptide [Pending] Height (Feet): 5 Height (Inches): 6.00 Weight (Pounds): 139 General Appearance: no apparent distress EENT: normal ENT inspection Neck: supple Cardiovascular: normal rate Respiratory/Chest: decreased breath sounds Abdomen: soft, hypoactive bowel sounds, distended Extremities: non-tender Homar Parra MD Sep 01, 2018 10:37
--- NOTE | 2018-09-01 10:38 | Nephrology Progress Note ---
Assessment/Plan Problem List: (1) RANCHO (acute kidney injury) (2) Debi infection (3) Pneumonia (4) Late effects of CVA (cerebrovascular accident) (5) Abdominal distension Plan renal function improving, cont rx sepsis, avoid fluid overload, atonic bowel cont miralax, abd less distended Subjective ROS Limited/Unobtainable: Yes Objective Objective Last 24 Hour Vital Signs Date Time Temp Pulse Resp B/P (MAP) Pulse Ox O2 Delivery O2 Flow Rate FiO2 09/01/18 08:16 131/91 09/01/18 08:16 106 131/91 09/01/18 08:15 106 131/91 09/01/18 08:14 131/91 09/01/18 08:00 101 09/01/18 08:00 Room Air 09/01/18 07:46 98.1 106 20 131/91 (104) 98 09/01/18 07:05 96 18 98 Room Air 09/01/18 06:55 Room Air 09/01/18 06:55 97 Room Air 09/01/18 06:55 96 17 97 Room Air 09/01/18 06:33 157/107 09/01/18 04:00 Room Air 09/01/18 04:00 98.6 101 20 157/107 (124) 97 09/01/18 04:00 107 09/01/18 03:26 97 20 100 Room Air 09/01/18 03:16 97 19 96 Room Air 09/01/18 00:00 97.8 89 24 150/100 (117) 97 09/01/18 00:00 88 09/01/18 00:00 Room Air 08/31/18 23:26 89 20 100 Room Air 21 08/31/18 23:12 87 18 97 Room Air 08/31/18 20:12 89 155/88 08/31/18 20:12 89 155/88 08/31/18 20:00 99 08/31/18 20:00 98.0 98 24 155/88 (110) 96 08/31/18 20:00 Room Air 08/31/18 19:33 97 20 97 Room Air 21 08/31/18 19:01 Room Air 21 08/31/18 19:01 95 Room Air 21 08/31/18 18:59 91 18 95 Room Air 21 08/31/18 16:00 Room Air 08/31/18 16:00 98.3 92 22 131/111 (118) 98 08/31/18 16:00 90 08/31/18 15:37 98 20 100 Room Air 21 08/31/18 15:30 97 18 98 Room Air 21 08/31/18 12:48 157/109 08/31/18 12:19 97 20 100 Room Air 21 08/31/18 12:09 94 18 98 Room Air 21 08/31/18 12:00 97.9 87 20 157/109 (125) 96 08/31/18 12:00 Room Air 08/31/18 12:00 86 Intake and Output 08/31/18 09/01/18 19:00 07:00 Intake Total 1005.0 ml 770.0 ml Output Total 725 ml 1050 ml Balance 280.0 ml -280.0 ml Intake Free Water 300 ml 120 ml IV Total 165.0 ml 110.0 ml Tube Feeding 540 ml 540 ml Output Urine Total 675 ml 1000 ml Stool Total 50 ml 50 ml Laboratory Tests 08/31/18 20:35: Vancomycin Level Trough 27.8H 09/01/18 09:45: Sodium Level [Pending], Potassium Level [Pending], Chloride Level [Pending], Carbon Dioxide Level [Pending], Blood Urea Nitrogen [Pending], Creatinine [ Pending], Estimat Glomerular Filtration Rate [Pending], Glucose Level [Pending] , Calcium Level [Pending], Troponin I [Pending], Pro-B-Type Natriuretic Peptide [Pending] Height (Feet): 5 Height (Inches): 6.00 Weight (Pounds): 139 General Appearance: no apparent distress, alert, confused EENT: normal ENT inspection Neck: normal alignment Cardiovascular: normal rate, regular rhythm Respiratory/Chest: lungs clear Abdomen: non tender, soft Extremities: other - no edema Neurologic: motor weakness, disoriented Sid Mckeon MD Sep 01, 2018 10:38
[2018-09-01 11:02] LABS: ANION GAP 13 mmol/L (5-15); BLOOD UREA NITROGEN 21 mg/dL (7-18); CALCIUM 9.3 MG/DL (8.5-10.1); CARBON DIOXIDE 21 MMOL/L (21-32); CHLORIDE 108 MMOL/L (98-107); CREATININE 0.9 MG/DL (0.55-1.30); SODIUM 142 MMOL/L (136-145)
--- NOTE | 2018-09-01 11:05 | NUR ---
RD ASSESSMENT & RECOMMENDATIONS SEE CARE ACTIVITY FOR COMPLETE ASSESSMENT DAILY ESTIMATED NEEDS: Needs based on cardiac, pulmonary 62.7kg 25-30 kcals/kg 2899-6642 total kcals 1-1.5 g protein/kg 63-94 g total protein 25-30 mL/kg 4373-1134 total fluid mLs NUTRITION DIAGNOSIS: 1) Swallowing difficulty r/t dysphagia, h/o CVA as evidenced by pt is PEG dep, TF's initiated. CURRENT TF: Glucerna 1.5 @45 ENTERAL NUTRITION RECOMMENDATIONS: Glucerna 1.2 @ 55ml/hr x 24 hrs to provide 1320ml, 1584kcal, 79g prot, 1062ml free water - As medically able, rec to resume TF - Initiate Glucerna 1.2 @ 25ml/hr X 6 hrs, advance 10ml q 4-6 hrs as tolerated to goal rate. - HOB over 30 degrees/ water flush per MD ADDITIONAL RECOMMENDATIONS: 1) Calibrated bed scale wt (pt w/ added P200 mattress + pump) . 3) Monitor lytes w/ lasix, replete as needed (Low Phos) 4) Monitor K closely, need for renal TF formula - critically elev upon adm, trending down at this time (on Kdur DIRECTOR DIABETES) .
[2018-09-01] MEDS ORDERED: Nulytely 4L ORAL ONE (11:30)
[2018-09-01 11:42] VITALS: BP 106/69
[2018-09-01 16:00] VITALS: BP 130/98
--- NOTE | 2018-09-01 19:28 | NUR ---
HAND-OFF: Report given to NAV Gonsalves. Pt in stable condition.
[2018-09-01 20:00] VITALS: BP 120/82
[2018-09-01] MEDS ORDERED: NS 500ML ONE (20:00)
[2018-09-01] MEDS ORDERED: Tubing IV Secondary IV ONE (20:00)
[2018-09-01] MEDS ORDERED: NS 275ml ONE (20:00)
[2018-09-01] MEDS ORDERED: Vancomycin 1.25gm Premix IVPB SCH (21:00)
[2018-09-01] MEDS: Dyna-Hex 2% Top Sol 2oz TOPIC SCH (22:28)
[2018-09-01] MEDS: Tamsulosin 0.4mg cap ORAL SCH (22:29)
[2018-09-02] VITALS: BP 131/84
[2018-09-02] MEDS: Zosyn 3.375gm q8h **Extended infusion IVPB SCH ×4 (00:19→08:12)
[2018-09-02] MEDS: Metoclopramide 10mg/2ml Inj IVP SCH ×3 (00:20→11:49)
[2018-09-02] MEDS: Doxazosin 1mg Tab ORAL SCH ×2 (00:20→08:13)
--- NOTE | 2018-09-02 00:30 | Progress Note ---
DATE: 09/01/2018 SUBJECTIVE: The patient is bedbound. He has not been using BiPAP support. He is in no distress. There is no bleeding signs. No chest pain. Feedings are tolerated by G-tube. OBJECTIVE: VITAL SIGNS: Afebrile, blood pressure 157/107, pulse rate 101, and respirations 20. LUNGS: Clear. CARDIAC: Regular. Normal S1 and S2 with a fourth heart sound. NEUROLOGIC: Right hemiparesis and expressive aphasia. EXTREMITIES: Trace dependent edema. LABORATORY AND DIAGNOSTIC DATA: E. coli and ESBL in the sputum and Debi in the urine. Pro-natriuretic peptide 663. Sodium 142, potassium 4, bicarb 21, BUN 21, and creatinine 0.9. Troponin negative. IMPRESSION: 1. Gram-negative pneumonia. 2. Fungal cystitis. 3. Respiratory failure, resolved. 4. Hypertensive cardiomyopathy with elevated blood pressure. 5. Coronary artery disease with stable angina. 6. Seizure disorder. 7. Acute kidney injury, recovering. 8. Atonic bowel with gastroparesis and residuals. PLAN: 1. Antimicrobials. 2. Respiratory hygiene. 3. Anti-platelet therapy. 4. Check lipid panel. 5. Consider statin drugs. 6. Advancing antihypertensive regimen for tighter blood pressure control. Fuentes Gutierres M.D. DR: SOLEDAD JOB#: [id number] CC:
--- NOTE | 2018-09-02 00:57 | NUR ---
NURSE NOTES: Received patient and the change of shift from out going nurse Jose RN. Patient is awake and non verbal. Patient is on room air and tolerated. No s/s of respiratory distress at this moment. PICC line with double lumens intact on left upper arm. Ptient is on GT feeding, Gluverna 1.5 @ 45ml/hr and no residual at this moment. HOB in 45 degree. Lynn catheter and rectal tube intact in place.
[2018-09-02] MEDS: Albuterol/Ipratropium 3ml neb HHN SCH ×3 (03:04→11:45)
[2018-09-02 04:00] VITALS: BP 144/80
[2018-09-02 05:37] LABS: BASOPHILS % (AUTO) 0.7 % (0.0-2.0); EOSINOPHILS % (AUTO) 3.4 % (0.0-3.0); HEMOGLOBIN 11.6 G/DL (14.2-18.0); LYMPHOCYTES % (AUTO) 13.6 % (20.0-45.0); MEAN CORPUSCULAR VOLUME 90 FL (80-99); MONOCYTES % (AUTO) 8.5 % (1.0-10.0); NEUTROPHILS % (AUTO) 73.9 % (45.0-75.0); PLATELET COUNT 300 K/UL (150-450); RED BLOOD COUNT 3.89 M/UL (4.70-6.10); RED CELL DISTRIBUTION WIDTH 14.2 % (11.6-14.8); WHITE BLOOD COUNT 10.2 K/UL (4.8-10.8)
[2018-09-02 06:12] LABS: ANION GAP 12 mmol/L (5-15); BLOOD UREA NITROGEN 22 mg/dL (7-18); CALCIUM 8.8 MG/DL (8.5-10.1); CARBON DIOXIDE 25 MMOL/L (21-32); CHLORIDE 109 MMOL/L (98-107); CHOLESTEROL 90 MG/DL (< 200); HDL CHOLESTEROL 26 MG/DL (40-60); PHOSPHORUS 1.4 MG/DL (2.5-4.9); POTASSIUM 3.2 MMOL/L (3.5-5.1); SODIUM 145 MMOL/L (136-145); TRIGLYCERIDES 153 MG/DL (30-150)
--- NOTE | 2018-09-02 07:20 | NUR ---
NURSE NOTES: RECEIVED PATIENT FROM Kit LARKIN RN. PATIENT IS LYING IN BED, ASLEEP. HOOKED TO COMMERCIAL GREEN BUILDING DESIGNER. ON ROOM AIR. NO SIGNS OF DISTRESS. GT IN PLACE, DRY AND INTACT. GTF RUNNING GLUCERNA 1.5 AT 45CC/HR. RECTAL TUBE NOTED. JOHNS NOTED. SKIN ALTERATION NOTED. ON OVERLAY MATTRESS. PICC ON L UA, SL. CALL LIGHT WITHIN REACH. BED AT LOWEST POSITION. SIDE RAILS UP. SZ PREC IN PLACE. WILL CONTINUE TO MONITOR.
--- NOTE | 2018-09-02 07:53 | NUR ---
HAND-OFF: Report given to Avril Washington RN.
[2018-09-02 08:00] VITALS: BP 137/90
[2018-09-02] MEDS: Aspirin Baby 81mg GT SCH (08:13)
[2018-09-02] MEDS: Phospha 250 Neutral tab GT SCH ×2 (08:13→13:11)
[2018-09-02] MEDS: Miralax 17gm pkt GT SCH (08:15)
[2018-09-02] MEDS: Lisinopril 20mg tab GT SCH (08:15)
[2018-09-02] MEDS: Docusate 100mg/10ml Liq GT SCH (08:16)
--- NOTE | 2018-09-02 09:28 | NUR ---
RADIOLOGY DEPT., CHEST X-RAY DONE.-P.DYE
--- NOTE | 2018-09-02 11:13 | GI Progress Note ---
Assessment/Plan Problems: (1) Colon distention ICD Codes: K63.89 - Other specified diseases of intestine SNOMED: 356226562 (2) Constipated ICD Codes: K59.00 - Constipation, unspecified SNOMED: 11891780 (3) SBO (small bowel obstruction) ICD Codes: K56.609 - Unspecified intestinal obstruction, unspecified as to partial versus complete obstruction SNOMED: 583907702 (4) Ileus ICD Codes: K56.7 - Ileus, unspecified SNOMED: 944349426 (5) Abdominal distension ICD Codes: R14.0 - Abdominal distension (gaseous) SNOMED: 96778720 Status: progressing Status Narrative Discussed with Dr. Parra Assessment/Plan CT AP reviewed, SB and sigmoid distention more likely functional in nature 2 L GoLYTELY given yesterday okay for DC per GI standpoint rectal tube for colonic decompression needs frequent turning reglan ATC okay to start GTFs Antibiotics per infectious disease zinc oxide daily around GT site daily GT site care 3 times daily and as needed PPI GTFs per RD when cleared Follow labs The patient was seen and examined at bedside and all new and available data was reviewed in the patients chart. I agree with the above findings, impression and plan. (Patient seen earlier today. Signature stamp does not reflect patient encounter time.). - Homar Parra MD Subjective Subjective LIMITED Objective Last 24 Hour Vital Signs Date Time Temp Pulse Resp B/P (MAP) Pulse Ox O2 Delivery O2 Flow Rate FiO2 09/02/18 08:15 137/90 09/02/18 08:15 111 137/90 09/02/18 08:15 111 137/90 09/02/18 08:00 98.2 109 18 137/90 (106) 94 09/02/18 08:00 69 09/02/18 08:00 Room Air 09/02/18 07:40 92 18 99 Room Air 21 09/02/18 07:30 98 18 96 Room Air 21 09/02/18 04:00 97.5 111 24 144/80 (101) 95 09/02/18 04:00 Room Air 09/02/18 04:00 101 09/02/18 03:15 96 18 100 Room Air 21 09/02/18 03:04 98 18 96 Room Air 21 09/02/18 00:00 98.2 92 24 131/84 (100) 96 09/02/18 00:00 92 09/02/18 00:00 Room Air 09/01/18 23:23 93 18 98 Room Air 21 09/01/18 23:13 90 18 96 Room Air 21 09/01/18 22:36 107 120/82 09/01/18 22:36 107 120/82 09/01/18 20:25 104 18 98 Room Air 21 09/01/18 20:15 102 18 96 Room Air 21 09/01/18 20:00 Room Air 09/01/18 20:00 101 09/01/18 20:00 98.4 107 24 120/82 (95) 96 09/01/18 17:39 130/98 09/01/18 16:00 103 09/01/18 16:00 97.7 102 18 130/98 (109) 99 09/01/18 16:00 Room Air 09/01/18 14:56 92 18 98 Room Air 21 09/01/18 14:46 93 17 96 Room Air 09/01/18 12:16 106/69 09/01/18 12:00 Room Air 09/01/18 12:00 90 09/01/18 11:42 97.7 85 20 106/69 (81) 97 Intake and Output 09/01/18 09/02/18 19:00 07:00 Intake Total 932.5 ml 1076.875 ml Output Total 550 ml Balance 382.5 ml 1076.875 ml Intake Free Water 200 ml 200 ml IV Total 192.5 ml 336.875 ml Tube Feeding 540 ml 540 ml Output Urine Total 350 ml Stool Total 200 ml Laboratory Tests Test 09/01/18 17:40 09/02/18 03:35 Random Vancomycin Level 14.0 ug/mL White Blood Count 10.2 K/UL (4.8-10.8) Red Blood Count 3.89 M/UL (4.70-6.10) L Hemoglobin 11.6 G/DL (14.2-18.0) L Hematocrit 35.0 % (42.0-52.0) L Mean Corpuscular Volume 90 FL (80-99) Mean Corpuscular Hemoglobin 29.8 PG (27.0-31.0) Mean Corpuscular Hemoglobin Concent 33.2 G/DL (32.0-36.0) Red Cell Distribution Width 14.2 % (11.6-14.8) Platelet Count 300 K/UL (150-450) Mean Platelet Volume 5.9 FL (6.5-10.1) L Neutrophils (%) (Auto) 73.9 % (45.0-75.0) Lymphocytes (%) (Auto) 13.6 % (20.0-45.0) L Monocytes (%) (Auto) 8.5 % (1.0-10.0) Eosinophils (%) (Auto) 3.4 % (0.0-3.0) H Basophils (%) (Auto) 0.7 % (0.0-2.0) Sodium Level 145 MMOL/L (136-145) Potassium Level 3.2 MMOL/L (3.5-5.1) L Chloride Level 109 MMOL/L (98-107) H Carbon Dioxide Level 25 MMOL/L (21-32) Anion Gap 12 mmol/L (5-15) Blood Urea Nitrogen 22 mg/dL (7-18) H Creatinine 1.0 MG/DL (0.55-1.30) Estimat Glomerular Filtration Rate > 60 mL/min (>60) Glucose Level 99 MG/DL (74-106) Calcium Level 8.8 MG/DL (8.5-10.1) Phosphorus Level 1.4 MG/DL (2.5-4.9) L Magnesium Level 1.9 MG/DL (1.8-2.4) Triglycerides Level 153 MG/DL (30-150) H Cholesterol Level 90 MG/DL (< 200) LDL Cholesterol 52 mg/dL (<100) HDL Cholesterol 26 MG/DL (40-60) L Cholesterol/HDL Ratio 3.5 (3.3-4.4) Height (Feet): 5 Height (Inches): 6.00 Weight (Pounds): 139 General Appearance: no apparent distress, thin Cardiovascular: normal rate Respiratory/Chest: normal breath sounds, no respiratory distress Abdominal Exam: normal bowel sounds, non tender, soft, distended - Still distended, however has improved, GT site - Clean dry and intact, no leakage noted Extremities: non-tender Raudel Joyce COSMETOLOGIST APPRENTICE Sep 02, 2018 11:13
--- NOTE | 2018-09-02 11:34 | Diagnostic Imaging Report ---
Indication: Cough Technique: One view of the chest Comparison: 08/30/2018 Findings: Left arm PICC remains in stable satisfactory position. Inspiration is less optimal, with atelectasis and crowding of vascular markings at the lung bases. Exposure is also less optimal. The left hemidiaphragm is not visualized, probably due to to the underventilation, but pleural effusion and/or consolidation not excludable. There is equivocal mild interstitial congestion. The lower cervical trachea appears slightly decreased related to the left, and the upper cervical trachea appears deviated to the right and narrowed. Impression: Hypoventilatory exam with bibasilar atelectasis Equivocal mild interstitial congestion, if real new/increased since 08/30/2018 Cannot rule out parenchymal disease at the left lung base. Possible tracheal deviation and narrowing. Suspect related to tortuous ectatic vasculature, but upper mediastinal/lower cervical mass also possible. Consider chest CT for better characterization if clinically indicated
[2018-09-02 12:00] VITALS: BP 155/105
[2018-09-02] MEDS ORDERED: DOXAZOSIN MESYLA1 MG ORAL (12:30)
[2018-09-02] MEDS ORDERED: METOCLOPRAM5 MG/1 M1 IVP (12:30)
[2018-09-02] MEDS ORDERED: ASPIRIN81 MG GT (12:30)
--- NOTE | 2018-09-02 13:47 | NUR ---
DISCHARGE PLANNED PT. DC TO [facility] ROOM 26C SKILLED T [phone] FOR NURSE TO NURSE REPORT [employer] LINE HAS BEEN ARRANGED FOR DEVELOPER RELATIONS MANAGER WILL CALL NURSE TO CALL [phone] AND ACTIVATE WILL CALL Addendum: 09/02/18 at 1356 by Lolita Gama LVN ROOM 29
[2018-09-02 16:00] VITALS: BP 154/88
[2018-09-02] MEDS ORDERED: Tubing Blood Filter IV ONE (16:19)
[2018-09-02] MEDS ORDERED: NS 275ml ONE (16:19)
[2018-09-02] MEDS ORDERED: Tubing IV Secondary IV ONE (16:19)
[2018-09-02] MEDS ORDERED: D5W 275ml ONE (16:19)
--- NOTE | 2018-09-02 16:20 | NUR ---
NURSE NOTES: REPORT GIVEN TO FAVIAN VANCE. ALL QUESTIONS ANSWERED. PICKED-UP BY JUDITH ALEXANDER OF [id number]. PACKET GIVEN. DGT INFORMED OF TRANSFER.
--- NOTE | 2018-09-03 04:30 | Progress Note ---
DATE: 09/02/2018 CARDIOLOGY PROGRESS NOTE SUBJECTIVE: Condition continues to improve. The patient is without distress. OBJECTIVE: VITAL SIGNS: Blood pressure 137/90, pulse 111, and respirations 18. Afebrile. Earlier, heart rate was 70. NECK: Supple. LUNGS: Clear. CARDIAC: Regular. ABDOMEN: Soft. G-tube intact. EXTREMITIES: Trace edema. IMPRESSION: 1. Pneumonia. 2. Respiratory failure. 3. Hypertensive cardiomyopathy. 4. Coronary artery disease. 5. Acute renal failure, resolved. 6. Tonic bowel, improved. PLAN: 1. Progress is adequate. 2. The [facility]. 3. Based on today's lipid panel of LDL 52, no additional anti-lipid therapy is indicated and ongoing monitoring of potassium with replacement will follow at [facility] facility. Fuentes Gutierres M.D. DR: TIMOTHY JOB#: [id number] CC:
--- NOTE | 2018-09-05 08:37 | Discharge Summary ---
Discharge Summary Discharge Summary _ DATE OF ADMISSION: 08/27/2018 DATE OF DISCHARGE: 09/02/2018 DISCHARGED BY: Dr. Oquendo REASON FOR ADMISSION: 63 years old male with past medical history of CVA with right hemiparesis with expressive aphasia, hypertension, coronary artery disease, COPD, dysphagia, G- tube, with multiple episodes of G-tube malfunction, cerebral hemorrhage, seizure disorder, dysphagia, recent G-tube site cellulitis, was admitted for respiratory distress and abdominal distention. Patient started on BiPAP at the facility with some improvement. Patient was referred to ED for further evaluation by his attending physician. Vital signs revealed no fever, but showed tachycardia and tachypnea with heart rate 125, respiratory rate 26. No fever. Patient required 5 L of nasal cannula with pulse oximetry reaching 98%. Laboratory workup revealed mild leukocytosis, 11.8, hemoglobin 13.5, hematocrit 42.9. Potassium 6.7. BUN 41, creatinine 1.2. Stable LFT. Troponin negative. Pro BNP 194. EKG revealed sinus tachycardia no acute ischemic changes. Albumin 3.7. Urinalysis revealed evidence of UTI. Chest x-ray demonstrated mild cardiomegaly, borderline interstitial congestion, right basilar atelectatic changes. CT of the abdomen and pelvis revealed segmentally distended colon and distal small bowel without evidence of obstructive pathology, most likely functional in nature. No definite acute process otherwise. Nonvisualized appendix. Basilar pulmonary parenchymal atelectasis and consolidation. Patient was admitted for respiratory failure, abdominal distention, history of seizure disorder, history of CVA due to right intracranial hemorrhage with right hemiparesis and expressive aphasia, hypertension, coronary artery disease. CONSULTANTS: building supervisor GI specialist Dr. Parra crotch piece baster Dr. Mckeon HOSPITAL COURSE: Patient admitted to direct observational unit for cardiac monitoring.. Patient initially started on IV hydration with close monitoring of volumes and cardiorenal parameters. Hyperkalemia was corrected. Patient started on broad-spectrum antibiotic. Pulmonary toilet with bronchodilator provided. ABG was stable on BiPAP. BiPAP provided with gradual weaning to oxygen via nasal cannula as tolerated Supplemental oxygen titrated to keep pulse oximetry above 92%. [facility] facility medication were resumed. GI, crotch piece baster and building supervisor consult were requested. DVT prophylaxis provided. Venous duplex bilateral lower extremity revealed no evidence of acute DVT. Mixer Foam Rubber closely follow. Renal ultrasound revealed no evidence of hydronephrosis. Normal echogenicity of bilateral kidney was demonstrated. IV fluids stopped. Patient started on Lasix with close monitoring of volumes and cardiorenal parameters. FITZ inhibitor stopped. Renal parameters and electrolytes were closely monitored. Nephrotoxins were avoided. Electrolytes corrected as needed. Hyperkalemia resolved with the treatment. Blood cultures were negative. Urine culture revealed Debi. Sputum culture revealed E. coli ESBL. Patient was on antibiotics based on culture results Patient was followed-up with chest x-ray. No evidence of pneumonia on chest x- ray as per cisco engineer , who doubted pneumonia. However, patient received full treatment for pneumonia with E. coli ESBL found in sputum. News Writer closely followed. Echocardiogram demonstrated preserved ejection fraction 55-60%. No evidence of wall motion abnormality. Mild left ventricular hypertrophy. No evidence of pericardial effusion. Right ventricular systolic pressure of 17. Moderately elevated left atrial pressure grade 2. Repeated troponin was negative. Lipid panel was stable. Patient was on diuresis with close monitoring of volumes and cardiorenal parameters. Patient was closely observed for bradyarrhythmia. Initially antihypertensive where on hold secondary to hypotension. Later during the stay, patient was noted to have labile blood pressure. Antihypertensive medication regimen was restarted and titrated with multiply antihypertensive medication. Antiplatelet therapy with aspirin and nitrates were continued. Antihypertensive regimen was further advanced for tighter blood pressure control as per cardiology recommendation. GI specialist followed. After reviewing CAT scan of abdomen and pelvis, he concluded that colonic/ sigmoid distention and small bowel distention were most likely functional in nature. Initially rectal tube was inserted for colonic decompression. Patient started on Reglan [id number] to improve motility. Patient slowly started on tube feeding with gradual increase to goal rate. Patient was noted to have some leakage around G-tube. Topical management with zinc oxide daily around G-tube site was provided. Patient started on PPI. Bowel regimen instituted. Patient also received 2 L of GoLYTELY. Seizure precautions maintained. No evidence of seizure activity while in the hospital. Patient improved and clinically stabilized with diuresis. Patient was able to tolerate tube feeding. Respiratory failure resolved. Pulse oximetry stable on room air prior to discharge Acute kidney injury resolved. BUN 22, creatinine 1.0. Patient was stable for discharge back to [facility] facility for continuation of care FINAL DIAGNOSES: Sepsis Respiratory failure- resolved Acute kidney injury/likely prerenal-resolved Electrolyte imbalance Debi infection Possible healthcare acquired pneumonia with E. coli ESBL Cerebrovascular disease with history of CVA with right hemiparesis, aphasia, and dysphagia Acute on chronic diastolic heart failure Hypertensive heart disease with labile blood pressure Nonsustained ventricular tachycardia Coronary artery disease Seizure disorder Colon distention -improved Ileus DISCHARGE MEDICATIONS: See Medication Reconciliation list. DISCHARGE INSTRUCTIONS: Patient was discharged to the [facility] facility. Follow up with medical doctor at the facility. I have been assigned to dictate discharge summary for this account. I was not involved in the patient's management. Mimi Feliz NP Sep 05, 2018 08:37
--- NOTE | 2018-09-06 14:06 | Cardiology Report ---
APPROVED REPORT EKG Measurement Heart [id number] Sinus tachycardia Left axis deviation Minimal voltage criteria for LVH, may be normal variant Possible Lateral infarct, age undetermined Abnormal ECG
== END 2018-09-02 16:20 | DRG 189 ==
LOC: EDBD 18:43 → EDBEDREQ 19:06 → EMR 19:08 → 2W 21:12 → EDBEDREQSVC 21:36 → EDBEDREQ 08-28 00:05 → EMR 08-28 01:35
DX: J96.90 Respiratory failure, unspecified, unspecified whether with hypoxia or hypercapnia (principal); J15.5 Pneumonia due to Escherichia coli; I50.33 Acute on chronic diastolic (congestive) heart failure; I69.951 Hemiplegia and hemiparesis following unspecified cerebrovascular disease affecting right dominant side; B37.41 Candidal cystitis and urethritis; J44.0 Chronic obstructive pulmonary disease with (acute) lower respiratory infection; N17.9 Acute kidney failure, unspecified; K56.7 Ileus, unspecified; I11.0 Hypertensive heart disease with heart failure; E87.5 Hyperkalemia; R00.0 Tachycardia, unspecified; Z93.1 Gastrostomy status; I25.118 Atherosclerotic heart disease of native coronary artery with other forms of angina pectoris; G40.909 Epilepsy, unspecified, not intractable, without status epilepticus; R13.10 Dysphagia, unspecified; F03.90 Unspecified dementia, unspecified severity, without behavioral disturbance, psychotic disturbance, mood disturbance, and anxiety; I25.9 Chronic ischemic heart disease, unspecified; Y95 Nosocomial condition
CPT/HCPCS: 36415; 36600; 71045; 74176; 76770; 80048; 80053; 80061; 80202; 81003; 82803; 83690; 83735; 83880; 84100; 84443; 84484; 85025; 85610; 85730; 87040; 87070; 87086; 87181; 87205; 93005; 93306; 93970; 94640; 94660; 94664; 94760; 96365; 96367; 96368; 96375; 99291; C9399; J2765; J7620; J8499

== ENCOUNTER 2018-11-13 22:54 | Inpatient (IN) | payer MEDICARE, BC, MEDICAID ==
[~2018-11-13] VITALS: Ht 162.6 cm; Wt 63.5 kg
[~2018-11-13 22:54] MED LIST changes: +AMLODIPINE BESY10 MG ORAL; +ASPIRIN81 MG GT; +CATAPRES-TTS-31 EA TDERMAL; +DOXAZOSIN MESYLA1 MG ORAL; +LISINOPRIL20 MG ORAL; +METOCLOPRAM5 MG/1 M1 IVP
--- NOTE | 2018-11-13 23:05 | NUR ---
ED Nurse Note: PATIENT PRESENTS BIBA FROM [facility] WITH COMPLAINTS OF ABDOMINAL DISTENTION X 1 DAY. PATIENT HAS G-TUBE.
[2018-11-13 23:06] VITALS: BP 155/88
[2018-11-13] MEDS ORDERED: Metoclopramide 10mg/2ml Inj IVP ONE (23:15)
[2018-11-13] MEDS ORDERED: Isovue-300 100ml vial INJ PRN (23:15)
[2018-11-13] MEDS ORDERED: DiphenhydrAMINE 50mg/ml Inj IVP ONE (23:15)
--- NOTE | 2018-11-14 00:05 | NUR ---
ED Nurse Note: Ptietn is resting calmly with no s/s of distress. Vital signs stable.
[2018-11-14 00:12] LABS: BASOPHILS % (AUTO) 0.9 % (0.0-2.0); EOSINOPHILS % (AUTO) 3.6 % (0.0-3.0); HEMOGLOBIN 14.6 G/DL (14.2-18.0); LYMPHOCYTES % (AUTO) 18.8 % (20.0-45.0); MEAN CORPUSCULAR VOLUME 88 FL (80-99); MONOCYTES % (AUTO) 9.3 % (1.0-10.0); NEUTROPHILS % (AUTO) 67.4 % (45.0-75.0); PLATELET COUNT 342 K/UL (150-450); RED BLOOD COUNT 5.03 M/UL (4.70-6.10); RED CELL DISTRIBUTION WIDTH 13.5 % (11.6-14.8); WHITE BLOOD COUNT 8.3 K/UL (4.8-10.8)
--- NOTE | 2018-11-14 00:26 | NUR ---
ED Nurse Note: Swabs done. CRE, VRe, MRSA
[2018-11-14 00:27] LABS: ANION GAP 11 mmol/L (5-15); BLOOD UREA NITROGEN 17 mg/dL (7-18); CALCIUM 10.2 MG/DL (8.5-10.1); CARBON DIOXIDE 24 MMOL/L (21-32); CHLORIDE 103 MMOL/L (98-107); CREATININE 0.9 MG/DL (0.55-1.30); POTASSIUM 4.1 MMOL/L (3.5-5.1); SODIUM 138 MMOL/L (136-145)
[2018-11-14 00:32] LABS: ALANINE AMINOTRANSFERASE 25 U/L (12-78); ALBUMIN 4.2 G/DL (3.4-5.0); ALBUMIN/GLOBULIN RATIO 0.8 (1.0-2.7); ALKALINE PHOSPHATASE 192 U/L (46-116); ASPARTATE AMINO TRANSFERASE 17 U/L (15-37); BILIRUBIN,TOTAL 0.6 MG/DL (0.2-1.0); CREATINE KINASE 44 U/L (26-308)
--- NOTE | 2018-11-14 01:04 | NUR ---
ED Nurse Note: Patient went down for CT.
--- NOTE | 2018-11-14 01:26 | NUR ---
ED Nurse Note: Patient came back from CT.
[2018-11-14 01:54] LABS: APPEARANCE,URINE SLIGHTLY CLOUDY; BILIRUBIN, URINE NEGATIVE (NEGATIVE); COLOR,URINE PALE YELLOW; GLUCOSE, URINE (UA) NEGATIVE (NEGATIVE); KETONES,URINE NEGATIVE (NEGATIVE); LEUKOCYTE ESTERASE ,URINE 1+ (NEGATIVE); NITRITE,URINE POSITIVE (NEGATIVE); PH,URINE 9 (4.5-8.0); PROTEIN,URINE 2+ (NEGATIVE); UROBILINOGEN,URINE NORMAL MG/DL (0.0-1.0)
--- NOTE | 2018-11-14 02:11 | NUR ---
ED Nurse Note: Patient resting comfortably, awaiting results from urine before transport to floor.
--- NOTE | 2018-11-14 03:11 | NUR ---
ED Nurse Note: Patient cleaned up, back inspected, no signs of wounds. Patient's skin is dry and intact. Patient repositioned for comfort.
--- NOTE | 2018-11-14 03:50 | NUR ---
ED Nurse Note: Patient cleared for transport to floor. Report called into Angela CHOPRA prior to transport by medical equipment repair technician.
--- NOTE | 2018-11-14 04:33 | Emergency Room Report ---
History of Present Illness General Chief Complaint: Abdominal Pain Source: Patient, EMS Present Illness HPI The patient was sent in because of abdominal distention. He has a gastrostomy tube. The patient is post stroke and therefore communication is somewhat limited although the patient is able to answer yes and now. He does nod his head yes that there is some pain there but is unable to describe how much. He feels that he is constipated. He has a chronic indwelling Lynn catheter also. Patient denies any fevers or chills. There is been no vomiting. The patient denies cough, chest pain or extremity pain. He also denies headache. The rest of the history is difficult to obtain due to expressive aphasia. Admitted August 2018 with these d/c dx: Sepsis Respiratory failure- resolved Acute kidney injury/likely prerenal-resolved Electrolyte imbalance Debi infection Possible healthcare acquired pneumonia with E. coli ESBL Cerebrovascular disease with history of CVA with right hemiparesis, aphasia, and dysphagia Acute on chronic diastolic heart failure Hypertensive heart disease with labile blood pressure Nonsustained ventricular tachycardia Coronary artery disease Seizure disorder Colon distention -improved Ileus Allergies: Coded Allergies: NO KNOWN ALLERGIES (Unverified Allergy, Unknown, 03/02/15) Patient History Limited by: medical condition Past Medical History: see triage record, old chart reviewed Past Surgical History: other - Gastrostomy tube Social History: Denies: smoking Social History Narrative correction facility Reviewed Nursing Documentation: PMH: Agreed; PSxH: Agreed Nursing Documentation-PMH Hx Hypertension: Yes Hx Pacemaker: No Hx Asthma: No Hx COPD: Yes Hx Diabetes: No Hx Cancer: No Hx Gastrointestinal Problems: Yes - GERD, BPH Hx Dialysis: No Hx Neurological Problems: Yes - seizures, cerebral brain hemorrhage with right hemiparesis, aphasia Hx Cerebrovascular Accident: Yes - RT elbow contracted, generalized muscle weakness Hx Seizures: Yes Hx Paralysis: Yes - right sided hemiplegia Hx Head Trauma: Yes - INTERCEREBRAL HEMORRHAGE Hx Speech Problem: Yes - APHASIA Hx Aphasia: Yes Hx Dysphasia: Yes Hx Weakness: Yes - Right sided weakness Review of Systems All Other Systems: limited Physical Exam Vital Signs Date Time Temp Pulse Resp B/P (MAP) Pulse Ox O2 Delivery O2 Flow Rate FiO2 11/13/18 22:48 98.6 99 19 155/88 (110) 96 Nasal Cannula 2.0 Sp02 EP Interpretation: reviewed, abnormal - Interpreted as slightly low by me General Appearance: no apparent distress, alert, non-toxic, Chronically Ill Head: normocephalic, atraumatic Eyes: bilateral eye normal inspection, bilateral eye PERRL ENT: moist mucus membranes Neck: supple, no meningismus Respiratory: chest non-tender, lungs clear, normal breath sounds Cardiovascular #1: regular rate, rhythm Cardiovascular #2: 2+ radial (R) Gastrointestinal: normal bowel sounds, no mass, no guarding, no rebound, distended, other - Gastrostomy tube Genitourinary: no CVA tenderness, other - Lynn catheter Musculoskeletal: other - R sided contractures Neurologic: alert, motor weakness - r hemiparesis, oriented - X2 Psychiatric: mood/affect normal Skin: normal inspection, warm/dry Medical Decision Making Diagnostic Impression: Primary Impression: Abdominal distension Additional Impression: UTI (urinary tract infection) Qualified Codes: T83.511A - Infection and inflammatory reaction due to indwelling urethral catheter, initial encounter; N39.0 - Urinary tract infection , site not specified ER Course Patient presents with abdominal distention. Differential includes small bowel obstruction, impaction, ascites, ileus amongst others. Patient is evaluated with EKG, chest x-ray, CT abdomen and pelvis and labs. The patient is given IV hydration. Complex patient with multiple comorbidities and with communication difficulty. EKG without injury. Chest x-ray no infiltrates. Labs with normal white count and electrolytes. Urinalysis reported with sediment and turbid by RN. CT without obstruction. See full report below. Antibiotics given. Improved but complicated clinical presentation. Needs admission Laboratory Tests Test 11/13/18 23:45 11/14/18 01:43 11/14/18 10:45 White Blood Count 8.3 K/UL (4.8-10.8) 8.8 K/UL (4.8-10.8) Red Blood Count 5.03 M/UL (4.70-6.10) 4.68 M/UL (4.70-6.10) L Hemoglobin 14.6 G/DL (14.2-18.0) 13.3 G/DL (14.2-18.0) L Hematocrit 44.0 % (42.0-52.0) 41.0 % (42.0-52.0) L Mean Corpuscular Volume 88 FL (80-99) 88 FL (80-99) Mean Corpuscular Hemoglobin 29.0 PG (27.0-31.0) 28.5 PG (27.0-31.0) Mean Corpuscular Hemoglobin Concent 33.1 G/DL (32.0-36.0) 32.5 G/DL (32.0-36.0) Red Cell Distribution Width 13.5 % (11.6-14.8) 13.1 % (11.6-14.8) Platelet Count 342 K/UL (150-450) 304 K/UL (150-450) Mean Platelet Volume 6.4 FL (6.5-10.1) L 5.9 FL (6.5-10.1) L Neutrophils (%) (Auto) 67.4 % (45.0-75.0) 74.8 % (45.0-75.0) Lymphocytes (%) (Auto) 18.8 % (20.0-45.0) L 18.3 % (20.0-45.0) L Monocytes (%) (Auto) 9.3 % (1.0-10.0) 6.0 % (1.0-10.0) Eosinophils (%) (Auto) 3.6 % (0.0-3.0) H 0.4 % (0.0-3.0) Basophils (%) (Auto) 0.9 % (0.0-2.0) 0.6 % (0.0-2.0) Prothrombin Time 10.6 SEC (9.30-11.50) Prothrombin Time INR 1.0 (0.9-1.1) PTT 32 SEC (23-33) Sodium Level 138 MMOL/L (136-145) Pending Potassium Level 4.1 MMOL/L (3.5-5.1) Pending Chloride Level 103 MMOL/L (98-107) Pending Carbon Dioxide Level 24 MMOL/L (21-32) Pending Anion Gap 11 mmol/L (5-15) Blood Urea Nitrogen 17 mg/dL (7-18) Pending Creatinine 0.9 MG/DL (0.55-1.30) Pending Estimate Glomerular Filtration Rate > 60 mL/min (>60) Pending Glucose Level 111 MG/DL (74-106) H Pending Calcium Level 10.2 MG/DL (8.5-10.1) H Pending Total Bilirubin 0.6 MG/DL (0.2-1.0) Pending Aspartate Amino Transferase (AST) 17 U/L (15-37) Pending Alanine Aminotransferase (ALT) 25 U/L (12-78) Pending Alkaline Phosphatase 192 U/L (46-116) H Pending Total Creatine Kinase 44 U/L (26-308) Troponin I 0.000 ng/mL (0.000-0.056) Total Protein 9.2 G/DL (6.4-8.2) H Pending Albumin 4.2 G/DL (3.4-5.0) Pending Globulin 5.0 g/dL Pending Albumin/Globulin Ratio 0.8 (1.0-2.7) L Lipase 264 U/L (73-393) Urine Color Pale yellow Urine Appearance Slightly cloudy Urine pH 9 (4.5-8.0) Urine Specific [place] 1.010 (1.005-1.035) Urine Protein 2+ (NEGATIVE) H Urine Glucose (UA) Negative (NEGATIVE) Urine Ketones Negative (NEGATIVE) Urine Blood 2+ (NEGATIVE) H Urine Nitrite Positive (NEGATIVE) H Urine Bilirubin Negative (NEGATIVE) Urine Urobilinogen Normal MG/DL (0.0-1.0) Urine Leukocyte Esterase 1+ (NEGATIVE) H Urine RBC 2-4 /HPF (0 - 0) H Urine WBC 0-2 /HPF (0 - 0) Urine Squamous Epithelial Cells Occasional /LPF Urine Calcium Oxalate Crystals Many /LPF (NONE) Urine Amorphous Sediment Moderate /LPF (NONE) H Urine Bacteria Few /HPF (NONE) EKG Diagnostic Results Rate: normal Rhythm: NSR ST Segments: no acute changes Rhythm Strip Diag. Results EP Interpretation: yes Rhythm: NSR, no PVC's, no ectopy Chest X-Ray Diagnostic Results Chest X-Ray Diagnostic Results : Chest X-Ray Ordered: Yes # of Views/Limited/Complete: 1 View Indication: Other EP Interpretation: Yes Interpretation: no consolidation, no effusion, no pneumothorax Impression: No acute disease Electronically Signed by: Electronically signed by Fuentes Ching MD CT/MRI/US Diagnostic Results CT/MRI/US Diagnostic Results : Imaging Test Ordered: abd/pelvis Impression Impression: No acute abnormality 15 mm exophytic soft tissue attenuation mass coming off of the lower pole the right kidney, evident on is far back as 05/26/2016. Given stability, most likely a benign process such as a hyperattenuating cyst . However, continued imaging surveillance is recommended to rule out quiescent neoplasm if clinically indicated Spinal findings suggestive of chronic ankylosing spondylitis Prostatomegaly, also previously described Other findings as noted, including liver cyst, left lower pole renal cyst, gastrostomy, Lynn catheter,, degenerative changes of the hips, basilar pulmonary parenchymal atelectatic changes Last Vital Signs Date Time Temp Pulse Resp B/P (MAP) Pulse Ox O2 Delivery O2 Flow Rate FiO2 11/13/18 23:06 99 19 Nasal Cannula 2.0 11/13/18 23:06 98.6 155/88 96 Status: improved Disposition: ADMITTED INPATIENT Condition: Serious Referrals: Jose J Oquendo MD (PCP) Fuentes Ching MD November 14, 2018 04:33
--- NOTE | 2018-11-14 05:35 | NUR ---
NURSE NOTES: Admitted a 63 year old male, non-verbal but able to shake head by answering yes or no, on room air saturating 100%. No complaints of pain at this time. With gtube, clamped. Skin assessment done. IV access on left hand g.20. Called Dr. Oquendo for admission orders. Orders obtained for Zosyn, 1/2NS IVF@ 100/hr, titrate O2 to 92%-93% and call Dr. Oquendo at 9am for further orders. Charge nurse made aware. Instructed patient the use of call light. Call light and needs in reach. Bed in lowest position, lock engaged and alarm on. Will continue to monitor.
[2018-11-14] MEDS: Piperacillin/Tazobactam 3.375 GM in NS 110 ML IVPB SCH ×2 (06:28→13:34)
--- NOTE | 2018-11-14 07:29 | NUR ---
HAND-OFF: Report given to NAV Elliott and to follow up other orders of Dr. Oquendo.
--- NOTE | 2018-11-14 07:51 | NUR ---
NURSE NOTES: Patient received resting in bed, no signs of respiratory distress or pain observed. G-tube is clamped at this time. Lynn catheter intact. Fluids running at 100cc/hr. Bed locked in lowest position. Side rails padded. Call light placed within reach. Will continue to monitor. Will follow up with admission orders.
[2018-11-14 08:00] VITALS: BP 140/95
--- NOTE | 2018-11-14 08:58 | NUR ---
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 UTI VS: BP 155/88, P 99, T 98.6, RR 19, SpO2 96 on 2.0L NC IS:ZOSYN 110ml NS x1L IV LEVOFLOXACIN 150ml IVPB BENADRYL 25mg IVP ADMITTED TO MED/SURG DCP: RETURN TO [facility]
[2018-11-14] MEDS ORDERED: Acetaminophen 650mg/20.3ml NG PRN ×2 (09:15→09:30)
[2018-11-14] MEDS ORDERED: Acetaminophen 650mg/20.3ml GT PRN (09:30)
--- NOTE | 2018-11-14 10:53 | Diagnostic Imaging Report ---
Clinical Indication: Abdominal pain x3 days Technique: Patient given enteric contrast. IV administration nonionic contrast. Venous phase spiral acquisition obtained through the abdomen and pelvis. Multiplanar reconstructions were generated. Total dose length product 858.02 mGycm. CTDIvol(s) 19.07 mGy. Dose reduction achieved using automated exposure control Comparison: Noncontrast abdomen pelvis CT dated 08/27/2018 Findings: There are a few areas where the colon is gas-filled, upper limits normal in caliber, but this is markedly decreased from the previous study. Hepatocolonic interposition is again demonstrated. Mild amount of liquid stool is seen in the ascending colon. The appendix is not definitely demonstrated, but there are no findings to suggest acute appendicitis. No evidence of diverticulosis or diverticulitis. Contrast fills most of the small bowel, but some distal loops remain unopacified. Small bowel is normal in caliber and there is no wall thickening. No free or loculated intraperitoneal gas or fluid is evident. There is a gastrostomy tube again demonstrated, position satisfactory. Stomach, distal esophagus, duodenum are otherwise unremarkable. The liver demonstrates a cyst in segment one, also previously evident. The gallbladder demonstrates questionable small gallstones. No biliary ductal dilatation. The pancreas, spleen, adrenals are unremarkable. A 15 mm mass is seen coming off of the lower pole of the right kidney. This demonstrates nonspecific soft tissue attenuation and equivocal enhancement. It is visible as far previously as a prior CT scanner at 06/05/2016 and appears unchanged in size from that time, although is not evident on even earlier 2013 exam. A large cyst is again demonstrated coming off of the lower pole of left kidney. A nonobstructing 3 mm calcification is again demonstrated in the right upper pole renal collecting system. No hydronephrosis or hydroureter, or ureteral calculi. The bladder is nearly empty, contains a Lynn catheter. The prostate is enlarged. No pelvic mass or adenopathy. Posterior and anterior lumbar spine syndesmophytes and ankylosis of the bilateral sacroiliac joints again noted. There are degenerative changes of the bilateral hips. The included lung bases demonstrate atelectatic changes. Impression: No acute abnormality 15 mm exophytic soft tissue attenuation mass coming off of the lower pole the right kidney, evident on is far back as 05/26/2016. Given stability, most likely a benign process such as a hyperattenuating cyst . However, continued imaging surveillance is recommended to rule out quiescent neoplasm if clinically indicated Spinal findings suggestive of chronic ankylosing spondylitis Prostatomegaly, also previously described Other findings as noted, including liver cyst, left lower pole renal cyst, gastrostomy, Lynn catheter,, degenerative changes of the hips, basilar pulmonary parenchymal atelectatic changes This agrees with the preliminary interpretation provided overnight by [facility] teleradiology service. The CT scanner at [facility] is accredited by the [employer] and the scans are performed using protocols designed to limit radiation exposure to as low as reasonably achievable to attain images of sufficient resolution adequate for diagnostic evaluation.
--- NOTE | 2018-11-14 11:29 | Diagnostic Imaging Report ---
Indication: Abdominal pain and shortness of breath Technique: One view of the chest Comparison: 09/02/2017 Findings: Better inspiration currently. Previously demonstrated PICC is no longer evident. The heart is borderline enlarged. There is equivocal mild interstitial congestion. There are degenerative changes of the right shoulder Impression: Borderline cardiomegaly and equivocal mild interstitial congestion-correlate with clinical findings.
[2018-11-14 11:32] LABS: BASOPHILS % (AUTO) 0.6 % (0.0-2.0); EOSINOPHILS % (AUTO) 0.4 % (0.0-3.0); HEMOGLOBIN 13.3 G/DL (14.2-18.0); LYMPHOCYTES % (AUTO) 18.3 % (20.0-45.0); MEAN CORPUSCULAR VOLUME 88 FL (80-99); NEUTROPHILS % (AUTO) 74.8 % (45.0-75.0); PLATELET COUNT 304 K/UL (150-450); RED BLOOD COUNT 4.68 M/UL (4.70-6.10); RED CELL DISTRIBUTION WIDTH 13.1 % (11.6-14.8); WHITE BLOOD COUNT 8.8 K/UL (4.8-10.8)
--- NOTE | 2018-11-14 11:36 | NUR ---
RD ASSESSMENT & RECOMMENDATIONS SEE CARE ACTIVITY FOR COMPLETE ASSESSMENT DAILY ESTIMATED NEEDS: Needs based on cardiac, pulmonary 63.6kg 25-30 kcals/kg 4796-0904 total kcals 1-1.5 g protein/kg 64-95 g total protein 25-30 mL/kg 8800-4492 total fluid mLs NUTRITION DIAGNOSIS: Swallowing difficulty r/t dysphagia, h/o CVA as evidenced by pt is PEG dep. CURRENT TF:NPO ENTERAL NUTRITION RECOMMENDATIONS: Glucerna 1.2 @ 57ml/hr x 24 hrs to provide 1368ml, 1642kcal, 82g prot, 1101ml free water - As medically able, rec to start TF Glucerna 1.2 - Initiate Glucerna 1.2 @ 27ml/hr X 6 hrs, advance 10ml q 4-6 hrs as tolerated to goal rate. - HOB over 30 degrees/ water flush per MD ---- ADDITIONAL RECOMMENDATIONS: 1) Calibrated bed scale wt 2) F/up w/ WC eval (per wound photo) 3) Monitor lytes daily, replete as needed 4) F/up w/ H&P . .
[2018-11-14 11:48] LABS: ALANINE AMINOTRANSFERASE 19 U/L (12-78); ALBUMIN 3.5 G/DL (3.4-5.0); ALBUMIN/GLOBULIN RATIO 0.8 (1.0-2.7); ALKALINE PHOSPHATASE 165 U/L (46-116); ANION GAP 12 mmol/L (5-15); ASPARTATE AMINO TRANSFERASE 16 U/L (15-37); BILIRUBIN,TOTAL 0.7 MG/DL (0.2-1.0); BLOOD UREA NITROGEN 10 mg/dL (7-18); CALCIUM 8.9 MG/DL (8.5-10.1); CARBON DIOXIDE 22 MMOL/L (21-32); CHLORIDE 105 MMOL/L (98-107); CREATININE 0.8 MG/DL (0.55-1.30); POTASSIUM 3.8 MMOL/L (3.5-5.1); SODIUM 139 MMOL/L (136-145)
[2018-11-14 12:00] VITALS: BP 121/94
--- NOTE | 2018-11-14 12:11 | Cardiology Report ---
APPROVED REPORT EKG Measurement Heart [id number] Normal sinus rhythm Normal ECG
[2018-11-14 16:00] VITALS: BP 130/88
--- NOTE | 2018-11-14 17:36 | History & Physical ---
History and Physical History & Physicial HISTORY OF PRESENT ILLNESS: The patient was admitted for abd distension. This has been a recurrent problem and often resolves w a rectal tube which was placed but did not improve the condition. CT abd was neg and now he is better after being NPO since last night. He does not seem to have pain or tenderness. The ER MD thought he had a UTI but he does not. PAST MEDICAL HISTORY: CVA with right hemiparesis as well as expressive aphasia, hypertension, coronary artery disease, COPD, G-tube placement with multiple episodes of G- tube malfunction, cerebral hemorrhage, seizure disorder, dysphagia, GT site cellulitis and tube malfcn. SOCIAL HISTORY: Unavailable. MEDICATIONS: Pre-hospital and current hospital medications reviewed and reconciled and documented in the electronic medical record by dose, frequency, and route. ALLERGIES: None. REVIEW OF SYSTEMS: Unavailable as the patient has expressive aphasia. PHYSICAL EXAMINATION: GENERAL: At the time of my exam, he is awake. He is currently in no acute respiratory distress. VITAL SIGNS: He is afebrile. Pulse is high, BP high HEENT: Normocephalic, atraumatic. Oropharynx is dry. Nasal mucosa is dry. NECK: Supple. LUNGS: Decreased at bases. HEART: Regular rate and rhythm without murmur. ABDOMEN: Soft, nontender. Not distended or tympanitic. GT in place. EXTREMITIES: He has no edema NEUROLOGIC: He has right hemiparesis, expressive aphasia. LABORATORY DATA: reviewed. UA with 1-2 WBCs IMAGING: disc w Dr Yousif ASSESSMENT: abd distension, improved history of seizure,history of CVA from a right intracranial hemorrhage, right hemiparesis, expressive aphasia, hypertension, coronary artery disease. PLAN: Admitted. His present medications have been resumed. Will resume feeding and plan early dc if tolerated. DC abx. Jose J Oquendo MD November 14, 2018 17:36
[2018-11-14] MEDS ORDERED: Metoclopramide 10mg/10ml Liq GT PRN (18:15)
[2018-11-14] MEDS ORDERED: METOCLOPRA10 MG/10 M GT (18:53)
[2018-11-14] MEDS ORDERED: REGLAN10 MG GT (18:54)
[2018-11-14] MEDS ORDERED: DOXAZOSIN MESYLA2 MG GT (18:56)
[2018-11-14] MEDS ORDERED: BISACODYL10 M1 RC (18:58)
--- NOTE | 2018-11-14 19:41 | NUR ---
HAND-OFF: Report given to Barb CHOPRA.
--- NOTE | 2018-11-14 19:42 | NUR ---
NURSE NOTES: Received patient in no apparent distress. A&OX3. IV site patent and intact. G-tube in place, just started feeding, Glucerna 1.5 25cc/hr, 0cc residual noted, flushed, elevated HOB. Lynn cath draining well by gravity, yellow urine noted. Bed in lowest position. Call light within reach. Will continue to monitor.
[2018-11-14 20:00] VITALS: BP 134/94
--- NOTE | 2018-11-14 21:35 | General Progress Note ---
Assessment/Plan Assessment/Plan: GI CONSULT Assessment - Abdominal distention w/o significant underlying pathology on CT - Diarrhea - S/p PEG Recommendations - OK to resume TF - Check stool C Diff and Cx - monitor exam and residuals Thank you Trip David MD Subjective Allergies: Coded Allergies: NO KNOWN ALLERGIES (Unverified Allergy, Unknown, 03/02/15) Objective Last 24 Hour Vital Signs Date Time Temp Pulse Resp B/P (MAP) Pulse Ox O2 Delivery O2 Flow Rate FiO2 11/14/18 21:09 134/94 11/14/18 21:09 83 134/94 11/14/18 16:00 98.6 88 20 130/88 (102) 97 11/14/18 13:34 115 121/94 11/14/18 12:00 98.2 115 20 121/94 (103) 95 11/14/18 09:00 Room Air 11/14/18 08:00 97.2 100 20 140/95 (110) 94 11/14/18 05:09 Room Air 11/14/18 03:50 98.6 93 19 155/88 96 Nasal Cannula 2.0 11/13/18 23:06 99 19 Nasal Cannula 2.0 11/13/18 23:06 98.6 93 19 155/88 96 Nasal Cannula 2.0 11/13/18 22:48 98.6 99 19 155/88 (110) 96 Nasal Cannula 2.0 Intake and Output 11/13/18 11/14/18 19:00 07:00 Intake Total 0 ml Output Total 500 ml Balance -500 ml Intake Oral 0 ml Output Urine Total 500 ml Laboratory Tests 11/13/18 23:45: White Blood Count 8.3, Red Blood Count 5.03, Hemoglobin 14.6, Hematocrit 44.0, Mean Corpuscular Volume 88, Mean Corpuscular Hemoglobin 29.0, Mean Corpuscular Hemoglobin Concent 33.1, Red Cell Distribution Width 13.5, Platelet Count 342, Mean Platelet Volume 6.4L, Neutrophils (%) (Auto) 67.4, Lymphocytes (%) (Auto) 18.8L, Monocytes (%) (Auto) 9.3, Eosinophils (%) (Auto) 3.6H, Basophils (%) ( Auto) 0.9, Prothrombin Time 10.6, Prothromb Time International Ratio 1.0, Activated Partial Thromboplast Time 32, Sodium Level 138, Potassium Level 4.1, Chloride Level 103, Carbon Dioxide Level 24, Anion Gap 11, Blood Urea Nitrogen 17, Creatinine 0.9, Estimat Glomerular Filtration Rate > 60, Glucose Level 111H , Calcium Level 10.2H, Total Bilirubin 0.6, Aspartate Amino Transf (AST/SGOT) 17 , Alanine Aminotransferase (ALT/SGPT) 25, Alkaline Phosphatase 192H, Total Creatine Kinase 44, Troponin I 0.000, Total Protein 9.2H, Albumin 4.2, Globulin 5.0, Albumin/Globulin Ratio 0.8L, Lipase 264 11/14/18 01:43: Urine Color Pale yellow, Urine Appearance Slightly cloudy, Urine pH 9, Urine Specific [place] 1.010, Urine Protein 2+H, Urine Glucose (UA) Negative, Urine Ketones Negative, Urine Blood 2+H, Urine Nitrite PositiveH, Urine Bilirubin Negative, Urine Urobilinogen Normal, Urine Leukocyte Esterase 1+H, Urine RBC 2- 4H, Urine WBC 0-2, Urine Squamous Epithelial Cells Occasional, Urine Calcium Oxalate Crystals Many, Urine Amorphous Sediment ModerateH, Urine Bacteria Few 11/14/18 10:45: White Blood Count 8.8, Red Blood Count 4.68L, Hemoglobin 13.3L, Hematocrit 41.0L , Mean Corpuscular Volume 88, Mean Corpuscular Hemoglobin 28.5, Mean Corpuscular Hemoglobin Concent 32.5, Red Cell Distribution Width 13.1, Platelet Count 304, Mean Platelet Volume 5.9L, Neutrophils (%) (Auto) 74.8, Lymphocytes ( %) (Auto) 18.3L, Monocytes (%) (Auto) 6.0, Eosinophils (%) (Auto) 0.4, Basophils (%) (Auto) 0.6, Sodium Level 139, Potassium Level 3.8, Chloride Level 105, Carbon Dioxide Level 22, Anion Gap 12, Blood Urea Nitrogen 10, Creatinine 0.8, Estimat Glomerular Filtration Rate > 60, Glucose Level 105, Calcium Level 8.9, Total Bilirubin 0.7, Aspartate Amino Transf (AST/SGOT) 16, Alanine Aminotransferase (ALT/SGPT) 19, Alkaline Phosphatase 165H, Total Protein 7.7, Albumin 3.5, Globulin 4.2, Albumin/Globulin Ratio 0.8L Height (Feet): 5 Height (Inches): 4.00 Weight (Pounds): 140 Trip David MD November 14, 2018 21:35
--- NOTE | 2018-11-14 23:30 | Consultation ---
DATE OF CONSULTATION: 11/14/2018 GASTROENTEROLOGY CONSULTATION: CONSULTING PHYSICIAN: Trip David M.D. CHIEF COMPLAINT: I was asked to see this patient by Dr. Jose J Oquendo for evaluation of abdominal distention. HISTORY OF PRESENT ILLNESS: The patient is a debilitated 63-year-old man with chronic gastrostomy tube who was brought into the hospital due to abdominal distention. The patient himself is minimally verbal due to his previous cerebral hemorrhage and therefore most of the information was only available from the chart. The patient has a long-standing gastrostomy tube due to expressive aphasia, right hemiparesis, and dysphagia. He has been noted to have abdominal distention, but CT scan of the abdomen and pelvis did not show any evidence of ascites or obstruction. The patient has been off of his tube feeding. He does have diarrhea. PAST MEDICAL HISTORY: History of stroke with right-sided hemiparesis and contractures, expressive aphasia, hypertension, coronary artery disease, COPD, status post gastrostomy tube placement, history of gastrostomy tube malfunction, seizure disorder, history of gastrostomy site cellulitis. FAMILY HISTORY: Noncontributory. SOCIAL HISTORY: The patient requires round the clock care. ALLERGIES: None. MEDICATIONS: See the chart list for details. REVIEW OF SYSTEMS: Otherwise negative. PHYSICAL EXAMINATION: GENERAL: Debilitated white man, seen is in his room. HEENT: Normocephalic and atraumatic. Sclerae anicteric. Oropharynx clear. Dentition is poor. NECK: Supple. CHEST: Clear to auscultation. CARDIOVASCULAR: Revealed a regular rate. ABDOMEN: Soft, but obese and distended. There is no obvious organomegaly or tenderness. Gastrostomy tube is in good position. EXTREMITIES: Revealed contractures in the right upper extremity. NEUROLOGIC: Notable for right hemiparesis and expressive aphasia. LABORATORY DATA: Noted. ASSESSMENT: This patient presents with abdominal distention, but does not seem to be a space-occupying process on the abdominal CT for bowel obstruction. There is also some ascites. The patient's abdominal distention may therefore be simply due to central obesity and abdominal girth issues. I will restart oral tube feeding and follow his exam. In the meantime, he also has diarrhea, but perhaps it could have been certain degree of enteritis contributing to his abdominal distention. I will check his stool for Clostridium difficile and also cultures. RECOMMENDATIONS: Per above discussion and per orders written in the chart. Thank you for asking me to participate in the care of this patient. Trip David M.D. DR: LEONARD JOB#: [id number] CC: [id number]
[2018-11-15] VITALS: BP 129/71
[2018-11-15 04:00] VITALS: BP 139/94
--- NOTE | 2018-11-15 07:25 | NUR ---
HAND-OFF: Report given to Lexi CHOPRA.
--- NOTE | 2018-11-15 07:33 | NUR ---
NURSE NOTES: Patient received sleeping in bed, breathing unlabored on room air. No signs of respiratory distress or pain observed. Feeding running at 35cc currently, to meet goal of 45cc in 2 hours. IV site on left hand patent and intact, fluids running at 100cc/hr. Lynn catheter intact draining straw colored urine. Padded siderails for seizure precautions. HOB elevated. Bed locked in lowest position. Call light placed within reach, will continue to monitor.
[2018-11-15 08:00] VITALS: BP 144/94
[2018-11-15] MEDS ORDERED: Aspirin Baby 81mg GT SCH (09:00)
[2018-11-15 12:00] VITALS: BP 106/63
--- NOTE | 2018-11-15 14:26 | Pulmonology Progress Note ---
Assessment/Plan Assessment/Plan tolerating feeds no distension no diarrhea dc to snf Subjective ROS Limited/Unobtainable: Yes Constitutional: Reports: no symptoms Allergies: Coded Allergies: NO KNOWN ALLERGIES (Unverified Allergy, Unknown, 03/02/15) Objective Last 24 Hour Vital Signs Date Time Temp Pulse Resp B/P (MAP) Pulse Ox O2 Delivery O2 Flow Rate FiO2 11/15/18 13:14 86 106/63 11/15/18 12:00 98.1 86 18 106/63 (77) 97 11/15/18 09:00 Room Air 11/15/18 08:31 75 139/94 11/15/18 08:31 139/94 11/15/18 08:00 97.8 81 19 144/94 (111) 96 11/15/18 05:49 75 139/94 11/15/18 04:00 98.0 75 18 139/94 (109) 98 11/15/18 00:00 98.1 84 19 129/71 (90) 95 11/14/18 21:09 134/94 11/14/18 21:09 83 134/94 11/14/18 21:00 Room Air 11/14/18 20:00 97.2 83 18 134/94 (107) 96 11/14/18 16:00 98.6 88 20 130/88 (102) 97 Intake and Output 11/14/18 11/15/18 19:00 07:00 Intake Total 100 ml 1625 ml Output Total 1125 ml 450 ml Balance -1025 ml 1175 ml Free Water 200 ml IV Total 100 ml 1100 ml Tube Feeding 325 ml Output Urine Total 1125 ml 450 ml # Bowel Movements 2 General Appearance: no acute distress Respiratory/Chest: lungs clear Abdomen: soft, non tender, no organomegaly Microbiology Date/Time Source Procedure Growth Status 11/14/18 00:26 Nasal Nares MRSA Culture - Final Staphylococcus Aureus - Mrsa Complete 11/14/18 09:40 Stool Clostridium difficile Toxin Assay - Final Complete 11/14/18 00:26 Rectum Received Current Medications Medications (Trade) Dose Ordered Sig/Kehinde Route PRN Reason Start Time Stop Time Status Last Admin Dose Admin Acetaminophen (Tylenol) 650 mg Q6H PRN NG Mild Pain/Temp > 100.5 11/14/18 09:30 12/14/18 09:29 Amlodipine Besylate (Norvasc) 10 mg DAILY GT 5/31/19 09:00 12/15/18 08:59 11/15/18 08:31 Aspirin (ASA) 81 mg DAILY GT 11/15/18 09:00 12/15/18 08:59 11/15/18 08:31 Barium Sulfate (Readi-Cat 2) 450 ml NOW PRN ORAL Radiology Procedure 11/13/18 23:15 11/15/18 23:07 Dextrose/ Electrolytes 1,000 ml @ 100 mls/hr Q10H IV 11/14/18 10:00 12/14/18 09:59 11/15/18 05:41 Enalapril Maleate (Vasotec) 20 mg EVERY 12 HOURS GT 11/14/18 21:00 12/14/18 20:59 11/15/18 08:31 Finasteride (Proscar) 5 mg DAILY ORAL 11/15/18 09:00 12/15/18 08:59 11/15/18 08:31 Iopamidol (Isovue-300 100ml) 100 ml NOW PRN INJ Radiology Procedure 11/13/18 23:15 11/15/18 23:14 Lansoprazole (Prevacid) 30 mg DAILY GT 11/15/18 09:00 12/15/18 08:59 11/15/18 08:31 Metoclopramide HCl (Reglan) 10 mg Q6H PRN GT Nausea & Vomiting 11/14/18 18:15 12/14/18 18:14 Metoprolol Tartrate (Lopressor) 100 mg Q8HR GT 11/14/18 14:00 12/14/18 13:59 11/15/18 13:14 Jose J Oquendo MD November 15, 2018 14:26
[2018-11-15 16:00] VITALS: BP 137/89
--- NOTE | 2018-11-15 19:20 | NUR ---
NURSE NOTES: Pt received in bed, alert but nonverbal, nods to conversation, IV in place and needs to be removed upon discharge, feeding pump stopped, will give report to ambulance upon draft roller picker.
--- NOTE | 2018-11-15 19:21 | NUR ---
HAND-OFF: Report given to Farrah CHOPRA.
[2018-11-15 20:00] VITALS: BP 135/94
--- NOTE | 2018-11-15 20:23 | NUR ---
NURSE NOTES: Pt picked up by ambulance, IV discontinued and ID band removed, pt with no belongings.
--- NOTE | 2018-11-15 21:33 | General Progress Note ---
Assessment/Plan Assessment/Plan: Assessment - Abdominal distention w/o significant underlying pathology on CT - Diarrhea - resolved - S/p PEG Recommendations - resume TF - Check stool C Diff and Cx - neg so far - monitor exam and residuals - d/c planning Subjective Allergies: Coded Allergies: NO KNOWN ALLERGIES (Unverified Allergy, Unknown, 03/02/15) Subjective diarrhea resolved tolerating TF for d/c today Objective Last 24 Hour Vital Signs Date Time Temp Pulse Resp B/P (MAP) Pulse Ox O2 Delivery O2 Flow Rate FiO2 11/15/18 16:00 97.8 74 18 137/89 (105) 94 11/15/18 13:14 86 106/63 11/15/18 12:00 98.1 86 18 106/63 (77) 97 11/15/18 09:00 Room Air 11/15/18 08:31 75 139/94 11/15/18 08:31 139/94 11/15/18 08:00 97.8 81 19 144/94 (111) 96 11/15/18 05:49 75 139/94 11/15/18 04:00 98.0 75 18 139/94 (109) 98 11/15/18 00:00 98.1 84 19 129/71 (90) 95 Intake and Output 11/14/18 11/15/18 19:00 07:00 Intake Total 100 ml 1670 ml Output Total 1125 ml 450 ml Balance -1025 ml 1220 ml Free Water 200 ml IV Total 100 ml 1100 ml Tube Feeding 370 ml Output Urine Total 1125 ml 450 ml # Bowel Movements 2 Height (Feet): 5 Height (Inches): 4.00 Weight (Pounds): 140 Objective Debilitated NCAT supple CTA RRR abd soft obese (R) ximena Trip David MD November 15, 2018 21:33
--- NOTE | 2018-11-18 12:51 | Discharge Summary ---
Discharge Summary Discharge Summary _ DATE OF ADMISSION: 11/13/2018 DATE OF DISCHARGE: 11/15/2018 DISCHARGED BY: Dr. 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 This was a recurrent problem for this patient and often resolved if a rectal tube placed for decompression. But at this time rectal tube did not help , and patient was sent to ER for evaluation. CT of the abdomen and pelvis in emergency department revealed no acute pathology. Chest x-ray revealed borderline cardiomegaly and mild interstitial congestion. Laboratory work-up revealed no leukocytosis, stable hemoglobin and hematocrit. Stable electrolytes. Troponin negative. Urinalysis revealed sediment and was turbid, +2 protein. EKG revealed no acute ischemic changes. Patient subsequently was admitted for further management. CONSULTANTS: GI specialist Dr. David [facility] COURSE: Patient admitted to medical surgical floor. GI specialist follow. Stool cultures stool for C. difficile were both negative. Initially started antibiotic in the emergency department stopped. Patient was slowly started on tube feeding with strict aspiration precaution . Home medications were resumed. Diarrhea resolved. Patient was able to tolerate tube feeding. DVT and GI prophylaxis provided. Patient was managed with current antihypertensive regimen and remained stable. No evidence of seizure activity. Abdominal distention resolved. Patient was stable for discharge to group home facility for continuation of care. FINAL DIAGNOSES: Diarrhea- resolved Abdominal distention-resolved Dysphagia, G-tube feeding Seizure disorder History of CVA secondary to right intracranial hemorrhage with right hemiparesis and expressive aphasia Hypertension Coronary artery disease DISCHARGE MEDICATIONS: See Medication Reconciliation list. DISCHARGE INSTRUCTIONS: Patient was discharged to the group home facility. Follow up with medical doctor at the facility. I have been assigned to dictate discharge summary for this account. I was not involved in the patient's management. Mimi Feliz NP Nov 18, 2018 12:51
== END 2018-11-15 20:25 | disposition short-term general hospital (02) | DRG 392 ==
LOC: EDBD 22:54 → EDBEDREQ 23:11 → EMR 23:38 → 4E 23:53 → EDBEDREQ 11-14 00:09
DX: R14.0 Abdominal distension (gaseous) (principal); I69.151 Hemiplegia and hemiparesis following nontraumatic intracerebral hemorrhage affecting right dominant side; I69.120 Aphasia following nontraumatic intracerebral hemorrhage; R19.7 Diarrhea, unspecified; J44.9 Chronic obstructive pulmonary disease, unspecified; K21.9 Gastro-esophageal reflux disease without esophagitis; N40.0 Benign prostatic hyperplasia without lower urinary tract symptoms; I10 Essential (primary) hypertension; I25.10 Atherosclerotic heart disease of native coronary artery without angina pectoris; G40.909 Epilepsy, unspecified, not intractable, without status epilepticus; Z93.1 Gastrostomy status; I69.191 Dysphagia following nontraumatic intracerebral hemorrhage
CPT/HCPCS: 36415; 71045; 74177; 80053; 81003; 82550; 83690; 84484; 85025; 85610; 85730; 86850; 86900; 86901; 87045; 87081; 87324; 93005; 96361; 96365; 96375; 99285; J2765